=== PATIENT | male | born 1985 | race Caucasian/White ===

== ENCOUNTER 2020-07-17 13:14 | Emergency (ER) | payer MEDICAID, SELFPAY ==
--- NOTE | 2020-07-17 | XR_ITS ---
EXAMINATION: XR SHOULDER, RIGHT CLINICAL INFORMATION: Pain status-post fall. COMPARISON: None TECHNIQUE: AP external rotation and scapular Y views of the right shoulder are submitted. FINDINGS: There is a comminuted, displaced fracture of the mid third of the right clavicle. There is 3.5 cm of overriding of fracture fragments. The distal fracture fragment shows greater than one shaft width of caudal displacement. The right glenohumeral joint is intact. The acromioclavicular and coracoclavicular intervals are normal. No soft tissue gas or foreign body is seen. There is no right pneumothorax. IMPRESSION: Findings are consistent with a comminuted, displaced mid third right clavicular fracture.
--- NOTE | 2020-07-17 | CT_ITS ---
EXAMINATION: CT HEAD WITHOUT CONTRAST CLINICAL INFORMATION: Fall with loss of consciousness. COMPARISON: CT head noncontrast 07/11/2020, 02/20/2018 TECHNIQUE: Contiguous axial imaging was performed from the skull base to vertex without intravenous administration of contrast. Additional 2-D coronal and sagittal reformatted images are generated on the CT workstation and uploaded to PACS. DOSE LOWERING TECHNIQUES: This CT examination was performed using dose optimization techniques as appropriate, variously including the following: *Automated exposure control *Adjustment of mA and/or kV according to patient size (this includes techniques or standardized protocols for targeted exams where dose is matched to indication/reason for exam; i.e. extremities or head) *Use of iterative reconstruction technique DLP: 703 mGy-cm FINDINGS: There is no intracranial hemorrhage, hematoma, or extra-axial fluid collection. The ventricles are normal in size. There is no hydrocephalus, edema, or mass effect. There is encephalomalacia and gliosis inferior right frontal lobe similar to prior study. There is no edema or mass effect. The remainder of the thomson-white matter differentiation appears symmetric. There is no midline shift. There is no visible acute territorial infarct or mass lesion. The calvarium appears intact. There is no pneumocephalus or orbital emphysema. The visualized sinuses and middle ears and mastoid air cells show no significant mucosal thickening. There are no air-fluid levels. IMPRESSION: No acute intracranial abnormality.
--- NOTE | 2020-07-17 | CT_ITS ---
EXAMINATION: CT CERVICAL SPINE WITHOUT CONTRAST CLINICAL INFORMATION: Fall with loss of consciousness COMPARISON: CT cervical spine noncontrast 02/20/2018 TECHNIQUE: Multidetector volumetric CT imaging of the cervical spine is performed without contrast in the axial plane. Additional 2D reformatted coronal and sagittal images are generated on the CT workstation and uploaded to PACS. DOSE LOWERING TECHNIQUES: This CT examination was performed using dose optimization techniques as appropriate, variously including the following: *Automated exposure control *Adjustment of mA and/or kV according to patient size (this includes techniques or standardized protocols for targeted exams where dose is matched to indication/reason for exam; i.e. extremities or head) *Use of iterative reconstruction technique DLP: 410 mGy-cm FINDINGS: There is no vertebral compression fracture, fracture line, spondylolisthesis, or prevertebral soft tissue swelling. The craniocervical junction appears normal. The odontoid appears intact. There is normal cervical lordosis. There are no significant degenerative changes. There is no apical pneumothorax. IMPRESSION: No acute bony abnormality or prevertebral soft tissue swelling.
--- NOTE | 2020-07-17 | XR_ITS ---
EXAMINATION: XR CLAVICLE, RIGHT CLINICAL INFORMATION: Pain. COMPARISON: None TECHNIQUE: Single view of the right clavicle. FINDINGS: There is a comminuted, displaced fracture of the mid third of the right clavicle. The distal fracture fragment shows 1.0 cm of caudal displacement, and there is 3.5 cm of overriding of fracture fragments. The acromioclavicular and coracoclavicular intervals are normal. The soft tissue planes are unremarkable. No right pneumothorax is seen. IMPRESSION: A comminuted, displaced fracture is seen of the mid third of the right clavicle.
--- NOTE | 2020-07-17 | XR_ITS ---
EXAMINATION: XR RIBS, BILATERAL WITH PA CHEST CLINICAL INFORMATION: Pain status-post fall. COMPARISON: Radiographs of the left ribs dated 11/22/2015; right clavicular and shoulder radiographs dated 07/17/2020; prior chest radiograph as remote as 07/06/2016.. TECHNIQUE: 2 views of the left ribs were obtained, together with 2 PA views of the chest. FINDINGS: Lungs are clear. No consolidation, pneumothorax, or pleural effusion. The cardiomediastinal silhouette and pulmonary vasculature are normal. There is a healed fracture of the anterior left 10th rib, seen on prior chest radiographs as remote as 07/06/2016. There is an adjacent healed or healing fracture of the distal left 9th rib, with mild displacement and adjacent periosteal thickening. There is no dislocation. A mid third right clavicular fracture is redemonstrated. IMPRESSION: 1. There is a chronic, healed fracture of the left 10th rib. There is an adjacent, healed or healing fracture of the distal left ninth rib. Please correlate clinically. No pleural effusion or pneumothorax is seen. 2. No definite acute fracture is seen. 3. A mid third right clavicular fracture is redemonstrated.
[2020-07-17 15:00] VITALS: BP 129/77; PULSE 99; RESP 20; TEMP 37.1; O2SAT 98; BMI 24.3
--- NOTE | 2020-07-17 15:09 | ED.FALL ---
HPI - Fall General Chief Complaint: Fall <AMADA Coats Last Filed: 07/17/20 17:43> Stated Complaint: LEG, NECK PAIN - FELL DOWN FLIGHT OF STAIRS <AMADA Coats Last Filed: 07/17/20 17:43> Time Seen by Provider: 07/17/20 14:49 <AMADA Coats Last Filed: 07/17/20 17:43> Source: patient <AMADA Coats Last Filed: 07/17/20 17:43> Mode of arrival: ambulatory <AMADA Coats Last Filed: 07/17/20 17:43> Limitations: no limitations <AMADA Coats Last Filed: 07/17/20 17:43> History of Present Illness HPI Narrative: 35 y/o male presenting with right sided shoulder and chest pain s/p fall yesterday. He states he was intoxicated and fell down a set of stairs, unknown how many. He thinks he lost consciousness but he was so intoxicated that he doesn't remember much about the current events. <AMADA Coats Last Filed: 07/17/20 17:43> Related Data Home Medications: Previous Rx's Medication Instructions Recorded ibuprofen 600 mg PO Q6H PRN #30 tab NS 07/17/20 <AMADA Coats Last Filed: 07/17/20 17:43> Allergies/Adverse Reactions: Allergies Allergy/AdvReac Type Severity Reaction Status Date / Time shellfish derived Allergy Unknown HIVES Verified 07/17/20 17:39 [SHELLFISH DERIVED] SEAFOOD Allergy Unknown UNKNOWN Uncoded 07/02/20 15:29 <AMADA Coats Last Filed: 07/17/20 17:43> Review of Systems Constitutional: Constitutional: Reports body ache(s), Denies chills, Denies fever(s), Denies headache(s) and Denies weakness <AMADA Coats Last Filed: 07/17/20 17:43> Eyes: Eyes: Reports no additional eye complaints <AMADA Coats Last Filed: 07/17/20 17:43> ENT: Reports system reviewed and no additional complaints, except as documented, Denies vertigo, Denies dizziness, Denies headache(s), Denies lip swelling, Denies epistaxis and Denies disequilibrium <AMADA Coats Last Filed: 07/17/20 17:43> Cardiovascular: Cardiovascular: Denies chest pain, Denies chest pain with activity, Denies rapid heart rate, Denies pedal edema, Reports claudication, Reports Loss of Consciousness and Denies dyspnea <AMADA Coats Last Filed: 07/17/20 17:43> Respiratory: Respiratory: Denies chest congestion, Denies hemoptysis, Denies dyspnea and Denies wheezing <AMADA Coats Last Filed: 07/17/20 17:43> Gastrointestinal: Gastrointestinal: Reports no additional gastrointestinal complaints <AMADA Coats Last Filed: 07/17/20 17:43> Genitourinary: Genitourinary: Denies hematuria and Denies dysuria <AMADA Coats Last Filed: 07/17/20 17:43> Musculoskeletal: Musculoskeletal: Reports myalgias, Reports deformity (right shoulder) and Denies tingling <AMADA Coats Last Filed: 07/17/20 17:43> Neurologic: Denies vertigo, Denies dizziness, Denies headache(s), Denies focal weakness, Reports memory loss, Denies convulsions, Denies seizure-like activity, Denies Sensory deficit (Neuro), Denies tingling, Denies paresthesias, Denies disequilibrium and Denies weakness <AMADA Coats Last Filed: 07/17/20 17:43> Psychiatric: Psychiatric: Reports memory loss <AMADA Coats Last Filed: 07/17/20 17:43> Endocrine: Endocrine: Reports no additional endocrine complaints <AMADA Coats Last Filed: 07/17/20 17:43> Hematologic/Lymphatic: Hematologic/Lymphatic: Reports easy bruising <AMADA Coats Last Filed: 07/17/20 17:43> Allergic/Immunologic: Allergic/Immunologic: Denies lip swelling and Denies wheezing <AMADA Coats Last Filed: 07/17/20 17:43> PMFSH Past Medical History Medical History: Medical History (Updated 10/03/20 @ 00:01 by Emile Osborne) Seizure <AMADA Coats - Last Filed: 07/17/20 17:43> Social History Social History: Social History Alcohol intake: current Alcohol intake frequency: 3 or more drinks per day Smoking Status: Never smoker Use of substances other than those prescribed or required for medical reasons: Yes Substance Use Type: Crack/Cocaine Last Used Substance: Unknown Advance Directives: No Advance Directives Information Provided: No <AMADA Coats Last Filed: 07/17/20 17:43> Physical Exam Vital Signs and I&O and Narrative: Vital Signs and I&O: Vital Signs Temp 98.8 F 07/17/20 15:00 Pulse 79 07/17/20 15:58 Resp 16 07/17/20 15:58 BP 115/74 07/17/20 15:58 Pulse Ox 99 07/17/20 15:58 Intake & Output 07/17/20 07/17/20 07/18/20 06:59 18:59 06:59 Weight 72.575 kg Body Mass Index 24.3 <AMADA Coats - Last Filed: 07/17/20 17:43> Vital Signs and I&O: Vital Signs Temp 98.8 F 07/17/20 15:00 Pulse 79 07/17/20 15:58 Resp 16 07/17/20 15:58 BP 115/74 07/17/20 15:58 Pulse Ox 99 07/17/20 15:58 Intake & Output 07/17/20 07/17/20 07/18/20 06:59 18:59 06:59 Weight 72.575 kg Body Mass Index 24.3 <Kamron Rodríguez DO - Last Filed: 07/18/20 01:58> Const: General: cooperative, healthy appearing, comfortable and no acute distress <AMADA Coats Last Filed: 07/17/20 17:43> Orientation/consciousness: patient oriented x3 <AMADA Coats Last Filed: 07/17/20 17:43> HENMT: Head: Yes normal to inspection <AMADA Coats Last Filed: 07/17/20 17:43> Ears: hearing grossly normal bilaterally <AMADA Coats Last Filed: 07/17/20 17:43> General nose exam: Normal external nose present <AMADA Coats - Last Filed: 07/17/20 17:43> Face and sinus: Yes normal facial exam <AMADA Coats Last Filed: 07/17/20 17:43> Mouth: Normal oral and palatal mucosa present <AMADA Coats - Last Filed: 07/17/20 17:43> Teeth and gingiva: dentition normal <AMADA Coats - Last Filed: 07/17/20 17:43> Throat: Yes posterior oropharynx normal <AMADA Coats - Last Filed: 07/17/20 17:43> Eyes: General: appearance normal, both eyes and all related structures <AMADA Coats Last Filed: 07/17/20 17:43> Neck: Neck: Yes full ROM and Yes trachea midline <AMADA Coats Last Filed: 07/17/20 17:43> Chest: Chest palpation & inspection: abnormal inspection of the chest swelling (anterior superior portion); no erythema and no crepitus <AMADA Coats Last Filed: 07/17/20 17:43> Resp: Effort & Inspection: normal respiratory effort <AMADA Coats Last Filed: 07/17/20 17:43> Auscultation: clear to auscultation bilaterally <AMADA Coats Last Filed: 07/17/20 17:43> Cardio: Rate: regular rate <AMADA Coats Last Filed: 07/17/20 17:43> Rhythm: regular rhythm <AMADA Coats Last Filed: 07/17/20 17:43> Heart sounds: S1 normal heart sound present and S2 normal heart sound present <AMADA Coats Last Filed: 07/17/20 17:43> GI: Inspection: Yes normal to inspection <AMADA Coats Last Filed: 07/17/20 17:43> Palpation (GI): Soft to palpation and nontender <AMADA Coats Last Filed: 07/17/20 17:43> Percussion: Yes normal to percussion <AMADA Coats - Last Filed: 07/17/20 17:43> : General: Yes no CVA tenderness <AMADA Coats - Last Filed: 07/17/20 17:43> Back/Spine/Pelvis: Back: no CVA tenderness <AMADA Coats - Last Filed: 07/17/20 17:43> Cervical Spine: cervical ROM normal, No Cervical spine tenderness and No step off deformity <AMADA Coats - Last Filed: 07/17/20 17:43> Thoracic/Lumbar Spine: thoracic and lumbar spine normal to inspection and thoraco-lumbar ROM normal <AMADA Coats - Last Filed: 07/17/20 17:43> Pelvis: no pain with anterior-posterior compression <AMADA Coats - Last Filed: 07/17/20 17:43> Skin: Trauma: abrasion (to right knee and anterior gordon ) <AMADA Coats - Last Filed: 07/17/20 17:43> Neuro: General: patient oriented x3 and gait normal <AMADA Coats - Last Filed: 07/17/20 17:43> Cranial nerves: Yes CN's II-XII intact bilaterally <AMADA Coats - Last Filed: 07/17/20 17:43> Sensory Exam: No Sensory deficit (Neuro) <AMADA Coats - Last Filed: 07/17/20 17:43> Psych: Appearance: grossly normal <AMADA Coats - Last Filed: 07/17/20 17:43> Mental Status: mental status grossly normal <AMADA Coats - Last Filed: 07/17/20 17:43> Speech and movement: Normal speech and movement present <AMADA Coats Last Filed: 07/17/20 17:43> Course Course Hospital Course: exam consistent with right clavicular fracture, possible rub fracture however less likely. ecchymosis on LUE noted - will check CPK to r/o rhabdo given his downtime was unknown. no clinical evidence of compartment syndrome. XR and CT scan head/neck ordered <AMADA Coats - Last Filed: 07/17/20 17:43> Reevaluation(s) Reevaluation #1: XR shows clavilcular fracture. will place in sling for comfort. awaiting read of CT head/neck <AMADA Coats - Last Filed: 07/17/20 17:43> Reevaluation #2: CT head/cervical spine showed no acute abnormalities. mild rhabdo without CONI. results d/w patient - placed in sling. stable for d/c and plan to f/u with ortho <AMADA Coats - Last Filed: 07/17/20 17:43> MDM - Fall Differential Diagnosis Differential diagnosis: Likely dislocation, fracture and concussion with loss of consciousness <AMADA Coats Last Filed: 07/17/20 17:43> Lab Data Result diagrams: : 07/17/20 16:05 07/17/20 16:05 <AMADA Coats - Last Filed: 07/17/20 17:43> Labs: Lab Results 07/17/20 07/17/20 07/17/20 Range/Units 16:05 16:05 16:05 WBC 6.2 (4.8-10.8) X10*3/uL RBC 3.61 L (4.60-5.80) X10*6/uL Hgb 12.7 L (14.0-18.0) g/dl Hct 38.0 L (42-52) % MCV 105.3 H (80-98) fL MCH 35.2 H (27.0-33.0) pg MCHC 33.4 (31.0-36.0) g/dl RDW 13.8 (11.0-16.0) % Plt Count 210 (160-400) X10*3/uL MPV 9.0 L (9.4-12.4) fL Immature Gran % (Auto) 0.3 (0.0-0.4) % Neut % (Auto) 56.3 (45-73) % Lymph % (Auto) 23.9 (20-40) % [place] % (Auto) 16.9 H (2-11) % Eos % (Auto) 1.8 (0-4) % Baso % (Auto) 0.8 (0-2) % Neut # (Auto) 3.5 (2.0-8.3) X10*3/uL Lymph # (Auto) 1.5 (1.2-4.9) X10*3/uL [place] # (Auto) 1.1 (0.1-1.2) X10*3/uL Eos # (Auto) 0.1 (0.0-0.4) X10*3/uL Baso # (Auto) 0.1 (0.0-0.2) X10*3/uL Abs Immat Gran (auto) 0.02 (0.00-0.03) X10*3/uL Absolute Nucleated RBC 0.000 (0.0-0.012) X10*3/uL Nucleated RBC % (auto) 0.0 (0.0-0.2) /100WBC Sodium 143 (135-145) mmol/L Potassium 3.7 (3.3-5.1) mmol/l Chloride 103 (96-108) mmol/L Carbon Dioxide 29 (22-29) mmol/L Anion Gap 15 (12-20) BUN 5 L (9-16) mg/dL Creatinine 0.75 (0.5-1.4) mg/dL Estim Creat Clear Calc 133.0 Estimated GFR > 60 Random Glucose 87 (60-115) mg/dL Calcium 9.0 (8.4-10.2) mg/dL Total Creatine Kinase 1236 H (38-174) U/L Ethyl Alcohol 168 mg/dL <AMADA Coats - Last Filed: 07/17/20 17:43> Lab Results 07/17/20 07/17/20 07/17/20 Range/Units 16:05 16:05 16:05 WBC 6.2 (4.8-10.8) X10*3/uL RBC 3.61 L (4.60-5.80) X10*6/uL Hgb 12.7 L (14.0-18.0) g/dl Hct 38.0 L (42-52) % MCV 105.3 H (80-98) fL MCH 35.2 H (27.0-33.0) pg MCHC 33.4 (31.0-36.0) g/dl RDW 13.8 (11.0-16.0) % Plt Count 210 (160-400) X10*3/uL MPV 9.0 L (9.4-12.4) fL Immature Gran % (Auto) 0.3 (0.0-0.4) % Neut % (Auto) 56.3 (45-73) % Lymph % (Auto) 23.9 (20-40) % [place] % (Auto) 16.9 H (2-11) % Eos % (Auto) 1.8 (0-4) % Baso % (Auto) 0.8 (0-2) % Neut # (Auto) 3.5 (2.0-8.3) X10*3/uL Lymph # (Auto) 1.5 (1.2-4.9) X10*3/uL [place] # (Auto) 1.1 (0.1-1.2) X10*3/uL Eos # (Auto) 0.1 (0.0-0.4) X10*3/uL Baso # (Auto) 0.1 (0.0-0.2) X10*3/uL Abs Immat Gran (auto) 0.02 (0.00-0.03) X10*3/uL Absolute Nucleated RBC 0.000 (0.0-0.012) X10*3/uL Nucleated RBC % (auto) 0.0 (0.0-0.2) /100WBC Sodium 143 (135-145) mmol/L Potassium 3.7 (3.3-5.1) mmol/l Chloride 103 (96-108) mmol/L Carbon Dioxide 29 (22-29) mmol/L Anion Gap 15 (12-20) BUN 5 L (9-16) mg/dL Creatinine 0.75 (0.5-1.4) mg/dL Estim Creat Clear Calc 133.0 Estimated GFR > 60 Random Glucose 87 (60-115) mg/dL Calcium 9.0 (8.4-10.2) mg/dL Total Creatine Kinase 1236 H (38-174) U/L Ethyl Alcohol 168 mg/dL <Kamron Rodríguez DO - Last Filed: 07/18/20 01:58> Critical Care Time Critical Care Time Critical Care Time: No <AMADA Coats - Last Filed: 07/17/20 17:43> Discharge Plan Discharge Clinical Impression: Broken clavicle, Rhabdomyolysis, Alcohol abuse <AMADA Coats - Last Filed: 07/17/20 17:43> Patient Disposition: Home, Self-Care <AMADA Coats - Last Filed: 07/17/20 17:43> Instructions: Clavicle Fracture (ED), Rhabdomyolysis (ED), Abuse of Alcohol (ED) <AMADA Coats - Last Filed: 07/17/20 17:43> Additional Instructions: Wear a sling to to your right arm and limit due of that arm so that your collar bone can heal. Use ice for 20 minutes at a time several times per day to help with pain and swelling. Follow up [facility] and your Primary Care doctor. Stay hydrated. <AMADA Coats - Last Filed: 07/17/20 17:43> Prescriptions: New ibuprofen 600 mg tablet 600 mg PO Q6H PRN (Reason: pain) Qty: 30 RF: 0 <AMADA Coats - Last Filed: 07/17/20 17:43> Referrals: Mary Cortez MD [Physician] - 2 days <AMADA Coats - Last Filed: 07/17/20 17:43> Interventions: ED Discharge Assessment Last Done: 07/17/20 18:05 <AMADA Coats - Last Filed: 07/17/20 17:43> Discharge Date/Time: 07/17/20 18:12 <AMADA Coats - Last Filed: 07/17/20 17:43>
[2020-07-17] MEDS: Acetaminophen 325 MG TABLET 650 MG PO (15:49)
[2020-07-17 15:58] VITALS: BP 115/74; PULSE 79; RESP 16; O2SAT 99
[2020-07-17 16:13] LABS: MANUAL DIFF FLAG NO
[2020-07-17 16:15] LABS: Basophils Absolute Auto 0.1 X10*3/uL (0.0-0.2); Basophils Percent Auto 0.8 % (0-2); Eosinophils Absolute Auto 0.1 X10*3/uL (0.0-0.4); Eosinophils Percent Auto 1.8 % (0-4); Hemoglobin 12.7 g/dl (14.0-18.0); Imm Gran Abs Auto 0.02 X10*3/uL (0.00-0.03); Imm Gran Pct Auto 0.3 % (0.0-0.4); Lymphocytes Absolute Auto 1.5 X10*3/uL (1.2-4.9); Lymphocytes Percent Auto 23.9 % (20-40); Mean Corpuscular HGB Conc 33.4 g/dl (31.0-36.0); Mean Corpuscular Hemoglobin 35.2 pg (27.0-33.0); Mean Corpuscular Volume 105.3 fL (80-98); Monocytes Absolute Auto 1.1 X10*3/uL (0.1-1.2); Monocytes Percent Auto 16.9 % (2-11); Neutrophils Absolute Auto 3.5 X10*3/uL (2.0-8.3); Neutrophils Percent Auto 56.3 % (45-73); Platelet Count 210 X10*3/uL (160-400); Red Blood Count 3.61 X10*6/uL (4.60-5.80); Red Cell Distribution Width 13.8 % (11.0-16.0); White Blood Count 6.2 X10*3/uL (4.8-10.8)
[2020-07-17 16:51] LABS: Ethanol 168 mg/dL
[2020-07-17 16:53] LABS: Anion Gap 15 (12-20); Blood Urea Nitrogen 5 mg/dL (9-16); Carbon Dioxide 29 mmol/L (22-29); Chloride 103 mmol/L (96-108); Estimated Glomerular Filt Rate > 60; Glucose Random 87 mg/dL (60-115); Potassium 3.7 mmol/l (3.3-5.1); Sodium 143 mmol/L (135-145)
== END 2020-07-17 18:12 | disposition home or self-care (01) ==
PROVIDERS: Physician Assistant; Emergency Provider Emergency Medicine
DX: F10.10 Alcohol abuse, uncomplicated (principal); Y90.6 Blood alcohol level of 120-199 mg/100 ml; S42.031A Displaced fracture of lateral end of right clavicle, initial encounter for closed fracture; T79.6XXA Traumatic ischemia of muscle, initial encounter; W10.8XXA Fall (on) (from) other stairs and steps, initial encounter; F14.90 Cocaine use, unspecified, uncomplicated; Y93.9 Activity, unspecified; Y92.9 Unspecified place or not applicable; Y99.9 Unspecified external cause status
CPT/HCPCS: 36415; 70450; 71110; 72125; 73000; 73030; 80048; 80320; 82550; 85025; 99284

== ENCOUNTER 2020-07-18 20:44 | Emergency (ER) | payer MEDICAID, SELFPAY ==
[2020-07-18 20:52] VITALS: BP 125/84; PULSE 84; RESP 16; TEMP 36.5; BMI 22.9
--- NOTE | 2020-07-18 21:06 | ED_ITS ---
HPI - Alcohol General Chief Complaint: ETOH/Substance Use Stated Complaint: etoh Time Seen by Provider: 07/18/20 21:06 Source: patient, EMS and RN notes reviewed Mode of arrival: EMS History of Present Illness HPI narrative: This is a 35-year-old male with significant past medical history of alcohol intoxication and dependence who is brought in via EMS for same. He states he drink to, 25 oz, beers earlier today and denies wanting any detox. In addition, he is reporting 5 to 6/10 pain secondary to prior injuries that were previously evaluated. Otherwise, he denies fevers, chills, shortness of breath, chest pain / palpitations,nausea, vomiting, abdominal pain, or diarrhea. Patient denies any new trauma Chronic alcohol use: Yes Previous visits for alcohol intoxication: Yes Recent trauma: Yes Related Data Previous Rx's Medication Instructions Recorded ibuprofen 600 mg PO Q6H PRN #30 tab NS 07/17/20 Allergies Allergy/AdvReac Type Severity Reaction Status Date / Time shellfish derived Allergy Unknown HIVES Verified 07/17/20 17:39 [SHELLFISH DERIVED] SEAFOOD Allergy Unknown UNKNOWN Uncoded 07/02/20 15:29 Review of Systems Review of Systems: Pertinent positives and negatives as stated in HPI and 10 point review of systems is otherwise negative. [facility] Past Medical History Medical History Asthma Seizure Social History Social History Alcohol intake: current Alcohol intake frequency: 3 or more drinks per day Alcohol type: beer and hard liquor Smoking Status: Current every day smoker Use of substances other than those prescribed or required for medical reasons: Yes Substance Use Type: Crack/Cocaine Substance Use Frequency: Chronic Longstanding Last Used Substance: Hours (ago) Advance Directives: No Advance Directives Information Provided: No Physical Exam Vital Signs and I&O and Narrative: Vital Signs and I&O: Vital Signs Temp 97.8 F 07/18/20 22:28 Pulse 85 07/19/20 02:00 Resp 16 07/19/20 02:00 BP 106/61 07/19/20 02:00 Pulse Ox 97 07/19/20 02:00 Intake & Output 07/18/20 07/18/20 07/19/20 06:59 18:59 06:59 Weight 72.575 kg Body Mass Index 22.9 VITAL SIGNS: Reviewed. GENERAL: Well developed, well nourished, in no acute distress , intoxicated, smells of alcohol. HEAD: Normocephalic/atraumatic, EYES: PERRLA, EOMI intact without pain, no nystagmus/pallor/icterus noted EARS: Ext canals without abnormality, TMs non-bulging and non-erythematous NOSE: Nares patent bilateral OROPHARYNX: no oral lesions noted, posterior pharynx clear and non-erythematous without noted tonsillar enlargement/erythema/exudates NECK: Supple, no adenopathy LUNGS: Normal breath sounds. No adventitious sounds or accessory muscle use. SpO2<> CARDIOVASCULAR: Regular rate and rhythm without noted murmurs, no JVD or lower extremity edema. ABDOMEN: Soft, non-tender, non-distended with bowel sounds. No rigidity. No guarding. No palpable masses or hernias noted MUSCULOSKELETAL: there is tenderness and ecchymosis to the right clavicle with known fracture as well as extensive ecchymosis of the left upper extremity with maintenance of neurovascular distal to the area of ecchymosis, otherwise there are no acute findings on gross inspection. EXTREMITIES: No cyanosis, clubbing or edema. SKIN: Inspection of the skin reveals no rashes, ulcerations, jaundice, pallor, or petechiae. NEUROLOGIC: Alert and oriented x 4. Strength and sensation to light touch were grossly intact Course Course Hospital Course: This is a 35-year-old male that while he is intoxicated there are no acute findings that would preclude him from being discharged as long as he has a safe drive and place to go. As per the patient this would be provided by his . 0500: on re-evaluation patient is clinically sober for discharge with a steady gait, alert and oriented x4. MDM - Alcohol MDM Narrative Medical decision making narrative: This is a 35-year-old male with history and clinical presentation consistent with alcohol dependence and intoxication, not suicidal, and is declining detox at this time. Lab Data Labs: Lab Results 07/18/20 Range/Units 23:31 Ethyl Alcohol 286 mg/dL Discharge Plan Discharge Clinical Impression: Alcoholic intoxication Qualifiers: Complication of substance-induced condition: uncomplicated Qualified Code(s): F10.920 - Alcohol use, unspecified with intoxication, uncomplicated Patient Disposition: Home, Self-Care Instructions: Alcohol Intoxication (ED) Additional Instructions: The patient and/or family acknowledge understanding of results (as applicable), diagnosis, treatment plan, need for follow up, and symptoms that should prompt a return to the emergency room. Prescriptions: No Action ibuprofen 600 mg tablet 600 mg PO Q6H PRN (Reason: pain) Qty: 30 RF: 0 Referrals: Kelly Fajardo [Emergency Nurse] - 2 days ( alcohol dependence)
--- NOTE | 2020-07-18 21:29 | PC.NURSE ---
PT UPRIGHT IN BED, OFFERS NO ACUTE COMPLAINTS. THIS RN SPOKE W/ PT'S SPS WHO WAS ADVISED OF PLAN OF CARE, PER DR GHOTRA PT OK FOR D/C W/ SOBER RIDE HOME, OTHERWISE PT MUST SOBER UP IN ED.
[2020-07-18 22:28] VITALS: BP 114/68; PULSE 85; RESP 18; TEMP 36.6; O2SAT 98
--- NOTE | 2020-07-18 22:37 | PC.NURSE ---
PT L SIDE LYING IN BED SLEEPING, RR EVEN UNLABORED, SKIN WPD, NAD. PT AWOKEN BY TECH FOR VITALS, PT REQUESTING FOOD, PROVIDED SANDWICH, PT BACK TO SLEEP.
--- NOTE | 2020-07-18 23:08 | PC.NURSE ---
Report received. Patient sleeping in bed. Arousable.
[2020-07-18 23:59] LABS: Ethanol 286 mg/dL
[2020-07-19] VITALS: BP 113/62; PULSE 82; RESP 14; O2SAT 93
--- NOTE | 2020-07-19 01:55 | PC.NURSE ---
Report received. Sleeping. Arousable.
[2020-07-19 02:00] VITALS: BP 106/61; PULSE 85; RESP 16; O2SAT 97
--- NOTE | 2020-07-19 03:44 | PC.NURSE ---
pt sleeping rr even and reg no s/s of distress. report received from Kelly hastings
--- NOTE | 2020-07-19 04:25 | PC.NURSE ---
pt is awake alert talking in full sentences asking beverages and given. skin warm and dry. no tremors felt or visable.
[2020-07-19 04:37] VITALS: BP 120/76; PULSE 74; RESP 16; O2SAT 99
--- NOTE | 2020-07-19 05:00 | PC.NURSE ---
pt ambulated in hallway with steady gait. pt has lucy po fluids and snacks with no n/v/d. pt skin in pink warm and dry. pt is aox3 with no s/s of distress noted.
== END 2020-07-19 05:13 | disposition home or self-care (01) ==
PROVIDERS: Emergency Provider Student in an Organized Health Care Education/Training Program
DX: F10.220 Alcohol dependence with intoxication, uncomplicated (principal); Y90.8 Blood alcohol level of 240 mg/100 ml or more; F17.200 Nicotine dependence, unspecified, uncomplicated
CPT/HCPCS: 36415; 80320; 99284

== ENCOUNTER → 2020-12-10 13:27 | Outpatient (BNVA) | payer MEDICAID, SELFPAY | PROVIDERS: PCP Internal Medicine; Visit Provider Internal Medicine | DX: I45.5 Other specified heart block (principal); R55 Syncope and collapse; G47.10 Hypersomnia, unspecified; G47.30 Sleep apnea, unspecified; R56.9 Unspecified convulsions | CPT/HCPCS: 93005; 99212 ==

== ENCOUNTER 2020-12-21 15:45 | Emergency (ER) | payer MEDICAID, SELFPAY ==
--- NOTE | ~2020-12-21 | XR_ITS ---
EXAMINATION: XR CHEST CLINICAL INFORMATION: Chest pain COMPARISON: Chest x-ray 05/12/2020 TECHNIQUE: 2 views of the chest were obtained. FINDINGS: Cardiac monitoring device over the left anterior chest. No significant abnormality is noted involving the heart, lungs, mediastinum, bony thorax or soft tissues. XR/XR chest 2V IMPRESSION: Unremarkable examination.
--- NOTE | ~2020-12-21 | CT_ITS ---
EXAMINATION: CT HEAD WITHOUT CONTRAST CT CERVICAL SPINE WITHOUT CONTRAST CLINICAL INFORMATION: Fall. Pain. COMPARISON: CT head and CT cervical spine 07/17/2020 TECHNIQUE: Imaging was performed from the skull base to vertex without intravenous administration of contrast. In addition, helical noncontrast CT imaging was acquired through the cervical spine and source images were reviewed along with axial reconstructions and sagittal and coronal MPRs. [This CT examination was performed using dose optimization techniques as appropriate, variously including the following: *Automated exposure control *Adjustment of mA and/or kV according to patient size (this includes techniques or standardized protocols for targeted exams where dose is matched to indication/reason for exam; i.e. extremities or head) *Use of iterative reconstruction technique] DLP: 1118 mGy-cm FINDINGS: HEAD: There is no evidence of acute intracranial hemorrhage or acute territorial infarction. 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 No abnormal mass-effect or midline shift is seen. Sena to white matter differentiation is well preserved. No extra-axial fluid collections are identified. There is atrophy with prominence of the ventricles and the sulci and hypodensity of the periventricular white matter due to chronic small vessel ischemic disease. There are vascular calcifications of the internal carotid arteries bilaterally. There is no osseous abnormality. The mastoid air cells and visualized portions of the paranasal sinuses are well-aerated. CERVICAL SPINE: There is no evidence of acute cervical spine fracture. Vertebral bodies remain normal in height. Cervical vertebrae have normal alignment. Cervical disc heights are normal. The facet joints are normal. No pre- or paravertebral soft tissue abnormality is identified. Limited assessment of the lung apices is unremarkable. There is multilevel fracture of the right clavicle CT/CT head/brain wo con IMPRESSION: 1. No acute intracranial pathology. 2. No CT evidence of acute cervical spine fracture or traumatic subluxation
--- NOTE | ~2020-12-21 | CT_ITS ---
EXAMINATION: CT HEAD WITHOUT CONTRAST CLINICAL INFORMATION: Trauma to the head COMPARISON: CT head 07/11/2020 TECHNIQUE: Contiguous axial imaging was performed from the skull base to vertex without intravenous administration of contrast. Coronal and sagittal reformatted images are performed at the CT scanner. [This CT examination was performed using dose optimization techniques as appropriate, variously including the following: *Automated exposure control *Adjustment of mA and/or kV according to patient size (this includes techniques or standardized protocols for targeted exams where dose is matched to indication/reason for exam; i.e. extremities or head) *Use of iterative reconstruction technique] DLP: 703 mGy-cm. FINDINGS: There is no evidence of acute intracranial hemorrhage or acute territorial infarction. 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 No abnormal mass-effect or midline shift is seen. Sena to white matter differentiation is well preserved. No extra-axial fluid collections are identified. There is atrophy with prominence of the ventricles and the sulci and hypodensity of the periventricular white matter due to chronic small vessel ischemic disease. There are vascular calcifications of the internal carotid arteries bilaterally. There is no osseous abnormality. The mastoid air cells and visualized portions of the paranasal sinuses are well-aerated. CT/CT head/brain wo con IMPRESSION: No acute intracranial pathology.
--- NOTE | ~2020-12-21 | CT_ITS ---
EXAMINATION: CT CERVICAL SPINE WITHOUT CONTRAST CLINICAL INFORMATION: Fall, hit head COMPARISON: None TECHNIQUE: Helical imaging of the cervical spine was performed in the axial plane. Reformatted sagittal and coronal images were obtained. This CT examination was performed using dose optimization techniques as appropriate, variously including the following: *Automated exposure control *Adjustment of mA and/or kV according to patient size (this includes techniques or standardized protocols for targeted exams where dose is matched to indication/reason for exam; i.e. extremities or head) *Use of iterative reconstruction technique DLP: 1118 mGy-cm (in total with CT of the head) FINDINGS: There is mild straightening of the normal lordosis of the cervical spine. Vertebral body heights and intervertebral disc spaces are maintained. The posterior elements are intact. The left lateral mass of C1 is slightly anterior to the left lateral mass of C2 and the right lateral mass of C1 is slightly posterior in relation to the lateral mass of C2, likely due to the patient's head slightly rotated towards the right. The paravertebral soft tissues are normal. There is minimal pleural parenchymal scarring in the lung apices Spinal levels: C2-C3: Normal. C3-C4: Normal. C4-C5: Normal. C5-C6: Normal. C6-C7: Normal. C7-T1: Normal. CT/CT cervical spine wo con IMPRESSION: No acute bony abnormality of the cervical spine.
[2020-12-21 16:11] VITALS: BP 141/107; BP 180/110; PULSE 94; RESP 18; TEMP 36.6; O2SAT 98; BMI 25.1
--- NOTE | 2020-12-21 17:41 | ECG_ITS ---
Test Reason : SYNCOPE Blood Pressure : / mmHG Vent. Rate : 82 BPM Atrial Rate : 110 BPM P-R Int : 162 ms QRS Dur : 084 ms QT Int : 362 ms P-R-T Axes : 65 045 056 degrees QTc Int : 422 ms Normal sinus rhythm Normal ECG When compared with ECG of 21-DEC-2020 18:06, Premature ventricular complexes are no longer Present Referred By: Claudia Moon Electronically Signed By: Alistair MARIN
[2020-12-21] MEDS: Acetaminophen 325 MG TABLET 650 MG PO (17:58)
--- NOTE | 2020-12-21 18:08 | ED_ITS ---
HPI - General Adult General Chief complaint: General Medical Stated complaint: CP,ETOH INTOXICATION Time Seen by Provider: 12/21/20 17:22 Source: EMS Mode of arrival: EMS Limitations: no limitations History of Present Illness HPI narrative: 35-year-old male with a past medical history of seizure disorder, syncope, substance abuse, sinus pauses with ILR placed, RAND here s/p reported seizure. Patient has been a has history of seizures and this occurs when he decrease his alcohol intake. He tells me today he started to have an aura and the next thing he knew he woke up on the ground. He was incontinent. He tells me his brother told him he had a seizure. His brother is not here and unable to reach at this time. Right now he is complaining of a headache, nausea, generalized weakness. He is not currently taking any antiepileptics and does not see a neurologist. He has decreased his alcohol intake over the last week but is unable to quantify how much alcohol he drinks. He was also complaining of some chest discomfort to nursing but is denying this to me. No neck pain, back pain, chest pain, abdominal pain, vomiting, diarrhea. Related Data Home Medications Medication Instructions Recorded Confirmed No Known Home Meds 12/10/20 12/10/20 Allergies Allergy/AdvReac Type Severity Reaction Status Date / Time shellfish derived Allergy Unknown HIVES Verified 12/21/20 16:07 [SHELLFISH DERIVED] SEAFOOD Allergy Unknown UNKNOWN Uncoded 07/02/20 15:29 Review of Systems Review of Systems: Yes all other systems are reviewed and are negative Constitutional: Constitutional: Reports no additional constitutional complai nts, Denies body ache(s), Denies chills, Denies fever(s), Reports headache(s) and Reports weakness Eyes: Eyes: Reports no additional eye complaints and Denies change in vision ENT: Reports system reviewed and no additional complaints, except as documented, Denies dizziness, Reports headache(s), Denies nasal congestion, Denies nasal discharge and Denies neck pain Cardiovascular: Cardiovascular: Reports no additional cardiovascular complaints, Denies chest pain, Denies leg edema and Denies dyspnea Respiratory: Respiratory: Reports no additional respiratory complaints, Denies cough and Denies dyspnea Gastrointestinal: Gastrointestinal: Reports no additional gastrointestinal complaints, Denies abdominal pain, Denies diarrhea, Reports nausea and Denies vomiting Genitourinary: Genitourinary: Denies urinary incontinence Musculoskeletal: Musculoskeletal: Reports no additional musculoskeletal c omplaints, Denies back pain, Denies arthralgias, Denies joint swelling, Denies neck pain, Denies numbness and Denies tingling Integumentary/Breasts: Skin/Breast: Reports system reviewed and no additional complaints, except as docu and Denies rash Neurologic: Reports system reviewed and no additional complaints, except as documented, Denies Abnormal speech present, Denies dizziness, Reports headache(s), Denies numbness, Denies tingling and Reports weakness PMFSH Past Medical History Attestation statement: The following information was validated with the patient. Source: old records reviewed and nursing notes reviewed Medical History Asthma Seizure Syncope Surgical History History of mandibular surgery Family History Family History Maternal Grandfather Heart disease Mother Diabetes HTN (hypertension) Father Diabetes Social History Social History Alcohol intake: current Alcohol intake frequency: 3 or more drinks per day Alcohol type: hard liquor Smoking Status: Never smoker Cigarettes Per Day: 2 Years Smoked: 10 Use of substances other than those prescribed or required for medical reasons: No Substance Use Type: Crack/Cocaine Advance Directives: No Advance Directives Information Provided: No Physical Exam Vital Signs: Vital Signs: Last Vital Signs Temp 98.4 F 12/22/20 00:00 Pulse 78 12/22/20 00:00 Resp 18 12/22/20 00:00 BP 101/66 12/22/20 00:00 Pulse Ox 96 12/22/20 00:00 Body Mass Index 25.1 Const: General: cooperative, healthy appearing, comfortable and no acute distress Orientation/consciousness: patient oriented x3 Limitations: no limitations HENMT: Head: Yes normal to inspection Ears: hearing grossly normal bilaterally General nose exam: Normal external nose present Face and sinus: Yes normal facial exam Mouth: Normal oral and palatal mucosa present Throat: Yes posterior oropharynx normal Eyes: General: appearance normal, both eyes and all related structures Pupils: Equal, round and reactive pupils present Neck: Other: No midline tenderness, step-offs or deformities. Full range of motion. Neck: Yes normal visual inspection Chest: Chest palpation & inspection: normal inspection of the chest Resp: Effort & Inspection: normal respiratory effort Auscultation: clear to auscultation bilaterally Cardio: Rate: regular rate Rhythm: regular rhythm Peripheral pulses: Peripheral pulses 2+ throughout GI: Inspection: Yes normal to inspection Palpation (GI): Soft to palpation and nontender Auscultation: normal bowel sounds Back/Spine/Pelvis: Thoracic/Lumbar Spine: thoracic and lumbar spine normal to inspection Skin: General skin exam: no rashes or lesions noted Neuro: General: patient oriented x3, no focal motor deficits, normal sensation to monofilament and Unable to assess gait Cranial nerves: Yes CN's II-XII intact bilaterally, Yes Equal, round and reactive pupils present, Yes Bilaterally intact EOM present, Yes Nystagmus not present and Yes Normal facial strength present Cognition (Neuro): normal cognition Speech: No Abnormal speech present Gait exam (Neuro): Unable to assess gait Motor exam (neuro): 5/5 motor strength present throughout Sensory Exam: Normal double simultaneous stimulation for sensation Extrem: General: Yes normal to inspection Course Course Course Narrative: 35 year old male here status post witnessed seizure by family per patient although family unavailable to comment or be reached. Patient tells me that he has seizures when he decrease his alcohol intake and he has been decreasing his alcohol intake over the last week. On arrival mild tremor, mild hypertension. Alert oriented with neuro is intact. Is complaining of a headache, generalized weakness, nausea. Will need imaging head and neck, chest x-ray, EKG, labs, drug screen. 2100-Less likely seizure with normal lactic acid, only mildly elevated cpk. Mildly elevated lfts which is likely secondary to alcohol use and appear only mildly increased from baseline. Alcohol 404 so also less likely alcohol withdrawal seizure. Imaging unremarkable. Will plan for observation with sober re-eval. Placed in physician observation until sober re-eval. 0200-Sign out to night team pending sober re-eval. Medical Decision Making Medical Records Medical records reviewed: Yes I reviewed the patient's medical records. Lab Data Lab results reviewed: Yes I reviewed the patient's lab results. Result diagrams: 12/21/20 17:57 12/21/20 17:57 Labs: Lab Results 12/21/20 12/21/20 12/21/20 Range/Units 17:57 17:57 17:57 WBC 4.4 L (4.8-10.8) X10*3/uL RBC 4.38 L D (4.60-5.80) X10*6/uL Hgb 15.6 D (14.0-18.0) g/dl Hct 45.6 (42-52) % MCV 104.1 H (80-98) fL MCH 35.6 H (27.0-33.0) pg MCHC 34.2 (31.0-36.0) g/dl RDW 12.9 (11.0-16.0) % Plt Count 183 (160-400) X10*3/uL MPV 10.0 (9.4-12.4) fL Immature Gran % (Auto) 0.9 H (0.0-0.4) % Neut % (Auto) 38.8 L (45-73) % Lymph % (Auto) 49.8 H (20-40) % Gillespie % (Auto) 8.4 (2-11) % Eos % (Auto) 0.7 (0-4) % Baso % (Auto) 1.4 (0-2) % Lymph # (Auto) 2.2 (1.2-4.9) X10*3/uL Gillespie # (Auto) 0.4 (0.1-1.2) X10*3/uL Eos # (Auto) 0.0 (0.0-0.4) X10*3/uL Baso # (Auto) 0.1 (0.0-0.2) X10*3/uL Abs Immat Gran (auto) 0.04 H (0.00-0.03) X10*3/uL Absolute Neuts (auto) 1.7 L (2.0-8.3) X10*3/uL Absolute Nucleated RBC 0.000 (0.0-0.012) X10*3/uL Nucleated RBC % (auto) 0.0 (0.0-0.2) /100WBC PT (10.8-13.0) SEC INR (0.9-1.1) Sodium 147 H (135-145) mmol/L Potassium 4.0 (3.3-5.1) mmol/L Chloride 107 (96-108) mmol/L Carbon Dioxide 29 (22-29) mmol/L Anion Gap 15 (12-20) BUN 11 D (9-16) mg/dL Creatinine 0.81 (0.5-1.4) mg/dL Estim Creat Clear Calc 127.2 Estimated GFR > 60 Random Glucose 125 H D (60-115) mg/dL Lactic Acid (0.5-2.0) mmol/L Calcium 8.2 L D (8.4-10.2) mg/dL Magnesium 2.3 (1.6-2.6) mg/dL Total Bilirubin 0.5 (0.0-1.0) mg/dL Direct Bilirubin 0.3 (0.0-0.5) mg/dL AST 95 H (5-37) U/L ALT 84 H (0-40) U/L Alkaline Phosphatase 108 (39-117) U/L Total Creatine Kinase (38-174) U/L Troponin I High Sens 3.6 (<3.5-35.0) ng/L Total Protein 8.5 H (6.5-8.0) g/dL Albumin 4.3 (3.5-5.0) g/dL Urine Opiates Screen (Not Detect) Ur Barbiturates Screen (Not Detect) Ur Phencyclidine Scrn (Not Detect) Ur Amphetamines Screen (Not Detect) U Benzodiazepines Scrn (Not Detect) Urine Cocaine Screen (Not Detect) U Marijuana (THC) Screen (Not Detect) Ethyl Alcohol mg/dL COVID-19 (DARRYL) (Negative) COVID-19 Clin Com 12/21/20 12/21/20 12/21/20 Range/Units 17:57 17:57 17:57 WBC (4.8-10.8) X10*3/uL RBC (4.60-5.80) X10*6/uL Hgb (14.0-18.0) g/dl Hct (42-52) % MCV (80-98) fL MCH (27.0-33.0) pg MCHC (31.0-36.0) g/dl RDW (11.0-16.0) % Plt Count (160-400) X10*3/uL MPV (9.4-12.4) fL Immature Gran % (Auto) (0.0-0.4) % Neut % (Auto) (45-73) % Lymph % (Auto) (20-40) % Gillespie % (Auto) (2-11) % Eos % (Auto) (0-4) % Baso % (Auto) (0-2) % Lymph # (Auto) (1.2-4.9) X10*3/uL Gillespie # (Auto) (0.1-1.2) X10*3/uL Eos # (Auto) (0.0-0.4) X10*3/uL Baso # (Auto) (0.0-0.2) X10*3/uL Abs Immat Gran (auto) (0.00-0.03) X10*3/uL Absolute Neuts (auto) (2.0-8.3) X10*3/uL Absolute Nucleated RBC (0.0-0.012) X10*3/uL Nucleated RBC % (auto) (0.0-0.2) /100WBC PT 13.7 H (10.8-13.0) SEC INR 1.2 H (0.9-1.1) Sodium (135-145) mmol/L Potassium (3.3-5.1) mmol/L Chloride (96-108) mmol/L Carbon Dioxide (22-29) mmol/L Anion Gap (12-20) BUN (9-16) mg/dL Creatinine (0.5-1.4) mg/dL Estim Creat Clear Calc Estimated GFR Random Glucose (60-115) mg/dL Lactic Acid 1.8 (0.5-2.0) mmol/L Calcium (8.4-10.2) mg/dL Magnesium (1.6-2.6) mg/dL Total Bilirubin (0.0-1.0) mg/dL Direct Bilirubin (0.0-0.5) mg/dL AST (5-37) U/L ALT (0-40) U/L Alkaline Phosphatase (39-117) U/L Total Creatine Kinase (38-174) U/L Troponin I High Sens (<3.5-35.0) ng/L Total Protein (6.5-8.0) g/dL Albumin (3.5-5.0) g/dL Urine Opiates Screen (Not Detect) Ur Barbiturates Screen (Not Detect) Ur Phencyclidine Scrn (Not Detect) Ur Amphetamines Screen (Not Detect) U Benzodiazepines Scrn (Not Detect) Urine Cocaine Screen (Not Detect) U Marijuana (THC) Screen (Not Detect) Ethyl Alcohol mg/dL COVID-19 (DARRYL) Negative (Negative) COVID-19 Clin Com See Note 12/21/20 12/21/20 12/21/20 Range/Units 17:57 17:57 17:57 WBC (4.8-10.8) X10*3/uL RBC (4.60-5.80) X10*6/uL Hgb (14.0-18.0) g/dl Hct (42-52) % MCV (80-98) fL MCH (27.0-33.0) pg MCHC (31.0-36.0) g/dl RDW (11.0-16.0) % Plt Count (160-400) X10*3/uL MPV (9.4-12.4) fL Immature Gran % (Auto) (0.0-0.4) % Neut % (Auto) (45-73) % Lymph % (Auto) (20-40) % Gillespie % (Auto) (2-11) % Eos % (Auto) (0-4) % Baso % (Auto) (0-2) % Lymph # (Auto) (1.2-4.9) X10*3/uL Gillespie # (Auto) (0.1-1.2) X10*3/uL Eos # (Auto) (0.0-0.4) X10*3/uL Baso # (Auto) (0.0-0.2) X10*3/uL Abs Immat Gran (auto) (0.00-0.03) X10*3/uL Absolute Neuts (auto) (2.0-8.3) X10*3/uL Absolute Nucleated RBC (0.0-0.012) X10*3/uL Nucleated RBC % (auto) (0.0-0.2) /100WBC PT (10.8-13.0) SEC INR (0.9-1.1) Sodium (135-145) mmol/L Potassium (3.3-5.1) mmol/L Chloride (96-108) mmol/L Carbon Dioxide (22-29) mmol/L Anion Gap (12-20) BUN (9-16) mg/dL Creatinine (0.5-1.4) mg/dL Estim Creat Clear Calc Estimated GFR Random Glucose (60-115) mg/dL Lactic Acid (0.5-2.0) mmol/L Calcium (8.4-10.2) mg/dL Magnesium (1.6-2.6) mg/dL Total Bilirubin (0.0-1.0) mg/dL Direct Bilirubin (0.0-0.5) mg/dL AST (5-37) U/L ALT (0-40) U/L Alkaline Phosphatase (39-117) U/L Total Creatine Kinase 254 H D (38-174) U/L Troponin I High Sens (<3.5-35.0) ng/L Total Protein (6.5-8.0) g/dL Albumin (3.5-5.0) g/dL Urine Opiates Screen Not Detected (Not Detect) Ur Barbiturates Screen Not Detected (Not Detect) Ur Phencyclidine Scrn Not Detected (Not Detect) Ur Amphetamines Screen Not Detected (Not Detect) U Benzodiazepines Scrn Not Detected (Not Detect) Urine Cocaine Screen Not Detected (Not Detect) U Marijuana (THC) Screen Not Detected (Not Detect) Ethyl Alcohol 407 H* mg/dL COVID-19 (DARRYL) (Negative) COVID-19 Clin Com Imaging Data Chest x-ray: Attestation: I personally reviewed and interpreted this imaging study as follows: Radiologist's impression: [address] [id number] ReportSigned Patient: Duarte Bailon DMR#: [id number]: 1985Acct:[id number]/Sex: 35 / MADM Date: 12/21/20Loc: [address]: Ordering Physician: SERAFIN CHANG NP Date of Service: 12/21/20 Procedure(s): XR chest 2V Accession Number(s): [id number] cc: BERNARDO,SERAFIN HOST/HOSTESS HEAD~ EXAMINATION: XR CHEST CLINICAL INFORMATION: Chest pain COMPARISON: Chest x-ray 05/12/2020 TECHNIQUE: 2 views of the chest were obtained. FINDINGS: Cardiac monitoring device over the left anterior chest. No significant abnormality is noted involving the heart, lungs, mediastinum, bony thorax or soft tissues. XR/XR chest 2V IMPRESSION: Unremarkable examination. ct head/neck: Attestation: I personally reviewed and interpreted this imaging study as follows: Radiologist's impression: 1. No acute intracranial pathology. 2. No CT evidence of acute cervical spine fracture or traumatic subluxation ECG Data Attestation: I personally reviewed and interpreted this ECG as follows: Interpretation: NSR with rate 82, normal pr, normal qrs, normal qtc Discharge Plan Discharge Clinical Impression: Alcohol intoxication Qualifiers: Complication of substance-induced condition: with unspecified complication Qualified Code(s): F10.929 - Alcohol use, unspecified with intoxication, unspecified Patient Disposition: Home, Self-Care Instructions: Abuse of Alcohol (ED) Additional Instructions: You were offered detox but you declined this. Do not try to detox at home. Prescriptions: No Action No Known Home Meds RF: 0 Referrals: [facility] [Primary Care Provider] - 2 days
[2020-12-21 18:09] LABS: MANUAL DIFF FLAG NO
[2020-12-21 18:11] LABS: Basophils Absolute Auto 0.1 X10*3/uL (0.0-0.2); Basophils Percent Auto 1.4 % (0-2); Eosinophils Percent Auto 0.7 % (0-4); Hematocrit 45.6 % (42-52); Hemoglobin 15.6 g/dl (14.0-18.0); Imm Gran Abs Auto 0.04 X10*3/uL (0.00-0.03); Imm Gran Pct Auto 0.9 % (0.0-0.4); Lymphocytes Absolute Auto 2.2 X10*3/uL (1.2-4.9); Lymphocytes Percent Auto 49.8 % (20-40); Mean Corpuscular HGB Conc 34.2 g/dl (31.0-36.0); Mean Corpuscular Hemoglobin 35.6 pg (27.0-33.0); Mean Corpuscular Volume 104.1 fL (80-98); Monocytes Absolute Auto 0.4 X10*3/uL (0.1-1.2); Monocytes Percent Auto 8.4 % (2-11); Neutrophils Absolute Auto 1.7 X10*3/uL (2.0-8.3); Neutrophils Percent Auto 38.8 % (45-73); Platelet Count 183 X10*3/uL (160-400); Red Blood Count 4.38 X10*6/uL (4.60-5.80); Red Cell Distribution Width 12.9 % (11.0-16.0); White Blood Count 4.4 X10*3/uL (4.8-10.8)
[2020-12-21 18:18] LABS: INTERNATIONAL NORM RATIO 1.2 (0.9-1.1); Prothrombin Time 13.7 SEC (10.8-13.0)
[2020-12-21 18:28] LABS: COVID-19 Test Negative (Negative); IDNOW Serial# 9DD0AD1C
[2020-12-21 18:31] LABS: Lactic Acid 1.8 mmol/L (0.5-2.0)
[2020-12-21 18:35] LABS: Ethanol 407 mg/dL
[2020-12-21 18:36] LABS: Alanine Aminotransferase 84 U/L (0-40); Albumin Level 4.3 g/dL (3.5-5.0); Alkaline Phosphatase 108 U/L (39-117); Anion Gap 15 (12-20); Aspartate Amino Transferase 95 U/L (5-37); Bilirubin Direct 0.3 mg/dL (0.0-0.5); Bilirubin Total 0.5 mg/dL (0.0-1.0); Blood Urea Nitrogen 11 mg/dL (9-16); Calcium 8.2 mg/dL (8.4-10.2); Carbon Dioxide 29 mmol/L (22-29); Chloride 107 mmol/L (96-108); Creatinine Clr Calc Pharmacy 127.2; Estimated Glomerular Filt Rate > 60; Glucose Random 125 mg/dL (60-115); Magnesium 2.3 mg/dL (1.6-2.6); Sodium 147 mmol/L (135-145); Total Protein 8.5 g/dL (6.5-8.0)
[2020-12-21 18:37] LABS: Amphetamine Screen Urine Not Detected (Not Detect); Barbiturates, Urine Not Detected (Not Detect); Benzodiazepines Screen Urine Not Detected (Not Detect); Cannabinoid Screen Urine Not Detected (Not Detect); Cocaine Screen Urine Not Detected (Not Detect); Opiate Screen Urine Not Detected (Not Detect); Phencyclidine Screen Urine Not Detected (Not Detect)
[2020-12-21 18:40] LABS: Troponin-I High Sensitivity 3.6 ng/L (<3.5-35.0)
[2020-12-21 18:43] VITALS: BP 133/88; PULSE 89; RESP 17; O2SAT 97
--- NOTE | 2020-12-21 19:15 | PC.NURSE ---
Patient currently does not want tylenol
[2020-12-22] VITALS: BP 101/66; PULSE 78; RESP 18; TEMP 36.9; O2SAT 96
[2020-12-22 03:55] VITALS: RESP 16
--- NOTE | 2020-12-22 05:01 | PC.NURSE ---
PT SLEEPING. TO GO HOME IN AM.
[2020-12-22 06:00] VITALS: BP 105/72; PULSE 70; RESP 16; TEMP 36.4; O2SAT 99
== END 2020-12-22 06:15 | disposition home or self-care (01) ==
PROVIDERS: Nurse Practitioner Family; Emergency Provider Internal Medicine
DX: F10.120 Alcohol abuse with intoxication, uncomplicated (principal); Y90.8 Blood alcohol level of 240 mg/100 ml or more; Z20.822 Contact with and (suspected) exposure to COVID-19; F17.210 Nicotine dependence, cigarettes, uncomplicated; F19.10 Other psychoactive substance abuse, uncomplicated
CPT/HCPCS: 36415; 70450; 71046; 72125; 80048; 80076; 80307; 80320; 82550; 83605; 83735; 84484; 85025; 85610; 87635; 93005; 99284

== ENCOUNTER 2020-12-22 13:51 | Emergency (ER) | payer MEDICAID, SELFPAY ==
[2020-12-22 14:07] VITALS: BP 138/92; BP 157/98; PULSE 110; PULSE 97; RESP 18; TEMP 36.6; O2SAT 96; O2SAT 98; BMI 25.0
--- NOTE | 2020-12-22 14:57 | ED.ALCOHOL ---
HPI - Alcohol General Chief Complaint: ETOH/Substance Use Stated Complaint: UNRESPONSIVE Time Seen by Provider: 12/22/20 14:57 Source: EMS Mode of arrival: EMS Limitations: no limitations History of Present Illness HPI narrative: 35-year-old male with history of alcohol abuse presenting via EMS with alcohol intoxication admits to drinking alcohol today. He was here last evening discharged early this morning for alcohol intoxication and there was a question of a seizure though probability was last had a workup that was negative. He re-presented is as friend called for EMS as he was sleeping outside their house. Patient wearing clean clothes, well-kempt otherwise. Strongly order EtOH. No evidence of trauma or injury. Denies any medical problems at this time. MD complaint: alcohol intoxication Last drink: Hours (ago) Chronic alcohol use: Yes Previous visits for alcohol intoxication: Yes Recent trauma: No Associated symptoms: denies other symptoms Treatments prior to arrival: none Related Data Home Medications Medication Instructions Recorded Confirmed No Known Home Meds 12/10/20 12/10/20 Allergies Allergy/AdvReac Type Severity Reaction Status Date / Time shellfish derived Allergy Unknown HIVES Verified 12/21/20 16:07 [SHELLFISH DERIVED] SEAFOOD Allergy Unknown UNKNOWN Uncoded 07/02/20 15:29 Review of Systems Review of Systems: Otherwise 12 point review of system is negative he answers no to everything. Yes all other systems are reviewed and are negative [facility] Past Medical History Medical History (Updated 12/22/20 @ 15:03 by Fransico Palma NP) Alcohol intoxication Asthma Seizure Syncope Surgical History History of mandibular surgery Family History Family History Maternal Grandfather Heart disease Mother Diabetes HTN (hypertension) Father Diabetes Social History Social History Alcohol intake: current Alcohol intake frequency: 3 or more drinks per day Alcohol type: hard liquor Smoking Status: Never smoker Cigarettes Per Day: 2 Years Smoked: 10 Substance Use Type: Crack/Cocaine Advance Directives: No Advance Directives Information Provided: No Physical Exam Vital Signs: Vital Signs: Last Vital Signs Temp 98 F 12/22/20 14:07 Pulse 97 12/22/20 14:07 Resp 18 12/22/20 14:07 BP 157/98 H 12/22/20 14:07 Pulse Ox 98 12/22/20 14:07 Body Mass Index 25.0 Reviewed Const: Other: Odor of EtOH General: intoxicated appearing; No acute distress Nutritional Appearance: average body habitus Orientation/consciousness: patient oriented x3 HENMT: Head: Yes normal to inspection Ears: hearing grossly normal bilaterally Eyes: General: appearance normal, both eyes and all related structures Visual Palomo: normal visual palomo by confrontation Neck: Neck: Yes normal visual inspection, No positive Brudzinski's sign, No positive Kernig's sign and No tender Thyroid: Thyroid normal Chest: Chest palpation & inspection: normal inspection of the chest Resp: Effort & Inspection: normal respiratory effort Auscultation: clear to auscultation bilaterally Cardio: Jugular venous distension: no JVD Rhythm: regular rhythm Heart sounds: S1 normal heart sound present and S2 normal heart sound present GI: Inspection: Yes normal to inspection Palpation (GI): Soft to palpation Percussion: Yes normal to percussion Auscultation: normal bowel sounds : General: Yes no CVA tenderness Back/Spine/Pelvis: Back: no CVA tenderness Skin: General skin exam: no rashes or lesions noted Neuro: General: patient oriented x3 Extrem: General: Yes normal to inspection Course Course Course Narrative: Offers no medical complaints upon arrival upset that he was transferred here would like to go home. No indication for any further medical workup at this time. Patient did ambulate with steady gait however I did request that he have somebody come pick him up and he states he will call his . Reevaluation(s) Reevaluation #1: His is unaware however he does not want to wait he is ambulatory with steady straight gait clinically sober. Denies any SI or HI. Refused to speak to anyone reg detox or services. Discharge Plan Discharge Clinical Impression: Alcoholic intoxication Patient Disposition: Home, Self-Care Instructions: Abuse of Alcohol (ED) Additional Instructions: Please stop drinking alcohol as this can cause serious harm to health and even Please go directly to detox Please return if any concerns or worsening symptoms I would also like for you to follow-up with her primary care doctor in the next 1 day Call berlin Nichols if he decided he wanted go to detox taking help you with this Thank you Prescriptions: No Action No Known Home Meds RF: 0 Referrals: [facility] [Primary Care Provider] - 1 day
--- NOTE | 2020-12-22 15:34 | PC.NURSE ---
provider at bedside, pt attempting to walk out, provider states pt is able to leave if he wants, did not wait for his d/c paperwork. pt ambulating with steady gait
== END 2020-12-22 15:36 | disposition home or self-care (01) ==
PROVIDERS: Emergency Provider Emergency Medicine Emergency Medical Services
DX: F10.120 Alcohol abuse with intoxication, uncomplicated (principal); Y90.9 Presence of alcohol in blood, level not specified
CPT/HCPCS: 99283

== ENCOUNTER 2020-12-28 18:13 | Emergency (ER) | payer MEDICAID, SELFPAY | END 2020-12-28 18:31 | disposition left against medical advice (07) | LOC: HO.ED 18:31 | PROVIDERS: Emergency Provider Emergency Medicine | DX: F10.920 Alcohol use, unspecified with intoxication, uncomplicated (principal) ==

== ENCOUNTER 2021-01-01 17:42 | Emergency (ER) | payer MEDICAID, SELFPAY ==
[2021-01-01 18:14] VITALS: BP 136/79; PULSE 102; RESP 16; TEMP 37.5; O2SAT 95; BMI 25.1
== END 2021-01-01 19:11 | disposition left against medical advice (07) ==
PROVIDERS: Emergency Provider Emergency Medicine
DX: R56.9 Unspecified convulsions (principal); R51.9 Headache, unspecified
CPT/HCPCS: 99281; 99282

== ENCOUNTER 2021-01-09 14:11 | Emergency (ER) | payer MEDICAID, SELFPAY ==
[2021-01-09 14:17] VITALS: BP 150/90; BP 150/95; PULSE 100; RESP 17; TEMP 36.6; O2SAT 99; BMI 25.0
--- NOTE | 2021-01-09 14:37 | PC.NURSE ---
FERNANDO WILL NOT BE PICKING PT UP.
[2021-01-09] MEDS: LORazepam 2 MG/ML VIAL IM (15:35)
--- NOTE | 2021-01-09 15:36 | PC.NURSE ---
sitter at bedside, pt agitated, restless.
--- NOTE | 2021-01-09 16:15 | ED_ITS ---
HPI - Alcohol General Chief Complaint: ETOH/Substance Use Stated Complaint: ETOH INTOXICATION Time Seen by Provider: 01/09/21 14:16 Source: patient and EMS Mode of arrival: EMS Limitations: other (Patient is so intoxicated unable to give history) History of Present Illness HPI narrative: 35-year-old male with a past medical history of seizure disorder, syncope, substance abuse, sinus pause with ILR place, RAND presenting to the ED via EMS for EtOH intoxication. Patient unable to give history although denies any recent trauma or any symptoms at this time. Requesting to go home to call his girlfriend Natasha to pick him up. Patient denies any SI/HI/auditory or visual hallucinations or thoughts of self injury. Reports he is not interested in detox. MD complaint: alcohol intoxication and alcohol dependence Chronic alcohol use: Yes Previous visits for alcohol intoxication: Yes Recent trauma: No Associated symptoms: denies other symptoms Treatments prior to arrival: none Related Data Home Medications Medication Instructions Recorded Confirmed No Known Home Meds 12/10/20 12/10/20 Allergies Allergy/AdvReac Type Severity Reaction Status Date / Time shellfish derived Allergy Unknown HIVES Verified 12/21/20 16:07 [SHELLFISH DERIVED] SEAFOOD Allergy Unknown UNKNOWN Uncoded 07/02/20 15:29 Review of Systems Review of Systems: Constitutional : No Fever, No Chills ENT/Mouth : No Ear Pain, No Nasal Congestion, No sore throat Eyes: No Eye Pain, No Swelling, No Redness Cardiovascular : No Chest Pain, No SOB Respiratory : No Cough, No Sputum, No Dyspnea Gastrointestinal : No ingestions, No Nausea, No Vomiting, No Diarrhea, No Hematochezia, No Melena Genitourinary : No Dysuria, No Urinary Frequency, No Hematuria Musculoskeletal : No Myalgias Skin : No Skin Lesions, No rash Neuro : No Weakness, No Numbness, No Paresthesias, No Dizziness, No Headache Psych : No Anxiety, No Depression, No SI/HI, No AVH, No thoughts of self injury Heme/Lymph: No Lymphadenopathy Endocrine : No Polyuria, No Polydipsia Yes all other systems are reviewed and are negative [facility] Past Medical History Attestation statement: The following information was validated with the patient. Medical History Alcohol intoxication Asthma Seizure Syncope Surgical History History of mandibular surgery Family History Family History Maternal Grandfather Heart disease Mother Diabetes HTN (hypertension) Father Diabetes Social History Social History Alcohol intake: current Alcohol intake frequency: 3 or more drinks per day Alcohol type: hard liquor Smoking Status: Never smoker Cigarettes Per Day: 2 Years Smoked: 10 Substance Use Type: Crack/Cocaine Advance Directives: No Advance Directives Information Provided: No Physical Exam Vital Signs: Vital Signs: Last Vital Signs Temp 98 F 01/09/21 14:17 Pulse 100 01/09/21 14:17 Resp 17 01/09/21 14:17 BP 150/90 H 01/09/21 14:17 Pulse Ox 99 01/09/21 14:17 Body Mass Index 25.0 vital signs have been reviewed as normal and appeared to be correct. Blood pressure hypertensive at 150/90. Heart rate normal. Respiration rate normal. Temperature normal. Oxygen saturation normal. Appearance: Alert. Oriented and intoxicated with EtOH on odor of breath. No acute distress. Head: Normal external exam. Normocephalic. Atraumatic. No Mcdaniels signs noted. No raccoon eyes noted Eyes: PERRLA. EOMI. Conjunctiva and sclera normal. Eyelids normal. ENT: EAC normal. TM's Normal. Pharynx normal. Uvula midline. Moist mucous membranes. No trismus noted. No drooling noted. No muffled voice noted. Neck: Normal inspection. Neck supple. FROM. No adenopathy. Thyroid Normal. No meningeal signs. No neck mass noted. CVS: Normal heart rate and rhythm. Heart sound normal. No murmurs noted. Pulses normal throughout. Respiratory: No respiratory distress. Painless inspiration. Breath sounds normal. No wheezes/rales/rhonchi noted. Chest nontender. No accessory muscle usage noted or decreased air movement noted. Abdomen: Soft and nontender. Bowel sounds normal in all 4 quadrants. No distention noted. No organomegaly noted. No visible injury noted. Back: No CVA tenderness. Full range of motion noted. Skin: Skin warm and dry. Normal skin color. Normal skin turgor. No rashes/lesions/lacerations noted. Extremities: No lower extremity edema. Extremities exhibit normal range of motion. Extremities nontender. Neuro: Oriented X 3. No motor deficit. No sensory deficit. Reflexes normal. Psych: Appearance disheveled, mental status normal, speech slurred, movement is normal. patient very anxious and intoxicated. Is cooperative. Does not have good thought process/thought content/insight or judgment. Course Course Course Narrative: 14:45pm - 35-year-old male with a past medical history of seizure disorder, syncope, substance abuse, sinus pause with ILR place, RAND presenting to the ED via EMS for EtOH intoxication. Patient unable to give history although denies any recent trauma or any symptoms at this time. Denies any SI/HI/auditory visual hallucinations thoughts of self-injury. Not interested in detox. - on exam patient is alert and anxious very intoxicated with EtOH on odor of breath. Otherwise not in any acute distress. Denies any complaints at this time. No focal neuro deficits are noted. No signs of trauma. Patient has a normal steady gait. Lungs CTA. CV RRR. Abdomen is soft and nontender. - patient is refusing labs at this time and his girlfriend Natasha we called her and she reports she is not coming to pick him up therefore we will medicate him with 2 mg of IM Ativan then re-evaluate. MDM - Alcohol Medical Records Attestation: I reviewed the patient's medical records. Discharge Plan Discharge Clinical Impression: Alcoholic intoxication Instructions: Abuse of Alcohol (ED), Alcohol Intoxication (ED), Alcohol Dependence (ED) Prescriptions: No Action No Known Home Meds RF: 0 Referrals: [facility] [Primary Care Provider] - 2 days Print Language: Bermudian
[2021-01-09 18:29] VITALS: BP 100/67; PULSE 76; RESP 14; TEMP 36.6; O2SAT 97
--- NOTE | 2021-01-09 19:18 | PC.NURSE ---
Patient got out of bed, approached this RN at the nurse's station, asking for a phone to call his . Pt re-directed back to bed, phone given. Sitter to be put in place due to flight risk. grading clerk (Memo Spann) aware.
[2021-01-09 19:24] VITALS: BP 115/74; PULSE 74; RESP 16; TEMP 36.6; O2SAT 100
== END 2021-01-09 20:47 | disposition home or self-care (01) ==
PROVIDERS: Emergency Provider Emergency Medicine
DX: F10.229 Alcohol dependence with intoxication, unspecified (principal); F14.90 Cocaine use, unspecified, uncomplicated; G47.33 Obstructive sleep apnea (adult) (pediatric); Y90.9 Presence of alcohol in blood, level not specified
CPT/HCPCS: 96372; 99284; J2060

== ENCOUNTER 2021-01-18 14:31 | Emergency (ER) | payer MEDICAID, SELFPAY ==
--- NOTE | 2021-01-18 14:48 | ED_ITS ---
HPI - Alcohol General Chief Complaint: ETOH/Substance Use <Fransico Palma NP - Last Filed: 01/18/21 14:57> Stated Complaint: ETTOH INTOXICATION <Fransico Palma NP - Last Filed: 01/18/21 14:57> Time Seen by Provider: 01/18/21 14:39 <Fransico Palma NP - Last Filed: 01/18/21 14:57> Source: EMS <Fransico Palma NP - Last Filed: 01/18/21 14:57> Mode of arrival: EMS <Fransico Palma NP - Last Filed: 01/18/21 14:57> Limitations: no limitations <Fransico Palma NP - Last Filed: 01/18/21 14:57> History of Present Illness HPI narrative: Flush found sleeping outside a liquor store. His history of alcohol abuse multiple visits for alcohol intoxication. No recent fall or injury. Is upset that he was brought here as he reports it was nice out and he drank liquor store and was sleeping on the grass next to her. Bystander called for him. He upon arrival offers no medical complaints. <Fransico Palma NP - Last Filed: 01/18/21 14:57> MD complaint: alcohol intoxication <Fransico Palma NP - Last Filed: 01/18/21 14:57> Last drink: Hours (ago) <Fransico Palma NP - Last Filed: 01/18/21 14:57> Chronic alcohol use: Yes <Fransico Palma NP - Last Filed: 01/18/21 14:57> Previous visits for alcohol intoxication: Yes <Fransico Palma NP - Last Filed: 01/18/21 14:57> Recent trauma: No <Fransico Palma NP - Last Filed: 01/18/21 14:57> Associated symptoms: denies other symptoms <Fransico Palma NP - Last Filed: 01/18/21 14:57> Treatments prior to arrival: none <Fransico Palma NP - Last Filed: 01/18/21 14:57> Related Data Home Medications: Home Medications Medication Instructions Recorded Confirmed No Known Home Meds 12/10/20 12/10/20 <Fransico Palma NP - Last Filed: 01/18/21 14:57> Allergies/Adverse Reactions: Allergies Allergy/AdvReac Type Severity Reaction Status Date / Time shellfish derived Allergy Unknown HIVES Verified 12/21/20 16:07 [SHELLFISH DERIVED] SEAFOOD Allergy Unknown UNKNOWN Uncoded 07/02/20 15:29 <Fransico Palma NP - Last Filed: 01/18/21 14:57> Review of Systems Review of Systems: Constitutional: No Weight loss, No Fever, No Chills, No Night Sweats, No Fatigue, No Malaise ENT/Mouth: No Hearing loss, No Ear Pain, No Nasal Congestion, No Sinus Pain, No Hoarseness, No sore throat, No Rhinorrhea, No Swallowing Difficulty Eyes: No Eye Pain, No Swelling, No Redness, No Foreign Body, No Discharge, No Vision Changes Cardiovascular: No Chest Pain, No SOB, No Dyspnea on Exertion, No Orthopnea, No Edema, No Palpitations Respiratory: No Cough, No Sputum, No Wheezing, No Smoke Exposure, No Dyspnea Gastrointestinal: No Nausea, No Vomiting, No Diarrhea, No Constipation, No abdominal Pain, No Hematochezia, No Melena Genitourinary: no irregular bleeding, No Dysuria, No Urinary Frequency, No Hematuria, No Urinary Incontinence, No Urgency, No Flank Pain, No Urinary Flow Changes, No Hesitancy Musculoskeletal: No joint pain, No Myalgias, No Joint Swelling Skin: No Skin Lesions, No rash Neuro: No Weakness, No Numbness, No Paresthesias, No Loss of Consciousness, No Dizziness, No Headache Psych: No Anxiety/Panic, No Depression, No SI/HI/AH/VH, No Social Issues Heme/Lymph: No Bruising, No Bleeding,No Lymphadenopathy Endocrine: No Polyuria, No Polydipsia, No Temperature Intolerance <Fransico Palma NP - Last Filed: 01/18/21 14:57> Yes all other systems are reviewed and are negative <Fransico Palma NP - Last Filed: 01/18/21 14:57> COUNT INCLUDES THE [facility] Past Medical History Medical History: Medical History Alcohol intoxication Asthma Seizure Syncope <Fransico Palma NP - Last Filed: 01/18/21 14:57> Surgical History: Surgical History History of mandibular surgery <Fransico Palma NP - Last Filed: 01/18/21 14:57> Family History Family History: Family History Maternal Grandfather Heart disease Mother Diabetes HTN (hypertension) Father Diabetes <Fransico Palma NP - Last Filed: 01/18/21 14:57> Social History Social History: Social History Alcohol intake: current Alcohol intake frequency: 3 or more drinks per day Alcohol type: hard liquor Smoking Status: Heavy tobacco smoker Cigarettes Per Day: 2 Years Smoked: 10 Use of substances other than those prescribed or required for medical reasons: Yes Substance Use Type: Unknown Advance Directives: No Advance Directives Information Provided: Yes <Fransico Palma NP - Last Filed: 01/18/21 14:57> Physical Exam Vital Signs: Vital Signs: Last Vital Signs Temp 98 F 01/18/21 14:56 Pulse 120 H 01/18/21 14:56 Resp 01/18/21 14:56 BP 143/99 H 01/18/21 14:56 Pulse Ox 98 01/18/21 14:56 Body Mass Index 23.5 Reviewed <Fransico Palma NP - Last Filed: 01/18/21 14:57> Vital Signs: Last Vital Signs Temp 98 F 01/18/21 14:56 Pulse 120 H 01/18/21 14:56 Resp 01/18/21 14:56 BP 143/99 H 01/18/21 14:56 Pulse Ox 98 01/18/21 14:56 Body Mass Index 23.5 <Abrahan Shelton MD - Last Filed: 02/02/21 07:35> Const: General: cooperative and healthy appearing; No acute distress or intoxicated appearing <Fransico Palma NP - Last Filed: 01/18/21 14:57> Nutritional Appearance: average body habitus <Fransico Palma NP - Last Filed: 01/18/21 14:57> Orientation/consciousness: patient oriented x3 <Fransico Palma NP - Last Filed: 01/18/21 14:57> HENMT: Head: Yes normal to inspection <Fransico Palma NP - Last Filed: 01/18/21 14:57> Ears: hearing grossly normal bilaterally <[facility] - Last Filed: 01/18/21 14:57> Eyes: General: appearance normal, both eyes and all related structures <[facility] Last Filed: 01/18/21 14:57> Visual Palomo: normal visual palomo by confrontation <[facility] Last Filed: 01/18/21 14:57> Neck: Neck: Yes normal visual inspection, No positive Brudzinski's sign, No positive Kernig's sign and No tender <[facility] - Last Filed: 01/18/21 14:57> Thyroid: Thyroid normal <[facility]ma - Last Filed: 01/18/21 14:57> Chest: Chest palpation & inspection: normal inspection of the chest <[facility] Last Filed: 01/18/21 14:57> Resp: Effort & Inspection: normal respiratory effort <[facility] Last Filed: 01/18/21 14:57> Auscultation: clear to auscultation bilaterally <[facility] Last Filed: 01/18/21 14:57> Cardio: Jugular venous distension: no JVD <[facility] Last Filed: 01/18/21 14:57> Rhythm: regular rhythm <[facility] Last Filed: 01/18/21 14:57> Heart sounds: S1 normal heart sound present and S2 normal heart sound present <[facility] - Last Filed: 01/18/21 14:57> GI: Inspection: Yes normal to inspection <[facility] - Last Filed: 01/18/21 14:57> Palpation (GI): Soft to palpation <[facility], - Last Filed: 01/18/21 14:57> Percussion: Yes normal to percussion <[facility] - Last Filed: 01/18/21 14:57> Auscultation: normal bowel sounds <[facility] - Last Filed: 01/18/21 14:57> : General: Yes no CVA tenderness <Fransicoemilie Palma NP - Last Filed: 01/18/21 14:57> Back/Spine/Pelvis: Back: no CVA tenderness <Fransico Palma NP - Last Filed: 01/18/21 14:57> Skin: General skin exam: no rashes or lesions noted <Fransico Palma NP - Last Filed: 01/18/21 14:57> Neuro: General: patient oriented x3 <Fransico Palma NP - Last Filed: 01/18/21 14:57> Extrem: General: Yes normal to inspection <Fransico Palma NP - Last Filed: 01/18/21 14:57> Course Course Course Narrative: Admits to alcohol use on a regular basis. Admits to drinking today prior to coming here. Upon arrival walking with steady gait doing pushups. Clinicall y sober. Had me call his girlfriend Natasha to get more I would she does not want to do this and does not want be associated with him. He has his own place he stays at. He wants to be discharged. He denies any medical complaints no SI or HI. Patient at this time clinically sober will be discharge he declined on detox services/speaking with substance abuse counselor here whom I told him are readily available to help him. <Fransico Palma NP - Last Filed: 01/18/21 14:57> I have reviewed the chart <Abrahan Shelton MD - Last Filed: 02/02/21 07:35> Discharge Plan Discharge Clinical Impression: Alcohol intoxication <Fransico Palma NP - Last Filed: 01/18/21 14:57> Patient Disposition: Home, Self-Care <Fransico Palma NP - Last Filed: 01/18/21 14:57> Additional Instructions: Patient eloped prior to getting discharge <Fransico Palma NP - Last Filed: 01/18/21 14:57> Prescriptions: No Action No Known Home Meds RF: 0 <Fransico Palma NP - Last Filed: 01/18/21 14:57> Referrals: Physician,Unknown [Primary Care Provider] - 1 day <Fransico Palma NP - Last Filed: 01/18/21 14:57> Interventions: ED Discharge Assessment Last Done: 01/18/21 15:00 <Fransico Palma NP - Last Filed: 01/18/21 14:57> Discharge Date/Time: 01/18/21 15:01 <Fransico Palma NP - Last Filed: 01/18/21 14:57>
[2021-01-18 14:56] VITALS: BP 143/100; BP 143/99; PULSE 116; PULSE 120; RESP 20; TEMP 36.6; O2SAT 95; O2SAT 98; BMI 23.5
== END 2021-01-18 15:01 | disposition home or self-care (01) ==
PROVIDERS: Emergency Provider Emergency Medicine
DX: F10.120 Alcohol abuse with intoxication, uncomplicated (principal); Y90.9 Presence of alcohol in blood, level not specified; F17.210 Nicotine dependence, cigarettes, uncomplicated
CPT/HCPCS: 99283

== ENCOUNTER 2021-01-18 17:12 | Emergency (ER) | payer MEDICAID, SELFPAY ==
--- NOTE | ~2021-01-18 | CT_ITS ---
EXAM: Noncontrast CT scan of the head and cervical spine. INDICATION: Fall. EtOH COMPARISON: CT head/cervical spine 12/21/2020 TECHNIQUE: Axial slices were obtained from skull base to vertex and displayed. This was followed by helical, multislice, multidetector axial images from the occiput to the upper thorax. Coronal and sagittal reformats of the cervical spine in addition to coronal reformats of the head were obtained at the technologist workstation. Today's examination is limited secondary to motion artifact. DLP: 1243 mGy-cm FINDINGS: HEAD: There is no evidence of acute intracranial hemorrhage or territorial infarction. No abnormal mass effect or midline shift is appreciated. Sena-white differentiation is well preserved. No extra-axial fluid collections. The ventricular system and cortical sulci are normal in size for age. 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 The osseous structures and soft tissues are normal. The visualized paranasal sinuses and mastoid air cells are well aerated. SPINE: Normal alignment. Vertebral body heights and disc spaces are well-maintained. No prevertebral soft tissue swelling. No appreciable degenerative changes. Visualized lung apices are well aerated. Visualized portion of the superior mediastinum are unremarkable. Small suspected sebaceous cyst of the left posterior neck, stable. CT/CT cervical spine wo con IMPRESSION: 1. No acute intracranial pathology. 2. No fractures or dislocations of the cervical spine. This CT examination was performed using dose optimization techniques as appropriate, variously including the following: *Automated exposure control *Adjustment of mA and/or kV according to patient size (this includes techniques or standardized protocols for targeted exams where dose is matched to indication/reason for exam; i.e. extremities or head) *Use of iterative reconstruction technique
[2021-01-18 17:33] VITALS: PULSE 102; RESP 16; BMI 23.5
--- NOTE | 2021-01-18 18:23 | PC.NURSE ---
pt refused inticial vs. i just want to sleep. Leave me alone .
[2021-01-18 20:00] VITALS: BP 125/70; PULSE 85; RESP 16; TEMP 36.4; O2SAT 96
--- NOTE | 2021-01-18 20:26 | ED_ITS ---
HPI - Alcohol General Chief Complaint: ETOH/Substance Use Stated Complaint: etoh Time Seen by Provider: 01/18/21 17:39 Source: EMS Mode of arrival: EMS Limitations: no limitations History of Present Illness HPI narrative: Patient history of alcohol abuse was seen here earlier in the day picked up after sleeping outside a liquor store he was observed here and discharged he subsequently went back to same liquor store and was found intoxicated and sleeping outside the same liquor store in the same area. This time there was a question whether he fell or not. Patient upon arrival has atraumatic exam appears to be heavily intoxicated with odor of ETOH. Speech slightly slurred, strong odor of EtOH. MD complaint: alcohol intoxication Last drink: Hours (ago) Chronic alcohol use: Yes Previous visits for alcohol intoxication: Yes Recent trauma: Yes (Possibly fall) Associated symptoms: denies other symptoms Treatments prior to arrival: none Related Data Home Medications Medication Instructions Recorded Confirmed No Known Home Meds 12/10/20 12/10/20 Allergies Allergy/AdvReac Type Severity Reaction Status Date / Time shellfish derived Allergy Unknown HIVES Verified 12/21/20 16:07 [SHELLFISH DERIVED] SEAFOOD Allergy Unknown UNKNOWN Uncoded 07/02/20 15:29 Review of Systems Review of Systems: Yes Unobtainable due to mental condition (Intoxication) [facility] Past Medical History Source: unable to obtain Medical History Alcohol intoxication Asthma Seizure Syncope Surgical History History of mandibular surgery Family History Family History Maternal Grandfather Heart disease Mother Diabetes HTN (hypertension) Father Diabetes Social History Social History Alcohol intake: current Alcohol intake frequency: 3 or more drinks per day Alcohol type: hard liquor Smoking Status: Heavy tobacco smoker Cigarettes Per Day: 2 Years Smoked: 10 Use of substances other than those prescribed or required for medical reasons: Yes Substance Use Type: Unknown Advance Directives: No Advance Directives Information Provided: Yes Physical Exam Vital Signs: Vital Signs: Last Vital Signs Temp 97.6 F 01/18/21 20:00 Pulse 85 01/18/21 20:00 Resp 16 01/18/21 20:00 BP 125/70 01/18/21 20:00 Pulse Ox 96 01/18/21 20:00 Body Mass Index 23.5 Reviewed Const: Other: Strong odor of EtOH General: cooperative; No acute distress or intoxicated appearing Nutritional Appearance: average body habitus Orientation/consciousness: patient oriented x3 HENMT: Head: Yes normal to inspection Ears: hearing grossly normal bilaterally Eyes: General: appearance normal, both eyes and all related structures Visual Palomo: normal visual palomo by confrontation Neck: Neck: Yes normal visual inspection, No positive Brudzinski's sign, No positive Kernig's sign and No tender Thyroid: Thyroid normal Chest: Chest palpation & inspection: normal inspection of the chest Resp: Effort & Inspection: normal respiratory effort Auscultation: clear to auscultation bilaterally Cardio: Jugular venous distension: no JVD Rhythm: regular rhythm Heart sounds: S1 normal heart sound present and S2 normal heart sound present GI: Inspection: Yes normal to inspection Palpation (GI): Soft to palpation Percussion: Yes normal to percussion Auscultation: normal bowel sounds : General: Yes no CVA tenderness Back/Spine/Pelvis: Back: no CVA tenderness Skin: General skin exam: no rashes or lesions noted Neuro: General: patient oriented x3 Extrem: General: Yes normal to inspection Psych: Appearance: disheveled Course Reevaluation(s) Reevaluation #1: Clinically intoxicated admits to alcohol use, multiple similar presentations there is a question whether he fell and hit his head but exam is atraumatic does have some grass clippings and he is here. Will get head and neck CT offers no other complaints. Will observe and offered detox. Reevaluation #2: 2109 Imaging negative. Patient has been resting comfortably without complaints. VSS, NAD, PWD. No signs or symptoms of withdrawal. Did get a briefly to eat and went back to sleep. Patient at this time requires more time for sobriety sign out to night team. At this time placed on physician observation for monitoring. MDM - Alcohol Medical Records Attestation: I reviewed the patient's medical records. Lab Data Attestation: I reviewed the patient's lab results. Imaging Data Head/cervical CT: Radiologist's impression: Duarte Bailon 35 M [address], [place] [address]KX Scan ReportSigned Patient: Duarte Bailon DMR#: [id number]: 1985Acct:[id number]/Sex: 35 / MADM Date: 01/18/21Loc: EDAttending Dr: Ordering Physician: Fransico Palma NP Date of Service: 01/18/21 Procedure(s): CT cervical spine wo con Accession Number(s): [id number] cc: Fransico Palma [employer]~ EXAM: Noncontrast CT scan of the head and cervical spine. INDICATION: Fall. EtOH COMPARISON: CT head/cervical spine 12/21/2020 TECHNIQUE: Axial slices were obtained from skull base to vertex and displayed. This was followed by helical, multislice, multidetector axial images from the occiput to the upper thorax. Coronal and sagittal reformats of the cervical spine in addition to coronal reformats of the head were obtained at the technologist workstation. Today's examination is limited secondary to motion artifact. DLP: 1243 mGy-cm FINDINGS: HEAD: There is no evidence of acute intracranial hemorrhage or territorial infarction. No abnormal mass effect or midline shift is appreciated. Sena-white differentiation is well preserved. No extra-axial fluid collections. The ventricular system and cortical sulci are normal in size for age. 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 The osseous structures and soft tissues are normal. The visualized paranasal sinuses and mastoid air cells are well aerated. SPINE: Normal alignment. Vertebral body heights and disc spaces are well-maintained. No prevertebral soft tissue swelling. No appreciable degenerative changes. Visualized lung apices are well aerated. Visualized portion of the superior mediastinum are unremarkable. Small suspected sebaceous cyst of the left posterior neck, stable. CT/CT cervical spine wo con IMPRESSION: 1. No acute intracranial pathology. 2. No fractures or dislocations of the cervical spine. This CT examination was performed using dose optimization techniques as appropriate, variously including the following: *Automated exposure control *Adjustment of mA and/or kV according to patient size (this includes techniques or standardized protocols for targeted exams where dose is matched to indication/reason for exam; i.e. extremities or head) *Use of iterative reconstruction technique Dictated By:JAYLEN COLINDRES MDSigned By:<Electronically signed by JAYLEN COLINDRES MD in OV>01/18/21 1849 DD/ 1739TD/TT: Social Media Director: PD Discharge Plan Discharge Clinical Impression: Alcohol intoxication Patient Disposition: Home, Self-Care Instructions: Abuse of Alcohol (ED), Alcohol Intoxication (ED) Additional Instructions: Please stop drinking alcohol Please go directly to detox Drink alcohol on a regular basis can result in serious harm to health including but not limited to Follow up with primary care Follow up with her for follow-up Return if any concerns worsening symptoms Thank you Prescriptions: No Action No Known Home Meds RF: 0 Referrals: Physician,Unknown [Primary Care Provider] - 2 days
--- NOTE | 2021-01-18 21:12 | MHC.RECOVSUP ---
Recovery support o Current location: [address] Identified substance use concern: ETOH/Substance Use <del>-</del> <del>Overdose</del> <del>-</del> <del>Withdrawal</del> <del>-</del> <del>Seeking</del> <del>ATS</del> <del>(detox)</del> <del>-</del> <del>Support</del> ? Intervention: <del>o</del> <del>ATS</del> <del>bed</del> <del>search</del> <del>started/completed/in</del> <del>process</del> <del>o</del> <del>MAT</del> <del>started</del> <del>or</del> <del>to</del> <del>be</del> <del>started</del> <del>o</del> <del>Community</del> <del>resources</del> <del>provided</del> <del>o</del> <del>Harm</del> <del>reduction</del> <del>discussion</del> ? Plan: <del>o</del> <del>Referral</del> <del>to</del> <del>[facility]</del> <del>o</del> <del>Bed</del> <del>search</del> <del>in</del> <del>progress</del> <del>to</del> <del>o</del> <del>Follow</del> <del>up</del> <del>tomorrow</del> <del>o</del> <del>Patient</del> <del>awaiting</del> <del>crisis</del> <del>evaluation</del> <del>o</del> <del>Patient</del> <del>to</del> <del>follow</del> <del>up</del> <del>with</del> <del>[facility]</del> <del>after</del> <del>discharge</del> ? Additional information: I made several attempts to speak with pt but all attempts were met with I want to sleep. I was not able to gather any information.
[2021-01-19 02:00] VITALS: RESP 16
== END 2021-01-19 03:10 | disposition home or self-care (01) ==
PROVIDERS: Emergency Provider Internal Medicine
DX: F10.120 Alcohol abuse with intoxication, uncomplicated (principal); Y90.9 Presence of alcohol in blood, level not specified; F17.210 Nicotine dependence, cigarettes, uncomplicated
CPT/HCPCS: 70450; 72125; 99285

== ENCOUNTER 2021-03-02 07:35 | Outpatient (REF) | payer MEDICAID, SELFPAY | END 2021-03-02 07:36 | disposition home or self-care (01) | LOC: HO.LAB 07:35 | PROVIDERS: Visit Provider Internal Medicine | DX: Z20.822 Contact with and (suspected) exposure to COVID-19 (principal) | CPT/HCPCS: C9803; U0003; U0005 ==

== ENCOUNTER 2021-05-21 17:00 | Emergency (ER) | payer MEDICAID, SELFPAY ==
--- NOTE | ~2021-05-21 | CT_ITS ---
EXAMINATION: CT HEAD W/O IV CONTRAST CT CERVICAL SPINE W/O IV CONTRAST CLINICAL INFORMATION: Fall COMPARISON: 01/18/2021 TECHNIQUE: Head - Contiguous axial imaging of the head was performed from the skull base to the vertex without the administration of intravenous contrast, and axial images are reconstructed at 2 mm and 5 mm slice thickness. Cervical spine - A volumetric, helical CT acquisition of the cervical spine was obtained without contrast; in addition to the standard set of axial images, multiplanar reformatted images were provided in the coronal and sagittal imaging planes. This CT examination was performed using dose optimization techniques as appropriate, variously including the following: *Automated exposure control *Adjustment of mA and/or kV according to patient size (this includes techniques or standardized protocols for targeted exams where dose is matched to indication/reason for exam; i.e. extremities or head) *Use of iterative reconstruction technique DLP: 1116 mGy-cm (total) FINDINGS: HEAD: No intracranial hemorrhage, acute major vascular territory infarction, focal mass effect or midline shift. There is an area of chronic encephalomalacia of the right frontal lobe. Otherwise, the thomson to white matter differentiation is preserved. Chronic, mild volume loss of brain parenchyma with commensurate prominence of the ventricles and sulci. No hydrocephalus. The calvarium is intact and the visualized paranasal sinuses, mastoid air cells and middle ear cavities are clear. The temporomandibular joints are unremarkable. The visualized orbits and globes are intact. CERVICAL SPINE: The cervical spine has normal curvature. No acute abnormalities. The craniocervical junction is normal. The occipital condyles, dens and atlantodental articulation are intact. The vertebral body heights and alignment are maintained. No fractures in the anterior or posterior elements. No prevertebral soft tissue swelling. The disc spaces are preserved. The facet joints and uncovertebral joints are unremarkable. No evidence of stenosis of the central spinal canal or neural foramina. No spinal hematoma in the visualized neck. Stable 0.9 x 1.3 cm structure in subcutaneous tissues of the left neck is consistent with epidermal inclusion cyst. 0.6 cm hypodense nodule (possible colloid cyst, of the inferior left thyroid lobe is unchanged. No evidence of a clinically significant nodule. No thyroid imaging follow-up is recommended. The visualized upper lobes are unremarkable. CT/CT cervical spine wo con IMPRESSION: * No hemorrhage or other acute intracranial pathology compared to 01/18/2021. * There is a focus of chronic encephalomalacia in the right frontal lobe. * No fracture or malalignment in the cervical spine.
--- NOTE | 2021-05-21 17:19 | ECG_ITS ---
Test Reason : ETOH Blood Pressure : / mmHG Vent. Rate : 078 BPM Atrial Rate : 078 BPM P-R Int : 172 ms QRS Dur : 086 ms QT Int : 370 ms P-R-T Axes : 026 038 051 degrees QTc Int : 421 ms Normal sinus rhythm ST elevation, consider early repolarization Borderline ECG When compared with ECG of 21-DEC-2020 19:28, No significant change was found Referred By: Kayleigh Partida Electronically Signed By:Alistair Arcos
[2021-05-21 17:20] VITALS: BP 126/84; PULSE 84; RESP 20; TEMP 36.8; O2SAT 96; BMI 25.8
--- NOTE | 2021-05-21 17:20 | ED_ITS ---
HPI - Fall General Chief Complaint: ETOH/Substance Use Stated Complaint: ? HEAD INJURY, ETOH Time Seen by Provider: 05/21/21 17:19 Source: patient and EMS Mode of arrival: EMS Limitations: other (ETOH abuse) History of Present Illness HPI Narrative: found down on sidewalk after drinking ETOH - initially refused transport but agreed to get checked out, states he drank today complaint: fall Onset (ago): minute(s) Fall from: standing Fall witnessed: no Place fall occurred: street Loss of consciousness: unsure Prolonged down time: no Symptoms prior to fall: none Context: alcohol use Associated symptoms (after fall): denies Related Data Home Medications Medication Instructions Recorded Confirmed No Known Home Meds 12/10/20 12/10/20 Allergies Allergy/AdvReac Type Severity Reaction Status Date / Time shellfish derived Allergy Unknown HIVES Verified 12/21/20 16:07 [SHELLFISH DERIVED] SEAFOOD Allergy Unknown UNKNOWN Uncoded 07/02/20 15:29 Review of Systems Review of Systems: ROS unable to be obtained due to ETOH and unsure of events PMFSH Past Medical History Medical History Alcohol intoxication Asthma Seizure Syncope Surgical History History of mandibular surgery Family History Family History Maternal Grandfather Heart disease Mother Diabetes HTN (hypertension) Father Diabetes Social History Social History Alcohol intake: current Alcohol intake frequency: 3 or more drinks per day Alcohol type: hard liquor Cigarettes Per Day: 2 Years Smoked: 10 Substance Use Type: Unknown Advance Directives: No Advance Directives Information Provided: No Physical Exam 2 Vital Signs: Vital Signs: Last Vital Signs Temp 98.2 F 05/21/21 17:20 Pulse 93 05/21/21 19:40 Resp 18 05/21/21 19:40 BP 137/100 H 05/21/21 19:40 Pulse Ox 98 05/21/21 19:40 Body Mass Index 25.8 Appearance: Alert. Oriented X2. No acute distress. Eyes: Pupils equal, round and reactive to light. ENT: Pharynx normal. Grass in hair Neck: Normal inspection. Neck supple. CVS: Normal heart rate and rhythm. Pulses normal. Respiratory: No respiratory distress. Breath sounds normal. Abdomen: Soft and nontender. Skin: Skin warm and dry. Normal skin color. Normal skin turgor. Extremities: No lower extremity edema. No calf ttp R gordon anterior superficial abrasion Neuro: Oriented X 2. No motor deficit. No sensory deficit. Course Course Course Narrative: negative trauma images, VS stable GCS 15 stable for DC, steady gait MDM - Fall MDM Narrative Medical decision making narrative: 35 yo male with hx of ETOH abuse, seizure disorder, asymptomatic sinus pauses with loop recorder comes in after drinking today initially refused transport now agrees to CT head/cspine and EKG he is adamant he does not want care, attempting to persuade him to stay, no obvious trauma other than abrasion to R gordon ECG Data Attestation: I personally reviewed and interpreted this ECG as follows: ECG interpretation date: 05/21/21 ECG interpretation time: 17:40 Interpretation: Rate: 78 Rhythm: NSR [place]: left Normal P waves. Normal EMILIA. Normal QRS complex. ST T wave : early repolarization diffusely qTC: normal prior studies: no acute ischemia The study has been interpreted contemporaneously by me. . Discharge Plan Discharge Clinical Impression: Alcoholic intoxication Patient Disposition: Home, Self-Care Instructions: Alcohol Intoxication (ED) Additional Instructions: return to ED for any worsening symptoms or concerns Prescriptions: No Action No Known Home Meds RF: 0 Interventions: ED Discharge Assessment Last Done: 05/21/21 19:47 Discharge Date/Time: 05/21/21 19:48
--- NOTE | 2021-05-21 19:36 | PC.NURSE ---
client refusing to wake up, clients spouse who is primary emergency contact refused to pick client up and did not offer any other phone numbers.
--- NOTE | 2021-05-21 19:38 | PC.NURSE ---
client shin x 3 walking with steaqdy gait requesting to go home. vitals wnl.
[2021-05-21 19:40] VITALS: BP 137/100; PULSE 93; RESP 18; O2SAT 98
== END 2021-05-21 19:48 | disposition home or self-care (01) ==
PROVIDERS: Emergency Provider Emergency Medicine; PCP Internal Medicine
DX: F10.10 Alcohol abuse, uncomplicated (principal); Y90.9 Presence of alcohol in blood, level not specified; Z91.81 History of falling
CPT/HCPCS: 70450; 72125; 93005; 99284

== ENCOUNTER 2021-05-22 18:47 | Emergency (ER) | payer MEDICAID, SELFPAY ==
[2021-05-22 19:10] VITALS: BP 123/74; PULSE 114; PULSE 89; RESP 16; TEMP 37; O2SAT 93; O2SAT 98; BMI 25.8
--- NOTE | 2021-05-22 19:22 | ED_ITS ---
HPI - Alcohol General Chief Complaint: ETOH/Substance Use Stated Complaint: etoh Time Seen by Provider: 05/22/21 19:17 Source: patient Mode of arrival: EMS Limitations: no limitations History of Present Illness HPI narrative: Patient came in intoxicated without any significant complaints slipping on arrival refused to answer most questions complaint: alcohol intoxication Related Data Home Medications Medication Instructions Recorded Confirmed No Known Home Meds 12/10/20 12/10/20 Allergies Allergy/AdvReac Type Severity Reaction Status Date / Time shellfish derived Allergy Unknown HIVES Verified 12/21/20 16:07 [SHELLFISH DERIVED] SEAFOOD Allergy Unknown UNKNOWN Uncoded 07/02/20 15:29 Review of Systems Review of Systems: Yes Unobtainable due to mental status (Intoxicated) [facility] Past Medical History Medical History Alcohol intoxication Asthma Seizure Syncope Surgical History History of mandibular surgery Family History Family History Maternal Grandfather Heart disease Mother Diabetes HTN (hypertension) Father Diabetes Social History Social History Alcohol intake: current Alcohol intake frequency: 3 or more drinks per day Alcohol type: beer, wine and hard liquor Patient Tobacco Use Status: Never used Tobacco Cigarettes Per Day: 2 Years Smoked: 10 Use of substances other than those prescribed or required for medical reasons: Unknown Substance Use Type: Unknown Advance Directives: No Advance Directives Information Provided: No Physical Exam Vital Signs: Vital Signs: Last Vital Signs Temp 98.6 F 05/22/21 19:10 Pulse 89 05/22/21 19:10 Resp 16 05/22/21 19:10 BP 123/74 05/22/21 19:10 Pulse Ox 93 05/22/21 19:10 Body Mass Index 25.8 Const: General: comfortable, no acute distress and intoxicated appearing HENMT: Head: Yes normocephalic and Yes atraumatic Ears: hearing grossly normal bilaterally Mouth: Normal oral and palatal mucosa present Eyes: General: appearance normal, both eyes and all related structures Neck: Neck: Yes normal visual inspection and Yes full ROM Chest: Chest palpation & inspection: normal inspection of the chest and normal palpation of entire chest wall Resp: Effort & Inspection: normal respiratory effort Auscultation: clear to auscultation bilaterally Cardio: Palpation: normal PMI Rate: regular rate Rhythm: regular rhythm Heart sounds: S1 normal heart sound present and S2 normal heart sound present Peripheral pulses: Peripheral pulses 2+ throughout GI: Inspection: Yes normal to inspection Palpation (GI): Soft to palpation Auscultation: normal bowel sounds Back/Spine/Pelvis: Cervical Spine: cervical ROM normal Thoracic/Lumbar Spine: No thoracic spinal tenderness and No lumbar spinal tenderness Skin: General skin exam: no rashes or lesions noted Neuro: Other: Intoxicated General: no focal motor deficits MDM - Alcohol MDM Narrative Medical decision making narrative: Patient came intoxicated, got up and start walking in the ER and eloped while walking he was in steady gait Differential Diagnosis Differential diagnosis: Likely alcohol dependence Discharge Plan Discharge Clinical Impression: Alcoholic intoxication Qualifiers: Complication of substance-induced condition: uncomplicated Qualified Code(s): F10.920 - Alcohol use, unspecified with intoxication, uncomplicated Patient Disposition: Elopement Prescriptions: No Action No Known Home Meds RF: 0 Discharge Date/Time: 05/22/21 21:53
--- NOTE | 2021-05-22 21:36 | PC.NURSE ---
PATIENT SEEN AMBULATING STEADILY, NO DISTRESS, WALKING PAST STAFF, STATING HE IS GOING HOME. FAMILY HAS BEEN CONTACTED FOR A RIDE HOME. PATIENT SAID THEY WILL GO AND WAIT FOR THEM OUTSIDE. MD IS AWARE PATIENT ELOPED FROM DEPARTMENT.
== END 2021-05-22 21:53 | disposition left against medical advice (07) ==
LOC: HO.ED 19:23
PROVIDERS: Emergency Provider Internal Medicine
DX: F10.920 Alcohol use, unspecified with intoxication, uncomplicated (principal); Y90.9 Presence of alcohol in blood, level not specified
CPT/HCPCS: 99283; 99284

== ENCOUNTER 2021-06-28 21:15 | Emergency (ER) | payer MEDICAID, SELFPAY ==
[2021-06-28 21:22] VITALS: BP 151/101; PULSE 94; RESP 16; TEMP 37.3; O2SAT 97; BMI 25.1
--- NOTE | 2021-06-28 21:24 | ED.ALCOHOL ---
HPI - Alcohol General Chief Complaint: Psychiatric Symptoms Stated Complaint: crisis etoh Time Seen by Provider: 06/28/21 21:24 Source: patient Mode of arrival: EMS History of Present Illness HPI narrative: this is 36 yo pt presented to the Ed via ambulance c/o Depression/SI. complaint: alcohol intoxication Last drink: Days (ago) Chronic alcohol use: Yes Associated symptoms: denies other symptoms Related Data Home Medications Medication Instructions Recorded Confirmed No Known Home Meds 12/10/20 12/10/20 Allergies Allergy/AdvReac Type Severity Reaction Status Date / Time shellfish derived Allergy Unknown HIVES Verified 12/21/20 16:07 [SHELLFISH DERIVED] SEAFOOD Allergy Unknown UNKNOWN Uncoded 07/02/20 15:29 Review of Systems Review of Systems: Yes all other systems are reviewed and are negative Constitutional: Constitutional: Reports no additional constitutional complaints ENT: Reports system reviewed and no additional complaints, except as documented Respiratory: Respiratory: Reports no additional respiratory complaints and Reports no additional respiratory complaints Gastrointestinal: Gastrointestinal: Reports no additional gastrointestinal complaints Neurologic: Reports system reviewed and no additional complaints, except as documented [facility] Past Medical History Medical History Alcohol intoxication Asthma Seizure Syncope Surgical History History of mandibular surgery Family History Family History Maternal Grandfather Heart disease Mother Diabetes HTN (hypertension) Father Diabetes Social History Social History Alcohol intake: current Alcohol intake frequency: 3 or more drinks per day Alcohol type: beer, wine and hard liquor Patient Tobacco Use Status: Never used Tobacco Cigarettes Per Day: 2 Years Smoked: 10 Substance Use Type: Unknown Advance Directives: No Advance Directives Information Provided: Yes Physical Exam Vital Signs: Vital Signs: Last Vital Signs Temp 99.2 F 06/28/21 21: Pulse 94 06/28/21 21:22 Resp 16 06/28/21 21:22 BP 151/101 H 06/28/21 21:22 Pulse Ox 97 06/28/21 21:22 Body Mass Index 25.1 Const: General: cooperative Orientation/consciousness: oriented to person, oriented to place, oriented to time and patient oriented x3 HENMT: Head: Yes normal to inspection Face and sinus: Yes normal facial exam Mouth: Normal oral and palatal mucosa present Throat: Yes posterior oropharynx normal Neck: Neck: Yes normal visual inspection and Yes full ROM Thyroid: Thyroid normal Chest: Chest palpation & inspection: normal inspection of the chest Resp: Effort & Inspection: normal respiratory effort and able to speak in complete sentences Auscultation: clear to auscultation bilaterally Cardio: Jugular venous distension: no JVD Rate: regular rate Rhythm: regular rhythm GI: Inspection: Yes normal to inspection Percussion: Yes normal to percussion Auscultation: normal bowel sounds Neuro: General: oriented to person, oriented to place, oriented to time and patient oriented x3 Cognition (Neuro): normal cognition MDM - Alcohol MDM Narrative Medical decision making narrative: Alcohol level noted,anticipate observation and reevaluation when clinically sober,he can not be evaluated by crisis at this time because intoxicated. 'Pt will be signed off to Dr Elliott Lab Data Result diagrams: 06/28/21 22:08 06/28/21 22:08 Labs: Lab Results 06/28/21 06/28/21 06/28/21 Range/Units 21:50 21:50 22:08 WBC (4.8-10.8) X10*3/uL RBC (4.60-5.80) X10*6/uL Hgb (14.0-18.0) g/dl Hct (42-52) % MCV (80-98) fL MCH (27.0-33.0) pg MCHC (31.0-36.0) g/dl RDW (11.0-16.0) % Plt Count (160-400) X10*3/uL MPV (9.4-12.4) fL Immature Gran % (Auto) (0.0-0.4) % Neut % (Auto) (45-73) % Lymph % (Auto) (20-40) % [place] % (Auto) (2-11) % Eos % (Auto) (0-4) % Baso % (Auto) (0-2) % Lymph # (Auto) (1.2-4.9) X10*3/uL [place] # (Auto) (0.1-1.2) X10*3/uL Eos # (Auto) (0.0-0.4) X10*3/uL Baso # (Auto) (0.0-0.2) X10*3/uL Abs Immat Gran (auto) (0.00-0.03) X10*3/uL Absolute Neuts (auto) (2.0-8.3) X10*3/uL Absolute Nucleated RBC (0.0-0.012) X10*3/uL Nucleated RBC % (auto) (0.0-0.2) /100WBC Smear Tech's Comments Sodium (135-145) mmol/L Potassium (3.3-5.1) mmol/L Chloride (96-108) mmol/L Carbon Dioxide (22-29) mmol/L Anion Gap (12-20) BUN (9-16) mg/dL Creatinine (0.5-1.4) mg/dL Estim Creat Clear Calc Estimated GFR Random Glucose (60-115) mg/dL Calcium (8.4-10.2) mg/dL Urine Opiates Screen Not Detected (Not Detect) Urine Fentanyl Screen Not Detected (Not Detect) Ur Barbiturates Screen Not Detected (Not Detect) Ur Phencyclidine Scrn Not Detected (Not Detect) Ur Amphetamines Screen Not Detected (Not Detect) U Benzodiazepines Scrn Not Detected (Not Detect) Urine Cocaine Screen Not Detected (Not Detect) U Marijuana (THC) Screen Not Detected (Not Detect) Ethyl Alcohol 435 H* mg/dL COVID-19 (DARRYL) Negative (Negative) COVID-19 Clin Com See Note 06/28/21 06/28/21 Range/Units 22:08 22:08 WBC 2.7 L (4.8-10.8) X10*3/uL RBC 3.63 L (4.60-5.80) X10*6/uL Hgb 13.2 L (14.0-18.0) g/dl Hct 38.2 L (42-52) % MCV 105.2 H (80-98) fL MCH 36.4 H (27.0-33.0) pg MCHC 34.6 (31.0-36.0) g/dl RDW 12.3 (11.0-16.0) % Plt Count 92 L D (160-400) X10*3/uL MPV 10.2 (9.4-12.4) fL Immature Gran % (Auto) 0.0 (0.0-0.4) % Neut % (Auto) 39.3 L (45-73) % Lymph % (Auto) 36.8 (20-40) % [place] % (Auto) 21.3 H (2-11) % Eos % (Auto) 1.1 (0-4) % Baso % (Auto) 1.5 (0-2) % Lymph # (Auto) 1.0 L (1.2-4.9) X10*3/uL [place] # (Auto) 0.6 (0.1-1.2) X10*3/uL Eos # (Auto) 0.0 (0.0-0.4) X10*3/uL Baso # (Auto) 0.0 (0.0-0.2) X10*3/uL Abs Immat Gran (auto) 0.00 (0.00-0.03) X10*3/uL Absolute Neuts (auto) 1.1 L (2.0-8.3) X10*3/uL Absolute Nucleated RBC 0.000 (0.0-0.012) X10*3/uL Nucleated RBC % (auto) 0.0 (0.0-0.2) /100WBC Smear Tech's Comments VERIFIED Sodium 144 (135-145) mmol/L Potassium 3.6 (3.3-5.1) mmol/L Chloride 105 (96-108) mmol/L Carbon Dioxide 29 (22-29) mmol/L Anion Gap 14 (12-20) BUN 3 L D (9-16) mg/dL Creatinine 0.72 (0.5-1.4) mg/dL Estim Creat Clear Calc 141.8 Estimated GFR > 60 Random Glucose 93 (60-115) mg/dL Calcium 9.1 D (8.4-10.2) mg/dL Urine Opiates Screen (Not Detect) Urine Fentanyl Screen (Not Detect) Ur Barbiturates Screen (Not Detect) Ur Phencyclidine Scrn (Not Detect) Ur Amphetamines Screen (Not Detect) U Benzodiazepines Scrn (Not Detect) Urine Cocaine Screen (Not Detect) U Marijuana (THC) Screen (Not Detect) Ethyl Alcohol mg/dL COVID-19 (DARRYL) (Negative) COVID-19 Clin Com Discharge Plan Discharge Clinical Impression: Depression, Alcohol abuse Prescriptions: No Action No Known Home Meds RF: 0
[2021-06-28 22:14] LABS: Amphetamine Screen Urine Not Detected (Not Detect); Barbiturates, Urine Not Detected (Not Detect); Benzodiazepines Screen Urine Not Detected (Not Detect); Cannabinoid Screen Urine Not Detected (Not Detect); Cocaine Screen Urine Not Detected (Not Detect); Fentanyl, urine Not Detected (Not Detect); Opiate Screen Urine Not Detected (Not Detect); Phencyclidine Screen Urine Not Detected (Not Detect)
[2021-06-28 22:16] LABS: MANUAL DIFF FLAG SCAN; Mean Corpuscular HGB Conc 34.6 g/dl (31.0-36.0); Mean Corpuscular Hemoglobin 36.4 pg (27.0-33.0); Mean Platelet Volume 10.2 fL (9.4-12.4); PLT CLUMP 1; SCAN SMEAR FLAG 1
[2021-06-28 22:18] LABS: Basophils Percent Auto 1.5 % (0-2); Eosinophils Percent Auto 1.1 % (0-4); Hematocrit 38.2 % (42-52); Hemoglobin 13.2 g/dl (14.0-18.0); Lymphocytes Percent Auto 36.8 % (20-40); Mean Corpuscular Volume 105.2 fL (80-98); Monocytes Absolute Auto 0.6 X10*3/uL (0.1-1.2); Monocytes Percent Auto 21.3 % (2-11); Neutrophils Absolute Auto 1.1 X10*3/uL (2.0-8.3); Neutrophils Percent Auto 39.3 % (45-73); Platelet Count 92 X10*3/uL (160-400); Red Blood Count 3.63 X10*6/uL (4.60-5.80); Red Cell Distribution Width 12.3 % (11.0-16.0); White Blood Count 2.7 X10*3/uL (4.8-10.8)
[2021-06-28 22:23] LABS: IDNOW Serial# 9DD0AD1C
[2021-06-28 22:24] LABS: COVID-19 Test Negative (Negative)
[2021-06-28 22:30] LABS: Ethanol 435 mg/dL
[2021-06-28 22:32] LABS: Anion Gap 14 (12-20); Blood Urea Nitrogen 3 mg/dL (9-16); Calcium 9.1 mg/dL (8.4-10.2); Carbon Dioxide 29 mmol/L (22-29); Chloride 105 mmol/L (96-108); Creatinine Clr Calc Pharmacy 141.8; Estimated Glomerular Filt Rate > 60; Glucose Random 93 mg/dL (60-115); Potassium 3.6 mmol/L (3.3-5.1); Sodium 144 mmol/L (135-145)
[2021-06-28 22:56] LABS: SLIDE REVIEW VERIFIED
--- NOTE | 2021-06-29 06:11 | PC.NURSE ---
Patient slept through the night, no distress observed/reported, asymptomatic of ETOH withdrawal, patient's disposition will be decided when patient becomes sober, behavior appropriate, will continue to monitor.
--- NOTE | 2021-06-29 07:05 | PC.NURSE ---
Pt ambulated with steady gait to the bathroom. Report from Taz JETER, plan for eval once patient is sober to determine whether he needs crisis eval or not.
[2021-06-29 09:11] VITALS: BP 100/62; PULSE 75; RESP 16; TEMP 36.6; O2SAT 95
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
--- NOTE | 2021-06-29 11:25 | MHC.RECOVSUP ---
? Reason for consult:Continuity of care o Current location:[facility] o Identified substance use concern:ETOH - Withdrawal - Seeking ATS (detox) - Support ? Intervention: o Community resources provided o Harm reduction discussion ? Plan: o Referral to CCC o Patient to follow up with [facility] after discharge ? Additional information: pT. CLEARED by N and refuses to go to detox. Suggested the CCC and MAT, he was very receptive to that. Spoke with him regarding harm reduction and left him with community resources.
== END 2021-06-29 11:47 | disposition home or self-care (01) ==
PROVIDERS: Emergency Provider Emergency Medicine
DX: F33.1 Major depressive disorder, recurrent, moderate (principal); F10.10 Alcohol abuse, uncomplicated; R45.851 Suicidal ideations; Y90.8 Blood alcohol level of 240 mg/100 ml or more; F17.210 Nicotine dependence, cigarettes, uncomplicated; Z71.6 Tobacco abuse counseling; Z79.899 Other long term (current) drug therapy
CPT/HCPCS: 36415; 80048; 80307; 82077; 85025; 87635; 99284

== ENCOUNTER 2022-06-18 04:22 | Emergency (ER) | payer MEDICAID, SELFPAY ==
[2022-06-18 04:26] VITALS: BP 140/92; PULSE 113; O2SAT 93
[2022-06-18 04:37] VITALS: BP 120/81; PULSE 78; RESP 16; TEMP 36.8; O2SAT 96; BMI 29.5
[2022-06-18 04:45] VITALS: BP 120/81; PULSE 71; RESP 16; TEMP 36.8; O2SAT 96
--- NOTE | 2022-06-18 05:02 | PC.NURSE ---
This RN placed IV access in pt. because pt. reports daily ETOH use and a hx. of ETOH withdrawal seizures.
--- NOTE | 2022-06-18 05:12 | PC.NURSE ---
Seizure pads in place
--- NOTE | 2022-06-18 06:45 | ED.ALCOHOL ---
HPI - Alcohol General Chief Complaint: ETOH/Substance Use Stated Complaint: Multiple Complaints Time Seen by Provider: 06/18/22 06:45 Source: patient Mode of arrival: EMS Limitations: no limitations History of Present Illness HPI narrative: 37 yo male with hx of seizures and substance abuse admits to using ETOH and cocaine for the last 24 hours. He denies SI to me and states at 7am when I interviewed him that he doesn't want detox he just needed a place to crash. complaint: alcohol intoxication Last drink: Just prior to admission Chronic alcohol use: Yes Previous visits for alcohol intoxication: Yes Recent trauma: No Associated symptoms: denies other symptoms Treatments prior to arrival: none Related Data Home Medications Medication Instructions Recorded Confirmed No Known Home Meds 12/10/20 12/10/20 Allergies Allergy/AdvReac Type Severity Reaction Status Date / Time shellfish derived Allergy Unknown HIVES Verified 12/21/20 16:07 [SHELLFISH DERIVED] SEAFOOD Allergy Unknown UNKNOWN Uncoded 07/02/20 15:29 Review of Systems Review of Systems: Constitutional : No Fever, No Chills ENT/Mouth : No Ear Pain, No Nasal Congestion, No sore throat Eyes: No Eye Pain, No Swelling, No Redness Cardiovascular : No Chest Pain, No SOB Respiratory : No Cough, No Sputum, No Dyspnea Gastrointestinal : No Nausea, No Vomiting, No Diarrhea, No Hematochezia, No Melena Genitourinary : No Dysuria, No Urinary Frequency, No Hematuria Musculoskeletal : No Myalgias Skin : No Skin Lesions, No rash Neuro : No Weakness, No Numbness, No Paresthesias, No Dizziness, No Headache Psych : no Anxiety,no Depression, no SI/HI All other systems reviewed and are negative [facility] Past Medical History Medical History Alcohol intoxication Asthma Seizure Syncope Surgical History History of mandibular surgery Family History Family History Maternal Grandfather Heart disease Mother Diabetes HTN (hypertension) Father Diabetes Social History Social History Alcohol intake: current Alcohol intake frequency: 3 or more drinks per day Alcohol type: beer, wine and hard liquor Patient Tobacco Use Status: Current someday Tobacco user Cigarettes Per Day: 2 Years Smoked: 10 Smoked in Last 30 Days: Yes Use of substances other than those prescribed or required for medical reasons: Yes Substance Use Type: Crack/Cocaine Substance Use Frequency: Daily Advance Directives: No Physical Exam ED Vital Signs: Vital Signs - 24 hr 06/18/22 04:37 06/18/22 04:45 Temperature 98.2 F 98.2 F Pulse Rate 78 71 Respiratory Rate 16 16 Blood Pressure 120/81 120/81 Pulse Oximetry 96 96 Oxygen Delivery Method Room Air Room Air BMI result Body Mass Index 29.5 Appearance: Alert. Oriented X3. No acute distress. Eyes: Pupils equal, round and reactive to light. ENT: Pharynx normal. Atraumatic Neck: Normal inspection. Neck supple. CVS: Normal heart rate and rhythm. Pulses normal. Respiratory: No respiratory distress. Breath sounds normal. Abdomen: Soft and non-tender. Skin: Skin warm and dry. Normal skin color. Normal skin turgor. Extremities: No lower extremity edema. No calf ttp Neuro: Oriented X 3. No motor deficit. No sensory deficit. MDM - Alcohol MDM Narrative Medical decision making narrative: 37 yo male with hx of seizures and substance abuse here sleeping after drinking and cocaine. He is calm and appropriate this AM. He denies SI. He does not want detox. He can eat and go home. He states he plans to call [facility] on his own. Discharge Plan Discharge Clinical Impression: Active substance abuse Patient Disposition: Home, Self-Care Instructions: Polysubstance Abuse (ED) Additional Instructions: return to ED for any worsening symptoms or concerns please consider detox Prescriptions: No Action No Known Home Meds
== END 2022-06-18 08:34 | disposition home or self-care (01) ==
PROVIDERS: Emergency Provider Emergency Medicine
DX: F19.10 Other psychoactive substance abuse, uncomplicated (principal); F17.210 Nicotine dependence, cigarettes, uncomplicated
CPT/HCPCS: 99282; 99283; 99285

== ENCOUNTER 2022-07-20 14:08 | Emergency (ER) | payer MEDICAID, SELFPAY ==
--- NOTE | ~2022-07-20 | CT_ITS ---
EXAMINATION: CT HEAD WITHOUT CONTRAST CLINICAL INFORMATION: Fall with headache COMPARISON: Head CT 05/21/2021 TECHNIQUE: Imaging was performed from the skull base to vertex without intravenous administration of contrast. This CT examination was performed using dose optimization techniques as appropriate, variously including the following: *Automated exposure control *Adjustment of mA and/or kV according to patient size (this includes techniques or standardized protocols for targeted exams where dose is matched to indication/reason for exam; i.e. extremities or head) *Use of iterative reconstruction technique Total exam dose length product: 851 mGy-cm FINDINGS: No intra or extra-axial fluid collection, hemorrhage, or mass. No ventriculomegaly. No midline shift or herniation. Basal cisterns are patent. Sena-white matter differentiation is maintained. Small area of encephalomalacia in the anterolateral right frontal lobe with surrounding gliosis, unchanged. No significant volume loss. There is no abnormal attenuation within the brain parenchyma. Some motion artifact through the top of the calvarium. No evidence of calvarial fracture. The mastoid air cells and visualized portions of the paranasal sinuses are well aerated. CT/CT head/brain wo IV con IMPRESSION: 1. No intracranial hemorrhage, calvarial fracture, or other acute intracranial abnormality. 2. Unchanged encephalomalacia in the anterolateral right frontal lobe.
--- NOTE | 2022-07-20 14:16 | ED.OVERDOSE ---
HPI - Overdose General Chief Complaint: Overdose Stated Complaint: OD,8 MG NARCAN GIVEN Time Seen by Provider: 07/20/22 14:09 Source: patient Mode of arrival: EMS Limitations: no limitations History of Present Illness HPI Narrative: patient with accidental heroin overdose, 8mg given by first responders, no bagging done. patient denies SI, does not want detox or SUDE evaluation, agrees to take home narcan complaint: accidental overdose Onset (ago): minute(s) (just prior to arrival ) Context: Accidental Overdose: wanted to get high Treatments Prior to Arrival: narcan (8mg) Related Data Home Medications Medication Instructions Recorded Confirmed No Known Home Meds 12/10/20 12/10/20 Allergies Allergy/AdvReac Type Severity Reaction Status Date / Time shellfish derived Allergy Unknown HIVES Verified 12/21/20 16:07 [SHELLFISH DERIVED] SEAFOOD Allergy Unknown UNKNOWN Uncoded 07/02/20 15:29 Review of Systems Review of Systems: Constitutional : No Fever, No Chills ENT/Mouth : No Ear Pain, No Nasal Congestion, No sore throat Eyes: No Eye Pain, No Swelling, No Redness Cardiovascular : No Chest Pain, No SOB Respiratory : No Cough, No Sputum, No Dyspnea Gastrointestinal : No Nausea, No Vomiting, No Diarrhea, No Hematochezia, No Melena Genitourinary : No Dysuria, No Urinary Frequency, No Hematuria Musculoskeletal : No Myalgias Skin : No Skin Lesions, No rash Neuro : No Weakness, No Numbness, No Paresthesias, No Dizziness, No Headache Psych : no Anxiety, no Depression, no SI/HI All other systems reviewed and are negative [facility] Past Medical History Attestation statement: The following information was validated with the patient. Medical History Alcohol intoxication Asthma Seizure Syncope Surgical History History of mandibular surgery Family History Family History Maternal Grandfather Heart disease Mother Diabetes HTN (hypertension) Father Diabetes Social History Social History Alcohol intake: current Alcohol intake frequency: 3 or more drinks per day Alcohol type: beer, wine and hard liquor Patient Tobacco Use Status: Current someday Tobacco user Cigarettes Per Day: 2 Years Smoked: 10 Substance Use Type: Crack/Cocaine Advance Directives: No Advance Directives Information Provided: No Physical Exam Vital Signs: Vital Signs: Last Vital Signs Temp 99.5 F 07/20/22 15:33 Pulse 69 07/20/22 15:33 Resp 18 07/20/22 15:33 BP 161/95 H 07/20/22 15:33 Pulse Ox 96 07/20/22 15:33 O2 Del Method 07/20/22 15:33 BMI result Body Mass Index 23.6 Appearance: Alert. Oriented X3. No acute distress. Eyes: Pupils equal, round and reactive to light. ENT: Pharynx normal. R eyebrow old scar noted, slight swelling Neck: Normal inspection. Neck supple. CVS: Normal heart rate and rhythm. Pulses normal. Respiratory: No respiratory distress. Breath sounds normal. Abdomen: Soft and nontender. Skin: Skin warm and dry. Normal skin color. Normal skin turgor. Extremities: No lower extremity edema. L hand small abrasions on dorsum full ROM Neuro: Oriented X 3. No motor deficit. No sensory deficit. Course Course Course Narrative: signed out to Dr. Bates pending observation and CT head read GCS 15 MDM - Overdose MDM Narrative Medical decision making narrative: 37 yo male with hx of substance abuse and seizures comes in after being found down has slight abrasion to R eyebrow and L hand - full ROM of L hand - is refusing SUDE and detox does not want MAT therapy. Will obtain CT head given swelling on R eyebrow and observe. Home narcan ordered Lab Data Labs: Lab Results 07/20/22 07/20/22 Range/Units 14:44 14:59 POC Glucose 124 H 126 H (60-115) mg/dL Discharge Plan Discharge Clinical Impression: Drug overdose, Abrasion Patient Disposition: Still a Patient Prescriptions: No Action No Known Home Meds
[2022-07-20 14:29] VITALS: BP 121/81; BP 148/80; PULSE 110; PULSE 118; RESP 16; TEMP 36.7; O2SAT 94; O2SAT 95; BMI 23.6
--- NOTE | 2022-07-20 14:41 | PC.NURSE ---
ambulatory to and from bathroom w steady gait. asking for food and drinking, tolerating po without issue
[2022-07-20 14:48] LABS: Glucose, Whole Blood 124 mg/dL (60-115)
--- NOTE | 2022-07-20 15:00 | MHC.RECOVRN ---
T/W met w/ pt, pt alert, sitting in bed. Pt reports had a bad day, was drinking ETOH and fell. T/W asked if used other substances, pt states no. Pt not interested at this time in engaging.
[2022-07-20 15:02] LABS: Glucose, Whole Blood 126 mg/dL (60-115)
[2022-07-20 15:33] VITALS: BP 161/95; PULSE 69; RESP 18; TEMP 37.5; O2SAT 96
--- NOTE | 2022-07-20 15:48 | PC.NURSE ---
VOMITED ON FLOOR, GIVEN EMESIS BAG. PT TOLD TO GO TO BATHROOM AND CLEAN FACE WHILE THIS RN CLEANS AROUND BED AND LINENS. PT AMBULATING TO BATHROOM W STEADY GAIT, THANKFUL FOR CLEAN LINENS. CALM AND COOPERATIVE.
--- NOTE | 2022-07-20 16:35 | MHC.RECOVSUP ---
? Reason for consult Recovery Support o Current location: ED06 o Identified substance use concern: Alcohol - Support ? Intervention: o ATS bed search started/completed/in process o Community resources provided o Harm reduction discussion ? Plan: o Patient awaiting crisis evaluation o Patient to follow up with [facility] after discharge ? Additional information: Met with patient we spoke recovery and Harm reduction.. Recovery info was given to patient to follow up on.. 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
[2022-07-20 16:57] LABS: Glucose, Whole Blood 141 mg/dL (60-115)
--- NOTE | 2022-07-20 19:11 | PC.NURSE ---
Pt aox3. Request gingerale, provided. Reports back pain 07/25.
[2022-07-20 22:00] VITALS: BP 137/71; PULSE 76; RESP 18; TEMP 36.4; O2SAT 96
[2022-07-20 23:53] VITALS: BP 139/78; PULSE 95; RESP 18; TEMP 36.7; O2SAT 99
--- NOTE | 2022-07-21 01:18 | PC.NURSE ---
Pt sleeping at thsi time. Equal chest rises bilaterally. No apparent distress noted. Will continue to monitor.
--- NOTE | 2022-07-21 02:29 | PC.NURSE ---
Pt sleeping at this time. Breaths are even and unlabored with equal chest rises. No apparent distress noted. Will continue to monitor.
--- NOTE | 2022-07-21 02:58 | PC.NURSE ---
Pt aox3. Breaths are even and unlabored. Skin is warm pink and dry. No apparent distress noted. Pt denies SI/HI. Pt denies SA and declines detox referral. Discharge instruction provided to pt. Pt verbalized understanding.
== END 2022-07-21 02:59 | disposition home or self-care (01) ==
PROVIDERS: Emergency Provider Emergency Medicine
DX: T40.1X1A Poisoning by heroin, accidental (unintentional), initial encounter (principal); F14.10 Cocaine abuse, uncomplicated; R51.9 Headache, unspecified; Y92.9 Unspecified place or not applicable; F17.210 Nicotine dependence, cigarettes, uncomplicated; Z79.899 Other long term (current) drug therapy; Z71.51 Drug abuse counseling and surveillance of drug abuser; Z71.6 Tobacco abuse counseling
CPT/HCPCS: 70450; 82947; 99284

== ENCOUNTER 2022-08-04 15:05 | Emergency (ER) | payer MEDICAID, SELFPAY ==
--- NOTE | ~2022-08-04 | CT_ITS ---
EXAMINATION: NONCONTRAST HEAD CT NONCONTRAST CERVICAL SPINE CT INDICATION INFORMATION: Fall, hit head COMPARISON: Head CT 07/20/2022, CT cervical spine 05/21/2021 TECHNIQUE: Separate noncontrast CT examinations of the head and cervical spine were performed. Coronal and sagittal images were created for each examination at the technologist workstation. This CT examination was performed using dose optimization techniques as appropriate, variously including the following: *Automated exposure control *Adjustment of mA and/or kV according to patient size (this includes techniques or standardized protocols for targeted exams where dose is matched to indication/reason for exam; i.e. extremities or head) *Use of iterative reconstruction technique DLP: 1220 mGy-cm FINDINGS: HEAD: No intra or extra-axial fluid collection, hemorrhage, or mass. No ventriculomegaly. No midline shift or herniation. Basal cisterns are patent. Sena-white matter differentiation is maintained. Unchanged small area of encephalomalacia and gliosis in the anterior lateral right frontal lobe. Proportional prominence of the ventricles and sulcal spaces is consistent with mild volume loss. There is no other abnormal attenuation within the brain parenchyma. No calvarial fracture. Mild soft tissue swelling of the right orbit.. The mastoid air cells and visualized portions of the paranasal sinuses are well aerated. CERVICAL SPINE: Alignment: Normal. No subluxation. Vertebra: No acute fracture. No prevertebral soft tissue swelling. Degenerative disc disease: Minimal endplate proliferative change posteriorly at C5-C6. Intervertebral disc space heights are maintained. Other findings: No cervical lymphadenopathy. Visualized major salivary glands and thyroid gland are unremarkable. Visualized lung apices are clear. CT/CT cervical spine wo IV con IMPRESSION: 1. No intracranial hemorrhage or calvarial fracture. 2. Unchanged small area of encephalomalacia and gliosis in the anterior lateral right frontal lobe. 3. No cervical spine fracture or subluxation.
[2022-08-04 15:29] VITALS: BP 167/72; PULSE 120; O2SAT 98
[2022-08-04 15:31] VITALS: BMI 26.6
--- NOTE | 2022-08-04 15:54 | ED_ITS ---
HPI - Overdose General Chief Complaint: Overdose Stated Complaint: OD,FALL FROM STANDING W/HEAD LAC,NARCAN W/GOOD RES Time Seen by Provider: 08/04/22 15:36 Source: patient and EMS Mode of arrival: EMS History of Present Illness HPI Narrative: 37-year-old male with past medical history ETOH abuse, asthma, seizures, syncope, substance abuse, presenting to the ED via EMS for right forehead laceration s/p overdose and fall from standing with + head strike. Patient given Narcan by EMS with good result. 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 Patient does not remember incident. Patient has no complaints at present, reports I feel fine, agitated and would like to be discharged. Denies SI. Tetanus UTD complaint: accidental overdose Onset (ago): minute(s) Related Data Home Medications Medication Instructions Recorded Confirmed No Known Home Meds 12/10/20 12/10/20 Allergies Allergy/AdvReac Type Severity Reaction Status Date / Time shellfish derived Allergy Unknown HIVES Verified 12/21/20 16:07 [SHELLFISH DERIVED] SEAFOOD Allergy Unknown UNKNOWN Uncoded 07/02/20 15:29 Review of Systems Review of Systems: Constitutional: No Fever, No Chills, No Fatigue, No Malaise ENT/Mouth: No Ear Pain, No Nasal Congestion, No sore throat, No Rhinorrhea, No Swallowing Difficulty Eyes: No Eye Pain, No Swelling, No Redness, No Vision Changes Cardiovascular: No Chest Pain, No SOB Respiratory: No Cough, No Sputum, No Dyspnea Gastrointestinal: No Nausea, No Vomiting, No Diarrhea, No Constipation, No Abdominal pain Genitourinary: No Dysuria, No Urinary Frequency, No Hematuria, No Urinary Incont inence/retention Musculoskeletal: No joint pain, No Myalgias, No Joint Swelling Skin: + Skin Lesions, No rash Neuro: No Weakness, + Loss of Consciousness, No Dizziness, + Head strike Psych: No Anxiety/Panic, No Depression, No SI/HI/AH/VH, No Social Issues Yes all other systems are reviewed and are negative Constitutional: Constitutional: Reports as per HPI [facility] Past Medical History Attestation statement: The following information was validated with the patient. Medical History Alcohol intoxication Asthma Seizure Syncope Surgical History History of mandibular surgery Family History Family History Maternal Grandfather Heart disease Mother Diabetes HTN (hypertension) Father Diabetes Social History Social History Alcohol intake: current Alcohol intake frequency: a few times a week Alcohol type: beer, wine and hard liquor Patient Tobacco Use Status: Current someday Tobacco user Cigarettes Per Day: 2 Years Smoked: 10 Substance Use Type: Crack/Cocaine Advance Directives: No Advance Directives Information Provided: No Physical Exam Vital Signs: Vital Signs: BMI result Body Mass Index 26.6 Const: Other: + EtOH odor on breath General: healthy appearing, no acute distress, alert and awake Orientation/consciousness: patient oriented x3 Limitations: no limitations HEENT: Other: +2cm linear laceration to R forehead Head: Yes normal to inspection and Yes atraumatic Ears: hearing grossly normal bilaterally General nose exam: Normal external nose present Face and sinus: Yes normal facial exam Eyes: General: appearance normal, both eyes and all related structures Pupils: Equal, round and reactive pupils present EOM: EOMs intact bilaterally Neck: Other: C-collar in place Neck: Yes normal visual inspection and Yes no meningeal signs Resp: Effort & Inspection: normal respiratory effort and no respiratory distress Auscultation: clear to auscultation bilaterally Cardio: Rate: regular rate Heart sounds: S1 normal heart sound present and S2 normal heart sound present GI: Inspection: Yes normal to inspection Palpation (GI): Soft to palpation, nontender, no guarding and not rigid : General: Yes no CVA tenderness Back/Spine/Pelvis: Other: No midline thoracic/lumbar spinous tenderness/step-off or deformity Back: no CVA tenderness Skin: Rashes: no rashes Wounds: no wounds Neuro: General: patient oriented x3, gait normal, tone normal, moves all extremities, no meningeal signs, no focal motor deficits and CN's II-XI intact bilaterally Cranial nerves: Yes Equal, round and reactive pupils present Gait exam (Neuro): Normal gait present Extrem: General: Yes normal to inspection Course Course Course Narrative: -[id number]--patient obtained his CTs, now no longer found in the emergency department, suspect he eloped. was clinically sober A&Ox3 steady on his feet 1735--CT head/brain wo IV con/CT cervical spine wo IV con IMPRESSION: 1.? No intracranial hemorrhage or calvarial fracture. 2.? Unchanged small area of encephalomalacia and gliosis in the anterior lateral right frontal lobe. 3.? No cervical spine fracture or subluxation. MDM - Overdose MDM Narrative Medical decision making narrative: 37-year-old male with past medical history ETOH abuse, asthma, seizures, syncope, substance abuse, presenting to the ED via EMS for right forehead laceration s/p overdose and fall from standing with + head strike. On exam C- collar in place, no midline spinous tenderness, no focal deficits, ambulating with steady gait, EtOH odor on breath. 2 cm laceration noted to right forehead, patient refusing sutures, will Dermabond. Reports tetanus is up to date. Concern for ICH vs fractures vs accidental overdose. Plan: Will repair wound, head/C-spine CT, observe Differential Diagnosis Differential diagnosis: Likely drug overdose Medical Records Attestation: I reviewed the patient's medical records. Lab Data Attestation: I reviewed the patient's lab results. Discharge Plan Discharge Clinical Impression: Drug overdose, Laceration Patient Disposition: Elopement Prescriptions: No Action No Known Home Meds
== END 2022-08-04 18:24 | disposition left against medical advice (07) ==
PROVIDERS: Emergency Provider Emergency Medicine
DX: S01.81XA Laceration without foreign body of other part of head, initial encounter (principal); T40.5X1A Poisoning by cocaine, accidental (unintentional), initial encounter; R51.9 Headache, unspecified; M54.2 Cervicalgia; W01.0XXA Fall on same level from slipping, tripping and stumbling without subsequent striking against object, initial encounter; Y93.9 Activity, unspecified; Y92.9 Unspecified place or not applicable; Y99.9 Unspecified external cause status; F17.210 Nicotine dependence, cigarettes, uncomplicated; Z71.6 Tobacco abuse counseling; Z79.899 Other long term (current) drug therapy
CPT/HCPCS: 12011; 70450; 72125; 99282; 99284

== ENCOUNTER 2022-11-28 20:25 | Emergency (ER) | payer MEDICAID, SELFPAY ==
--- NOTE | ~2022-11-28 | CT_ITS ---
EXAMINATION: NONCONTRAST HEAD CT NONCONTRAST CERVICAL SPINE CT INDICATION INFORMATION: Altered mental status. Fall. COMPARISON: 08/04/2022 TECHNIQUE: Separate noncontrast CT examinations of the head and cervical spine were performed. Coronal and sagittal images were created for each examination at the technologist workstation. This CT examination was performed using dose optimization techniques as appropriate, variously including the following: *Automated exposure control *Adjustment of mA and/or kV according to patient size (this includes techniques or standardized protocols for targeted exams where dose is matched to indication/reason for exam; i.e. extremities or head) *Use of iterative reconstruction technique DLP: 2186 mGy-cm FINDINGS: Head: There is no evidence of acute intracranial hemorrhage or territorial infarction. No abnormal mass effect or midline shift is seen. Chronic right frontal encephalomalacia. Sena to white matter differentiation is otherwise well preserved. No extra-axial fluid collections are identified. No hydrocephalus. No significant volume loss. No acute osseous or soft tissue abnormality. The mastoid air cells and visualized portions of the paranasal sinuses are well aerated. Cervical spine: There is anatomic alignment of the vertebral bodies and posterior elements. The atlantoaxial and atlantooccipital articulations are intact. Vertebral body heights and intervertebral disc spaces are maintained. No evidence of acute fracture. No prevertebral soft tissue swelling. Visualized portions of the lung apices are unremarkable. The thyroid gland is unremarkable. CT/CT head/brain wo IV con IMPRESSION: 1. No acute intracranial finding. Chronic right frontal encephalomalacia. 2. No acute fracture or malalignment of the cervical spine.
--- NOTE | ~2022-11-28 | CT_ITS ---
EXAMINATION: NONCONTRAST HEAD CT NONCONTRAST CERVICAL SPINE CT INDICATION INFORMATION: Altered mental status. Fall. COMPARISON: 08/04/2022 TECHNIQUE: Separate noncontrast CT examinations of the head and cervical spine were performed. Coronal and sagittal images were created for each examination at the technologist workstation. This CT examination was performed using dose optimization techniques as appropriate, variously including the following: *Automated exposure control *Adjustment of mA and/or kV according to patient size (this includes techniques or standardized protocols for targeted exams where dose is matched to indication/reason for exam; i.e. extremities or head) *Use of iterative reconstruction technique DLP: 2186 mGy-cm FINDINGS: Head: There is no evidence of acute intracranial hemorrhage or territorial infarction. No abnormal mass effect or midline shift is seen. Chronic right frontal encephalomalacia. Sena to white matter differentiation is otherwise well preserved. No extra-axial fluid collections are identified. No hydrocephalus. No significant volume loss. No acute osseous or soft tissue abnormality. The mastoid air cells and visualized portions of the paranasal sinuses are well aerated. Cervical spine: There is anatomic alignment of the vertebral bodies and posterior elements. The atlantoaxial and atlantooccipital articulations are intact. Vertebral body heights and intervertebral disc spaces are maintained. No evidence of acute fracture. No prevertebral soft tissue swelling. Visualized portions of the lung apices are unremarkable. The thyroid gland is unremarkable. CT/CT cervical spine wo IV con IMPRESSION: 1. No acute intracranial finding. Chronic right frontal encephalomalacia. 2. No acute fracture or malalignment of the cervical spine.
--- NOTE | ~2022-11-28 | XR_ITS ---
EXAMINATION: XR CHEST CLINICAL INFORMATION: Fall onto chest COMPARISON: 12/21/20 TECHNIQUE: Frontal view of the chest was obtained. FINDINGS: Cardiac Loop recorder. The lungs are well expanded. There is no focal consolidation, edema, or effusion. No pneumothorax. The cardiomediastinal silhouette is within normal limits. No acute osseous abnormality. XR/XR chest 1V IMPRESSION: Clear lungs. No displaced fractures are seen.
--- NOTE | 2022-11-28 20:32 | ECG_ITS ---
Test Reason : ETOH Blood Pressure : / mmHG Vent. Rate : 093 BPM Atrial Rate : 093 BPM P-R Int : 174 ms QRS Dur : 088 ms QT Int : 376 ms P-R-T Axes : 041 024 033 degrees QTc Int : 467 ms Normal sinus rhythm Normal ECG When compared with ECG of 21-MAY-2021 17:36, No significant change was found Referred By: Maite Collier Electronically Signed By:Alistair Arcos
[2022-11-28 20:35] VITALS: BP 123/87; BP 133/89; PULSE 102; PULSE 103; RESP 20; TEMP 36.1; O2SAT 97; BMI 23.5
--- NOTE | 2022-11-28 20:51 | PC.NURSE ---
Pt noted to have multiple wounds on his abdomen that are leaking puss. Pt states he doesn't know how it happened. PA aware.
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
[2022-11-28 21:23] LABS: MANUAL DIFF FLAG NO
[2022-11-28 21:26] LABS: Basophils Percent Auto 0.5 % (0-2); Eosinophils Absolute Auto 0.2 X10*3/uL (0.0-0.4); Eosinophils Percent Auto 2.6 % (0-4); Hemoglobin 12.5 g/dl (14.0-18.0); Imm Gran Abs Auto 0.02 X10*3/uL (0.00-0.03); Imm Gran Pct Auto 0.3 % (0.0-0.4); Lymphocytes Absolute Auto 3.3 X10*3/uL (1.2-4.9); Lymphocytes Percent Auto 55.7 % (20-40); Mean Corpuscular HGB Conc 32.9 g/dl (31.0-36.0); Mean Corpuscular Hemoglobin 31.7 pg (27.0-33.0); Mean Corpuscular Volume 96.4 fL (80.0-98.0); Monocytes Absolute Auto 0.6 X10*3/uL (0.1-1.2); Monocytes Percent Auto 10.2 % (2-11); Neutrophils Absolute Auto 1.8 x10*3/uL (2.0-8.3); Neutrophils Percent Auto 30.7 % (45-73); Platelet Count 354 X10*3/uL (160-400); Red Blood Count 3.94 X10*6/uL (4.60-5.80); Red Cell Distribution Width 12.9 % (11.0-16.0); White Blood Count 5.9 X10*3/uL (4.8-10.8)
[2022-11-28 21:43] LABS: Acetaminophen LAB < 17 mcg/mL (<30); Alanine Aminotransferase 22 U/L (0-40); Albumin Level 3.6 g/dL (3.5-5.0); Alkaline Phosphatase 101 U/L (39-117); Anion Gap 16 (12-20); Aspartate Amino Transferase 42 U/L (5-37); Bilirubin Total 0.3 mg/dL (0.0-1.0); Blood Urea Nitrogen 3 mg/dL (9-16); Calcium 8.9 mg/dL (8.4-10.2); Carbon Dioxide 26 mmol/L (22-29); Chloride 109 mmol/L (96-108); Creatinine Clr Calc Pharmacy 121.2; Estimated Glomerular Filt Rate > 60; Ethanol 442 mg/dL; Glucose Random 103 mg/dL (60-115); Potassium 3.5 mmol/L (3.3-5.1); Salicylate < 5.0 mg/dL (15-30); Sodium 147 mmol/L (135-145); Total Protein 8.8 g/dL (6.5-8.0)
[2022-11-28 21:57] LABS: COVID-19 Test Negative (Negative); IDNOW Serial# 6674DD1D
[2022-11-29] MEDS: Doxycycline Monohydrate 100 MG CAPSULE PO (00:55)
[2022-11-29] MEDS: cephALEXin 500 MG CAPSULE PO (00:55)
[2022-11-29 06:00] VITALS: BP 96/59; PULSE 75; RESP 14; TEMP 36.6; O2SAT 96
--- NOTE | 2022-11-29 07:27 | PC.NURSE ---
pt ready for discharge at time of shift report. He is awake and alert and tolerating po intake without s/sxs of withdrawal. 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
== END 2022-11-29 07:29 | disposition home or self-care (01) ==
PROVIDERS: Physician Assistant; Emergency Provider Internal Medicine
DX: F10.220 Alcohol dependence with intoxication, uncomplicated (principal); Y90.8 Blood alcohol level of 240 mg/100 ml or more; Z20.822 Contact with and (suspected) exposure to COVID-19; W26.9XXD Contact with unspecified sharp object(s), subsequent encounter; T81.33XD Disruption of traumatic injury wound repair, subsequent encounter; Y82.8 Other medical devices associated with adverse incidents
CPT/HCPCS: 70450; 71045; 72125; 80053; 80143; 80179; 82077; 83735; 85025; 87635; 93005; 99284

== ENCOUNTER 2023-02-09 21:53 | Emergency (ER) | payer MEDICAID, SELFPAY ==
[2023-02-09 21:57] VITALS: BP 160/88; PULSE 98; O2SAT 95
[2023-02-09 22:01] VITALS: BP 140/85; PULSE 90; RESP 17; TEMP 36.6; O2SAT 95; BMI 24.5
--- NOTE | 2023-02-09 22:45 | PC.NURSE ---
Pt. uncooperative and not participating in RN's assessment questions at this time.
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
[2023-02-09 23:56] LABS: MANUAL DIFF FLAG NO
[2023-02-09 23:58] LABS: Eosinophils Absolute Auto 0.1 X10*3/uL (0.0-0.4); Eosinophils Percent Auto 1.8 % (0-4); Hematocrit 34.8 % (42.0-52.0); Hemoglobin 11.5 g/dl (14.0-18.0); Imm Gran Abs Auto 0.01 X10*3/uL (0.00-0.03); Imm Gran Pct Auto 0.3 % (0.0-0.4); Lymphocytes Absolute Auto 1.5 X10*3/uL (1.2-4.9); Lymphocytes Percent Auto 37.5 % (20-40); Mean Corpuscular Hemoglobin 31.2 pg (27.0-33.0); Mean Corpuscular Volume 94.3 fL (80.0-98.0); Mean Platelet Volume 9.4 fL (9.4-12.4); Monocytes Absolute Auto 0.4 X10*3/uL (0.1-1.2); Neutrophils Percent Auto 49.4 % (45-73); Platelet Count 142 X10*3/uL (160-400); Red Blood Count 3.69 X10*6/uL (4.60-5.80); Red Cell Distribution Width 15.4 % (11.0-16.0)
[2023-02-10 00:14] LABS: Ethanol 469 mg/dL
[2023-02-10 00:16] LABS: Anion Gap 17 (12-20); Blood Urea Nitrogen 5 mg/dL (9-16); Calcium 8.2 mg/dL (8.4-10.2); Carbon Dioxide 29 mmol/L (22-29); Chloride 104 mmol/L (96-108); Creatinine Clr Calc Pharmacy 148.2; Estimated Glomerular Filt Rate > 60; Glucose Random 119 mg/dL (60-115); Potassium 3.3 mmol/L (3.3-5.1); Sodium 147 mmol/L (135-145)
[2023-02-10 00:37] VITALS: BP 131/73; PULSE 77; RESP 16; TEMP 36.6; O2SAT 96
[2023-02-10] MEDS: Sulfamethox/Trimeth 800/160 TABLET 1 TAB PO (00:48)
[2023-02-10 03:36] VITALS: BP 119/79; PULSE 73; RESP 16; TEMP 36.4; O2SAT 96
[2023-02-10 05:54] VITALS: BP 123/77; PULSE 69; RESP 17; TEMP 36.2; O2SAT 96
[2023-02-10 08:38] VITALS: BP 134/79; PULSE 105; RESP 20; O2SAT 98
== END 2023-02-10 08:42 | disposition still patient (30) ==
PROVIDERS: Emergency Provider Emergency Medicine
DX: F10.120 Alcohol abuse with intoxication, uncomplicated (principal); Y90.8 Blood alcohol level of 240 mg/100 ml or more; L03.311 Cellulitis of abdominal wall
CPT/HCPCS: 36415; 80048; 82077; 85025; 99283; 99285

== ENCOUNTER 2023-02-18 10:03 | Inpatient (IN) | payer MEDICAID, SELFPAY ==
--- NOTE | 2023-02-18 | ECG_ITS ---
Test Reason : SEIZURE Blood Pressure : / mmHG Vent. Rate : 070 BPM Atrial Rate : 070 BPM P-R Int : 182 ms QRS Dur : 084 ms QT Int : 440 ms P-R-T Axes : -02 046 033 degrees QTc Int : 475 ms Normal sinus rhythm Normal ECG When compared with ECG of 28-NOV-2022 20:49, No significant change was found Referred By: Shira Grace Electronically Signed By:TIFFANY FELIZ MD
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
[2023-02-18 10:09] VITALS: BP 138/80; BP 155/56; PULSE 66; PULSE 83; RESP 18; TEMP 37.2; O2SAT 93; O2SAT 95; BMI 24.4
--- NOTE | 2023-02-18 10:16 | ED.GENADULT ---
HPI - General Adult General Chief complaint: Seizure Stated complaint: ETOH/POSS HEROIN USE Time Seen by Provider: 02/18/23 10:04 Source: patient and EMS Mode of arrival: EMS History of Present Illness HPI narrative: This is a 37 years old male with history of alcohol abuse and substance abuse multiple emergency room visit will brought in by ambulance because because of question of seizure. Bystander called 911 at the EMS arrival was no postictal he was awake and alert with no complain no sign of seizure witnessed by the senior recruiter. Onset (ago): hour(s) (1) Radiation: non-radiation Severity: mild Related Data Previous Rx's Medication Instructions Recorded cephalexin 500 mg tablet 500 mg PO Q6H 10 days #40 tabs 11/29/22 doxycycline hyclate 100 mg capsule 100 mg PO BID 10 days #20 caps 11/29/22 sulfamethoxazole 800 1 tab PO BID #13 tabs 02/10/23 mg-trimethoprim 160 mg tablet (Bactrim DS) Allergies Allergy/AdvReac Type Severity Reaction Status Date / Time shellfish derived Allergy Unknown HIVES Verified 12/21/20 16:07 [SHELLFISH DERIVED] SEAFOOD Allergy Unknown UNKNOWN Uncoded 07/02/20 15:29 Review of Systems Eyes: Eyes: Reports no additional eye complaints Cardiovascular: Cardiovascular: Reports no additional cardiovascular complaints Respiratory: Respiratory: Denies chest congestion and Denies cough Gastrointestinal: Gastrointestinal: Denies abdominal pain PMFSH Past Medical History Medical History Alcohol intoxication Asthma Seizure Syncope Surgical History History of mandibular surgery Family History Family History Maternal Grandfather Heart disease Mother Diabetes HTN (hypertension) Father Diabetes Social History Social History Alcohol intake: current Alcohol intake frequency: 3 or more drinks per day Alcohol type: beer and hard liquor Patient Tobacco Use Status: Current someday Tobacco user Cigarettes Per Day: 2 Years Smoked: 10 Substance Use Type: Crack/Cocaine, Former Substance User, Heroin and IV Drugs Physical Exam ED Vital Signs: Vital Signs - 24 hr 02/18/23 10:09 02/18/23 11:03 02/18/23 12:28 Temperature 98.9 F 98.3 F Pulse Rate 83 111 H 65 Respiratory Rate 18 20 12 Blood Pressure 138/80 149/92 H 151/87 H Pulse Oximetry 95 97 96 Oxygen Delivery Method Room Air Room Air Room Air BMI result Body Mass Index 24.4 Const General: cooperative, comfortable, no acute distress, well developed, alert, awake and Physically active Nutritional Appearance: well nourished Orientation/consciousness: patient oriented x3 HENNC Head: Yes normal to inspection and Yes normocephalic Face and sinus: Yes normal facial exam Mouth: Normal oral and palatal mucosa present Throat: Yes posterior oropharynx normal Neck Neck: Yes normal visual inspection, Yes full ROM and Yes no lymphadenopathy Chest Chest palpation & inspection: normal inspection of the chest Resp Effort & Inspection: normal respiratory effort Cardio Jugular venous distension: no JVD Rate: regular rate Rhythm: regular rhythm GI Inspection: Yes normal to inspection Palpation (GI): Soft to palpation, not firm, nontender and no guarding General: Yes no CVA tenderness Back/Spine/Pelvis Back: no CVA tenderness Skin General skin exam: no rashes or lesions noted Neuro General: patient oriented x3 Course Reevaluation(s) Reevaluation #1: doing better d/w Hospitalist service will admit Time: 14:32 Medications Administered Discontinued Medications Generic Name Dose Route Start Last Admin Trade Name Freq PRN Reason Stop Dose Admin Sodium Chloride 1,000 mls @ 999 mls/hr 02/18/23 10:15 02/18/23 12:36 Ns IVCONT 02/18/23 11:15 Infused .Q1H1M ERIS Infusion Sodium Chloride 1,000 mls @ 999 mls/hr 02/18/23 11:15 02/18/23 12:36 Ns IVCONT 02/18/23 12:15 Infused .Q1H1M ERIS Infusion Sodium Chloride 1,000 mls @ 999 mls/hr 02/18/23 11:30 02/18/23 12:36 Ns IVCONT 02/18/23 12:30 999 mls/hr .Q1H1M ERIS Administration Magnesium Sulfate 2 gm in 50 mls @ 25 mls/hr 02/18/23 11:20 02/18/23 12:37 Magnesium Sulfate/H2o IV 02/18/23 13:19 Infused ONCE ONE Infusion Lorazepam 1 mg 02/18/23 11:21 02/18/23 11:30 Lorazepam 2 Mg/Ml Vial IVPUSH 02/18/23 11:22 1 mg ONCE ONE Administration Ondansetron HCl 4 mg 02/18/23 11:25 02/18/23 11:30 Ondansetron Hcl 4 Mg/2 Ml Vial IVPUSH 02/18/23 11:26 4 mg ONCE ONE Administration Medical Decision Making Medical Decision Making [facility] Narrative: Patient presented with a possible alcohol withdrawal seizure he was tremulous in the emergency department we gave her some IV Ativan, he a low magnesium wich we replaced also elevated CPK he is receiving IV fluids Differential Diagnosis Differential Diagnoses: The differential diagnosis associated with the presentation includes Alcohol withdrawal/subdural hematoma/epidural [place] Admission/Observation Consideration of admission/observation: Escalation of care including admission/observation considered Consult Healthcare Provider Management of the patient was discussed with: Hospitalist Lab Data [facility] Lab Attestation statement: I reviewed the patient's lab results. Hypo magnesemia/elevated CPK 02/18/23 10:35 02/18/23 10:35 Labs: Lab Results 02/18/23 02/18/23 02/18/23 Range/Units 10:35 10:35 11:10 WBC 3.9 L (4.8-10.8) X10*3/uL RBC 3.59 L (4.60-5.80) X10*6/uL Hgb 11.6 L (14.0-18.0) g/dl Hct 34.2 L (42.0-52.0) % MCV 95.3 (80.0-98.0) fL MCH 32.3 (27.0-33.0) pg MCHC 33.9 (31.0-36.0) g/dl RDW 15.6 (11.0-16.0) % Plt Count 63 L D (160-400) X10*3/uL MPV Not Reportable Immature Gran % (Auto) 1.3 H (0.0-0.4) % Neut % (Auto) 74.3 H (45-73) % Lymph % (Auto) 11.8 L (20-40) % [place] % (Auto) 12.3 H (2-11) % Eos % (Auto) 0.0 (0-4) % Baso % (Auto) 0.3 (0-2) % Lymph # (Auto) 0.5 L (1.2-4.9) X10*3/uL [place] # (Auto) 0.5 (0.1-1.2) X10*3/uL Eos # (Auto) 0.0 (0.0-0.4) X10*3/uL Baso # (Auto) 0.0 (0.0-0.2) X10*3/uL Abs Immat Gran (auto) 0.05 H (0.00-0.03) X10*3/uL Absolute Neuts (auto) 2.9 (2.0-8.3) x10*3/uL Absolute Nucleated RBC 0.040 H (0.0-0.012) X10*3/uL Nucleated RBC % (auto) 1.0 H (0.0-0.2) /100WBC Smear Tech's Comments VERIFIED Sodium 133 L (135-145) mmol/L Potassium 3.3 (3.3-5.1) mmol/L Chloride 93 L (96-108) mmol/L Carbon Dioxide 23 (22-29) mmol/L Anion Gap 20 (12-20) BUN 8 L (9-16) mg/dL Creatinine 0.69 (0.5-1.4) mg/dL Estim Creat Clear Calc 146.5 Estimated GFR > 60 Random Glucose 122 H (60-115) mg/dL Calcium 8.9 D (8.4-10.2) mg/dL Magnesium 1.5 L (1.6-2.6) mg/dL Total Bilirubin 1.6 H (0.0-1.0) mg/dL AST 102 H (5-37) U/L ALT 45 H (0-40) U/L Alkaline Phosphatase 88 (39-117) U/L Total Creatine Kinase 1277 H (38-174) U/L Total Protein 8.3 H (6.5-8.0) g/dL Albumin 3.9 (3.5-5.0) g/dL Urine Opiates Screen Not Detected (Not Detect) Urine Fentanyl Screen Not Detected (Not Detect) Ur Barbiturates Screen Not Detected (Not Detect) Ur Phencyclidine Scrn Not Detected (Not Detect) Ur Amphetamines Screen Not Detected (Not Detect) U Benzodiazepines Scrn Not Detected (Not Detect) Urine Cocaine Screen Not Detected (Not Detect) U Marijuana (THC) Screen Not Detected (Not Detect) Ethyl Alcohol < 10 mg/dL External Record Review External record reviewed: Inpatient record Discharge Plan Discharge Clinical Impression: Alcohol withdrawal seizure, Hypomagnesemia, Rhabdomyolysis Patient Disposition: Admitted As Inpatient
[2023-02-18] MEDS: 0.9 % Sodium Chloride 1,000 ML 999 ML IVCONT ×3 (10:36→12:36)
[2023-02-18 10:43] LABS: Basophils Percent Auto 0.3 % (0-2); Hematocrit 34.2 % (42.0-52.0); Hemoglobin 11.6 g/dl (14.0-18.0); Imm Gran Abs Auto 0.05 X10*3/uL (0.00-0.03); Imm Gran Pct Auto 1.3 % (0.0-0.4); Lymphocytes Absolute Auto 0.5 X10*3/uL (1.2-4.9); Lymphocytes Percent Auto 11.8 % (20-40); MANUAL DIFF FLAG SCAN; Mean Corpuscular HGB Conc 33.9 g/dl (31.0-36.0); Mean Corpuscular Hemoglobin 32.3 pg (27.0-33.0); Mean Corpuscular Volume 95.3 fL (80.0-98.0); Monocytes Absolute Auto 0.5 X10*3/uL (0.1-1.2); Monocytes Percent Auto 12.3 % (2-11); Neutrophils Absolute Auto 2.9 x10*3/uL (2.0-8.3); Neutrophils Percent Auto 74.3 % (45-73); PLT CLUMP 1; Red Blood Count 3.59 X10*6/uL (4.60-5.80); Red Cell Distribution Width 15.6 % (11.0-16.0); SCAN SMEAR FLAG 1
[2023-02-18 11:00] LABS: Anion Gap 20 (12-20)
[2023-02-18 11:03] VITALS: BP 149/92; PULSE 111; RESP 20; O2SAT 97
[2023-02-18 11:05] LABS: White Blood Count 3.9 X10*3/uL (4.8-10.8)
[2023-02-18 11:06] LABS: Platelet Count 63 X10*3/uL (160-400)
[2023-02-18 11:07] LABS: SLIDE REVIEW VERIFIED
[2023-02-18 11:08] LABS: Alanine Aminotransferase 45 U/L (0-40); Albumin Level 3.9 g/dL (3.5-5.0); Alkaline Phosphatase 88 U/L (39-117); Aspartate Amino Transferase 102 U/L (5-37); Bilirubin Total 1.6 mg/dL (0.0-1.0); Blood Urea Nitrogen 8 mg/dL (9-16); Calcium 8.9 mg/dL (8.4-10.2); Carbon Dioxide 23 mmol/L (22-29); Chloride 93 mmol/L (96-108); Creatinine Clr Calc Pharmacy 146.5; Estimated Glomerular Filt Rate > 60; Ethanol < 10 mg/dL; Glucose Random 122 mg/dL (60-115); Magnesium 1.5 mg/dL (1.6-2.6); Potassium 3.3 mmol/L (3.3-5.1); Sodium 133 mmol/L (135-145); Total Protein 8.3 g/dL (6.5-8.0)
[2023-02-18 11:22] LABS: Troponin-I High Sensitivity 14.2 ng/L (<3.5-35.0)
[2023-02-18] MEDS: LORazepam 2 MG/ML VIAL 1 MG IVPUSH (11:30)
[2023-02-18] MEDS: ondansetron HCL 4 MG/2 ML VIAL IVPUSH (11:30)
[2023-02-18] MEDS: Magnesium Sulfate/H2O 2 GM/50 ML PIGGYBACK IV (11:30)
[2023-02-18 12:22] LABS: Amphetamine Screen Urine Not Detected (Not Detect); Barbiturates, Urine Not Detected (Not Detect); Benzodiazepines Screen Urine Not Detected (Not Detect); Cannabinoid Screen Urine Not Detected (Not Detect); Cocaine Screen Urine Not Detected (Not Detect); Fentanyl, urine Not Detected (Not Detect); Opiate Screen Urine Not Detected (Not Detect); Phencyclidine Screen Urine Not Detected (Not Detect)
[2023-02-18 12:28] VITALS: BP 151/87; PULSE 65; RESP 12; TEMP 36.8; O2SAT 96
--- NOTE | 2023-02-18 12:43 | PC.NURSE ---
alert and oriented x 3, states feeling better. VSS
--- NOTE | 2023-02-18 14:26 | P.HPHOSP_ITS ---
History of Present Illness Date of Service: 02/18/23 Attending physician on admission: Jamison Ramos Chief Complaint: seizure This is a 37-year-old male with history of alcohol abuse who was brought to the emergency department after concern over the seizure. He was brought in by ambulance after a bystander called 911. There was no witnessed seizure activity by paramedics or in the ED. the patient states that he was vomiting overnight but does not remember anything after waking up this morning. He reports drinking 4 -20 oz beers and multiple nips daily with his last drink estimated to be last night around 7 pm. He has a history of alcohol withdrawal seizures. He denies use of any other drugs. He denies any chest pain, shortness of breath, fever, abdominal pain. In the emergency department CPK was 1277, LFTs mildly elevated. Tox screen negative, alcohol level <10. He received a dose of IV lorazepam as well as IV fluid. The emergency department requested admission for presumed alcohol withdrawal seizure. Review of Systems Review of Systems: Yes all other systems are reviewed and are negative Constitutional: Constitutional: Denies chills and Denies fever(s) ENT: Denies dizziness Cardiovascular: Cardiovascular: Denies chest pain, Denies palpitations and Denies dyspnea Respiratory: Respiratory: Denies cough and Denies dyspnea Gastrointestinal: Gastrointestinal: Denies abdominal pain and Denies diarrhea Neurologic: Denies dizziness Endocrine: Endocrine: Denies palpitations [facility] Medical History Alcohol intoxication Asthma Seizure Syncope Family History Maternal Grandfather Heart disease Mother Diabetes HTN (hypertension) Father Diabetes Surgical History History of mandibular surgery Social History (Updated 02/18/23 @ 14:33 by AMADA Little) Alcohol intake: current Alcohol intake frequency: 3 or more drinks per day Alcohol type: beer and hard liquor Patient Tobacco Use Status: Current someday Tobacco user Cigarettes Per Day: 2 Years Smoked: 10 Smoked in Last 30 Days: No Use of substances other than those prescribed or required for medical reasons: No Substance Use Type: Crack/Cocaine, Former Substance User, Heroin and IV Drugs Substance Use Frequency: Daily Last Used Substance: Just Prior to Admission Any prior treatment program specific to substance use: No Advance Directives: No Advance Directives Information Provided: No Meds Allergies Allergy/AdvReac Type Severity Reaction Status Date / Time shellfish derived Allergy Unknown HIVES Verified 12/21/20 16:07 [SHELLFISH DERIVED] SEAFOOD Allergy Unknown UNKNOWN Uncoded 07/02/20 15:29 Active Medications: Current Medications Acetaminophen (Acetaminophen 325 Mg Tablet) 650 mg PO Q6H PRN PRN Reason: Pain, Mild (Pain Scale 1-3) Docusate Sodium (Docusate Sodium 100 Mg Capsule) 100 mg PO DAILY PRN PRN Reason: Constipation Folic Acid (Folic Acid 1 Mg Tablet) 1 mg PO DAILY ERIS Ondansetron HCl (Ondansetron Hcl 4 Mg/2 Ml Vial) 4 mg IVPUSH Q8H PRN PRN Reason: Nausea and Vomiting Pharmacy Consult (Consult Rx Etoh Phenob Im/Po) 1 each MISCELLANE ONCE PRN; Protocol PRN Reason: Consult order Pharmacy Consult (Consult Rx Perform Med Rec) 1 each MISCELLANE ONCE PRN PRN Reason: Consult order Phenobarbital (Phenobarbital 15 Mg Tablet) 45 mg PO BID [facility] Stop: 02/20/23 21:01 Phenobarbital (Phenobarbital 30 Mg Tablet) 30 mg PO BID [facility] Stop: 02/22/23 21:01 Phenobarbital (Phenobarbital 15 Mg Tablet) 15 mg PO DAILY [facility] Stop: 02/24/23 09:01 Phenobarbital Sodium (Phenobarbital Sodium 130 Mg/Ml Vial Im Q3hx2) 213 mg IM Q3H [facility] Stop: 02/18/23 20:01 Sodium Chloride (0.9 % Sodium Chloride Flush 3 Ml Syringe) 3 ml IVFLUSH QSHIFT [facility] Thiamine HCl (Thiamine Hcl 100 Mg Tablet) 100 mg PO DAILY [facility] Physical Exam Vital Signs and Narrative: Vital Signs: Last Vital Signs Temp 98.3 F 02/18/23 12:28 Pulse 65 02/18/23 12:28 Resp 12 02/18/23 12:28 BP 151/87 H 02/18/23 12:28 Pulse Ox 96 02/18/23 12:28 O2 Del Method Room Air 02/18/23 12:28 BMI result Body Mass Index 24.4 Const: General: no acute distress, alert, awake and poor hygiene Nutritional Appearance: average body habitus Orientation/consciousness: patient oriented x3 Resp: Effort & Inspection: normal respiratory effort, able to speak in complete sentences, no respiratory distress and no use of accessory muscles Cardio: Rate: regular rate Heart sounds: S1 normal heart sound present and S2 normal heart sound present GI: Other: midline abdominal scar Inspection: No distended Palpation (GI): Soft to palpation and nontender Neuro: General: patient oriented x3 and CN's II-XI intact bilaterally Extrem: General: Yes no pedal edema Results Labs 02/18/23 10:35 02/18/23 10:35 Labs: Laboratory Results - last 24 hr 02/18/23 02/18/23 02/18/23 10:35 10:35 11:10 MCV 95.3 MCH 32.3 MCHC 33.9 RDW 15.6 Plt Count 63 L D MPV Not Reportable Immature Gran % (Auto) 1.3 H Neut % (Auto) 74.3 H Lymph % (Auto) 11.8 L [place] % (Auto) 12.3 H Eos % (Auto) 0.0 Baso % (Auto) 0.3 Lymph # (Auto) 0.5 L [place] # (Auto) 0.5 Eos # (Auto) 0.0 Baso # (Auto) 0.0 Abs Immat Gran (auto) 0.05 H Absolute Neuts (auto) 2.9 Absolute Nucleated RBC 0.040 H Nucleated RBC % (auto) 1.0 H Smear Tech's Comments VERIFIED Anion Gap 20 Estim Creat Clear Calc 146.5 Estimated GFR > 60 Random Glucose 122 H Calcium 8.9 D Magnesium 1.5 L Total Bilirubin 1.6 H AST 102 H ALT 45 H Alkaline Phosphatase 88 Total Creatine Kinase 1277 H Troponin I High Sens Total Protein 8.3 H Albumin 3.9 Urine Opiates Screen Not Detected Urine Fentanyl Screen Not Detected Ur Barbiturates Screen Not Detected Ur Phencyclidine Scrn Not Detected Ur Amphetamines Screen Not Detected U Benzodiazepines Scrn Not Detected Urine Cocaine Screen Not Detected U Marijuana (THC) Screen Not Detected Ethyl Alcohol < 10 02/18/23 Unknown MCV MCH MCHC RDW Plt Count MPV Immature Gran % (Auto) Neut % (Auto) Lymph % (Auto) [place] % (Auto) Eos % (Auto) Baso % (Auto) Lymph # (Auto) [place] # (Auto) Eos # (Auto) Baso # (Auto) Abs Immat Gran (auto) Absolute Neuts (auto) Absolute Nucleated RBC Nucleated RBC % (auto) Smear Tech's Comments Anion Gap Estim Creat Clear Calc Estimated GFR Random Glucose Calcium Magnesium Total Bilirubin AST ALT Alkaline Phosphatase Total Creatine Kinase Troponin I High Sens 14.2 Total Protein Albumin Urine Opiates Screen Urine Fentanyl Screen Ur Barbiturates Screen Ur Phencyclidine Scrn Ur Amphetamines Screen U Benzodiazepines Scrn Urine Cocaine Screen U Marijuana (THC) Screen Ethyl Alcohol Imaging Radiologist's Impressions: Impressions Cervical Spine CT 02/18/23 11:34 IMPRESSION: No acute intracranial process seen. Right frontal lobe encephalomalacia unchanged to previous study 11/28/2022. There is no acute fracture, dislocation or subluxation of cervical spine. Head CT 02/18/23 11:34 IMPRESSION: No acute intracranial process seen. Right frontal lobe encephalomalacia unchanged to previous study 11/28/2022. There is no acute fracture, dislocation or subluxation of cervical spine. Assessment and Plan (1) Alcohol withdrawal seizure: Status: Acute (2) Hypomagnesemia: Status: Acute (3) Rhabdomyolysis: Status: Acute Plan This is a 37-year-old homeless male with history of alcohol dependence implantable loop recorder for history of syncope who was brought to the emergency department after a bystander called 911 due to possible seizure. Alcohol use disorder with probable alcohol withdrawal seizure Phenobarbital protocol Thiamine, folate supplementation Care team evaluation seizure precautions Rhabdomyolysis, mild CPK 1277 r/t seizure continue IVF trend CPK Hypomagnesemia Secondary to alcohol use Tele monitoring Replace and follow Elevated LFTs No abdominal pain, likely secondary to alcohol use Trend LFTs Thrombocytopenia acute on chronic r/t etoh use probable underlying liver dz follow CBC no evidence of bleeding chronic normocytic anemia H/H stable above transfusion threshold dvt ppx - mechanical devices code status - full code attending - dr. ramos Given alcohol withdrawal patient will likely require 2 midnight stay in the [facility] for phenobarbital, close monitoring and management of electrolytes Time Spent With Patient Time: Total time managing care of this patient today ____ minutes. Quality Stroke Does the patient have a stroke diagnosis?: No VTE Prior VTE?: No VTE Risk Level:: Medical - moderate - high VTE Device Contraindication: N/A - Device Ordered VTE Drug Contraindication: Treatment Not Indicated
[2023-02-18] MEDS: PHENobarbitaL sodium 130 MG/ML IM ONCE 284 MG IM (14:52)
[2023-02-18] MEDS: Folic Acid 1 MG TABLET PO (14:52)
[2023-02-18] MEDS: Thiamine HCL 100 MG TABLET PO (14:52)
[2023-02-18 15:19] VITALS: BP 121/80; PULSE 73; RESP 13; TEMP 37.3; O2SAT 98
--- NOTE | 2023-02-18 15:21 | PHA.MEDREC ---
Pharmacy Consult ? Medication Reconciliation Pharmacy has completed the medication reconciliation.
--- NOTE | 2023-02-18 15:35 | MHC.RECOVRN ---
This conventional underwriter went to meet with patient after receiving consult via the care team for AUD. Patient resting comfortably, not able to rouse. T/W will f/u with patient at a later time.
[2023-02-18] MEDS: Lactated Ringers 1,000 ML 125 ML IVCONT (16:03)
[2023-02-18] MEDS: PHENobarbitaL sodium 130 MG/ML VIAL IM Q3Hx2 213 MG IM ×2 (17:24→21:10)
[2023-02-18 21:08] VITALS: BP 144/86; PULSE 69; RESP 20; TEMP 37.4; O2SAT 98
[2023-02-18 23:43] VITALS: BP 135/79; PULSE 67; RESP 18; TEMP 37.9; O2SAT 98
[2023-02-19] MEDS: ondansetron HCL 4 MG/2 ML VIAL IVPUSH (00:29)
[2023-02-19] MEDS: 0.9 % Sodium Chloride Flush 3 ML SYRINGE IVFLUSH ×3 (00:30→13:40)
[2023-02-19 03:06] VITALS: BP 127/76; PULSE 67; RESP 16; TEMP 37.2; O2SAT 98
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
[2023-02-19 07:05] LABS: Alanine Aminotransferase 40 U/L (0-40); Albumin Level 3.3 g/dL (3.5-5.0); Alkaline Phosphatase 65 U/L (39-117); Anion Gap 13 (12-20); Aspartate Amino Transferase 112 U/L (5-37); Bilirubin Direct 0.5 mg/dL (0.0-0.5); Bilirubin Total 1.6 mg/dL (0.0-1.0); Blood Urea Nitrogen 6 mg/dL (9-16); Calcium 8.4 mg/dL (8.4-10.2); Carbon Dioxide 26 mmol/L (22-29); Chloride 95 mmol/L (96-108); Creatinine Clr Calc Pharmacy 163.1; Estimated Glomerular Filt Rate > 60; Glucose Random 84 mg/dL (60-115); Potassium 2.7 mmol/L (3.3-5.1); Sodium 131 mmol/L (135-145)
[2023-02-19 07:39] VITALS: BP 149/82; PULSE 53; RESP 20; TEMP 37.3; O2SAT 97
[2023-02-19] MEDS: Lactated Ringers 1,000 ML 150 ML IVCONT ×3 (08:01→20:40)
[2023-02-19 08:03] LABS: Magnesium 1.7 mg/dL (1.6-2.6)
[2023-02-19] MEDS: Potassium Chloride/H20 10 MEQ/100 ML PIGGYBACK 100 MEQ IV ×4 (08:04→11:18)
[2023-02-19] MEDS: Potassium Chloride Packet 20 MEQ PACKET PO (08:09)
[2023-02-19] MEDS: Thiamine HCL 100 MG TABLET PO (08:09)
[2023-02-19] MEDS: Folic Acid 1 MG TABLET PO (08:09)
[2023-02-19] MEDS: PHENobarbitaL 15 MG TABLET 45 MG PO ×2 (08:09→20:40)
--- NOTE | 2023-02-19 10:38 | HO.PM.IMPN ---
Subjective Subjective Date of Service: 02/19/23 Interval History: seen and examined this morning follow up for alcohol withdrawal seizure no overnight events feeling well, a little anxious. no abdominal pain or vomiting Review of Systems Review of Systems: Yes all other systems are reviewed and are negative Constitutional Constitutional: Denies chills and Denies fever(s) Cardiovascular Cardiovascular: Denies chest pain, Denies palpitations and Denies dyspnea Respiratory Respiratory: Denies cough and Denies dyspnea Gastrointestinal Gastrointestinal: Denies abdominal pain, Denies nausea and Denies vomiting Endocrine Endocrine: Denies palpitations Physical Exam Vital Signs: Vital Signs: Last Vital Signs Temp 99.2 F 02/19/23 07:39 Pulse 53 02/19/23 07:39 Resp 20 02/19/23 07:39 BP 149/82 H 02/19/23 07:39 Pulse Ox 97 02/19/23 07:39 O2 Del Method Room Air 02/19/23 07:39 BMI result Body Mass Index 24.4 Const: General: no acute distress, alert, awake and poor hygiene Nutritional Appearance: average body habitus Orientation/consciousness: patient oriented x3 Resp: Effort & Inspection: normal respiratory effort, able to speak in complete sentences, no respiratory distress and no use of accessory muscles Cardio: Rate: regular rate Heart sounds: S1 normal heart sound present and S2 normal heart sound present GI: Other: midline abdominal scar Inspection: No distended Palpation (GI): Soft to palpation and nontender Neuro: General: patient oriented x3 and CN's II-XI intact bilaterally Extrem: General: Yes no pedal edema Objective Data Active Medications Acetaminophen (Acetaminophen 325 Mg Tablet) 650 mg PO Q6H PRN PRN Reason: Pain, Mild (Pain Scale 1-3) Docusate Sodium (Docusate Sodium 100 Mg Capsule) 100 mg PO DAILY PRN PRN Reason: Constipation Folic Acid (Folic Acid 1 Mg Tablet) 1 mg PO DAILY [facility] Last Admin: 02/19/23 08:09 Dose: 1 mg Documented By: JESSICA Lactated Ringer's (Lr) 1,000 mls @ 150 mls/hr IVCONT .Q6H40M [facility] Last Admin: 02/19/23 08:01 Dose: 150 mls/hr Documented By: JESSICA Potassium Chloride (Potassium Chloride/H20) 10 meq in 100 mls @ 100 mls/hr IV Q1H [facility] Stop: 02/19/23 11:59 Last Admin: 02/19/23 10:20 Dose: 100 mls/hr Documented By: JESSICA Ondansetron HCl (Ondansetron Hcl 4 Mg/2 Ml Vial) 4 mg IVPUSH Q8H PRN PRN Reason: Nausea and Vomiting Last Admin: 02/19/23 00:29 Dose: 4 mg Documented By: TRENA Pharmacy Consult (Consult Rx Etoh Phenob Im/Po) 1 each MISCELLANE ONCE PRN; Protocol PRN Reason: Consult order Pharmacy Consult (Consult Rx Perform Med Rec) 1 each MISCELLANE ONCE PRN PRN Reason: Consult order Phenobarbital (Phenobarbital 15 Mg Tablet) 45 mg PO BID [facility] Stop: 02/20/23 21:01 Last Admin: 02/19/23 08:09 Dose: 45 mg Documented By: JESSICA Phenobarbital (Phenobarbital 30 Mg Tablet) 30 mg PO BID [facility] Stop: 02/22/23 21:01 Phenobarbital (Phenobarbital 15 Mg Tablet) 15 mg PO DAILY [facility] Stop: 02/24/23 09:01 Sodium Chloride (0.9 % Sodium Chloride Flush 3 Ml Syringe) 3 ml IVFLUSH QSHIFT [facility] Last Admin: 02/19/23 08:08 Dose: 3 ml Documented By: JESSICA Thiamine HCl (Thiamine Hcl 100 Mg Tablet) 100 mg PO DAILY [facility] Last Admin: 02/19/23 08:09 Dose: 100 mg Documented By: JESSICA Labs 02/18/23 10:35 02/19/23 05:58 Labs: Laboratory Results - last 24 hr 02/18/23 02/18/23 02/18/23 10:35 10:35 11:10 MCV 95.3 MCH 32.3 MCHC 33.9 RDW 15.6 Plt Count 63 L D MPV Not Reportable Immature Gran % (Auto) 1.3 H Neut % (Auto) 74.3 H Lymph % (Auto) 11.8 L [place] % (Auto) 12.3 H Eos % (Auto) 0.0 Baso % (Auto) 0.3 Lymph # (Auto) 0.5 L [place] # (Auto) 0.5 Eos # (Auto) 0.0 Baso # (Auto) 0.0 Abs Immat Gran (auto) 0.05 H Absolute Neuts (auto) 2.9 Absolute Nucleated RBC 0.040 H Nucleated RBC % (auto) 1.0 H Smear Tech's Comments VERIFIED Anion Gap 20 Estim Creat Clear Calc 146.5 Estimated GFR > 60 Random Glucose 122 H Calcium 8.9 D Magnesium 1.5 L Total Bilirubin 1.6 H Direct Bilirubin AST 102 H ALT 45 H Alkaline Phosphatase 88 Total Creatine Kinase 1277 H Troponin I High Sens Total Protein 8.3 H Albumin 3.9 Urine Opiates Screen Not Detected Urine Fentanyl Screen Not Detected Ur Barbiturates Screen Not Detected Ur Phencyclidine Scrn Not Detected Ur Amphetamines Screen Not Detected U Benzodiazepines Scrn Not Detected Urine Cocaine Screen Not Detected U Marijuana (THC) Screen Not Detected Ethyl Alcohol < 10 02/18/23 02/19/23 Unknown 05:58 MCV MCH MCHC RDW Plt Count MPV Immature Gran % (Auto) Neut % (Auto) Lymph % (Auto) [place] % (Auto) Eos % (Auto) Baso % (Auto) Lymph # (Auto) [place] # (Auto) Eos # (Auto) Baso # (Auto) Abs Immat Gran (auto) Absolute Neuts (auto) Absolute Nucleated RBC Nucleated RBC % (auto) Smear Tech's Comments Anion Gap 13 Estim Creat Clear Calc 163.1 Estimated GFR > 60 Random Glucose 84 Calcium 8.4 Magnesium 1.7 Total Bilirubin 1.6 H Direct Bilirubin 0.5 AST 112 H ALT 40 Alkaline Phosphatase 65 Total Creatine Kinase 1994 H Troponin I High Sens 14.2 Total Protein 7.0 Albumin 3.3 L Urine Opiates Screen Urine Fentanyl Screen Ur Barbiturates Screen Ur Phencyclidine Scrn Ur Amphetamines Screen U Benzodiazepines Scrn Urine Cocaine Screen U Marijuana (THC) Screen Ethyl Alcohol Assessment and Plan (1) Alcohol withdrawal seizure: Status: Acute (2) Hypomagnesemia: Status: Acute (3) Rhabdomyolysis: Status: Acute Plan This is a 37-year-old homeless male with history of alcohol dependence implantable loop recorder for history of syncope who was brought to the emergency department after a bystander called 911 due to possible seizure. Alcohol use disorder with probable alcohol withdrawal seizure Continue phenobarbital protocol Continue thiamine, folate supplementation Care team evaluation pending seizure precautions follow CIWA Rhabdomyolysis, mild CPK 1277 up slightly to 1993 renal function stable r/t seizure continue IVF trend CPK Hypomagnesemia Secondary to alcohol use Tele monitoring Replace and follow Hypokalemia replace and follow Elevated LFTs No abdominal pain, likely secondary to alcohol use/rhabdo trending down Thrombocytopenia acute on chronic r/t etoh use probable underlying liver dz follow CBC no evidence of bleeding chronic normocytic anemia H/H stable above transfusion threshold dvt ppx - mechanical devices code status - full code attending - dr. Forrest Requires ongoing inpatient hospitalization for phenobarbital, rhabdo, close monitoring and management of electrolytes Time Spent With Patient Time: Total time managing care of this patient today ____ minutes. Quality Stroke Does the patient have a stroke diagnosis?: No VTE Prior VTE?: No VTE Risk Level:: Medical - moderate - high VTE Device Contraindication: N/A - Device Ordered VTE Drug Contraindication: Treatment Not Indicated
[2023-02-19] MEDS: Magnesium Sulfate/H2O 2 GM/50 ML PIGGYBACK IV (11:18)
[2023-02-19 11:29] VITALS: BP 150/87; PULSE 62; RESP 20; TEMP 36.7; O2SAT 98
--- NOTE | 2023-02-19 12:29 | MHC.RECOVRN ---
This medical technical writer met w/ patient. Patient was awake, alert, sitting up in bed, watching television. Patient reports drinking for many years daily at least 6, 24 oz beers and 6-7 nips . Patient reports in the past has completed various levels of treatment including ATS, CSS, TSS level of care. [facility] went onto sober living at [facility]; patient reports was drinking at [facility] level of care. Patient states in the past received TRINI INJ for ETOH use, patient states was not effective. During PETTY hx, patient confused about time frame and current year. Patient reports sweats and when trying to fall asleep seeing and feeling things that aren't there-feels like hospital bed is vertical and up against the wall . Patient denies head ache, agitation, anxiety, auditory hallucinations, N/V. This medical technical writer and patient discussed recovery supports, patient reports has recovery supports. Patient inquired about at d/c levels of care available for ETOH use, reviewed CSS level of care. Patient agreeable to review recovery resources, patient reminded if interested in CSS level of care to let the Addiction/Recovery team know. Patient verbalized understanding.
[2023-02-19] MEDS: hydrOXYzine HCL 25 MG TABLET PO ×2 (13:18→20:46)
--- NOTE | 2023-02-19 15:33 | MHC.CM.PN ---
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 PT DENIES USE OF DME AND REPORTS HE USES A [facility] CLINIC ON [address] WHICH IS CLEAN [place], CM WILL GIVE INFO TO RN IF NOT ORDERED YET. PT'S UTOX ON ADMIT NEGATIVE FOR ALL SUBSTANCES, NOT TESTED FOR SUBOX[facility]. RECOVERY NURSE HAS MET W/PT AND IS AVAILABLE IF HE WOULD LIKE CCS PROGRAM. PT AWARE HE CAN REQUEST TO SPEAK W/CM IF HE WOULD LIKE ASSISTANCE W/USP PLACEMENT AND MAY NEED BUS PASS/SHUTTLE/LYFT FOR TRANSPORT.
[2023-02-19 15:36] VITALS: BP 112/72; PULSE 78; RESP 18; TEMP 37.1; O2SAT 98
--- NOTE | 2023-02-19 17:10 | HE.PHANOTE ---
Followed up with [facility] pharmacy on suboxone 8/2 mg, [facility] states that prescriber wrote for 1 film daily even though rx in question was for 28 films/14 days supply, entered in as 1 film daily on pt's med rec
[2023-02-19] MEDS: Buprenorphine/Naloxone 8/2 mg FILM 1 FILM SUBLINGUAL (17:40)
[2023-02-19 20:00] VITALS: BP 154/84; PULSE 78; RESP 20; TEMP 36.9; O2SAT 96
[2023-02-19] MEDS: PHENobarbitaL sodium 130 MG/ML VIAL IM (23:14)
[2023-02-19 23:52] VITALS: BP 166/94; PULSE 70; RESP 20; TEMP 37.1; O2SAT 96
[2023-02-20] VITALS (7 sets, daily range): BP systolic 134–178; BP diastolic 86–112; PULSE 65–134; RESP 18–20; TEMP 36.5–37.5; O2SAT 94–100
[2023-02-20] MEDS: Lactated Ringers 1,000 ML 150 ML IVCONT (03:37)
[2023-02-20 07:44] LABS: Anion Gap 10 (12-20); Blood Urea Nitrogen 6 mg/dL (9-16); Calcium 8.4 mg/dL (8.4-10.2); Carbon Dioxide 26 mmol/L (22-29); Chloride 101 mmol/L (96-108); Creatinine Clr Calc Pharmacy 163.1; Estimated Glomerular Filt Rate > 60; Glucose Random 84 mg/dL (60-115); Magnesium 1.5 mg/dL (1.6-2.6); Potassium 3.4 mmol/L (3.3-5.1); Sodium 134 mmol/L (135-145)
[2023-02-20] MEDS: PHENobarbitaL 15 MG TABLET 45 MG PO ×2 (09:28→20:22)
[2023-02-20] MEDS: Buprenorphine/Naloxone 8/2 mg FILM 1 FILM SUBLINGUAL (09:29)
[2023-02-20] MEDS: Folic Acid 1 MG TABLET PO (09:29)
[2023-02-20] MEDS: Thiamine HCL 100 MG TABLET PO (09:29)
[2023-02-20] MEDS: Magnesium Sulfate/H2O 2 GM/50 ML PIGGYBACK IV (09:32)
[2023-02-20] MEDS: 0.9 % Sodium Chloride Flush 3 ML SYRINGE IVFLUSH ×2 (09:35→20:21)
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
[2023-02-20] MEDS: Haloperidol Lactate 5 MG/ML VIAL 2 MG IM (10:31)
[2023-02-20] MEDS: Haloperidol Lactate 5 MG/ML VIAL 2.5 MG IM (11:05)
--- NOTE | 2023-02-20 12:15 | PC.NURSE ---
pt was going through alcohol withdraw. On assessment, he is very impulsive, agitated and restless. HR 130-150 sinus tach, DIP LUBE OPERATOR notified. Continue to monitor.
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
[2023-02-20] MEDS: Lactated Ringers 1,000 ML 200 ML IVCONT (13:40)
--- NOTE | 2023-02-20 14:09 | MHC.CM.PN ---
EMR REVIEWED AND PER MD ROUNDS, PT NOT MEDICALLY CLEARED FOR DC (CIWA 14, AGITATION, RESTLESS REQUIRING A 1:1 SITTER) CM WILL CONTINUE TO FOLLOW FOR DC NEEDS.
[2023-02-20] MEDS: Acetaminophen 325 MG TABLET 650 MG PO (20:21)
[2023-02-20] MEDS: hydrOXYzine HCL 25 MG TABLET PO (20:22)
[2023-02-21] VITALS (7 sets, daily range): BP systolic 126–152; BP diastolic 72–97; PULSE 84–104; RESP 18–20; TEMP 36.5–37.1; O2SAT 87–97
--- NOTE | 2023-02-21 | ECG_ITS ---
Test Reason : baseline Blood Pressure : / mmHG Vent. Rate : 083 BPM Atrial Rate : 083 BPM P-R Int : 158 ms QRS Dur : 080 ms QT Int : 364 ms P-R-T Axes : 009 017 029 degrees QTc Int : 427 ms Normal sinus rhythm Normal ECG When compared with ECG of 18-FEB-2023 14:45, No significant change was found Referred By: Preeti Acevedo Electronically Signed By:ANU ROLBES
[2023-02-21] MEDS: Acetaminophen 325 MG TABLET 650 MG PO ×2 (03:07→20:05)
[2023-02-21 04:18] LABS: Anion Gap 12 (12-20); Blood Urea Nitrogen 6 mg/dL (9-16); Calcium 9.3 mg/dL (8.4-10.2); Carbon Dioxide 31 mmol/L (22-29); Chloride 98 mmol/L (96-108); Creatinine Clr Calc Pharmacy 142.4; Estimated Glomerular Filt Rate > 60; Glucose Random 106 mg/dL (60-115); Potassium 3.9 mmol/L (3.3-5.1); Sodium 137 mmol/L (135-145)
[2023-02-21] MEDS: Folic Acid 1 MG TABLET PO (07:59)
[2023-02-21] MEDS: Buprenorphine/Naloxone 8/2 mg FILM 1 FILM SUBLINGUAL (07:59)
[2023-02-21] MEDS: 0.9 % Sodium Chloride Flush 3 ML SYRINGE IVFLUSH ×2 (07:59→12:46)
[2023-02-21] MEDS: Thiamine HCL 100 MG TABLET PO (07:59)
[2023-02-21] MEDS: PHENobarbitaL 30 MG TABLET PO ×2 (07:59→20:06)
[2023-02-21 11:23] LABS: Magnesium 1.5 mg/dL (1.6-2.6)
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
--- NOTE | 2023-02-21 12:36 | MHC.CM.PN ---
EMR REVIEWED, PER OSPITALIST PT REMAINS IMPULSIVE W/SOME DELERIUM, TOTAL CK INCREASING AND MAGNEWSIUM LOW, PT WILL RECEIVE COURSE OF IV MAGNESIUM AND CONT IV FLUIDS, CM WILL CONT TO FOLLOW D/C NEEDS.
[2023-02-21] MEDS: Thiamine HCL 500 MG in 0.9 % Sodium Chloride 100 ML 210 MG IV ×2 (12:46→20:44)
[2023-02-21] MEDS: Magnesium Sulfate/H2O 2 GM/50 ML PIGGYBACK IV (16:22)
[2023-02-21 16:48] LABS: VBG Base Excess 9.3 mmol/L; VBG HCO3 34 mmol/L (22-26); VBG pCO2 49 mmHg; VBG pH 7.45 (7.32-7.43); VBG pO2 47 mmHg
[2023-02-21 16:50] LABS: Venous Blood Gas Refer to POC result
[2023-02-21 17:04] LABS: Alanine Aminotransferase 114 U/L (0-40); Albumin Level 3.9 g/dL (3.5-5.0); Alkaline Phosphatase 82 U/L (39-117); Aspartate Amino Transferase 299 U/L (5-37); Bilirubin Direct 0.3 mg/dL (0.0-0.5); Bilirubin Total 0.7 mg/dL (0.0-1.0); Phosphorus 4.9 mg/dL (2.7-4.5); Total Protein 7.9 g/dL (6.5-8.0)
[2023-02-21 17:16] LABS: Troponin-I High Sensitivity < 2.7 ng/L (<3.5-35.0)
[2023-02-21] MEDS: Magnesium Oxide 400 MG TABLET PO (17:33)
[2023-02-21] MEDS: 0.9 % Sodium Chloride 1,000 ML 200 ML IVCONT (18:10)
[2023-02-21] MEDS: hydrOXYzine HCL 25 MG TABLET PO (20:05)
[2023-02-22] VITALS (7 sets, daily range): BP systolic 100–149; BP diastolic 64–98; PULSE 70–105; RESP 18–20; TEMP 36.2–37.6; O2SAT 95–99
[2023-02-22] MEDS: Thiamine HCL 500 MG in 0.9 % Sodium Chloride 100 ML 210 MG IV ×3 (04:48→19:54)
[2023-02-22] MEDS: 0.9 % Sodium Chloride Flush 3 ML SYRINGE IVFLUSH ×3 (04:48→19:48)
[2023-02-22 07:01] LABS: MANUAL DIFF FLAG NO
[2023-02-22 07:09] LABS: Basophils Percent Auto 0.7 % (0-2); Eosinophils Absolute Auto 0.1 X10*3/uL (0.0-0.4); Hematocrit 33.3 % (42.0-52.0); Hemoglobin 11.1 g/dl (14.0-18.0); Imm Gran Abs Auto 0.01 X10*3/uL (0.00-0.03); Imm Gran Pct Auto 0.2 % (0.0-0.4); Lymphocytes Absolute Auto 1.3 X10*3/uL (1.2-4.9); Lymphocytes Percent Auto 31.3 % (20-40); Mean Corpuscular HGB Conc 33.3 g/dl (31.0-36.0); Mean Corpuscular Hemoglobin 32.4 pg (27.0-33.0); Mean Corpuscular Volume 97.1 fL (80.0-98.0); Mean Platelet Volume 10.5 fL (9.4-12.4); Monocytes Absolute Auto 0.7 X10*3/uL (0.1-1.2); Monocytes Percent Auto 17.1 % (2-11); Neutrophils Percent Auto 47.7 % (45-73); Platelet Count 159 X10*3/uL (160-400); Red Blood Count 3.43 X10*6/uL (4.60-5.80); White Blood Count 4.3 X10*3/uL (4.8-10.8)
[2023-02-22 07:35] LABS: Anion Gap 12 (12-20); Blood Urea Nitrogen 6 mg/dL (9-16); Calcium 8.9 mg/dL (8.4-10.2); Carbon Dioxide 31 mmol/L (22-29); Chloride 99 mmol/L (96-108); Estimated Glomerular Filt Rate > 60; Glucose Random 98 mg/dL (60-115); Potassium 3.8 mmol/L (3.3-5.1); Sodium 138 mmol/L (135-145)
[2023-02-22] MEDS: Thiamine HCL 100 MG TABLET PO (08:25)
[2023-02-22] MEDS: Enoxaparin Sodium 40 MG/0.4 ML SYRINGE SUBCUT (08:25)
[2023-02-22] MEDS: Folic Acid 1 MG TABLET PO (08:25)
[2023-02-22] MEDS: Magnesium Oxide 400 MG TABLET PO ×2 (08:25→17:30)
[2023-02-22] MEDS: PHENobarbitaL 30 MG TABLET PO (08:25)
[2023-02-22] MEDS: Buprenorphine/Naloxone 8/2 mg FILM 1 FILM SUBLINGUAL (08:35)
[2023-02-22] MEDS: 0.9 % Sodium Chloride 1,000 ML 125 ML IVCONT ×2 (08:37→17:27)
[2023-02-22 09:27] LABS: Magnesium 1.7 mg/dL (1.6-2.6)
[2023-02-22] MEDS: PHENobarbitaL sodium 130 MG/ML VIAL IM (10:48)
--- NOTE | 2023-02-22 11:29 | HO.PM.IMPN ---
Subjective Subjective Date of Service: 02/22/23 Interval History: tremulous, anxious knows he is hallucinating Review of Systems Review of Systems: Yes all other systems are reviewed and are negative Physical Exam Vital Signs: Vital Signs: Last Vital Signs Temp 98.7 F 02/22/23 07:51 Pulse 97 02/22/23 07:51 Resp 20 02/22/23 07:51 BP 142/95 H 02/22/23 07:51 Pulse Ox 97 02/22/23 07:51 O2 Del Method Room Air 02/22/23 07:51 BMI result Body Mass Index 24.4 Gen: anxious, diaphoretic, tremulous HEENT: sclera anicteric, moist mucus membranes Neck: supple Lungs: clear to auscultation bilaterally Heart: tachycardic, no murmurs Abd: soft, non-tender, non-distended Ext: no edema Skin: warm/well-perfused, moist Neuro: alert and oriented x3, no focal findings Psych: anxious Objective Data Active Medications Acetaminophen (Acetaminophen 325 Mg Tablet) 650 mg PO Q6H PRN PRN Reason: Pain, Mild (Pain Scale 1-3) Last Admin: 02/21/23 20:05 Dose: 650 mg Documented By: RAYO Buprenorphine/Naloxone (Buprenorphine/Naloxone 8/2 Mg Film) 1 film SUBLINGUAL DAILY [facility] Last Admin: 02/22/23 08:35 Dose: 1 film Documented By: TRACI Docusate Sodium (Docusate Sodium 100 Mg Capsule) 100 mg PO DAILY PRN PRN Reason: Constipation Enoxaparin Sodium (Enoxaparin Sodium 40 Mg/0.4 Ml Syringe) 40 mg SUBCUT Q24H [facility] Last Admin: 02/22/23 08:25 Dose: 40 mg Documented By: TRACI Folic Acid (Folic Acid 1 Mg Tablet) 1 mg PO DAILY [facility] Last Admin: 02/22/23 08:25 Dose: 1 mg Documented By: TRACI Haloperidol Lactate (Haloperidol Lactate 5 Mg/Ml Vial) 5 mg IM ONCE PRN PRN Reason: agitation Hydroxyzine HCl (Hydroxyzine Hcl 25 Mg Tablet) 25 mg PO Q8H PRN PRN Reason: Anxiety Last Admin: 02/21/23 20:05 Dose: 25 mg Documented By: RAYO Thiamine HCl 500 mg/ Sodium (Chloride) 105 mls @ 210 mls/hr IV Q8H [facility] Stop: 02/23/23 04:14 Last Infusion: 02/22/23 05:31 Dose: 0 mls/hr Documented By: RAYO Sodium Chloride (Ns) 1,000 mls @ 125 mls/hr IVCONT .Q8H [facility] Last Admin: 02/22/23 08:37 Dose: 125 mls/hr Documented By: TRACI Magnesium Oxide (Magnesium Oxide 400 Mg Tablet) 400 mg PO BIDPC [facility] Last Admin: 02/22/23 08:25 Dose: 400 mg Documented By: TRACI Ondansetron HCl (Ondansetron Hcl 4 Mg/2 Ml Vial) 4 mg IVPUSH Q8H PRN PRN Reason: Nausea and Vomiting Last Admin: 02/19/23 00:29 Dose: 4 mg Documented By: TRENA Pharmacy Consult (Consult Rx Etoh Phenob Im/Po) 1 each MISCELLANE ONCE PRN; Protocol PRN Reason: Consult order Pharmacy Consult (Consult Rx Perform Med Rec) 1 each MISCELLANE ONCE PRN PRN Reason: Consult order Phenobarbital (Phenobarbital 30 Mg Tablet) 30 mg PO BID [facility] Stop: 02/22/23 21:01 Last Admin: 02/22/23 08:25 Dose: 30 mg Documented By: TRACI Phenobarbital (Phenobarbital 15 Mg Tablet) 15 mg PO DAILY [facility] Stop: 02/24/23 09:01 Sodium Chloride (0.9 % Sodium Chloride Flush 3 Ml Syringe) 3 ml IVFLUSH QSHIFT [facility] Last Admin: 02/22/23 08:25 Dose: 3 ml Documented By: TRACI Thiamine HCl (Thiamine Hcl 100 Mg Tablet) 100 mg PO DAILY [facility] Last Admin: 02/22/23 08:25 Dose: 100 mg Documented By: TRACI Labs 02/22/23 06:30 02/22/23 06:30 Labs: Laboratory Results - last 24 hr 02/21/23 02/21/23 02/21/23 03:42 16:38 16:38 MCV MCH MCHC RDW Plt Count MPV Immature Gran % (Auto) Neut % (Auto) Lymph % (Auto) [place] % (Auto) Eos % (Auto) Baso % (Auto) Lymph # (Auto) [place] # (Auto) Eos # (Auto) Baso # (Auto) Abs Immat Gran (auto) Absolute Neuts (auto) Absolute Nucleated RBC Nucleated RBC % (auto) PT 12.0 INR 1.0 VBG pH VBG pCO2 VBG pO2 VBG HCO3 VBG O2 Saturation VBG Base Excess Anion Gap Estim Creat Clear Calc Estimated GFR Random Glucose Calcium Phosphorus 4.9 H Magnesium Total Bilirubin 0.7 Direct Bilirubin 0.3 AST 299 H ALT 114 H Alkaline Phosphatase 82 Total Creatine Kinase 71803 H 20475 H Troponin I High Sens Total Protein 7.9 Albumin 3.9 02/21/23 02/21/23 02/22/23 16:38 16:41 06:30 MCV 97.1 MCH 32.4 MCHC 33.3 RDW 16.0 Plt Count 159 L D MPV 10.5 Immature Gran % (Auto) 0.2 Neut % (Auto) 47.7 Lymph % (Auto) 31.3 [place] % (Auto) 17.1 H Eos % (Auto) 3.0 Baso % (Auto) 0.7 Lymph # (Auto) 1.3 [place] # (Auto) 0.7 Eos # (Auto) 0.1 Baso # (Auto) 0.0 Abs Immat Gran (auto) 0.01 Absolute Neuts (auto) 2.0 Absolute Nucleated RBC 0.000 Nucleated RBC % (auto) 0.0 PT INR VBG pH 7.45 H VBG pCO2 49 VBG pO2 47 VBG HCO3 34 H VBG O2 Saturation 74.0 VBG Base Excess 9.3 Anion Gap Estim Creat Clear Calc Estimated GFR Random Glucose Calcium Phosphorus Magnesium Total Bilirubin Direct Bilirubin AST ALT Alkaline Phosphatase Total Creatine Kinase Troponin I High Sens < 2.7 D Total Protein Albumin 02/22/23 02/22/23 06:30 06:30 MCV MCH MCHC RDW Plt Count MPV Immature Gran % (Auto) Neut % (Auto) Lymph % (Auto) [place] % (Auto) Eos % (Auto) Baso % (Auto) Lymph # (Auto) [place] # (Auto) Eos # (Auto) Baso # (Auto) Abs Immat Gran (auto) Absolute Neuts (auto) Absolute Nucleated RBC Nucleated RBC % (auto) PT INR VBG pH VBG pCO2 VBG pO2 VBG HCO3 VBG O2 Saturation VBG Base Excess Anion Gap 12 Estim Creat Clear Calc 158.0 Estimated GFR > 60 Random Glucose 98 Calcium 8.9 Phosphorus Magnesium 1.7 Total Bilirubin Direct Bilirubin AST ALT Alkaline Phosphatase Total Creatine Kinase 44037 H Troponin I High Sens Total Protein Albumin Assessment and Plan (1) Alcohol withdrawal seizure: Status: Acute (2) Hypomagnesemia: Status: Acute (3) Rhabdomyolysis: Status: Acute Plan d#5 37yo homeless M with AUD, ILR for hx syncope, brought in to ED after bystander called 911 for possible sz # rhabdomyolysis - suspected seizure-related - continue IV normal saline forced diuresis, continue to monitor CPK which is coming down slowly - Nephrology consult pending # EtOH withdrawal seizure with breakthrough withdrawal delirium - phenobarbital taper with extra IM dose today - seizure precautions - thiamine IV + PO # fall - jumped OOB 02/20/23 per camera monitor, landed on knees, no visible injury or pain; has sitter # hypoMg # hypoK - repleted, on maintenance MgO # transaminasemia - likely due to EtOH+ rhabdo; monitor LFTs; screen for HBV/HCV # thrombocytopenia - likely due to myelosuppressive effects of EtOH, resolving # normocytic anemia - likely due to EtOH, H+H stable chronic issues # OUD: Suboxone # VTE ppx: LMWH # dispo: TBD In my clinical judgment, the patient requires continued inpatient hospitalization for the following reasons: EtOH withdrawal delirium Time Spent With Patient Time: Total time managing care of this patient today __45__ minutes. Quality Stroke Does the patient have a stroke diagnosis?: No VTE Prior VTE?: No VTE Risk Level:: Medical - moderate - high VTE Device Contraindication: N/A - Device Ordered VTE Drug Contraindication: Treatment Not Indicated
[2023-02-22] MEDS: Haloperidol Lactate 5 MG/ML VIAL IM (12:16)
--- NOTE | 2023-02-22 19:24 | ECG_ITS ---
Test Reason : Shukri Pause Blood Pressure : / mmHG Vent. Rate : 078 BPM Atrial Rate : 078 BPM P-R Int : 168 ms QRS Dur : 086 ms QT Int : 384 ms P-R-T Axes : 016 023 034 degrees QTc Int : 437 ms Normal sinus rhythm with sinus arrhythmia Normal ECG When compared with ECG of 21-FEB-2023 16:13, No significant change was found Referred By: Isabela Liu Electronically Signed By:ANU ROBLES
--- NOTE | 2023-02-22 20:41 | PC.NURSE ---
191 pt has an episode of 3.79 pause , avril to 40s. 12 leads EKG done. notified. BP is 117/68 at that time. Pt denies any chest pain.
[2023-02-23 03:33] VITALS: BP 127/78; PULSE 71; RESP 20; TEMP 37.6; O2SAT 94
[2023-02-23] MEDS: Thiamine HCL 500 MG in 0.9 % Sodium Chloride 100 ML 210 MG IV (04:45)
[2023-02-23 07:42] LABS: Alanine Aminotransferase 79 U/L (0-40); Albumin Level 3.2 g/dL (3.5-5.0); Alkaline Phosphatase 54 U/L (39-117); Anion Gap 12 (12-20); Aspartate Amino Transferase 158 U/L (5-37); Blood Urea Nitrogen 7 mg/dL (9-16); Calcium 8.4 mg/dL (8.4-10.2); Carbon Dioxide 24 mmol/L (22-29); Chloride 106 mmol/L (96-108); Creatinine Clr Calc Pharmacy 174.3; Estimated Glomerular Filt Rate > 60; Glucose Random 78 mg/dL (60-115); Magnesium 1.7 mg/dL (1.6-2.6); Potassium 3.6 mmol/L (3.3-5.1); Sodium 138 mmol/L (135-145); Total Protein 6.3 g/dL (6.5-8.0)
[2023-02-23 07:52] LABS: HBc Num1 0.12 S/CO (0.00-0.79); HBsAGNum1 0.24 S/CO (0.00-0.99); Hepatitis B Core Antibody Nonreactive (Nonreactive); Hepatitis B Surface Antigen Negative (Negative); ~HepC Num1 0.14 S/CO (0.00-0.79); ~Hepatitis B Surface Antibody REACTIVE (Nonreactive); ~Hepatitis C Antibody Nonreactive (Nonreactive)
[2023-02-23 08:00] VITALS: BP 128/75; PULSE 72; RESP 20; TEMP 36.9; O2SAT 93
[2023-02-23] MEDS: Buprenorphine/Naloxone 8/2 mg FILM 1 FILM SUBLINGUAL (09:06)
[2023-02-23] MEDS: PHENobarbitaL 15 MG TABLET PO (09:07)
[2023-02-23] MEDS: Magnesium Oxide 400 MG TABLET PO ×2 (09:07→17:07)
[2023-02-23] MEDS: Thiamine HCL 100 MG TABLET PO (09:07)
[2023-02-23] MEDS: Enoxaparin Sodium 40 MG/0.4 ML SYRINGE SUBCUT (09:07)
[2023-02-23] MEDS: 0.9 % Sodium Chloride 1,000 ML 125 ML IVCONT ×3 (09:08→23:54)
[2023-02-23] MEDS: Folic Acid 1 MG TABLET PO (09:16)
--- NOTE | 2023-02-23 09:36 | P.CONCA_ITS ---
History of Present Illness History of Present Illness Date of Service: 02/23/23 Chief complaint: seizure Narrative: This is a cardiology consultation regarding pauses. Patient is known to us. He does have a history of pauses in the past. In the past, he has been admitted for syncope but he also has a history of alcohol abuse. Hence there was concern as to the syncope being from pauses versus alcohol. For this reason, implantable loop recorder has been placed in the past. However, he has not followed up actively as he does not come for appointments. Also he is homeless and hence the loop recorder is not followed remotely either. In fact may not even sure if the battery is still present as it has been a few years. Based on that interrogation from a couple years ago, he did have pauses and that was up to about 7 seconds or so per last note. Patient states that he is homeless. He continues to drink excessively on regular basis. He states he also uses all the drugs including heroin and cocaine others. He states he still passed out but generally in that happens in the context of alcohol and drugs. When specifically asking about passing out when he is not abusing alcohol, he states no. No other cardiac symptoms at this time. Current admissions because of seizure. He also had some mild rhabdomyolysis. Thought to be alcohol withdrawal seizures. Multiple other abnormalities as documented include hypo magnesemia, elevated LFTs, thrombocytopenia, all possibly from alcohol excess. Review of Systems Review of Systems: Yes all other systems are reviewed and are negative Constitutional: Constitutional: Reports as per HPI and Reports no additional constitutional complaints Eyes: Eyes: Reports as per HPI and Denies no additional eye complaints ENT: Denies system reviewed and no additional complaints, except as documented and Reports as per HPI Cardiovascular: Cardiovascular: Reports as per HPI, Reports no additional cardiovascular complaints, Denies acrocyanosis, Denies cool extremities, Denies chest pain, Denies leg edema, Denies lightheadedness, Denies palpitations and Denies dyspnea Respiratory: Respiratory: Reports as per HPI, Denies no additional respiratory complaints and Denies dyspnea Gastrointestinal: Gastrointestinal: Reports as per HPI and Denies no addition al gastrointestinal complaints Genitourinary: Genitourinary: Reports no additional male genitourinary complaints and Reports as per HPI Musculoskeletal: Musculoskeletal: Reports no additional musculoskeletal complaints and Reports as per HPI Integumentary/Breasts: Skin/Breast: Reports system reviewed and no additional complaints, except as docu Neurologic: Reports system reviewed and no additional complaints, except as documented and Reports as per HPI Psychiatric: Psychiatric: Reports no additional psychiatric complaints and Reports as per HPI Endocrine: Endocrine: Reports no additional endocrine complaints, Reports as per HPI and Denies palpitations Hematologic/Lymphatic: Hematologic/Lymphatic: Reports no additional hematologic/lymphatic complaints and Reports as per HPI Allergic/Immunologic: Allergic/Immunologic: Reports no additional allergic/immunologic complaints and Reports as per HPI PMFSH Past Medical History Medical History Alcohol intoxication Asthma Seizure Syncope Family History Family History Maternal Grandfather Heart disease Mother Diabetes HTN (hypertension) Father Diabetes Surgical History Surgical History History of mandibular surgery Social History Social History (Updated 02/18/23 @ 14:33 by AMADA Little) Household Members: None Housing: Homeless Alcohol intake: current Alcohol intake frequency: 3 or more drinks per day Alcohol type: beer and hard liquor Patient Tobacco Use Status: Former Tobacco user Cigarettes Per Day: 2 Years Smoked: 10 e-Cigarette/Vaping Use: Former Use Substance Use Type: Crack/Cocaine service: No Current occupational status: unemployed Meds Allergies Allergy/AdvReac Type Severity Reaction Status Date / Time shellfish derived Allergy Unknown HIVES Verified 02/18/23 16:56 [SHELLFISH DERIVED] SEAFOOD Allergy Unknown UNKNOWN Uncoded 02/18/23 16:56 Active Medications: Current Medications Acetaminophen (Acetaminophen 325 Mg Tablet) 650 mg PO Q6H PRN PRN Reason: Pain, Mild (Pain Scale 1-3) Last Admin: 02/21/23 20:05 Dose: 650 mg Buprenorphine/Naloxone (Buprenorphine/Naloxone 8/2 Mg Film) 1 film SUBLINGUAL DAILY [facility] Last Admin: 02/23/23 09:06 Dose: 1 film Docusate Sodium (Docusate Sodium 100 Mg Capsule) 100 mg PO DAILY PRN PRN Reason: Constipation Enoxaparin Sodium (Enoxaparin Sodium 40 Mg/0.4 Ml Syringe) 40 mg SUBCUT Q24H [facility] Last Admin: 02/23/23 09:07 Dose: 40 mg Folic Acid (Folic Acid 1 Mg Tablet) 1 mg PO DAILY [facility] Last Admin: 02/23/23 09:16 Dose: 1 mg Haloperidol Lactate (Haloperidol Lactate 5 Mg/Ml Vial) 5 mg IM ONCE PRN PRN Reason: agitation Last Admin: 02/22/23 12:16 Dose: 5 mg Hydroxyzine HCl (Hydroxyzine Hcl 25 Mg Tablet) 25 mg PO Q8H PRN PRN Reason: Anxiety Last Admin: 02/21/23 20:05 Dose: 25 mg Sodium Chloride (Ns) 1,000 mls @ 125 mls/hr IVCONT .Q8H [facility] Last Admin: 02/23/23 09:08 Dose: 125 mls/hr Magnesium Oxide (Magnesium Oxide 400 Mg Tablet) 400 mg PO BIDPC [facility] Last Admin: 02/23/23 09:07 Dose: 400 mg Ondansetron HCl (Ondansetron Hcl 4 Mg/2 Ml Vial) 4 mg IVPUSH Q8H PRN PRN Reason: Nausea and Vomiting Last Admin: 02/19/23 00:29 Dose: 4 mg Pharmacy Consult (Consult Rx Etoh Phenob Im/Po) 1 each MISCELLANE ONCE PRN; Protocol PRN Reason: Consult order Pharmacy Consult (Consult Rx Perform Med Rec) 1 each MISCELLANE ONCE PRN PRN Reason: Consult order Phenobarbital (Phenobarbital 15 Mg Tablet) 15 mg PO DAILY [facility] Stop: 02/24/23 09:01 Last Admin: 02/23/23 09:07 Dose: 15 mg Sodium Chloride (0.9 % Sodium Chloride Flush 3 Ml Syringe) 3 ml IVFLUSH QSHIFT [facility] Last Admin: 02/23/23 09:07 Dose: Not Given Thiamine HCl (Thiamine Hcl 100 Mg Tablet) 100 mg PO DAILY [facility] Last Admin: 02/23/23 09:07 Dose: 100 mg Home Medications Medication Instructions Recorded Confirmed Last Taken Type buprenorphine 8 mg-naloxone 2 mg 1 film sublingual DAILY 02/19/23 02/19/23 Unknown History sublingual film (Suboxone) Physical Exam Vital Signs: Vital Signs: Last Vital Signs Temp 98.4 F 02/23/23 08:00 Pulse 72 02/23/23 08:00 Resp 20 02/23/23 08:00 BP 128/75 02/23/23 08:00 Pulse Ox 93 02/23/23 08:00 O2 Del Method Room Air 05/11/23 08:00 BMI result Body Mass Index 24.4 Const: General: comfortable and no acute distress Orientat ion/consciousness: patient oriented x3 HEENT: Other: Unremarkable Head: Yes normal to inspection Neck: Neck: Yes normal visual inspection Chest: Chest palpation & inspection: normal inspection of the chest Resp: Auscultation: clear to auscultation bilaterally Cardio: Palpation: normal PMI Heart sounds: S1 normal heart sound present, S2 normal heart sound present, no gallops, no murmurs and no rubs GI: Palpation (GI): Soft to palpation Back/Spine/Pelvis: Other: unremarkable Skin: General skin exam: no rashes or lesions noted Neuro: General: patient oriented x3 Extrem: General: Yes normal to inspection Psych: Mental Status: mental status grossly normal Objective Labs and Meds 02/22/23 06:30 02/23/23 06:41 Lab results: Laboratory Results - last 24 hr 02/22/23 02/23/23 06:30 06:41 Sodium 138 Potassium 3.6 Chloride 106 Carbon Dioxide 24 Anion Gap 12 BUN 7 L Creatinine 0.58 Estim Creat Clear Calc 174.3 Estimated GFR > 60 Random Glucose 78 Calcium 8.4 Magnesium 1.7 Total Bilirubin 1.0 AST 158 H ALT 79 H Alkaline Phosphatase 54 Total Creatine Kinase 92751 H 4641 H Total Protein 6.3 L Albumin 3.2 L ECG Interpretation: In the EKG, underlying rhythm is sinus 78/Min; no significant ST-T changes and otherwise unremarkable. Normal [place] and corrected QT. Assessment and Plan (1) Sinus pause: Status: Acute (2) Seizure: Status: Acute (3) Syncope: Qualifiers: Syncope type: unspecified Qualified Code(s): R55 - Syncope and collapse Status: Acute (4) Rhabdomyolysis: Status: Acute Plan Baseline EKG does not show any conduction system disease. Upon review of telemetry, mostly sinus rhythm at rates well within the normal range. There is 1 instance of a pause of up to 3.8 seconds in the evening. Nonconducted P wave suggestive of transient heart block. Not clear what he was doing at that time. Overall, he does have evidence of pauses/heart block type findings on monitoring and this has been chronic going now for many years. However, these are probably not causing any active symptoms. As patient states that he generally passes out when he gets drunk and that actually be the main reason for these episodes. Any case, due to continued alcohol as well as drug use, homelessness and inability to clearly correlate pauses with syncope, do not recommend a permanent pacemaker at this time. In fact, he will be at high risk for getting the pacemaker infected. Will try to see if we can check the implantable loop recorder while he is here. However, not sure of the battery still valid as it has been few years. In a prior echocardiogram, cardiac function was normal. Discussed with AMADA Galdamez Time Spent With Patient Time: Total time managing care of this patient today 75 minutes. This includes time spent in review of chart, laboratory data, imaging studies, review of telemetry, counseling patient, discussion with hospitalist, RN, documentation, coordination of care. Procedures Date of Service Date of Service: 02/23/23
[2023-02-23 11:22] VITALS: BP 124/59; PULSE 72; RESP 20; TEMP 36.8; O2SAT 92
[2023-02-23 15:26] VITALS: BP 128/72; PULSE 84; RESP 18; TEMP 36.9; O2SAT 98
--- NOTE | 2023-02-23 15:35 | P.PNIM_ITS ---
Subjective Subjective Date of Service: 02/23/23 Interval History: seen and examined this morning follow up for rhabdo, etoh withdrawal denies hallucinations today, feeling better had 3+ second pause on monitor overnight Review of Systems Review of Systems: Yes all other systems are reviewed and are negative Constitutional Constitutional: Denies chills and Denies fever(s) ENT Ears, Nose, Mouth, and Throat: Denies dizziness Cardiovascular Cardiovascular: Denies chest pain, Denies palpitations and Denies dyspnea Respiratory Respiratory: Denies cough and Denies dyspnea Neurologic Neurologic: Denies dizziness Endocrine Endocrine: Denies palpitations Physical Exam Vital Signs: Vital Signs: Last Vital Signs Temp 98.5 F 02/23/23 15:26 Pulse 84 02/23/23 15:26 Resp 18 02/23/23 15:26 BP 128/72 02/23/23 15:26 Pulse Ox 98 02/23/23 15:26 O2 Del Method Room Air 02/23/23 15:26 BMI result Body Mass Index 24.4 Const: General: cooperative, comfortable, alert and awake Nutritional Appearance: average body habitus Orientation/consciousness: patient oriented x3 Resp: Effort & Inspection: normal respiratory effort, able to speak in complete sentences, no respiratory distress and no use of accessory muscles Cardio: Rate: regular rate Heart sounds: S1 normal heart sound present and S2 normal heart sound present GI: Other: midline abdominal scar with few scabs Inspection: No distended Palpation (GI): Soft to palpation and nontender Neuro: General: patient oriented x3 and CN's II-XI intact bilaterally Extrem: General: Yes no pedal edema Objective Data Active Medications Acetaminophen (Acetaminophen 325 Mg Tablet) 650 mg PO Q6H PRN PRN Reason: Pain, Mild (Pain Scale 1-3) Last Admin: 02/21/23 20:05 Dose: 650 mg Documented By: RAYO Buprenorphine/Naloxone (Buprenorphine/Naloxone 8/2 Mg Film) 1 film SUBLINGUAL DAILY [facility] Last Admin: 02/23/23 09:06 Dose: 1 film Documented By: TRACI Docusate Sodium (Docusate Sodium 100 Mg Capsule) 100 mg PO DAILY PRN PRN Reason: Constipation Enoxaparin Sodium (Enoxaparin Sodium 40 Mg/0.4 Ml Syringe) 40 mg SUBCUT Q24H [facility] Last Admin: 02/23/23 09:07 Dose: 40 mg Documented By: TRACI Folic Acid (Folic Acid 1 Mg Tablet) 1 mg PO DAILY [facility] Last Admin: 02/23/23 09:16 Dose: 1 mg Documented By: TRACI Haloperidol Lactate (Haloperidol Lactate 5 Mg/Ml Vial) 5 mg IM ONCE PRN PRN Reason: agitation Last Admin: 02/22/23 12:16 Dose: 5 mg Documented By: TRACI Hydroxyzine HCl (Hydroxyzine Hcl 25 Mg Tablet) 25 mg PO Q8H PRN PRN Reason: Anxiety Last Admin: 02/21/23 20:05 Dose: 25 mg Documented By: RAYO Sodium Chloride (Ns) 1,000 mls @ 125 mls/hr IVCONT .Q8H [facility] Last Admin: 02/23/23 09:08 Dose: 125 mls/hr Documented By: TRACI Magnesium Oxide (Magnesium Oxide 400 Mg Tablet) 400 mg PO BIDPC [facility] Last Admin: 02/23/23 09:07 Dose: 400 mg Documented By: TRACI Ondansetron HCl (Ondansetron Hcl 4 Mg/2 Ml Vial) 4 mg IVPUSH Q8H PRN PRN Reason: Nausea and Vomiting Last Admin: 02/19/23 00:29 Dose: 4 mg Documented By: TRENA Pharmacy Consult (Consult Rx Etoh Phenob Im/Po) 1 each MISCELLANE ONCE PRN; Protocol PRN Reason: Consult order Pharmacy Consult (Consult Rx Perform Med Rec) 1 each MISCELLANE ONCE PRN PRN Reason: Consult order Phenobarbital (Phenobarbital 15 Mg Tablet) 15 mg PO DAILY [facility] Stop: 02/24/23 09:01 Last Admin: 02/23/23 09:07 Dose: 15 mg Documented By: TRACI Sodium Chloride (0.9 % Sodium Chloride Flush 3 Ml Syringe) 3 ml IVFLUSH QSHIFT [facility] Last Admin: 02/23/23 09:07 Dose: Not Given Documented By: TRACI Non-Admin Reason: IV Running Thiamine HCl (Thiamine Hcl 100 Mg Tablet) 100 mg PO DAILY [facility] Last Admin: 02/23/23 09:07 Dose: 100 mg Documented By: TRACI Labs 02/22/23 06:30 02/23/23 06:41 Labs: Laboratory Results - last 24 hr 02/23/23 06:41 Anion Gap 12 Estim Creat Clear Calc 174.3 Estimated GFR > 60 Random Glucose 78 Calcium 8.4 Magnesium 1.7 Total Bilirubin 1.0 AST 158 H ALT 79 H Alkaline Phosphatase 54 Total Creatine Kinase 4641 H Total Protein 6.3 L Albumin 3.2 L Assessment and Plan (1) Alcohol withdrawal seizure: Status: Acute (2) Rhabdomyolysis: Status: Acute Plan 37yo homeless M with AUD, ILR for hx syncope, brought in to ED after bystander called 911 for possible sz #sinus pause had 3.7 second pause overnight has history of sinus pauses and syncope - has ILR but has missed follow up appointments with cardiology seenby cardiology - due to continued alcohol as well as drug use, homelessness and inability to clearly correlate pauses with syncope, do not recommend a permanent pacemaker at this time.? In fact, he will be at high risk for getting the pacemaker infected # rhabdomyolysis - suspected seizure-related - continue IV normal saline, continue to monitor CPK which is coming down slowly - Nephrology consult pending # EtOH withdrawal seizure with breakthrough withdrawal delirium - phenobarbital taper with extra IM dose 02/22 - seizure precautions - thiamine PO, s/p IV thiamine # fall - jumped OOB 02/20/23 per camera monitor, landed on knees, no visible injury or pain; has sitter -PT eval pending # hypoMg # hypoK - repleted, on maintenance MgO # transaminasemia - likely due to EtOH+ rhabdo; monitor LFTs; screen for HBV/HCV # thrombocytopenia - likely due to myelosuppressive effects of EtOH, resolving # normocytic anemia - likely due to EtOH, H+H stable chronic issues # OUD: Suboxone # VTE ppx: LMWH # dispo: TBD attending - dr. riddle In my clinical judgment, the patient requires continued inpatient hospitalization for the following reasons: EtOH withdrawal delirium Time Spent With Patient Time: Total time managing care of this patient today ____ minutes. Quality Stroke Does the patient have a stroke diagnosis?: No VTE Prior VTE?: No VTE Risk Level:: Medical - moderate - high VTE Device Contraindication: N/A - Device Ordered VTE Drug Contraindication: Treatment Not Indicated
[2023-02-23] MEDS: Acetaminophen 325 MG TABLET 650 MG PO (19:28)
[2023-02-23] MEDS: hydrOXYzine HCL 25 MG TABLET PO (19:28)
[2023-02-23 19:46] VITALS: BP 133/82; PULSE 72; RESP 18; TEMP 37; O2SAT 96
[2023-02-23 23:24] VITALS: BP 112/72; PULSE 65; RESP 20; TEMP 36.9; O2SAT 95
[2023-02-23] MEDS: 0.9 % Sodium Chloride Flush 3 ML SYRINGE IVFLUSH (23:55)
[2023-02-24 07:23] VITALS: BP 133/85; PULSE 66; RESP 20; TEMP 36.8; O2SAT 96
[2023-02-24] MEDS: Folic Acid 1 MG TABLET PO (08:34)
[2023-02-24] MEDS: Buprenorphine/Naloxone 8/2 mg FILM 1 FILM SUBLINGUAL (08:34)
[2023-02-24] MEDS: Enoxaparin Sodium 40 MG/0.4 ML SYRINGE SUBCUT (08:34)
[2023-02-24] MEDS: PHENobarbitaL 15 MG TABLET PO (08:35)
[2023-02-24] MEDS: Thiamine HCL 100 MG TABLET PO (08:35)
[2023-02-24] MEDS: Magnesium Oxide 400 MG TABLET PO (08:35)
[2023-02-24 09:26] LABS: HBS Num1 52.13 mIU/mL (0-7.99)
--- NOTE | 2023-02-24 11:01 | P.PNCA_ITS ---
Subjective Subjective Date of Service: 02/24/23 Interval history: Overall, patient states he is doing good. Today he is actually ambulating in floor and there is no issue. No further pauses on telemetry. Review of Systems Review of Systems Yes all other systems are reviewed and are negative Constitutional: Reports as per HPI and Reports no additional constitutional complaints Eyes: Reports as per HPI and Denies no additional eye complaints Denies system reviewed and no additional complaints, except as documented and Reports as per HPI Cardiovascular: Reports as per HPI, Reports no additional cardiovascular complaints, Denies acrocyanosis, Denies cool extremities, Denies chest pain, Denies leg edema, Denies lightheadedness, Denies palpitations and Denies dyspnea Respiratory: Reports as per HPI, Denies no additional respiratory complaints and Denies dyspnea Gastrointestinal: Reports as per HPI and Denies no additional gastrointestinal complaints Genitourinary: Reports no additional male genitourinary complaints and Reports as per HPI Musculoskeletal: Reports no additional musculoskeletal complaints and Reports as per HPI Skin/Breast: Reports system reviewed and no additional complaints, except as docu Reports system reviewed and no additional complaints, except as documented and Reports as per HPI Psychiatric: Reports no additional psychiatric complaints and Reports as per HPI Endocrine: Reports no additional endocrine complaints, Reports as per HPI and Denies palpitations Hematologic/Lymphatic: Reports no additional hematologic/lymphatic complaints and Reports as per HPI Allergic/Immunologic: Reports no additional allergic/immunologic complaints and Reports as per HPI Physical Exam Vital Signs: Last Vital Signs Temp 98.3 F 02/24/23 07:23 Pulse 66 02/24/23 07:23 Resp 20 02/24/23 07:23 BP 133/85 02/24/23 07:23 Pulse Ox 96 02/24/23 07:23 O2 Del Method Room Air 02/24/23 07:23 BMI result Body Mass Index 24.4 Const General: comfortable and no acute distress Orientation/consciousness: patient oriented x3 HEENT Other: Unremarkable Head: Yes normal to inspection Neck Neck: Yes normal visual inspection Chest Chest palpation & inspection: normal inspection of the chest Resp Auscultation: clear to auscultation bilaterally Cardio Palpation: normal PMI Heart sounds: S1 normal heart sound present, S2 normal heart sound present, no gallops, no murmurs and no rubs GI Palpation (GI): Soft to palpation Back/Spine/Pelvis Other: unremarkable Skin General skin exam: no rashes or lesions noted Neuro General: patient oriented x3 Extrem General: Yes normal to inspection Psych Mental Status: mental status grossly normal Objective Labs and Meds 02/22/23 06:30 02/23/23 06:41 Lab results: Laboratory Results - last 24 hr 02/23/23 02/24/23 06:41 06:38 Total Creatine Kinase 2285 H Hep Bs Antigen Negative Hep Bs Antibody REACTIVE Hep B Core Total Ab Nonreactive Hepatitis C Ab (EIA) Nonreactive Progress Note: A&P Assessment and plan (1) Sinus pause: Status: Acute (2) Seizure: Status: Acute (3) Syncope: Status: Acute (4) Rhabdomyolysis: Status: Acute Plan On review of telemetry, no further pauses. His INR was also interrogated. That does show occasional pauses. Longest duration is about 6 seconds. Other shorter pauses between 3 and 4 seconds. She does have few seconds of bradycardia at different times. Again discussed with him in great detail about syncopal episodes. It seems that the primarily coincide with times when he is drunk. He cannot definitively s charles that he has actually passed out when abstaining from alcohol. Considering homelessness, alcohol addiction, do not favor permanent pacemaker as utility will be low and there is a high risk of infection based on his social situation. With regard to the existing implantable loop recorder, we will try to arrange removal as an outpatient. However, patient does not have functioning phone line and not clear how to coordinate. Will discuss with office staff. Discussed with Shira Grace. Time Spent With Patient Time: Total time managing care of this patient today 50 minutes. This includes time spent in review of chart, laboratory data, imaging studies, review of telemetry, counseling patient, discussion with hospitalist, RN, documentation, coordination of care. Progress Note: Quality Stroke Does the patient have a stroke diagnosis?: No Procedures Date of Service Date of Service: 02/24/23
--- NOTE | 2023-02-24 11:23 | MHC.RECOVSUP ---
Met with pt in 478 to review recovery supports and CSS. Pt informs he would like CSS but is worried about self harm if he is alone. Nurse informed.
[2023-02-24 11:42] VITALS: BP 131/92; PULSE 70; RESP 20; TEMP 36.8; O2SAT 95
[2023-02-24] MEDS: hydrOXYzine HCL 25 MG TABLET PO (11:49)
--- NOTE | 2023-02-24 12:55 | MHC.CM.PN ---
PER HOSPITALIST PT TO BE MEDICALLY CLEARED FOR D/C, RECOVERY TEAM MET W/PT WHO REPORTED HE WAS INTERESTED IN CSS HOWEVER WORRIED ABOUT SELF HARM IF ALONE, ANTIC PT WILL NEED CARE TEAM TO CLEAR PT.
--- NOTE | 2023-02-24 13:36 | P.PNIM_ITS ---
Subjective Subjective Date of Service: 02/24/23 Interval History: seen and examined this morning follow up for etoh withdrawal feeling well this morning, no further hallucinations concerned about leaving the hospital due to risk of using drugs/drinking alcohol again Review of Systems Review of Systems: Yes all other systems are reviewed and are negative Constitutional Constitutional: Denies chills and Denies fever(s) ENT Ears, Nose, Mouth, and Throat: Denies dizziness Cardiovascular Cardiovascular: Denies chest pain, Denies palpitations and Denies dyspnea Respiratory Respiratory: Denies cough and Denies dyspnea Gastrointestinal Gastrointestinal: Denies abdominal pain, Denies diarrhea, Denies nausea and Denies vomiting Neurologic Neurologic: Denies dizziness Endocrine Endocrine: Denies palpitations Physical Exam Vital Signs: Vital Signs: Last Vital Signs Temp 98.2 F 02/24/23 11:42 Pulse 70 02/24/23 11:42 Resp 20 02/24/23 11:42 BP 131/92 H 02/24/23 11:42 Pulse Ox 95 02/24/23 11:42 O2 Del Method Room Air 02/24/23 11:42 BMI result Body Mass Index 24.4 Const: General: cooperative, comfortable, no acute distress, alert, awake and poor hygiene Nutritional Appearance: average body habitus Or ientation/consciousness: patient oriented x3 Resp: Effort & Inspection: normal respiratory effort, able to speak in complete sentences, no respiratory distress and no use of accessory muscles Cardio: Rate: regular rate Heart sounds: S1 normal heart sound present and S2 normal heart sound present GI: Other: midline abdominal scar with few scabs Inspection: No distended Palpation (GI): Soft to palpation and nontender Neuro: General: patient oriented x3 and CN's II-XI intact bilaterally Extrem: General: Yes no pedal edema Objective Data Active Medications Acetaminophen (Acetaminophen 325 Mg Tablet) 650 mg PO Q6H PRN PRN Reason: Pain, Mild (Pain Scale 1-3) Last Admin: 02/23/23 19:28 Dose: 650 mg Documented By: RAYO Buprenorphine/Naloxone (Buprenorphine/Naloxone 8/2 Mg Film) 1 film SUBLINGUAL DAILY ERIS Last Admin: 02/24/23 08:34 Dose: 1 film Documented By: TRACI Docusate Sodium (Docusate Sodium 100 Mg Capsule) 100 mg PO DAILY PRN PRN Reason: Constipation Enoxaparin Sodium (Enoxaparin Sodium 40 Mg/0.4 Ml Syringe) 40 mg SUBCUT Q24H [facility] Last Admin: 02/24/23 08:34 Dose: 40 mg Documented By: TRACI Folic Acid (Folic Acid 1 Mg Tablet) 1 mg PO DAILY [facility] Last Admin: 02/24/23 08:34 Dose: 1 mg Documented By: TRACI Haloperidol Lactate (Haloperidol Lactate 5 Mg/Ml Vial) 5 mg IM ONCE PRN PRN Reason: agitation Last Admin: 02/22/23 12:16 Dose: 5 mg Documented By: TRACI Hydroxyzine HCl (Hydroxyzine Hcl 25 Mg Tablet) 25 mg PO Q8H PRN PRN Reason: Anxiety Last Admin: 02/24/23 11:49 Dose: 25 mg Documented By: SHIRLEY Magnesium Oxide (Magnesium Oxide 400 Mg Tablet) 400 mg PO BIDPC [facility] Last Admin: 02/24/23 08:35 Dose: 400 mg Documented By: TRACI Ondansetron HCl (Ondansetron Hcl 4 Mg/2 Ml Vial) 4 mg IVPUSH Q8H PRN PRN Reason: Nausea and Vomiting Last Admin: 02/19/23 00:29 Dose: 4 mg Documented By: TRENA Pharmacy Consult (Consult Rx Etoh Phenob Im/Po) 1 each MISCELLANE ONCE PRN; Protocol PRN Reason: Consult order Pharmacy Consult (Consult Rx Perform Med Rec) 1 each MISCELLANE ONCE PRN PRN Reason: Consult order Sodium Chloride (0.9 % Sodium Chloride Flush 3 Ml Syringe) 3 ml IVFLUSH QSHIFT [facility] Last Admin: 02/24/23 08:45 Dose: Not Given Documented By: TRACI Non-Admin Reason: IV Running Thiamine HCl (Thiamine Hcl 100 Mg Tablet) 100 mg PO DAILY [facility] Last Admin: 02/24/23 08:35 Dose: 100 mg Documented By: TRACI Labs 02/22/23 06:30 02/23/23 06:41 Labs: Laboratory Results - last 24 hr 02/23/23 02/24/23 06:41 06:38 Total Creatine Kinase 2285 H Hep Bs Antigen Negative Hep Bs Antibody REACTIVE Hep B Core Total Ab Nonreactive Hepatitis C Ab (EIA) Nonreactive Assessment and Plan (1) Alcohol withdrawal seizure: Status: Acute (2) Rhabdomyolysis: Status: Acute Plan 37yo homeless M with AUD, ILR for hx syncope, brought in to ED after bystander called 911 for possible sz #sinus pause had 3.7 second pause overnight has history of sinus pauses and syncope - has ILR but has missed follow up appointments with cardiology seen by cardiology - due to continued alcohol as well as drug use, homelessness and inability to clearly correlate pauses with syncope, do not recommend a permanent pacemaker at this time given outpatient follow up appointment with cardiology to remove ILR # rhabdomyolysis - suspected seizure-related. improved with IVF # EtOH withdrawal seizure with breakthrough withdrawal delirium improving, no further hallucinations - phenobarbital taper with extra IM dose 02/22 - seizure precautions - thiamine PO, s/p IV thiamine seen by recovery team - documented pt concern for self harm when alone - care team consult pending # fall - jumped OOB 02/20/23 per camera monitor, landed on knees, no visible injury or pain; has sitter ambulating without difficultly # hypoMg # hypoK - repleted, on maintenance MgO # transaminasemia - likely due to EtOH+ rhabdo; monitor LFTs; screen for HBV/HCV negative # thrombocytopenia - likely due to myelosuppressive effects of EtOH # normocytic anemia - likely due to EtOH, H+H stable chronic issues # OUD: Suboxone # VTE ppx: LMWH # dispo: TBD attending - dr. riddle In my clinical judgment, the patient requires continued inpatient hospitalization for the following reasons: care team evaluation Time Spent With Patient Time: Total time managing care of this patient today ____ minutes. Quality Stroke Does the patient have a stroke diagnosis?: No VTE Prior VTE?: No VTE Risk Level:: Medical - moderate - high VTE Device Contraindication: N/A - Device Ordered VTE Drug Contraindication: Treatment Not Indicated
--- NOTE | 2023-02-24 14:25 | MHC.RECOVSUP ---
Clarified with pt he did not intend to harm himself, his concerns were about falling down or having an accident. Pt provided list of [facility] facilities that referrals were sent to for him to follow up from the community.
--- NOTE | 2023-02-24 15:17 | MHC.CM.PN ---
Pt medically cleared for d/c, pt cont's to decline skilled nursing placement and Lyft transport, pt given bus passes.
--- NOTE | 2023-02-24 15:26 | P.DS_ITS ---
DS: Providers Provider Date of Service: 02/24/23 Date of admission: 02/18/23 14:20 Date of discharge: 02/24/23 Primary care physician: Inge Longo MD Consults: 02/18/23 14:36 Consult to Care Team Routine Comment: Reason for consultation: alcohol use disorder 02/20/23 10:08 Consult for Sitter Routine Reason for consultation: impulsive Has provider been notified: No 02/21/23 15:58 Consult to Nephrology Routine Consulting Provider: Bill Villanueva Reason for consultation: CPK trending up Has provider been notified: No 02/23/23 08:01 Consult to Cardiology Routine Consulting Provider: [facility] Cardiovascular Services Reason for consultation: intermittent bradycardia, 3 sec pause Has provider been notified: No 02/24/23 07:57 Addiction Medicine Routine Consulting Provider: Addiction Covering Reason for consultation: polysubstance abuse Has provider been notified: No Attending physician on discharge: Montez Yanes Discharging clinician: Shira Grace DS: Diagnosis Discharge Diagnosis (1) Alcohol withdrawal seizure: Status: Acute (2) Rhabdomyolysis: Status: Acute DS: Summary Hospital Course Hospital Course: From H&P on day of admission This is a 37-year-old male with history of alcohol abuse who was brought to the emergency department after concern over the seizure.? He was brought in by ambulance after a bystander called 911.? There was no witnessed seizure activity by paramedics or in the ED. the patient states that he was vomiting overnight but does not remember anything after waking up this morning.? He reports drinking 4 -20 oz beers and multiple nips daily with his last drink estimated to be last night around 7 pm.? He has a history of alcohol withdrawal seizures.? He denies use of any other drugs.? He denies any chest pain, shortness of breath, fever, abdominal pain.? In the emergency department CPK was 1277, LFTs mildly elevated.? Tox screen negative, alcohol level <10. He received a dose of IV lorazepam as well as IV fluid.? The emergency department requested admission for presumed alcohol withdrawal seizure. sinus pause. had 3.7 second pause at night. has history of sinus pauses and syncope several years ago for which ILR was placed but has missed follow up appointments with cardiology. seen by cardiology - due to continued alcohol as well as drug use, homelessness and inability to clearly correlate pauses with syncope, do not recommend a permanent pacemaker at this time given outpatient follow up appointment with cardiology to remove ILR rhabdomyolysis suspected seizure-related. improved with IVF EtOH withdrawal seizure with breakthrough withdrawal delirium Treated with phenobarbital protocol. no further hallucinations. continue thiamine and folic acid supplementation. seen by recovery team and given resources for sobriety. patient will call [facility] for rehab bed and follow up. recovery team initially documented pt had concern for self harm but that was clarified - patient concerned about having hallucinations again. He was reassured that the hallucinations were related to alcohol withdrawal and should not recur if he does not return to drinking. He denies any suicidal, homicidal ideation and he denies any concern over self-harm. hypoMg/hypoK. repleted transaminasemia likely due to EtOH+ rhabdo; monitor LFTs; screen for HBV/HCV negative. recommend outpatient follow up LFTs thrombocytopenia likely due to myelosuppressive effects of EtOH. recommend outpatient follow up with pcp Time Spent with Patient Time attestation: Total time managing care of this patient today ____ minutes. Discharge coordination time: Greater than 30 minutes Quality: Safe Use of Opioids Does Pt have an Active Cancer Diagnosis on the Problem List?: No Quality: Stroke Does the patient have a stroke diagnosis?: No Physical Exam Vital Signs: Vital Signs: Last Vital Signs Temp 98.2 F 02/24/23 11:42 Pulse 70 02/24/23 11:42 Resp 20 02/24/23 11:42 BP 131/92 H 02/24/23 11:42 Pulse Ox 95 02/24/23 11:42 O2 Del Method Room Air 02/24/23 11:42 BMI result Body Mass Index 24.4 Const: General: cooperative, comfortable, no acute distress, alert and awake Nutritional Appearance: average body habitus Orientation/consciousness: patient oriented x3 Resp: Effort & Inspection: normal respiratory effort, able to speak in complete sentences, no respiratory distress and no use of accessory muscles Cardio: Rate: regular rate Heart sounds: S1 normal heart sound present and S2 normal heart sound present GI: Other: midline abdominal scar with few scabs Inspection: No distended Palpation (GI): Soft to palpation and nontender Neuro: General: patient oriented x3 and CN's II-XI intact bilaterally Extrem: General: Yes no pedal edema DS: Data Data Completed and Pending Labs on day of discharge: Laboratory Results - last 24 hr 02/23/23 02/24/23 06:41 06:38 Total Creatine Kinase 2285 H Hep Bs Antigen Negative Hep Bs Antibody REACTIVE Hep B Core Total Ab Nonreactive Hepatitis C Ab (EIA) Nonreactive Discharge Plan Discharge Anticipated Discharge Date/Time: 02/24/23 15:26 Patient Disposition: Home, Self-Care Discharge Diagnosis: alcohol withdrawal with seizure sinus pause Referrals: Inge Longo MD [Primary Care Provider] - 1 Week Jose Luis Richmond MD [Physician] - 1 Week Discharge Medications: New magnesium oxide 400 mg (241.3 mg magnesium) Tablet 400 mg PO BIDPC 30 Days Qty: 60 0RF folic acid 1 mg Tablet 1 mg PO DAILY 30 Days Qty: 30 0RF thiamine mononitrate (vit B1) 100 mg Tablet 100 mg PO DAILY 30 Days Qty: 30 0RF Continued buprenorphine-naloxone [Suboxone] 8-2 mg film 1 film sublingual DAILY Discharge Orders: Discharge Order (Routine); Ordered 02/24/23 Ordered By: Shira Grace Activity on Discharge: As tolerated Stand Alone Forms: Patient Portal Discharge page Care Plan Goals: stay sober from alcohol and drugs Health Concerns: alcohol withdrawal sinus pause substance abuse Plan of Treatment: recommend to avoid the use of drugs and alcohol take all medications as prescribed Follow-up with cardiology as scheduled on March 06 at 4pm resources given for [facility] facilities that referrals were sent to recommend call to schedule follow up with PCP Assessment: see discharge summary
[2023-02-24 15:50] VITALS: BP 141/83; PULSE 98; RESP 18; TEMP 37.1; O2SAT 99
== END 2023-02-24 16:44 | disposition home or self-care (01) | DRG 351 ==
LOC: HO.ED 14:06 → HO.EDOVER 14:30 → HO.IMC 20:15
PROVIDERS: Family Medicine; Nurse Practitioner Acute Care; Admitting Provider Physician Assistant Medical; Emergency Provider Emergency Medicine; PCP Internal Medicine; Visit Provider Physician Assistant Medical
DX: M62.82 Rhabdomyolysis (principal); F10.131 Alcohol abuse with withdrawal delirium; I49.5 Sick sinus syndrome; F11.20 Opioid dependence, uncomplicated; K70.9 Alcoholic liver disease, unspecified; D53.9 Nutritional anemia, unspecified; R56.9 Unspecified convulsions; E83.42 Hypomagnesemia; E87.6 Hypokalemia; D69.59 Other secondary thrombocytopenia; Z59.02 Unsheltered homelessness; Z87.891 Personal history of nicotine dependence; Z79.899 Other long term (current) drug therapy
CPT/HCPCS: 36415; 70450; 72125; 80048; 80053; 80076; 80307; 82550; 82803; 83735; 84100; 84484; 85025; 85610; 86704; 86706; 86803; 87340; 93005; 99285; J1650; J2060; J2405; J2560; J3411; J3475

== ENCOUNTER 2023-04-07 00:26 | Emergency (ER) | payer MEDICAID, SELFPAY ==
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
[2023-04-07 00:47] VITALS: BP 117/77; PULSE 77; RESP 16; TEMP 36.7; O2SAT 98; BMI 22.1
[2023-04-07 01:17] LABS: Hematocrit 34.6 % (42.0-52.0); Hemoglobin 11.6 g/dl (14.0-18.0); Mean Corpuscular HGB Conc 33.5 g/dl (31.0-36.0); Mean Corpuscular Hemoglobin 32.8 pg (27.0-33.0); Mean Corpuscular Volume 97.7 fL (80.0-98.0); Mean Platelet Volume 10.5 fL (9.4-12.4); Platelet Count 127 X10*3/uL (160-400); Red Blood Count 3.54 X10*6/uL (4.60-5.80); Red Cell Distribution Width 15.2 % (11.0-16.0)
[2023-04-07 01:18] LABS: White Blood Count 2.5 X10*3/uL (4.8-10.8)
[2023-04-07] MEDS: Morphine Sulfate 4 MG/ML CARTRIDGE IVPUSH (02:02)
[2023-04-07] MEDS: 0.9 % Sodium Chloride 1,000 ML 999 ML IV (02:03)
[2023-04-07 02:20] LABS: Alanine Aminotransferase 31 U/L (0-40); Albumin Level 4.1 g/dL (3.5-5.0); Alkaline Phosphatase 90 U/L (39-117); Anion Gap 16 (12-20); Aspartate Amino Transferase 83 U/L (5-37); Bilirubin Total 0.6 mg/dL (0.0-1.0); Blood Urea Nitrogen 3 mg/dL (9-16); Calcium 8.4 mg/dL (8.4-10.2); Carbon Dioxide 27 mmol/L (22-29); Chloride 105 mmol/L (96-108); Creatinine Clr Calc Pharmacy 147.4; Estimated Glomerular Filt Rate > 60; Glucose Random 97 mg/dL (60-115); Lipase 60 U/L (8-78); Sodium 145 mmol/L (135-145); Total Protein 8.5 g/dL (6.5-8.0)
[2023-04-07] MEDS: iohexoL 350 MG/ML 100 ML INFUS..BTL 85 ML IV (02:37)
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
[2023-04-07 03:46] VITALS: BP 124/88; PULSE 79; RESP 14; O2SAT 100
[2023-04-07] MEDS: Lidocaine HCl Viscous 2 % 15 ML SOLUTION 10 ML PO (04:16)
[2023-04-07] MEDS: PHENobarb/Hyoscy/Atropine/Scop 10 ML ELIXIR PO (04:17)
[2023-04-07] MEDS: Magnesium Hydrox/Alum Hydrox 30 ML ORAL.SUSP PO (04:17)
== END 2023-04-07 04:31 | disposition home or self-care (01) ==
PROVIDERS: Emergency Provider Emergency Medicine Emergency Medical Services; PCP Internal Medicine
DX: K29.20 Alcoholic gastritis without bleeding (principal); D61.818 Other pancytopenia; R10.12 Left upper quadrant pain; F11.10 Opioid abuse, uncomplicated; Z59.00 Homelessness unspecified; Z79.899 Other long term (current) drug therapy; Z87.891 Personal history of nicotine dependence
CPT/HCPCS: 36415; 74177; 80053; 83690; 85027; 96361; 96374; 99284; 99285; J2270; Q9967

== ENCOUNTER 2023-05-25 19:14 | Emergency (ER) | payer MEDICAID, SELFPAY ==
[2023-05-25 20:55] VITALS: BP 133/87; PULSE 94; RESP 18; TEMP 36.7; O2SAT 95; BMI 22.6
[2023-05-25 22:01] LABS: Basophils Percent Auto 1.2 % (0-2); Hematocrit 34.4 % (42.0-52.0); Hemoglobin 11.7 g/dl (14.0-18.0); PLT CLUMP 1; SCAN SMEAR FLAG 1
[2023-05-25 22:03] LABS: Eosinophils Absolute Auto 0.1 X10*3/uL (0.0-0.4); Imm Gran Abs Auto 0.01 X10*3/uL (0.00-0.03); Imm Gran Pct Auto 0.4 % (0.0-0.4); Lymphocytes Absolute Auto 1.5 X10*3/uL (1.2-4.9); Lymphocytes Percent Auto 58.4 % (20-40); MANUAL DIFF FLAG SCAN; Mean Corpuscular Hemoglobin 33.1 pg (27.0-33.0); Mean Corpuscular Volume 97.2 fL (80.0-98.0); Mean Platelet Volume 10.4 fL (9.4-12.4); Monocytes Absolute Auto 0.3 X10*3/uL (0.1-1.2); Monocytes Percent Auto 12.8 % (2-11); Neutrophils Absolute Auto 0.6 x10*3/uL (2.0-8.3); Neutrophils Percent Auto 25.2 % (45-73); Red Blood Count 3.54 X10*6/uL (4.60-5.80); Red Cell Distribution Width 14.3 % (11.0-16.0)
[2023-05-25 22:04] LABS: Platelet Count 98 X10*3/uL (160-400); White Blood Count 2.5 X10*3/uL (4.8-10.8)
[2023-05-25 22:18] LABS: Alanine Aminotransferase 50 U/L (0-40); Albumin Level 3.9 g/dL (3.5-5.0); Alkaline Phosphatase 98 U/L (39-117); Anion Gap 14 (12-20); Aspartate Amino Transferase 136 U/L (5-37); Bilirubin Direct 0.2 mg/dL (0.0-0.5); Bilirubin Total 0.4 mg/dL (0.0-1.0); Blood Urea Nitrogen 5 mg/dL (9-16); Calcium 8.8 mg/dL (8.4-10.2); Carbon Dioxide 28 mmol/L (22-29); Chloride 105 mmol/L (96-108); Creatinine Clr Calc Pharmacy 134.1; Estimated Glomerular Filt Rate > 60; Glucose Random 94 mg/dL (60-115); Potassium 3.4 mmol/L (3.3-5.1); Sodium 144 mmol/L (135-145); Total Protein 8.6 g/dL (6.5-8.0)
[2023-05-25 22:19] LABS: SLIDE REVIEW VERIFIED
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
== END 2023-05-25 23:14 | disposition home or self-care (01) ==
PROVIDERS: Emergency Provider Emergency Medicine Emergency Medical Services
DX: K43.9 Ventral hernia without obstruction or gangrene (principal); Z79.899 Other long term (current) drug therapy; Z87.891 Personal history of nicotine dependence
CPT/HCPCS: 36415; 80053; 82248; 85025; 99282; 99283

== ENCOUNTER 2023-07-08 08:45 | Inpatient (IN) | payer MEDICAID, SELFPAY ==
[2023-07-08] VITALS (10 sets, daily range): BP systolic 127–149; BP diastolic 68–89; PULSE 68–104; RESP 13–20; TEMP 37–37.7; O2SAT 93–100; BMI 25.1
--- NOTE | ~2023-07-08 | XR_ITS ---
EXAMINATION: XR CHEST CLINICAL INFORMATION: Seizure COMPARISON: Prior chest x-ray November 2022 TECHNIQUE: Frontal view of the chest was obtained. FINDINGS: No significant abnormality is noted involving the heart, lungs, mediastinum, bony thorax or soft tissues. Cardiac device projecting over the left chest. Old healed right clavicular fracture. XR/XR chest 1V IMPRESSION: No radiographic evidence of acute cardiopulmonary disease.
--- NOTE | ~2023-07-08 | CT_ITS ---
CT head/brain wo IV con CLINICAL INFORMATION: Reason for Exam Seizure, rule out skull fracture, bleed, mass effe COMPARISON: Prior CT 02/18/2023 TECHNIQUE: Department standard protocol. This CT examination was performed using dose optimization techniques as appropriate, variously including the following: *Automated exposure control *Adjustment of mA and/or kV according to patient size (this includes techniques or standardized protocols for targeted exams where dose is matched to indication/reason for exam; i.e. extremities or head) *Use of iterative reconstruction technique DLP: 723 mGy-cm FINDINGS: CEREBRAL HEMISPHERES: There is an area of encephalomalacia in the right frontoparietal region might be a sequela of an old brain injury unchanged. BRAIN PARENCHYMA: Normal thomson-white matter differentiation. SUBDURAL SPACE: No bleed. BASAL GANGLIA AND PINEAL GLAND: Unremarkable VENTRICLES: Symmetric and normal in size. CEREBELLUM AND BRAINSTEM: No space-occupying mass, hemorrhage or acute infarct. CEREBELLOPONTINE ANGLES: No lesion found. ORBITS: No intraorbital mass. VESSELS: Unremarkable SKULL BASE: Unremarkable INCLUDED SINUSES AT SKULL BASE: Mucosal thickening and paranasal sinuses. Mastoid air cells are clear. SKULL AND SKIN: No fracture or bone lesion found. CT/CT head/brain wo IV con IMPRESSION: * No CT evidence of intracranial space-occupying mass, bleed or infarct. * There is an area of encephalomalacia in the right frontoparietal region might be a sequela of an old brain injury unchanged. * Mucosal thickening of paranasal sinuses.
[2023-07-08] MEDS: LORazepam 2 MG/ML VIAL IVPUSH (09:00)
[2023-07-08] MEDS: 0.9 % Sodium Chloride 1,000 ML 999 ML IV ×2 (09:15→11:12)
[2023-07-08 09:23] LABS: MANUAL DIFF FLAG NO
[2023-07-08 09:27] LABS: Basophils Percent Auto 0.6 % (0-2); Eosinophils Absolute Auto 0.1 X10*3/uL (0.0-0.4); Eosinophils Percent Auto 0.9 % (0-4); Hematocrit 34.2 % (42.0-52.0); Hemoglobin 11.1 g/dl (14.0-18.0); Imm Gran Abs Auto 0.08 X10*3/uL (0.00-0.03); Imm Gran Pct Auto 1.3 % (0.0-0.4); Mean Corpuscular HGB Conc 32.5 g/dl (31.0-36.0); Mean Corpuscular Hemoglobin 33.2 pg (27.0-33.0); Mean Corpuscular Volume 102.4 fL (80.0-98.0); Mean Platelet Volume 10.1 fL (9.4-12.4); Monocytes Absolute Auto 0.9 X10*3/uL (0.1-1.2); Monocytes Percent Auto 14.7 % (2-11); Neutrophils Absolute Auto 4.3 x10*3/uL (2.0-8.3); Neutrophils Percent Auto 67.5 % (45-73); Red Blood Count 3.34 X10*6/uL (4.60-5.80); Red Cell Distribution Width 15.3 % (11.0-16.0); White Blood Count 6.3 X10*3/uL (4.8-10.8)
[2023-07-08 09:37] LABS: Ethanol 76 mg/dL; Platelet Count 81 X10*3/uL (160-400)
[2023-07-08 09:38] LABS: Prothrombin Time 12.4 SEC (11.1-13.3)
[2023-07-08 09:41] LABS: Partial Thromboplastin Time 28.4 SEC (26.0-36.4)
--- NOTE | 2023-07-08 09:41 | MHC.EDTECH ---
Patient's clothes are in the washer 0930am. SG
[2023-07-08 09:42] LABS: COVID-19 Test Negative (Negative); IDNOW Serial# 08D9AD1C
[2023-07-08 09:47] LABS: Alanine Aminotransferase 66 U/L (0-40); Albumin Level 3.7 g/dL (3.5-5.0); Alkaline Phosphatase 111 U/L (39-117); Anion Gap 29 (12-20); Aspartate Amino Transferase 135 U/L (5-37); Bilirubin Total 0.5 mg/dL (0.0-1.0); Blood Urea Nitrogen 6 mg/dL (9-16); Calcium 8.2 mg/dL (8.4-10.2); Carbon Dioxide 14 mmol/L (22-29); Chloride 101 mmol/L (96-108); Creatinine Clr Calc Pharmacy 133.5; Estimated Glomerular Filt Rate > 60; Glucose Random 128 mg/dL (60-115); Lipase 134 U/L (8-78); Potassium 3.2 mmol/L (3.3-5.1); Sodium 141 mmol/L (135-145); Total Protein 8.2 g/dL (6.5-8.0)
--- NOTE | 2023-07-08 10:48 | ED_ITS ---
HPI - Seizure General Chief Complaint: Seizure Stated Complaint: SZ Time Seen by Provider: 07/08/23 08:55 Source: patient Mode of arrival: EMS Limitations: no limitations History of Present Illness HPI Narrative: 38-year-old male with history of alcohol withdrawal, alcohol withdrawal seizures, sleep apnea, cocaine use disorder who presents emergency department for evaluation of a seizure. The patient states that he had 1 seizure that was unwitnessed and apparently had a seizure that was witnessed by his brother who called an ambulance. When the patient got here to the emergency department he was tremulous, he was awake and able to talk with any had a tonic clonic seizure which lasted approximately 1 minute with a postictal period of 20 minutes. Patient states that he drinks 6 is tall beers per day and at least 6 nips of vodka per day. His last drink was last night. The patient states that he is homeless and is living in a homeless camp with his brother. He denied fever, chills, chest pain, shortness of breath, nausea, vomiting. Patient states that he did use intranasal cocaine yesterday. Seizure History: Yes Related Data Home Medications Medication Instructions Recorded Confirmed No Known Home Meds 07/08/23 07/08/23 Allergies Allergy/AdvReac Type Severity Reaction Status Date / Time shellfish derived Allergy Unknown HIVES Verified 07/08/23 08:58 [SHELLFISH DERIVED] SEAFOOD Allergy Unknown UNKNOWN Uncoded 07/08/23 08:58 Review of Systems 2 Review of Systems: Yes all other systems are reviewed and are negative [facility] Past Medical History [facility] Narrative: Past medical history: Reviewed below. Patient states he also has a pacemaker that was placed at [facility]. Social history: Patient is homeless and is living in a homeless camp. He denies tobacco use but states he has a former smoker. He drinks 6 a tall beers per day and 6-8 nips of vodka per day. He does use intranasal cocaine and last use intranasal cocaine yesterday. Medical History Alcohol intoxication Syncope Asthma Surgical History History of mandibular surgery Family History Family History Maternal Grandfather Heart disease Mother Diabetes HTN (hypertension) Father Diabetes Social History Social History Household Members: None Housing: Homeless Alcohol intake: current Alcohol intake frequency: a few times a week Alcohol type: beer and wine Patient Tobacco Use Status: Former Tobacco user Cigarettes Per Day: 2 Years Smoked: 10 Smoked in Last 30 Days: No e-Cigarette/Vaping Use: Former Use Substance Use Type: Crack/Cocaine Advance Directives: No service: No Current occupational status: unemployed Physical Exam 2 Vital Signs: Vital Signs: Last Vital Signs Temp 99.3 F 07/08/23 10:57 Pulse 83 07/08/23 13:58 Resp 16 07/08/23 13:58 BP 127/82 07/08/23 13:58 Pulse Ox 100 07/08/23 13:58 O2 Del Method Room Air 07/08/23 13:58 BMI result Body Mass Index 25.1 Vital signs were normal. Exam: General: Patient is awake, alert, he is tremulous, answers all questions appropriately Head: Normocephalic, atraumatic EENT: PERRL, Lids normal, sclera normal, conjunctiva normal, nose normal , ears normal, throat without erythema or exudates Neck: Supple, no adenopathy, trachea midline and nontender Lung: breath sounds symmetric, no wheezing, rales or rhonchi Chest: symmetric movement, nontender Heart: regular rate and rhythm, normal S1, S2 no murmurs or rubs Abdomen: soft, non-tender, nondistended, normal bowel sounds Back: no vertebral tenderness, no CVAT Extremities: no deformities, moves all extremities symmetrically Skin: Patient has a chronic appearing skin rash to his pretibial areas on both shins which has and psoriasis like appearance Neuro: Awake, alert, oriented, normal speech, cranial nerves intact, moves all extremities symmetrically, patient has diffuse symmetric tremors Psych: Pleasant, cooperative Medications Administered Generic Name Dose Route Start Last Admin Trade Name Freq PRN Reason Stop Dose Admin Phenobarbital Sodium 318 mg 07/08/23 14:30 07/08/23 14:18 Phenobarbital Sodium 130 Mg/Ml Vial Im Q3hx2 IM 07/08/23 17:31 318 mg Q3H ERIS Administration Protocol Discontinued Medications Generic Name Dose Route Start Last Admin Trade Name Freq PRN Reason Stop Dose Admin Folic Acid 1 mg 07/08/23 11:02 07/08/23 11:21 Folic Acid 1 Mg Tablet PO 07/08/23 11:03 1 mg ONCE ONE Administration Sodium Chloride 1,000 mls @ 999 mls/hr 07/08/23 08:55 07/08/23 11:12 Ns IV 07/08/23 09:55 Infused .Q1H1M STA Infusion Sodium Chloride 1,000 mls @ 999 mls/hr 07/08/23 10:49 07/08/23 12:24 Ns IV 07/08/23 11:49 Infused .Q1H1M STA Infusion Lorazepam 2 mg 07/08/23 08:55 07/08/23 09:00 Lorazepam 2 Mg/Ml Vial IVPUSH 07/08/23 08:56 2 mg ONCE ONE Administration Phenobarbital Sodium 424 mg 07/08/23 11:30 07/08/23 11:38 Phenobarbital Sodium 130 Mg/Ml Im Once IM 07/08/23 11:31 424 mg ONCE ONE Administration Protocol Potassium Chloride 40 meq 07/08/23 11:03 07/08/23 11:21 Potassium Chloride Packet 20 Meq Packet PO 07/08/23 11:04 40 meq ONCE ONE Administration Thiamine HCl 100 mg 07/08/23 11:02 07/08/23 11:21 Thiamine Hcl 100 Mg Tablet PO 07/08/23 11:03 100 mg ONCE ONE Administration Medical Decision Making Medical Decision Making MDM Narrative: 38-year-old male with history of alcohol withdrawal seizures, alcohol use disorder, cocaine use disorder, loop recorder who presents emergency department after having 2 seizures and then a witnessed seizure here in the emergency department. Patient does have a history of alcohol withdrawal seizures. He states he did drink alcohol yesterday but he cannot remember when he stop drinking, he also used intranasal cocaine yesterday. After the patient's postictal. He does appear to be tremulous and does appear to be withdrawing from alcohol. Following evaluation was ordered: CBC, CMP, PT/INR, PTT, lipase, head CK, urine drug screen, ethanol level, chest x-ray one view, CT scan of the brain. Patient did receive Ativan 2 mg IV during his seizure in the emergency department. Patient was also ordered to get normal saline IV x2 L 1536: Patient is tremulous and does appear to be withdrawing from alcohol. Given the fact that is had 3 seizures and drinks a significant amount of alcohol, I ordered the phenobarbital IM protocol, patient's CIWA scale will be monitored as well. Patient does have an elevated CK, this could be related to his cocaine use in secondary to his seizure-he was ordered to get 2 L of normal saline IV. Patient has a macrocytic anemia and changes in his LFTs consistent with his alcohol use disorder-he was ordered to get thigh min and folate orally. CT scan of the head and chest x-ray were unremarkable. I will discuss admission with the covering hospitalist. Differential Diagnosis Differential Diagnoses: The differential diagnosis associated with the presentation includes Differential diagnosis includes but is not limited to seizure disorder, alcohol withdrawal seizure, closed head injury, intracranial bleed, electrolyte abnormalities, anemia, rhabdomyolysis, dehydration Admission/Observation Consideration of admission/observation: Escalation of care including admission/observation considered Consult Healthcare Provider Management of the patient was discussed with: Hospitalist Lab Data MDM Lab Attestation statement: I reviewed the patient's lab results. My interpretation patient's laboratory evaluation is as follows: Microcytic anemia with an H&H of 11 and 34 MCV of 102-this is most likely secondary to his alcohol use disorder. Patient's potassium is low 3.2. Bicarb is low at 14 with an elevated anion gap of 29-this is most likely secondary to lactic acidosis from his seizure. AST and ALT are elevated 135 and 66 secondary to alcohol use disorder. Lipase elevated 134. COVID-19 negative. 07/08/23 09:16 07/08/23 09:16 Labs: Lab Results 07/08/23 07/08/23 Range/Units 09:16 12:25 WBC 6.3 (4.8-10.8) X10*3/uL RBC 3.34 L (4.60-5.80) X10*6/uL Hgb 11.1 L (14.0-18.0) g/dl Hct 34.2 L (42.0-52.0) % MCV 102.4 H (80.0-98.0) fL MCH 33.2 H (27.0-33.0) pg MCHC 32.5 (31.0-36.0) g/dl RDW 15.3 (11.0-16.0) % Plt Count 81 L (160-400) X10*3/uL MPV 10.1 (9.4-12.4) fL Immature Gran % (Auto) 1.3 H (0.0-0.4) % Neut % (Auto) 67.5 (45-73) % Lymph % (Auto) 15.0 L (20-40) % [place] % (Auto) 14.7 H (2-11) % Eos % (Auto) 0.9 (0-4) % Baso % (Auto) 0.6 (0-2) % Lymph # (Auto) 1.0 L (1.2-4.9) X10*3/uL [place] # (Auto) 0.9 (0.1-1.2) X10*3/uL Eos # (Auto) 0.1 (0.0-0.4) X10*3/uL Baso # (Auto) 0.0 (0.0-0.2) X10*3/uL Abs Immat Gran (auto) 0.08 H (0.00-0.03) X10*3/uL Absolute Neuts (auto) 4.3 (2.0-8.3) x10*3/uL Absolute Nucleated RBC 0.000 (0.0-0.012) X10*3/uL Nucleated RBC % (auto) 0.0 (0.0-0.2) /100WBC PT 12.4 (11.1-13.3) SEC INR 1.0 (0.9-1.1) APTT 28.4 (26.0-36.4) SEC Sodium 141 (135-145) mmol/L Potassium 3.2 L (3.3-5.1) mmol/L Chloride 101 (96-108) mmol/L Carbon Dioxide 14 L (22-29) mmol/L Anion Gap 29 H (12-20) BUN 6 L (9-16) mg/dL Creatinine 0.75 (0.5-1.4) mg/dL Estim Creat Clear Calc 133.5 Estimated GFR > 60 Random Glucose 128 H (60-115) mg/dL Calcium 8.2 L D (8.4-10.2) mg/dL Total Bilirubin 0.5 (0.0-1.0) mg/dL AST 135 H (5-37) U/L ALT 66 H (0-40) U/L Alkaline Phosphatase 111 (39-117) U/L Total Creatine Kinase 1436 H (38-174) U/L Total Protein 8.2 H (6.5-8.0) g/dL Albumin 3.7 (3.5-5.0) g/dL Lipase 134 H (8-78) U/L Urine Opiates Screen Not Detected (Not Detect) Urine Fentanyl Screen Not Detected (Not Detect) Ur Barbiturates Screen Not Detected (Not Detect) Ur Phencyclidine Scrn Not Detected (Not Detect) Ur Amphetamines Screen Not Detected (Not Detect) U Benzodiazepines Scrn Not Detected (Not Detect) Urine Cocaine Screen POSITIVE H (Not Detect) U Marijuana (THC) Screen Not Detected (Not Detect) Ethyl Alcohol 76 mg/dL COVID-19 (DARRYL) Negative (Negative) COVID-19 Clin Com See Note Independent Interpretation I performed an independent interpretation of an: Plain X-Ray Interpretation: CT head/brain wo IV con IMPRESSION: * No CT evidence of intracranial space-occupying mass, bleed or infarct. * There is an area of encephalomalacia in the right frontoparietal region might be a sequela of an old brain injury unchanged. * Mucosal thickening of paranasal sinuses. Dictated By: Henrietta Gray MD XR chest 1V IMPRESSION: No radiographic evidence of acute cardiopulmonary disease. Dictated By: Henrietta Gray MD Radiology Impression Discussion of test interpretation with radiology: I have reviewed the radiologist's reading. Independent Historian Clinical information obtained from an independent historian. History obtained from or confirmed by: EMS Chronic Conditions Patient?s care impacted by: Other (Alcohol use disorder, cocaine use disorder,) Social Determinants Patient?s care significantly limited by Social Determinants of Health including: Inadequate housing Critical Care Time Critical Care Time Critical Care Time: Yes Total Critical Care Time: 45 Attestation: Critical Care: The patient was critically ill with a high probability of imminent or life threatening deterioration. I spent greater than 30 minutes of discontinuous time evaluating the patient,delivering critical care at the bedside, discussing and evaluating pertinent data with consultants. Critical care time does not include time spent performing separately billable procedures or teaching. Total time spent performing critical care was 45 minutes. Discharge Plan Discharge Clinical Impression: Cocaine use Alcohol withdrawal seizure Qualifiers: Complication of substance-induced condition: uncomplicated Qualified Code(s): F 10.930 - Alcohol use, unspecified with withdrawal, uncomplicated Rhabdomyolysis Qualifiers: Rhabdomyolysis type: non-traumatic Qualified Code(s): M62.82 - Rhabdomyolysis Alcohol withdrawal Qualifiers: Complication of substance-induced condition: with unspecified complication Q ualified Code(s): F10.939 - Alcohol use, unspecified with withdrawal, unspecified Patient Disposition: Admitted As Inpatient
[2023-07-08] MEDS: Potassium Chloride Packet 20 MEQ PACKET 40 MEQ PO (11:21)
[2023-07-08] MEDS: Thiamine HCL 100 MG TABLET PO (11:21)
[2023-07-08] MEDS: Folic Acid 1 MG TABLET PO (11:21)
[2023-07-08] MEDS: PHENobarbitaL sodium 130 MG/ML IM ONCE 424 MG IM (11:38)
--- NOTE | 2023-07-08 12:09 | PC.NURSE ---
pt alert, oriented to place and situation, uncertain of date. seizure precautions in place, no seizure activity noted. fluids infusing per mar, phenobarb IM protocol started. plan of care ongoing
[2023-07-08 12:46] LABS: Amphetamine Screen Urine Not Detected (Not Detect); Barbiturates, Urine Not Detected (Not Detect); Benzodiazepines Screen Urine Not Detected (Not Detect); Cannabinoid Screen Urine Not Detected (Not Detect); Cocaine Screen Urine POSITIVE (Not Detect); Fentanyl, urine Not Detected (Not Detect); Opiate Screen Urine Not Detected (Not Detect); Phencyclidine Screen Urine Not Detected (Not Detect)
--- NOTE | 2023-07-08 12:58 | PHA.MEDREC ---
Pharmacy Consult ? Medication Reconciliation Pharmacy has completed the medication reconciliation. Patient remembers taking vitamins (multivitamin and thiamine), however patient states they haven't taken any medication is ~8 months. No known home meds at this time.
[2023-07-08] MEDS: PHENobarbitaL sodium 130 MG/ML VIAL IM Q3Hx2 318 MG IM ×2 (14:18→17:18)
--- NOTE | 2023-07-08 16:40 | PC.NURSE ---
VSS, pt has been resting throughout afternoon. awaiting admit orders and last dose of IM phenobarb.
--- NOTE | 2023-07-08 16:44 | P.HPHOSP_ITS ---
History of Present Illness Date of Service: 07/08/23 Attending physician on admission: Jamison Ramos Chief Complaint: seizure this is a 30-year-old male with history of alcohol dependence, history of alcohol withdrawal and alcohol withdrawal seizures who was brought to the emergency department for evaluation of a seizure. He reportedly had an unwitnessed seizure followed by a seizure that was witnessed by his brother who called the ambulance. After arrival to the emergency department he had a witnessed tonic-clonic seizure lasting approximately 1 minute with associated postictal period. He received a dose of IV Ativan and was then started on phenobarbital protocol. He received IV fluid as well as potassium supplementation for potassium level of 3.2. CPK was 1436, LFTs somewhat elevated. he had brain CT with IV contrast which showed no evidence of intracranial space-occupying lesion, bleed or infarct, there was area of encephalomalacia in the right frontoparietal region which could be sequela of old brain injury which is unchanged. patient was awake, alert and has no specific complaints. He reports drinking 6 large beers daily as well as Smirnoff vodka. Review of Systems 2 Review of Systems: Yes all other systems are reviewed and are negative Constitutional: Constitutional: Denies chills and Denies fever(s) Cardiovascular: Cardiovascular: Denies chest pain and Denies palpitations Respiratory: Respiratory: Denies cough Gastrointestinal: Gastrointestinal: Denies abdominal pain Endocrine: Endocrine: Denies palpitations [facility] Medical History Alcohol intoxication Syncope Asthma Family History Maternal Grandfather Heart disease Mother Diabetes HTN (hypertension) Father Diabetes Surgical History History of mandibular surgery Social History Household Members: None Housing: Homeless Alcohol intake: current Alcohol intake frequency: a few times a week Alcohol type: beer and wine Patient Tobacco Use Status: Former Tobacco user Cigarettes Per Day: 2 Years Smoked: 10 Smoked in Last 30 Days: No e-Cigarette/Vaping Use: Former Use Substance Use Type: Crack/Cocaine Advance Directives: No service: No Current occupational status: unemployed Meds Allergies Allergy/AdvReac Type Severity Reaction Status Date / Time shellfish derived Allergy Unknown HIVES Verified 07/08/23 08:58 [SHELLFISH DERIVED] SEAFOOD Allergy Unknown UNKNOWN Uncoded 07/08/23 08:58 Active Medications: Current Medications Pharmacy Consult (Consult Rx Etoh Phenob Im/Po) 1 each MISCELLANE ONCE PRN; Protocol PRN Reason: Consult order Phenobarbital (Phenobarbital 15 Mg Tablet) 45 mg PO BID ERIS; Protocol Stop: 07/10/23 21:01 Phenobarbital (Phenobarbital 15 Mg Tablet) 15 mg PO BID ERIS; Protocol Stop: 07/12/23 21:01 Phenobarbital (Phenobarbital 15 Mg Tablet) 15 mg PO DAILY ERIS; Protocol Stop: 07/14/23 09:01 Phenobarbital Sodium (Phenobarbital Sodium 130 Mg/Ml Vial Im Q3hx2) 318 mg IM Q3H ERIS; Protocol Stop: 07/08/23 17:31 Last Admin: 07/08/23 14:18 Dose: 318 mg Home Medications Medication Instructions Recorded Confirmed Last Taken Type No Known Home Meds 07/08/23 07/08/23 Unknown History Physical Exam 2 Vital Signs and Narrative: Vital Signs: Last Vital Signs Temp 99.9 F 07/08/23 16:40 Pulse 76 07/08/23 16:40 Resp 16 07/08/23 16:40 BP 134/85 07/08/23 16:40 Pulse Ox 97 07/08/23 16:40 O2 Del Method Room Air 07/08/23 16:40 BMI result Body Mass Index 25.1 Const: General: cooperative, comfortable, alert and awake Nutritional Appearance: average body habitus Orientation/consciousness: patient oriented x3 Resp: Effort & Inspection: normal respiratory effort, able to speak in complete sentences, no respiratory distress and no use of accessory muscles Cardio: Rate: regular rate GI: Inspection: No distended Palpation (GI): Soft to palpation and nontender Skin: Other: psoriasis anterior shins bilaterally Neuro: General: patient oriented x3, moves all extremities and CN's II-XI intact bilaterally Results Labs 07/08/23 09:16 07/08/23 09:16 Labs: Laboratory Results - last 24 hr 07/08/23 07/08/23 09:16 12:25 MCV 102.4 H MCH 33.2 H MCHC 32.5 RDW 15.3 Plt Count 81 L MPV 10.1 Immature Gran % (Auto) 1.3 H Neut % (Auto) 67.5 Lymph % (Auto) 15.0 L [place] % (Auto) 14.7 H Eos % (Auto) 0.9 Baso % (Auto) 0.6 Lymph # (Auto) 1.0 L [place] # (Auto) 0.9 Eos # (Auto) 0.1 Baso # (Auto) 0.0 Abs Immat Gran (auto) 0.08 H Absolute Neuts (auto) 4.3 Absolute Nucleated RBC 0.000 Nucleated RBC % (auto) 0.0 PT 12.4 INR 1.0 APTT 28.4 Anion Gap 29 H Estim Creat Clear Calc 133.5 Estimated GFR > 60 Random Glucose 128 H Calcium 8.2 L D Total Bilirubin 0.5 AST 135 H ALT 66 H Alkaline Phosphatase 111 Total Creatine Kinase 1436 H Total Protein 8.2 H Albumin 3.7 Lipase 134 H Urine Opiates Screen Not Detected Urine Fentanyl Screen Not Detected Ur Barbiturates Screen Not Detected Ur Phencyclidine Scrn Not Detected Ur Amphetamines Screen Not Detected U Benzodiazepines Scrn Not Detected Urine Cocaine Screen POSITIVE H U Marijuana (THC) Screen Not Detected Ethyl Alcohol 76 COVID-19 (DARRYL) Negative COVID-19 Clin Com See Note Imaging Radiologist's Impressions: Impressions Chest X-Ray 07/08/23 09:40 IMPRESSION: No radiographic evidence of acute cardiopulmonary disease. Head CT 07/08/23 09:55 IMPRESSION: * No CT evidence of intracranial space-occupying mass, bleed or infarct. * There is an area of encephalomalacia in the right frontoparietal region might be a sequela of an old brain injury unchanged. * Mucosal thickening of paranasal sinuses. Assessment and Plan (1) Cocaine use: Status: Acute (2) Alcohol withdrawal seizure: Qualifiers: Complication of substance-induced condition: uncomplicated Qualified Code(s): F10.930 - Alcohol use, unspecified with withdrawal, uncomplicated; R56.9 - Unspecified convulsions Status: Acute (3) Rhabdomyolysis: Qualifiers: Rhabdomyolysis type: non-traumatic Qualified Code(s): M62.82 - Rhabdomyolysis Status: Acute Plan This is a 37-year-old homeless male with history of alcohol dependence implantable loop recorder for history of syncope who was brought to the emergency department after his brother witnessed him having a seizure, followed by another seizure in the ED and was subsequently started on phenobarbitol and the decision was made to admit him to the hospital. Alcohol dependence with alcohol withdrawal seizure Phenobarbital protocol Thiamine, folate supplementation addiction medicine evaluation pending seizure precautions follow CIWA check magnesium Rhabdomyolysis, mild CPK 1436 r/t seizure continue IVF trend CPK Elevated LFTs No abdominal pain, likely secondary to alcohol use Trend LFTs hypokalemia mild k3.2 replaced in ED follow BMP AG metabolic acidosis likey r/t seizure will repeat BMP Thrombocytopenia chronic r/t etoh use probable underlying liver dz follow CBC no evidence of bleeding chronic normocytic anemia H/H at baseline above transfusion threshold dvt ppx - mechanical devices code status - full code attending - dr. ramos Given alcohol withdrawal patient will likely require 2 midnight stay in the hospital for phenobarbital, close monitoring and management of electrolytes Time Spent With Patient Time: Total time managing care of this patient today ____ minutes. Quality Stroke Does the patient have a stroke diagnosis?: No VTE Prior VTE?: No VTE Risk Level:: Medical - moderate - high VTE Device Contraindication: N/A - Device Ordered VTE Drug Contraindication: N/A - Med Ordered
[2023-07-08] MEDS: Enoxaparin Sodium 40 MG/0.4 ML SYRINGE SUBCUT (17:19)
[2023-07-08] MEDS: Lactated Ringers 1,000 ML 125 ML IVCONT (17:29)
[2023-07-08 18:02] LABS: Anion Gap 15 (12-20); Blood Urea Nitrogen 4 mg/dL (9-16); Calcium 7.9 mg/dL (8.4-10.2); Carbon Dioxide 23 mmol/L (22-29); Chloride 99 mmol/L (96-108); Creatinine Clr Calc Pharmacy 158.9; Estimated Glomerular Filt Rate > 60; Glucose Random 101 mg/dL (60-115); Magnesium 1.3 mg/dL (1.6-2.6); Potassium 3.3 mmol/L (3.3-5.1); Sodium 134 mmol/L (135-145)
--- NOTE | 2023-07-08 18:09 | PC.NURSE ---
pt belongings were found wet in laundry in pod. they will be washed, dried and sent upstairs when dry.
[2023-07-08] MEDS: Acetaminophen 325 MG TABLET 650 MG PO (18:48)
[2023-07-08] MEDS: Magnesium Sulfate/H2O 2 GM/50 ML PIGGYBACK IV (18:48)
[2023-07-09] MEDS: Lactated Ringers 1,000 ML 125 ML IVCONT ×2 (02:02→09:58)
[2023-07-09 04:00] VITALS: BP 141/67; PULSE 73; RESP 20; TEMP 37.2; O2SAT 98
[2023-07-09 07:54] VITALS: BP 135/91; PULSE 65; RESP 20; TEMP 37.3; O2SAT 98
[2023-07-09 08:17] LABS: Mean Corpuscular Volume 98.5 fL (80.0-98.0); PLT CLUMP 1
[2023-07-09 08:18] LABS: Hemoglobin 11.1 g/dl (14.0-18.0); Mean Corpuscular HGB Conc 33.6 g/dl (31.0-36.0); Mean Corpuscular Hemoglobin 33.1 pg (27.0-33.0); Mean Platelet Volume 11.5 fL (9.4-12.4); Red Blood Count 3.35 X10*6/uL (4.60-5.80); Red Cell Distribution Width 14.9 % (11.0-16.0)
[2023-07-09 08:26] LABS: Platelet Count 87 X10*3/uL (160-400); White Blood Count 4.2 X10*3/uL (4.8-10.8)
[2023-07-09] MEDS: 0.9 % Sodium Chloride Flush 3 ML SYRINGE IVFLUSH (08:33)
[2023-07-09] MEDS: Thiamine HCL 100 MG TABLET PO (08:33)
[2023-07-09] MEDS: Folic Acid 1 MG TABLET PO (08:33)
[2023-07-09] MEDS: PHENobarbitaL 15 MG TABLET 45 MG PO ×2 (08:33→19:57)
[2023-07-09] MEDS: Acetaminophen 325 MG TABLET 650 MG PO ×2 (08:33→15:26)
[2023-07-09 08:46] LABS: Alanine Aminotransferase 58 U/L (0-40); Albumin Level 3.4 g/dL (3.5-5.0); Alkaline Phosphatase 91 U/L (39-117); Anion Gap 13 (12-20); Aspartate Amino Transferase 142 U/L (5-37); Bilirubin Direct 0.4 mg/dL (0.0-0.5); Bilirubin Total 0.9 mg/dL (0.0-1.0); Blood Urea Nitrogen 3 mg/dL (9-16); Calcium 8.7 mg/dL (8.4-10.2); Carbon Dioxide 25 mmol/L (22-29); Chloride 99 mmol/L (96-108); Creatinine Clr Calc Pharmacy 161.5; Estimated Glomerular Filt Rate > 60; Glucose Random 73 mg/dL (60-115); Potassium 2.8 mmol/L (3.3-5.1); Sodium 134 mmol/L (135-145); Total Protein 7.7 g/dL (6.5-8.0)
[2023-07-09 12:00] VITALS: BP 134/98; PULSE 88; RESP 20; TEMP 37.2; O2SAT 98
--- NOTE | 2023-07-09 13:47 | P.PNIM_ITS ---
Subjective Subjective Date of Service: 07/09/23 Interval History: seen and examined this morning follow up for alcohol withdrawal seizure no overnight events having some generalized muscle pain, no other complaints at this time Review of Systems Review of Systems: Yes all other systems are reviewed and are negative Constitutional Constitutional: Denies chills and Denies fever(s) Cardiovascular Cardiovascular: Denies chest pain, Denies palpitations and Denies dyspnea Respiratory Respiratory: Denies cough and Denies dyspnea Gastrointestinal Gastrointestinal: Denies abdominal pain Endocrine Endocrine: Denies palpitations Physical Exam 2 Vital Signs: Vital Signs: Last Vital Signs Temp 98.9 F 07/09/23 12:00 Pulse 88 07/09/23 12:00 Resp 20 07/09/23 12:00 BP 134/98 H 07/09/23 12:00 Pulse Ox 98 07/09/23 12:00 O2 Del Method Room Air 07/09/23 12:00 BMI result Body Mass Index 25.1 Const: General: cooperative, comfortable, alert and awake Nutritional Appearance: average body habitus Orientation/consciousness: patient oriented x3 Resp: Effort & Inspection: normal respiratory effort, able to speak in complete sentences, no respiratory distress and no use of accessory muscles Cardio: Rate: regular rate GI: Inspection: No distended Palpation (GI): Soft to palpation and nontender Skin: Other: psoriasis anterior shins bilaterally Neuro: General: patient oriented x3, moves all extremities and CN's II-XI intact bilaterally Objective Data Active Medications Acetaminophen (Acetaminophen 325 Mg Tablet) 650 mg PO Q6H PRN PRN Reason: Pain, Mild (Pain Scale 1-3) Last Admin: 07/09/23 08:33 Dose: 650 mg Documented By: JING Docusate Sodium (Docusate Sodium 100 Mg Capsule) 100 mg PO DAILY PRN PRN Reason: Constipation Enoxaparin Sodium (Enoxaparin Sodium 40 Mg/0.4 Ml Syringe) 40 mg SUBCUT Q24H [facility] Last Admin: 07/08/23 17:19 Dose: 40 mg Documented By: ISSAC Folic Acid (Folic Acid 1 Mg Tablet) 1 mg PO DAILY [facility] Last Admin: 07/09/23 08:33 Dose: 1 mg Documented By: JING Lactated Ringer's (Lr) 1,000 mls @ 150 mls/hr IVCONT .Q6H40M [facility] Last Admin: 07/09/23 09:58 Dose: 125 mls/hr Documented By: JING Potassium Chloride (Potassium Chloride/H20) 10 meq in 100 mls @ 100 mls/hr IV Q1H [facility] Stop: 07/09/23 15:44 Pharmacy Consult (Consult Rx Etoh Phenob Im/Po) 1 each MISCELLANE ONCE PRN; Protocol PRN Reason: Consult order Phenobarbital (Phenobarbital 15 Mg Tablet) 45 mg PO BID [facility]; Protocol Stop: 07/10/23 21:01 Last Admin: 07/09/23 08:33 Dose: 45 mg Documented By: JING Phenobarbital (Phenobarbital 15 Mg Tablet) 15 mg PO BID [facility]; Protocol Stop: 07/12/23 21:01 Phenobarbital (Phenobarbital 15 Mg Tablet) 15 mg PO DAILY [facility]; Protocol Stop: 07/14/23 09:01 Sodium Chloride (0.9 % Sodium Chloride Flush 3 Ml Syringe) 3 ml IVFLUSH QSHIFT [facility] Last Admin: 07/09/23 08:33 Dose: 3 ml Documented By: JING Thiamine HCl (Thiamine Hcl 100 Mg Tablet) 100 mg PO DAILY [facility] Last Admin: 07/09/23 08:33 Dose: 100 mg Documented By: JING Labs 07/09/23 06:29 07/09/23 06:29 Labs: Laboratory Results - last 24 hr 07/08/23 07/09/23 17:33 06:29 MCV 98.5 H MCH 33.1 H MCHC 33.6 RDW 14.9 Plt Count 87 L MPV 11.5 Absolute Nucleated RBC 0.000 Nucleated RBC % (auto) 0.0 Hold Purple Top SEE NOTE Anion Gap 15 13 Estim Creat Clear Calc 158.9 161.5 Estimated GFR > 60 > 60 Random Glucose 101 73 Calcium 7.9 L 8.7 D Magnesium 1.3 L* Total Bilirubin 0.9 Direct Bilirubin 0.4 AST 142 H ALT 58 H Alkaline Phosphatase 91 Total Creatine Kinase 2284 H Total Protein 7.7 Albumin 3.4 L Assessment and Plan (1) Alcohol withdrawal: Status: Acute (2) Rhabdomyolysis: Status: Acute (3) Alcohol withdrawal seizure: Status: Acute (4) Hypomagnesemia: Status: Acute Plan This is a 37-year-old homeless male with history of alcohol dependence implantable loop recorder for history of syncope who was brought to the emergency department after his brother witnessed him having a seizure, followed by another seizure in the ED and was subsequently started on phenobarbitol and the decision was made to admit him to the hospital. Alcohol dependence with alcohol withdrawal seizures Continue phenobarbital protocol Thiamine, folate supplementation addiction medicine evaluation pending seizure precautions follow CIWA - scoring 2 hypomagnesemia/hypokalemia replace and follow levels Rhabdomyolysis, mild CPK 1436 on arrival, trending up to 2284 r/t seizure continue IVF trend CPK renal function stable Elevated LFTs No abdominal pain, likely secondary to alcohol use LFTs stable AG metabolic acidosis likey r/t seizure resolved Thrombocytopenia chronic r/t etoh use probable underlying liver dz follow CBC no evidence of bleeding chronic normocytic anemia H/H at baseline above transfusion threshold dvt ppx - mechanical devices code status - full code attending - dr. cooley Requires ongoing inpatient stay for management of alcohol withdrawal requiring phenobarbital, close monitoring and management of electrolytes Time Spent With Patient Time: Total time managing care of this patient today ____ minutes. Quality Stroke Does the patient have a stroke diagnosis?: No VTE Prior VTE?: No VTE Risk Level:: Medical - moderate - high VTE Device Contraindication: N/A - Device Ordered VTE Drug Contraindication: N/A - Med Ordered
[2023-07-09 14:03] LABS: Magnesium 1.7 mg/dL (1.6-2.6)
--- NOTE | 2023-07-09 14:08 | MHC.CM.PN ---
Addendum entered by Vianca Portillo RN 07/09/23 14:09: PT DECLINES INTERVENTION FROM RECOVERY TEAM, REPORTS HE USED TO BE ON SUBOXONE AND IT MADE HIM SICK, PT DENIES INTEREST IN METHADONE Original Note: EMR REVIEWED, PT ADMITTED W/SEIZURE, CM MET W/PT WHO REPORTS HE HAS [place]EN LIVING [place] HOWEVER WILL STAY W/HIS FATHER IN [facility] ON D/C, PLEASE WILL NEED BUS PASSES/LYFT FOR TRANSPORT. PT STILL DOES NOT HAVE A PCP, PT INSTRUCTED TO SELF PRESENT AT [facility]/ PROVIDED W/PAMPHLET OF [facility] PROVIDERS HOWEVER PT NOT LIKELY TO FOLLOW THROUGH AND MAY WANT [facility] IF HE IS GOING TO [facility]. PT EDUCATED ON AND DECLINES TO COMPLETE A HCP.
[2023-07-09] MEDS: Potassium Chloride Packet 20 MEQ PACKET 40 MEQ PO (14:17)
[2023-07-09] MEDS: Potassium Chloride/H20 10 MEQ/100 ML PIGGYBACK 100 MEQ IV ×2 (14:17→15:27)
--- NOTE | 2023-07-09 14:23 | MHC.CM.PN ---
PT BELONGINGS BEING REWASHED IN PURPLE POD/ED, PER STAFF WILL BE BROUGHT UP ONCE COMPLETED.
[2023-07-09 15:29] VITALS: BP 129/92; PULSE 79; RESP 20; TEMP 37.2; O2SAT 98
[2023-07-09] MEDS: Lactated Ringers 1,000 ML 150 ML IVCONT ×2 (17:24→23:58)
[2023-07-09] MEDS: Enoxaparin Sodium 40 MG/0.4 ML SYRINGE SUBCUT (17:59)
[2023-07-09 19:01] VITALS: BP 132/85; PULSE 82; RESP 20; TEMP 37.2; O2SAT 98
[2023-07-10] VITALS: BP 148/96; PULSE 66; RESP 16; TEMP 37.1; O2SAT 99
[2023-07-10 03:50] VITALS: BP 133/87; PULSE 60; RESP 18; TEMP 37.1; O2SAT 96
[2023-07-10] MEDS: Lactated Ringers 1,000 ML 150 ML IVCONT ×2 (06:33→14:49)
[2023-07-10 07:37] VITALS: BP 155/98; PULSE 61; RESP 15; TEMP 36.9; O2SAT 97
[2023-07-10 07:41] LABS: Anion Gap 17 (12-20); Blood Urea Nitrogen 4 mg/dL (9-16); Carbon Dioxide 23 mmol/L (22-29); Chloride 101 mmol/L (96-108); Creatinine Clr Calc Pharmacy 172.6; Estimated Glomerular Filt Rate > 60; Glucose Random 79 mg/dL (60-115); Magnesium 1.5 mg/dL (1.6-2.6); Potassium 3.5 mmol/L (3.3-5.1); Sodium 137 mmol/L (135-145)
[2023-07-10] MEDS: PHENobarbitaL 15 MG TABLET 45 MG PO ×2 (08:49→21:39)
[2023-07-10] MEDS: Folic Acid 1 MG TABLET PO (08:49)
[2023-07-10] MEDS: Thiamine HCL 100 MG TABLET PO (08:49)
[2023-07-10] MEDS: 0.9 % Sodium Chloride Flush 3 ML SYRINGE IVFLUSH (08:55)
[2023-07-10] MEDS: Magnesium Sulfate/H2O 2 GM/50 ML PIGGYBACK IV (09:00)
[2023-07-10 11:13] VITALS: BP 120/76; PULSE 83; RESP 15; TEMP 37.1; O2SAT 97
--- NOTE | 2023-07-10 11:25 | MHC.CM.PN ---
PER MD ROUNDS, PT MAY BE READY TO DC TOMORROW DCP: TO FATHERS HOME VIA [place] VS BUS PASS
--- NOTE | 2023-07-10 11:56 | HO.PM.IMPN ---
Subjective Subjective Date of Service: 07/10/23 Interval History: seen and examined this morning follow up for alcohol withdrawal seizure no overnight events having some generalized muscle pain, no other complaints at this time Review of Systems Review of Systems: Yes all other systems are reviewed and are negative Constitutional Constitutional: Denies chills and Denies fever(s) Cardiovascular Cardiovascular: Denies chest pain, Denies palpitations and Denies dyspnea Respiratory Respiratory: Denies cough and Denies dyspnea Gastrointestinal Gastrointestinal: Denies abdominal pain Endocrine Endocrine: Denies palpitations Physical Exam Vital Signs: Vital Signs: Last Vital Signs Temp 98.8 F 07/10/23 11:13 Pulse 83 07/10/23 11:13 Resp 15 07/10/23 11:13 BP 120/76 07/10/23 11:13 Pulse Ox 97 07/10/23 11:13 O2 Del Method Room Air 07/10/23 11:13 BMI result Body Mass Index 25.1 Appearing in no acute distress lung sounds are clear to auscultation heart regular rate rhythm, clear S1, S2 positive bowel sounds, abdomen is soft, nontender neuro patient is alert x3, no focal deficits Objective Data Active Medications Acetaminophen (Acetaminophen 325 Mg Tablet) 650 mg PO Q6H PRN PRN Reason: Pain, Mild (Pain Scale 1-3) Last Admin: 07/09/23 15:26 Dose: 650 mg Documented By: JING Docusate Sodium (Docusate Sodium 100 Mg Capsule) 100 mg PO DAILY PRN PRN Reason: Constipation Enoxaparin Sodium (Enoxaparin Sodium 40 Mg/0.4 Ml Syringe) 40 mg SUBCUT Q24H [facility] Last Admin: 07/09/23 17:59 Dose: 40 mg Documented By: JING Folic Acid (Folic Acid 1 Mg Tablet) 1 mg PO DAILY [facility] Last Admin: 07/10/23 08:49 Dose: 1 mg Documented By: NEAL Lactated Ringer's (Lr) 1,000 mls @ 150 mls/hr IVCONT .Q6H40M [facility] Last Infusion: 07/10/23 11:05 Dose: 150 mls/hr Documented By: NEAL Pharmacy Consult (Consult Rx Etoh Phenob Im/Po) 1 each MISCELLANE ONCE PRN; Protocol PRN Reason: Consult order Phenobarbital (Phenobarbital 15 Mg Tablet) 45 mg PO BID [facility]; Protocol Stop: 07/10/23 21:01 Last Admin: 07/10/23 08:49 Dose: 45 mg Documented By: NEAL Phenobarbital (Phenobarbital 15 Mg Tablet) 15 mg PO BID [facility]; Protocol Stop: 07/12/23 21:01 Phenobarbital (Phenobarbital 15 Mg Tablet) 15 mg PO DAILY [facility]; Protocol Stop: 07/14/23 09:01 Sodium Chloride (0.9 % Sodium Chloride Flush 3 Ml Syringe) 3 ml IVFLUSH QSHIFT [facility] Last Admin: 07/10/23 08:55 Dose: 3 ml Documented By: NEAL Thiamine HCl (Thiamine Hcl 100 Mg Tablet) 100 mg PO DAILY [facility] Last Admin: 07/10/23 08:49 Dose: 100 mg Documented By: NEAL Labs 07/09/23 06:29 07/10/23 06:36 Labs: Laboratory Results - last 24 hr 07/09/23 07/10/23 06:29 06:36 Anion Gap 17 Estim Creat Clear Calc 172.6 Estimated GFR > 60 Random Glucose 79 Calcium 9.0 Magnesium 1.7 1.5 L Total Creatine Kinase 2131 H Assessment and Plan (1) Alcohol withdrawal: Status: Acute (2) Rhabdomyolysis: Status: Acute (3) Alcohol withdrawal seizure: Status: Acute (4) Hypomagnesemia: Status: Acute Plan This is a 37-year-old homeless male with history of alcohol dependence implantable loop recorder for history of syncope who was brought to the emergency department after his brother witnessed him having a seizure, followed by another seizure in the ED and was subsequently started on phenobarbitol and the decision was made to admit him to the hospital. Alcohol dependence with alcohol withdrawal seizures Continue phenobarbital protocol Thiamine, folate supplementation addiction medicine evaluation pending seizure precautions follow CIWA hypomagnesemia/hypokalemia replace and follow levels Rhabdomyolysis, mild cpk 2131 r/t seizure continue IVF trend CPK renal function stable Elevated LFTs No abdominal pain, likely secondary to alcohol use LFTs stable AG metabolic acidosis likey r/t seizure resolved Thrombocytopenia chronic r/t etoh use probable underlying liver dz follow CBC no evidence of bleeding chronic normocytic anemia H/H at baseline above transfusion threshold dvt ppx - mechanical devices code status - full code attending - dr. Yanes Requires ongoing inpatient stay for management of alcohol withdrawal requiring phenobarbital, close monitoring and management of electrolytes Time Spent With Patient Time: Total time managing care of this patient today ____ minutes. Quality Stroke Does the patient have a stroke diagnosis?: No VTE Prior VTE?: No VTE Risk Level:: Medical - moderate - high VTE Device Contraindication: N/A - Device Ordered VTE Drug Contraindication: N/A - Med Ordered
--- NOTE | 2023-07-10 14:30 | P.CDIM_ITS ---
PROVIDER RESPONSE TEXT: To clarify, the appropriate diagnosis supported by the clinical indicators: Acute metabolic acidosis QUERY TEXT: PHYSICIAN'S DOCUMENTATION REQUEST Date of Query: 07/10/2023 12:57 PM EDT Patient Name: Duarte Bailon Admit Date: 07/08/2023 Dear Preeti Acevedo, A review of the medical record indicates additional documentation may be needed. Please review below and update the documentation accordingly. Clinical Indicators: PN: AG metabolic acidosis likely r/t seizure resolved Based on the above, could you clarify the appropriate diagnosis, if significant, that supports the ab ove abnormalities and additional evaluation, monitoring, and/or treatment rendered: Acute metabolic acidosis Metabolic acidosis Other please specify Other (explain)Clinically unable to determine (explain)Thank you, Liset Davis, CCS, CDIS Use of terms such as suspected, likely, concern for, or probable (associated with a specific diagnosi s that is being evaluated, monitored, or treated as if it exists) are acceptable and can be coded in the inpatient se tting, when documented at the time of discharge. Please use your independent medical judgment in providing your response. THIS QUERY IS PART OF THE PERMANENT MEDICAL RECORD
[2023-07-10 15:54] VITALS: BP 134/97; PULSE 77; RESP 20; TEMP 37.2; O2SAT 98
[2023-07-10] MEDS: Enoxaparin Sodium 40 MG/0.4 ML SYRINGE SUBCUT (17:09)
[2023-07-10 19:46] VITALS: BP 125/81; PULSE 82; RESP 20; TEMP 37.2; O2SAT 97
[2023-07-10] MEDS: Acetaminophen 325 MG TABLET 650 MG PO (21:49)
[2023-07-11] VITALS (7 sets, daily range): BP systolic 113–151; BP diastolic 82–97; PULSE 55–86; RESP 14–20; TEMP 36.4–37.8; O2SAT 95–99
--- NOTE | 2023-07-11 06:06 | ECG_ITS ---
Test Reason : CP Blood Pressure : / mmHG Vent. Rate : 057 BPM Atrial Rate : 057 BPM P-R Int : 186 ms QRS Dur : 084 ms QT Int : 440 ms P-R-T Axes : 046 054 049 degrees QTc Int : 428 ms Sinus bradycardia with marked sinus arrhythmia Early repolarization Otherwise normal ECG When compared with ECG of 22-FEB-2023 18:50, Heart rate has decreased Referred By: Preeti Acevedo Electronically Signed By:BOB GOETZ
[2023-07-11 07:38] LABS: Anion Gap 16 (12-20); Blood Urea Nitrogen 7 mg/dL (9-16); Calcium 9.2 mg/dL (8.4-10.2); Carbon Dioxide 25 mmol/L (22-29); Chloride 100 mmol/L (96-108); Creatinine Clr Calc Pharmacy 151.7; Estimated Glomerular Filt Rate > 60; Glucose Random 86 mg/dL (60-115); Magnesium 1.8 mg/dL (1.6-2.6); Potassium 3.6 mmol/L (3.3-5.1); Sodium 137 mmol/L (135-145)
--- NOTE | 2023-07-11 08:00 | PC.NURSE ---
RN notified by the monitoring tech that patient was having pauses. the longest of them being 4 seconds. checked on the patient who was asymptomatic with a BP of 128/86. pt was alert and oriented and had no complaints. the MD was notified and ordered an EKG, which was completed and pacer pads were applied per MD request. patient is resting comfortably in bed at this time.
--- NOTE | 2023-07-11 08:44 | MHC.CM.PN ---
EMR REVIEWED, CASE DISCUSSED W/HOSPITALIST, PT BRADYCARDIC OVER NIGHT AND HAS PACEMEAKER, NO D/C PLANNED FOR TODAY, CM WILL CONT TO FOLLOW D/C NEEDS. PLAN TO [facility]ERS HOME [facility] VIA BUS PASS/[facility]
[2023-07-11] MEDS: Thiamine HCL 100 MG TABLET PO (09:12)
[2023-07-11] MEDS: Folic Acid 1 MG TABLET PO (09:12)
[2023-07-11] MEDS: Acetaminophen 325 MG TABLET 650 MG PO ×2 (09:12→17:08)
[2023-07-11] MEDS: PHENobarbitaL 15 MG TABLET PO ×2 (09:12→20:41)
[2023-07-11] MEDS: 0.9 % Sodium Chloride Flush 3 ML SYRINGE IVFLUSH ×3 (09:13→20:43)
--- NOTE | 2023-07-11 12:08 | P.PNIM_ITS ---
Subjective Subjective Date of Service: 07/11/23 Interval History: seen and examined this morning follow up for alcohol withdrawal seizure having episodes of bradycardia Review of Systems Review of Systems: Yes all other systems are reviewed and are negative Constitutional Constitutional: Denies chills and Denies fever(s) Cardiovascular Cardiovascular: Denies chest pain, Denies palpitations and Denies dyspnea Respiratory Respiratory: Denies cough and Denies dyspnea Gastrointestinal Gastrointestinal: Denies abdominal pain Endocrine Endocrine: Denies palpitations Physical Exam 2 Vital Signs: Vital Signs: Last Vital Signs Temp 97.6 F 07/11/23 10:57 Pulse 67 07/11/23 10:57 Resp 20 07/11/23 10:57 BP 133/84 07/11/23 10:57 Pulse Ox 98 07/11/23 10:57 O2 Del Method Room Air 07/11/23 10:57 BMI result Body Mass Index 25.1 Appearing in no acute distress lung sounds are clear to auscultation heart regular rate rhythm, clear S1, S2 positive bowel sounds, abdomen is soft, nontender neuro patient is alert x3, no focal deficits Objective Data Active Medications Acetaminophen (Acetaminophen 325 Mg Tablet) 650 mg PO Q6H PRN PRN Reason: Pain, Mild (Pain Scale 1-3) Last Admin: 07/11/23 09:12 Dose: 650 mg Documented By: NEAL Docusate Sodium (Docusate Sodium 100 Mg Capsule) 100 mg PO DAILY PRN PRN Reason: Constipation Enoxaparin Sodium (Enoxaparin Sodium 40 Mg/0.4 Ml Syringe) 40 mg SUBCUT Q24H [facility] Last Admin: 07/10/23 17:09 Dose: 40 mg Documented By: NEAL Folic Acid (Folic Acid 1 Mg Tablet) 1 mg PO DAILY [facility] Last Admin: 07/11/23 09:12 Dose: 1 mg Documented By: NEAL Pharmacy Consult (Consult Rx Etoh Phenob Im/Po) 1 each MISCELLANE ONCE PRN; Protocol PRN Reason: Consult order Phenobarbital (Phenobarbital 15 Mg Tablet) 15 mg PO BID [facility]; Protocol Stop: 07/12/23 21:01 Last Admin: 07/11/23 09:12 Dose: 15 mg Documented By: NEAL Phenobarbital (Phenobarbital 15 Mg Tablet) 15 mg PO DAILY [facility]; Protocol Stop: 07/14/23 09:01 Sodium Chloride (0.9 % Sodium Chloride Flush 3 Ml Syringe) 3 ml IVFLUSH QSHIFT [facility] Last Admin: 07/11/23 09:13 Dose: 3 ml Documented By: NEAL Thiamine HCl (Thiamine Hcl 100 Mg Tablet) 100 mg PO DAILY [facility] Last Admin: 07/11/23 09:12 Dose: 100 mg Documented By: NEAL Labs 07/09/23 06:29 07/11/23 06:28 Labs: Laboratory Results - last 24 hr 07/11/23 06:28 Anion Gap 16 Estim Creat Clear Calc 151.7 Estimated GFR > 60 Random Glucose 86 Calcium 9.2 Magnesium 1.8 Assessment and Plan (1) Alcohol withdrawal: Status: Acute (2) Rhabdomyolysis: Status: Acute (3) Alcohol withdrawal seizure: Status: Acute (4) Hypomagnesemia: Status: Acute Plan This is a 37-year-old homeless male with history of alcohol dependence implantable loop recorder for history of syncope who was brought to the emergency department after his brother witnessed him having a seizure, followed by another seizure in the ED and was subsequently started on phenobarbitol and the decision was made to admit him to the hospital. Bradycardia with sinus pauses continue to monitor on telemetry cardiology consultation pending Alcohol dependence with alcohol withdrawal seizures Continue phenobarbital protocol Thiamine, folate supplementation seizure precautions follow CIWA hypomagnesemia/hypokalemia replace and follow levels Rhabdomyolysis, mild trending down r/t seizure continue IVF trend CPK renal function stable Elevated LFTs No abdominal pain, likely secondary to alcohol use LFTs stable AG metabolic acidosis likey r/t seizure resolved Thrombocytopenia chronic r/t etoh use probable underlying liver dz follow CBC no evidence of bleeding chronic normocytic anemia H/H at baseline above transfusion threshold dvt ppx - mechanical devices code status - full code attending - dr. Yanes Requires ongoing inpatient stay for management of alcohol withdrawal requiring phenobarbital, close monitoring and management of electrolytes Time Spent With Patient Time: Total time managing care of this patient today ____ minutes. Quality Stroke Does the patient have a stroke diagnosis?: No VTE Prior VTE?: No VTE Risk Level:: Medical - moderate - high VTE Device Contraindication: N/A - Device Ordered VTE Drug Contraindication: N/A - Med Ordered
[2023-07-11] MEDS: Enoxaparin Sodium 40 MG/0.4 ML SYRINGE SUBCUT (17:04)
[2023-07-12] VITALS (8 sets, daily range): BP systolic 116–132; BP diastolic 65–91; PULSE 73–89; RESP 14–20; TEMP 36.6–37.4; O2SAT 97–98
--- NOTE | 2023-07-12 04:23 | PC.NURSE ---
PATIENT SLEEPING WELL, CARDIAC MONITORING IN USE AND NOTED HEART RATE LOWERS DOWN TO MID 30 S AND 40 S AT TIMES BUT THEN RETURNS TO 5O- MID 60 RANGE QUICKLY. PT EASILY AWAKENED AND DENIES ALL PAIN. MED-TELE CHARGE NURSE IS AWARE OF CARDIAC RHYTHM AND SHE IS MONITORING PATTERN AND ALSO WENT TO PATIENTS ROOM TO EVAL HIM TOO. SHRINKING MACHINE OPERATOR IS WATCHING RHYTHM FOR THIS [employer] EMPLOYEE. WILL CONTINUE TO WATCH PATIENT CLOSELY.
--- NOTE | 2023-07-12 05:26 | PM.EVENT ---
Event Note Date of Service: 07/12/23 Event Note: pt had a pause of 6 s. on tewle. pacer pads applied. asymptomatic Time Spent With Patient Time: Total time managing care of this patient today ____ minutes.
--- NOTE | 2023-07-12 05:44 | PC.NURSE ---
PATIENT CONTINUES TO REST WELL WITH NO COMPLAINTS, HOWEVER, AT APPROX., 0516, ALERTED BY CHARGE NURSE THAT AN ALMOST 6 SECOND PAUSE HAPPENED. CHARGE NURSE INFORMED THIS LOG OPERATIONS COORDINATOR TO ALERT MD, A NOTE AND PHOTO OF EVENT STRIP SENT TO HOSPITALIST ON DUTY. ACKNOWLEDGED NOTE AND STATED TO MAKE SURE PACER PADS WERE IN PLACE ON PATIENT PREVIOUS. PADS NOTED ON PATIENT AND MD WROTE AN EVENT NOTE. VITALS 98--18-130/80-97% ROOM AIR. WILL CONTINUE TO MONITOR CLOSELY.
[2023-07-12] MEDS: PHENobarbitaL 15 MG TABLET PO ×2 (08:08→20:02)
[2023-07-12] MEDS: Thiamine HCL 100 MG TABLET PO (08:08)
[2023-07-12] MEDS: 0.9 % Sodium Chloride Flush 3 ML SYRINGE IVFLUSH ×2 (08:08→17:24)
[2023-07-12] MEDS: Folic Acid 1 MG TABLET PO (08:09)
[2023-07-12 09:15] LABS: Hematocrit 35.9 % (42.0-52.0); Hemoglobin 12.1 g/dl (14.0-18.0); Mean Corpuscular HGB Conc 33.7 g/dl (31.0-36.0); Mean Corpuscular Hemoglobin 33.5 pg (27.0-33.0); Mean Corpuscular Volume 99.4 fL (80.0-98.0); Platelet Count 183 X10*3/uL (160-400); Red Blood Count 3.61 X10*6/uL (4.60-5.80); Red Cell Distribution Width 14.9 % (11.0-16.0); White Blood Count 6.2 X10*3/uL (4.8-10.8)
[2023-07-12 09:38] LABS: Alanine Aminotransferase 113 U/L (0-40); Albumin Level 3.6 g/dL (3.5-5.0); Alkaline Phosphatase 102 U/L (39-117); Anion Gap 11 (12-20); Aspartate Amino Transferase 210 U/L (5-37); Bilirubin Direct 0.2 mg/dL (0.0-0.5); Bilirubin Total 0.5 mg/dL (0.0-1.0); Blood Urea Nitrogen 9 mg/dL (9-16); Calcium 9.4 mg/dL (8.4-10.2); Carbon Dioxide 25 mmol/L (22-29); Chloride 102 mmol/L (96-108); Creatinine Clr Calc Pharmacy 149.4; Estimated Glomerular Filt Rate > 60; Glucose Random 128 mg/dL (60-115); Magnesium 1.9 mg/dL (1.6-2.6); Potassium 3.7 mmol/L (3.3-5.1); Sodium 134 mmol/L (135-145); Total Protein 8.2 g/dL (6.5-8.0)
--- NOTE | 2023-07-12 10:18 | HO.PM.IMPN ---
Subjective Subjective Date of Service: 07/12/23 Interval History: was asleep during sinus pause of 5.6s this AM multiple other shorter pauses no lightheadedness still very shaky Review of Systems Review of Systems: Yes all other systems are reviewed and are negative Physical Exam Vital Signs: Vital Signs: Last Vital Signs Temp 98.3 F 07/12/23 07:10 Pulse 73 07/12/23 07:10 Resp 20 07/12/23 07:10 BP 127/90 H 07/12/23 07:10 Pulse Ox 98 07/12/23 07:10 O2 Del Method Room Air 07/12/23 07:10 BMI result Body Mass Index 25.1 Gen: tremulous HEENT: sclera anicteric, moist mucus membranes Neck: supple Lungs: clear to auscultation bilaterally Heart: regular rate and rhythm, no murmurs Abd: soft, non-tender, non-distended Ext: no edema Skin: warm/well-perfused Neuro: alert and oriented x3, no focal findings Psych: anxious Objective Data Active Medications Acetaminophen (Acetaminophen 325 Mg Tablet) 650 mg PO Q6H PRN PRN Reason: Pain, Mild (Pain Scale 1-3) Last Admin: 07/11/23 17:08 Dose: 650 mg Documented By: NEAL Docusate Sodium (Docusate Sodium 100 Mg Capsule) 100 mg PO DAILY PRN PRN Reason: Constipation Enoxaparin Sodium (Enoxaparin Sodium 40 Mg/0.4 Ml Syringe) 40 mg SUBCUT Q24H [facility] Last Admin: 07/11/23 17:04 Dose: 40 mg Documented By: NEAL Folic Acid (Folic Acid 1 Mg Tablet) 1 mg PO DAILY [facility] Last Admin: 07/12/23 08:09 Dose: 1 mg Documented By: NEAL Pharmacy Consult (Consult Rx Etoh Phenob Im/Po) 1 each MISCELLANE ONCE PRN; Protocol PRN Reason: Consult order Phenobarbital (Phenobarbital 15 Mg Tablet) 15 mg PO BID [facility]; Protocol Stop: 07/12/23 21:01 Last Admin: 07/12/23 08:08 Dose: 15 mg Documented By: NEAL Phenobarbital (Phenobarbital 15 Mg Tablet) 15 mg PO DAILY [facility]; Protocol Stop: 07/14/23 09:01 Sodium Chloride (0.9 % Sodium Chloride Flush 3 Ml Syringe) 3 ml IVFLUSH QSHIFT [facility] Last Admin: 07/12/23 08:08 Dose: 3 ml Documented By: NEAL Thiamine HCl (Thiamine Hcl 100 Mg Tablet) 100 mg PO DAILY [facility] Last Admin: 07/12/23 08:08 Dose: 100 mg Documented By: NEAL Labs 07/12/23 09:08 07/12/23 09:08 Labs: Laboratory Results - last 24 hr 07/12/23 09:08 MCV 99.4 H MCH 33.5 H MCHC 33.7 RDW 14.9 Plt Count 183 D MPV 10.0 Absolute Nucleated RBC 0.000 Nucleated RBC % (auto) 0.0 Anion Gap 11 L Estim Creat Clear Calc 149.4 Estimated GFR > 60 Random Glucose 128 H Calcium 9.4 Magnesium 1.9 Total Bilirubin 0.5 Direct Bilirubin 0.2 AST 210 H ALT 113 H Alkaline Phosphatase 102 Total Creatine Kinase 3503 H Total Protein 8.2 H Albumin 3.6 Assessment and Plan (1) Alcohol withdrawal: Status: Acute (2) Rhabdomyolysis: Status: Acute (3) Alcohol withdrawal seizure: Status: Acute (4) Hypomagnesemia: Status: Acute Plan d5 37yo M with AUD, ILR for hx syncope presented after witnessed generalized seizure, had another seizure in ED admitted for EtOH withdrawal bradycardia with sinus pauses - Cardiology consulted: no pauses on ILR when he had symptoms on Monday; discussed with EPS who also agree with no pacemaker. Plan to remove ILR. EtOH withdrawal with seizure - phenobarbital taper, give 1 extra dose now - seizure precautions AUD - thiamine, folate - Addiction Medicine consultation rhabdomyolysis - suspected due to sz, resume IV fluids, recheck CPK in AM transaminasemia - due to mild EtOH hepatitis and also cross-reactivity with skeletal muscle hypoK - repleted anion gap metabolic acidosis - resolved, likely due to seizure + EtOH thrombocytopenia - resolved, was due to EtOH chronic normocytic anemia - stable, likely due to EtOH VTE ppx - LMWH dispo - homeless, plans to live with brother In my clinical judgment, the patient requires continued inpatient hospitalization for the following reasons: EtOH withdrawal, rhabdomyolysis, telemetry Time Spent With Patient Time: Total time managing care of this patient today ___35_ minutes. Quality Stroke Does the patient have a stroke diagnosis?: No VTE Prior VTE?: No VTE Risk Level:: Medical - moderate - high VTE Device Contraindication: N/A - Device Ordered VTE Drug Contraindication: N/A - Med Ordered
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
[2023-07-12] MEDS: PHENobarbitaL sodium 130 MG/ML VIAL IM Q3Hx2 318 MG IM (11:39)
[2023-07-12] MEDS: 0.9 % Sodium Chloride 1,000 ML 125 ML IVCONT ×2 (11:42→21:11)
--- NOTE | 2023-07-12 13:58 | PM.OP ---
Brief Operative Note Date of Service: 07/12/23 Pre-op diagnosis: Implantable loop recorder in place Post-op diagnosis: same Procedure: Removal of implantable loop recorder Implants: After obtaining consent patient was brought to the minor surgery suite. Patient was laid in supine position on the operating table. The precordial area was then prepped and draped in a sterile fashion. The implantable loop recorder was then identified. 2% lidocaine with epinephrine was then injected intradermally and subcutaneously around the device. A small incision was then made at the head of the device. The device was then removed with help of a Zahra forceps. The wound was then closed with Steri-Strips and pressure dressing applied. Patient tolerated procedure well Surgeon: See Aguirre MD Anesthesia: local Was an Security Architect used for this Procedure?: No Security Architect: Semaj Magaña Estimated blood loss (mL): 1 Pathology: none sent Condition: stable Disposition: floor
[2023-07-12] MEDS: Acetaminophen 325 MG TABLET 650 MG PO (14:23)
[2023-07-12] MEDS: Enoxaparin Sodium 40 MG/0.4 ML SYRINGE SUBCUT (17:24)
[2023-07-13] VITALS (7 sets, daily range): BP systolic 114–144; BP diastolic 64–88; PULSE 65–89; RESP 15–20; TEMP 36.7–37.1; O2SAT 97–100
[2023-07-13] MEDS: 0.9 % Sodium Chloride 1,000 ML 125 ML IVCONT ×3 (04:51→22:04)
[2023-07-13] MEDS: PHENobarbitaL 15 MG TABLET PO (08:51)
[2023-07-13] MEDS: Folic Acid 1 MG TABLET PO (08:51)
[2023-07-13] MEDS: Thiamine HCL 100 MG TABLET PO (08:51)
[2023-07-13] MEDS: 0.9 % Sodium Chloride Flush 3 ML SYRINGE IVFLUSH (08:52)
[2023-07-13] MEDS: Acetaminophen 325 MG TABLET 650 MG PO ×2 (08:54→15:59)
--- NOTE | 2023-07-13 10:19 | MHC.CM.PN ---
PT is recommending STR and CM will continue to follow.
--- NOTE | 2023-07-13 10:28 | P.PNIM_ITS ---
Subjective Subjective Date of Service: 07/13/23 Interval History: bradycardic while sleeping less shaky very weak, poor balance Review of Systems Review of Systems: Yes all other systems are reviewed and are negative Physical Exam 2 Vital Signs: Vital Signs: Last Vital Signs Temp 98.8 F 07/13/23 07:17 Pulse 65 07/13/23 10:05 Resp 20 07/13/23 07:17 BP 125/82 07/13/23 10:05 Pulse Ox 97 07/13/23 10:05 O2 Del Method Room Air 07/13/23 07:17 BMI result Body Mass Index 25.1 Gen: in no acute distress HEENT: sclera anicteric, moist mucus membranes Neck: supple Lungs: clear to auscultation bilaterally Heart: regular rate and rhythm, no murmurs Abd: soft, non-tender, non-distended Ext: no edema Skin: warm/well-perfused Neuro: alert and oriented x3, no focal findings Psych: appropriate affect Objective Data Active Medications Acetaminophen (Acetaminophen 325 Mg Tablet) 650 mg PO Q6H PRN PRN Reason: Pain, Mild (Pain Scale 1-3) Last Admin: 07/13/23 08:54 Dose: 650 mg Documented By: LASHON Docusate Sodium (Docusate Sodium 100 Mg Capsule) 100 mg PO DAILY PRN PRN Reason: Constipation Enoxaparin Sodium (Enoxaparin Sodium 40 Mg/0.4 Ml Syringe) 40 mg SUBCUT Q24H [facility] Last Admin: 07/12/23 17:24 Dose: 40 mg Documented By: HESHAM Folic Acid (Folic Acid 1 Mg Tablet) 1 mg PO DAILY [facility] Last Admin: 07/13/23 08:51 Dose: 1 mg Documented By: LASHON Sodium Chloride (Ns) 1,000 mls @ 125 mls/hr IVCONT .Q8H [facility] Last Admin: 07/13/23 04:51 Dose: 125 mls/hr Documented By: ARTIE Pharmacy Consult (Consult Rx Etoh Phenob Im/Po) 1 each MISCELLANE ONCE PRN; Protocol PRN Reason: Consult order Phenobarbital (Phenobarbital 15 Mg Tablet) 15 mg PO DAILY [facility]; Protocol Stop: 07/14/23 09:01 Last Admin: 07/13/23 08:51 Dose: 15 mg Documented By: LASHON Sodium Chloride (0.9 % Sodium Chloride Flush 3 Ml Syringe) 3 ml IVFLUSH QSHIFT [facility] Last Admin: 07/13/23 08:52 Dose: 3 ml Documented By: LASHON Thiamine HCl (Thiamine Hcl 100 Mg Tablet) 100 mg PO DAILY [facility] Last Admin: 07/13/23 08:51 Dose: 100 mg Documented By: LASHON Labs 07/12/23 09:08 07/12/23 09:08 Labs: Laboratory Results - last 24 hr 07/13/23 07:04 Total Creatine Kinase 2779 H Assessment and Plan (1) Alcohol withdrawal: Status: Acute (2) Rhabdomyolysis: Status: Acute (3) Alcohol withdrawal seizure: Status: Acute (4) Hypomagnesemia: Status: Acute Plan d6 37yo M with AUD, ILR for hx syncope presented after witnessed generalized seizure, had another seizure in ED admitted for EtOH withdrawal bradycardia with sinus pauses - Cardiology consulted: no pauses on ILR when he had symptoms on Monday; no correlation between syncopal episodes and pauses; discussed with EPS who also agree with no pacemaker. ILR removed yesterday - should have outpt PSG EtOH withdrawal with seizure - continue phenobarbital taper - seizure precautions AUD - thiamine, folate - Addiction Medicine consultation pending rhabdomyolysis - suspected due to sz or cocaine, resumed IV fluids, recheck CPK in AM transaminasemia - due to mild EtOH hepatitis and also cross-reactivity with skeletal muscle hypoK - repleted anion gap metabolic acidosis - resolved, likely due to seizure + EtOH thrombocytopenia - resolved, was due to EtOH chronic normocytic anemia - stable, likely due to EtOH VTE ppx - LMWH dispo - homeless, STR recommended due to balance/strength deficits In my clinical judgment, the patient requires continued inpatient hospitalization for the following reasons: EtOH withdrawal, rhabdomyolysis Time Spent With Patient Time: Total time managing care of this patient today ___35_ minutes. Quality Stroke Does the patient have a stroke diagnosis?: No VTE Prior VTE?: No VTE Risk Level:: Medical - moderate - high VTE Device Contraindication: N/A - Device Ordered VTE Drug Contraindication: N/A - Med Ordered
[2023-07-13] MEDS: Enoxaparin Sodium 40 MG/0.4 ML SYRINGE SUBCUT (18:04)
[2023-07-14] MEDS: Acetaminophen 325 MG TABLET 650 MG PO ×2 (00:10→12:58)
[2023-07-14] MEDS: 0.9 % Sodium Chloride Flush 3 ML SYRINGE IVFLUSH ×2 (00:11→09:01)
[2023-07-14 03:50] VITALS: BP 147/73; PULSE 72; RESP 18; TEMP 37; O2SAT 98
[2023-07-14] MEDS: 0.9 % Sodium Chloride 1,000 ML 125 ML IVCONT ×3 (06:31→21:54)
[2023-07-14 07:39] VITALS: BP 142/89; PULSE 61; RESP 15; TEMP 37.2; O2SAT 100
[2023-07-14 08:11] LABS: Anion Gap 14 (12-20); Blood Urea Nitrogen 7 mg/dL (9-16); Calcium 8.8 mg/dL (8.4-10.2); Carbon Dioxide 25 mmol/L (22-29); Chloride 104 mmol/L (96-108); Creatinine Clr Calc Pharmacy 164.1; Estimated Glomerular Filt Rate > 60; Glucose Random 86 mg/dL (60-115); Potassium 3.8 mmol/L (3.3-5.1); Sodium 139 mmol/L (135-145)
[2023-07-14] MEDS: Thiamine HCL 100 MG TABLET PO (09:01)
[2023-07-14] MEDS: Folic Acid 1 MG TABLET PO (09:01)
[2023-07-14] MEDS: PHENobarbitaL 15 MG TABLET PO (09:02)
--- NOTE | 2023-07-14 10:32 | P.PNIM_ITS ---
Subjective Subjective Date of Service: 07/14/23 Interval History: weak, unbalanced Review of Systems Review of Systems: Yes all other systems are reviewed and are negative Physical Exam 2 Vital Signs: Vital Signs: Last Vital Signs Temp 98.9 F 07/14/23 07:39 Pulse 61 07/14/23 07:39 Resp 15 07/14/23 07:39 BP 142/89 H 07/14/23 07:39 Pulse Ox 100 07/14/23 07:39 O2 Del Method Nasal Cannula 07/14/23 07:39 O2 Flow Rate 2 07/14/23 07:39 BMI result Body Mass Index 25.1 Gen: weak, disheveled HEENT: sclera anicteric, moist mucus membranes Neck: supple Lungs: clear to auscultation bilaterally Heart: regular rate and rhythm, no murmurs Abd: soft, non-tender, non-distended Ext: no edema Skin: warm/well-perfused Neuro: alert and oriented x3, no focal findings Psych: appropriate affect Objective Data Active Medications Acetaminophen (Acetaminophen 325 Mg Tablet) 650 mg PO Q6H PRN PRN Reason: Pain, Mild (Pain Scale 1-3) Last Admin: 07/14/23 00:10 Dose: 650 mg Documented By: JOSE Docusate Sodium (Docusate Sodium 100 Mg Capsule) 100 mg PO DAILY PRN PRN Reason: Constipation Enoxaparin Sodium (Enoxaparin Sodium 40 Mg/0.4 Ml Syringe) 40 mg SUBCUT Q24H [facility] Last Admin: 07/13/23 18:04 Dose: 40 mg Documented By: ARTEMIO Folic Acid (Folic Acid 1 Mg Tablet) 1 mg PO DAILY [facility] Last Admin: 07/14/23 09:01 Dose: 1 mg Documented By: LASHON Sodium Chloride (Ns) 1,000 mls @ 125 mls/hr IVCONT .Q8H [facility] Last Admin: 07/14/23 06:31 Dose: 125 mls/hr Documented By: VERONICA Pharmacy Consult (Consult Rx Etoh Phenob Im/Po) 1 each MISCELLANE ONCE PRN; Protocol PRN Reason: Consult order Sodium Chloride (0.9 % Sodium Chloride Flush 3 Ml Syringe) 3 ml IVFLUSH QSHIFT [facility] Last Admin: 07/14/23 09:01 Dose: 3 ml Documented By: LASHON Thiamine HCl (Thiamine Hcl 100 Mg Tablet) 100 mg PO DAILY [facility] Last Admin: 07/14/23 09:01 Dose: 100 mg Documented By: LASHON Labs 07/12/23 09:08 07/14/23 07:06 Labs: Laboratory Results - last 24 hr 07/14/23 07:06 Anion Gap 14 Estim Creat Clear Calc 164.1 Estimated GFR > 60 Random Glucose 86 Calcium 8.8 D Magnesium 2.0 Total Creatine Kinase 1754 H Assessment and Plan (1) Alcohol withdrawal: Status: Acute (2) Rhabdomyolysis: Status: Acute (3) Alcohol withdrawal seizure: Status: Acute (4) Hypomagnesemia: Status: Acute Plan d7 37yo M with AUD, ILR for hx syncope presented after witnessed generalized seizure, had another seizure in ED admitted for EtOH withdrawal bradycardia with sinus pauses - Cardiology consulted: no pauses on ILR when he had symptoms on Monday; no correlation between syncopal episodes and pauses; discussed with EPS who also agree with no pacemaker. ILR removed yesterday - should have outpt PSG EtOH withdrawal with seizure - continue phenobarbital taper - seizure precautions AUD - thiamine, folate - Addiction Medicine consultation pending rhabdomyolysis - suspected due to sz or cocaine, continue saline diuresis, recheck CPK in AM transaminasemia - due to mild EtOH hepatitis and also cross-reactivity with skeletal muscle hypoK - repleted anion gap metabolic acidosis - resolved, likely due to seizure + EtOH thrombocytopenia - resolved, was due to EtOH chronic normocytic anemia - stable, likely due to EtOH VTE ppx - LMWH dispo - homeless, STR recommended due to balance/strength deficits In my clinical judgment, the patient requires continued inpatient hospitalization for the following reasons: IV fluids for rhabdomyolysis Time Spent With Patient Time: Total time managing care of this patient today __35__ minutes. Quality Stroke Does the patient have a stroke diagnosis?: No VTE Prior VTE?: No VTE Risk Level:: Medical - moderate - high VTE Device Contraindication: N/A - Device Ordered VTE Drug Contraindication: N/A - Med Ordered
--- NOTE | 2023-07-14 10:50 | MHC.CM.PN ---
EMR reviewed and per MD round,s pt is not medically cleared for D/C and will need 1 more day of IV fluids for rhabdomyolysis. Anticipating pt will likely discharge tomorrow. CM will continue to follow.
[2023-07-14 11:13] VITALS: BP 136/88; PULSE 69; RESP 14; TEMP 36.4; O2SAT 97
--- NOTE | 2023-07-14 12:12 | MHC.RECOVRN ---
Met with pt in 469 after consult placed to Addiction Medicine for alcohol use. Pt had presented to ED after seizure and subsequently admitted for management of alcohol withdrawal as well as rhabdomyolysis. Pt sitting in bed, awake, alert, easily engages in conversation. Pt reports drinking 6 25 oz beers daily as well as 8 nips Smirnoff x 1 year. Pt reports longest period in recovery was 7 months while at [facility]. Pt does not find AA helpful. Pt reports hx naltrexone and Vivitrol, did not find it helpful, states I still drank and the shot hurt. Discussed other recovery supports, pt interested in acamprosate. Discussed with provider, plan to initiate during admission. Pt provided with list of area providers to f/u with after STR as well as [facility] information. Pt provided with other recovery resources as well as t/w contact information. Denies questions or concerns at this time.
[2023-07-14 14:36] VITALS: BP 136/88; PULSE 69; O2SAT 97
[2023-07-14 14:57] VITALS: BP 138/86; PULSE 76; RESP 20; TEMP 37.1; O2SAT 98
[2023-07-14] MEDS: Acamprosate Calcium 333 MG TABLET.DR 666 MG PO ×2 (17:12→21:54)
[2023-07-14] MEDS: Enoxaparin Sodium 40 MG/0.4 ML SYRINGE SUBCUT (17:13)
[2023-07-14 19:01] VITALS: BP 128/80; PULSE 86; RESP 20; TEMP 36.7; O2SAT 97
[2023-07-15] VITALS (7 sets, daily range): BP systolic 119–146; BP diastolic 78–93; PULSE 58–78; RESP 14–22; TEMP 36.2–37.1; O2SAT 97–98
[2023-07-15] MEDS: 0.9 % Sodium Chloride 1,000 ML 125 ML IVCONT ×3 (06:03→21:47)
[2023-07-15 06:40] LABS: Alanine Aminotransferase 88 U/L (0-40); Albumin Level 3.5 g/dL (3.5-5.0); Alkaline Phosphatase 98 U/L (39-117); Aspartate Amino Transferase 102 U/L (5-37); Bilirubin Direct < 0.2 mg/dL (0.0-0.5); Bilirubin Total 0.2 mg/dL (0.0-1.0); Total Protein 7.5 g/dL (6.5-8.0)
--- NOTE | 2023-07-15 09:17 | HO.PM.IMPN ---
Subjective Subjective Date of Service: 07/15/23 Interval History: still weak, unbalanced started on acamprosate, committed to sobriety Review of Systems Review of Systems: Yes all other systems are reviewed and are negative Physical Exam Vital Signs: Vital Signs: Last Vital Signs Temp 98.5 F 07/15/23 07:54 Pulse 58 07/15/23 07:54 Resp 18 07/15/23 07:54 BP 128/78 07/15/23 07:54 Pulse Ox 98 07/15/23 07:54 O2 Del Method Room Air 07/15/23 07:54 O2 Flow Rate 2 07/14/23 07:39 BMI result Body Mass Index 25.1 Gen: weak, disheveled HEENT: sclera anicteric, moist mucus membranes Neck: supple Lungs: clear to auscultation bilaterally Heart: regular rate and rhythm, no murmurs Abd: soft, non-tender, non-distended Ext: no edema Skin: warm/well-perfused Neuro: alert and oriented x3, no focal findings Psych: appropriate affect Objective Data Active Medications Acamprosate (Acamprosate Calcium 333 Mg Tablet.) 666 mg PO TID [facility] Last Admin: 07/14/23 21:54 Dose: 666 mg Documented By: MATT Acetaminophen (Acetaminophen 325 Mg Tablet) 650 mg PO Q6H PRN PRN Reason: Pain, Mild (Pain Scale 1-3) Last Admin: 07/14/23 12:58 Dose: 650 mg Documented By: LASHON Docusate Sodium (Docusate Sodium 100 Mg Capsule) 100 mg PO DAILY PRN PRN Reason: Constipation Enoxaparin Sodium (Enoxaparin Sodium 40 Mg/0.4 Ml Syringe) 40 mg SUBCUT Q24H [facility] Last Admin: 07/14/23 17:13 Dose: 40 mg Documented By: MATT Folic Acid (Folic Acid 1 Mg Tablet) 1 mg PO DAILY [facility] Last Admin: 07/14/23 09:01 Dose: 1 mg Documented By: LASHON Sodium Chloride (Ns) 1,000 mls @ 125 mls/hr IVCONT .Q8H [facility] Last Admin: 07/15/23 06:03 Dose: 125 mls/hr Documented By: ZELALEM Pharmacy Consult (Consult Rx Etoh Phenob Im/Po) 1 each MISCELLANE ONCE PRN; Protocol PRN Reason: Consult order Sodium Chloride (0.9 % Sodium Chloride Flush 3 Ml Syringe) 3 ml IVFLUSH QSHIFT [facility] Last Admin: 07/15/23 00:11 Dose: Not Given Documented By: ZELALEM Non-Admin Reason: IV Running Thiamine HCl (Thiamine Hcl 100 Mg Tablet) 100 mg PO DAILY [facility] Last Admin: 07/14/23 09:01 Dose: 100 mg Documented By: LASHON Labs 07/12/23 09:08 07/14/23 07:06 Labs: Laboratory Results - last 24 hr 07/15/23 05:53 Hold Purple Top SEE NOTE Total Bilirubin 0.2 Direct Bilirubin < 0.2 AST 102 H ALT 88 H Alkaline Phosphatase 98 Total Creatine Kinase 1010 H Total Protein 7.5 Albumin 3.5 Assessment and Plan (1) Alcohol withdrawal: Status: Acute (2) Rhabdomyolysis: Status: Acute (3) Alcohol withdrawal seizure: Status: Acute (4) Hypomagnesemia: Status: Acute Plan d8 37yo M with AUD, ILR for hx syncope presented after witnessed generalized seizure, had another seizure in ED admitted for EtOH withdrawal found to have sinus pauses + rhabdomyolysis bradycardia with sinus pauses - Cardiology consulted: no pauses on ILR when he had symptoms on Monday; no correlation between syncopal episodes and pauses; discussed with EPS who also agree with no pacemaker. 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 Quality Stroke Does the patient have a stroke diagnosis?: No VTE Prior VTE?: No VTE Risk Level:: Medical - moderate - high VTE Device Contraindication: N/A - Device Ordered VTE Drug Contraindication: N/A - Med Ordered
[2023-07-15] MEDS: Acetaminophen 325 MG TABLET 650 MG PO ×2 (09:19→21:43)
[2023-07-15] MEDS: 0.9 % Sodium Chloride Flush 3 ML SYRINGE IVFLUSH ×2 (09:20→16:02)
[2023-07-15] MEDS: Folic Acid 1 MG TABLET PO (09:20)
[2023-07-15] MEDS: Acamprosate Calcium 333 MG TABLET.DR 666 MG PO ×3 (09:20→21:39)
[2023-07-15] MEDS: Thiamine HCL 100 MG TABLET PO (09:20)
[2023-07-15] MEDS: Enoxaparin Sodium 40 MG/0.4 ML SYRINGE SUBCUT (17:45)
[2023-07-16 03:03] VITALS: BP 110/72; PULSE 57; RESP 20; TEMP 36.4; O2SAT 96
--- NOTE | 2023-07-16 04:03 | PC.NURSE ---
Acquired care at 1915. Pt was up in a recliner. Awake and watching tv. CIWA of 1. C/o mild headache. Given tylenol. NSR on monitor. Pt had intermittent pauses when he was asleep. Needed to be waken up so HR will normalized. Hospitalist notified and aware. Pt is asymptomatic. Lowest HR is on the 30's.
[2023-07-16] MEDS: 0.9 % Sodium Chloride 1,000 ML 125 ML IVCONT (05:10)
[2023-07-16 07:49] VITALS: BP 133/83; PULSE 57; RESP 18; TEMP 36.3; O2SAT 98
[2023-07-16] MEDS: Thiamine HCL 100 MG TABLET PO (09:07)
[2023-07-16] MEDS: Acamprosate Calcium 333 MG TABLET.DR 666 MG PO ×3 (09:07→19:54)
[2023-07-16] MEDS: 0.9 % Sodium Chloride Flush 3 ML SYRINGE IVFLUSH ×3 (09:07→19:54)
[2023-07-16] MEDS: Folic Acid 1 MG TABLET PO (09:07)
[2023-07-16] MEDS: Acetaminophen 325 MG TABLET 650 MG PO ×2 (09:08→15:32)
--- NOTE | 2023-07-16 11:07 | HO.PM.IMPN ---
Subjective Subjective Date of Service: 07/16/23 Interval History: no pain feels weak not tremulous Review of Systems Review of Systems: Yes all other systems are reviewed and are negative Physical Exam Vital Signs: Vital Signs: Last Vital Signs Temp 97.3 F 07/16/23 07:49 Pulse 57 07/16/23 07:49 Resp 18 07/16/23 07:49 BP 133/83 07/16/23 07:49 Pulse Ox 98 07/16/23 07:49 O2 Del Method Room Air 07/16/23 07:49 O2 Flow Rate 2 07/14/23 07:39 BMI result Body Mass Index 25.1 Gen: weak, disheveled, NAD HEENT: sclera anicteric, moist mucus membranes Neck: supple Lungs: clear to auscultation bilaterally Heart: regular rate and rhythm, no murmurs Abd: soft, non-tender, non-distended Ext: no edema Skin: warm/well-perfused Neuro: alert and oriented x3, no focal findings Psych: appropriate affect Objective Data Active Medications Acamprosate (Acamprosate Calcium 333 Mg Tablet.) 666 mg PO TID COUNT INCLUDES THE [facility] Last Admin: 07/16/23 09:07 Dose: 666 mg Documented By: LASHON Acetaminophen (Acetaminophen 325 Mg Tablet) 650 mg PO Q6H PRN PRN Reason: Pain, Mild (Pain Scale 1-3) Last Admin: 07/16/23 09:08 Dose: 650 mg Documented By: LASHON Docusate Sodium (Docusate Sodium 100 Mg Capsule) 100 mg PO DAILY PRN PRN Reason: Constipation Enoxaparin Sodium (Enoxaparin Sodium 40 Mg/0.4 Ml Syringe) 40 mg SUBCUT Q24H COUNT INCLUDES THE [facility] Last Admin: 07/15/23 17:45 Dose: 40 mg Documented By: RAJEEV Folic Acid (Folic Acid 1 Mg Tablet) 1 mg PO DAILY COUNT INCLUDES THE [facility] Last Admin: 07/16/23 09:07 Dose: 1 mg Documented By: LASHON Pharmacy Consult (Consult Rx Etoh Phenob Im/Po) 1 each MISCELLANE ONCE PRN; Protocol PRN Reason: Consult order Sodium Chloride (0.9 % Sodium Chloride Flush 3 Ml Syringe) 3 ml IVFLUSH QSHIFT COUNT INCLUDES THE [facility] Last Admin: 07/16/23 09:07 Dose: 3 ml Documented By: LASHON Thiamine HCl (Thiamine Hcl 100 Mg Tablet) 100 mg PO DAILY ERIS Last Admin: 07/16/23 09:07 Dose: 100 mg Documented By: LASHON Labs 07/12/23 09:08 07/14/23 07:06 Labs: Laboratory Results - last 24 hr 07/16/23 05:50 Hold Purple Top SEE NOTE Total Creatine Kinase 617 H Assessment and Plan (1) Alcohol withdrawal: Status: Acute (2) Rhabdomyolysis: Status: Acute (3) Alcohol withdrawal seizure: Status: Acute (4) Hypomagnesemia: Status: Acute Plan d9 37yo M with AUD, ILR for hx syncope presented after witnessed generalized seizure, had another seizure in ED admitted for EtOH withdrawal found to have sinus pauses + rhabdomyolysis bradycardia with sinus pauses - Cardiology consulted: no pauses on ILR when he had symptoms on Monday; no correlation between syncopal episodes and pauses; discussed with EPS who also agree with no pacemaker. ILR removed yesterday - needs outpt PSG EtOH withdrawal with seizure - completed phenobarbital taper - seizure precautions AUD - thiamine, folate - Addiction Medicine consulted; started acamprosate rhabdomyolysis - suspected due to sz or cocaine, resolved with saline diuresis transaminasemia - due to mild EtOH hepatitis and also cross-reactivity with skeletal muscle; improved cocaine abuse - screen HCV + HIV [he is HBV-immune] hypoK - repleted anion gap metabolic acidosis - resolved, likely due to seizure + EtOH thrombocytopenia - resolved, was due to EtOH chronic normocytic anemia - stable, likely due to EtOH VTE ppx - LMWH dispo - homeless, STR recommended due to balance/strength deficits, [facility] following, ready for d/c In my clinical judgment, the patient requires continued inpatient hospitalization for the following reasons: placement Time Spent With Patient Time: Total time managing care of this patient today ___35_ minutes. Quality Stroke Does the patient have a stroke diagnosis?: No VTE Prior VTE?: No VTE Risk Level:: Medical - moderate - high VTE Device Contraindication: N/A - Device Ordered VTE Drug Contraindication: N/A - Med Ordered
--- NOTE | 2023-07-16 11:09 | PM.DS ---
DS: Providers Provider Date of Service: 07/16/23 Date of admission: 07/08/23 16:40 Date of discharge: 07/16/23 Primary care physician: None Physician Consults: 07/08/23 16:40 Addiction Medicine Routine Consulting Provider: Addiction Covering Reason for consultation: EtOh W/D, cocaine Has provider been notified: No 07/11/23 12:07 Consult to Cardiology Routine Consulting Provider: [facility] Reason for consultation: bradycardia, sinus pause 07/14/23 09:28 Addiction Medicine Routine Consulting Provider: Addiction Covering Reason for consultation: AUD DS: Diagnosis Discharge Diagnosis (1) Alcohol withdrawal: Status: Inactive (2) Rhabdomyolysis: Status: Inactive (3) Alcohol withdrawal seizure: Status: Inactive (4) Hypomagnesemia: Status: Inactive (5) Cocaine use: Status: Inactive (6) Hypokalemia: Status: Resolved DS: Summary Hospital Course Hospital Course: HPI from H+P, 07/08/23, by hospitalist AMADA Grace: this is a 30-year-old male with history of alcohol dependence, history of alcohol withdrawal and alcohol withdrawal seizures who was brought to the emergency department for evaluation of a seizure. He reportedly had an unwitnessed seizure followed by a seizure that was witnessed by his brother who called the ambulance. After arrival to the emergency department he had a witnessed tonic-clonic seizure lasting approximately 1 minute with associated postictal period. He received a dose of IV Ativan and was then started on phenobarbital protocol. He received IV fluid as well as potassium supplementation for potassium level of 3.2. CPK was 1436, LFTs somewhat elevated. he had brain CT with IV contrast which showed no evidence of intracranial space-occupying lesion, bleed or infarct, there was area of encephalomalacia in the right frontoparietal region which could be sequela of old brain injury which is unchanged. patient was awake, alert and has no specific complaints. He reports drinking 6 large beers daily as well as Smirnoff vodka. 37yo homeless M with AUD with an ILR in place for years for hx syncope who presented after a witnessed generalized seizure and had another seizure in ED. He was admitted to the [facility] for EtOH withdrawal seizures and was found to have sinus pauses + rhabdomyolysis. Hospital course by problem: bradycardia with sinus pauses - Cardiology consulted: no pauses on ILR when he had symptoms and no correlation between syncopal episodes and pauses, so no PPM recommended; they discussed with EPS who also agree with no pacemaker. the ILR was removed this admission. he, however, should have an outpt polysomnography to rule out RAND EtOH withdrawal with seizure - completed phenobarbital taper AUD - to continue thiamine, folate; Addiction Medicine consulted; started acamprosate; needs follow-up at [facility] rhabdomyolysis without renal injury - suspected due to seizure or cocaine; resolved with saline diuresis transaminasemia - due to mild EtOH hepatitis and also cross-reactivity with skeletal muscle; improved cocaine abuse - screen HCV + HIV nonreactive [he is HBV-immune] hypoK - repleted hypomagnesemia - repleted anion gap metabolic acidosis - resolved, likely due to seizure + EtOH thrombocytopenia - resolved, was due to EtOH Due to weakness and imbalance, he was discharged to [facility] for short-term rehabilitation for less than 30 days. Time Spent with Patient Time attestation: Total time managing care of this patient today _40___ minutes. Discharge coordination time: Greater than 30 minutes Quality: Safe Use of Opioids Does Pt have an Active Cancer Diagnosis on the Problem List?: No Quality: Stroke Does the patient have a stroke diagnosis?: No Physical Exam Vital Signs: Vital Signs: Last Vital Signs Temp 97.3 F 07/16/23 07:49 Pulse 57 07/16/23 07:49 Resp 18 07/16/23 07:49 BP 133/83 07/16/23 07:49 Pulse Ox 98 07/16/23 07:49 O2 Del Method Room Air 07/16/23 07:49 O2 Flow Rate 2 07/14/23 07:39 BMI result Body Mass Index 25.1 Gen: weak, disheveled, NAD HEENT: sclera anicteric, moist mucus membranes Neck: supple Lungs: clear to auscultation bilaterally Heart: regular rate and rhythm, no murmurs Abd: soft, non-tender, non-distended Ext: no edema Skin: warm/well-perfused Neuro: alert and oriented x3, no focal findings Psych: appropriate affect DS: Data Data Completed and Pending Completed studies during hospitalization [Text1]: Laboratory Results WBC 6.2 X10*3/uL (4.8-10.8) 07/12/23 09:08 RBC 3.61 X10*6/uL (4.60-5.80) L 07/12/23 09:08 Hgb 12.1 g/dl (14.0-18.0) L 07/12/23 09:08 Hct 35.9 % (42.0-52.0) L 07/12/23 09:08 MCV 99.4 fL (80.0-98.0) H 07/12/23 09:08 MCH 33.5 pg (27.0-33.0) H 07/12/23 09:08 MCHC 33.7 g/dl (31.0-36.0) 07/12/23 09:08 RDW 14.9 % (11.0-16.0) 07/12/23 09:08 Plt Count 183 X10*3/uL (160-400) D 07/12/23 09:08 MPV 10.0 fL (9.4-12.4) 07/12/23 09:08 Immature Gran % (Auto) 1.3 % (0.0-0.4) H 07/08/23 09:16 Neut % (Auto) 67.5 % (45-73) 07/08/23 09:16 Lymph % (Auto) 15.0 % (20-40) L 07/08/23 09:16 [place] % (Auto) 14.7 % (2-11) H 07/08/23 09:16 Eos % (Auto) 0.9 % (0-4) 07/08/23 09:16 Baso % (Auto) 0.6 % (0-2) 07/08/23 09:16 Lymph # (Auto) 1.0 X10*3/uL (1.2-4.9) L 07/08/23 09:16 [place] # (Auto) 0.9 X10*3/uL (0.1-1.2) 07/08/23 09:16 Eos # (Auto) 0.1 X10*3/uL (0.0-0.4) 07/08/23 09:16 Baso # (Auto) 0.0 X10*3/uL (0.0-0.2) 07/08/23 09:16 Abs Immat Gran (auto) 0.08 X10*3/uL (0.00-0.03) H 07/08/23 09:16 Absolute Neuts (auto) 4.3 x10*3/uL (2.0-8.3) 07/08/23 09:16 Absolute Nucleated RBC 0.000 X10*3/uL (0.0-0.012) 07/12/23 09:08 Nucleated RBC % (auto) 0.0 /100WBC (0.0-0.2) 07/12/23 09:08 Hold Purple Top SEE NOTE 07/16/23 05:50 PT 12.4 SEC (11.1-13.3) 07/08/23 09:16 INR 1.0 (0.9-1.1) 07/08/23 09:16 APTT 28.4 SEC (26.0-36.4) 07/08/23 09:16 Sodium 139 mmol/L (135-145) 07/14/23 07:06 Potassium 3.8 mmol/L (3.3-5.1) 07/14/23 07:06 Chloride 104 mmol/L (96-108) 07/14/23 07:06 Carbon Dioxide 25 mmol/L (22-29) 07/14/23 07:06 Anion Gap 14 (12-20) 07/14/23 07:06 BUN 7 mg/dL (9-16) L 07/14/23 07:06 Creatinine 0.61 mg/dL (0.5-1.4) 07/14/23 07:06 Estim Creat Clear Calc 164.1 07/14/23 07:06 Estimated GFR > 60 07/14/23 07:06 Random Glucose 86 mg/dL (60-115) 07/14/23 07:06 Calcium 8.8 mg/dL (8.4-10.2) D 07/14/23 07:06 Magnesium 2.0 mg/dL (1.6-2.6) 07/14/23 07:06 Total Bilirubin 0.2 mg/dL (0.0-1.0) 07/15/23 05:53 Direct Bilirubin < 0.2 mg/dL (0.0-0.5) 07/15/23 05:53 AST 102 U/L (5-37) H 07/15/23 05:53 ALT 88 U/L (0-40) H 07/15/23 05:53 Alkaline Phosphatase 98 U/L (39-117) 07/15/23 05:53 Total Creatine Kinase 617 U/L (38-174) H 07/16/23 05:50 Total Protein 7.5 g/dL (6.5-8.0) 07/15/23 05:53 Albumin 3.5 g/dL (3.5-5.0) 07/15/23 05:53 Lipase 134 U/L (8-78) H 07/08/23 09:16 Urine Opiates Screen Not Detected (Not Detect) 07/08/23 12:25 Urine Fentanyl Screen Not Detected (Not Detect) 07/08/23 12:25 Ur Barbiturates Screen Not Detected (Not Detect) 07/08/23 12:25 Ur Phencyclidine Scrn Not Detected (Not Detect) 07/08/23 12:25 Ur Amphetamines Screen Not Detected (Not Detect) 07/08/23 12:25 U Benzodiazepines Scrn Not Detected (Not Detect) 07/08/23 12:25 Urine Cocaine Screen POSITIVE (Not Detect) H 07/08/23 12:25 U Marijuana (THC) Screen Not Detected (Not Detect) 07/08/23 12:25 Ethyl Alcohol 76 mg/dL 07/08/23 09:16 COVID-19 (DARRYL) Negative (Negative) 07/08/23 09:16 COVID-19 Clin Com See Note 07/08/23 09:16 Impressions Chest X-Ray 07/08/23 09:40 IMPRESSION: No radiographic evidence of acute cardiopulmonary disease. Head CT 07/08/23 09:55 IMPRESSION: * No CT evidence of intracranial space-occupying mass, bleed or infarct. * There is an area of encephalomalacia in the right frontoparietal region might be a sequela of an old brain injury unchanged. * Mucosal thickening of paranasal sinuses. Discharge Plan Discharge Anticipated Discharge Date/Time: 07/16/23 11:02 Patient Disposition: Xfer SNF Discharge Diagnosis: alcohol withdrawal seizure alcohol use disorder cocaine abuse rhabdomyolysis Referrals: ANU Primary Simone Nelson [Provider Group] - 1 Week [facility] [Outside] - 1 Day (short term rehab) Physician,Rafi [Primary Care Provider] - 1 Week Nan Meehan CNP [Nurse Practitioner] - 1 Week Discharge Medications: New folic acid 1 mg Tablet 1 mg PO DAILY Qty: 30 0RF acamprosate 333 mg Tablet,Delayed Release (Dr/Ec) 666 mg PO TID Qty: 180 0RF thiamine mononitrate (vit B1) 100 mg Tablet 100 mg PO DAILY Qty: 30 0RF ibuprofen 400 mg Tablet 400 mg PO Q6H PRN (Reason: Pain, Moderate(Pain Scale 4-6)) Qty: 30 0RF Discharge Orders: Discharge Order (Routine); Ordered 07/19/23 Ordered By: Betty Hooper Diet: Advance to usual diet Activity on Discharge: As tolerated Stand Alone Forms: Patient Portal Discharge page Care Plan Goals: sobriety Health Concerns: alcohol withdrawal seizure alcohol use disorder cocaine abuse rhabdomyolysis Plan of Treatment: STR for less than 30 days maintain sobriety take acamprosate 666 mg 3x a day and follow up with [facility] establish primary care JUAQUIN Assessment: See Discharge Summary. Discharge Date/Time: 07/19/23 13:00
[2023-07-16 11:18] VITALS: BP 125/82; PULSE 73; RESP 18; TEMP 36.8; O2SAT 97
--- NOTE | 2023-07-16 11:27 | MHC.CM.PN ---
MD inquire RE if [facility] is offering a bed for Pt.; this RNCM reached out via [email or web address] requesting final determination. Pending response. CM to follow.
[2023-07-16 15:27] VITALS: BP 117/72; PULSE 85; RESP 22; TEMP 37; O2SAT 98
--- NOTE | 2023-07-16 15:54 | MHC.CM.PN ---
Still no response from Center; second reach out attempt made and unanswered. Reported to MD. CANO to follow.
[2023-07-16] MEDS: Enoxaparin Sodium 40 MG/0.4 ML SYRINGE SUBCUT (18:37)
[2023-07-16 18:45] VITALS: BP 116/76; PULSE 73; RESP 22; TEMP 37; O2SAT 100
[2023-07-16 23:22] VITALS: BP 123/78; PULSE 75; RESP 18; TEMP 36.9; O2SAT 97
[2023-07-17 03:10] VITALS: BP 106/62; PULSE 58; RESP 18; TEMP 36.8; O2SAT 96
[2023-07-17 07:05] VITALS: BP 109/69; PULSE 55; RESP 20; TEMP 36.6; O2SAT 96
[2023-07-17 08:23] LABS: HIV AB/AG Nonreactive (Nonreactive); HIV Num 1 0.06 S/CO (0.00-0.99); ~HepC Num1 0.15 S/CO (0.00-0.79); ~Hepatitis C Antibody Nonreactive (Nonreactive)
[2023-07-17] MEDS: 0.9 % Sodium Chloride Flush 3 ML SYRINGE IVFLUSH ×2 (08:50→17:30)
[2023-07-17] MEDS: Folic Acid 1 MG TABLET PO (08:50)
[2023-07-17] MEDS: Acamprosate Calcium 333 MG TABLET.DR 666 MG PO ×3 (08:50→20:28)
[2023-07-17] MEDS: Thiamine HCL 100 MG TABLET PO (08:50)
--- NOTE | 2023-07-17 10:49 | MHC.CM.PN ---
EMR reviewed and per MD rounds, pt is medically cleared for D/C to STR pending bed offer. This CM contacted [facility], and is awaiting bed offer. Per [facility], CIWA scale will need to be 0 for him to be accepted there. CM will continue to follow for D/C.
[2023-07-17 11:01] VITALS: BP 104/66; PULSE 76; RESP 20; TEMP 36.4; O2SAT 96
--- NOTE | 2023-07-17 14:13 | MHC.CM.PN ---
MD has been made aware that PT is now recommending home vs STR. Patient is homeless; CM awaits response from MD.
[2023-07-17 14:57] VITALS: BP 120/73; PULSE 70; RESP 20; TEMP 36.4; O2SAT 99
--- NOTE | 2023-07-17 15:52 | HO.PM.IMPN ---
Subjective Subjective Date of Service: 07/17/23 Interval History: Complaining of bilateral lower extremity pain, due to fall, feels weak, denies headache, no lightheadedness, tolerating diet no nausea, no vomiting, no abdominal pain, no diarrhea, no recurrent seizures. Review of Systems all other system reviewed and negative Physical Exam Vital Signs: Vital Signs: Last Vital Signs Temp 97.6 F 07/17/23 14:57 Pulse 70 07/17/23 14:57 Resp 20 07/17/23 14:57 BP 120/73 07/17/23 14:57 Pulse Ox 99 07/17/23 14:57 O2 Del Method Room Air 07/17/23 14:57 O2 Flow Rate 2 07/14/23 07:39 BMI result Body Mass Index 25.1 Const: Other: Gen: Awake alert in no acute distress. We no HEENT: sclera anicteric, moist mucus membranes Neck: supple Lungs: clear to auscultation bilaterally Heart: regular rate and rhythm, no murmurs Abd: soft, non-tender, non-distended Ext: Multiple ecchymosis, no edema Skin: warm/well-perfused Neuro: alert and oriented x3, no focal findings Psych: appropriate affect Objective Data Active Medications Acamprosate (Acamprosate Calcium 333 Mg Tablet.) 666 mg PO TID [facility] Last Admin: 07/17/23 08:50 Dose: 666 mg Documented By: LANCE Acetaminophen (Acetaminophen 325 Mg Tablet) 650 mg PO Q6H PRN PRN Reason: Pain, Mild (Pain Scale 1-3) Last Admin: 07/16/23 15:32 Dose: 650 mg Documented By: LASHON Docusate Sodium (Docusate Sodium 100 Mg Capsule) 100 mg PO DAILY PRN PRN Reason: Constipation Enoxaparin Sodium (Enoxaparin Sodium 40 Mg/0.4 Ml Syringe) 40 mg SUBCUT Q24H [facility] Last Admin: 07/16/23 18:37 Dose: 40 mg Documented By: RAJEEV Folic Acid (Folic Acid 1 Mg Tablet) 1 mg PO DAILY [facility] Last Admin: 07/17/23 08:50 Dose: 1 mg Documented By: LANCE Pharmacy Consult (Consult Rx Etoh Phenob Im/Po) 1 each MISCELLANE ONCE PRN; Protocol PRN Reason: Consult order Sodium Chloride (0.9 % Sodium Chloride Flush 3 Ml Syringe) 3 ml IVFLUSH QSHIFT [facility] Last Admin: 07/17/23 08:50 Dose: 3 ml Documented By: LANCE Thiamine HCl (Thiamine Hcl 100 Mg Tablet) 100 mg PO DAILY [facility] Last Admin: 07/17/23 08:50 Dose: 100 mg Documented By: LANCE Labs 07/12/23 09:08 07/14/23 07:06 Labs: Laboratory Results - last 24 hr 07/16/23 05:50 Hepatitis C Ab (EIA) Nonreactive HIV 1&2 Ab/P24 Ag 4thGn Nonreactive Assessment and Plan (1) Alcohol withdrawal: Status: Acute (2) Rhabdomyolysis: Status: Acute (3) Alcohol withdrawal seizure: Status: Acute (4) Hypomagnesemia: Status: Acute Plan 37yo M with AUD, ILR for hx syncope,presented after witnessed generalized seizure, had another seizure in ED,admitted for EtOH withdrawal, found to have sinus pauses + rhabdomyolysis. bradycardia with sinus pauses - no pauses on ILR when he had symptoms on Monday; no correlation between syncopal episodes and pauses; cardiology discussed with EPS who also agree with no pacemaker. ILR removed - needs outpt PSG EtOH withdrawal with seizure - completed phenobarbital taper, continue seizure precautions AUD - thiamine, folate - Addiction Medicine consulted; started acamprosate rhabdomyolysis - suspected due to sz or cocaine, resolved with IV fluid transaminasemia - due to mild EtOH hepatitis and also cross-reactivity with skeletal muscle; improved cocaine abuse - hepatitis C and HIV nonreactive ,[ HBV-immune] hypoK - repleted anion gap metabolic acidosis- resolved, likely due to seizure + EtOH thrombocytopenia - resolved, was due to EtOH. chronic normocytic anemia - stable, likely due to EtOH VTE ppx - LMWH dispo homeless, STR recommended due to balance/strength deficits, [facility] following In my clinical judgment, the patient requires continued inpatient hospitalization for the following reasons: Follow-up on seizure and placement. Time Spent With Patient Time: Total time managing care of this patient today ____ minutes. Quality Stroke Does the patient have a stroke diagnosis?: No VTE Prior VTE?: No VTE Risk Level:: Medical - moderate - high VTE Device Contraindication: N/A - Device Ordered VTE Drug Contraindication: N/A - Med Ordered
[2023-07-17] MEDS: Acetaminophen 325 MG TABLET 650 MG PO (17:30)
[2023-07-17] MEDS: Enoxaparin Sodium 40 MG/0.4 ML SYRINGE SUBCUT (17:30)
[2023-07-17 19:24] VITALS: BP 115/70; PULSE 75; RESP 18; TEMP 36.6; O2SAT 98
[2023-07-18] VITALS (7 sets, daily range): BP systolic 108–128; BP diastolic 65–85; PULSE 68–96; RESP 16–20; TEMP 37–37.9; O2SAT 96–98
[2023-07-18] MEDS: Thiamine HCL 100 MG TABLET PO (09:55)
[2023-07-18] MEDS: Folic Acid 1 MG TABLET PO (09:55)
[2023-07-18] MEDS: Acamprosate Calcium 333 MG TABLET.DR 666 MG PO ×3 (09:55→21:31)
[2023-07-18] MEDS: 0.9 % Sodium Chloride Flush 3 ML SYRINGE IVFLUSH ×3 (09:56→21:32)
[2023-07-18] MEDS: Acetaminophen 325 MG TABLET 650 MG PO ×3 (09:58→21:31)
--- NOTE | 2023-07-18 15:18 | MHC.CM.PN ---
AWAITING APPROVAL FROM [facility] TO ADMIT VIA TO [facility]. AWARE.
--- NOTE | 2023-07-18 15:43 | P.DS_ITS ---
DS: Providers Provider Date of Service: 07/18/23 Date of admission: 07/08/23 16:40 Primary care physician: None Physician Consults: 07/08/23 16:40 Addiction Medicine Routine Consulting Provider: Addiction Covering Reason for consultation: EtOh W/D, cocaine Has provider been notified: No 07/11/23 12:07 Consult to Cardiology Routine Consulting Provider: [facility] Cardiovascular Services Reason for consultation: bradycardia, sinus pause 07/14/23 09:28 Addiction Medicine Routine Consulting Provider: Addiction Covering Reason for consultation: AUD DS: Diagnosis Discharge Diagnosis (1) Alcohol withdrawal: Status: Acute (2) Rhabdomyolysis: Status: Acute (3) Alcohol withdrawal seizure: Status: Acute (4) Hypomagnesemia: Status: Acute DS: Summary Hospital Course Hospital Course: HPI from +P, 07/08/23, by hospitalist AMADA Grace: this is a 30-year-old male with history of alcohol dependence, history of alcohol withdrawal and alcohol withdrawal seizures who was brought to the emergency department for evaluation of a seizure. He reportedly had an unwit nessed seizure followed by a seizure that was witnessed by his brother who called the ambulance. After arrival to the emergency department he had a witnessed tonic-clonic seizure lasting approximately 1 minute with associated postictal period. He received a dose of IV Ativan and was then started on phenobarbital protocol. He received IV fluid as well as potassium supplementation for potassium level of 3.2. CPK was 1436, LFTs somewhat elevated. he had brain CT with IV contrast which showed no evidence of intracranial space-occupying lesion, bleed or infarct, there was area of encephalomalacia in the right frontoparietal region which could be sequela of old brain injury which is unchanged. patient was awake, alert and has no specific complaints. He reports drinking 6 large beers daily as well as Smirnoff vodka. 37yo homeless M with AUD with an ILR in place for years for hx syncope who presented after a witnessed generalized seizure and had another seizure in ED. He was admitted to the [facility] for EtOH withdrawal seizures and was found to have sinus pauses + rhabdomyolysis. Hospital course by problem: bradycardia with sinus pauses - Cardiology consulted: no pauses on ILR when he had symptoms and no correlation between syncopal episodes and pauses, so no PPM recommended; they discussed with EPS who also agree with no pacemaker. the ILR was removed this admission. he, however, should have an outpt polysomnography to rule out RAND EtOH withdrawal with seizure - completed phenobarbital taper AUD - to continue thiamine, folate; Addiction Medicine consulted; started paula mprosate; needs follow-up at [facility] rhabdomyolysis without renal injury - suspected due to seizure or cocaine; resolved with saline diuresis transaminasemia - due to mild EtOH hepatitis and also cross-reactivity with skeletal muscle; improved cocaine abuse - screen HCV + HIV nonreactive [he is HBV-immune] hypoK - repleted hypomagnesemia - repleted anion gap metabolic acidosis - resolved, likely due to seizure + EtOH thrombocytopenia - resolved, was due to EtOH Due to weakness and imbalance, he was discharged to [facility] for short-term rehabilitation for less than 30 days. Time Spent with Patient Time attestation: Total time managing care of this patient today ____ minutes. Discharge coordination time: Greater than 30 minutes Quality: Safe Use of Opioids Does Pt have an Active Cancer Diagnosis on the Problem List?: No Quality: Stroke Does the patient have a stroke diagnosis?: No Physical Exam Vital Signs: Vital Signs: Last Vital Signs Temp 99.3 F 07/18/23 15:20 Pulse 81 07/18/23 15:20 Resp 16 07/18/23 15:20 BP 122/76 07/18/23 15:20 Pulse Ox 98 07/18/23 15:20 O2 Del Method Room Air 07/18/23 15:20 O2 Flow Rate 2 07/14/23 07:39 BMI result Body Mass Index 25.1 Const: Other: Gen: Awake alert in no acute distress. HEENT: sclera anicteric, moist mucus membranes Neck: supple Lungs: clear to auscultation bilaterally Heart: regular rate and rhythm, no murmurs Abd: soft, non-tender, non-distended Ext: Lower extremity ecchymosis, no edema Skin: warm/well-perfused Neuro: alert and oriented x3, no focal findings. Psych: appropriate affect DS: Data Data Completed and Pending Completed studies during hospitalization [Text1]: Procedures Detoxification Services for Substance Abuse Treatment (02/18/23) Discharge Plan Discharge Anticipated Discharge Date/Time: 07/16/23 11:02 Patient Disposition: [facility] SNF Discharge Diagnosis: alcohol withdrawal seizure alcohol use disorder cocaine abuse rhabdomyolysis [facility] [facility] [Provider Group] - 1 Week Physician,Rafi [Primary Care Provider] - 1 Week Nan Meehan CNP [Nurse Practitioner] - 1 Week Discharge Medications: New folic acid 1 mg Tablet 1 mg PO DAILY Qty: 30 0RF acamprosate 333 mg Tablet,Delayed Release (Dr/Ec) 666 mg PO TID Qty: 180 0RF thiamine mononitrate (vit B1) 100 mg Tablet 100 mg PO DAILY Qty: 30 0RF Discharge Orders: Discharge Order (Routine); Ordered 07/18/23 Ordered By: Betty Hooper Diet: Advance to usual diet Activity on Discharge: As tolerated Stand Alone Forms: Patient Portal Discharge page Care Plan Goals: sobriety Health Concerns: alcohol withdrawal seizure alcohol use disorder cocaine abuse rhabdomyolysis Plan of Treatment: STR for less than 30 days maintain sobriety take acamprosate 666 mg 3x a day and follow up with [facility] establish primary care JUAQUIN Assessment: See Discharge Summary.
--- NOTE | 2023-07-18 15:45 | HO.PM.IMPN ---
Subjective Subjective Date of Service: 07/19/23 Interval History: Complaining of leg pain, back pain requesting for pain medication also complaining of mild tremors, denies headache tolerating diet, no nausea, no vomiting, no recurrent seizure-like activity noted. Review of Systems All other system reviewed and negative Physical Exam Vital Signs: Vital Signs: Last Vital Signs Temp 99.3 F 07/18/23 15:20 Pulse 81 07/18/23 15:20 Resp 16 07/18/23 15:20 BP 122/76 07/18/23 15:20 Pulse Ox 98 07/18/23 15:20 O2 Del Method Room Air 07/18/23 15:20 O2 Flow Rate 2 07/14/23 07:39 BMI result Body Mass Index 25.1 Const: Other: Gen: Awake alert in no acute distress. HEENT: sclera anicteric, moist mucus membranes Neck: supple Lungs: clear to auscultation bilaterally Heart: regular rate and rhythm, no murmurs Abd: soft, non-tender, non-distended Ext: Multiple ecchymosis, no edema Skin: warm/well-perfused Neuro: alert and oriented x3, no focal findings Psych: appropriate affect Objective Data Active Medications Acamprosate (Acamprosate Calcium 333 Mg Tablet.) 666 mg PO TID [facility] Last Admin: 07/18/23 15:29 Dose: 666 mg Documented By: LANCE Acetaminophen (Acetaminophen 325 Mg Tablet) 650 mg PO Q6H PRN PRN Reason: Pain, Mild (Pain Scale 1-3) Last Admin: 07/18/23 15:29 Dose: 650 mg Documented By: LANCE Docusate Sodium (Docusate Sodium 100 Mg Capsule) 100 mg PO DAILY PRN PRN Reason: Constipation Enoxaparin Sodium (Enoxaparin Sodium 40 Mg/0.4 Ml Syringe) 40 mg SUBCUT Q24H [facility] Last Admin: 07/17/23 17:30 Dose: 40 mg Documented By: LANCE Folic Acid (Folic Acid 1 Mg Tablet) 1 mg PO DAILY [facility] Last Admin: 07/18/23 09:55 Dose: 1 mg Documented By: LANCE Pharmacy Consult (Consult Rx Etoh Phenob Im/Po) 1 each MISCELLANE ONCE PRN; Protocol PRN Reason: Consult order Sodium Chloride (0.9 % Sodium Chloride Flush 3 Ml Syringe) 3 ml IVFLUSH QSHIFT [facility] Last Admin: 07/18/23 15:30 Dose: 3 ml Documented By: LANCE Thiamine HCl (Thiamine Hcl 100 Mg Tablet) 100 mg PO DAILY [facility] Last Admin: 07/18/23 09:55 Dose: 100 mg Documented By: LANCE Labs 07/12/23 09:08 07/14/23 07:06 Assessment and Plan (1) Hypokalemia: Status: Acute (2) Cocaine use: Status: Acute (3) Alcohol withdrawal: Status: Acute Plan 37yo M with AUD, ILR for hx syncope,presented after witnessed generalized seizure, had another seizure in ED,admitted for EtOH withdrawal, found to have sinus pauses + rhabdomyolysis. bradycardia with sinus pauses - no pauses on ILR when he had symptoms on Monday; no correlation between syncopal episodes and pauses; cardiology discussed with EPS who also agree with no pacemaker. ILR removed - needs outpt PSG EtOH withdrawal with seizure - completed phenobarbital taper, continue seizure precautions, mild tremors AUD - thiamine, folate - Addiction Medicine consulted; started on acamprosate rhabdomyolysis - suspected due to sz or cocaine, resolved with IV fluid MSK pain will add analgesics transaminasemia - due to mild EtOH hepatitis and also cross-reactivity with skeletal muscle; improved cocaine abuse - hepatitis C and HIV nonreactive ,[ HBV-immune] hypoK - repleted anion gap metabolic acidosis- resolved, likely due to seizure + EtOH thrombocytopenia - resolved, was due to EtOH. chronic normocytic anemia - stable, likely due to EtOH VTE ppx - LMWH dispo homeless, STR recommended due to balance/strength deficits, [facility] following In my clinical judgment, the patient requires continued inpatient hospitalization for the following reasons: Follow-up on seizure and placement. Time Spent With Patient Time: Total time managing care of this patient today ____ minutes. Quality Stroke Does the patient have a stroke diagnosis?: No VTE Prior VTE?: No VTE Risk Level:: Medical - moderate - high VTE Device Contraindication: N/A - Device Ordered VTE Drug Contraindication: N/A - Med Ordered
[2023-07-18] MEDS: Enoxaparin Sodium 40 MG/0.4 ML SYRINGE SUBCUT (18:39)
[2023-07-19 04:00] VITALS: BP 118/68; PULSE 77; RESP 16; TEMP 36.6; O2SAT 96
[2023-07-19 07:19] VITALS: BP 125/80; PULSE 82; RESP 18; TEMP 37.8; O2SAT 95
[2023-07-19] MEDS: Folic Acid 1 MG TABLET PO (09:33)
[2023-07-19] MEDS: Thiamine HCL 100 MG TABLET PO (09:33)
[2023-07-19] MEDS: Acamprosate Calcium 333 MG TABLET.DR 666 MG PO (09:33)
[2023-07-19] MEDS: 0.9 % Sodium Chloride Flush 3 ML SYRINGE IVFLUSH (09:35)
--- NOTE | 2023-07-19 09:47 | MHC.CM.PN ---
DP: PT TO DC TODAY TO [facility]. BLS BOOKED FOR 12:30 PM. FACILITY, RN AND PATIENT AWARE.
--- NOTE | 2023-07-19 10:45 | P.DS_ITS ---
DS: Providers Provider Date of Service: 07/19/23 Date of admission: 07/08/23 16:40 Primary care physician: None Physician Consults: 07/08/23 16:40 Addiction Medicine Routine Consulting Provider: Addiction Covering Reason for consultation: EtOh W/D, cocaine Has provider been notified: No 07/11/23 12:07 Consult to Cardiology Routine Consulting Provider: [facility] [place] Cardiovascular Services Reason for consultation: bradycardia, sinus pause 07/14/23 09:28 Addiction Medicine Routine Consulting Provider: Addiction Covering Reason for consultation: AUD DS: Diagnosis Discharge Diagnosis (1) Hypokalemia: Status: Acute (2) Cocaine use: Status: Acute (3) Alcohol withdrawal: Status: Acute DS: Summary Hospital Course Hospital Course: HPI from H+P, 07/08/23, by hospitalist AMADA Grace: this is a 30-year-old male with history of alcohol dependence, history of alcohol withdrawal and alcohol withdrawal seizures who was brought to the emergency department for evaluation of a seizure. He reportedly had an unwitnessed seizure followed by a seizure that was witnessed by his brother who called the ambulance. After arrival to the emergency department he had a witnessed tonic-clonic seizure lasting approximately 1 minute with associated postictal period. He received a dose of IV Ativan and was then started on phenobarbital protocol. He received IV fluid as well as potassium supplementation for potassium level of 3.2. CPK was 1436, LFTs somewhat elevated. he had brain CT with IV contrast which showed no evidence of intracranial space-occupying lesion, bleed or infarct, there was area of encephalomalacia in the right frontoparietal region which could be sequela of old brain injury which is unchanged. patient was awake, alert and has no specific complaints. He reports drinking 6 large beers daily as well as Smirnoff vodka. 37yo homeless M with AUD with an ILR in place for years for hx syncope who presented after a witnessed generalized seizure and had another seizure in ED. He was admitted to the [facility] for EtOH withdrawal seizures and was found to have sinus pauses + rhabdomyolysis. Hospital course by problem: bradycardia with sinus pauses - Cardiology consulted: no pauses on ILR when he had symptoms and no correlation between syncopal episodes and pauses, so no PPM recommended; they discussed with EPS who also agree with no pacemaker. the ILR was removed this admission. he, however, should have an outpt polysomnography to rule out RAND EtOH withdrawal with seizure - completed phenobarbital taper AUD - to continue thiamine, folate; Addiction Medicine consulted; started acamprosate; needs follow-up at [facility] rhabdomyolysis without renal injury - suspected due to seizure or cocaine; resolved with saline diuresis transaminasemia - due to mild EtOH hepatitis and also cross-reactivity with skeletal muscle; improved cocaine abuse - screen HCV + HIV nonreactive [he is HBV-immune] hypoK - repleted hypomagnesemia - repleted anion gap metabolic acidosis - resolved, likely due to seizure + EtOH thrombocytopenia - resolved, was due to EtOH Due to weakness and imbalance, he was discharged to [facility] for short-term rehabilitation for less than 30 days. Time Spent with Patient Time attestation: Total time managing care of this patient today ____ minutes. Discharge coordination time: Greater than 30 minutes Quality: Safe Use of Opioids Does Pt have an Active Cancer Diagnosis on the Problem List?: No Quality: Stroke Does the patient have a stroke diagnosis?: No Physical Exam Vital Signs: Vital Signs: Last Vital Signs Temp 100.0 F 07/19/23 07:19 Pulse 82 07/19/23 07:19 Resp 18 07/19/23 07:19 BP 125/80 07/19/23 07:19 Pulse Ox 95 07/19/23 07:19 O2 Del Method Room Air 07/19/23 07:19 O2 Flow Rate 2 07/14/23 07:39 BMI result Body Mass Index 25.1 Const: Other: Gen: Awake alert in no acute distress. HEENT: sclera anicteric, moist mucus membranes Neck: supple Lungs: clear to auscultation bilaterally Heart: regular rate and rhythm, no murmurs Abd: soft, non-tender, non-distended Ext: Lower extremity ecchymosis, no edema Skin: warm/well-perfused Neuro: alert and oriented x3, no focal findings. Psych: appropriate affect DS: Data Data Completed and Pending Completed studies during hospitalization [Text1]: Procedures Detoxification Services for Substance Abuse Treatment (02/18/23) Discharge Plan Discharge Anticipated Discharge Date/Time: 07/16/23 11:02 Patient Disposition: [facility] SNF Discharge Diagnosis: alcohol withdrawal seizure alcohol use disorder cocaine abuse rhabdomyolysis Referrals: [facility] [Provider Group] - 1 Week [facility] [Outside] - 1 Day (short term rehab) PhysicianRafi [Primary Care Provider] - 1 Week Nan Meehan CNP [Nurse Practitioner] - 1 Week Discharge Medications: New folic acid 1 mg Tablet 1 mg PO DAILY Qty: 30 0RF acamprosate 333 mg Tablet,Delayed Release (Dr/Ec) 666 mg PO TID Qty: 180 0RF thiamine mononitrate (vit B1) 100 mg Tablet 100 mg PO DAILY Qty: 30 0RF ibuprofen 400 mg Tablet 400 mg PO Q6H PRN (Reason: Pain, Moderate(Pain Scale 4-6)) Qty: 30 0RF Discharge Orders: Discharge Order (Routine); Ordered 07/19/23 Ordered By: Betty Hooper Diet: Advance to usual diet Activity on Discharge: As tolerated Stand Alone Forms: Patient Portal Discharge page Care Plan Goals: sobriety Health Concerns: alcohol withdrawal seizure alcohol use disorder cocaine abuse rhabdomyolysis Plan of Treatment: STR for less than 30 days maintain sobriety take acamprosate 666 mg 3x a day and follow up with [facility] establish primary care JUAQUIN Assessment: See Discharge Summary.
[2023-07-19 11:16] VITALS: BP 114/77; PULSE 88; RESP 20; TEMP 37.8; O2SAT 97
== END 2023-07-19 13:00 | disposition skilled nursing facility (03) | DRG 774 ==
LOC: HO.ED 11:27 → HO.EDOVER 17:04 → HO.IMC 17:06
PROVIDERS: Family Medicine; Internal Medicine Cardiovascular Disease; Nurse Practitioner Acute Care; Admitting Provider Physician Assistant Medical; Emergency Provider Emergency Medicine Emergency Medical Services; Visit Provider Hospitalist
PROC: 0JPT02Z Removal of Monitoring Device from Trunk Subcutaneous Tissue and Fascia, Open Approach (ICD-10-PCS; CPT 33285; principal; 2023-07-12 13:00)
DX: F10.239 Alcohol dependence with withdrawal, unspecified (principal); F14.10 Cocaine abuse, uncomplicated; E87.21 Acute metabolic acidosis; I49.5 Sick sinus syndrome; M62.82 Rhabdomyolysis; D69.59 Other secondary thrombocytopenia; R56.9 Unspecified convulsions; E83.42 Hypomagnesemia; K70.10 Alcoholic hepatitis without ascites; E87.6 Hypokalemia; Z59.02 Unsheltered homelessness; D64.9 Anemia, unspecified; L40.9 Psoriasis, unspecified; Z20.822 Contact with and (suspected) exposure to COVID-19; Z87.891 Personal history of nicotine dependence; Y90.3 Blood alcohol level of 60-79 mg/100 ml; Z79.899 Other long term (current) drug therapy
CPT/HCPCS: 36415; 70450; 71045; 80048; 80053; 80076; 80307; 82550; 83690; 83735; 85025; 85027; 85610; 85730; 86803; 87389; 87635; 93005; 97110; 97116; 97162; 99285; J1650; J2060; J2560; J3475

== ENCOUNTER → 2023-07-08 16:40 | Outpatient (BNV) | payer MEDICAID, SELFPAY | PROVIDERS: Admitting Provider Physician Assistant Medical; Emergency Provider Emergency Medicine Emergency Medical Services; Visit Provider Internal Medicine Cardiovascular Disease | DX: I45.5 Other specified heart block (principal) | CPT/HCPCS: 33286; 99222 ==

== ENCOUNTER → 2023-07-08 16:40 | Outpatient (BNV) | payer MEDICAID, SELFPAY | PROVIDERS: Admitting Provider Physician Assistant Medical; Emergency Provider Emergency Medicine Emergency Medical Services; Visit Provider Physician Assistant Medical | DX: E87.6 Hypokalemia (principal); F14.90 Cocaine use, unspecified, uncomplicated; F10.939 Alcohol use, unspecified with withdrawal, unspecified | CPT/HCPCS: 99223; 99232; 99239; 99499 ==

== ENCOUNTER 2023-08-30 10:37 | Outpatient (REF) | payer MEDICAID, SELFPAY ==
[2023-08-30 12:20] LABS: Anion Gap 10 (12-20); Blood Urea Nitrogen 13 mg/dL (9-16); Calcium 9.5 mg/dL (8.4-10.2); Carbon Dioxide 28 mmol/L (22-29); Chloride 106 mmol/L (96-108); Estimated Glomerular Filt Rate > 60; Glucose Random 88 mg/dL (60-115); Sodium 140 mmol/L (135-145)
[2023-08-30 12:36] LABS: TSH reflex Free T4 0.89 uIU/mL (0.32-4.0)
[2023-09-02 00:54] LABS: TS Negative Control Passed; TS Panel A 0; TS Panel B 0; TS Positive Control Passed; TSpotTB Negative (Negative)
== END 2023-08-30 10:38 | disposition home or self-care (01) ==
LOC: HO.HHCL 10:37
PROVIDERS: Visit Provider Internal Medicine
DX: Z11.1 Encounter for screening for respiratory tuberculosis (principal); R56.9 Unspecified convulsions; R22.1 Localized swelling, mass and lump, neck
CPT/HCPCS: 36415; 80048; 82550; 84443; 86481; 86735; 86762; 86765

== ENCOUNTER 2023-10-04 12:37 | Outpatient (REF) | payer MEDICAID, SELFPAY ==
--- NOTE | 2023-10-04 12:47 | EEG_ITS ---
This is a 16 channel EEG with an EKG lead. The patient is reported awake during the tracing. Background EEG rhythm is 8 to 10 hertz 5 to 20 microvolt posteriorly and lower amplitude fast anteriorly. Photic stimulation does not produce any significant driving. Hyperventilation is unremarkable. No sharp wave spikes or paroxysmal tendency noted. IMPRESSION: Unremarkable EEG. MD PATRICIO Iglesias/DANUTA / [id number]
== END 2023-10-04 12:38 | disposition home or self-care (01) ==
LOC: HO.NEURO 12:37
PROVIDERS: PCP Internal Medicine; Visit Provider Internal Medicine
DX: R56.9 Unspecified convulsions (principal); F10.10 Alcohol abuse, uncomplicated
CPT/HCPCS: 95816

== ENCOUNTER 2023-12-25 08:09 | Outpatient (AMB) | payer MEDICAID, SELFPAY ==
[2023-12-25 08:24] VITALS: BP 114/82; PULSE 63; BMI 29.0
--- NOTE | 2023-12-25 08:24 | MHC.OFFVIS ---
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 Allergies shellfish derived [SHELLFISH DERIVED] Allergy (Unknown, Verified 12/25/23 08:26) HIVES SEAFOOD Allergy (Unknown, Uncoded 12/25/23 08:26) UNKNOWN Medication List - Last Reconciled 12/25/23 by Bertha Ayers NP-C acamprosate 666 mg (2 x 333 mg) PO TID clonidine HCl 0.1 mg PO Q6-8H PRN folic acid 1 mg PO DAILY hydroxyzine HCl 50 mg PO BID ibuprofen 400 mg PO Q6H PRN sertraline 100 mg PO DAILY thiamine mononitrate (vit B1) 100 mg PO DAILY HPI follow up HPI Details Duarte is a 38-year-old male with past medical history of substance abuse, alcohol use, syncopal type event, seizure who had I ILR in place with finding of sinus pauses during sleep. He was last seen in our office 12/10/2020. He was seen at [facility] during his admission for seizure-like activity 06/2023. He was noted to have pauses during sleep. Dr. Aguirre discussed case with EP and pacemaker not indicated. At that time his ILR was removed. Since then he has undergone a sleep study and 48 hour Holter monitor as ordered by his PCP. Today he reports that he has been doing better overall. He is currently residing in a half-way house. He is no longer using illicit substances. He continues to drink alcohol socially. He is hoping to get his health in order so he can get a job. He denies any recent syncope, presyncope, falls. No recent seizure-like activity. No chest discomfort at rest or with activity. No shortness of breath, palpitations, lightheadedness, PND, orthopnea or edema. [facility] Medical History Cocaine use Alcohol withdrawal Rhabdomyolysis Hypomagnesemia Alcohol withdrawal seizure Sinus pause Alcohol intoxication Syncope Asthma Surgical History History of mandibular surgery Family History Maternal Grandfather Heart disease Mother Diabetes HTN (hypertension) Father Diabetes Social History Household Members: None Housing: Homeless Do you presently have visiting nurse or other home services: No Alcohol intake: current Alcohol intake frequency: a few times a week Alcohol type: beer and wine Comment: 1 to 1 sitter Patient Tobacco Use Status: Former Tobacco user Tobacco use type: Cigarette Cigarettes Per Day: 2 Years Smoked: 10 e-Cigarette/Vaping Use: Former Use Second Hand Smoke Exposure: No Substance Use Type: Crack/Cocaine service: No Current occupational status: unemployed Review of Systems Const All systems reviewed & are unremarkable except as noted in HPI and below ENT Denies dizziness Card Denies chest pain, Denies chest pain at rest, Denies chest pain with activity, Denies rapid heart rate, Denies pedal edema, Denies edema, Denies leg edema, Denies lightheadedness, Denies palpitations, Denies dyspnea, Denies dyspnea on exertion and Denies orthopnea Resp Denies cough, Denies dyspnea and Denies dyspnea on exertion GI Denies hematochezia and Denies change in stool character Musc Denies abnormal gait, Denies limited range of motion, Denies muscle cramps, Denies muscle weakness, Denies numbness, Denies radiating pain into limb, Denies stiffness and Denies tingling Neuro Denies abnormal gait, Denies dizziness, Denies numbness and Denies tingling Endo Denies palpitations Physical Exam Vital Signs: Last Vital Signs Pulse 63 12/25/23 08:24 BP 114/82 12/25/23 08:24 BMI result Body Mass Index 29.0 Const General: cooperative, healthy appearing, comfortable and no acute distress Orientation/consciousness: patient oriented x3 Neck Neck: Yes normal visual inspection Resp Effort & Inspection: normal respiratory effort Auscultation: clear to auscultation bilaterally, no crackles, no rales, no rhonchi and no wheezes Cardio Jugular venous distension: no JVD Rate: regular rate Rhythm: regular rhythm Heart sounds: S1 normal heart sound present, S2 normal heart sound present, no murmurs and no rubs Neuro General: patient oriented x3 Extrem General: Yes normal to inspection and No no pedal edema Psych Appearance: grossly normal Mental Status: mental status grossly normal Speech and movement: Normal speech and movement present Assessment & Plan Assessment & Plan (1) Sinus pause: Code(s): I45.5 - Other specified heart block Plan: Patient had implanted loop recorder placed in 2019 for evaluation of possible seizure event. His loop monitor showed frequent sinus pauses during sleep hours. He had no daytime pauses recorded. He was lost to follow-up due to social issues, homelessness, substance abuse. He was seen during hospital admission 02/2023 and again 06/2023. He had episodes of possible syncope and seizure-like activity. Loop recorder was still showing pauses during nighttime hours only. His eye ILR was removed on 07/12/2023. Last Echocardiogram done 05/12/2020 was normal. Last Exercise stress test done 05/15/2020 shows good exercise tolerance, heart rate 91% MPHR, no EKG changes of ischemia, no arrhythmia or pauses. - he did have a 48 hour Holter monitor done on on 12/15/2023 as ordered by his PCP. It shows sinus rhythm with average heart rate 63, heart rate range 26 to 128, rare PACs and PVCs , 200 pauses, longest 7.38 seconds at 03:33, some pauses occurring during daytime hours. He did undergo a sleep study on 12/02/2023 showing mild obstructive sleep apnea with recommendation for CPAP. He has not received a mask as of yet. Will refer to pulmonology for establishment of CPAP and sleep apnea treatment. Case reviewed with Dr. Aguirre as he saw patient last and he recommends referral to EP, Dr. Luther to evaluate for possible pacemaker placement. It is unknown whether his syncope and seizure-like activity is related to cardiac pauses or substance use, withdrawal. Avoid all rate slowing agents. Cardiology follow-up 3 months, sooner if needed (2) Sleep apnea: Code(s): G47.30 - Sleep apnea, unspecified Plan: Mild obstructive sleep apnea as above. Sleep study recommends patient being started on CPAP. Reviewed with patient and he states understanding (3) Active substance abuse: Code(s): F19.10 - Other psychoactive substance abuse, uncomplicated Plan: He says he is no longer using illicit substances. (4) Alcohol abuse: Code(s): F10.10 - Alcohol abuse, uncomplicated Plan: He tells me he drinks socially. Plan Time spent on chart review, documentation, interview and assessment Orders: Referrals Cardiac Electrophysiology Referral I45.5 - Other specified heart block, R55 - Syncope and collapse Pulmonology Referral G47.30 - Sleep apnea, unspecified Coding Level of Care Code Est Pt Level 4 (50926) Diagnoses Sinus pause I45.5 Sleep apnea G47.30 Active substance abuse F19.10 Alcohol abuse F10.10 Time Spent (min) 28
== END 2023-12-25 09:02 | disposition home or self-care (01) ==
PROVIDERS: PCP Internal Medicine; Visit Provider Nurse Practitioner Family
DX: I45.5 Other specified heart block (principal); G47.30 Sleep apnea, unspecified; F19.10 Other psychoactive substance abuse, uncomplicated; F10.10 Alcohol abuse, uncomplicated
CPT/HCPCS: 99214

== ENCOUNTER → 2023-12-25 08:09 | Outpatient (BNVA) | payer MEDICAID, SELFPAY | PROVIDERS: PCP Internal Medicine; Visit Provider Nurse Practitioner Family | DX: I45.5 Other specified heart block (principal); G47.30 Sleep apnea, unspecified; F19.10 Other psychoactive substance abuse, uncomplicated; F10.10 Alcohol abuse, uncomplicated | CPT/HCPCS: 99212 ==

== ENCOUNTER 2024-02-06 10:15 | Outpatient (REF) | payer MEDICAID, SELFPAY | END 2024-02-06 10:16 | disposition home or self-care (01) | LOC: HO.LNP 10:15 | PROVIDERS: PCP Internal Medicine; Referring Provider Internal Medicine; Visit Provider Surgery | DX: L72.3 Sebaceous cyst (principal); K43.2 Incisional hernia without obstruction or gangrene | CPT/HCPCS: 11423; 88304; 99202 ==

== ENCOUNTER 2024-02-06 10:15 | Outpatient (AMB) | payer MEDICAID, SELFPAY ==
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
[2024-02-06 10:25] VITALS: BP 138/102; PULSE 76; BMI 29.2
== END 2024-02-06 10:46 | disposition home or self-care (01) ==
PROVIDERS: PCP Internal Medicine; Referring Provider Internal Medicine; Visit Provider Surgery
DX: K43.2 Incisional hernia without obstruction or gangrene (principal); L72.0 Epidermal cyst
CPT/HCPCS: 11423; 99204

== ENCOUNTER 2024-02-13 09:09 | Outpatient (AMB) | payer MEDICAID, SELFPAY ==
--- NOTE | 2024-02-13 09:13 | MHC.OFFVIS ---
Intake Visit Reasons: s/p cyst excision Intake Note: Patient here s/p cyst exc on Lt post neck. Reports incision healing well. 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 He has no wound issues or complaints although he did have reaction to the Steri-Strips with some skin irritation. Pathology is benign. Patient also has multiple ventral hernia that will require abdominal component separation surgery. [facility] Medical History Cocaine use Alcohol withdrawal Rhabdomyolysis Hypomagnesemia Alcohol withdrawal seizure Sinus pause Alcohol intoxication Syncope Asthma Surgical History Sebaceous cyst History of mandibular surgery Family History Maternal Grandfather Heart disease Mother Diabetes HTN (hypertension) Father Diabetes Social History Household Members: None Housing: Homeless Do you presently have visiting nurse or other home services: No Alcohol intake: current Alcohol intake frequency: a few times a week Alcohol type: beer and wine Comment: 1 to 1 sitter Patient Tobacco Use Status: Former Tobacco user Tobacco use type: Cigarette Cigarettes Per Day: 2 Years Smoked: 10 e-Cigarette/Vaping Use: Former Use Second Hand Smoke Exposure: No Substance Use Type: Crack/Cocaine service: No Current occupational status: unemployed Physical Exam Neck Other: Wound clean dry and intact with some superficial dermatitis most likely related to the Steri-Strips. GI Other: Abdomen unchanged, soft, benign. Midline incision with multiple ventral hernia and fascial defects Assessment & Plan Assessment & Plan (1) Incisional hernia: Code(s): K43.2 - Incisional hernia without obstruction or gangrene Category: Surgical (2) Postop check: Code(s): Z09 - Encounter for follow-up examination after completed treatment for conditions other than malignant neoplasm Category: Surgical Plan 1. Patient has been given local instructions regarding posterior neck cyst. All questions answered. He will follow-up p.r.n. regarding this. 2. Arrangements were made for patient to see Dr. Meraz, [facility] [place] for component separation surgery. Arrangements made for this. Coding Level of Care Code Est Pt Level 4 (56997) Global (34085) Diagnoses Incisional hernia K43.2 Postop check Z09
== END 2024-02-13 09:45 | disposition home or self-care (01) ==
PROVIDERS: PCP Internal Medicine; Visit Provider Surgery
DX: K43.2 Incisional hernia without obstruction or gangrene (principal); Z09 Encounter for follow-up examination after completed treatment for conditions other than malignant neoplasm
CPT/HCPCS: 99024

== ENCOUNTER → 2024-02-13 09:09 | Outpatient (BNVA) | payer MEDICAID, SELFPAY | PROVIDERS: PCP Internal Medicine; Visit Provider Surgery | DX: Z09 Encounter for follow-up examination after completed treatment for conditions other than malignant neoplasm (principal); K43.2 Incisional hernia without obstruction or gangrene | CPT/HCPCS: 99212 ==

== ENCOUNTER 2024-10-18 09:19 | Outpatient (REF) | payer SELFPAY ==
[2024-10-18 11:09] LABS: MANUAL DIFF FLAG NO
[2024-10-18 11:15] LABS: Basophils Percent Auto 0.8 % (0-2); Eosinophils Absolute Auto 0.1 X10*3/uL (0.0-0.4); Eosinophils Percent Auto 2.1 % (0-4); Hematocrit 38.9 % (42.0-52.0); Hemoglobin 12.5 g/dl (14.0-18.0); Imm Gran Abs Auto 0.02 X10*3/uL (0.00-0.03); Imm Gran Pct Auto 0.4 % (0.0-0.4); Lymphocytes Absolute Auto 2.3 X10*3/uL (1.2-4.9); Lymphocytes Percent Auto 49.3 % (20-40); Mean Corpuscular HGB Conc 32.1 g/dl (31.0-36.0); Mean Corpuscular Hemoglobin 29.6 pg (27.0-33.0); Mean Platelet Volume 10.2 fL (9.4-12.4); Monocytes Absolute Auto 0.6 X10*3/uL (0.1-1.2); Monocytes Percent Auto 13.3 % (2-11); Neutrophils Absolute Auto 1.6 x10*3/uL (2.0-8.3); Neutrophils Percent Auto 34.1 % (45-73); Platelet Count 299 X10*3/uL (160-400); Red Blood Count 4.23 X10*6/uL (4.60-5.80); Red Cell Distribution Width 15.8 % (11.0-16.0); White Blood Count 4.7 X10*3/uL (4.8-10.8)
[2024-10-18 11:17] LABS: Prothrombin Time 11.2 SEC (10.9-12.4)
[2024-10-18 11:19] LABS: Partial Thromboplastin Time 28.7 SEC (26.0-36.8)
[2024-10-18 12:14] LABS: Alanine Aminotransferase 16 U/L (0-40); Albumin Level 3.9 g/dL (3.5-5.0); Alkaline Phosphatase 94 U/L (39-117); Aspartate Amino Transferase 26 U/L (5-37); Bilirubin Direct 0.1 mg/dL (0.0-0.5); Bilirubin Total 0.3 mg/dL (0.0-1.0); Total Protein 7.8 g/dL (6.5-8.0); Vitamin D 25-OH Total 10.7 ng/mL (>30)
[2024-10-18 12:31] LABS: Folate 7.1 ng/mL (> or = 4.0); Vitamin B12 294 pg/mL (200-900)
[2024-10-19 04:31] LABS: HBS Num1 104.89 mIU/mL (0-7.99); HBc Num1 0.12 S/CO (0.00-0.79); HBsAGNum1 0.31 S/CO (0.00-0.99); Hepatitis A Antibody IgM 0.23 Index (0-0.79); Hepatitis B Core Antibody Nonreactive (Nonreactive); Hepatitis B Surface Antigen Negative (Negative); ~HepC Num1 0.15 S/CO (0.00-0.79); ~Hepatitis A Antibody IgM Nonreactive (Nonreactive); ~Hepatitis B Surface Antibody REACTIVE (Nonreactive); ~Hepatitis C Antibody Nonreactive (Nonreactive)
[2024-10-21 18:47] LABS: TS Negative Control Passed; TS Panel A 0; TS Panel B 0; TS Positive Control Passed; TSpotTB Negative (Negative)
== END 2024-10-18 09:20 | disposition home or self-care (01) ==
LOC: HO.HHCL 09:19
PROVIDERS: Visit Provider Internal Medicine
DX: F10.20 Alcohol dependence, uncomplicated (principal); F32.3 Major depressive disorder, single episode, severe with psychotic features; D69.6 Thrombocytopenia, unspecified
CPT/HCPCS: 36415; 80076; 82306; 82607; 82746; 85025; 85610; 85730; 86481; 86704; 86706; 86709; 86803; 87340

== ENCOUNTER 2025-04-10 06:46 | Emergency (ER) | payer MEDICAID, SELFPAY ==
[2025-04-10 07:08] VITALS: BP 115/76; PULSE 77; RESP 16; TEMP 36.8; O2SAT 96; BMI 25.8
--- NOTE | 2025-04-10 07:37 | ED.GENADULT ---
HPI - General Adult General Chief complaint: Skin/Abscess/Foreign Body Stated complaint: Allergic Reaction to shell fish Time Seen by Provider: 04/10/25 07:28 Source: patient Mode of arrival: ambulatory Limitations: no limitations History of Present Illness ED Provider: DR. Henderson HPI narrative: 39-year-old male who is homeless live in the streets [facility] came in for evaluation of itchy painful bumps on his face x1 week. Patient declined new medication or change in his lifestyle, patient is unable to take a shower for over week because his social situation. No shortness of breath, no change in voice, able to swallow his own saliva. Related Data Home Medications ?Medication ?Instructions ?Recorded ?Confirmed clonidine HCl 0.1 mg tablet 0.1 mg PO Q6-8H PRN 12/25/23 12/25/23 hydroxyzine HCl 50 mg tablet 50 mg PO BID 12/25/23 12/25/23 sertraline 100 mg tablet 100 mg PO DAILY 12/25/23 12/25/23 Previous Rx's ?Medication ?Instructions ?Recorded acamprosate 333 mg tablet,delayed 666 mg (2 x 333 mg) PO TID #180 07/16/23 release tabs folic acid 1 mg tablet 1 mg PO DAILY #30 tabs 07/16/23 thiamine mononitrate (vit B1) 100 100 mg PO DAILY #30 tabs 07/16/23 mg tablet ibuprofen 400 mg tablet 400 mg PO Q6H PRN Pain, 07/19/23 Moderate(Pain Scale 4-6) #30 tabs doxycycline hyclate 100 mg tablet 100 mg PO BID #14 tabs 04/10/25 mupirocin 2 % topical ointment 1 appl topical BID #22 grams 04/10/25 (Centany) prednisone 20 mg tablet 20 mg PO BID #10 tabs 04/10/25 Allergies Allergy/AdvReac Type Severity Reaction Status Date / Time shellfish derived (SHELLFISH Allergy Unknown HIVES Verified 04/10/25 07:10 DERIVED) SEAFOOD Allergy Unknown UNKNOWN Uncoded 04/10/25 07:10 Review of Systems Review of Systems: All other systems are reviewed and are negative Constitutional: Reports as per HPI and Reports no additional constitutional complaints Eyes: Reports as per HPI and Reports no additional eye complaints Reports system reviewed and no additional complaints, except as documented Cardiovascular: Reports as per HPI and Reports no additional cardiovascular complaints Respiratory: Reports as per HPI and Reports no additional respiratory complaints Gastrointestinal: Reports as per HPI and Reports no additional gastrointestinal complaints Genitourinary: Reports no additional female genitourinary complaints Musculoskeletal: Reports no additional musculoskeletal complaints Skin/Breast: Reports system reviewed and no additional complaints, except as docu Psychiatric: Reports no additional psychiatric complaints Endocrine: Reports no additional endocrine complaints Hematologic/Lymphatic: Reports no additional hematologic/lymphatic complaints Allergic/Immunologic: Reports no additional allergic/immunologic complaints Reports system reviewed and no additional complaints, except as documented and Reports Abnormal speech present [facility] Past Medical History Medical History Cocaine use Alcohol withdrawal Rhabdomyolysis Hypomagnesemia Alcohol withdrawal seizure Sinus pause Alcohol intoxication Syncope Asthma Surgical History Sebaceous cyst History of mandibular surgery Family History Family History Maternal Grandfather Heart disease Mother Diabetes HTN (hypertension) Father Diabetes Social History Social History Household Members: None Housing: Homeless Do you presently have visiting nurse or other home services: No Alcohol intake: current Alcohol intake frequency: 3 or more drinks per day Alcohol type: beer and hard liquor Comment: 1 to 1 sitter Patient Tobacco Use Status: Former Tobacco user Tobacco use type: Cigarette Cigarettes Per Day: 2 Years Smoked: 10 Smoked in Last 30 Days: Yes e-Cigarette/Vaping Use: Former Use Second Hand Smoke Exposure: No Use of substances other than those prescribed or required for medical reasons: No Substance Use Type: Crack/Cocaine Advance Directives: No Advance Directives Information Provided: No service: No Current occupational status: unemployed Physical Exam ED Vital Signs: Vital Signs - 24 hr 04/10/25 07:08 Temperature 98.2 F Pulse Rate 77 Respiratory Rate 16 Blood Pressure 115/76 Pulse Oximetry 96 Oxygen Delivery Method Room Air BMI result Body Mass Index 25.8 Vital signs have been reviewed and appear to be correct. Blood pressure elevated. Heart rate normal. Respiratory rate normal. Temperature normal. Oxygen saturation normal. Appearance: Disheveled with poor hygiene, Alert. Oriented X3. No acute distress. Head: Normal external exam. Normocephalic. Atraumatic. No Mcdaniels signs noted. No raccoon eyes noted Eyes: PERRLA. EOMI. Conjunctiva and sclera normal. Eyelids normal. ENT: TM's Normal. Pharynx normal. Uvula midline. Moist mucous membranes. No trismus noted. No drooling noted. No muffled voice noted. Neck: Normal inspection. Neck supple. FROM. No adenopathy. Thyroid Normal. No meningeal signs. No neck mass noted. CVS: Normal heart rate and rhythm. Heart sound normal. No murmurs noted. Pulses normal throughout. Respiratory: No respiratory distress. Painless inspiration. Breath sounds normal. No wheezes/rales/rhonchi noted. Chest nontender. No accessory muscle usage noted or decreased air movement noted. Abdomen: Soft and nontender. Bowel sounds normal in all 4 quadrants. No distention noted. No organomegaly noted. No visible injury noted. Back: No CVA tenderness. Full range of motion noted. Skin: Diffuse infected acne on the forehead and cheeks. Extremities: No lower extremity edema. Extremities exhibit normal range of motion. Extremities nontender. Neuro: Oriented X 3. Cranial nerve exam: II-XII are grossly intact No motor deficit. No sensory deficit. Reflexes normal. Course Reevaluation(s) Reevaluation #1: infected acne to the face secondary to poor hygiene patient is homeless has no access to showers. likely infected scratches on the face from untrimmed nails. Patient was offered shower in the emergency department. Start the patient on doxycycline. Start the patient on prednisone. Time: 07:42 Medical Decision Making Differential Diagnosis Differential Diagnoses: The differential diagnosis associated with the presentation includes ( Contact dermatitis, infected acne vulgaris, cellulitis, allergic reaction, airway compromise.) Admission/Observation Consideration of admission/observation: Escalation of care including admission/observation considered Discharge Plan Discharge Clinical Impression: Infected abrasion of face Patient Disposition: Home, Self-Care Instructions: Abrasion (ED) Prescriptions: New doxycycline hyclate 100 mg tablet 100 mg PO BID Qty: 14 0RF prednisone 20 mg tablet 20 mg PO BID Qty: 10 0RF mupirocin [Centany] 2 % ointment 1 appl topical BID Qty: 22 0RF Rx Instructions: apply to the affected area No Action folic acid 1 mg Tablet 1 mg PO DAILY Qty: 30 0RF acamprosate 333 mg Tablet,Delayed Release (Dr/Ec) 666 mg PO TID Qty: 180 0RF thiamine mononitrate (vit B1) 100 mg Tablet 100 mg PO DAILY Qty: 30 0RF ibuprofen 400 mg Tablet 400 mg PO Q6H PRN (Reason: Pain, Moderate(Pain Scale 4-6)) Qty: 30 0RF sertraline 100 mg tablet 100 mg PO DAILY hydroxyzine HCl 50 mg tablet 50 mg PO BID clonidine HCl 0.1 mg tablet 0.1 mg PO Q6-8H PRN Referrals: Inge Longo MD [Primary Care Provider, Internal Medicine] Print Language: Slovak
--- NOTE | 2025-04-10 07:51 | PC.NURSE ---
Pt given items and opportunity to shower
[2025-04-10] MEDS: predniSONE 20 MG TABLET 40 MG PO (08:12)
[2025-04-10] MEDS: Doxycycline Monohydrate 100 MG CAPSULE PO (08:12)
[2025-04-10 08:27] VITALS: BP 118/65; PULSE 79; RESP 16; TEMP 36.7; O2SAT 100
== END 2025-04-10 08:27 | disposition home or self-care (01) ==
PROVIDERS: Emergency Provider Emergency Medicine; PCP Internal Medicine
DX: S00.81XA Abrasion of other part of head, initial encounter (principal); L50.0 Allergic urticaria; X58.XXXA Exposure to other specified factors, initial encounter; Y93.9 Activity, unspecified; Y92.9 Unspecified place or not applicable; Y99.8 Other external cause status; Z79.899 Other long term (current) drug therapy; Z87.891 Personal history of nicotine dependence; Z59.00 Homelessness unspecified
CPT/HCPCS: 99283; 99284

== ENCOUNTER 2025-04-11 17:34 | Inpatient (IN) | payer MEDICAID, SELFPAY ==
--- NOTE | ~2025-04-11 | CT_ITS ---
CLINICAL HISTORY: Elevated Lipase Liver enzymes, Pancytopenia CT abdomen and pelvis with contrast Comparison: US - US ABDOMEN LIMITED - 04/12/25 07:[address] - CT ABDOMEN PELVIS W IV CON - 04/07/23 02:25 EDT Findings: Mild atelectasis at the lung bases. Trace bilateral pleural effusions. Marked fatty infiltration of the liver. Liver is enlarged. Calcified stones are present in the gallbladder. Pancreas, adrenal glands and right kidney are unremarkable. No hydronephrosis. There is a 1 cm cyst in the right kidney. No stranding around the pancreas. The left kidney is slightly asymmetrically enlarged in comparison to the right, similar to prior. There is asymmetric mild perinephric stranding of the left kidney. No striated nephrogram or hydronephrosis. 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 No ureteral stones of either collecting system. No bowel obstruction, pneumoperitoneum, or pneumatosis. In comparison to prior study from 04/07/2023 there is thickening of the anterior upper abdominal wall musculature in a focal bandlike configuration, series 6, image 62, which appears to be a chronic finding. There appear to be evidence of previous ventral incision. Normal appendix. Prostate gland is normal. There is a rim calcified cyst in the left seminal vesicle, unchanged from prior. No acute fracture. IMPRESSION: 1. Slightly asymmetric mild perinephric stranding of the left kidney of unknown clinical significance. This finding can be seen with upper tract infections, however no other CT findings to suggest upper tract infection are seen. 2. Diffuse fatty infiltration of the liver. Cholelithiasis. Normal appearance of the bile ducts in the pancreas. 3. Bandlike thickening of the upper abdominal wall musculature, which may be postoperative in nature. This document has been electronically signed by: Rubio Jensen MD on 04/13/2025 12:43:32
--- NOTE | ~2025-04-11 | US_ITS ---
EXAMINATION: US ABDOMEN LIMITED HISTORY: transaminitis, elevated LIPASE TECHNIQUE: Real-time grayscale ultrasound imaging of the liver, gallbladder, and pancreas was performed and images were reviewed. COMPARISON: Comparison is made with the prior examination dated 09/03/2012. FINDINGS: Liver: The right lobe of the liver measures 18.6 cm in size. The left lobe of the liver measures 9.7 cm in size. The liver demonstrates increased echotexture, consistent with steatosis. No focal mass or intrahepatic biliary ductal dilatation is identified. There is normal hepatopedal flow in the portal vein. Gallbladder and biliary tree: There is a calculus in the gallbladder neck. There is no wall thickening or pericholecystic fluid. There is no sonographic Aguilar sign. The common bile duct is normal in caliber measuring 4 mm. Pancreas: The pancreas is obscured by bowel gas. There is no free fluid in the right upper quadrant. US/US abdomen limited IMPRESSION: 1. Hepatomegaly and hepatic steatosis. 2. The pancreas is obscured by bowel gas. 3. Cholelithiasis without evidence of acute cholecystitis. Electronically signed by: Howard Morales MD 04/14/2025 07:02 AM EDT
[2025-04-11 17:43] VITALS: BP 117/80; PULSE 120; RESP 16; TEMP 36.4; O2SAT 95; BMI 26.0
--- NOTE | 2025-04-11 17:45 | ED.GENADULT ---
HPI - General Adult General Chief complaint: Skin/Abscess/Foreign Body Stated complaint: allergies Time Seen by Provider: 04/11/25 19:30 History of Present Illness HPI narrative: Patient is a 39-year-old male admits to drinking alcohol and smoking some crack. Then complaining of some rash to the face. Patient was seen yesterday with. Was started on doxycycline. Been out in the sun all day. Patient is homeless. Complained of basis gotten more red. Patient came to the ED stating the rash has gotten worse. There is a burning sensation. There is no fever no chills. There is no systemic complaints. No coughing or congestion. No diaphoresis. Patient was seen yesterday diagnosed with abrasion to the face and was started on clindamycin steroid and antibiotic ointment. Related Data Home Medications ?Medication ?Instructions ?Recorded ?Confirmed clonidine HCl 0.1 mg tablet 0.1 mg PO Q6-8H PRN 12/25/23 12/25/23 hydroxyzine HCl 50 mg tablet 50 mg PO BID 12/25/23 12/25/23 sertraline 100 mg tablet 100 mg PO DAILY 12/25/23 12/25/23 Previous Rx's ?Medication ?Instructions ?Recorded acamprosate 333 mg tablet,delayed 666 mg (2 x 333 mg) PO TID #180 07/16/23 release tabs folic acid 1 mg tablet 1 mg PO DAILY #30 tabs 07/16/23 thiamine mononitrate (vit B1) 100 100 mg PO DAILY #30 tabs 07/16/23 mg tablet ibuprofen 400 mg tablet 400 mg PO Q6H PRN Pain, 07/19/23 Moderate(Pain Scale 4-6) #30 tabs doxycycline hyclate 100 mg tablet 100 mg PO BID #14 tabs 04/10/25 mupirocin 2 % topical ointment 1 appl topical BID #22 grams 04/10/25 (Centany) prednisone 20 mg tablet 20 mg PO BID #10 tabs 04/10/25 Allergies Allergy/AdvReac Type Severity Reaction Status Date / Time shellfish derived (SHELLFISH Allergy Unknown HIVES Verified 04/11/25 17:47 DERIVED) SEAFOOD Allergy Unknown UNKNOWN Uncoded 04/10/25 07:10 Review of Systems Review of Systems: Positive swelling to the face Positive redness to the face PMFSH Past Medical History Attestation statement: The following information was validated with the patient. Medical History Cocaine use Alcohol withdrawal Rhabdomyolysis Hypomagnesemia Alcohol withdrawal seizure Sinus pause Alcohol intoxication Syncope Asthma Surgical History Sebaceous cyst History of mandibular surgery Family History Family History Maternal Grandfather Heart disease Mother Diabetes HTN (hypertension) Father Diabetes Social History Social History Household Members: None Housing: Homeless Do you presently have visiting nurse or other home services: No Alcohol intake: current Alcohol intake frequency: 3 or more drinks per day Alcohol type: beer and hard liquor Comment: 1 to 1 sitter Patient Tobacco Use Status: Former Tobacco user Tobacco use type: Cigarette Cigarettes Per Day: 2 Years Smoked: 10 Smoked in Last 30 Days: Yes e-Cigarette/Vaping Use: Former Use Second Hand Smoke Exposure: No Use of substances other than those prescribed or required for medical reasons: Yes Substance Use Type: Crack/Cocaine Substance Use Frequency: Daily Last Used Substance: Just Prior to Admission Any prior treatment program specific to substance use: No Advance Directives: No Advance Directives Information Provided: Yes Do you have a plan to hurt others: No Plan service: No Current occupational status: unemployed Physical Exam ED Vital Signs: Vital Signs - 24 hr 04/11/25 17:43 04/11/25 21:17 Temperature 97.6 F 98.4 F Pulse Rate 120 H 82 Respiratory Rate 16 16 Blood Pressure 117/80 130/72 Pulse Oximetry 95 94 Oxygen Delivery Method Room Air Room Air BMI result Body Mass Index 26.0 Appearance: Alert. Oriented X3. No acute distress. Eyes: Pupils equal, round and reactive to light. ENT: Pharynx normal. Neck: Normal inspection. Neck supple. No lymph nodes noted. No crepitus CVS: Normal heart rate and rhythm. Pulses normal. Normal S1 and S2 Respiratory: No respiratory distress. Breath sounds normal. No Wheezing. No rales Abdomen: Soft and nontender. No rigidity. No distention. good BS x4 Skin: Positive redness to the sun-exposed area of the face. There is a fine abrasion noted over the cheeks. Not warm to touch. Blanches. Extremities: No lower extremity edema. Neurovascular intact to all extremities. No Lacerations. No Rash Neuro: Oriented X 3. No motor deficit. No sensory deficit. Moving all extermities. No slurred speech Course Course Course Narrative: 04/11/25 1746 AMADA Lopez This is a Rapid Medical Examination (RME) performed by Zahira Montalvo PA-C in triage. Full HPI, ROS, assessment and treatment plan per primary provider in the Main ED. Hx: 39 yo M currently experiencing homelessness here for worsening facial rash x24 hours. seen last night, diagnosed with infected acne to face. Prescribed doxycycline, prednisone and mupirocin. States he has been taking all of these as prescribed without improvement. Rash seems to be getting worse., now affecting eyes. he cannot elaborate. states i don't know what's going on . Plan: further eval in back ? Tetracaine/fluorescein, [facility] Medications Administered Discontinued Medications Generic Name Dose Route Start Last Admin Trade Name Freq PRN Reason Stop Dose Admin Clindamycin HCl 300 mg 04/11/25 19:47 04/11/25 22:24 Clindamycin Hcl 300 Mg Capsule PO 04/11/25 19:48 300 mg ONCE ONE Administration Sodium Chloride 1,000 mls @ 999 mls/hr 04/11/25 20:00 04/11/25 21:55 Ns IV 04/11/25 21:00 Infused .Q1H1M ERIS Infusion Medical Decision Making Medical Decision Making [facility] Narrative: Question sunburn on top of a abrasion. Patient was started on doxycycline yesterday. Been out in the sun all day. He is homeless. Question making no rash worse. Will change patient's antibiotics to clindamycin. Clindamycin was picked for Gram-positive coverage and possible community acquired MRSA coverage. Have patient follow-up on an outpatient basis. Heart rate was 120 question secondary to dehydration IV fluid was ordered. Labs ordered. CPK ordered to rule out the possibility of rhabdo. Alcohol ordered patient claims he last drink was this morning. In stable condition. Patient's blood work came back with having a low hemoglobin of 7.8. I did a rectal exam is grossly was heme negative. Patient's MCV is also low. Question iron deficiency anemia. Patient's white count is 1.5. Platelet is in the 70s range. Question etiology. Having pancytopenia question secondary to alcohol abuse. The finding was discussed with Dr. Carlin from hematology oncology. Would prefer for patient to be admitted and observed overnight. Currently in stable condition hospitalist team was consulted. Patient was placed on phenobarb protocol for alcohol withdrawal his alcohol right now is 800 CIWA score is a 4. Right now not in acute withdrawal. Differential Diagnosis Differential Diagnoses: The differential diagnosis associated with the presentation includes Alcohol intoxication, cellulitis, sunburn secondary to doxycycline, electrolyte disturbance, rhabdo Admission/Observation Consideration of admission/observation: Escalation of care including admission/observation considered Consult Healthcare Provider Management of the patient was discussed with: Hospitalist and Enamel Dipper (Oncology) Lab Data MDM Lab Attestation statement: I reviewed the patient's lab results. 04/11/25 20:02 04/11/25 20:02 Labs: Lab Results 04/11/25 04/11/25 04/11/25 Range/Units 20:02 20:17 20:36 WBC 1.5 L (4.8-10.8) X10*3/uL RBC 3.31 L D (4.60-5.80) X10*6/uL Hgb 7.8 L D (14.0-18.0) g/dl Hct 25.1 L D (42.0-52.0) % MCV 75.8 L (80.0-98.0) fL MCH 23.6 L (27.0-33.0) pg MCHC 31.1 (31.0-36.0) g/dl RDW 26.1 H (11.0-16.0) % Plt Count 73 L D (160-400) X10*3/uL MPV 9.1 L (9.4-12.4) fL Immature Gran % (Auto) Cancelled Neut % (Auto) Cancelled Lymph % (Auto) Cancelled Parke % (Auto) Cancelled Eos % (Auto) Cancelled Baso % (Auto) Cancelled Lymph # (Auto) Cancelled Parke # (Auto) Cancelled Eos # (Auto) Cancelled Baso # (Auto) Cancelled Abs Immat Gran (auto) Cancelled Absolute Neuts (auto) Cancelled Absolute Nucleated RBC 0.090 H (0.0-0.012) X10*3/uL Nucleated RBC % (auto) 5.9 H (0.0-0.2) /100WBC Neutrophils % (Manual) 76 H (45-73) % Band Neutrophils % 0 L (3-5) % Lymphocytes % (Manual) 16 L (20-40) % Monocytes % (Manual) 8 (2-11) % Abs Neuts (Manual) 1.1 L (2.0-8.3) X10*3/uL Lymphocytes # (Manual) 0.2 L (1.2-4.9) X10*3/uL Monocytes # (Manual) 0.1 (0.1-1.2) X10*3/uL Nucleated RBCs 5 H (0-0) /100WBC Platelet Estimate DECREASED (NORMAL) Plt Morphology Comment NORMAL RBC Morphology NOTED Hypochromasia 1+ (5-14) /OIF Smear Tech's Comments MANUAL DIFF Sodium 143 (135-145) mmol/L Potassium 3.9 (3.3-5.1) mmol/L Chloride 108 (96-108) mmol/L Carbon Dioxide 22 (22-29) mmol/L Anion Gap 17 (12-20) BUN 11 (9-16) mg/dL Creatinine 0.95 (0.5-1.4) mg/dL Estim Creat Clear Calc 104.3 Estimated GFR > 60 Random Glucose 185 H (60-115) mg/dL Calcium 8.6 D (8.4-10.2) mg/dL Total Bilirubin 0.5 (0.0-1.0) mg/dL AST 170 H (5-37) U/L ALT 72 H (0-40) U/L Alkaline Phosphatase 86 (39-117) U/L Total Creatine Kinase 1005 H (38-174) U/L Total Protein 9.1 H (6.5-8.0) g/dL Albumin 4.1 (3.5-5.0) g/dL Stool Occult Blood NEGATIVE (NEGATIVE) Urine Opiates Screen Not Detected (Not Detect) Ur Buprenorphine Scrn Not Detected (Not Detect) ng/mL Ur Oxycodone Screen Not Detected (Not Detect) ng/mL Urine Methadone Screen Not Detected (Not Detect) ng/mL Urine Fentanyl Screen Not Detected (Not Detect) Ur Barbiturates Screen Not Detected (Not Detect) Ur Phencyclidine Scrn Not Detected (Not Detect) Ur Amphetamines Screen Not Detected (Not Detect) U Benzodiazepines Scrn Not Detected (Not Detect) Urine Cocaine Screen POSITIVE H (Not Detect) U Marijuana (THC) Screen Not Detected (Not Detect) Ethyl Alcohol 426 H* mg/dL Chronic Conditions Homeless history of ETOH Social Determinants Patient?s care significantly limited by Social Determinants of Health including: Inadequate housing, Low income, Alcoholism and drug addiction in family, Problems related to primary support group and Unemployment Discharge Plan Discharge Clinical Impression: Alcohol abuse, Pancytopenia Prescriptions: No Action folic acid 1 mg Tablet 1 mg PO DAILY Qty: 30 0RF acamprosate 333 mg Tablet,Delayed Release (Dr/Ec) 666 mg PO TID Qty: 180 0RF thiamine mononitrate (vit B1) 100 mg Tablet 100 mg PO DAILY Qty: 30 0RF ibuprofen 400 mg Tablet 400 mg PO Q6H PRN (Reason: Pain, Moderate(Pain Scale 4-6)) Qty: 30 0RF doxycycline hyclate 100 mg tablet 100 mg PO BID Qty: 14 0RF prednisone 20 mg tablet 20 mg PO BID Qty: 10 0RF mupirocin [Centany] 2 % ointment 1 appl topical BID Qty: 22 0RF Rx Instructions: apply to the affected area sertraline 100 mg tablet 100 mg PO DAILY hydroxyzine HCl 50 mg tablet 50 mg PO BID clonidine HCl 0.1 mg tablet 0.1 mg PO Q6-8H PRN Print Language: Gabonese
--- NOTE | 2025-04-11 19:47 | ECG_ITS ---
Test Reason : PALPITATIONS Blood Pressure : */* mmHG Vent. Rate : 92 BPM Atrial Rate : 92 BPM P-R Int : 178 ms QRS Dur : 82 ms QT Int : 360 ms P-R-T Axes : 35 30 38 degrees QTcB Int : 445 ms Normal sinus rhythm Normal ECG When compared with ECG of 11-Jul-2023 06:06, Vent. rate has increased by 35 bpm Referred By: Laurel Uriarte Electronically Signed By: ANU ROBLES
[2025-04-11 20:12] LABS: Hematocrit 25.1 % (42.0-52.0); Hemoglobin 7.8 g/dl (14.0-18.0); Mean Corpuscular HGB Conc 31.1 g/dl (31.0-36.0); Mean Corpuscular Hemoglobin 23.6 pg (27.0-33.0); Mean Corpuscular Volume 75.8 fL (80.0-98.0); NRBC Abs Auto 0.090 X10*3/uL (0.0-0.012); PLT CLUMP 1; Red Blood Count 3.31 X10*6/uL (4.60-5.80)
[2025-04-11 20:13] LABS: NRBC Pct Auto 5.9 /100WBC (0.0-0.2)
[2025-04-11 20:40] LABS: Lymphocytes Percent Manual 16 % (20-40); Monocytes Percent Manual 8 % (2-11); Neutrophils Percent Manual 76 % (45-73)
[2025-04-11 20:41] LABS: Band Neutrophils Percent 0 % (3-5)
[2025-04-11 20:42] LABS: Cannabinoid Screen Urine Not Detected (Not Detect)
[2025-04-11 20:43] LABS: OBS Int Ctl Valid YES; OBS1 NEGATIVE (NEGATIVE)
[2025-04-11 20:44] LABS: Hypochromasia 1+ (5-14) /OIF; RBC Morphology NOTED
[2025-04-11 20:45] LABS: Lymphocytes Absolute Manual 0.2 X10*3/uL (1.2-4.9); Monocytes Absolute Manual 0.1 X10*3/uL (0.1-1.2); Neutrophils Absolute Manual 1.1 X10*3/uL (2.0-8.3); Platelet Count 73 X10*3/uL (160-400); White Blood Count 1.5 X10*3/uL (4.8-10.8)
[2025-04-11 21:04] LABS: Alanine Aminotransferase 72 U/L (0-40); Albumin Level 4.1 g/dL (3.5-5.0); Alkaline Phosphatase 86 U/L (39-117); Anion Gap 17 (12-20); Aspartate Amino Transferase 170 U/L (5-37); Blood Urea Nitrogen 11 mg/dL (9-16); Calcium 8.6 mg/dL (8.4-10.2); Carbon Dioxide 22 mmol/L (22-29); Chloride 108 mmol/L (96-108); Creatinine Clr Calc Pharmacy 104.3; Estimated Glomerular Filt Rate > 60; Potassium 3.9 mmol/L (3.3-5.1); Sodium 143 mmol/L (135-145); Total Protein 9.1 g/dL (6.5-8.0)
[2025-04-11 21:17] VITALS: BP 130/72; PULSE 82; RESP 16; TEMP 36.9; O2SAT 94
[2025-04-11 23:51] VITALS: BP 106/75; PULSE 84; RESP 14; TEMP 36.4; O2SAT 95
[2025-04-12] VITALS (12 sets, daily range): BP systolic 102–136; BP diastolic 69–87; PULSE 69–93; RESP 12–18; TEMP 36.2–37.4; O2SAT 92–96; BMI 24.7
[2025-04-12] MEDS: PHENobarbitaL 200 MG PO ONCE 400 MG PO (00:25)
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
[2025-04-12 01:02] LABS: Iron 28 mcg/dL (45-160); Magnesium 1.8 mg/dL (1.6-2.6); Percent Iron Saturation 8 % (15-50); Total Iron Binding Capacity 364 mcg/dL (228-428); Unsaturated Iron Binding 336 ug/dL
[2025-04-12 01:14] LABS: Lipase 744 U/L (8-78)
[2025-04-12] MEDS: Lactated Ringers 1,000 ML 125 ML IVCONT ×4 (02:06→23:31)
[2025-04-12] MEDS: Lactated Ringers 1,000 ML 999 ML IV (02:07)
--- NOTE | 2025-04-12 03:13 | PC.NURSE ---
Patient is alert, oriented to self and place, was unable to state the current date. Patient medicated per DEC. Patient requested tuna sandwich with patrizia cesar. Patient reminded that of his NPO status at this time. Patient verbalized understanding and provided with ice chips. VSS, HR 66 NSR on school lunch monitor. CIWA score 4, no s/s of ETOH withdrawal noted, seizure precautions in place. LR infusing at 125 mL/hr via 20 G IV line in R hand without issues. Patient is able to make his needs known, Call braun within patient's reach.
[2025-04-12] MEDS: PHENobarbitaL 200 MG PO ONCE 300 MG PO ×2 (03:48→06:31)
[2025-04-12 05:43] LABS: Imm Gran Abs Auto 0.01 X10*3/uL (0.00-0.03); Imm Gran Pct Auto 0.5 % (0.0-0.4); Lymphocytes Absolute Auto 0.7 X10*3/uL (1.2-4.9); MANUAL DIFF FLAG SCAN; PLT CLUMP 1; SCAN SMEAR FLAG 1
[2025-04-12 05:45] LABS: Hematocrit 22.0 % (42.0-52.0); Mean Corpuscular HGB Conc 31.4 g/dl (31.0-36.0); Mean Corpuscular Hemoglobin 23.8 pg (27.0-33.0); Mean Corpuscular Volume 75.9 fL (80.0-98.0); NRBC Abs Auto 0.060 X10*3/uL (0.0-0.012); NRBC Pct Auto 3.0 /100WBC (0.0-0.2); Red Blood Count 2.90 X10*6/uL (4.60-5.80)
[2025-04-12 05:46] LABS: White Blood Count 2.0 X10*3/uL (4.8-10.8)
[2025-04-12 05:48] LABS: Hemoglobin 6.9 g/dl (14.0-18.0)
[2025-04-12 06:00] LABS: Alanine Aminotransferase 58 U/L (0-40); Albumin Level 3.4 g/dL (3.5-5.0); Alkaline Phosphatase 73 U/L (39-117); Anion Gap 14 (12-20); Aspartate Amino Transferase 139 U/L (5-37); Blood Urea Nitrogen 11 mg/dL (9-16); Calcium 8.0 mg/dL (8.4-10.2); Carbon Dioxide 24 mmol/L (22-29); Chloride 105 mmol/L (96-108); Creatinine Clr Calc Pharmacy 154.9; Estimated Glomerular Filt Rate > 60; Iron 33 mcg/dL (45-160); Lipase 147 U/L (8-78); Percent Iron Saturation 11 % (15-50); Potassium 3.4 mmol/L (3.3-5.1); Sodium 140 mmol/L (135-145); Total Iron Binding Capacity 301 mcg/dL (228-428); Total Protein 7.5 g/dL (6.5-8.0); Unsaturated Iron Binding 268 ug/dL
[2025-04-12 06:03] LABS: Platelet Count 59 X10*3/uL (160-400)
--- NOTE | 2025-04-12 06:05 | P.EN_ITS ---
Event Note Date of Service: 04/12/25 Event Note: Patient's a.m. labs have returned and H&H is below 7 and 21, 6.9 and 22. Platelets are also low at 59,000 nine thousand with no spontaneous bleeding. Patient remains NPO. 1 unit of PRBCs has been ordered in the type and screen had already been drawn. This sql report writer completed blood consent with patient prior to leaving today. Iron levels are low. Heme consultation and GI consultation are ordered. Patient is on a PPI, we will hold off on starting octreotide. Time Spent With Patient Time: Total time managing care of this patient today ____ minutes.
[2025-04-12 06:19] LABS: Appearance Urine Clear; Glucose Urine UA 500 mg/dL (Negative); PH 6.0 (5.0-9.0); Specific Gravity - Urine 1.020 (1.005-1.025); UMIC TRIGGER UA YES
[2025-04-12 06:34] LABS: Folate 4.8 ng/mL (> or = 4.0); Vitamin B12 597 pg/mL (200-900)
--- NOTE | 2025-04-12 08:00 | PC.NURSE ---
Ultra sound at bedside.
--- NOTE | 2025-04-12 08:01 | PC.NURSE ---
Assumed care of pt at 0700. Pt resting in bed quietly, a/ox3- responds to verbal stimuli, respirations even and unlabored, no increased wob/sob noted, O2 sat >92% on RA, nsr on threat monitoring analyst, HR- 70s, pt denies cp/sob. Addition IV placed Left AC 18g- patent, blood return. IV Fluids infusing per MAR in 20g IV R hand. Vitals updated in worklist. Per pt- hx of ETOH withdrawal seizures, seizure precautions in place. CIWA 2- d/t headache and confusion of date. Call braun within reach, all needs met at this time.
[2025-04-12] MEDS: Thiamine HCL 100 MG in 0.9 % Sodium Chloride 100 ML 202 MG IV (08:21)
--- NOTE | 2025-04-12 08:23 | PHA.MEDREC ---
Addendum entered by Whitney Jones RPh 04/12/25 08:37: Reviewed by [facility] Original Note: Pharmacy Consult ? Medication Reconciliation Pharmacy has completed the medication reconciliation. Spoke with patient to confirm. Patient reports he took his meds before coming into the hospital
[2025-04-12] MEDS: Hydrocortisone 1 % Cream 28.35 GM TUBE 1 APPL TOPICAL (08:35)
--- NOTE | 2025-04-12 09:34 | PC.NURSE ---
Pt TAR not allowing this RN to verify/begin transfusion. 0820- Pre verification vitals done @0820 and documented in TAR/worklist. Vitals as follows- T 97.7, P 93, RR 18, BP 112/79, O2 93% on RA 0825- Blood verified with Kelly RN, verification completed and Co-signed by Kelly RN. Per TAR- blood transfusion unable to begin d/t pre-transfusion vital signs have not been recorded yet. Pre verification vitals re-entered into TAR and timed to when completed. TAR repeated with same Pre-Transfusion vitals have not been recorded yet. Additional RNs at bedside for help- Karen RN and concrete mixer operator helper Echo. Transfusion started @0825, infusing @160mls/hr- unable to verify/begin in TAR. 0830- This RN called blood bank for assistance on verifying TAR and beginning transfusion. Blood bank stated to this RN this is an IT issue. Call made to IT, awaiting cushion spring assembler back at this time. Per TAR- still unable to verify/begin transfusion. This RN at bedside with pt throughout infusion- tolerating well, no s/s of transfusion reaction, remains on registered nurse cardiac telemetry/BP and O2 probe. 0840- 15 minute repeat vitals done by this RN. Vitals as follows- T 98.3, P 86, R 18, BP 121/79, O2 96% on RA. Pt tolerating infusion well @ 160mls/hr- no s/s of transfusion reaction. Per TAR- this RN still unable to verify/begin blood transfusion. Awaiting call back from IT on issue. 914- This RN spoke with Jaun from IT on phone. Per Juan- unsure of verification issue in TAR. This RN undid vitals documented and re documented with times started- still unable to begin/verify transfusion. This RN retried inputting vitals/re-verifying transfusion with Kelly RN at bedside, unable to start transfusion per TAR d/t pre-transfusion vitals have not been recorded yet. Juan from IT looking into issue/reaching out to other IT specialists for assistance- IT will follow up with this RN to assist in issue. 929- Call back from Juan from IT. Unsure the cause of issue/how to fix. IT looking into issue to fix and will follow up with this RN. Pt to be transported to - Room 358, RN Jazmín. This RN gave a verbal report to Jazmín RN over the phone on current transfusion situation. Jazmín aware of situation/transfusion verified and infusing with no issues. Awaiting transport upstairs/return call from case manager specialist at this time.
[2025-04-12 09:54] LABS: HBS Num1 131.68 mIU/mL (0-7.99); HBc Num1 0.11 S/CO (0.00-0.79); HBsAGNum1 0.46 S/CO (0.00-0.99); HIV Num 1 0.10 S/CO (0.00-0.99); Hepatitis A Antibody IgM 0.27 Index (0-0.79); Hepatitis B Surface Antigen Negative (Negative); ~HepC Num1 0.23 S/CO (0.00-0.79); ~Hepatitis A Antibody IgM Nonreactive (Nonreactive); ~Hepatitis B Surface Antibody REACTIVE (Nonreactive); ~Hepatitis C Antibody Nonreactive (Nonreactive)
--- NOTE | 2025-04-12 10:16 | PC.NURSE ---
Pt. arrived on the floor at 1015, alert and oriented, PRBC running at 160ml/hr. BP 131/82, HR 72, T 98.2 orally, RR 16, 94%RA. Patient is resting comfortably.
--- NOTE | 2025-04-12 10:38 | PC.NURSE ---
Addendum entered by Jazmín Moreno RN 04/13/25 07:14: T 98.0, BP 132/87, HR 71, RR 16 Original Note: End vitals for blood transfusion.
--- NOTE | 2025-04-12 10:39 | PC.NURSE ---
Blood transfusion ended at 1038.
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
--- NOTE | 2025-04-12 14:54 | MHC.CM.PN ---
Patient reports he is unhoused, mostly staying in a tent in the [facility] [place]. Independent w/ care. Denies use of DME or services. Admits to PETTY (crack cocaine) & AUD, but states he does not want to talk to anyone about this, and is not looking for help. PCP Inge Longo MD @ [facility] No HCP. CM provided education and offered assistance. Patient declined. +THRIVE - resource guide, group home list, and additional [facility] program information provided. DP: Goal is return to tent. Declines group home placement. Would like to [place] [facility] [place] to [facility] on [address] on discharge. CM will continue to follow.
[2025-04-12] MEDS: 0.9 % Sodium Chloride Flush 3 ML SYRINGE IVFLUSH ×2 (15:29→19:55)
[2025-04-12 18:33] LABS: OBS Int Ctl Valid YES
[2025-04-12 18:37] LABS: OBS1 NEGATIVE (NEGATIVE)
[2025-04-12] MEDS: metroNIDAZOLE 0.75 % Gel 45 GM TUBE 1 APPL TOPICAL (21:49)
--- NOTE | 2025-04-13 02:24 | PC.NURSE ---
per cmt pt having 4 second and [address] leyva notified and pictures sent. pt to be transferred [facility]
[2025-04-13 02:51] LABS: Hematocrit 26.2 % (42.0-52.0); Hemoglobin 8.7 g/dl (14.0-18.0); Imm Gran Abs Auto 0.02 X10*3/uL (0.00-0.03); Imm Gran Pct Auto 0.7 % (0.0-0.4); Lymphocytes Absolute Auto 0.8 X10*3/uL (1.2-4.9); MANUAL DIFF FLAG SCAN; Mean Corpuscular HGB Conc 33.2 g/dl (31.0-36.0); Mean Corpuscular Hemoglobin 25.0 pg (27.0-33.0); Mean Corpuscular Volume 75.3 fL (80.0-98.0); NRBC Abs Auto 0.050 X10*3/uL (0.0-0.012); PLT CLUMP 1; Red Blood Count 3.48 X10*6/uL (4.60-5.80); SCAN SMEAR FLAG 1
[2025-04-13 02:52] LABS: NRBC Pct Auto 1.7 /100WBC (0.0-0.2)
[2025-04-13 03:07] LABS: Platelet Count 59 X10*3/uL (160-400); White Blood Count 3.0 X10*3/uL (4.8-10.8)
[2025-04-13] MEDS: Magnesium Sulfate/H2O 2 GM/50 ML PIGGYBACK IV ×2 (03:39→03:48)
[2025-04-13 03:54] LABS: Alanine Aminotransferase 51 U/L (0-40); Albumin Level 3.2 g/dL (3.5-5.0); Alkaline Phosphatase 66 U/L (39-117); Anion Gap 13 (12-20); Aspartate Amino Transferase 114 U/L (5-37); Blood Urea Nitrogen 9 mg/dL (9-16); Calcium 8.2 mg/dL (8.4-10.2); Carbon Dioxide 26 mmol/L (22-29); Chloride 99 mmol/L (96-108); Creatinine Clr Calc Pharmacy 170.9; Estimated Glomerular Filt Rate > 60; Magnesium 1.0 mg/dL (1.6-2.6); Potassium 3.3 mmol/L (3.3-5.1); Sodium 135 mmol/L (135-145); Total Protein 7.3 g/dL (6.5-8.0)
[2025-04-13 04:00] VITALS: BP 142/79; PULSE 70; RESP 18; TEMP 36.1; O2SAT 95
[2025-04-13 04:31] LABS: PLT ABN DIST 1; Reticulocytes Absolute 0.074 X10*6/uL (0.026-0.095)
[2025-04-13 05:01] LABS: Ferritin 168 ng/mL (20-250)
[2025-04-13 06:42] LABS: MANUAL DIFF FLAG NO
[2025-04-13 07:07] LABS: Lymphocytes Absolute Auto 0.6 X10*3/uL (1.2-4.9); Mean Corpuscular HGB Conc 32.1 g/dl (31.0-36.0); SCAN SMEAR FLAG 1
[2025-04-13 07:09] LABS: Alanine Aminotransferase 51 U/L (0-40); Albumin Level 3.2 g/dL (3.5-5.0); Alkaline Phosphatase 63 U/L (39-117); Aspartate Amino Transferase 113 U/L (5-37); Hematocrit 27.1 % (42.0-52.0); Hemoglobin 8.7 g/dl (14.0-18.0); Imm Gran Abs Auto 0.01 X10*3/uL (0.00-0.03); Imm Gran Pct Auto 0.3 % (0.0-0.4); Magnesium 1.8 mg/dL (1.6-2.6); Mean Corpuscular Hemoglobin 25.0 pg (27.0-33.0); Mean Corpuscular Volume 77.9 fL (80.0-98.0); NRBC Abs Auto 0.060 X10*3/uL (0.0-0.012); Red Blood Count 3.48 X10*6/uL (4.60-5.80); Total Protein 7.2 g/dL (6.5-8.0); White Blood Count 3.0 X10*3/uL (4.8-10.8)
[2025-04-13 07:12] LABS: Platelet Count 64 X10*3/uL (160-400)
[2025-04-13 07:13] LABS: NRBC Pct Auto 2.0 /100WBC (0.0-0.2); PLT ABN DIST 1
[2025-04-13 07:27] VITALS: BP 124/74; PULSE 56; RESP 18; TEMP 36.3; O2SAT 94
[2025-04-13] MEDS: metroNIDAZOLE 0.75 % Gel 45 GM TUBE 1 APPL TOPICAL ×2 (08:40→20:01)
[2025-04-13] MEDS: 0.9 % Sodium Chloride Flush 3 ML SYRINGE IVFLUSH ×2 (08:42→16:46)
[2025-04-13] MEDS: Lactated Ringers 1,000 ML 125 ML IVCONT ×2 (08:42→17:47)
[2025-04-13] MEDS: Hydrocortisone 1 % Cream 28.35 GM TUBE 1 APPL TOPICAL (08:43)
[2025-04-13 08:45] LABS: Anion Gap 13 (12-20); Blood Urea Nitrogen 8 mg/dL (9-16); Calcium 8.3 mg/dL (8.4-10.2); Carbon Dioxide 26 mmol/L (22-29); Chloride 99 mmol/L (96-108); Creatinine Clr Calc Pharmacy 173.9; Estimated Glomerular Filt Rate > 60; Potassium 2.8 mmol/L (3.3-5.1); Sodium 135 mmol/L (135-145)
[2025-04-13] MEDS: Potassium Chloride Packet 20 MEQ PACKET 40 MEQ PO ×2 (09:03→11:31)
[2025-04-13] MEDS: iohexoL 350 MG/ML 100 ML INFUS..BTL IV (11:12)
[2025-04-13 11:24] VITALS: BP 130/82; PULSE 57; RESP 18; TEMP 36.7; O2SAT 97
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
[2025-04-13 15:19] VITALS: BP 129/85; PULSE 60; RESP 16; TEMP 36.8; O2SAT 97
[2025-04-13] MEDS: PEG 3350/Na Sulf,Bicarb,Cl/KCL 4,000 ML SOLN.RECON 4000 ML PO (17:24)
--- NOTE | 2025-04-13 19:13 | PM.EVENT ---
Event Note Date of Service: 04/13/25 Event Note: 2:22 AM - Multiple pauses noted: 4.0 sec, 2.3 sec. Patient was transferred to [facility]. Labs remarkable for hypomagnesemia 1.0 - MgSO4 4 mg IV total given. Will continue to monitor. Time Spent With Patient Time: Total time managing care of this patient today ____ minutes.
[2025-04-13 19:38] VITALS: BP 153/94; PULSE 63; RESP 16; TEMP 36.2; O2SAT 99
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
[2025-04-13 21:14] LABS: Anion Gap 12 (12-20); Blood Urea Nitrogen 5 mg/dL (9-16); Calcium 8.3 mg/dL (8.4-10.2); Carbon Dioxide 25 mmol/L (22-29); Chloride 100 mmol/L (96-108); Creatinine Clr Calc Pharmacy 170.9; Estimated Glomerular Filt Rate > 60; Magnesium 1.8 mg/dL (1.6-2.6); Potassium 3.4 mmol/L (3.3-5.1); Sodium 134 mmol/L (135-145)
[2025-04-13 23:36] VITALS: BP 144/89; PULSE 59; RESP 16; TEMP 36.1; O2SAT 96
--- NOTE | 2025-04-14 | ECG_ITS ---
Test Reason : avril Blood Pressure : */* mmHG Vent. Rate : 58 BPM Atrial Rate : 58 BPM P-R Int : 190 ms QRS Dur : 86 ms QT Int : 424 ms P-R-T Axes : 39 26 20 degrees QTcB Int : 416 ms Sinus bradycardia Early repolarization Otherwise normal ECG When compared with ECG of 11-Apr-2025 19:48, Vent. rate has decreased by 34 bpm Referred By: Preeti Acevedo Electronically Signed By: TIFFANY FELIZ MD
[2025-04-14] MEDS: Lactated Ringers 1,000 ML 125 ML IVCONT (00:39)
[2025-04-14 03:51] VITALS: BP 137/89; PULSE 54; RESP 16; TEMP 36.2; O2SAT 100
[2025-04-14] MEDS: Magnesium Sulfate/H2O 2 GM/50 ML PIGGYBACK IV (04:07)
[2025-04-14] MEDS: Potassium Chloride Packet 20 MEQ PACKET 40 MEQ PO (04:11)
--- NOTE | 2025-04-14 04:44 | PC.NURSE ---
delayed entry: At approx 0400, patient noted to have 4 second pause. and bradycardia 40-50's. Patient asymptomatic upon assessment. Provider notified. Magnesium 2g and Klor-con packet 40meq adminsitered.
[2025-04-14 07:07] LABS: Hematocrit 28.4 % (42.0-52.0); Hemoglobin 9.0 g/dl (14.0-18.0); Imm Gran Abs Auto 0.01 X10*3/uL (0.00-0.03); Imm Gran Pct Auto 0.3 % (0.0-0.4); Lymphocytes Absolute Auto 0.7 X10*3/uL (1.2-4.9); MANUAL DIFF FLAG SCAN; Mean Corpuscular HGB Conc 31.7 g/dl (31.0-36.0); Mean Corpuscular Hemoglobin 25.4 pg (27.0-33.0); Mean Corpuscular Volume 80.0 fL (80.0-98.0); NRBC Abs Auto 0.040 X10*3/uL (0.0-0.012); PLT CLUMP 1; Red Blood Count 3.55 X10*6/uL (4.60-5.80); SCAN SMEAR FLAG 1
[2025-04-14 07:18] VITALS: BP 134/90; PULSE 50; RESP 16; TEMP 36.6; O2SAT 97
[2025-04-14 07:37] LABS: NRBC Pct Auto 1.2 /100WBC (0.0-0.2)
[2025-04-14 07:40] LABS: White Blood Count 3.3 X10*3/uL (4.8-10.8)
[2025-04-14 07:41] LABS: Platelet Count 70 X10*3/uL (160-400)
[2025-04-14] MEDS: 0.9 % Sodium Chloride Flush 3 ML SYRINGE IVFLUSH ×3 (08:14→16:39)
[2025-04-14] MEDS: metroNIDAZOLE 0.75 % Gel 45 GM TUBE 1 APPL TOPICAL ×2 (08:15→20:06)
[2025-04-14] MEDS: Hydrocortisone 1 % Cream 28.35 GM TUBE 1 APPL TOPICAL (08:15)
[2025-04-14 09:12] LABS: Anion Gap 11 (12-20); Blood Urea Nitrogen 5 mg/dL (9-16); Calcium 8.3 mg/dL (8.4-10.2); Carbon Dioxide 25 mmol/L (22-29); Chloride 102 mmol/L (96-108); Creatinine Clr Calc Pharmacy 180.3; Estimated Glomerular Filt Rate > 60; Magnesium 2.1 mg/dL (1.6-2.6); Potassium 3.8 mmol/L (3.3-5.1); Sodium 134 mmol/L (135-145)
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
[2025-04-14 11:30] VITALS: BP 144/88; PULSE 50; RESP 18; TEMP 36.9; O2SAT 98
--- NOTE | 2025-04-14 12:24 | MHC.CM.PN ---
Per ROUNDS discussion, Patient is not yet medically cleared for dc (still weak/withdrawing); returning to the community is his goal and CM will continue to follow.
[2025-04-14 15:27] VITALS: BP 152/91; PULSE 50; RESP 16; TEMP 37.2; O2SAT 99
[2025-04-14 19:49] VITALS: BP 128/80; PULSE 81; RESP 16; TEMP 36.7; O2SAT 98
--- NOTE | 2025-04-14 22:48 | PC.RT ---
pt placed on overnight oximetry. starting Sat 97% on room air. HR 82
[2025-04-14 23:28] VITALS: BP 120/79; PULSE 68; RESP 16; TEMP 36.4; O2SAT 98
[2025-04-15 03:23] LABS: Anion Gap 13 (12-20); Blood Urea Nitrogen 13 mg/dL (9-16); Calcium 8.6 mg/dL (8.4-10.2); Carbon Dioxide 23 mmol/L (22-29); Chloride 101 mmol/L (96-108); Creatinine Clr Calc Pharmacy 152.5; Estimated Glomerular Filt Rate > 60; Magnesium 1.8 mg/dL (1.6-2.6); Potassium 3.5 mmol/L (3.3-5.1); Sodium 133 mmol/L (135-145)
[2025-04-15 03:53] VITALS: BP 116/76; PULSE 56; RESP 16; TEMP 36.7; O2SAT 96
--- NOTE | 2025-04-15 03:59 | PC.NURSE ---
Patient noted to have multiple pauses between 0342 and 0400, longest pause being 4.5 seconds. Patient is sleeping and asymptomatic. Provider notified, labs checked, pacer pads on patient. bed alarm on and call braun in place
--- NOTE | 2025-04-15 05:20 | ECG_ITS ---
Test Reason : CP Blood Pressure : */* mmHG Vent. Rate : 54 BPM Atrial Rate : 54 BPM P-R Int : 192 ms QRS Dur : 82 ms QT Int : 438 ms P-R-T Axes : 46 46 38 degrees QTcB Int : 415 ms Sinus bradycardia Early repolarization Abnormal ECG When compared with ECG of 14-Apr-2025 08:14, No significant change was found Referred By: Preeti Acevedo Electronically Signed By: TIFFANY FELIZ MD
[2025-04-15 07:33] VITALS: BP 125/84; PULSE 55; RESP 16; TEMP 36.1; O2SAT 98
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
[2025-04-15] MEDS: 0.9 % Sodium Chloride Flush 3 ML SYRINGE IVFLUSH ×3 (08:27→21:23)
[2025-04-15] MEDS: Hydrocortisone 1 % Cream 28.35 GM TUBE 1 APPL TOPICAL (08:30)
[2025-04-15] MEDS: metroNIDAZOLE 0.75 % Gel 45 GM TUBE 1 APPL TOPICAL ×2 (08:30→21:18)
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
[2025-04-15 11:22] VITALS: BP 111/74; PULSE 65; RESP 16; TEMP 36.1; O2SAT 97
[2025-04-15 15:54] VITALS: BP 120/74; PULSE 62; RESP 18; TEMP 36.7; O2SAT 98
[2025-04-15 19:42] VITALS: BP 138/83; PULSE 62; RESP 16; TEMP 36.8; O2SAT 98
[2025-04-15 23:33] VITALS: BP 133/77; PULSE 65; RESP 16; TEMP 36.4; O2SAT 98
[2025-04-16 03:45] VITALS: BP 118/69; PULSE 59; RESP 16; TEMP 36.3; O2SAT 98
[2025-04-16 07:03] VITALS: BP 121/81; PULSE 62; RESP 17; TEMP 36.7; O2SAT 98
[2025-04-16] MEDS: 0.9 % Sodium Chloride Flush 3 ML SYRINGE IVFLUSH (07:47)
[2025-04-16] MEDS: Hydrocortisone 1 % Cream 28.35 GM TUBE 1 APPL TOPICAL (07:49)
[2025-04-16] MEDS: metroNIDAZOLE 0.75 % Gel 45 GM TUBE 1 APPL TOPICAL (07:49)
--- NOTE | 2025-04-16 10:47 | MHC.CM.PN ---
Per HOSIERY LOOPER in [place], Patient will be medically cleared for dc today, to return to the community, self care. CM [place] [facility] [place] requested destination/[address] [place] [address], in [place]. HOSIERY LOOPER is aware.
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
--- NOTE | 2025-04-16 12:25 | PC.NURSE ---
Rachele Blanton (IT) and I went through the verification process on the unit of blood ([id number]) that the RN had an issue with last 04/12/25. Emulated ED RN to start the blood transfusion in the TAR and then emulated the MT RN to end the blood in the TAR. Had to override all the scan checklist as no longer had the blood product. Checked off all the required Verify Checklist. I co-signed the blood. Tried to have the RN or ED Educator assist but unavailable. Saw a pop up about pre VS but was able to get by this pop up by clicking no to not take the pre VS. Then we could start/end the blood with no issues. Notifed BB this was unit was electronically completed.
== END 2025-04-16 13:40 | disposition home or self-care (01) | DRG 351 ==
LOC: HO.ED 19:48 → HO.EDOVER 23:07 → HO.S3 04-12 08:33 → HO.IMC 04-13 02:35
PROVIDERS: Hospitalist; Internal Medicine; Nurse Practitioner Family; Student in an Organized Health Care Education/Training Program; Admitting Provider Student in an Organized Health Care Education/Training Program; Emergency Provider Emergency Medicine Emergency Medical Services; PCP Internal Medicine; Visit Provider Nurse Practitioner Acute Care
DX: M62.82 Rhabdomyolysis (principal); D61.818 Other pancytopenia; I49.5 Sick sinus syndrome; Y90.8 Blood alcohol level of 240 mg/100 ml or more; L71.9 Rosacea, unspecified; E87.6 Hypokalemia; L40.9 Psoriasis, unspecified; J44.9 Chronic obstructive pulmonary disease, unspecified; F14.10 Cocaine abuse, uncomplicated; L55.9 Sunburn, unspecified; Z59.02 Unsheltered homelessness; Z87.891 Personal history of nicotine dependence
CPT/HCPCS: 36415; 74177; 76705; 80048; 80053; 80076; 80307; 81001; 82105; 82272; 82306; 82550; 82607; 82728; 82746; 83010; 83540; 83605; 83615; 83690; 83735; 85007; 85025; 85027; 85045; 86704; 86706; 86709; 86803; 86850; 86900; 86901; 86923; 87340; 87389; 93005; 99285; J1756; J1808; J2470; J3411; J3475; J7120; P9016; Q9967; S9485

== ENCOUNTER → 2025-04-11 19:47 | Outpatient (BNV) | payer MEDICAID, SELFPAY | PROVIDERS: Admitting Provider Student in an Organized Health Care Education/Training Program; Emergency Provider Emergency Medicine Emergency Medical Services; Visit Provider Internal Medicine | DX: R00.2 Palpitations (principal) | CPT/HCPCS: 93010 ==

== ENCOUNTER 2025-04-11 22:49 | Outpatient (BNV) | payer MEDICAID, SELFPAY | END 2025-04-15 05:20 | PROVIDERS: Admitting Provider Student in an Organized Health Care Education/Training Program; Emergency Provider Emergency Medicine Emergency Medical Services; PCP Internal Medicine; Visit Provider Internal Medicine Cardiovascular Disease | DX: R00.1 Bradycardia, unspecified (principal) | CPT/HCPCS: 93010 ==

== ENCOUNTER 2025-04-11 22:49 | Outpatient (BNV) | payer MEDICAID, SELFPAY | END 2025-04-13 10:39 | PROVIDERS: Admitting Provider Student in an Organized Health Care Education/Training Program; Emergency Provider Emergency Medicine Emergency Medical Services; Visit Provider Radiology Diagnostic Radiology | DX: R16.0 Hepatomegaly, not elsewhere classified (principal) | CPT/HCPCS: 74177 ==

== ENCOUNTER 2025-04-11 22:49 | Outpatient (BNV) | payer MEDICAID, SELFPAY | END 2025-04-12 07:57 | PROVIDERS: Admitting Provider Student in an Organized Health Care Education/Training Program; Emergency Provider Emergency Medicine Emergency Medical Services; Visit Provider Radiology Diagnostic Radiology | DX: R16.2 Hepatomegaly with splenomegaly, not elsewhere classified (principal); K76.0 Fatty (change of) liver, not elsewhere classified; K80.20 Calculus of gallbladder without cholecystitis without obstruction | CPT/HCPCS: 76705 ==

== ENCOUNTER 2025-04-11 22:49 | Outpatient (BNV) | payer MEDICAID, SELFPAY | END 2025-04-14 08:14 | PROVIDERS: Admitting Provider Student in an Organized Health Care Education/Training Program; Emergency Provider Emergency Medicine Emergency Medical Services; PCP Internal Medicine; Visit Provider Internal Medicine Cardiovascular Disease | DX: R00.1 Bradycardia, unspecified (principal) | CPT/HCPCS: 93010 ==

== ENCOUNTER → 2025-04-11 22:49 | Outpatient (BNV) | payer OTHER, SELFPAY | PROVIDERS: Admitting Provider Student in an Organized Health Care Education/Training Program; Emergency Provider Emergency Medicine Emergency Medical Services; Visit Provider Nurse Practitioner Psychiatric/Mental Health | DX: F10.90 Alcohol use, unspecified, uncomplicated (principal) | CPT/HCPCS: 99222 ==

== ENCOUNTER → 2025-04-11 22:49 | Outpatient (BNV) | payer MEDICAID, SELFPAY | PROVIDERS: Admitting Provider Student in an Organized Health Care Education/Training Program; Emergency Provider Emergency Medicine Emergency Medical Services; Visit Provider Internal Medicine | DX: D61.818 Other pancytopenia (principal); F10.90 Alcohol use, unspecified, uncomplicated; E61.1 Iron deficiency; R79.89 Other specified abnormal findings of blood chemistry; R74.8 Abnormal levels of other serum enzymes | CPT/HCPCS: 99223 ==

== ENCOUNTER → 2025-04-11 22:49 | Outpatient (BNV) | payer MEDICAID, SELFPAY | PROVIDERS: Admitting Provider Student in an Organized Health Care Education/Training Program; Emergency Provider Emergency Medicine Emergency Medical Services; Visit Provider Nurse Practitioner Family | DX: R74.8 Abnormal levels of other serum enzymes (principal); R79.89 Other specified abnormal findings of blood chemistry; E61.1 Iron deficiency; F10.90 Alcohol use, unspecified, uncomplicated; D61.818 Other pancytopenia; E87.6 Hypokalemia; E83.42 Hypomagnesemia | CPT/HCPCS: 99233; 99499 ==

== ENCOUNTER → 2025-04-11 22:49 | Outpatient (BNV) | payer MEDICAID, SELFPAY | PROVIDERS: Admitting Provider Student in an Organized Health Care Education/Training Program; Emergency Provider Emergency Medicine Emergency Medical Services; PCP Internal Medicine; Visit Provider Internal Medicine Cardiovascular Disease | DX: I45.5 Other specified heart block (principal) | CPT/HCPCS: 99222 ==

== ENCOUNTER 2025-04-30 19:13 | Emergency (ER) | payer MEDICAID, SELFPAY ==
[2025-04-30 19:20] VITALS: BP 164/90; PULSE 86; O2SAT 96
--- NOTE | 2025-04-30 19:20 | PC.NURSE ---
assumed care of pt at this time, pt A+OX3, pt changed over into hospital gown and plants, placed on cradiac monitor, IV line placed and blood work sent to the lab
[2025-04-30 19:28] VITALS: BP 127/59; PULSE 95; RESP 16; TEMP 36.8; O2SAT 99; BMI 21.5
[2025-04-30 19:55] LABS: MANUAL DIFF FLAG NO
[2025-04-30 20:10] LABS: Alanine Aminotransferase 56 U/L (0-40); Albumin Level 4.6 g/dL (3.5-5.0); Alkaline Phosphatase 72 U/L (39-117); Anion Gap 16 (12-20); Aspartate Amino Transferase 98 U/L (5-37); Blood Urea Nitrogen 6 mg/dL (9-16); Calcium 8.8 mg/dL (8.4-10.2); Carbon Dioxide 25 mmol/L (22-29); Chloride 107 mmol/L (96-108); Creatinine Clr Calc Pharmacy 123.2; Estimated Glomerular Filt Rate > 60; Magnesium 1.9 mg/dL (1.6-2.6); Potassium 3.5 mmol/L (3.3-5.1); Sodium 144 mmol/L (135-145); Total Protein 8.7 g/dL (6.5-8.0)
[2025-04-30 21:12] LABS: Hematocrit 31.3 % (42.0-52.0); Hemoglobin 10.4 g/dl (14.0-18.0); Imm Gran Abs Auto 0.01 X10*3/uL (0.00-0.03); Imm Gran Pct Auto 0.3 % (0.0-0.4); Lymphocytes Absolute Auto 2.0 X10*3/uL (1.2-4.9); Mean Corpuscular HGB Conc 33.2 g/dl (31.0-36.0); Mean Corpuscular Hemoglobin 28.0 pg (27.0-33.0); Mean Corpuscular Volume 84.1 fL (80.0-98.0); NRBC Abs Auto 0.000 X10*3/uL (0.0-0.012); NRBC Pct Auto 0.0 /100WBC (0.0-0.2); Platelet Count 144 X10*3/uL (160-400); Red Blood Count 3.72 X10*6/uL (4.60-5.80); White Blood Count 4.0 X10*3/uL (4.8-10.8)
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
[2025-04-30 21:51] VITALS: BP 96/51; PULSE 66; RESP 18; O2SAT 95
[2025-04-30 22:55] VITALS: BP 96/58; PULSE 66; RESP 14; O2SAT 92
[2025-04-30 23:11] VITALS: BP 99/65; PULSE 55; RESP 13; O2SAT 95
--- NOTE | 2025-04-30 23:58 | ECG_ITS ---
Test Reason : HYPOTENSION Blood Pressure : */* mmHG Vent. Rate : 53 BPM Atrial Rate : 53 BPM P-R Int : 192 ms QRS Dur : 96 ms QT Int : 452 ms P-R-T Axes : 53 53 56 degrees QTcB Int : 424 ms Sinus bradycardia Otherwise normal ECG When compared with ECG of 15-Apr-2025 05:20, No significant change was found Referred By: Eric Price Electronically Signed By: ANU ROBLES
[2025-05-01 00:39] VITALS: BP 113/78; PULSE 57; RESP 12; TEMP 36.4; O2SAT 93
[2025-05-01 00:48] LABS: Glucose, Whole Blood 109 mg/dL (60-115)
[2025-05-01 02:42] VITALS: BP 94/57; PULSE 81; RESP 16
[2025-05-01 04:00] VITALS: BP 102/69; PULSE 74; RESP 15; O2SAT 94
[2025-05-01 06:21] VITALS: BP 96/65; PULSE 57; RESP 16; O2SAT 95
[2025-05-01 07:48] VITALS: BP 109/74; PULSE 76; RESP 12; O2SAT 95
--- NOTE | 2025-05-01 10:27 | MHC.CARE ---
There are no available male detox beds in the [facility] that accept Pt's insurance. Pt will be sent to [facility] in a [facility].
[2025-05-01 10:34] VITALS: BP 109/74; PULSE 76; RESP 12; TEMP 36.7; O2SAT 95
== END 2025-05-01 10:36 | disposition home or self-care (01) ==
PROVIDERS: Emergency Provider Internal Medicine
DX: F10.129 Alcohol abuse with intoxication, unspecified (principal); F14.90 Cocaine use, unspecified, uncomplicated; Y90.8 Blood alcohol level of 240 mg/100 ml or more; R11.0 Nausea; I95.9 Hypotension, unspecified; R00.1 Bradycardia, unspecified; Z79.899 Other long term (current) drug therapy; Z51.81 Encounter for therapeutic drug level monitoring
CPT/HCPCS: 36415; 80053; 80307; 82947; 83735; 85025; 93005; 96360; 96361; 99285; S9485

== ENCOUNTER → 2025-04-30 23:58 | Outpatient (BNV) | payer MEDICAID, SELFPAY | PROVIDERS: Emergency Provider Internal Medicine; Visit Provider Internal Medicine | DX: R00.1 Bradycardia, unspecified (principal) | CPT/HCPCS: 93010 ==

== ENCOUNTER 2025-05-10 22:23 | Emergency (ER) | payer MEDICAID, SELFPAY ==
--- NOTE | 2025-05-10 | ECG_ITS ---
Test Reason : FALL Blood Pressure : */* mmHG Vent. Rate : 66 BPM Atrial Rate : 66 BPM P-R Int : 188 ms QRS Dur : 90 ms QT Int : 400 ms P-R-T Axes : 29 26 45 degrees QTcB Int : 419 ms Normal sinus rhythm Normal ECG When compared with ECG of 01-May-2025 00:02, No significant change was found Referred By: Generic ED Physician Electronically Signed By: Alistair Arcos
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
[2025-05-10 22:33] VITALS: BP 127/90; BP 128/88; PULSE 82; PULSE 99; RESP 16; TEMP 36.7; O2SAT 100; O2SAT 96; BMI 23.0
--- NOTE | 2025-05-10 22:47 | MHC.EDTECH ---
bel[facility] [employer] [facility] shelf 4 4 bags total
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
[2025-05-10 23:56] LABS: Hematocrit 32.9 % (42.0-52.0); Hemoglobin 11.2 g/dl (14.0-18.0); Imm Gran Abs Auto 0.00 X10*3/uL (0.00-0.03); Imm Gran Pct Auto 0.0 % (0.0-0.4); Lymphocytes Absolute Auto 1.2 X10*3/uL (1.2-4.9); MANUAL DIFF FLAG SCAN; Mean Corpuscular HGB Conc 34.0 g/dl (31.0-36.0); Mean Corpuscular Hemoglobin 29.4 pg (27.0-33.0); Mean Corpuscular Volume 86.4 fL (80.0-98.0); NRBC Abs Auto 0.000 X10*3/uL (0.0-0.012); NRBC Pct Auto 0.0 /100WBC (0.0-0.2); Red Blood Count 3.81 X10*6/uL (4.60-5.80); SCAN SMEAR FLAG 1
[2025-05-11 00:07] LABS: Alanine Aminotransferase 88 U/L (0-40); Albumin Level 4.3 g/dL (3.5-5.0); Alkaline Phosphatase 72 U/L (39-117); Anion Gap 14 (12-20); Aspartate Amino Transferase 202 U/L (5-37); Blood Urea Nitrogen 7 mg/dL (9-16); Calcium 8.3 mg/dL (8.4-10.2); Carbon Dioxide 25 mmol/L (22-29); Chloride 110 mmol/L (96-108); Creatinine Clr Calc Pharmacy 159.7; Estimated Glomerular Filt Rate > 60; Potassium 3.3 mmol/L (3.3-5.1); Sodium 146 mmol/L (135-145); Total Protein 8.3 g/dL (6.5-8.0)
[2025-05-11 00:32] LABS: Platelet Count 60 X10*3/uL (160-400); White Blood Count 2.0 X10*3/uL (4.8-10.8)
[2025-05-11 04:27] VITALS: BP 106/71; PULSE 71; RESP 16; TEMP 36.6; O2SAT 100
[2025-05-11 06:13] VITALS: BP 106/72; PULSE 69; RESP 18; O2SAT 100
[2025-05-11 08:00] VITALS: BP 99/67; PULSE 71; RESP 12; TEMP 36.7; O2SAT 95
--- NOTE | 2025-05-11 09:12 | PC.NURSE ---
Pt awoke and asking for cup of water, pt tolerated well. VSS. Alert, calm and cooperative.
[2025-05-11 09:36] VITALS: BP 99/67; PULSE 71; RESP 12; TEMP 36.7; O2SAT 95
== END 2025-05-11 10:07 | disposition home or self-care (01) ==
PROVIDERS: Physician Assistant; Emergency Provider Emergency Medicine; PCP Internal Medicine
DX: S09.90XA Unspecified injury of head, initial encounter (principal); F10.920 Alcohol use, unspecified with intoxication, uncomplicated; R51.9 Headache, unspecified; F14.90 Cocaine use, unspecified, uncomplicated; Y90.9 Presence of alcohol in blood, level not specified; X58.XXXA Exposure to other specified factors, initial encounter; Y93.9 Activity, unspecified; Y92.9 Unspecified place or not applicable; Y99.8 Other external cause status; Z79.899 Other long term (current) drug therapy; Z87.891 Personal history of nicotine dependence
CPT/HCPCS: 36415; 70450; 80053; 84146; 85025; 93005; 99284

== ENCOUNTER → 2025-05-10 22:54 | Outpatient (BNV) | payer MEDICAID, SELFPAY | PROVIDERS: Emergency Provider Emergency Medicine; PCP Internal Medicine; Visit Provider Internal Medicine Cardiovascular Disease | DX: Z13.6 Encounter for screening for cardiovascular disorders (principal); W19.XXXA Unspecified fall, initial encounter | CPT/HCPCS: 93010 ==

== ENCOUNTER → 2025-05-10 23:14 | Outpatient (BNV) | payer MEDICAID, SELFPAY | PROVIDERS: Emergency Provider Emergency Medicine; Visit Provider Radiology Diagnostic Radiology | DX: R55 Syncope and collapse (principal) | CPT/HCPCS: 70450 ==

== ENCOUNTER 2025-05-12 21:09 | Emergency (ER) | payer MEDICAID, SELFPAY ==
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
[2025-05-12 21:34] VITALS: BP 105/74; BP 142/76; PULSE 108; PULSE 85; RESP 13; TEMP 36.9; O2SAT 98; BMI 24.6
[2025-05-12] MEDS: diazePAM 10 MG/2 ML CARTRIDGE 5 MG IVPUSH (21:52)
[2025-05-12 21:56] LABS: Hematocrit 31.9 % (42.0-52.0); Hemoglobin 10.5 g/dl (14.0-18.0); Imm Gran Abs Auto 0.00 X10*3/uL (0.00-0.03); Imm Gran Pct Auto 0.0 % (0.0-0.4); Lymphocytes Absolute Auto 1.3 X10*3/uL (1.2-4.9); MANUAL DIFF FLAG SCAN; Mean Corpuscular HGB Conc 32.9 g/dl (31.0-36.0); Mean Corpuscular Hemoglobin 28.7 pg (27.0-33.0); Mean Corpuscular Volume 87.2 fL (80.0-98.0); NRBC Abs Auto 0.000 X10*3/uL (0.0-0.012); NRBC Pct Auto 0.0 /100WBC (0.0-0.2); Red Blood Count 3.66 X10*6/uL (4.60-5.80); SCAN SMEAR FLAG 1
--- NOTE | 2025-05-12 22:04 | PC.NURSE ---
EDINSON with complaints of HS after fall from suspected seziure. PT is a daily drinker and reports not drinking enough today and believes he had a seizure. PT a/o x3, neuros intact. 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 daily IVDU, IV line placed in Left ac, labs drawn and sent to labs. Pt placed on hall monitor, seizure precautions in place. PT o2 dropping to 88% intermittently- placed on 2L NS. Awaiting Imaging
[2025-05-12 22:15] LABS: Acetaminophen LAB < 3 mcg/mL (<30); Alanine Aminotransferase 105 U/L (0-40); Albumin Level 4.2 g/dL (3.5-5.0); Alkaline Phosphatase 103 U/L (39-117); Anion Gap 14 (12-20); Aspartate Amino Transferase 242 U/L (5-37); Blood Urea Nitrogen 6 mg/dL (9-16); Calcium 8.3 mg/dL (8.4-10.2); Carbon Dioxide 27 mmol/L (22-29); Chloride 108 mmol/L (96-108); Creatinine Clr Calc Pharmacy 143.7; Estimated Glomerular Filt Rate > 60; Magnesium 1.8 mg/dL (1.6-2.6); Potassium 3.4 mmol/L (3.3-5.1); Salicylate < 5.0 mg/dL (15-30); Sodium 146 mmol/L (135-145); Total Protein 8.3 g/dL (6.5-8.0)
[2025-05-12 22:26] LABS: Platelet Count 56 X10*3/uL (160-400); White Blood Count 2.3 X10*3/uL (4.8-10.8)
--- NOTE | 2025-05-12 23:14 | PC.NURSE ---
Notified AMADA jimenes, of PTs CIWA score
--- NOTE | 2025-05-13 02:13 | PC.NURSE ---
APRIL 2. Pt requested and provided food and po fluids. call braun within reach, seizure precuations remain. plan of care ongoing
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
[2025-05-13 04:48] VITALS: BP 104/70; PULSE 77; RESP 14; O2SAT 94
[2025-05-13 08:20] VITALS: BP 98/60; PULSE 95; RESP 16; O2SAT 96
[2025-05-13 10:54] VITALS: BP 94/59; PULSE 84; RESP 12; O2SAT 96
[2025-05-13 11:27] VITALS: BP 115/82; PULSE 84; RESP 13; TEMP -17.7; TEMP 0; O2SAT 96
== END 2025-05-13 11:30 | disposition home or self-care (01) ==
PROVIDERS: Physician Assistant Medical; Emergency Provider Emergency Medicine
DX: F10.120 Alcohol abuse with intoxication, uncomplicated (principal); Y90.8 Blood alcohol level of 240 mg/100 ml or more; F19.10 Other psychoactive substance abuse, uncomplicated; Z87.891 Personal history of nicotine dependence; Z91.81 History of falling
CPT/HCPCS: 36415; 70450; 72125; 80053; 80143; 80179; 80307; 83735; 85025; 96374; 99284; J3360; S9485

== ENCOUNTER → 2025-05-12 21:41 | Outpatient (BNV) | payer MEDICAID, SELFPAY | PROVIDERS: Visit Provider Radiology Diagnostic Radiology | DX: M85.88 Other specified disorders of bone density and structure, other site (principal); S09.90XA Unspecified injury of head, initial encounter | CPT/HCPCS: 70450; 72125 ==

== ENCOUNTER 2025-05-15 19:58 | Emergency (ER) | payer MEDICAID, SELFPAY ==
[2025-05-15 20:05] VITALS: BP 122/73; BP 146/84; PULSE 72; PULSE 86; RESP 16; TEMP 36.6; O2SAT 97; O2SAT 98; BMI 25.8
--- NOTE | 2025-05-15 21:23 | ECG_ITS ---
Test Reason : etoh Blood Pressure : */* mmHG Vent. Rate : 50 BPM Atrial Rate : 50 BPM P-R Int : 186 ms QRS Dur : 94 ms QT Int : 462 ms P-R-T Axes : 47 56 51 degrees QTcB Int : 421 ms Sinus bradycardia Otherwise normal ECG When compared with ECG of 10-May-2025 22:54, No significant change was found Referred By: Nina Bates Electronically Signed By: TIFFANY FELIZ MD
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
[2025-05-15 21:57] LABS: Hemoglobin 11.0 g/dl (14.0-18.0); Mean Corpuscular Volume 87.4 fL (80.0-98.0); NRBC Abs Auto 0.000 X10*3/uL (0.0-0.012); NRBC Pct Auto 0.0 /100WBC (0.0-0.2); PLT CLUMP 1; SCAN SMEAR FLAG 1
[2025-05-15 21:59] LABS: Hematocrit 32.6 % (42.0-52.0); Imm Gran Abs Auto 0.01 X10*3/uL (0.00-0.03); Imm Gran Pct Auto 0.5 % (0.0-0.4); Lymphocytes Absolute Auto 1.0 X10*3/uL (1.2-4.9); MANUAL DIFF FLAG SCAN; Mean Corpuscular HGB Conc 33.7 g/dl (31.0-36.0); Mean Corpuscular Hemoglobin 29.5 pg (27.0-33.0); Red Blood Count 3.73 X10*6/uL (4.60-5.80)
[2025-05-15 22:14] LABS: Platelet Count 60 X10*3/uL (160-400); White Blood Count 2.2 X10*3/uL (4.8-10.8)
[2025-05-15 22:15] LABS: Alanine Aminotransferase 96 U/L (0-40); Albumin Level 4.1 g/dL (3.5-5.0); Alkaline Phosphatase 94 U/L (39-117); Anion Gap 16 (12-20); Aspartate Amino Transferase 186 U/L (5-37); Blood Urea Nitrogen 6 mg/dL (9-16); Calcium 8.3 mg/dL (8.4-10.2); Carbon Dioxide 29 mmol/L (22-29); Chloride 105 mmol/L (96-108); Creatinine Clr Calc Pharmacy 139.8; Estimated Glomerular Filt Rate > 60; Magnesium 1.9 mg/dL (1.6-2.6); Potassium 3.6 mmol/L (3.3-5.1); Sodium 146 mmol/L (135-145); Total Protein 8.0 g/dL (6.5-8.0)
[2025-05-15 22:20] LABS: Troponin-I High Sensitivity 14.2 ng/L (<3.5-35.0)
[2025-05-15 22:55] VITALS: BP 107/63; PULSE 72; RESP 18; O2SAT 95
[2025-05-16 06:00] VITALS: BP 108/58; PULSE 68; RESP 16; TEMP 36.1; O2SAT 96
[2025-05-16 11:15] VITALS: BP 132/81; PULSE 89; RESP 17; TEMP 37.3; O2SAT 96
--- NOTE | 2025-05-16 11:16 | PC.NURSE ---
Patient is awake asking for fluids and asking to leave.
[2025-05-16 11:32] VITALS: BP 132/81; PULSE 89; RESP 17; TEMP 37.3; O2SAT 96
== END 2025-05-16 11:33 | disposition home or self-care (01) ==
PROVIDERS: Emergency Provider Emergency Medicine; PCP Internal Medicine
DX: F10.129 Alcohol abuse with intoxication, unspecified (principal); Y90.8 Blood alcohol level of 240 mg/100 ml or more; R55 Syncope and collapse; R00.1 Bradycardia, unspecified; Z51.81 Encounter for therapeutic drug level monitoring; Z79.899 Other long term (current) drug therapy
CPT/HCPCS: 36415; 80048; 80076; 80307; 83735; 84484; 85025; 93005; 99283; 99284

== ENCOUNTER → 2025-05-15 21:23 | Outpatient (BNV) | payer MEDICAID, SELFPAY | PROVIDERS: Emergency Provider Emergency Medicine; PCP Internal Medicine; Visit Provider Internal Medicine Cardiovascular Disease | DX: R00.1 Bradycardia, unspecified (principal) | CPT/HCPCS: 93010 ==

== ENCOUNTER 2025-05-25 19:27 | Emergency (ER) | payer MEDICAID, SELFPAY ==
--- NOTE | ~2025-05-25 | CT_ITS ---
CLINICAL HISTORY: fall, etoh CT cervical spine without contrast Comparison: 05/12/2025 Findings: Vertebral alignment is within normal limits. There is degenerative disc change at C5-C6. No acute fractures or dislocations. Visualized intracranial contents are unremarkable. Soft tissues of the neck are normal. Lung apices are clear. IMPRESSION: No acute findings. This document has been electronically signed by: Talon Anaya MD on 05/25/2025 21:51:02
--- NOTE | ~2025-05-25 | CT_ITS ---
CLINICAL HISTORY: fall, etoh CT head without contrast Comparison: CT/SR - CT HEAD/BRAIN WO IV CON - 05/12/25 22:09 EDT Findings: No intra-axial mass, midline shift, hydrocephalus, or acute hemorrhage. Stable right inferior frontal lobe area of encephalomalacia and diffuse mild cerebral atrophy, unchanged in the interval. The visualized paranasal sinuses and mastoid air cells are normal. The orbits are within normal limits. No skull fracture. IMPRESSION: 1. No acute intracranial findings specifically, no acute intracranial hemorrhage. 2. Diffuse generalized cerebral volume loss as well as right inferior frontal lobe area of encephalomalacia, unchanged in the interval. This document has been electronically signed by: Marquis Hernandez MD on 05/25/2025 22:14:07
[2025-05-25 20:14] VITALS: BP 118/84; PULSE 91; O2SAT 96
[2025-05-25 20:17] VITALS: BP 121/80; PULSE 71; RESP 16; TEMP 36.7; O2SAT 92; BMI 22.1
--- NOTE | 2025-05-25 21:09 | PC.NURSE ---
safety check done by security, nothing found. pt calm and cooperative
[2025-05-25 21:30] LABS: Hematocrit 34.6 % (42.0-52.0); Hemoglobin 11.6 g/dl (14.0-18.0); Imm Gran Abs Auto 0.00 X10*3/uL (0.00-0.03); Imm Gran Pct Auto 0.0 % (0.0-0.4); Lymphocytes Absolute Auto 1.3 X10*3/uL (1.2-4.9); MANUAL DIFF FLAG SCAN; Mean Corpuscular HGB Conc 33.5 g/dl (31.0-36.0); Mean Corpuscular Hemoglobin 30.0 pg (27.0-33.0); Mean Corpuscular Volume 89.4 fL (80.0-98.0); NRBC Abs Auto 0.000 X10*3/uL (0.0-0.012); NRBC Pct Auto 0.0 /100WBC (0.0-0.2); Platelet Count 77 X10*3/uL (160-400); Red Blood Count 3.87 X10*6/uL (4.60-5.80); SCAN SMEAR FLAG 1; White Blood Count 2.1 X10*3/uL (4.8-10.8)
[2025-05-25 21:40] LABS: Cannabinoid Screen Urine Not Detected (Not Detect)
[2025-05-25 21:48] LABS: Anion Gap 20 (12-20); Blood Urea Nitrogen 6 mg/dL (9-16); Calcium 8.9 mg/dL (8.4-10.2); Carbon Dioxide 26 mmol/L (22-29); Chloride 106 mmol/L (96-108); Creatinine Clr Calc Pharmacy 128.9; Estimated Glomerular Filt Rate > 60; Magnesium 1.8 mg/dL (1.6-2.6); Potassium 3.9 mmol/L (3.3-5.1); Sodium 148 mmol/L (135-145)
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
[2025-05-26 01:38] VITALS: BP 97/56; PULSE 78; RESP 16; TEMP 36.6; O2SAT 93
--- NOTE | 2025-05-26 01:42 | PC.NURSE ---
pt resting comfortably w/eyes closed in hallway recliner. had a sandwich and few cups of water per request
[2025-05-26 06:29] VITALS: BP 120/77; PULSE 74; RESP 14; TEMP 36.9; O2SAT 95
--- NOTE | 2025-05-26 06:32 | PC.NURSE ---
pt ambulated to the bathroom with steady gait, requesting medication for headache and nausea. MD hernandez
--- NOTE | 2025-05-26 06:38 | PC.NURSE ---
pt requesting detox
--- NOTE | 2025-05-26 07:24 | PC.NURSE ---
Pt is currently resting comfortably in recliner, pt declining wanting any breakfast at this time. Awaiting recovery
[2025-05-26 09:55] VITALS: BP 113/73; PULSE 67; RESP 14; TEMP 37.2; O2SAT 94
--- NOTE | 2025-05-26 10:08 | PC.NURSE ---
Pt is up and walking to bathroom at this time, continuing to decline wanting any food at this time. careteam at bedside to discuss rehab/detox options for patient.
[2025-05-26 12:05] VITALS: BP 124/86; PULSE 81; RESP 18; TEMP 36.7; O2SAT 94
[2025-05-26 14:21] VITALS: BP 131/84; PULSE 61; RESP 18; O2SAT 96
--- NOTE | 2025-05-26 15:22 | PHA.MEDREC ---
Addendum entered by Herlinda Chavez RPh 05/26/25 16:24: REVIEWED BY PHARMACIST Original Note: Pharmacy Consult ? Medication Reconciliation Pharmacy has completed the medication reconciliation. Spoke with pt and he confirmed he is not taking any medications at this time.
--- NOTE | 2025-05-26 18:51 | PC.NURSE ---
pt reporting nausea, headache and tremors. reports hx of withdrawal seizure, medicated with Ativan po
[2025-05-26 22:07] VITALS: BP 130/83; PULSE 61; RESP 14; TEMP 37.2; O2SAT 95
[2025-05-27 05:48] VITALS: BP 146/90; PULSE 70; RESP 16; TEMP 36.1; O2SAT 96
--- NOTE | 2025-05-27 06:10 | PC.NURSE ---
pt tremulous and nauseous. made aware and ordered zofran and ativan. Medication administered per DEC. Pt request asaf pants. given to pt and he went to the bathroom to change.
[2025-05-27 08:01] VITALS: BP 146/90; PULSE 70; RESP 16; TEMP 36.1; O2SAT 96
== END 2025-05-27 08:06 | disposition home or self-care (01) ==
PROVIDERS: Emergency Medicine; Physician Assistant; Emergency Provider Emergency Medicine
DX: F10.129 Alcohol abuse with intoxication, unspecified (principal); F14.10 Cocaine abuse, uncomplicated; Y90.8 Blood alcohol level of 240 mg/100 ml or more; R41.82 Altered mental status, unspecified; M54.2 Cervicalgia; R51.9 Headache, unspecified; Z87.891 Personal history of nicotine dependence; Z79.899 Other long term (current) drug therapy; Z51.81 Encounter for therapeutic drug level monitoring
CPT/HCPCS: 36415; 70450; 72125; 80048; 80307; 83735; 85025; 99285; S9485

== ENCOUNTER → 2025-05-25 19:59 | Outpatient (BNV) | payer MEDICAID, SELFPAY | PROVIDERS: Visit Provider Specialist | DX: M50.322 Other cervical disc degeneration at C5-C6 level (principal); R90.89 Other abnormal findings on diagnostic imaging of central nervous system | CPT/HCPCS: 70450; 72125 ==

== ENCOUNTER 2025-07-11 00:06 | Emergency (ER) | payer MEDICAID, SELFPAY ==
[2025-07-11 00:17] VITALS: BP 121/83; PULSE 59; PULSE 69; RESP 16; TEMP 36.4; O2SAT 95; O2SAT 96; BMI 25.2
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
[2025-07-11 00:47] LABS: MANUAL DIFF FLAG NO
[2025-07-11 00:50] LABS: Hematocrit 35.2 % (42.0-52.0); Hemoglobin 12.0 g/dl (14.0-18.0); Imm Gran Abs Auto 0.00 X10*3/uL (0.00-0.03); Imm Gran Pct Auto 0.0 % (0.0-0.4); Lymphocytes Absolute Auto 2.0 X10*3/uL (1.2-4.9); Mean Corpuscular HGB Conc 34.1 g/dl (31.0-36.0); Mean Corpuscular Hemoglobin 29.9 pg (27.0-33.0); Mean Corpuscular Volume 87.6 fL (80.0-98.0); NRBC Abs Auto 0.000 X10*3/uL (0.0-0.012); NRBC Pct Auto 0.0 /100WBC (0.0-0.2); Platelet Count 161 X10*3/uL (160-400); Red Blood Count 4.02 X10*6/uL (4.60-5.80); White Blood Count 3.9 X10*3/uL (4.8-10.8)
--- NOTE | 2025-07-11 01:00 | PC.NURSE ---
TW attempted to obtain CIWA score. PT refusing to answer questions saying why are you asking me this, do you know what withdrawals are tw explained the need for assessment. PT endorsing N/V. Known hx of withdrawal seziure. Seziure precautions in place. Provider at bedside. New orders placed.
[2025-07-11 01:04] LABS: Appearance Urine Clear; Glucose Urine UA Negative (Negative); PH 6.0 (5.0-9.0); Specific Gravity - Urine 1.010 (1.005-1.025)
[2025-07-11 01:06] LABS: Alanine Aminotransferase 58 U/L (0-40); Albumin Level 4.5 g/dL (3.5-5.0); Alkaline Phosphatase 78 U/L (39-117); Anion Gap 14 (12-20); Aspartate Amino Transferase 108 U/L (5-37); Blood Urea Nitrogen 5 mg/dL (9-16); Calcium 8.7 mg/dL (8.4-10.2); Carbon Dioxide 32 mmol/L (22-29); Chloride 108 mmol/L (96-108); Creatinine Clr Calc Pharmacy 138.3; Estimated Glomerular Filt Rate > 60; Lipase 55 U/L (8-78); Magnesium 2.0 mg/dL (1.6-2.6); Potassium 3.8 mmol/L (3.3-5.1); Sodium 150 mmol/L (135-145); Total Protein 8.4 g/dL (6.5-8.0)
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
[2025-07-11 01:15] LABS: Cannabinoid Screen Urine Not Detected (Not Detect)
[2025-07-11 01:25] LABS: Acetaminophen LAB < 3 mcg/mL (<30); Salicylate < 5.0 mg/dL (15-30)
--- NOTE | 2025-07-11 01:29 | PC.NURSE ---
pt medicated as per MAR
[2025-07-11 01:47] VITALS: BP 109/75; PULSE 57; RESP 13; TEMP 36.3; O2SAT 96
[2025-07-11 04:00] VITALS: BP 94/65; PULSE 70; RESP 13; TEMP 36.8; O2SAT 99
--- NOTE | 2025-07-11 05:39 | PC.NURSE ---
IV line placed in LAC. Awaiting provider orders
[2025-07-11 06:00] VITALS: BP 103/74; PULSE 77; RESP 14; TEMP 36.8; O2SAT 99
[2025-07-11 07:32] LABS: Anion Gap 14 (12-20); Blood Urea Nitrogen 6 mg/dL (9-16); Calcium 8.3 mg/dL (8.4-10.2); Carbon Dioxide 30 mmol/L (22-29); Chloride 109 mmol/L (96-108); Creatinine Clr Calc Pharmacy 153.4; Estimated Glomerular Filt Rate > 60; Potassium 3.5 mmol/L (3.3-5.1); Sodium 149 mmol/L (135-145)
--- NOTE | 2025-07-11 07:49 | PC.NURSE ---
Spoke to patient states he would like to go to detox. Dr. Arechiga notified.
[2025-07-11 08:00] VITALS: BP 106/70; PULSE 82; RESP 13; TEMP 36.9; O2SAT 99
--- NOTE | 2025-07-11 08:38 | PC.NURSE ---
Addendum entered by Prerna Marinelli RN 07/11/25 08:44: Encourage patient to drink fluids. Original Note: Spoke to Dr. Arechiga regarding NA-148 states just give D5/NS as a bolus and his NA should be better. IV bolus given, prn angio removed. Patient states he would like to go to detox. Will give report to Lulú in pod will take over patient care.
--- NOTE | 2025-07-11 12:37 | MHC.CARE ---
Pt does not meet the criteria for a higher level of care and declined substance use services. Pt will discharge. ED provider in agreement.
[2025-07-11 13:05] VITALS: BP 106/70; PULSE 82; RESP 13; TEMP 36.9; O2SAT 99
== END 2025-07-11 13:07 | disposition home or self-care (01) ==
PROVIDERS: Emergency Medicine; Emergency Provider Emergency Medicine Emergency Medical Services
DX: F10.229 Alcohol dependence with intoxication, unspecified (principal); E87.0 Hyperosmolality and hypernatremia; R45.851 Suicidal ideations; Z79.899 Other long term (current) drug therapy
CPT/HCPCS: 36415; 80048; 80053; 80143; 80179; 80307; 81003; 83690; 83735; 85025; 96360; 96361; 99283; 99285; S9485

== ENCOUNTER 2025-07-11 21:20 | Emergency (ER) | payer MEDICAID, SELFPAY ==
[2025-07-11 21:27] VITALS: BP 135/85; PULSE 86; O2SAT 98
[2025-07-11 21:42] VITALS: BP 125/96; PULSE 83; RESP 18; TEMP 36.8; O2SAT 98; BMI 25.2
--- OUTSIDE RECORDS SUMMARY | 2025-07-11 21:56 | XMS_ITS | Data Portability ---
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 Not available 08/04/2023 12:56:57 Plan of Treatment Reminders Order Date Submit Date Provider Last Modified By Organization Details Last Modified Time Details Appointments None record ed. Lab None record ed. Referral None record ed. Procedures None record ed. Surgeries None record ed. Imaging None record ed. Medication Orders None record ed. Patient TargetsNo targets recorded. Patient InstructionsNo instructions recorded. Reason for Referral None Reported. 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, [address], [place], [address], [facility] [employer] 3 18:07:02 Asthenia 40204141 Active 2022 JESSICADOROTA HALEY, [facility] [address] [facility], [address], [place], [address], [facility] [employer] 3 18:07:05 Bradycardia 72677297 Active 2022 JESSICA HALEY, [facility] [address] [facility], [address], [place], [address], [facility] [employer] 3 18:07:11 Laboratory test result abnormal 443445178 Active 2022 JESSICADOROTA HALEY, [facility] [address] [facility], [address], [place], [address], [facility] [employer] 3 18:07:15 Problem Notes None recorded. Medical Equipment None Reported. Allergies Allergen ID Allergen Name Allergen Category Reaction Reaction Severity Criticality Documentation Date Start Date Code Code System Note Provider Name and Address Organization Details Recorded Time 44949 shellfish derived food,medi cation Not available Not available Not available 05/19/2020 Riri harman, [facility] [employer] 0 08:43:01 Medications Not known to be on any medication Vitals Date Recorded Heart rate Respiratory rate Body temperature Oxygen saturation Oxygen saturation in Arterial blood by Pulse oximetry Systolic And Diastolic Provider Name and Address Organization Details Last Updated DateTime 3 78 /min 18 /min 97.4 [degF] 99 % 99 % 115/67 mm[Hg] Dayana Sarmiento -Kierkla [address], [address], [place], [address], [facility] [employer] 3 10:21:31 Social History Question Answer Notes LastModified by Organizat ion Details LastModified Time Tobacco Smoking Status Current Every Day Smoker 2 a day MIKE REYNOLDS [address] [facility], [address], [place], [address], [facility] 07/19/2023 17:16:49 Do You Have An Advance Directive? Yes Information not available 07/19/2023 What Is Your Code Status? Full Code Information not available 07/19/2023 Which Illicit Or Recreational Drugs Have You Used? Crack Cocaine Information not available 07/19/2023 Where Do You Live? Other Homeless Information not available 07/19/2023 Legal Guardian? No Informati on not available 07/19/2023 Do You Have A Medical Power Of Accounts Receivable Clerk? No Information not available 07/19/2023 What Was The Date Of Your Most Recent Tobacco Screening? 07/19/2023 Information not available 07/19/2023 Do You Have An Out Of Hospital DNR? No Information not available 07/19/2023 What Is Your Relationship Status? Single Information not available 07/19/2023 How Much Tobacco Do You Smoke? 1 PPW Information not available 07/19/2023 Has Tobacco Cessation Counseling Been Provided? Yes Information not available 07/19/2023 On What Date Was Tobacco Cessation Counseling Provided? 07/19/2023 Information not available 07/19/2023 How Many Years Have You Smoked Tobacco? 10 Information not available 07/19/2023 Have You Used IV Drugs? No Information not available 07/19/2023 Sex: Unknown Functional Status Question Answer Note LastModified by Organizat ion Details LastModified Time How many times per week do you consume alcohol? 5-7 times per week Information not available 07/19/2023 Do you use any illicit or recreational drugs? Yes Information not available 07/19/2023 Do you or have you ever used any other forms of tobacco or nicotine? Yes vaping Information not available 07/19/2023 What is your level of alcohol consumption? Heavy 6 large beers and vodka daily Information not available 07/19/2023 Do you or have you ever used e-cigarettes or vape? Former user of electronic cigarettes Information not available 07/19/2023 Mental Status Question Answer Note LastModified by Organization D etails LastModified Time Do you feel stressed (tense, restless, nervous, or anxious, or unable to sleep at night)? [id number] Information not available 07/19/2023 Family History Relationship Description Onset Age of this Age Resolved Age Notes LastModified by Organization Details LastModified Time Father Diabetes mellitus Not available 2022 17:11:28 Mother Diabetes mellitus Not available 2022 17:11:46 Mother Essential hypertension Not available 01/2023 17:12:05 Maternal Grandfather Heart disease Not available 2022 17:12:26 Medical History No medical history recorded. Immunizations Vaccine Type Date Status Note Provider Nam e and Address Organization Details Recorded Time COVID-19, mRNA, LNP-S, bivalent, PF, 50 mcg/0.5 mL or 25mcg/0.25 mL dose 2 completed Nicole harman [facility] 10/17/2023 11:43:55 Tdap 2 completed Nicole harman [facility] 01/22/2024 14:21:00 Td (adult), 5 Lf tetanus toxoid, preservative free, adsorbed 7 completed Nicole harman [facility] 01/22/2024 14:21:20 Td (adult), 5 Lf tetanus toxoid, preservative free, adsorbed 8 completed Nicole harman [facility] 01/22/2024 14:21:35 pneumococcal polysaccharide PPV23 8 completed Nicole harman [facility] 01/22/2024 14:21:54 pneumococcal polysaccharide PPV23 6 completed Nicole harman [facility] 01/22/2024 14:22:04 Influenza, adjuvanted, quadrivalent, PF 3 completed Nicole harman [facility] 01/22/2024 14:23:02 Past Encounters Encounter ID Performer Location Encounter Start Date Encounter Closed Date Diagnosis/Indication Diagnosis SNOMED-CT Code Diagnosis ICD10 Code Diagnosis IMO Codes Diagnosis Note [id number] MIKE Chen [facility] on [address] [place] [address] 05/19/2020 08:42:26 05/29/2020 13:18:57 Alcohol dependence 62524987 F10.288 Hx of withdrawal seizuresFo lic acid 1 mg dailyThiam ine 100 mg dailyPT OT eval and treat Sinus bradycardia 774022 05 R00.1 Implanted youth nutritional monitor in placeF/u with cardiology Monitor HR Asthma 063545306 J45.99 8 Monitor respirator y status Liver enzy mes level above reference range 058970636 R74.8 Secondary to heavy ETOH useRepeat and monitor [id number] Lois Multani MD [facility] on [address] [place] [id number] 05/20/2020 07:06:00 05/29/2020 14:50:19 Alcohol dependence 77170248 F10.20 thiamine 100 mg dailyfolic acid 1 mg dailysocia l work fu to encourage ongoing support and treatment Asthenia 35888930 R53.1 PT/OTwill monitor Liver enzy mes level above reference range 096135815 R74.8 will monitor Sinus bradycardia 567491 05 R00.1 resolvedwi ll monitor [id number] MIKE Chen [facility] on [address] [place] [address] 05/26/2020 09:30:59 05/29/2020 13:59:21 Alcohol dependence 01906685 F10.288 Hx of withdrawal seizuresFo lic acid 1 mg dailyThiam ine 100 mg dailyNo sxs of withdrawal noted Sinus bradycardia 857712 05 R00.1 Implanted youth nutritional monitor in placeF/u with cardiology Monitor HR-ranges 58-88 Asthma 728795758 J45.99 8 Monitor respirator y statusOn no medication s [id number] MIKE Chen [facility] on [address] [place] [id number] 06/12/2020 08:31:05 06/16/2020 10:01:54 Alcohol dependence 42957618 F10.288 Hx of withdrawal seizuresFo lic acid 1 mg dailyThiam ine 100 mg dailyNo signs of withdrawal currently Sinus bradycardia 315744 05 R00.1 Implanted youth nutritional monitor in placeF/u with cardiology Monitor HR Asthma 730714706 J45.99 8 Monitor respirator y status Liver enzy mes level above reference range 013282651 R74.8 Secondary to heavy ETOH useRepeat LFTs 06/15 [id number] Riri Espinal [facility] on [address] [place] [id number] 06/16/2020 11:47:30 06/18/2020 11:34:00 Alcohol dependence 65446740 F10.288 Hx of withdrawal seizuresFo lic acid 1 mg dailyThiam ine 100 mg dailyNo signs of withdrawal Encouraged to remain sober Sinus bradycardia 878580 05 R00.1 Implanted youth nutritional monitor in placeRemai ns asymptomat ic F/u with cardiology Asthma 769677409 J45.99 8 No respirator y issues currentlyF /u with PCP Liver enzy mes level above reference range 490746798 R74.8 Secondary to heavy ETOH useNow resolved [id number] JESSICA HALEY [facility] on [address] [place] [id number] 07/19/2023 15:26:02 07/27/2023 10:51:11 Laboratory test result abnormal 361816006 R89.9 In acute care rhabdo, hypokalemi a, transamini tis, hypomagnes emia , thrombocyt openia, normocytic , metabolic acidosis , normocytic anemia likely related to etoh abuse,,tx with IVF and supplement al replacemen tmonitor labs Alcohol dependence 53721 003 F10.288 hx seizures with withdrawal witnessed clonic tonic seizurestr eated with ativan and phenobarbi talencoura ged abstinence SUDs referralmo nitor for seizure activityco ntinue thiamine 100 mg qdfolate [address] 666 mg tid Bradycardia 33020383 R00 .1 Hx of syncope with implantabl e loop recorderSB in acute care with pausescard iology and EPS consulted- ILR interrogat ed, showed no correlatio n of syncope and pauses, no need for PPM. ILR removed.re commending PSG outpatient to r/o [facility]- referral paced in [facility] Harmful pa ttern of use of cocaine 81096263 F14.10 refer to SUDsencour aged abstinence provide supportive services /refer to [facility] Homeless 35214951 Z59.00 social service director for support and services Asthenia 77386369 R53.1 impaired gait/weakn essPT/OT evalMorse 10 Asthma 490659964 J45.99 8 hxnot currently on medication smonitor for resp/clini aldair changes [id number] Lois Multani MD [facility] on [address] [place] [id number] 07/21/2023 05:52:30 07/27/2023 11:40:25 Asthenia 46771283 R53.1 PT/OTwill monitor Alcohol dependence 29545 003 F10.288 thiamine 100 mg dailyfolic acid 1 mg dailyacamp rosate 666 mg tldsocial work fu to encourage ongoing support and treatment Bradycardia 96601838 R00 .1 not associated with syncopewil l monitor History of seizure due to alcohol withdrawal 0273302128 09460 Z86.69 completed withdrawal protocolwi ll monitor [id number] MIEK REYNOLDS [facility] on [address] [place] [id number] 07/24/2023 09:10:19 07/31/2023 15:03:51 Alcohol dependence 06922861 F10.288 there has been no seizure activity reported. hx seizures with withdrawal witnessed clonic tonic seizurestr eated with ativan and phenobarbi talencoura ged abstinence SUDs referralmo nitor for seizure activityco ntinue thiamine 100 mg qdfolate [address] 666 mg tid Laboratory test result abnormal 369760604 R89.9 In acute care rhabdo, hypokalemi a, transamini tis, hypomagnes emia , thrombocyt openia, normocytic , metabolic acidosis , normocytic anemia likely related to etoh abuse,,tx with IVF and supplement al replacemen tmonitor labs Bradycardia 20196697 R00 .1 denies any cardiac sx today. apical rate 70 Hx of syncope with implantabl e loop recorderSB in acute care with pausescard iology and EPS consulted- ILR interrogat ed, showed no correlatio n of syncope and pauses, no need for PPM. ILR removed.re commending PSG outpatient to r/o RAND- referral paced in [facility] Harmful pa ttern of use of cocaine 90987130 F14.10 refer to SUDsencour aged abstinence provide supportive services /refer to Homeless 27294907 Z59.00 social service director for support and services Asthenia 67171763 R53.1 plan for OTimpaired gait/weakn ess [place] 10 Asthma 862582169 J45.99 8 hxnot currently on medication smonitor for resp/clini aldair changes [id number] MIKE REYNOLDS [facility] on [address] [place] [id number] 07/26/2023 10:31:42 07/31/2023 15:13:33 Alcohol dependence 85509868 F10.288 there has been no seizure activity reported. hx seizures with withdrawal witnessed clonic tonic seizurestr eated with ativan and phenobarbi talencoura ged abstinence SUDs referralmo nitor for seizure activityco ntinue thiamine 100 mg qdfolate [address] 666 mg tid Bradycardia 11909113 R00 .1 HR 69Hx of syncope with implantabl e loop recorderSB in acute care with pausescard iology and EPS consulted- ILR interrogat ed, showed no correlatio n of syncope and pauses, no need for PPM. ILR removed.re commending PSG outpatient to r/o RAND- referral paced in [facility] Harmful pa ttern of use of cocaine 71036797 F14.10 refer to SUDsencour aged abstinence provide supportive services /refer to [facility] 75497591 Z59.00 social service director for support and services Asthenia 29451299 R53.1 plan for OTimpaired gait/weakn ess10/11: he is ambulating with steady gait independen tly. Asthma 410070252 J45.99 8 hxnot currently on medication smonitor for resp/clini aldair changes [id number] MIKE REYNOLDS [facility] on [address] [place] [id number] 08/01/2023 09:31:41 08/08/2023 09:26:07 Alcohol dependence 29529784 F10.288 there has been no seizure activity reported. hx seizures with withdrawal witnessed clonic tonic seizurestr eated with ativan and phenobarbi talencoura ged abstinence SUDs referralmo nitor for seizure activityco ntinue thiamine 100 mg qdfolate [address] 666 mg tid Bradycardia 77679585 R00 .1 HR 69Hx of syncope with implantabl e loop recorderSB in acute care with pausescard iology and EPS consulted- ILR interrogat ed, showed no correlatio n of syncope and pauses, no need for PPM. ILR removed.re commending PSG outpatient to r/o RAND- referral paced in [facility] Harmful pa ttern of use of cocaine 35443892 F14.10 refer to SUDsencour aged abstinence provide supportive services /refer to Homeless 77528806 Z59.00 social service director for support and services Asthenia 06242115 R53.1 plan for OTimpaired gait/weakn ess07/26: he is ambulating with steady gait independen tly. Asthma 416507698 J45.99 8 hxnot currently on medication smonitor for resp/clini aldair changes [id number] MIKE REYNOLDS [facility] on [address] [place] [address] 08/04/2023 08:03:49 08/08/2023 11:32:51 Alcohol dependence 44145469 F10.288 08/04: there has been no seizure activity reported. hx seizures with withdrawal witnessed clonic tonic seizurestr eated with ativan and phenobarbi talencoura ged abstinence SUDs referralmo nitor for seizure activityco ntinue thiamine 100 mg qdfolate [address] 666 mg tid Bradycardia 37895957 R00 .1 HR 69Hx of syncope with implantabl e loop recorderSB in acute care with pausescard iology and EPS consulted- ILR interrogat ed, showed no correlatio n of syncope and pauses, no need for PPM. ILR removed.re commending PSG outpatient to r/o RAND- referral paced in [facility] Harmful pa ttern of use of cocaine 51327385 F14.10 refer to SUDsencour aged abstinence provide supportive services /refer to Homeless 85234005 Z59.00 social service director for support and services Asthenia 55804407 R53.1 plan for OTimpaired gait/weakn ess07/26: he is ambulating with steady gait independen tly.08/04: meeting goals with therapy, independen t with care. Asthma 811425493 J45.99 8 hxnot currently on medication smonitor for resp/clini aldair changes [id number] MIKE REYNOLDS [facility] on [address] [place] [id number] 08/10/2023 08:14:16 08/17/2023 15:56:48 Alcohol dependence 36911278 F10.288 hx seizures with withdrawal witnessed clonic tonic seizurestr eated with ativan and phenobarbi talencoura ged abstinence SUDs referralmo nitor for seizure activityco ntinue thiamine 100 mg qdfolate [address] 666 mg tid Bradycardia 20623347 R00 .1 Hx of syncope with implantabl e loop recorderSB in acute care with pausescard iology and EPS consulted- ILR interrogat ed, showed no correlatio n of syncope and pauses, no need for PPM. ILR removed.re commending PSG outpatient to r/o [facility]- referral paced in [facility] Harmful pa ttern of use of cocaine 12523890 F14.10 refer to SUDsencour aged abstinence provide supportive services /refer to [facility] Homeless 53174185 Z59.00 social service director for support and services Asthenia 67467098 R53.1 08/09/2023 : therapy goals met.He is independen t on on unit. Asthma 995835745 J45.99 8 hxnot currently on medication smonitor for resp/clini aldair changes [id number] MIKE REYNOLDS [facility] on [address] [place] [id number] 08/16/2023 07:01:21 08/18/2023 08:46:19 Alcohol dependence 10939975 F10.288 08/16: There has been no reported seizurehx seizures with withdrawal witnessed clonic tonic seizurestr eated with ativan and phenobarbi talencoura ged abstinence SUDs referralmo nitor for seizure activityco ntinue thiamine 100 mg qdfolate [address] 666 mg tid Asthma 885267702 J45.99 8 08/16: Denies any shortness of breath or resp. issuesnot currently on medication smonitor for resp/clini aldair changes [id number] Dayana Sarmiento Lo [facility] on [address] [place] [address] 08/25/2023 10:10:49 08/28/2023 11:33:00 Alcohol dependence 80176298 F10.288 08/16: There has been no reported seizurehx seizures with withdrawal witnessed clonic tonic seizurestr eated with ativan and phenobarbi talencoura ged abstinence SUDs referralmo nitor for seizure activityco ntinue thiamine 100 mg qdfolate [address] 666 mg tid Asthma 076828393 J45.99 8 08/16: Denies any shortness of breath or resp. issuesnot currently on medication smonitor for resp/clini aldair changes Harmful pa ttern of use of cocaine 29138617 F14.10 follow up with outpatient carehas not used during SNF stay Homeless 53719624 Z59.00 discharge to shelter Sinus bradycardia 526347 05 R00.1 resolved, HR 78 today Laboratory test result abnormal 713713349 R89.9 resolved, follow up with outpt PCP next week Health Concerns Section Related Observation LastModified by Organization Detai ls LastModified Time None Recorded Concern Status LastModified by Organization Details LastModified Time None Recorded Advance Directives Directive Y: Payers Insurance Date Sequence Insurance Name Policy Number Policy Hobbs Covered Member ID Hobbs Member ID Guarantor Name 03/21/2024 1 [place] [facility] [id number] [facility] Notes Date Note Type Note Provider Name and Address Organization Details Recorded Time 08/01/2023 text/html ROS as noted in the HPI Seen today for acute rounding visit. Past medical history remarkable for alcohol abuse dependency with withdrawal seizures, syncope with implantable loop recorder in place. Presented to [facility] on 07/08/23 from outside source with both unwitnessed and witnessed seizure; on arrival to ED he had another witnessed tonic clonic seizure associated with post ictal. He was treated with IV ativan and started on phenobarbital protocol. He was admitted for ETOH withdrawal, Rhabdo and and found to have sinus pauses. Evaluated by therapy for weakness, [facility] and [facility]hab. On exam today he is stable, there is no acute nursing concerns. progressing toward therapy goals. MIKE REYNOLDS [address] [facility], [address], [place], [address], [facility] Level[facility] 08/01/2023 14:12:08 08/04/2023 text/html ROS as noted in the HPI Seen today for acute rounding visit. Past medical history remarkable for alcohol abuse dependency with withdrawal seizures, syncope with implantable loop recorder in place. Presented to [facility] on 07/08/23 from outside source with both unwitnessed and witnessed seizure; on arrival to ED he had another witnessed tonic clonic seizure associated with post ictal. He was treated with IV ativan and started on phenobarbital protocol. He was admitted for ETOH withdrawal, Rhabdo and and found to have sinus pauses. Evaluated by therapy for weakness, [facility] and [facility]hab. He continue to be medically stable, he has been working with therapy, as of note he has progressed to independent for adl no adaptive device required. On exam he noted ambulating on unit with steady gait, he tells me that he is ok, there is no acute nursing concerns. MIKE REYNOLDS [address] [facility], [address], [place], [address], [facility] 08/04/2023 13:02:43 08/10/2023 text/html ROS as noted in the HPI Duarte is seen today for acute rounding visit. Past medical history of ETOH abuse with withdrawal seizures, cocaine abuse, asthma.He has been stable, he offers no complaints. There is no acute nursing concerns. MIKE REYNOLDS [address] [facility], [address], [place], [address], [facility] 08/10/2023 10:56:55 08/16/2023 text/html Duarte is seen today for routine rounding FRONT OFFICE HELP 30 day visit. Past medical history of ETOH abuse with withdrawal seizures, cocaine abuse, asthma. Duarte is alert and verbal in NAD. He has been stable seen his last rounding visit, there is no complaints, there is no acute nursing concerns. MIKE REYNOLDS [address] [facility], [address], [place], [address], [facility] 08/16/2023 11:03:33 08/25/2023 text/html ROS as noted in the HPI Duarte is seen today for discharge. Past medical history of ETOH abuse with withdrawal seizures, cocaine abuse, asthma. Duarte is alert and verbal in NAD. He has been stable seen his last rounding visit, there is no complaints, there is no acute nursing concerns. Dayana valle [address] [facility], [address], [place], [address], [facility] 08/25/2023 10:26:05
--- OUTSIDE RECORDS SUMMARY | 2025-07-11 21:56 | XMS_ITS | Encounter Summary ---
Author Organization [facility] Address [address] [place] [address] Phone Care Team Providers Care Speech Pathologist Assistant Name Role Phone Ramin Arnold MD Primary Care Provider [phone] Encounter Details Date Type Department Care Team (Late st Contact Info) Description 11/16/2024 Procedure Pass [facility] [place] [address], [address], [address] [place] [address] Social History Tobacco Use Types Packs/Day Years Used Date Smoking Tobacco: Never Smokeless Tobacco: Never Alcohol Use Standard Drinks/Week Comments Yes 4 (1 standard drink = 0.6 oz pur e alcohol) Education Answer Date Recorded Are you interested in more education? Not on cindy e 02/10/2023 Are you concerned about learning? Not on file 02/10/2023 No 02/10/2023 No 02/10/2023 Food Answer Date Recorded Within the past 6 months we worried whether our food would run out before we got money to buy more. Unable to assess 025 Within the past 6 months the food we bought just didn't last and we didn't have enough money to get more. Unable to assess 11/16/2024 Residential Stability Answer Date Recor ded What is your housing situation today? Unable to assess 11/16/2024 How many times have you moved in the past 12 mon ths? Unable to assess 11/16/2024 Paying for Meds Answer Date Recorded Do you have trouble paying for medicines? Unable to assess 11/16/2024 Paying Utility Bills Answer Date Record ed Do you have trouble paying y our heating or electricity bill? Unable to assess 11/16/2024 Transportation Answer Date Recorded Has the lack of transportati on kept you from medical appointments or from getting medications? Yes 11/16/2024 Digital Access Answer Date Recorded No 11/16/2024 No 11/16/2024 Do you have reliable internet access at home? Un able to assess 11/16/2024 Do you have a device (e.g., phone, tablet, computer) with a working camera? Unable to assess 11/16/2024 Intimate Partner Violence Answer Date R ecorded Are you denied basic needs s uch as food, clothing, or medical care? No 11/16/2024 In the past 12 months have y ou been in a relationship with a person who hurts, threatens, or tries to control you? No 11/16/2024 Are you denied basic needs s uch as food, clothing, or medical care? No 11/16/2024 In the past 12 months have y ou been in a relationship with a person who hurts, threatens, or tries to control you? No 11/16/2024 Sex and Gender Information Value Date Recorded Sex Assigned at Not on file Legal Sex Male 9:14 PM EDT Gender Identity Not on file Sexual Orientation Not on file documented as of this encounter Functional Status * Calculated C-SSRS Risk Score (Lifetime/Recent) Answer Date of Assessment Author No Risk Indicated 11/16/2024 5:00 PM Ju Hines RN * [place] Suicide Severity Rating Scale (Screener/Recent Self-Report) Question Answer Date of Assessment Author 1. Wish to be (Past 1 Month) No 025 5:00 PM Ju Hines, STEFFANY 2. Non-Specific Active Suici jennifer Thoughts (Past 1 Month) No 11/16/2024 5:00 PM Ju Hines, STEFFANY 6. Suicidal Behavior (Lifetime) No 5 5:00 PM Ju Hines, STEFFANY documented as of this encounter Plan of Treatment Not on file documented as of this encounter Visit Diagnoses Not on filedocumented in this encounter Care Teams Speech Pathologist Assistant Relationship Specialty Start Date End Date Ramin Arnold MD PCP - General Family Medicine 05/19/20 documented as of this encounter Additional Source Comments The information contained in this document represents components of the legal health record. It is not the complete legal health record.[facility]
--- OUTSIDE RECORDS SUMMARY | 2025-07-11 21:56 | XMS_ITS | Encounter Summary ---
Author Organization [facility] Address [address] [place] [address] Phone Care Team Providers Care Sql Engineer Name Role Phone Ramin Arnold MD Primary Care Provider [phone] Encounter Details Date Type Department Care Team (Late st Contact Info) Description 11/17/2024 Procedure Pass [facility] [address] [facility] PERIOP DEPT [address] [place] [address] Social History Tobacco Use Types Packs/Day Years [...] on file documented as of this encounter Plan of Treatment Not on file documented as of this encounter Visit Diagnoses Not on filedocumented in this encounter Care Teams Sql Engineer Relationship Specialty Start Date End Date Ramin Arnold MD [email or web address] PCP - General Family Medicine 05/19/20 documented as of this encounter Additional Source Comments The information contained in this document represents components of the legal health record. It is not the complete legal health record.[facility]
--- OUTSIDE RECORDS SUMMARY | 2025-07-11 21:56 | XMS_ITS | Encounter Summary ---
Author Organization [facility] Address [address] [place] [address] Phone Care Team Providers Care Trustee Of Estate Name Role Phone Ramin Arnold MD Primary Care Provider [phone] Encounter Details Date Type Department Care Team (Late st Contact Info) Description 11/16/2024 Ophth Exam [facility] Oph Trauma Main [facility] [address] [place] [address] Laurence Coelho MD [address] [place] [address] [email or web address] Social History Tobacco Use Types Packs/Day Years Used Date Smoking Tobacco: Never Assessed Education Answer Date Recorded Are you interested [...] 11/16/2024 5:00 PM Ju Hines RN * [place] Suicide Severity Rating Scale (Screener/Recent Self-Report) Question Answer Date of Assessment Author 1. Wish to be (Past 1 Month) No 025 5:00 PM Ju Hines RN 2. Non-Specific Active Suici jennifer Thoughts (Past 1 Month) No 11/16/2024 5:00 PM Ju Hines, STEFFANY 6. Suicidal Behavior (Lifetime) No 5:00 PM Ju Hines, STEFFANY documented as of this encounter Plan of Treatment Not on file documented as of this encounter Visit Diagnoses Not on filedocumented in this encounter Care Teams Trustee Of Estate Relationship Specialty Start Date End Date Ramin Arnold MD [email or web address] PCP - General Family Medicine 05/19/20 documented as of this encounter Additional Source Comments The information contained in this document represents components of the legal health record. It is not the complete legal health record.[facility]
--- OUTSIDE RECORDS SUMMARY | 2025-07-11 21:56 | XMS_ITS | Encounter Summary ---
Author Organization [facility] Address [address] [place] [address] Phone Care Team Providers Care Associate Merchant Name Role Phone Ramin Arnold MD Primary Care Provider [phone] Encounter Details Date Type Department Care Team (Late st Contact Info) Description 11/19/2024 Ophth Exam [facility] Oph Trauma Main [place] [address] [place] [address] Laurence Coelho MD [address] [place] [address] [email or web address] Social History Tobacco Use Types [...] on filedocumented in this encounter Care Teams Associate Merchant Relationship Specialty Start Date End Date Ramin Arnold MD [email or web address] PCP - General Family Medicine 05/19/20 documented as of this encounter Additional Source Comments The information contained in this document represents components of the legal health record. It is not the complete legal health record.[facility]
--- OUTSIDE RECORDS SUMMARY | 2025-07-11 21:56 | XMS_ITS | Encounter Summary ---
Author Organization [facility] Address [address] [place] [address] Phone Care Team Providers Care Photoengraving Retoucher Name Role Phone Ramin Arnold MD Primary Care Provider [phone] Encounter Details Date Type Department Care Team ([facility] st Contact Info) Description 11/16/2024 Ophth Exam [facility]DA Consult from [address] [address] Lit Price MD [address] [place] [address] [email or web address] Social History Tobacco Use Types Packs/Day Years [...] 11/16/2024 5:00 PM Ju Hines RN * [place] Suicide Severity Rating Scale (Screener/Recent Self-Report) Question [...] on filedocumented in this encounter Care Teams Photoengraving Retoucher Relationship Specialty Start Date End Date Ramin Arnold MD [email or web address] PCP - General Family Medicine 05/19/20 documented as of this encounter Additional Source Comments The information contained in this document represents components of the legal health record. It is not the complete legal health record.[facility]
--- OUTSIDE RECORDS SUMMARY | 2025-07-11 21:56 | XMS_ITS | Clinical Summary ---
Author Organization [facility] Address [address] [place] [address] Care Team Providers Care Counter Intelligence Technician Name Role Phone Unavailable Primary Care Provider Unavailabl e Social History Tobacco Use Types Packs/Day Years Used Date Smoking Tobacco: Never Assessed Sex and Gender Information Value Date Recorded Sex Assigned at Not on file Legal Sex Male 4:39 AM EST Gender Identity Not on file Sexual Orientation Not on file Plan of Treatment Health Maintenance Due Date Last Done Comments DTaP,Tdap,and Td Vaccines (1 - Tdap) 2004 Hepatitis B Vaccines (1 of 3 - 19+ 3-dose series) 2004 Depression Screening 10/16/2024 COVID-19 Vaccine (1 - 2023-2 5 season) 2025 Influenza Vaccine (#1) 2025 HIB Vaccines Aged Out No longer eligi ble based on patient's age to complete this topic HPV Vaccines Aged Out No longer eligi ble based on patient's age to complete this topic Hepatitis A Vaccines Aged Out No long er eligible based on patient's age to complete this topic IPV Vaccines Aged Out No longer eligi ble based on patient's age to complete this topic MMR Vaccines Aged Out No longer eligi ble based on patient's age to complete this topic Meningococcal ACWY Vaccine Aged Out N o longer eligible based on patient's age to complete this topic Meningococcal B Vaccine Aged Out No l onger eligible based on patient's age to complete this topic Pneumococcal Vaccine: Pediat rics (0 to 5 Years) and At-Risk Patients (6 to 49 Years) Aged Out No longer eligible b ased on patient's age to complete this topic RSV Immunization Patients Un rigo 20 months Aged Out No longer eligible b ased on patient's age to complete this topic Varicella Vaccines Aged Out No longer eligible based on patient's age to complete this topic
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
--- OUTSIDE RECORDS SUMMARY | 2025-07-11 21:57 | XMS_ITS | Encounter Summary ---
Author Organization [facility] Address [address] [place] [address] Phone Care Team Providers Care Director Corporate Compliance Name Role Phone Ramin Arnold MD Primary Care Provider [phone] Encounter Details Date Type Department Care Team (Late st Contact Info) Description 05/21/2020 Transcribe Orders [facility] Specimen Processing [address] [place], [place] [id number] Ramin Arnold MD [address] [place] [address] [address] [place] [address] [email or web address] COVID-19 ruled out (Primary Dx) Social History Tobacco Use Types Packs/Day Years Used Date Smoking Tobacco: Never Assessed Sex and Gender Information Value Date Recorded Sex Assigned at Not on file Legal Sex Male 9:14 PM EDT Gender Identity Not on file Sexual Orientation Not on file documented as of this encounter Plan of Treatment Not on file documented as of this encounter Results * COVID-19 PCR Order (05/21/2020 5:36 PM EDT) Specimen Source NASOPHARYNGEAL SWAB (SHOE REPAIR COBBLER) [facility] COVID Testing Status Sent to [facility] Other 05/21/2020 5:36 PM EDT 05/21/2020 5:47 PM EDT us Ramin Arnold MD BODY FLUIDS AND STOOLS ORDERABLE S Final Result [facility] [address] [place] [address] documented in this encounter Visit Diagnoses Diagnosis COVID-19 ruled out- Primary documented in this encounter Additional Health Concerns Infection Onset Date Last Indicated Resolved Time CoV-Exposed Comment:Recent close contact 05/21/2020 05/21/2020 06/04/2020 1:23 AM EDT CoV-Exposed Comment:Recent close contact 06/04/2020 06/04/2020 06/18/2020 1:24 AM EDT CoV-Exposed Comment:Recent close contact 08/26/2020 08/26/2020 09/09/2020 1:24 AM EST documented as of this encounter Care Teams Director Corporate Compliance Relationship Specialty Start Date End Date Ramin Arnold MD [email or web address] PCP - General Family Medicine 05/19/20 documented as of this encounter Additional Source Comments The information contained in this document represents components of the legal health record. It is not the complete legal health record.[facility]
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
--- NOTE | 2025-07-12 01:00 | PC.NURSE ---
pt was seen yesterday for same, refused to see detox in AM. pt speaking to other patients near him stating I come here especially on rainy nights to sleep. pt has been axox4 ambulatory with steady gait up and down hallway. belongings returned to patient and patient signed discharge papers. pt verbalizes understanding however states he won't be following up with outpatient detox as he does not want this.
[2025-07-12 01:02] VITALS: BP 114/79; PULSE 96; RESP 18; TEMP 36.8; O2SAT 98
== END 2025-07-12 01:10 | disposition home or self-care (01) ==
PROVIDERS: Emergency Provider Emergency Medicine; PCP Internal Medicine
DX: F10.129 Alcohol abuse with intoxication, unspecified (principal); R45.851 Suicidal ideations; Z59.00 Homelessness unspecified
CPT/HCPCS: 99283

== ENCOUNTER 2025-07-12 21:32 | Emergency (ER) | payer MEDICAID, SELFPAY ==
[2025-07-12 21:38] VITALS: BP 122/76; PULSE 103; RESP 18; O2SAT 94; BMI 23.5
--- NOTE | 2025-07-12 21:56 | PC.NURSE ---
Pt was brought in at approximately 2140 via [facility] after self presenting to the police department reporting suicidal ideations. Pt reports that he has been using alcohol and crack/cocaine daily. Pt has presented to [facility] emergency department two other days this week for similar reported concerns. Pt has a hx of seizures. Pt reports current thoughts of SI, no plan. Labs are drawn. Urine is waiting to be collected. Denies auditory, visual or tactile hallucinations. Pt was cooperative with exchange engineer process. Denies any medical concerns at this time. Pt is currently eating a sandwich, no apparent distress.
[2025-07-12 21:59] LABS: MANUAL DIFF FLAG NO
[2025-07-12 22:00] LABS: Hematocrit 33.5 % (42.0-52.0); Hemoglobin 11.8 g/dl (14.0-18.0); Imm Gran Abs Auto 0.01 X10*3/uL (0.00-0.03); Imm Gran Pct Auto 0.3 % (0.0-0.4); Lymphocytes Absolute Auto 1.5 X10*3/uL (1.2-4.9); Mean Corpuscular HGB Conc 35.2 g/dl (31.0-36.0); Mean Corpuscular Hemoglobin 30.8 pg (27.0-33.0); Mean Corpuscular Volume 87.5 fL (80.0-98.0); NRBC Abs Auto 0.000 X10*3/uL (0.0-0.012); NRBC Pct Auto 0.0 /100WBC (0.0-0.2); Platelet Count 128 X10*3/uL (160-400); Red Blood Count 3.83 X10*6/uL (4.60-5.80); White Blood Count 3.1 X10*3/uL (4.8-10.8)
--- OUTSIDE RECORDS SUMMARY | 2025-07-12 22:04 | XMS_ITS | Clinical Summary ---
Author Organization [facility] Address [address] [place] [address] Phone Care Team Providers Care Rush Seater Name Role Phone Ramin Arnold MD Primary Care Provider [phone] Allergies Active Allergy Reactions Criticality Noted Date [...] Advance Directives For more information, please contact: [phone] (9AM - 5PM [facility], Monday-Monday) * Full Code (Latest Code Status on File) Date Activated Date Inactivated Comments 11/16/2024 5:47 PM Question Answer Comments Code Status Confirmed With: Patient * Full Code Date Activated Date Inactivated Comments 11/16/2024 5:45 PM 11/16/2024 5:47 PM Question Answer Comments Code Status Confirmed With: Other (specify below ) Care Teams Rush Seater Relationship Specialty Start Date End Date Ramin Arnold MD [email or web address] PCP - General Family Medicine 05/19/20 Additional Source Comments The information contained in this document represents components of the legal health record. It is not the complete legal health record.[facility]
--- OUTSIDE RECORDS SUMMARY | 2025-07-12 22:04 | XMS_ITS | Encounter Summary ---
Author Organization [facility] Address [address] [place] [address] Phone Care Team Providers Care Paper Pattern Inspector Name Role Phone Ramin Arnold MD Primary Care Provider [phone] Encounter Details Date Type Department Care Team (Late st Contact Info) Description 05/21/2020 Transcribe Orders [facility] Specimen Processing [address] [place], [place] [id number] Ramin Arnold MD [address] [place] [address] [address] [place] [address] [email or web address] COVID-19 ruled out (Primary Dx) Social History [...] 5:36 PM EDT) Specimen Source NASOPHARYNGEAL SWAB (VOYAGE MANAGEMENT SYSTEM OPERATOR) [facility] COVID Testing Status Sent to [facility] Micro Lab [facility] Other 05/21/2020 5:36 PM EDT 05/21/2020 5:47 PM EDT us Ramin Arnold MD BODY FLUIDS AND STOOLS ORDERABLE S Final Result [facility] [address] [place] [address] documented in this encounter Visit Diagnoses Diagnosis COVID-19 ruled out- Primary documented in this encounter Additional Health Concerns Infection Onset Date Last Indicated Resolved Time CoV-Exposed Comment:Recent close contact 05/21/2020 05/21/2020 06/04/2020 1:23 AM EDT CoV-Exposed Comment:Recent close contact 06/04/2020 06/04/2020 06/18/2020 1:24 AM EDT CoV-Exposed Comment:Recent close contact 08/26/2020 08/26/2020 09/09/2020 1:24 AM EST documented as of this encounter Care Teams Paper Pattern Inspector Relationship Specialty Start Date End Date Ramin Arnold MD [email or web address] PCP - General Family Medicine 05/19/20 documented as of this encounter Additional Source Comments The information contained in this document represents components of the legal health record. It is not the complete legal health record.[facility]
--- OUTSIDE RECORDS SUMMARY | 2025-07-12 22:04 | XMS_ITS | Encounter Summary ---
Author Organization [facility] Address [address] [place] [address] Phone Care Team Providers Care Rivet Maker Name Role Phone Ramin Arnold MD Primary Care Provider [phone] Encounter Details Date Type Department Care Team (Late st Contact Info) Description 11/16/2024 Ophth Exam AMANDA Oph Trauma Main [place] [address] [place] [address] Laurence Coelho MD [address] [place] [phone] [email or web address] Social History Tobacco Use Types Packs/Day Years [...] 11/16/2024 5:00 PM Ju Hines RN * [place] Suicide Severity Rating Scale (Screener/Recent Self-Report) Question [...] on filedocumented in this encounter Care Teams Rivet Maker Relationship Specialty Start Date End Date Ramin Arnold MD [email or web address] PCP - General Family Medicine 05/19/20 documented as of this encounter Additional Source Comments The information contained in this document represents components of the legal health record. It is not the complete legal health record.[facility]
--- OUTSIDE RECORDS SUMMARY | 2025-07-12 22:04 | XMS_ITS | Encounter Summary ---
Author Organization [facility] Address [address] [place] [address] Phone Care Team Providers Care Side Sawyer Name Role Phone Ramin Arnold MD Primary Care Provider [phone] Encounter Details Date Type Department Care Team (Late st Contact Info) Description 11/16/2024 Procedure [place] [facility] [place] [facility], [address] [place] [address] Social History Tobacco Use Types Packs/Day Years [...] 11/16/2024 5:00 PM Ju Hines RN * [place] Suicide Severity Rating Scale (Screener/Recent Self-Report) Question [...] on filedocumented in this encounter Care Teams Side Sawyer Relationship Specialty Start Date End Date Ramin Arnold MD PCP - General Family Medicine 05/19/20 documented as of this encounter Additional Source Comments The information contained in this document represents components of the legal health record. It is not the complete legal health record.[facility]
--- OUTSIDE RECORDS SUMMARY | 2025-07-12 22:04 | XMS_ITS | Encounter Summary ---
Author Organization [facility] Address [address] [place] [address] Phone Care Team Providers Care Mine Foreman Name Role Phone Ramin Arnold MD Primary Care Provider [phone] Encounter Details Date Type Department Care Team ([facility] st Contact Info) Description 11/16/2024 Ophth Exam AMANDA Consult from [address] [address] Lit Price MD [address] [place] [address] [email or web address] Social History Tobacco Use Types Packs/Day Years [...] 11/16/2024 5:00 PM Ju Hines RN * [place] Suicide Severity Rating Scale (Screener/Recent Self-Report) Question [...] on filedocumented in this encounter Care Teams Mine Foreman Relationship Specialty Start Date End Date Ramin Arnold MD [email or web address] PCP - General Family Medicine 05/19/20 documented as of this encounter Additional Source Comments The information contained in this document represents components of the legal health record. It is not the complete legal health record.[facility]
--- OUTSIDE RECORDS SUMMARY | 2025-07-12 22:04 | XMS_ITS | Clinical Summary ---
Author Organization [facility] Address [address] [place] [address] Care Team Providers Care Drapery Hand Name Role Phone Unavailable Primary Care Provider [...]
--- OUTSIDE RECORDS SUMMARY | 2025-07-12 22:04 | XMS_ITS | Encounter Summary ---
Author Organization [facility] Address [address] [place] [address] Phone Care Team Providers Care Instrument Checker Name Role Phone Ramin Arnold MD Primary Care Provider [phone] Encounter Details Date Type Department Care Team (Late st Contact Info) Description 11/19/2024 Ophth Exam AMANDA Oph Trauma Main [place] [address] [place] [address] Laurence Coelho MD [address] [place] [phone] [email or web address] Social History Tobacco Use Types Packs/Day [...] on filedocumented in this encounter Care Teams Instrument Checker Relationship Specialty Start Date End Date Ramin Arnold MD [email or web address] PCP - General Family Medicine 05/19/20 documented as of this encounter Additional Source Comments The information contained in this document represents components of the legal health record. It is not the complete legal health record.[facility]
--- OUTSIDE RECORDS SUMMARY | 2025-07-12 22:04 | XMS_ITS | Encounter Summary ---
Author Organization [facility] Address [address] [place] [address] Phone Care Team Providers Care Basting Cleaner Name Role Phone Ramin Arnold MD Primary Care Provider [phone] Encounter Details Date Type Department Care Team (Late st Contact Info) Description 11/17/2024 Procedure Pass [facility]ANDA [address] PERIOP DEPT [address] [place] [address] Social History Tobacco Use Types Packs/Day Years [...] on filedocumented in this encounter Care Teams Basting Cleaner Relationship Specialty Start Date End Date Ramin Arnold MD [email or web address] PCP - General Family Medicine 05/19/20 documented as of this encounter Additional Source Comments The information contained in this document represents components of the legal health record. It is not the complete legal health record.[facility]
[2025-07-12 22:11] LABS: Anion Gap 15 (12-20); Blood Urea Nitrogen 5 mg/dL (9-16); Calcium 9.0 mg/dL (8.4-10.2); Carbon Dioxide 27 mmol/L (22-29); Chloride 108 mmol/L (96-108); Creatinine Clr Calc Pharmacy 100.8; Estimated Glomerular Filt Rate > 60; Potassium 3.6 mmol/L (3.3-5.1); Sodium 146 mmol/L (135-145)
--- NOTE | 2025-07-12 22:18 | PC.NURSE ---
Pt BAL 412. Pt laying on couch in back area, no apparent distress. pt appears unsteady at times when ambulating. md aware.
[2025-07-12 22:21] LABS: Acetaminophen LAB < 3 mcg/mL (<30); Salicylate < 5.0 mg/dL (15-30)
[2025-07-13 00:07] VITALS: BP 92/62; PULSE 84; RESP 18; TEMP 37.1; O2SAT 98
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
--- NOTE | 2025-07-13 07:24 | PC.NURSE ---
Assumed care, report received. Pt is sleeping, breakfast is brought in.
[2025-07-13 08:14] VITALS: BP 106/71; PULSE 98; RESP 14; TEMP 36.3; O2SAT 94
[2025-07-13 09:20] VITALS: BP 106/71; PULSE 98; RESP 14; TEMP 36.3
== END 2025-07-13 09:53 | disposition home or self-care (01) ==
PROVIDERS: Emergency Provider Emergency Medicine Emergency Medical Services; PCP Internal Medicine
DX: F10.129 Alcohol abuse with intoxication, unspecified (principal)
CPT/HCPCS: 36415; 80048; 80143; 80179; 80307; 85025; 99284; S9485

== ENCOUNTER 2025-07-17 20:08 | Emergency (ER) | payer MEDICAID, SELFPAY ==
[2025-07-17 20:12] VITALS: BP 132/80; BP 132/95; PULSE 103; PULSE 118; RESP 18; TEMP 36.6; O2SAT 100; O2SAT 96; BMI 20.5
--- NOTE | 2025-07-17 20:26 | PC.NURSE ---
Pt brought into Pod, changed over with security present. Pt noted to be holding onto shukla and almost falling over when ambulating out of the bathroom. Pt scored as a high fall risk. station installer and repairer notified of fall risk and patient to be moved to main ED.
--- OUTSIDE RECORDS SUMMARY | 2025-07-17 20:43 | XMS_ITS | Encounter Summary ---
Author Organization [facility] Address [address] [place] [address] Phone Care Team Providers Care Production Support Specialist Name Role Phone Ramin Arnold MD Primary Care Provider [phone] Encounter Details Date Type Department Care Team (Late st Contact Info) Description 05/21/2020 Transcribe Orders [facility] Specimen Processing [address] [place], [place] [id number] Ramin Arnold MD [address] [place] [address] [address] [place] [address] [email or web address] COVID-19 ruled out (Primary Dx) Social History [...] 5:36 PM EDT) Specimen Source NASOPHARYNGEAL SWAB (ASH PIT WORKER) [facility] COVID Testing Status [place] [facility] Micro Lab [facility] Other 05/21/2020 5:36 PM EDT 05/21/2020 5:47 PM EDT us Ramin Arnold MD BODY FLUIDS AND STOOLS ORDERABLE S Final Result [facility] [address] [place] [address] documented in this encounter Visit Diagnoses Diagnosis COVID-19 ruled out- Primary documented in this encounter Additional Health Concerns Infection Onset Date Last Indicated Resolved Time CoV-Exposed Comment:Recent close contact 05/21/2020 05/21/2020 06/04/2020 1:23 AM EDT CoV-Exposed Comment:Recent close contact 06/04/2020 06/04/2020 06/18/2020 1:24 AM EDT CoV-Exposed Comment:Recent close contact 08/26/2020 08/26/2020 09/09/2020 1:24 AM EST documented as of this encounter Care Teams Production Support Specialist Relationship Specialty Start Date End Date Ramin Arnold MD [email or web address] PCP - General Family Medicine 05/19/20 documented as of this encounter Additional Source Comments The information contained in this document represents components of the legal health record. It is not the complete legal health record.[facility]
--- OUTSIDE RECORDS SUMMARY | 2025-07-17 20:43 | XMS_ITS | Data Portability ---
Author Organization [facility], Main Office Address [address], [address] [place] [address] Care Team Providers Care Parking Enforcement Technician Name Role Phone [facility] OTHER Assessment Encounter Date [...] Address Organization Details Recorded Time Alcohol dependence 67921219 Active 2019 Riri harman, [facility] 0 10:55:15 Alcohol dependence 62959611 Active 2019 Riri Espinal null, [facility] 0 10:55:21 Sinus bradycardia 87947268 Active 2019 Riri harman, [facility] 0 10:55:22 Asthma 236835499 Active 2019 Riri harman, [facility] 0 10:55:25 Harmful pattern of use of cocaine 35876761 Active 2022 JESSICADOROTA HALEY, [employer] [address] , [address], [place], [address], [facility] 3 17:51:39 Homeless 36975877 Active 2022 JESSICADOROTA HALEY, [facility] [address] [facility], [address], [place], [address], [facility] [employer] 3 18:07:02 Asthenia 37157057 Active 2022 JESSICADOROTA HALEY, [facility] [address] [facility], [address], [place], [address], [facility] [employer] 3 18:07:05 Bradycardia 36986963 Active 2022 JESSICA HALEY, [facility] [address], [address], [place], [address], [facility] [employer] 3 18:07:11 Laboratory test result abnormal 841306048 Active 2022 JESSICADOROTA HALEY, [facility] [address], [address], [place], [address], [facility] [employer] 3 18:07:15 Problem Notes None recorded. Medical Equipment None Reported. Allergies Allergen ID Allergen Name Allergen Category Reaction Reaction Severity Criticality Documentation Date Start Date Code Code System Note Provider Name and Address Organization Details Recorded Time 74463 shellfish derived food,medi cation Not available Not available Not available 05/19/2020 Riri harman, [facility] [employer] 0 08:43:01 Medications Not known to be on any medication Vitals Date Recorded Heart rate Respiratory rate Body temperature Oxygen saturation Oxygen saturation in Arterial blood by Pulse oximetry Systolic And Diastolic Provider Name and Address Organization Details Last Updated DateTime 3 78 /min 18 /min 97.4 [degF] 99 % 99 % 115/67 mm[Hg] Dayana Sarmiento -Kierkla [address], [address], [place], [address], [facility] [employer] 3 10:21:31 Social History Question Answer Notes LastModified by Organizat ion Details LastModified Time Tobacco Smoking Status Current Every Day Smoker 2 a day MIKE REYNOLDS [address], [address], [place], [address], [facility] 07/19/2023 17:16:49 Do You Have An Advance Directive? Yes Information not available 07/19/2023 What Is Your Code Status? Full Code Information not available 07/19/2023 Which Illicit Or Recreational Drugs Have You Used? Crack Cocaine Information not available 07/19/2023 Where Do You Live? Other Homeless Information not available 07/19/2023 Legal Guardian? No Informati on not available 07/19/2023 Do You Have A Medical Power Of Weights And Measures Sealer? No Information not available 07/19/2023 What Was [...] anxious, or unable to sleep at night)? [id number] Information not available 07/19/2023 Family History Relationship [...] 25mcg/0.25 mL dose 2 completed Nicole harman [facility] 10/17/2023 11:43:55 Tdap 2 completed Nicole harman [facility] 01/22/2024 14:21:00 Td (adult), 5 Lf tetanus toxoid, preservative free, adsorbed 7 completed Nicole harman [facility] 01/22/2024 14:21:20 Td (adult), 5 Lf tetanus toxoid, preservative free, adsorbed 8 completed Nicole harman [facility] 01/22/2024 14:21:35 pneumococcal polysaccharide PPV23 8 completed Nicole harman [facility] 01/22/2024 14:21:54 pneumococcal polysaccharide PPV23 6 completed Nicole harman [facility] 01/22/2024 14:22:04 Influenza, adjuvanted, quadrivalent, PF 3 completed Nicole harman [place] [facility] 01/22/2024 14:23:02 Past Encounters Encounter ID Performer Location Encounter Start Date Encounter Closed Date Diagnosis/Indication Diagnosis SNOMED-CT Code Diagnosis ICD10 Code Diagnosis IMO Codes Diagnosis Note [id number] MIKE Chen [facility] on [address] [place] [address] 05/19/2020 08:42:26 05/29/2020 13:18:57 Alcohol dependence 01412173 F10.288 Hx of withdrawal seizuresFo lic acid 1 mg dailyThiam ine 100 mg dailyPT OT eval and treat Sinus bradycardia 655457 05 R00.1 Implanted pvc monitor in placeF/u with cardiology Monitor HR Asthma 070575549 J45.99 8 Monitor respirator y status Liver enzy mes level above reference range 197277615 R74.8 Secondary to heavy ETOH useRepeat and monitor [id number] Lois Multani MD [facility] on [address] [place] [address] 05/20/2020 07:06:00 05/29/2020 14:50:19 Alcohol dependence 18561325 F10.20 thiamine 100 mg dailyfolic acid 1 mg dailysocia l work fu to encourage ongoing support and treatment Asthenia 80920724 R53.1 PT/OTwill monitor Liver enzy mes level above reference range 361855470 R74.8 will monitor Sinus bradycardia 783795 05 R00.1 resolvedwi ll monitor [id number] MIKE Chen [facility] on [address] [place] [address] 05/26/2020 09:30:59 05/29/2020 13:59:21 Alcohol dependence 72429104 F10.288 Hx of withdrawal seizuresFo lic acid 1 mg dailyThiam ine 100 mg dailyNo sxs of withdrawal noted Sinus bradycardia 892684 05 R00.1 Implanted pvc monitor in placeF/u with cardiology Monitor HR-ranges 58-88 Asthma 889477116 J45.99 8 Monitor respirator y statusOn no medication s [id number] MIKE Chen [facility] on [address] [place] [address] 06/12/2020 08:31:05 06/16/2020 10:01:54 Alcohol dependence 83789403 F10.288 Hx of withdrawal seizuresFo lic acid 1 mg dailyThiam ine 100 mg dailyNo signs of withdrawal currently Sinus bradycardia 575772 05 R00.1 Implanted pvc monitor in placeF/u with cardiology Monitor HR Asthma 807101301 J45.99 8 Monitor respirator y status Liver enzy mes level above reference range 387135911 R74.8 Secondary to heavy ETOH useRepeat LFTs 06/15 [id number] Riri Espinal [facility] on [address] [place] [address] 06/16/2020 11:47:30 06/18/2020 11:34:00 Alcohol dependence 23367318 F10.288 Hx of withdrawal seizuresFo lic acid 1 mg dailyThiam ine 100 mg dailyNo signs of withdrawal Encouraged to remain sober Sinus bradycardia 266417 05 R00.1 Implanted pvc monitor in placeRemai ns asymptomat ic F/u with cardiology Asthma 654394980 J45.99 8 No respirator y issues currentlyF /u with PCP Liver enzy mes level above reference range 580959683 R74.8 Secondary to heavy ETOH useNow resolved [id number] JESSICA HALEY [facility] on [address] [place] [address] 07/19/2023 15:26:02 07/27/2023 10:51:11 Laboratory test result abnormal 805682648 R89.9 In acute care rhabdo, hypokalemi a, transamini tis, hypomagnes emia , thrombocyt openia, normocytic , metabolic acidosis , normocytic anemia likely related to etoh abuse,,tx with IVF and supplement al replacemen tmonitor labs Alcohol dependence 70032 003 F10.288 hx seizures with withdrawal witnessed clonic tonic seizurestr eated with ativan and phenobarbi talencoura ged abstinence SUDs referralmo nitor for seizure activityco ntinue thiamine 100 mg qdfolate [address] 666 mg tid Bradycardia 78713337 R00 .1 Hx of syncope with implantabl e loop recorderSB in acute care with pausescard iology and EPS consulted- ILR interrogat ed, showed no correlatio n of syncope and pauses, no need for PPM. ILR removed.re commending PSG outpatient to r/o R[facility]- referral paced in [facility] Harmful pa ttern of use of cocaine 40872482 F14.10 refer to SUDsencour aged abstinence provide supportive services /refer to [facility]eless 00154687 Z59.00 clinical social worker for support and services Asthenia 15834593 R53.1 impaired gait/weakn essPT/OT evalMorse 10 Asthma 439573889 J45.99 8 hxnot currently on medication smonitor for resp/clini aldair changes [id number] Lois Multani MD [facility] on [address] [place] [address] 07/21/2023 05:52:30 07/27/2023 11:40:25 Asthenia 45069875 R53.1 PT/OTwill monitor Alcohol dependence 87841 003 F10.288 thiamine 100 mg dailyfolic acid 1 mg dailyacamp rosate 666 mg tldsocial work fu to encourage ongoing support and treatment Bradycardia 57453804 R00 .1 not associated with syncopewil l monitor History of seizure due to alcohol withdrawal 7051072918 56634 Z86.69 completed withdrawal protocolwi ll monitor [id number] MIKE REYNOLDS [facility] on [address] [place] [address] 07/24/2023 09:10:19 07/31/2023 15:03:51 Alcohol dependence 90177250 F10.288 there has been no seizure activity reported. hx seizures with withdrawal witnessed clonic tonic seizurestr eated with ativan and phenobarbi talencoura ged abstinence SUDs referralmo nitor for seizure activityco ntinue thiamine 100 mg qdfolate [address] 666 mg tid Laboratory test result abnormal 561328783 R89.9 In acute care rhabdo, hypokalemi a, transamini tis, hypomagnes emia , thrombocyt openia, normocytic , metabolic acidosis , normocytic anemia likely related to etoh abuse,,tx with IVF and supplement al replacemen tmonitor labs Bradycardia 51379628 R00 .1 denies any cardiac sx today. apical rate 70 Hx of syncope with implantabl e loop recorderSB in acute care with pausescard iology and EPS consulted- ILR interrogat ed, showed no correlatio n of syncope and pauses, no need for PPM. ILR removed.re commending PSG outpatient to r/o RAND- referral paced in [facility] Harmful pa ttern of use of cocaine 80450815 F14.10 refer to SUDsencour aged abstinence provide supportive services /refer to Homeless 74058964 Z59.00 clinical social worker for support and services Asthenia 10054251 R53.1 plan for OTimpaired gait/weakn ess Pineda 10 Asthma 874796015 J45.99 8 hxnot currently on medication smonitor for resp/clini aldair changes [id number] MIKE REYNOLDS [facility] on [address] [place] [address] 07/26/2023 10:31:42 07/31/2023 15:13:33 Alcohol dependence 23125656 F10.288 there has been no seizure activity reported. hx seizures with withdrawal witnessed clonic tonic seizurestr eated with ativan and phenobarbi talencoura ged abstinence SUDs referralmo nitor for seizure activityco ntinue thiamine 100 mg qdfolate [address] 666 mg tid Bradycardia 86068478 R00 .1 HR 69Hx of syncope with implantabl e loop recorderSB in acute care with pausescard iology and EPS consulted- ILR interrogat ed, showed no correlatio n of syncope and pauses, no need for PPM. ILR removed.re commending PSG outpatient to r/o R[facility]- referral paced in [facility] Harmful pa ttern of use of cocaine 74984481 F14.10 refer to SUDsencour aged abstinence provide supportive services /refer to [facility] 19962380 Z59.00 clinical social worker for support and services Asthenia 80737684 R53.1 plan for OTimpaired gait/weakn ess10/11: he is ambulating with steady gait independen tly. Asthma 479799707 J45.99 8 hxnot currently on medication smonitor for resp/clini aldair changes [id number] MIKE REYNOLDS [facility] on [address] [place] [address] 08/01/2023 09:31:41 08/08/2023 09:26:07 Alcohol dependence 91067209 F10.288 there has been no seizure activity reported. hx seizures with withdrawal witnessed clonic tonic seizurestr eated with ativan and phenobarbi talencoura ged abstinence SUDs referralmo nitor for seizure activityco ntinue thiamine 100 mg qdfolate [address] 666 mg tid Bradycardia 36572197 R00 .1 HR 69Hx of syncope with implantabl e loop recorderSB in acute care with pausescard iology and EPS consulted- ILR interrogat ed, showed no correlatio n of syncope and pauses, no need for PPM. ILR removed.re commending PSG outpatient to r/o R[facility]- referral paced in [facility] Harmful pa ttern of use of cocaine 37333282 F14.10 refer to SUDsencour aged abstinence provide supportive services /refer to Homeless 97162863 Z59.00 clinical social worker for support and services Asthenia 50177187 R53.1 plan for OTimpaired gait/weakn ess07/26: he is ambulating with steady gait independen tly. Asthma 598049332 J45.99 8 hxnot currently on medication smonitor for resp/clini aldair changes [id number] MIKE REYNOLDS [facility] on [address] [place] [address] 08/04/2023 08:03:49 08/08/2023 11:32:51 Alcohol dependence 90770197 F10.288 08/04: there has been no seizure activity reported. hx seizures with withdrawal witnessed clonic tonic seizurestr eated with ativan and phenobarbi talencoura ged abstinence SUDs referralmo nitor for seizure activityco ntinue thiamine 100 mg qdfolate [address] 666 mg tid Bradycardia 28667871 R00 .1 HR 69Hx of syncope with implantabl e loop recorderSB in acute care with pausescard iology and EPS consulted- ILR interrogat ed, showed no correlatio n of syncope and pauses, no need for PPM. ILR removed.re commending PSG outpatient to r/o RAND- referral paced in [facility] Harmful pa ttern of use of cocaine 37832434 F14.10 refer to SUDsencour aged abstinence provide supportive services /refer to Homeless 31878414 Z59.00 clinical social worker for support and services Asthenia 35804802 R53.1 plan for OTimpaired gait/weakn ess07/26: he is ambulating with steady gait independen tly.08/04: meeting goals with therapy, independen t with care. Asthma 172273078 J45.99 8 hxnot currently on medication smonitor for resp/clini aldair changes [id number] MIKE REYNOLDS [facility] on [address] [place] [address] 08/10/2023 08:14:16 08/17/2023 15:56:48 Alcohol dependence 59940089 F10.288 hx seizures with withdrawal witnessed clonic tonic seizurestr eated with ativan and phenobarbi talencoura ged abstinence SUDs referralmo nitor for seizure activityco ntinue thiamine 100 mg qdfolate [address] 666 mg tid Bradycardia 98072520 R00 .1 Hx of syncope with implantabl e loop recorderSB in acute care with pausescard iology and EPS consulted- ILR interrogat ed, showed no correlatio n of syncope and pauses, no need for PPM. ILR removed.re commending PSG outpatient to r/o RAND- referral paced in [facility] Harmful pa ttern of use of cocaine 01264744 F14.10 refer to SUDsencour aged abstinence provide supportive services /refer to [facility] Homeless 90230459 Z59.00 clinical social worker for support and services Asthenia 40785322 R53.1 08/09/2023 : therapy goals met.He is independen t on on unit. Asthma 826675565 J45.99 8 hxnot currently on medication smonitor for resp/clini aldair changes [id number] MIKE REYNOLDS [facility] on [address] [place] [address] 08/16/2023 07:01:21 08/18/2023 08:46:19 Alcohol dependence 96833270 F10.288 08/16: There has been no reported seizurehx seizures with withdrawal witnessed clonic tonic seizurestr eated with ativan and phenobarbi talencoura ged abstinence SUDs referralmo nitor for seizure activityco ntinue thiamine 100 mg qdfolate [address] 666 mg tid Asthma 237713857 J45.99 8 08/16: Denies any shortness of breath or resp. issuesnot currently on medication smonitor for resp/clini aldair changes [id number] Dayana Sarmiento Lo [facility] on [address] [place] [address] 08/25/2023 10:10:49 08/28/2023 11:33:00 Alcohol dependence 33079649 F10.288 08/16: There has been no reported seizurehx seizures with withdrawal witnessed clonic tonic seizurestr eated with ativan and phenobarbi talencoura ged abstinence SUDs referralmo nitor for seizure activityco ntinue thiamine 100 mg qdfolate [address] 666 mg tid Asthma 242034872 J45.99 8 08/16: Denies any shortness of breath or resp. issuesnot currently on medication smonitor for resp/clini aldair changes Harmful pa ttern of use of cocaine 71288697 F14.10 follow up with outpatient carehas not used during SNF stay Homeless 14328785 Z59.00 discharge to longterm Sinus bradycardia 680731 05 R00.1 resolved, HR 78 today Laboratory test result abnormal 387819507 R89.9 resolved, follow up with outpt PCP next week Health Concerns Section Related Observation LastModified by Organization Detai ls LastModified Time None Recorded Concern Status LastModified by Organization Details LastModified Time None Recorded Advance Directives Directive Y: Payers Insurance Date Sequence Insurance Name Policy Number Policy Hobbs Covered Member ID Hobbs Member ID Guarantor Name 03/21/2024 1 [place] [facility] [id number] [facility] Notes Date Note Type Note Provider Name and Address Organization Details Recorded Time 08/01/2023 text/html ROS as noted in the HPI Seen today for acute rounding visit. Past medical history remarkable for alcohol abuse dependency with withdrawal seizures, syncope with implantable loop recorder in place. Presented to [facility] on 07/08/23 from outside source with both unwitnessed and witnessed seizure; on arrival to ED he had another witnessed tonic clonic seizure associated with post ictal. He was treated with IV ativan and started on phenobarbital protocol. He was admitted for ETOH withdrawal, Rhabdo and and found to have sinus pauses. Evaluated by therapy for weakness, [facility] care and rehab. On exam today he is stable, there is no acute nursing concerns. progressing toward therapy goals. MIKE REYNOLDS [address] [facility], [address], [place], [address], [facility] 08/01/2023 14:12:08 08/04/2023 text/html ROS as noted in the HPI Seen today for acute rounding visit. Past medical history remarkable for alcohol abuse dependency with withdrawal seizures, syncope with implantable loop recorder in place. Presented to [facility] on 07/08/23 from outside source with both unwitnessed and witnessed seizure; on arrival to ED he had another witnessed tonic clonic seizure associated with post ictal. He was treated with IV ativan and started on phenobarbital protocol. He was admitted for ETOH withdrawal, Rhabdo and and found to have sinus pauses. Evaluated by therapy for weakness, admitted [facility] care and rehab. He continue to be medically stable, he has been working with therapy, as of note he has progressed to independent for adl no adaptive device required. On exam he noted ambulating on unit with steady gait, he tells me that he is ok, there is no acute nursing concerns. MIKE REYNOLDS [address] [facility] [address], [address], [place], [address], [facility] 08/04/2023 13:02:43 08/10/2023 text/html ROS as noted in the HPI Duarte is seen today for acute rounding visit. Past medical history of ETOH abuse with withdrawal seizures, cocaine abuse, asthma.He has been stable, he offers no complaints. There is no acute nursing concerns. 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 Past medical history of ETOH abuse with withdrawal seizures, cocaine abuse, asthma. Duarte is alert and verbal in NAD. He has been stable seen his last rounding visit, there is no complaints, there is no acute nursing concerns. MIKE REYNOLDS [address] [facility], [address], [place], [address], [facility] 08/16/2023 11:03:33 08/25/2023 text/html ROS as noted in the HPI Duarte is seen today for discharge. Past medical history of ETOH abuse with withdrawal seizures, cocaine abuse, asthma. Duarte is alert and verbal in NAD. He has been stable seen his last rounding visit, there is no complaints, there is no acute nursing concerns. Dayana valle [address] [facility] [address], [address], [place], [address], [facility] 08/25/2023 10:26:05
--- OUTSIDE RECORDS SUMMARY | 2025-07-17 20:43 | XMS_ITS | Encounter Summary ---
Author Organization [facility] Address [address] [place] [address] Phone Care Team Providers Care Felt Cementer Name Role Phone Ramin Arnold MD Primary Care Provider [phone] Encounter Details Date Type Department Care Team ([facility] st Contact Info) Description 11/16/2024 Ophth Exam AMANDA Consult from [address] [address] Lit Price MD [address] [place] [address] [email or web address] Social History Tobacco Use Types Packs/Day Years [...] 11/16/2024 5:00 PM Ju Hines RN * [place] Suicide Severity Rating Scale (Screener/Recent Self-Report) Question [...] on filedocumented in this encounter Care Teams Felt Cementer Relationship Specialty Start Date End Date Ramin Arnold MD [email or web address] PCP - General Family Medicine 05/19/20 documented as of this encounter Additional Source Comments The information contained in this document represents components of the legal health record. It is not the complete legal health record.[facility]
--- OUTSIDE RECORDS SUMMARY | 2025-07-17 20:43 | XMS_ITS | Encounter Summary ---
Author Organization [facility] Address [address] [place] [address] Phone Care Team Providers Care Credit Officer Name Role Phone Ramin Arnold MD Primary Care Provider [phone] Encounter Details Date Type Department Care Team (Late st Contact Info) Description 11/16/2024 Procedure Pass [facility], [address] [facility], [address], [address] [place] [address] Social History Tobacco Use Types Packs/Day Years [...] 11/16/2024 5:00 PM Ju Hines RN * [place] Suicide Severity Rating Scale (Screener/Recent Self-Report) Question [...] on filedocumented in this encounter Care Teams Credit Officer Relationship Specialty Start Date End Date Ramin Arnold MD PCP - General Family Medicine 05/19/20 documented as of this encounter Additional Source Comments The information contained in this document represents components of the legal health record. It is not the complete legal health record.[facility]
--- OUTSIDE RECORDS SUMMARY | 2025-07-17 20:43 | XMS_ITS | Encounter Summary ---
Author Organization [facility] Address [address] [place] [address] Phone Care Team Providers Care Thermodynamicist Name Role Phone Ramin Arnold MD Primary Care Provider [phone] Encounter Details Date Type Department Care Team (Late st Contact Info) Description 11/19/2024 Ophth Exam AMANDA Oph Trauma Main [place] [address] [place] [address] Laurence Coelho MD [address] [place] [phone] [email or web address] Social History Tobacco Use Types Packs/Day [...] on filedocumented in this encounter Care Teams Thermodynamicist Relationship Specialty Start Date End Date Ramin Arnold MD [email or web address] PCP - General Family Medicine 05/19/20 documented as of this encounter Additional Source Comments The information contained in this document represents components of the legal health record. It is not the complete legal health record.[facility]
--- OUTSIDE RECORDS SUMMARY | 2025-07-17 20:43 | XMS_ITS | Clinical Summary ---
Author Organization [facility] it Address [address] [place] [address] Care Team Providers Care Logistics Assistant Name Role Phone Unavailable Primary Care Provider [...] of 3 - 19+ 3-dose series) 2004 HPV Vaccines (1 - 3-dose SCD M series) 2012 Depression Screening 10/16/2024 COVID-19 Vaccine (1 - 2023-2 5 season) 2025 Influenza Vaccine (#1) 2025 RSV Immunization Adult Patie nts (1 - 1-dose 75+ series) 2060 HIB Vaccines Aged Out No longer eligi [...]
--- OUTSIDE RECORDS SUMMARY | 2025-07-17 20:43 | XMS_ITS | Encounter Summary ---
Author Organization [facility] Address [address] [place] [address] Phone Care Team Providers Care Greenskeeper Head Name Role Phone Ramin Arnold MD Primary Care Provider [phone] Encounter Details Date Type Department Care Team (Late st Contact Info) Description 11/17/2024 Procedure Pass AMANDA 6TH FL PERIOP DEPT [address] [place] [address] Social History Tobacco Use Types Packs/Day Years [...] on filedocumented in this encounter Care Teams Greenskeeper Head Relationship Specialty Start Date End Date Ramin Arnold MD [email or web address] PCP - General Family Medicine 05/19/20 documented as of this encounter Additional Source Comments The information contained in this document represents components of the legal health record. It is not the complete legal health record.[facility]
--- OUTSIDE RECORDS SUMMARY | 2025-07-17 20:43 | XMS_ITS | Encounter Summary ---
Author Organization [facility] Address [address] [place] [phone] Phone Care Team Providers Care Can Dragger Name Role Phone Ramin Arnold MD Primary Care Provider Encounter Details Date Type Department Care Team (Late st Contact Info) Description 11/16/2024 Ophth Exam AMANDA Oph Trauma Main [place] [address] [place] [address] Laurence Coelho MD [address] [place] [phone] [email or web address] Social History Tobacco Use Types Packs/Day [...] 11/16/2024 5:00 PM Ju Hines RN * [place] Suicide Severity Rating Scale (Screener/Recent Self-Report) Question [...] on filedocumented in this encounter Care Teams Can Dragger Relationship Specialty Start Date End Date Ramin Arnold MD [email or web address] PCP - General Family Medicine 05/19/20 documented as of this encounter Additional Source Comments The information contained in this document represents components of the legal health record. It is not the complete legal health record.[facility]
--- OUTSIDE RECORDS SUMMARY | 2025-07-17 20:44 | XMS_ITS | Clinical Summary ---
Author Organization [facility] Address [address] [place] [address] Phone Care Team Providers Care Bridal Stylist Sales Consultant Name Role Phone Ramin Arnold MD Primary Care Provider [phone] Allergies Active Allergy Reactions Criticality Noted Date [...] Advance Directives For more information, please contact: [phone] (9AM - 5PM Sil/[facility], Monday-Monday) * Full Code (Latest Code Status on File) Date Activated Date Inactivated Comments 11/16/2024 5:47 PM Question Answer Comments Code Status Confirmed With: Patient * Full Code Date Activated Date Inactivated Comments 11/16/2024 5:45 PM 11/16/2024 5:47 PM Question Answer Comments Code Status Confirmed With: Other (specify below ) Care Teams Bridal Stylist Sales Consultant Relationship Specialty Start Date End Date Ramin Arnold MD [email or web address] PCP - General Family Medicine 05/19/20 Additional Source Comments The information contained in this document represents components of the legal health record. It is not the complete legal health record.[facility]
[2025-07-17 20:56] LABS: Hematocrit 32.4 % (42.0-52.0); Hemoglobin 11.2 g/dl (14.0-18.0); Imm Gran Abs Auto 0.01 X10*3/uL (0.00-0.03); Imm Gran Pct Auto 0.4 % (0.0-0.4); Lymphocytes Absolute Auto 1.3 X10*3/uL (1.2-4.9); MANUAL DIFF FLAG SCAN; Mean Corpuscular HGB Conc 34.6 g/dl (31.0-36.0); Mean Corpuscular Hemoglobin 30.5 pg (27.0-33.0); Mean Corpuscular Volume 88.3 fL (80.0-98.0); NRBC Abs Auto 0.000 X10*3/uL (0.0-0.012); NRBC Pct Auto 0.0 /100WBC (0.0-0.2); Red Blood Count 3.67 X10*6/uL (4.60-5.80); SCAN SMEAR FLAG 1; White Blood Count 2.7 X10*3/uL (4.8-10.8)
--- NOTE | 2025-07-17 20:56 | PC.NURSE ---
at this time this RN witnessed pt climbing out of hospital stretcher, when asked if pt needed to go to the bathroom or was in need of something he stated I don't want to be here this RN educated the pt that all other rooms are currently in use and he is pending blood work results. Pt continued to walk down the hallway stating he doesn't want to be in that area, he wants to be somewhere quieter, security called for safety, pt redirected back to the hospital stretcher, given warm blanket and pillow for comfort, sandwich and drink provided, sitter at the bedside. Pt was steady on his feet.
[2025-07-17 20:59] LABS: Platelet Count 86 X10*3/uL (160-400)
[2025-07-17 21:04] LABS: Anion Gap 14 (12-20); Blood Urea Nitrogen 7 mg/dL (9-16); Calcium 8.5 mg/dL (8.4-10.2); Carbon Dioxide 27 mmol/L (22-29); Chloride 108 mmol/L (96-108); Creatinine Clr Calc Pharmacy 85.6; Estimated Glomerular Filt Rate > 60; Potassium 3.6 mmol/L (3.3-5.1); Sodium 145 mmol/L (135-145)
[2025-07-17 21:57] VITALS: BP 106/57; PULSE 85; RESP 16; O2SAT 94
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
[2025-07-18] VITALS: BP 99/54; PULSE 64; RESP 18; O2SAT 95
[2025-07-18 04:00] VITALS: BP 102/60; PULSE 90; RESP 15; TEMP 36.8; O2SAT 97
[2025-07-18 06:00] VITALS: BP 100/64; PULSE 95; RESP 15; TEMP 36.8; O2SAT 96
--- NOTE | 2025-07-18 07:19 | MHC.EDTECH ---
Urine cup provided to patient upon his entering the pod. Oriented patient to the pod and the bathrooms and explained that we required a urine sample. Patient stated unable to provde sample at this time. Will attempt again. Rn aware.
--- NOTE | 2025-07-18 07:34 | PC.NURSE ---
Assumed care of patient at 0645, patient appears to be in no apparent distress this am, calm and cooperative, resting in bed, respirations even and unlabored. Continue plan of care for CARE team [place]
[2025-07-18 09:56] LABS: Appearance Urine Clear; Glucose Urine UA Negative (Negative); PH 5.5 (5.0-9.0); Specific Gravity - Urine 1.025 (1.005-1.025)
[2025-07-18 10:05] LABS: Cannabinoid Screen Urine Not Detected (Not Detect)
[2025-07-18 13:38] VITALS: BP 139/92; PULSE 80; RESP 20; TEMP 36.8; O2SAT 95
--- NOTE | 2025-07-18 13:47 | MHC.CARE ---
Called [facility], they advised CARE Team that they will be reviewing pt's referral and will call back.
--- NOTE | 2025-07-18 15:13 | MHC.CARE ---
Pt declined detox placement at [facility], Pt will be discharged and Lyfted to [facility] today for additional support. Pt is cleared by the CARE team and is ready for discharge.
[2025-07-18 15:27] VITALS: BP 139/92; PULSE 80; RESP 20; TEMP 36.8; O2SAT 95
== END 2025-07-18 16:01 | disposition home or self-care (01) ==
PROVIDERS: Physician Assistant; Emergency Provider Emergency Medicine
DX: F10.129 Alcohol abuse with intoxication, unspecified (principal); F14.10 Cocaine abuse, uncomplicated; R45.851 Suicidal ideations
CPT/HCPCS: 36415; 80048; 80307; 81003; 85025; 99285; S9485

== ENCOUNTER 2025-07-18 22:32 | Emergency (ER) | payer MEDICAID, SELFPAY ==
--- NOTE | 2025-07-18 22:42 | ECG_ITS ---
Test Reason : DRUG USE Blood Pressure : */* mmHG Vent. Rate : 97 BPM Atrial Rate : 97 BPM P-R Int : 160 ms QRS Dur : 90 ms QT Int : 338 ms P-R-T Axes : 36 18 26 degrees QTcB Int : 429 ms Normal sinus rhythm Normal ECG When compared with ECG of 15-May-2025 21:31, Vent. rate has increased by 47 bpm Nonspecific T wave abnormality now evident in Inferior leads Referred By: Laurel Uriarte Electronically Signed By: ANU ROBLES
[2025-07-18 23:16] VITALS: BP 132/78; PULSE 97; RESP 16; TEMP 36.8; O2SAT 95; BMI 25.1
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
[2025-07-19] VITALS (7 sets, daily range): BP systolic 101–142; BP diastolic 59–96; PULSE 69–103; RESP 15–18; TEMP 36.5–36.9; O2SAT 94–100
--- NOTE | 2025-07-19 00:32 | PC.NURSE ---
this nurse asked if he is having thoughts of killing himself. patient initially appeared frustrated but behavior calm throughout rest of interaction, wants to know why staff ask him so much. nurse deescalated. patient then asked again with patient replying yes, by overdosing on medication and alcohol. denies HI. Uriarte informed verbally
[2025-07-19 00:44] LABS: Cannabinoid Screen Urine Not Detected (Not Detect)
[2025-07-19 00:48] LABS: Acetaminophen LAB < 3 mcg/mL (<30); Anion Gap 14 (12-20); Blood Urea Nitrogen 5 mg/dL (9-16); Calcium 8.6 mg/dL (8.4-10.2); Carbon Dioxide 23 mmol/L (22-29); Chloride 107 mmol/L (96-108); Creatinine Clr Calc Pharmacy 166.4; Estimated Glomerular Filt Rate > 60; Potassium 2.8 mmol/L (3.3-5.1); Salicylate < 5.0 mg/dL (15-30); Sodium 141 mmol/L (135-145)
--- NOTE | 2025-07-19 00:52 | PC.NURSE ---
no CP/palpitations/SOB/symptoms
[2025-07-19 00:55] LABS: Hematocrit 33.0 % (42.0-52.0); Hemoglobin 11.2 g/dl (14.0-18.0); Imm Gran Abs Auto 0.01 X10*3/uL (0.00-0.03); Imm Gran Pct Auto 0.4 % (0.0-0.4); Lymphocytes Absolute Auto 1.2 X10*3/uL (1.2-4.9); MANUAL DIFF FLAG SCAN; Mean Corpuscular HGB Conc 33.9 g/dl (31.0-36.0); Mean Corpuscular Hemoglobin 30.4 pg (27.0-33.0); Mean Corpuscular Volume 89.7 fL (80.0-98.0); NRBC Abs Auto 0.000 X10*3/uL (0.0-0.012); NRBC Pct Auto 0.0 /100WBC (0.0-0.2); Red Blood Count 3.68 X10*6/uL (4.60-5.80); SCAN SMEAR FLAG 1; White Blood Count 2.6 X10*3/uL (4.8-10.8)
--- NOTE | 2025-07-19 01:03 | PC.NURSE ---
per MD, plan for repeat chemistry after infusions complete
[2025-07-19 01:12] LABS: Magnesium 1.8 mg/dL (1.6-2.6)
[2025-07-19 01:19] LABS: Platelet Count 69 X10*3/uL (160-400)
--- NOTE | 2025-07-19 01:22 | PC.NURSE ---
Addendum entered by Phoenix Silver RN 07/19/25 01:26: verbally reported face to face to Breanna JETER Addendum entered by Phoenix Silver RN 07/19/25 01:22: put on tele, charted vitals, pt endorses occasional flutter feeling in chest but nothing at present. ST low 100s no ectopy. PCT Aicha sitter in place Original Note: willingly, calmly brought to ED6
[2025-07-19] MEDS: Magnesium Sulfate/H2O 2 GM/50 ML PIGGYBACK IV (01:32)
[2025-07-19] MEDS: Potassium Chloride Packet 20 MEQ PACKET 40 MEQ PO (01:32)
[2025-07-19] MEDS: Potassium Chloride/H20 10 MEQ/100 ML PIGGYBACK 100 MEQ IV ×2 (01:32→03:13)
[2025-07-19 05:25] LABS: Anion Gap 14 (12-20); Blood Urea Nitrogen 6 mg/dL (9-16); Calcium 8.4 mg/dL (8.4-10.2); Carbon Dioxide 25 mmol/L (22-29); Chloride 108 mmol/L (96-108); Creatinine Clr Calc Pharmacy 148.7; Estimated Glomerular Filt Rate > 60; Potassium 3.4 mmol/L (3.3-5.1); Sodium 144 mmol/L (135-145)
--- OUTSIDE RECORDS SUMMARY | 2025-07-19 05:53 | XMS_ITS | Encounter Summary ---
Author Organization [facility] Address [address] [place] [address] Phone Care Team Providers Care Podiatry Teacher Name Role Phone Ramin Arnold MD Primary Care Provider Encounter Details Date Type Department Care Team (Late st Contact Info) Description 11/17/2024 Procedure Pass [facility] 6TH FL PERIOP DEPT [address] [place] [address] Social History Tobacco Use Types Packs/Day Years [...] on filedocumented in this encounter Care Teams Podiatry Teacher Relationship Specialty Start Date End Date Ramin Arnold MD [email or web address] PCP - General Family Medicine 05/19/20 documented as of this encounter Additional Source Comments The information contained in this document represents components of the legal health record. It is not the complete legal health record.[facility]
--- OUTSIDE RECORDS SUMMARY | 2025-07-19 05:53 | XMS_ITS | Encounter Summary ---
Author Organization [facility] Address [address] [place] [address] Phone Care Team Providers Care Technical Publications Manager Name Role Phone Ramin Arnold MD Primary Care Provider Encounter Details Date Type Department Care Team (Late st Contact Info) Description 05/21/2020 Transcribe Orders [facility] Specimen Processing [address] [place], [place] [id number] Ramin Arnold MD [address] [place] [address] [address], [address] [place] [address] [email or web address] COVID-19 ruled out (Primary Dx) Social History [...] 5:36 PM EDT) Specimen Source NASOPHARYNGEAL SWAB (MANAGER CCU) [facility] COVID Testing Status Sent to [facility] Micro Lab [facility] Other 05/21/2020 5:36 PM EDT 05/21/2020 5:47 PM EDT us Ramin Arnold MD BODY FLUIDS AND STOOLS ORDERABLE S Final Result [facility] [address] [place] [address] documented in this encounter Visit Diagnoses Diagnosis COVID-19 ruled out- Primary documented in this encounter Additional Health Concerns Infection Onset Date Last Indicated Resolved Time CoV-Exposed Comment:Recent close contact 05/21/2020 05/21/2020 06/04/2020 1:23 AM EDT CoV-Exposed Comment:Recent close contact 06/04/2020 06/04/2020 06/18/2020 1:24 AM EDT CoV-Exposed Comment:Recent close contact 08/26/2020 08/26/2020 09/09/2020 1:24 AM EST documented as of this encounter Care Teams Technical Publications Manager Relationship Specialty Start Date End Date Ramin Arnold MD [email or web address] PCP - General Family Medicine 05/19/20 documented as of this encounter Additional Source Comments The information contained in this document represents components of the legal health record. It is not the complete legal health record.[facility]
--- OUTSIDE RECORDS SUMMARY | 2025-07-19 05:53 | XMS_ITS | Encounter Summary ---
Author Organization [facility] Address [address] [place] [address] Phone Care Team Providers Care Social Contact Worker Name Role Phone Ramin Arnold MD Primary Care Provider [phone] Encounter Details Date Type Department Care Team (Late st Contact Info) Description 11/16/2024 Ophth Exam [facility]ANDA Oph Trauma Main [place] [address] [place] [address] Laurence Coelho MD [address] [place] [address] [email or web address] Social History Tobacco Use Types [...] 11/16/2024 5:00 PM Ju Hines RN * [place] Suicide Severity Rating Scale (Screener/Recent Self-Report) Question [...] on filedocumented in this encounter Care Teams Social Contact Worker Relationship Specialty Start Date End Date Ramin Arnold MD [email or web address] PCP - General Family Medicine 05/19/20 documented as of this encounter Additional Source Comments The information contained in this document represents components of the legal health record. It is not the complete legal health record.[facility]
--- OUTSIDE RECORDS SUMMARY | 2025-07-19 05:53 | XMS_ITS | Encounter Summary ---
Author Organization [facility] Address [address] [place] [address] Phone Care Team Providers Care Joggle Press Operator Name Role Phone Rmain Arnold MD Primary Care Provider [phone] Encounter Details Date Type Department Care Team ([facility] st Contact Info) Description 11/16/2024 Ophth Exam AMANDA Consult from [address] [address] Lit Price MD [address] [place] [address] [email or web address] Social History Tobacco Use Types Packs/Day Years [...] 11/16/2024 5:00 PM Ju Hines RN * [place] Suicide Severity Rating Scale (Screener/Recent Self-Report) Question [...] on filedocumented in this encounter Care Teams Joggle Press Operator Relationship Specialty Start Date End Date Ramin Arnold MD [email or web address] PCP - General Family Medicine 05/19/20 documented as of this encounter Additional Source Comments The information contained in this document represents components of the legal health record. It is not the complete legal health record.[facility]
--- OUTSIDE RECORDS SUMMARY | 2025-07-19 05:53 | XMS_ITS | Clinical Summary ---
Author Organization [facility] Address [address] [place] [address] Phone Care Team Providers Care Software Engineering Manager Name Role Phone Ramin Arnold MD Primary Care Provider [phone] Allergies Active Allergy Reactions Criticality Noted Date [...] Advance Directives For more information, please contact: [phone] (9AM - 5PM Sil/[facility], Monday-Monday) * Full Code (Latest Code Status on File) Date Activated Date Inactivated Comments 11/16/2024 5:47 PM Question Answer Comments Code Status Confirmed With: Patient * Full Code Date Activated Date Inactivated Comments 11/16/2024 5:45 PM 11/16/2024 5:47 PM Question Answer Comments Code Status Confirmed With: Other (specify below ) Care Teams Software Engineering Manager Relationship Specialty Start Date End Date Ramin Arnold MD [email or web address] PCP - General Family Medicine 05/19/20 Additional Source Comments The information contained in this document represents components of the legal health record. It is not the complete legal health record.[facility]
--- OUTSIDE RECORDS SUMMARY | 2025-07-19 05:53 | XMS_ITS | Encounter Summary ---
Author Organization [facility] Address [address] [place] [address] Phone Care Team Providers Care Named Account Executive Name Role Phone Ramin Arnold MD Primary Care Provider Encounter Details Date Type Department Care Team (Late st Contact Info) Description 11/16/2024 Procedure Pass [facility] [facility], [address] [place] [address] Social History Tobacco Use Types Packs/Day Years [...] 11/16/2024 5:00 PM Ju Hines RN * [place] Suicide Severity Rating Scale (Screener/Recent Self-Report) Question [...] on filedocumented in this encounter Care Teams Named Account Executive Relationship Specialty Start Date End Date Ramin Arnold MD PCP - General Family Medicine 05/19/20 documented as of this encounter Additional Source Comments The information contained in this document represents components of the legal health record. It is not the complete legal health record.[facility]
--- OUTSIDE RECORDS SUMMARY | 2025-07-19 05:53 | XMS_ITS | Encounter Summary ---
Author Organization [facility] Address [address] [place] [address] Phone Care Team Providers Care Child Welfare Counselor Name Role Phone Ramin Arnold MD Primary Care Provider [phone] Encounter Details Date Type Department Care Team (Late st Contact Info) Description 11/19/2024 Ophth Exam [facility] Oph Trauma Main [place] [address] [place] [address] Laurence Coelho MD [address] [place] [address] [email or web address] Social History Tobacco Use Types [...] on filedocumented in this encounter Care Teams Child Welfare Counselor Relationship Specialty Start Date End Date Ramin Arnold MD [email or web address] PCP - General Family Medicine 05/19/20 documented as of this encounter Additional Source Comments The information contained in this document represents components of the legal health record. It is not the complete legal health record.[facility]
--- OUTSIDE RECORDS SUMMARY | 2025-07-19 05:53 | XMS_ITS | Clinical Summary ---
Author Organization [facility] it Address [address] [place] [address] Care Team Providers Care Maintenance Specialist Name Role Phone Unavailable Primary Care Provider [...]
--- NOTE | 2025-07-19 07:40 | PC.NURSE ---
Assumed care of patient at 0645, patient appears to be in no apparent distress this am, resting in bed. Continue plan of care for CARE team [place]
[2025-07-19 07:55] LABS: Appearance Urine Clear; Glucose Urine UA Negative (Negative); PH 6.5 (5.0-9.0); Specific Gravity - Urine <= 1.005 (1.005-1.025)
--- NOTE | 2025-07-19 14:28 | PHA.MEDREC ---
Pharmacy Consult ? Medication Reconciliation Pharmacy has completed the medication reconciliation. Reviewed med rec done by nursing. no home meds confirmed with claims, medical record, and pdmp.
--- NOTE | 2025-07-19 15:52 | MHC.CARE ---
patient declined Ty, agreed for referrals to be sent to [facility] for ATS bedsearch.
--- NOTE | 2025-07-19 16:16 | PC.NURSE ---
It reporting feeling increasing alcohol withdrawal symptoms. CIWA of 11. MD contacted, pt medicated per MAR
--- NOTE | 2025-07-19 18:56 | PC.NURSE ---
Assumed care of patient at this time, patient is resting in bed, eyes closed, RR 18, symmetrical chest wall rise and fall noted, no s/s of apparent distress observed.
--- NOTE | 2025-07-19 20:28 | PC.NURSE ---
VICTOR HUGOWA score 8. Dr. Uriarte notified.
--- NOTE | 2025-07-19 22:35 | PC.NURSE ---
CIWA score 9, ED provider Canales notified. Patient medicated with Valium 5 mg PO per DEC.
--- NOTE | 2025-07-20 00:08 | PC.NURSE ---
Patient currently sleeping comfortably in bed, RR 14, symmetrical chest wall rise and fall noted, no s/s of apparent distress note.
[2025-07-20 06:10] VITALS: BP 143/86; PULSE 71; RESP 17; TEMP 36.6; O2SAT 96
--- NOTE | 2025-07-20 07:41 | PC.NURSE ---
Assumed care of patient at 0645, patient appears to be in no apparent distress this am, resting in bed, respirations even and unlabored. Continue plan of care for detox bedsearch
--- NOTE | 2025-07-20 10:53 | MHC.CARE ---
Addendum entered by Riri Hung MA 07/20/25 11:45: Please disregard previous note as it was written in error. Patient is able to get treatment at [facility]. Original Note: [facility] called back and reports patient is on their do not readmit ever lists .
[2025-07-20 11:27] VITALS: BP 126/88; PULSE 84; RESP 14; TEMP 37.2; O2SAT 99
--- NOTE | 2025-07-20 11:52 | MHC.CARE ---
[facility] called however, information was given on another patient who was also referred to them and they declined. [facility] reported wrong patient name and patient Duarte Bailon was discharge to [facility]. Clinician attempted to call pt however no phone number is listed. Clinician called [facility] as patient was discharged there and informed them patient was accepted for phone intake and to call [facility] if patient arrives there.
== END 2025-07-20 11:38 | disposition home or self-care (01) ==
PROVIDERS: Emergency Provider Emergency Medicine Emergency Medical Services
DX: F19.20 Other psychoactive substance dependence, uncomplicated (principal); R45.851 Suicidal ideations; F10.20 Alcohol dependence, uncomplicated
CPT/HCPCS: 36415; 80048; 80143; 80179; 80307; 81003; 83735; 85025; 93005; 96365; 99285; J3475; J3480; S9485

== ENCOUNTER → 2025-07-18 22:42 | Outpatient (BNV) | payer MEDICAID, SELFPAY | PROVIDERS: Emergency Provider Emergency Medicine Emergency Medical Services; Visit Provider Internal Medicine | DX: F14.90 Cocaine use, unspecified, uncomplicated (principal) | CPT/HCPCS: 93010 ==

== ENCOUNTER 2025-07-28 18:15 | Emergency (ER) | payer MEDICAID, SELFPAY ==
--- NOTE | ~2025-07-28 | CT_ITS ---
CLINICAL HISTORY: Fell while he was drunk CT cervical spine without contrast Comparison: CT/SR - CT CERVICAL SPINE WO IV CON - 05/25/25 20:59 EDT Findings: Vertebral alignment is within normal limits. No significant degenerative change. No acute fractures or dislocations. Visualized intracranial contents are unremarkable. No cervical fluid collections or masses. Lung apices are clear. IMPRESSION: No acute findings. This document has been electronically signed by: Christopher Bonner MD on 07/28/2025 22:14:32
--- NOTE | ~2025-07-28 | CT_ITS ---
CLINICAL HISTORY: Abdominal pain --- Additional Notes or Special Instructions: LABS PENDING @ 18:52 - JR CT abdomen and pelvis with contrast Comparison: CT/SR - CT ABDOMEN PELVIS W IV CON - 04/13/25 10:39 EDT Findings: The lung bases are clear. Hepatic steatosis. The spleen is homogeneous in attenuation. Cholelithiasis. The left and right kidney are homogeneous in enhancement. Right renal interpolar region cortical low-attenuation lesion, 0.9 cm; renal cysts. The pancreas is homogeneous in attenuation. No bowel obstruction, pneumoperitoneum, or pneumatosis. The appendix is within normal limits. The prostate is within normal limits. No acute fracture. IMPRESSION: 1. Hepatic steatosis. 2. Cholelithiasis. 3. No acute intraabdominal or pelvic findings. This document has been electronically signed by: Christopher Bonner MD on 07/28/2025 22:16:51
--- NOTE | ~2025-07-28 | CT_ITS ---
CLINICAL HISTORY: ETOH intoxication +fall CT head without contrast Comparison: CT/SR - CT HEAD/BRAIN WO IV CON - 05/25/25 20:59 EDT Findings: No intra-axial mass, midline shift, hydrocephalus, or acute hemorrhage. Right frontal lobe geographic area of encephalomalacia. Mild cerebral atrophy. There is no sinus or mastoid fluid. The orbits are within normal limits. No skull fracture. IMPRESSION: 1. 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 2. No acute intracranial findings. This document has been electronically signed by: Christopher Bonner MD on 07/28/2025 22:01:58
[2025-07-28 18:30] VITALS: BP 138/76; BP 147/89; PULSE 74; PULSE 82; RESP 14; TEMP 36.8; O2SAT 96; O2SAT 97; BMI 30.4
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
--- OUTSIDE RECORDS SUMMARY | 2025-07-28 18:50 | XMS_ITS | Encounter Summary ---
Author Organization [facility] Address [address] [place] [address] Phone Care Team Providers Care Traditional Chinese Herbalist Name Role Phone Ramin Arnold MD Primary Care Provider [phone] Encounter Details Date Type Department Care Team (Late st Contact Info) Description 11/16/2024 Procedure Pass [facility] [place] [place], [place] [facility], 2nd Floor, [address] [place] [address] Social History Tobacco Use Types Packs/Day Years [...] 11/16/2024 5:00 PM Ju Hines RN * [place] Suicide Severity Rating Scale (Screener/Recent Self-Report) Question [...] on filedocumented in this encounter Care Teams Traditional Chinese Herbalist Relationship Specialty Start Date End Date Ramin Arnold MD PCP - General Family Medicine 05/19/20 documented as of this encounter Additional Source Comments The information contained in this document represents components of the legal health record. It is not the complete legal health record.[facility]
--- OUTSIDE RECORDS SUMMARY | 2025-07-28 18:50 | XMS_ITS | Clinical Summary ---
Author Organization [facility] it Address [address] [place] [address] Care Team Providers Care Instructor Wastewater Treatment Plant Name Role Phone Unavailable Primary Care Provider [...]
--- OUTSIDE RECORDS SUMMARY | 2025-07-28 18:50 | XMS_ITS | Clinical Summary ---
Author Organization [facility] Address [address] [place] [address] Phone Care Team Providers Care Plant Buyer Name Role Phone Ramin Arnold MD Primary Care Provider [phone] Allergies Active Allergy Reactions Criticality Noted Date [...] Advance Directives For more information, please contact: [phone] (9AM - 5PM [facility], Monday-Monday) * Full Code (Latest Code Status on File) Date Activated Date Inactivated Comments 11/16/2024 5:47 PM Question Answer Comments Code Status Confirmed With: Patient * Full Code Date Activated Date Inactivated Comments 11/16/2024 5:45 PM 11/16/2024 5:47 PM Question Answer Comments Code Status Confirmed With: Other (specify below ) Care Teams Plant Buyer Relationship Specialty Start Date End Date Ramin Arnold MD [email or web address] PCP - General Family Medicine 05/19/20 Additional Source Comments The information contained in this document represents components of the legal health record. It is not the complete legal health record.[facility]
--- OUTSIDE RECORDS SUMMARY | 2025-07-28 18:50 | XMS_ITS | Encounter Summary ---
Author Organization [facility] Address [address] [place] [address] Phone Care Team Providers Care Lab Engineer Name Role Phone Ramin Arnold MD Primary Care Provider Encounter Details Date Type Department Care Team ([facility] st Contact Info) Description 11/16/2024 Ophth Exam [facility]DA Consult from [address] [address] Lit Price MD [address] [place] [id number] [email or web address] Social History Tobacco Use Types Packs/Day Years [...] 11/16/2024 5:00 PM Ju Hines RN * [place] Suicide Severity Rating Scale (Screener/Recent Self-Report) Question Answer Date of Assessment Author 1. Wish to be (Past 1 Month) No 025 5:00 PM Ju Hines RN 2. Non-Specific Active Suici jennifer Thoughts (Past 1 Month) No 11/16/2024 5:00 PM Ju Hines, STEFFANY 6. Suicidal Behavior (Lifetime) No 5:00 PM Ju Hines, STFEFANY documented as of this encounter Plan of Treatment Not on file documented as of this encounter Visit Diagnoses Not on filedocumented in this encounter Care Teams Lab Engineer Relationship Specialty Start Date End Date Ramin Arnold MD [email or web address] PCP - General Family Medicine 05/19/20 documented as of this encounter Additional Source Comments The information contained in this document represents components of the legal health record. It is not the complete legal health record.[facility]
--- OUTSIDE RECORDS SUMMARY | 2025-07-28 18:50 | XMS_ITS | Encounter Summary ---
Author Organization [facility] Address [address] [place] [address] Phone Care Team Providers Care Director Of Casino Name Role Phone Ramin Arnold MD Primary Care Provider [phone] Encounter Details Date Type Department Care Team (Late st Contact Info) Description 05/21/2020 Transcribe Orders [facility] Specimen Processing [address] [place], [place] [id number] Ramin Arnold MD [address] [place] [address] [address] [place] [address] [email or web address] COVID-19 ruled out (Primary Dx) Social History [...] 5:36 PM EDT) Specimen Source NASOPHARYNGEAL SWAB (MICROWAVE ENGINEER) [facility] COVID Testing Status [place] [facility] Other 05/21/2020 5:36 PM EDT 05/21/2020 5:47 PM EDT us Ramin Arnold MD BODY FLUIDS AND STOOLS ORDERABLE S Final Result [facility] [address] [place] [address] documented in this encounter Visit Diagnoses Diagnosis COVID-19 ruled out- Primary documented in this encounter Additional Health Concerns Infection Onset Date Last Indicated Resolved Time CoV-Exposed Comment:Recent close contact 05/21/2020 05/21/2020 06/04/2020 1:23 AM EDT CoV-Exposed Comment:Recent close contact 06/04/2020 06/04/2020 06/18/2020 1:24 AM EDT CoV-Exposed Comment:Recent close contact 08/26/2020 08/26/2020 09/09/2020 1:24 AM EST documented as of this encounter Care Teams Director Of Casino Relationship Specialty Start Date End Date Ramin Arnold MD [email or web address] PCP - General Family Medicine 05/19/20 documented as of this encounter Additional Source Comments The information contained in this document represents components of the legal health record. It is not the complete legal health record.[facility]
--- OUTSIDE RECORDS SUMMARY | 2025-07-28 18:50 | XMS_ITS | Encounter Summary ---
Author Organization [facility] Address [address] [place] [address] Phone Care Team Providers Care Carpenter Helper Maintenance Name Role Phone Ramin Arnold MD Primary Care Provider [phone] Encounter Details Date Type Department Care Team (Late st Contact Info) Description 11/16/2024 Ophth Exam [facility]ANDA Oph Trauma Main [place] [address] [place] [address] Laurence Coelho MD [address] [place] [id number] [email or web address] Social History Tobacco Use Types [...] 11/16/2024 5:00 PM Ju Hines RN * [place] Suicide Severity Rating Scale (Screener/Recent Self-Report) Question [...] on filedocumented in this encounter Care Teams Carpenter Helper Maintenance Relationship Specialty Start Date End Date Ramin Arnold MD [email or web address] PCP - General Family Medicine 05/19/20 documented as of this encounter Additional Source Comments The information contained in this document represents components of the legal health record. It is not the complete legal health record.[facility]
--- OUTSIDE RECORDS SUMMARY | 2025-07-28 18:50 | XMS_ITS | Encounter Summary ---
Author Organization [facility] Address [address] [place] [address] Phone Care Team Providers Care Fisher Pot Name Role Phone Ramin Arnold MD Primary Care Provider [phone] Encounter Details Date Type Department Care Team (Late st Contact Info) Description 11/17/2024 Procedure Pass [facility]DA [address] PERIOP DEPT [address] [place] [address] Social History Tobacco Use Types Packs/Day Years [...] on filedocumented in this encounter Care Teams Fisher Pot Relationship Specialty Start Date End Date Ramin Arnold MD [email or web address] PCP - General Family Medicine 05/19/20 documented as of this encounter Additional Source Comments The information contained in this document represents components of the legal health record. It is not the complete legal health record.[facility]
--- OUTSIDE RECORDS SUMMARY | 2025-07-28 18:50 | XMS_ITS | Encounter Summary ---
Author Organization [facility] Address [address] [place] [address] Phone Care Team Providers Care Internal Medicine Specialist Name Role Phone Ramin Arnold MD Primary Care Provider [phone] Encounter Details Date Type Department Care Team (Late st Contact Info) Description 11/19/2024 Ophth Exam [facility]ANDA Oph Trauma Main [place] [address] [place] [address] Laurence Coelho MD [address] [place] [phone] [email or web address] Social History Tobacco Use Types Packs/Day [...] on filedocumented in this encounter Care Teams Internal Medicine Specialist Relationship Specialty Start Date End Date Ramin Arnold MD [email or web address] PCP - General Family Medicine 05/19/20 documented as of this encounter Additional Source Comments The information contained in this document represents components of the legal health record. It is not the complete legal health record.[facility]
[2025-07-28 19:07] LABS: MANUAL DIFF FLAG NO
[2025-07-28 19:12] VITALS: BP 147/89; PULSE 74; RESP 14; TEMP 36.8; O2SAT 97
[2025-07-28] MEDS: Magnesium Hydrox/Alum Hydrox 30 ML ORAL.SUSP PO (19:19)
[2025-07-28] MEDS: PHENobarbitaL sodium 130 MG/ML IM ONCE 218 MG IM (19:19)
[2025-07-28 19:23] LABS: Alanine Aminotransferase 63 U/L (0-40); Albumin Level 4.5 g/dL (3.5-5.0); Alkaline Phosphatase 88 U/L (39-117); Anion Gap 12 (12-20); Aspartate Amino Transferase 118 U/L (5-37); Blood Urea Nitrogen 5 mg/dL (9-16); Calcium 9.1 mg/dL (8.4-10.2); Carbon Dioxide 31 mmol/L (22-29); Chloride 110 mmol/L (96-108); Creatinine Clr Calc Pharmacy 167.8; Estimated Glomerular Filt Rate > 60; Lipase 65 U/L (8-78); Magnesium 2.0 mg/dL (1.6-2.6); Potassium 3.4 mmol/L (3.3-5.1); Sodium 150 mmol/L (135-145); Total Protein 8.6 g/dL (6.5-8.0)
--- NOTE | 2025-07-28 19:51 | PC.NURSE ---
pt waititng to have CT scans done, medicated per MAR, IV started in R AC, tearful initially, now calm and cooperative. respirations even and unlabored.
[2025-07-28 19:54] LABS: Hematocrit 38.3 % (42.0-52.0); Hemoglobin 12.6 g/dl (14.0-18.0); Imm Gran Abs Auto 0.00 X10*3/uL (0.00-0.03); Imm Gran Pct Auto 0.0 % (0.0-0.4); Lymphocytes Absolute Auto 1.6 X10*3/uL (1.2-4.9); Mean Corpuscular HGB Conc 32.9 g/dl (31.0-36.0); Mean Corpuscular Hemoglobin 31.0 pg (27.0-33.0); Mean Corpuscular Volume 94.1 fL (80.0-98.0); NRBC Abs Auto 0.000 X10*3/uL (0.0-0.012); NRBC Pct Auto 0.0 /100WBC (0.0-0.2); Platelet Count 141 X10*3/uL (160-400); Red Blood Count 4.07 X10*6/uL (4.60-5.80); White Blood Count 3.3 X10*3/uL (4.8-10.8)
[2025-07-28] MEDS: iohexoL 350 MG/ML 100 ML INFUS..BTL 85 ML IV (20:51)
[2025-07-28] MEDS: PHENobarbitaL sodium 130 MG/ML VIAL IM Q3Hx2 164 MG IM (22:23)
[2025-07-29 00:35] LABS: HBS Num1 80.05 mIU/mL (0-7.99); HBc Num1 0.09 S/CO (0.00-0.79); HBsAGNum1 0.34 S/CO (0.00-0.99); HIV Num 1 0.06 S/CO (0.00-0.99); Hepatitis B Surface Antigen Negative (Negative); ~HepC Num1 0.15 S/CO (0.00-0.79); ~Hepatitis B Surface Antibody REACTIVE (Nonreactive)
[2025-07-29 00:40] LABS: Hepatitis C Ab Exposure Source NonReactive (Nonreactive)
[2025-07-29 01:18] VITALS: BP 99/64; PULSE 88; RESP 10; O2SAT 92
--- NOTE | 2025-07-29 01:19 | PC.NURSE ---
ashley rn to bedside to administer 0100 pheno per DEC. Pt's current BP is 99/64, per protocol medication is to be held for a SBP <100. MD Farley made aware and new orders to be obtained. Plan is for patient's 2nd pheno dose to be held until SBP >100.
[2025-07-29] MEDS: Lactated Ringers 1,000 ML 999 ML IV (01:28)
[2025-07-29 02:35] VITALS: BP 95/59; PULSE 67; RESP 10; O2SAT 92
[2025-07-29] MEDS: PHENobarbitaL sodium 130 MG/ML VIAL IM Q3Hx2 164 MG IM (02:37)
[2025-07-29 05:50] VITALS: BP 111/75; PULSE 71; RESP 16; O2SAT 94
[2025-07-29 09:17] VITALS: BP 122/89; PULSE 89; RESP 16; TEMP 36.6; O2SAT 98
== END 2025-07-29 09:29 | disposition home or self-care (01) ==
PROVIDERS: Emergency Medicine; Physician Assistant; Emergency Provider Emergency Medicine
DX: S09.90XA Unspecified injury of head, initial encounter (principal); R51.9 Headache, unspecified; M54.2 Cervicalgia; F10.129 Alcohol abuse with intoxication, unspecified; Y90.8 Blood alcohol level of 240 mg/100 ml or more; R10.9 Unspecified abdominal pain; R11.0 Nausea; W01.10XA Fall on same level from slipping, tripping and stumbling with subsequent striking against unspecified object, initial encounter; Y93.9 Activity, unspecified; Y92.9 Unspecified place or not applicable; Y99.8 Other external cause status; Z51.81 Encounter for therapeutic drug level monitoring; Z87.891 Personal history of nicotine dependence; Z79.899 Other long term (current) drug therapy
CPT/HCPCS: 36415; 70450; 72125; 74177; 80048; 80076; 80307; 83690; 83735; 85025; 86803; 96361; 96372; 96374; 99284; 99285; J1308; J2560; J7120; Q9967

== ENCOUNTER → 2025-07-28 18:41 | Outpatient (BNV) | payer MEDICAID, SELFPAY | PROVIDERS: Emergency Provider Emergency Medicine; Visit Provider Radiology Diagnostic Radiology | DX: K57.90 Diverticulosis of intestine, part unspecified, without perforation or abscess without bleeding (principal); K76.0 Fatty (change of) liver, not elsewhere classified; F10.929 Alcohol use, unspecified with intoxication, unspecified; S09.90XA Unspecified injury of head, initial encounter; R56.9 Unspecified convulsions | CPT/HCPCS: 70450; 72125; 74177 ==

== ENCOUNTER 2025-07-31 19:20 | Emergency (ER) | payer MEDICAID, SELFPAY ==
--- NOTE | 2025-07-31 | ECG_ITS ---
Test Reason : SEIZURE Blood Pressure : */* mmHG Vent. Rate : 64 BPM Atrial Rate : 64 BPM P-R Int : 172 ms QRS Dur : 86 ms QT Int : 396 ms P-R-T Axes : 31 30 40 degrees QTcB Int : 408 ms Normal sinus rhythm Normal ECG When compared with ECG of 18-Jul-2025 22:50, Vent. rate has decreased by 33 bpm Referred By: Generic ED Physician Electronically Signed By: Alistair Arcos
--- NOTE | ~2025-07-31 | CT_ITS ---
CLINICAL HISTORY: fall, etoh CT cervical spine without contrast Comparison: CT/SR - CT CERVICAL SPINE WO IV CON - 07/28/2025 08:40 PM EDT, CT/SR - CT CERVICAL SPINE WO IV CON - 05/25/25 20:59 EDT Findings: Normal vertebral body alignment. No significant degenerative change. No acute fractures or dislocations. No acute findings on limited view of the intracranial contents. No cervical fluid collections or masses. No consolidation or effusion at the lung apices. IMPRESSION: No acute findings. This document has been electronically signed by: Christopher Bonner MD on 07/31/2025 22:41:52
--- NOTE | ~2025-07-31 | CT_ITS ---
CLINICAL HISTORY: seizure, fall, etoh CT head without contrast Comparison: CT/SR - CT HEAD/BRAIN WO IV CON - 07/28/25 20:40 EDT Findings: No intra-axial mass, midline shift, hydrocephalus, or acute hemorrhage. Right frontal geographic areas is encephalomalacia, axial image number 47 of 83 series 3. Mild cerebral atrophy. The visualized paranasal sinuses and mastoid air cells are normal. The orbits are within normal limits. No skull fracture. IMPRESSION: 1. Right frontal lobe area of encephalomalacia, stable. 2. Mild cerebral atrophy. 3. No acute intracranial findings. This document has been electronically signed by: Christopher Bonner MD on 07/31/2025 22:37:47
[2025-07-31 19:25] VITALS: BP 123/89; PULSE 70; O2SAT 98
[2025-07-31 19:28] VITALS: BP 129/89; PULSE 84; RESP 18; TEMP 36.6; O2SAT 95; BMI 25.2
[2025-07-31 19:53] LABS: MANUAL DIFF FLAG NO
[2025-07-31 20:00] VITALS: BP 117/86; PULSE 58; RESP 12; O2SAT 93
[2025-07-31 20:08] LABS: Cannabinoid Screen Urine Not Detected (Not Detect)
[2025-07-31 20:10] LABS: Alanine Aminotransferase 59 U/L (0-40); Albumin Level 4.5 g/dL (3.5-5.0); Alkaline Phosphatase 83 U/L (39-117); Anion Gap 14 (12-20); Aspartate Amino Transferase 120 U/L (5-37); Blood Urea Nitrogen 4 mg/dL (9-16); Calcium 8.8 mg/dL (8.4-10.2); Carbon Dioxide 28 mmol/L (22-29); Chloride 109 mmol/L (96-108); Creatinine Clr Calc Pharmacy 160.9; Estimated Glomerular Filt Rate > 60; Hematocrit 37.7 % (42.0-52.0); Hemoglobin 12.7 g/dl (14.0-18.0); Imm Gran Abs Auto 0.01 X10*3/uL (0.00-0.03); Imm Gran Pct Auto 0.3 % (0.0-0.4); Lymphocytes Absolute Auto 1.4 X10*3/uL (1.2-4.9); Mean Corpuscular HGB Conc 33.7 g/dl (31.0-36.0); Mean Corpuscular Hemoglobin 31.1 pg (27.0-33.0); Mean Corpuscular Volume 92.4 fL (80.0-98.0); NRBC Abs Auto 0.000 X10*3/uL (0.0-0.012); NRBC Pct Auto 0.0 /100WBC (0.0-0.2); Platelet Count 135 X10*3/uL (160-400); Potassium 3.7 mmol/L (3.3-5.1); Red Blood Count 4.08 X10*6/uL (4.60-5.80); Sodium 147 mmol/L (135-145); Total Protein 8.5 g/dL (6.5-8.0); White Blood Count 3.1 X10*3/uL (4.8-10.8)
[2025-07-31 20:17] LABS: Troponin-I High Sensitivity 3.4 ng/L (<3.5-35.0)
--- NOTE | 2025-07-31 20:29 | PC.NURSE ---
seizure pads in place, pt resting comfortably. NSR, VSS
--- OUTSIDE RECORDS SUMMARY | 2025-07-31 20:44 | XMS_ITS | Encounter Summary ---
Author Organization [facility] Address [address] [place] [address] Phone Care Team Providers Care Residential Electrician Name Role Phone Ramin Arnold MD Primary Care Provider [phone] Encounter Details Date Type Department Care Team (Late st Contact Info) Description 11/17/2024 Procedure Pass [facility]DA 6TH FL PERIOP DEPT [address] [place] [address] Social History Tobacco Use Types Packs/Day Years [...] on filedocumented in this encounter Care Teams Residential Electrician Relationship Specialty Start Date End Date Ramin Arnold MD [email or web address] PCP - General Family Medicine 05/19/20 documented as of this encounter Additional Source Comments The information contained in this document represents components of the legal health record. It is not the complete legal health record.[facility]
--- OUTSIDE RECORDS SUMMARY | 2025-07-31 20:44 | XMS_ITS | Clinical Summary ---
Author Organization [facility] Address [address] [place] [address] Phone Care Team Providers Care Social Media Director Name Role Phone Ramin Arnold MD Primary Care Provider [phone] Allergies Active Allergy Reactions Criticality Noted Date [...] Advance Directives For more information, please contact: [phone] (9AM - 5PM Sil/[facility], Monday-Monday) * Full Code (Latest Code Status on File) Date Activated Date Inactivated Comments 11/16/2024 5:47 PM Question Answer Comments Code Status Confirmed With: Patient * Full Code Date Activated Date Inactivated Comments 11/16/2024 5:45 PM 11/16/2024 5:47 PM Question Answer Comments Code Status Confirmed With: Other (specify below ) Care Teams Social Media Director Relationship Specialty Start Date End Date Ramin Arnold MD [email or web address] PCP - General Family Medicine 05/19/20 Additional Source Comments The information contained in this document represents components of the legal health record. It is not the complete legal health record.[facility]
--- OUTSIDE RECORDS SUMMARY | 2025-07-31 20:44 | XMS_ITS | Encounter Summary ---
Author Organization [facility] Address [address] [place] [address] Phone Care Team Providers Care Broke Man Name Role Phone Ramin Arnold MD Primary Care Provider [phone] Encounter Details Date Type Department Care Team ([facility] st Contact Info) Description 11/16/2024 Ophth Exam [facility]DA Consult from [address] [address] Lit Price MD [address] [place] [address] [email or web address] Social History Tobacco Use Types Packs/Day Years [...] 11/16/2024 5:00 PM Ju Hines RN * [place] Suicide Severity Rating Scale (Screener/Recent Self-Report) Question [...] on filedocumented in this encounter Care Teams Broke Man Relationship Specialty Start Date End Date Ramin Arnold MD [email or web address] PCP - General Family Medicine 05/19/20 documented as of this encounter Additional Source Comments The information contained in this document represents components of the legal health record. It is not the complete legal health record.[facility]
--- OUTSIDE RECORDS SUMMARY | 2025-07-31 20:44 | XMS_ITS | Data Portability ---
Author Organization [facility], Main Office Address [address] [place] [address] Care Team Providers Care Put In Beat Adjuster Name Role Phone [facility] OTHER Assessment Encounter Date Assessment [...] Address Organization Details Recorded Time Alcohol dependence 65845854 Active 2019 Riri harman, [facility] 0 10:55:15 Alcohol dependence 03879926 Active 2019 Riri Espinal null, [facility] 0 10:55:21 Sinus bradycardia 89865887 Active 2019 Riri harman, [facility] 0 10:55:22 Asthma 607980649 Active 2019 Riri harman, [facility] 0 10:55:25 Harmful pattern of use of cocaine 65384079 Active 2022 JESSICADOROTA HALEY, [employer] [address], [place], [address], [facility] 3 17:51:39 Homeless 90808062 Active 2022 JESSICADOROTA HALEY, [facility] [address], [address], [place], [address], [facility] 3 18:07:02 Asthenia 57400890 Active 2022 JESSICADOROTA HALEY, [facility] [address], [address], [place], [address], [facility] [employer] 3 18:07:05 Bradycardia 66998760 Active 2022 JESSICA HALEY, [facility] [address], [address], [place], [address], [facility] [employer] 3 18:07:11 Laboratory test result abnormal 317560960 Active 2022 JESSICADOROTA HALEY, [facility] [address], [address], [place], [address], [facility] [employer] 3 18:07:15 Problem Notes None recorded. Medical Equipment None Reported. Allergies Allergen ID Allergen Name Allergen Category Reaction Reaction Severity Criticality Documentation Date Start Date Code Code System Note Provider Name and Address Organization Details Recorded Time 30572 shellfish derived food,medi cation Not available Not available Not available 05/19/2020 Riri harman, [facility] [employer] 0 08:43:01 Medications Not known to be on any medication Vitals Date Recorded Heart rate Respiratory rate Body temperature Oxygen saturation Oxygen saturation in Arterial blood by Pulse oximetry Systolic And Diastolic Provider Name and Address Organization Details Last Updated DateTime 3 78 /min 18 /min 97.4 [degF] 99 % 99 % 115/67 mm[Hg] Dayana Sarmiento -Kierkla [address], [address], [place], [address], [facility] [employer] 3 10:21:31 Social History Question Answer Notes LastModified by Organizat ion Details LastModified Time Tobacco Smoking Status Current Every Day Smoker 2 a day MIKE REYNOLDS [address], [address], [place], [address], [facility] 07/19/2023 17:16:49 Do You [...] Do You Have A Medical Power Of Garage Mechanic? No Information not available 07/19/2023 What Was [...] anxious, or unable to sleep at night)? [id number] Information not available 07/19/2023 Family History Relationship [...] 25mcg/0.25 mL dose 2 completed Nicole harman [facility] 10/17/2023 11:43:55 Tdap 2 completed Nicole harman [facility] 01/22/2024 14:21:00 Td (adult), 5 Lf tetanus toxoid, preservative free, adsorbed 7 completed Nicole harman [facility] 01/22/2024 14:21:20 Td (adult), 5 Lf tetanus toxoid, preservative free, adsorbed 8 completed Nicole harman [facility] 01/22/2024 14:21:35 pneumococcal polysaccharide PPV23 8 completed Nicole harman [facility] 01/22/2024 14:21:54 pneumococcal polysaccharide PPV23 6 completed Nicole harman [facility] 01/22/2024 14:22:04 Influenza, adjuvanted, quadrivalent, PF 3 completed Nicole harman [place] [facility] 01/22/2024 14:23:02 Past Encounters Encounter ID Performer Location Encounter Start Date Encounter Closed Date Diagnosis/Indication Diagnosis SNOMED-CT Code Diagnosis ICD10 Code Diagnosis IMO Codes Diagnosis Note [id number] MIKE Chen [facility] on [address] [place] [address] 05/19/2020 08:42:26 05/29/2020 13:18:57 Alcohol dependence 54516281 F10.288 Hx of withdrawal seizuresFo lic acid 1 mg dailyThiam ine 100 mg dailyPT OT eval and treat Sinus bradycardia 254245 05 R00.1 Implanted nut sorter operator in placeF/u with cardiology Monitor HR Asthma 558284084 J45.99 8 Monitor respirator y status Liver enzy mes level above reference range 886119005 R74.8 Secondary to heavy ETOH useRepeat and monitor [id number] Lois Multani MD [facility] on [address] [place] [address] 05/20/2020 07:06:00 05/29/2020 14:50:19 Alcohol dependence 69631677 F10.20 thiamine 100 mg dailyfolic acid 1 mg dailysocia l work fu to encourage ongoing support and treatment Asthenia 69285032 R53.1 PT/OTwill monitor Liver enzy mes level above reference range 987672029 R74.8 will monitor Sinus bradycardia 807963 05 R00.1 resolvedwi ll monitor [id number] MIKE Chen [facility] on [address] [place] [address] 05/26/2020 09:30:59 05/29/2020 13:59:21 Alcohol dependence 06342414 F10.288 Hx of withdrawal seizuresFo lic acid 1 mg dailyThiam ine 100 mg dailyNo sxs of withdrawal noted Sinus bradycardia 352306 05 R00.1 Implanted nut sorter operator in placeF/u with cardiology Monitor HR-ranges 58-88 Asthma 149628295 J45.99 8 Monitor respirator y statusOn no medication s [id number] MIKE Chen [facility] on [address] [place] [address] 06/12/2020 08:31:05 06/16/2020 10:01:54 Alcohol dependence 60494491 F10.288 Hx of withdrawal seizuresFo lic acid 1 mg dailyThiam ine 100 mg dailyNo signs of withdrawal currently Sinus bradycardia 556676 05 R00.1 Implanted nut sorter operator in placeF/u with cardiology Monitor HR Asthma 666005712 J45.99 8 Monitor respirator y status Liver enzy mes level above reference range 185933568 R74.8 Secondary to heavy ETOH useRepeat LFTs 06/15 [id number] Riri Espinal [facility] on [address] [place] [address] 06/16/2020 11:47:30 06/18/2020 11:34:00 Alcohol dependence 82543441 F10.288 Hx of withdrawal seizuresFo lic acid 1 mg dailyThiam ine 100 mg dailyNo signs of withdrawal Encouraged to remain sober Sinus bradycardia 863666 05 R00.1 Implanted nut sorter operator in placeRemai ns asymptomat ic F/u with cardiology Asthma 324906583 J45.99 8 No respirator y issues currentlyF /u with PCP Liver enzy mes level above reference range 635732248 R74.8 Secondary to heavy ETOH useNow resolved [id number] JESSICA HALEY [facility] on [address] [place] [id number] 07/19/2023 15:26:02 07/27/2023 10:51:11 Laboratory test result abnormal 184202991 R89.9 In acute care rhabdo, hypokalemi a, transamini tis, hypomagnes emia , thrombocyt openia, normocytic , metabolic acidosis , normocytic anemia likely related to etoh abuse,,tx with IVF and supplement al replacemen tmonitor labs Alcohol dependence 87013 003 F10.288 hx seizures with withdrawal witnessed clonic tonic seizurestr eated with ativan and phenobarbi talencoura ged abstinence SUDs referralmo nitor for seizure activityco ntinue thiamine 100 mg qdfolate [address] 666 mg tid Bradycardia 65318602 R00 .1 Hx of syncope with implantabl e loop recorderSB in acute care with pausescard iology and EPS consulted- ILR interrogat ed, showed no correlatio n of syncope and pauses, no need for PPM. ILR removed.re commending PSG outpatient to r/o [facility]- referral paced in [facility] Harmful pa ttern of use of cocaine 39157683 F14.10 refer to SUDsencour aged abstinence provide supportive services /refer to [facility] Homeless 09226326 Z59.00 social media project manager for support and services Asthenia 55562939 R53.1 impaired gait/weakn essPT/OT evalMorse 10 Asthma 471204340 J45.99 8 hxnot currently on medication smonitor for resp/clini aldair changes [id number] Losi Multani MD [facility] on [address] [place] [address] 07/21/2023 05:52:30 07/27/2023 11:40:25 Asthenia 25565175 R53.1 PT/OTwill monitor Alcohol dependence 11993 003 F10.288 thiamine 100 mg dailyfolic acid 1 mg dailyacamp rosate 666 mg tldsocial work fu to encourage ongoing support and treatment Bradycardia 74678293 R00 .1 not associated with syncopewil l monitor History of seizure due to alcohol withdrawal 8145849366 39888 Z86.69 completed withdrawal protocolwi ll monitor [id number] MIKE REYNOLDS [facility] on [address] [place] [address] 07/24/2023 09:10:19 07/31/2023 15:03:51 Alcohol dependence 02442204 F10.288 there has been no seizure activity reported. hx seizures with withdrawal witnessed clonic tonic seizurestr eated with ativan and phenobarbi talencoura ged abstinence SUDs referralmo nitor for seizure activityco ntinue thiamine 100 mg qdfolate [address] 666 mg tid Laboratory test result abnormal 517697341 R89.9 In acute care rhabdo, hypokalemi a, transamini tis, hypomagnes emia , thrombocyt openia, normocytic , metabolic acidosis , normocytic anemia likely related to etoh abuse,,tx with IVF and supplement al replacemen tmonitor labs Bradycardia 39036871 R00 .1 denies any cardiac sx today. apical rate 70 Hx of syncope with implantabl e loop recorderSB in acute care with pausescard iology and EPS consulted- ILR interrogat ed, showed no correlatio n of syncope and pauses, no need for PPM. ILR removed.re commending PSG outpatient to r/o [facility]- referral paced in [facility] Harmful pa ttern of use of cocaine 30143985 F14.10 refer to SUDsencour aged abstinence provide supportive services /refer to Homeless 62516675 Z59.00 social media project manager for support and services Asthenia 19200384 R53.1 plan for OTimpaired gait/weakn ess Pineda 10 Asthma 800686709 J45.99 8 hxnot currently on medication smonitor for resp/clini aldair changes [id number] MIKE REYNOLDS [facility] on [address] [place] [address] 07/26/2023 10:31:42 07/31/2023 15:13:33 Alcohol dependence 56946182 F10.288 there has been no seizure activity reported. hx seizures with withdrawal witnessed clonic tonic seizurestr eated with ativan and phenobarbi talencoura ged abstinence SUDs referralmo nitor for seizure activityco ntinue thiamine 100 mg qdfolate [address] 666 mg tid Bradycardia 22264550 R00 .1 HR 69Hx of syncope with implantabl e loop recorderSB in acute care with pausescard iology and EPS consulted- ILR interrogat ed, showed no correlatio n of syncope and pauses, no need for PPM. ILR removed.re commending PSG outpatient to r/o [facility]- referral paced in [facility] Harmful pa ttern of use of cocaine 05484497 F14.10 refer to SUDsencour aged abstinence provide supportive services /refer to [facility] 05292079 Z59.00 social media project manager for support and services Asthenia 15124158 R53.1 plan for OTimpaired gait/weakn ess10/11: he is ambulating with steady gait independen tly. Asthma 476515427 J45.99 8 hxnot currently on medication smonitor for resp/clini aldair changes [id number] MIKE REYNOLDS [facility] on [address] [place] [address] 08/01/2023 09:31:41 08/08/2023 09:26:07 Alcohol dependence 16014462 F10.288 there has been no seizure activity reported. hx seizures with withdrawal witnessed clonic tonic seizurestr eated with ativan and phenobarbi talencoura ged abstinence SUDs referralmo nitor for seizure activityco ntinue thiamine 100 mg qdfolate [address] 666 mg tid Bradycardia 07049239 R00 .1 HR 69Hx of syncope with implantabl e loop recorderSB in acute care with pausescard iology and EPS consulted- ILR interrogat ed, showed no correlatio n of syncope and pauses, no need for PPM. ILR removed.re commending PSG outpatient to r/o [facility]- referral paced in [facility] Harmful pa ttern of use of cocaine 41884540 F14.10 refer to SUDsencour aged abstinence provide supportive services /refer to Homeless 08728347 Z59.00 social media project manager for support and services Asthenia 43935978 R53.1 plan for OTimpaired gait/weakn ess07/26: he is ambulating with steady gait independen tly. Asthma 475322357 J45.99 8 hxnot currently on medication smonitor for resp/clini aldair changes [id number] MIKE REYNOLDS [facility] on [address] [place] [address] 08/04/2023 08:03:49 08/08/2023 11:32:51 Alcohol dependence 69975832 F10.288 08/04: there has been no seizure activity reported. hx seizures with withdrawal witnessed clonic tonic seizurestr eated with ativan and phenobarbi talencoura ged abstinence SUDs referralmo nitor for seizure activityco ntinue thiamine 100 mg qdfolate [address] 666 mg tid Bradycardia 30842074 R00 .1 HR 69Hx of syncope with implantabl e loop recorderSB in acute care with pausescard iology and EPS consulted- ILR interrogat ed, showed no correlatio n of syncope and pauses, no need for PPM. ILR removed.re commending PSG outpatient to r/o [facility]- referral paced in [facility] Harmful pa ttern of use of cocaine 97192926 F14.10 refer to SUDsencour aged abstinence provide supportive services /refer to Homeless 84817294 Z59.00 social media project manager for support and services Asthenia 31420135 R53.1 plan for OTimpaired gait/weakn ess07/26: he is ambulating with steady gait independen tly.08/04: meeting goals with therapy, independen t with care. Asthma 876924194 J45.99 8 hxnot currently on medication smonitor for resp/clini aldair changes [id number] MIKE REYNOLDS [facility] on [address] [place] [address] 08/10/2023 08:14:16 08/17/2023 15:56:48 Alcohol dependence 17448191 F10.288 hx seizures with withdrawal witnessed clonic tonic seizurestr eated with ativan and phenobarbi talencoura ged abstinence SUDs referralmo nitor for seizure activityco ntinue thiamine 100 mg qdfolate [address] 666 mg tid Bradycardia 89127396 R00 .1 Hx of syncope with implantabl e loop recorderSB in acute care with pausescard iology and EPS consulted- ILR interrogat ed, showed no correlatio n of syncope and pauses, no need for PPM. ILR removed.re commending PSG outpatient to r/o [facility]- referral paced in [facility] Harmful pa ttern of use of cocaine 56177886 F14.10 refer to SUDsencour aged abstinence provide supportive services /refer to [facility] Homeless 27228524 Z59.00 social media project manager for support and services Asthenia 93558805 R53.1 08/09/2023 : therapy goals met.He is independen t on on unit. Asthma 702134385 J45.99 8 hxnot currently on medication smonitor for resp/clini aldair changes [id number] MIKE REYNOLDS [facility] on [address] [place] [address] 08/16/2023 07:01:21 08/18/2023 08:46:19 Alcohol dependence 97979407 F10.288 08/16: There has been no reported seizurehx seizures with withdrawal witnessed clonic tonic seizurestr eated with ativan and phenobarbi talencoura ged abstinence SUDs referralmo nitor for seizure activityco ntinue thiamine 100 mg qdfolate [address] 666 mg tid Asthma 759368170 J45.99 8 08/16: Denies any shortness of breath or resp. issuesnot currently on medication smonitor for resp/clini aldair changes [id number] Dayana Sarmiento Lo [facility] on [address] [place] [address] 08/25/2023 10:10:49 08/28/2023 11:33:00 Alcohol dependence 84073251 F10.288 08/16: There has been no reported seizurehx seizures with withdrawal witnessed clonic tonic seizurestr eated with ativan and phenobarbi talencoura ged abstinence SUDs referralmo nitor for seizure activityco ntinue thiamine 100 mg qdfolate [address] 666 mg tid Asthma 901917212 J45.99 8 08/16: Denies any shortness of breath or resp. issuesnot currently on medication smonitor for resp/clini aldair changes Harmful pa ttern of use of cocaine 08254670 F14.10 follow up with outpatient carehas not used during SNF stay Homeless 31566853 Z59.00 discharge [facility] prison Sinus bradycardia 027485 05 R00.1 resolved, HR 78 today Laboratory test result abnormal 528448251 R89.9 resolved, follow up with outpt PCP next week Health Concerns Section Related Observation LastModified by Organization Detai ls LastModified Time None Recorded Concern Status LastModified by Organization Details LastModified Time None Recorded Advance Directives Directive Y: Payers Insurance Date Sequence Insurance Name Policy Number Policy Hobbs Covered Member ID Hobbs Member ID Guarantor Name 03/21/2024 1 [place] [facility] [id number] [facility] Notes Date Note Type Note Provider Name and Address Organization Details Recorded Time 08/01/2023 text/html ROS as noted in the HPI Seen today for acute rounding visit. Past medical history remarkable for alcohol abuse dependency with withdrawal seizures, syncope with implantable loop recorder in place. Presented to [facility] on 07/08/23 from outside source with both unwitnessed and witnessed seizure; on arrival to ED he had another witnessed tonic clonic seizure associated with post ictal. He was treated with IV ativan and started on phenobarbital protocol. He was admitted for ETOH withdrawal, Rhabdo and and found to have sinus pauses. Evaluated by therapy for weakness, admitted to [facility] for continued care and rehab. On exam today he is stable, there is no acute nursing concerns. progressing toward therapy goals. MIKE REYNOLDS [address], [address], [place], [address], [facility] 08/01/2023 14:12:08 08/04/2023 text/html ROS as noted in the HPI Seen today for acute rounding visit. Past medical history remarkable for alcohol abuse dependency with withdrawal seizures, syncope with implantable loop recorder in place. Presented to [facility] on 07/08/23 from outside source with both unwitnessed and witnessed seizure; on arrival to ED he had another witnessed tonic clonic seizure associated with post ictal. He was treated with IV ativan and started on phenobarbital protocol. He was admitted for ETOH withdrawal, Rhabdo and and found to have sinus pauses. Evaluated by therapy for weakness, admitted to [facility] for continued care and rehab. He continue to be medically stable, he has been working with therapy, as of note he has progressed to independent for adl no adaptive device required. On exam he noted ambulating on unit with steady gait, he tells me that he is ok, there is no acute nursing concerns. MIKE REYNOLDS [address], [address], [place], [address], [facility] 08/04/2023 13:02:43 08/10/2023 text/html ROS as noted in the HPI Duarte is seen today for acute rounding visit. Past medical history of ETOH abuse with withdrawal seizures, cocaine abuse, asthma.He has been stable, he offers no complaints. There is no acute nursing concerns. MIKE REYNOLDS [address], [address], [place], [address], [facility] 08/10/2023 10:56:55 08/16/2023 text/html Duarte is seen today for routine rounding PROGRAM ARRANGER 30 day visit. Past medical history of ETOH abuse with withdrawal seizures, cocaine abuse, asthma. Duarte is alert and verbal in NAD. He has been stable seen his last rounding visit, there is no complaints, there is no acute nursing concerns. MIKE REYNOLDS [address], [address], [place], [address], [facility] 08/16/2023 11:03:33 08/25/2023 text/html ROS as noted in the HPI Duarte is seen today for discharge. Past medical history of ETOH abuse with withdrawal seizures, cocaine abuse, asthma. Duarte is alert and verbal in NAD. He has been stable seen his last rounding visit, there is no complaints, there is no acute nursing concerns. Dayana valle [address], [address], [place], [address], [facility] 08/25/2023 10:26:05
--- OUTSIDE RECORDS SUMMARY | 2025-07-31 20:44 | XMS_ITS | Clinical Summary ---
Author Organization [facility] it Address [address] [place] [address] Care Team Providers Care Blocker Hand Name Role Phone Unavailable Primary Care [...]
--- OUTSIDE RECORDS SUMMARY | 2025-07-31 20:44 | XMS_ITS | Encounter Summary ---
Author Organization [facility] Address [address] [place] [address] Phone Care Team Providers Care Shingle Trimmer Name Role Phone Ramin Arnold MD Primary Care Provider [phone] Encounter Details Date Type Department Care Team (Late st Contact Info) Description 11/19/2024 Ophth Exam AMANDA O[facility] Tra[facility] [place] [address] [place] [address] Laurence Coelho MD [address] [place] [id number] [email or web address] Social History Tobacco Use Types Packs/Day Years [...] on filedocumented in this encounter Care Teams Shingle Trimmer Relationship Specialty Start Date End Date Ramin Arnold MD [email or web address] PCP - General Family Medicine 05/19/20 documented as of this encounter Additional Source Comments The information contained in this document represents components of the legal health record. It is not the complete legal health record.[facility]
--- OUTSIDE RECORDS SUMMARY | 2025-07-31 20:44 | XMS_ITS | Encounter Summary ---
Author Organization [facility] Address [address] [place] [address] Phone Care Team Providers Care Stick Puller Name Role Phone Ramin Arnold MD Primary Care Provider [phone] Encounter Details Date Type Department Care Team (Late st Contact Info) Description 11/16/2024 Procedure Pass [facility], [address] [facility], [address] [place] [address] Social History Tobacco Use Types Packs/Day Years [...] 11/16/2024 5:00 PM Ju Hines RN * [place] Suicide Severity Rating Scale (Screener/Recent Self-Report) Question [...] on filedocumented in this encounter Care Teams Stick Puller Relationship Specialty Start Date End Date Ramin Arnold MD PCP - General Family Medicine 05/19/20 documented as of this encounter Additional Source Comments The information contained in this document represents components of the legal health record. It is not the complete legal health record.[facility]
--- OUTSIDE RECORDS SUMMARY | 2025-07-31 20:44 | XMS_ITS | Encounter Summary ---
Author Organization [facility] Address [address] [place] [address] Phone Care Team Providers Care Promotion Writer Name Role Phone Ramin Arnold MD Primary Care Provider Encounter Details Date Type Department Care Team (Late st Contact Info) Description 11/16/2024 Ophth Exam AMANDA Oph Trauma Main [place] [address] [place] [address] Laurence Coelho MD [address] [place] [phone] [email or web address] Social History Tobacco Use Types Packs/Day Years [...] 11/16/2024 5:00 PM Ju Hines RN * [place] Suicide Severity Rating Scale (Screener/Recent Self-Report) Question [...] on filedocumented in this encounter Care Teams Promotion Writer Relationship Specialty Start Date End Date Ramin Arnold MD [email or web address] PCP - General Family Medicine 05/19/20 documented as of this encounter Additional Source Comments The information contained in this document represents components of the legal health record. It is not the complete legal health record.[facility]
--- OUTSIDE RECORDS SUMMARY | 2025-07-31 20:44 | XMS_ITS | Encounter Summary ---
Author Organization [facility] Address [address] [place] [address] Phone Care Team Providers Care Cordwainer Name Role Phone Ramin Arnold MD Primary Care Provider [phone] Encounter Details Date Type Department Care Team (Late st Contact Info) Description 05/21/2020 Transcribe Orders [facility] Specimen Processing [address] [place], [place] [id number] Ramin Arnold MD [address] [place] [address] [address] [place] [address] [email or web address] COVID-19 ruled out (Primary Dx) Social History [...] 5:36 PM EDT) Specimen Source NASOPHARYNGEAL SWAB (SUPERVISOR CARBON ELECTRODES) [facility] COVID Testing Status Sent [place] [facility] Other 05/21/2020 5:36 PM EDT 05/21/2020 5:47 PM EDT us Ramin Arnold MD BODY FLUIDS AND STOOLS ORDERABLE S Final Result [facility] [address] [place] [address] documented in this encounter Visit Diagnoses Diagnosis COVID-19 ruled out- Primary documented in this encounter Additional Health Concerns Infection Onset Date Last Indicated Resolved Time CoV-Exposed Comment:Recent close contact 05/21/2020 05/21/2020 06/04/2020 1:23 AM EDT CoV-Exposed Comment:Recent close contact 06/04/2020 06/04/2020 06/18/2020 1:24 AM EDT CoV-Exposed Comment:Recent close contact 08/26/2020 08/26/2020 09/09/2020 1:24 AM EST documented as of this encounter Care Teams Cordwainer Relationship Specialty Start Date End Date Ramin Arnold MD [email or web address] PCP - General Family Medicine 05/19/20 documented as of this encounter Additional Source Comments The information contained in this document represents components of the legal health record. It is not the complete legal health record.[facility]
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
[2025-07-31 22:03] VITALS: BP 111/76; PULSE 57; RESP 12; TEMP 36.6; O2SAT 96
[2025-07-31 23:51] VITALS: BP 99/56; PULSE 82; RESP 13; O2SAT 96
[2025-08-01 04:00] VITALS: BP 95/65; PULSE 66; RESP 14; O2SAT 98
--- NOTE | 2025-08-01 05:15 | PC.NURSE ---
pt resting comfortably throughout the night, no seizure like activity. call braun w/in reach, no apparent distress noted at this time
[2025-08-01 05:58] VITALS: BP 95/56; PULSE 61; RESP 22; O2SAT 97
[2025-08-01 08:34] VITALS: BP 105/64; PULSE 90; RESP 16; O2SAT 96
--- NOTE | 2025-08-01 08:38 | PC.NURSE ---
patient is awake, alert and oriented, ate a sandwich and drank juice this morning. patient gait is steady, ambulated to the bathroom to get changed.
== END 2025-08-01 08:42 | disposition home or self-care (01) ==
PROVIDERS: Emergency Medicine; Emergency Provider Emergency Medicine
DX: F10.129 Alcohol abuse with intoxication, unspecified (principal); Z91.81 History of falling
CPT/HCPCS: 36415; 70450; 72125; 80053; 80307; 82550; 83605; 84484; 85025; 93005; 99284

== ENCOUNTER → 2025-07-31 19:33 | Outpatient (BNV) | payer MEDICAID, SELFPAY | PROVIDERS: Emergency Provider Emergency Medicine; Visit Provider Internal Medicine Cardiovascular Disease | DX: R56.9 Unspecified convulsions (principal) | CPT/HCPCS: 93010 ==

== ENCOUNTER → 2025-07-31 21:21 | Outpatient (BNV) | payer MEDICAID, SELFPAY | PROVIDERS: Emergency Provider Emergency Medicine; Visit Provider Radiology Diagnostic Radiology | DX: M50.322 Other cervical disc degeneration at C5-C6 level (principal); G31.89 Other specified degenerative diseases of nervous system; R51.9 Headache, unspecified | CPT/HCPCS: 70450; 72125 ==

== ENCOUNTER 2025-08-02 21:56 | Emergency (ER) | payer MEDICAID, SELFPAY ==
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
--- NOTE | ~2025-08-02 | XR_ITS ---
CLINICAL HISTORY: AMS 1 view chest x-ray Comparison: CR/SR - XR CHEST 2 VIEWS - 07/08/23 09:32 EDT Findings: No consolidation or effusion. Heart size is normal. No acute fracture. IMPRESSION: 1. No acute findings. This document has been electronically signed by: Rubio Jensen MD on 08/03/2025 00:20:31
[2025-08-02 21:59] VITALS: BP 148/90; PULSE 85; O2SAT 98
[2025-08-02 22:42] VITALS: BP 100/64; PULSE 64; RESP 18; O2SAT 94; BMI 25.1
--- NOTE | 2025-08-02 23:08 | ECG_ITS ---
Test Reason : DIZZINESS Blood Pressure : */* mmHG Vent. Rate : 61 BPM Atrial Rate : 61 BPM P-R Int : 186 ms QRS Dur : 90 ms QT Int : 422 ms P-R-T Axes : 34 40 45 degrees QTcB Int : 424 ms Normal sinus rhythm Normal ECG When compared with ECG of 31-Jul-2025 19:33, No significant change was found Referred By: Jenifer Farley Electronically Signed By: Alistair Arcos
[2025-08-02 23:37] LABS: Imm Gran Abs Auto 0.00 X10*3/uL (0.00-0.03); Imm Gran Pct Auto 0.0 % (0.0-0.4); MANUAL DIFF FLAG SCAN; NRBC Abs Auto 0.000 X10*3/uL (0.0-0.012); NRBC Pct Auto 0.0 /100WBC (0.0-0.2); PLT CLUMP 1; SCAN SMEAR FLAG 1
[2025-08-02 23:39] LABS: Hematocrit 34.4 % (42.0-52.0); Hemoglobin 11.4 g/dl (14.0-18.0); Lymphocytes Absolute Auto 1.5 X10*3/uL (1.2-4.9); Mean Corpuscular HGB Conc 33.1 g/dl (31.0-36.0); Mean Corpuscular Hemoglobin 30.5 pg (27.0-33.0); Mean Corpuscular Volume 92.0 fL (80.0-98.0); Red Blood Count 3.74 X10*6/uL (4.60-5.80)
[2025-08-02 23:40] LABS: White Blood Count 3.3 X10*3/uL (4.8-10.8)
[2025-08-02 23:53] LABS: Alanine Aminotransferase 51 U/L (0-40); Albumin Level 4.1 g/dL (3.5-5.0); Alkaline Phosphatase 74 U/L (39-117); Anion Gap 16 (12-20); Aspartate Amino Transferase 108 U/L (5-37); Blood Urea Nitrogen 6 mg/dL (9-16); Calcium 8.3 mg/dL (8.4-10.2); Carbon Dioxide 24 mmol/L (22-29); Chloride 107 mmol/L (96-108); Creatinine Clr Calc Pharmacy 146.5; Estimated Glomerular Filt Rate > 60; Lipase 81 U/L (8-78); Magnesium 1.9 mg/dL (1.6-2.6); Potassium 3.3 mmol/L (3.3-5.1); Sodium 144 mmol/L (135-145); Total Protein 7.8 g/dL (6.5-8.0)
[2025-08-03] VITALS: BP 145/88; PULSE 89; TEMP 35.6
[2025-08-03 00:01] LABS: Troponin-I High Sensitivity 4.3 ng/L (<3.5-35.0)
[2025-08-03 00:51] LABS: Platelet Count 124 X10*3/uL (160-400)
[2025-08-03 00:53] LABS: Cannabinoid Screen Urine Not Detected (Not Detect)
--- OUTSIDE RECORDS SUMMARY | 2025-08-03 01:00 | XMS_ITS | Encounter Summary ---
Author Organization [facility] Address [address] [place] [address] Phone Care Team Providers Care Underpresser Hand Name Role Phone Ramin Arnold MD Primary Care Provider [phone] Encounter Details Date Type Department Care Team ([facility] st Contact Info) Description 11/16/2024 Ophth Exam AMANDA Consult from [address] [address] Lit Price MD [address] [place] [address] [email or web address] Social History Tobacco Use Types Packs/Day Years [...] 11/16/2024 5:00 PM Ju Hines RN * [place] Suicide Severity Rating Scale (Screener/Recent Self-Report) Question [...] on filedocumented in this encounter Care Teams Underpresser Hand Relationship Specialty Start Date End Date Ramin Arnold MD [email or web address] PCP - General Family Medicine 05/19/20 documented as of this encounter Additional Source Comments The information contained in this document represents components of the legal health record. It is not the complete legal health record.[facility]
--- OUTSIDE RECORDS SUMMARY | 2025-08-03 01:00 | XMS_ITS | Encounter Summary ---
Author Organization [facility] Address [address] [place] [address] Phone Care Team Providers Care Medical Reviewer Name Role Phone Ramin Arnold MD Primary Care Provider [phone] Encounter Details Date Type Department Care Team (Late st Contact Info) Description 11/16/2024 Procedure [place] [facility] [address] [facility], [address]nd Floor, [address] [place] [address] Social History Tobacco Use Types Packs/Day Years [...] 11/16/2024 5:00 PM Ju Hines RN * [place] Suicide Severity Rating Scale (Screener/Recent Self-Report) Question [...] on filedocumented in this encounter Care Teams Medical Reviewer Relationship Specialty Start Date End Date Ramin Arnold MD PCP - General Family Medicine 05/19/20 documented as of this encounter Additional Source Comments The information contained in this document represents components of the legal health record. It is not the complete legal health record.[facility]
--- OUTSIDE RECORDS SUMMARY | 2025-08-03 01:00 | XMS_ITS | Encounter Summary ---
Author Organization [facility] Address [address] [place] [address] Phone Care Team Providers Care Incoming Inspector Name Role Phone Ramin Arnold MD Primary Care Provider [phone] Encounter Details Date Type Department Care Team (Late st Contact Info) Description 11/17/2024 Procedure Pass AMANDA [address] [facility] DEPT [address] [place] [address] Social History Tobacco Use Types Packs/Day Years [...] on filedocumented in this encounter Care Teams Incoming Inspector Relationship Specialty Start Date End Date Ramin Arnold MD [email or web address] PCP - General Family Medicine 05/19/20 documented as of this encounter Additional Source Comments The information contained in this document represents components of the legal health record. It is not the complete legal health record.[facility]
--- OUTSIDE RECORDS SUMMARY | 2025-08-03 01:00 | XMS_ITS | Encounter Summary ---
Author Organization [facility] Address [address] [place] [address] Phone Care Team Providers Care Tube Buffer Name Role Phone Ramin Arnold MD Primary Care Provider [phone] Encounter Details Date Type Department Care Team (Late st Contact Info) Description 11/16/2024 Ophth Exam AMANDA Oph Trauma [address] [place] [address] Laurence Coelho MD [address] [place] [id number] [email or web address] Social History Tobacco Use Types Packs/Day [...] 11/16/2024 5:00 PM Ju Hines RN * [place] Suicide Severity Rating Scale (Screener/Recent Self-Report) Question [...] on filedocumented in this encounter Care Teams Tube Buffer Relationship Specialty Start Date End Date Ramin Arnold MD [email or web address] PCP - General Family Medicine 05/19/20 documented as of this encounter Additional Source Comments The information contained in this document represents components of the legal health record. It is not the complete legal health record.[facility]
--- OUTSIDE RECORDS SUMMARY | 2025-08-03 01:01 | XMS_ITS | Encounter Summary ---
Author Organization [facility] Address [address] [place] [address] Phone Care Team Providers Care Stone Layout Marker Name Role Phone Ramin Arnold MD Primary Care Provider [phone] Encounter Details Date Type Department Care Team (Late st Contact Info) Description 05/21/2020 Transcribe Orders [facility] Specimen Processing [address] [place], [place] [id number] Ramin Arnold MD [address] [place] [address] [address], [address] [place] [address] [email or web address] COVID-19 ruled out (Primary Dx) Social History [...] 5:36 PM EDT) Specimen Source NASOPHARYNGEAL SWAB (SITE SUPERINTENDENT) [facility] COVID Testing Status Sent to [facility] Other 05/21/2020 5:36 PM EDT 05/21/2020 5:47 PM EDT us Ramin Arnold MD BODY FLUIDS AND STOOLS ORDERABLE S Final Result [facility] [address] [place] [address] documented in this encounter Visit Diagnoses Diagnosis COVID-19 ruled out- Primary documented in this encounter Additional Health Concerns Infection Onset Date Last Indicated Resolved Time CoV-Exposed Comment:Recent close contact 05/21/2020 05/21/2020 06/04/2020 1:23 AM EDT CoV-Exposed Comment:Recent close contact 06/04/2020 06/04/2020 06/18/2020 1:24 AM EDT CoV-Exposed Comment:Recent close contact 08/26/2020 08/26/2020 09/09/2020 1:24 AM EST documented as of this encounter Care Teams Stone Layout Marker Relationship Specialty Start Date End Date Ramin Arnold MD [email or web address] PCP - General Family Medicine 05/19/20 documented as of this encounter Additional Source Comments The information contained in this document represents components of the legal health record. It is not the complete legal health record.[facility]
--- OUTSIDE RECORDS SUMMARY | 2025-08-03 01:01 | XMS_ITS | Encounter Summary ---
Author Organization [facility] Address [address] [place] [address] Phone Care Team Providers Care Card Maker Name Role Phone Ramin Arnold MD Primary Care Provider [phone] Encounter Details Date Type Department Care Team (Late st Contact Info) Description 11/19/2024 Ophth Exam AMANDA Oph Trauma Main Reading [address] [place] [address] Laurence Coelho MD [address] [place] [address] [email or web address] Social History Tobacco Use Types [...] on filedocumented in this encounter Care Teams Card Maker Relationship Specialty Start Date End Date Ramin Arnold MD [email or web address] PCP - General Family Medicine 05/19/20 documented as of this encounter Additional Source Comments The information contained in this document represents components of the legal health record. It is not the complete legal health record.[facility]
--- OUTSIDE RECORDS SUMMARY | 2025-08-03 01:01 | XMS_ITS | Clinical Summary ---
Author Organization [facility] it Address [address] [place] [address] Care Team Providers Care Batch Operator Name Role Phone Unavailable Primary Care Provider [...]
--- OUTSIDE RECORDS SUMMARY | 2025-08-03 01:01 | XMS_ITS | Data Portability ---
Author Organization [facility], Main Office Address [address] [place] [address] Care Team Providers Care Machine Tracer Name Role Phone [facility] OTHER Assessment Encounter Date [...] Address Organization Details Recorded Time Alcohol dependence 67456452 Active 2019 Riri harman, [facility] 0 10:55:15 Alcohol dependence 06182353 Active 2019 Riri Espinal null, [facility] 0 10:55:21 Sinus bradycardia 73293597 Active 2019 Riri harman, [facility] 0 10:55:22 Asthma 752068711 Active 2019 Riri harman, [facility] [employer] [facility] 0 10:55:25 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, [address], [place], [address], [facility] [employer] 3 18:07:02 Asthenia 14353964 Active 2022 JESSICADOROTA HALEY, [facility] [address], [address], [place], [address], [facility] [employer] 3 18:07:05 Bradycardia 56418316 Active 2022 JESSICA HALEY, [facility] [address], [address], [place], [address], [facility] [employer] 3 18:07:11 Laboratory test result abnormal 286605716 Active 2022 JESSICADOROTA HALEY, [facility] [address], [address], [place], [address], [facility] [employer] 3 18:07:15 Problem Notes None recorded. Medical Equipment None Reported. Allergies Allergen ID Allergen Name Allergen Category Reaction Reaction Severity Criticality Documentation Date Start Date Code Code System Note Provider Name and Address Organization Details Recorded Time 14470 shellfish derived food,medi cation Not available Not available Not available 05/19/2020 Riri harman, [facility] [employer] 0 08:43:01 Medications Not known to be on any medication Vitals Date Recorded Heart rate Respiratory rate Body temperature Oxygen saturation Oxygen saturation in Arterial blood by Pulse oximetry Systolic And Diastolic Provider Name and Address Organization Details Last Updated DateTime 3 78 /min 18 /min 97.4 [degF] 99 % 99 % 115/67 mm[Hg] Dayana Sarmiento -Kierkla [address], [address], [place], [address], [facility] [employer] 3 10:21:31 Social History Question Answer Notes LastModified by Organizat ion Details LastModified Time Tobacco Smoking Status Current Every Day Smoker 2 a day MIKE REYNODLS [address], [address], [place], [address], [facility] 07/19/2023 17:16:49 Do You Have An [...] Do You Have A Medical Power Of Children'S Author? No Information not available 07/19/2023 What Was [...] anxious, or unable to sleep at night)? [id number] Information not available 07/19/2023 Family History Relationship [...] 25mcg/0.25 mL dose 2 completed Nicole harman [facility] 10/17/2023 11:43:55 Tdap 2 completed Nicole harman [facility] 01/22/2024 14:21:00 Td (adult), 5 Lf tetanus toxoid, preservative free, adsorbed 7 completed Nicole harman [facility] 01/22/2024 14:21:20 Td (adult), 5 Lf tetanus toxoid, preservative free, adsorbed 8 completed Nicole harman [facility] 01/22/2024 14:21:35 pneumococcal polysaccharide PPV23 8 completed Nicole harman [facility] 01/22/2024 14:21:54 pneumococcal polysaccharide PPV23 6 completed Nicole harman [facility] 01/22/2024 14:22:04 Influenza, adjuvanted, quadrivalent, PF 3 completed Nicole harman [place] [facility] 01/22/2024 14:23:02 Past Encounters Encounter ID Performer Location Encounter Start Date Encounter Closed Date Diagnosis/Indication Diagnosis SNOMED-CT Code Diagnosis ICD10 Code Diagnosis IMO Codes Diagnosis Note [id number] MIKE Chen [facility] on [address] [place] [address] 05/19/2020 08:42:26 05/29/2020 13:18:57 Alcohol dependence 02454469 F10.288 Hx of withdrawal seizuresFo lic acid 1 mg dailyThiam ine 100 mg dailyPT OT eval and treat Sinus bradycardia 740051 05 R00.1 Implanted rn cardiac cath in placeF/u with cardiology Monitor HR Asthma 418000496 J45.99 8 Monitor respirator y status Liver enzy mes level above reference range 036321794 R74.8 Secondary to heavy ETOH useRepeat and monitor [id number] Lois Multani MD [facility] on [address] [place] [address] 05/20/2020 07:06:00 05/29/2020 14:50:19 Alcohol dependence 86337202 F10.20 thiamine 100 mg dailyfolic acid 1 mg dailysocia l work fu to encourage ongoing support and treatment Asthenia 66976855 R53.1 PT/OTwill monitor Liver enzy mes level above reference range 561690830 R74.8 will monitor Sinus bradycardia 513995 05 R00.1 resolvedwi ll monitor [id number] MIKE Chen [facility] on [address] [place] [address] 05/26/2020 09:30:59 05/29/2020 13:59:21 Alcohol dependence 08490173 F10.288 Hx of withdrawal seizuresFo lic acid 1 mg dailyThiam ine 100 mg dailyNo sxs of withdrawal noted Sinus bradycardia 476220 05 R00.1 Implanted rn cardiac cath in placeF/u with cardiology Monitor HR-ranges 58-88 Asthma 539293458 J45.99 8 Monitor respirator y statusOn no medication s [id number] MIKE Chen [facility] on [address] [place] [address] 06/12/2020 08:31:05 06/16/2020 10:01:54 Alcohol dependence 23509955 F10.288 Hx of withdrawal seizuresFo lic acid 1 mg dailyThiam ine 100 mg dailyNo signs of withdrawal currently Sinus bradycardia 313702 05 R00.1 Implanted rn cardiac cath in placeF/u with cardiology Monitor HR Asthma 433228036 J45.99 8 Monitor respirator y status Liver enzy mes level above reference range 764964090 R74.8 Secondary to heavy ETOH useRepeat LFTs 06/15 [id number] Riri Espinal [facility] on [address] [place] [phone] 06/16/2020 11:47:30 06/18/2020 11:34:00 Alcohol dependence 25138771 F10.288 Hx of withdrawal seizuresFo lic acid 1 mg dailyThiam ine 100 mg dailyNo signs of withdrawal Encouraged to remain sober Sinus bradycardia 293636 05 R00.1 Implanted rn cardiac cath in placeRemai ns asymptomat ic F/u with cardiology Asthma 072552330 J45.99 8 No respirator y issues currentlyF /u with PCP Liver enzy mes level above reference range 214217576 R74.8 Secondary to heavy ETOH useNow resolved [id number] JESSICA HALEY [facility] on [address] [place] [id number] 07/19/2023 15:26:02 07/27/2023 10:51:11 Laboratory test result abnormal 347126278 R89.9 In acute care rhabdo, hypokalemi a, transamini tis, hypomagnes emia , thrombocyt openia, normocytic , metabolic acidosis , normocytic anemia likely related to etoh abuse,,tx with IVF and supplement al replacemen tmonitor labs Alcohol dependence 20793 003 F10.288 hx seizures with withdrawal witnessed clonic tonic seizurestr eated with ativan and phenobarbi talencoura ged abstinence SUDs referralmo nitor for seizure activityco ntinue thiamine 100 mg qdfolate [address] 666 mg tid Bradycardia 11081266 R00 .1 Hx of syncope with implantabl e loop recorderSB in acute care with pausescard iology and EPS consulted- ILR interrogat ed, showed no correlatio n of syncope and pauses, no need for PPM. ILR removed.re commending PSG outpatient to r/o RAND- referral paced in [facility] Harmful pa ttern of use of cocaine 51710855 F14.10 refer to SUDsencour aged abstinence provide supportive services /refer to [facility] 11346380 Z59.00 social studies teacher for support and services Asthenia 50777697 R53.1 impaired gait/weakn essPT/OT evalMorse 10 Asthma 192432371 J45.99 8 hxnot currently on medication smonitor for resp/clini aldair changes [id number] Lois Multani MD [facility] on [address] [place] [phone] 07/21/2023 05:52:30 07/27/2023 11:40:25 Asthenia 06963834 R53.1 PT/OTwill monitor Alcohol dependence 36074 003 F10.288 thiamine 100 mg dailyfolic acid 1 mg dailyacamp rosate 666 mg tldsocial work fu to encourage ongoing support and treatment Bradycardia 34542222 R00 .1 not associated with syncopewil l monitor History of seizure due to alcohol withdrawal 3079026007 33064 Z86.69 completed withdrawal protocolwi ll monitor [id number] MIKE REYNOLDS [facility] on [address] [place] [phone] 07/24/2023 09:10:19 07/31/2023 15:03:51 Alcohol dependence 97695992 F10.288 there has been no seizure activity reported. hx seizures with withdrawal witnessed clonic tonic seizurestr eated with ativan and phenobarbi talencoura ged abstinence SUDs referralmo nitor for seizure activityco ntinue thiamine 100 mg qdfolate [address] 666 mg tid Laboratory test result abnormal 066245847 R89.9 In acute care rhabdo, hypokalemi a, transamini tis, hypomagnes emia , thrombocyt openia, normocytic , metabolic acidosis , normocytic anemia likely related to etoh abuse,,tx with IVF and supplement al replacemen tmonitor labs Bradycardia 60899581 R00 .1 denies any cardiac sx today. apical rate 70 Hx of syncope with implantabl e loop recorderSB in acute care with pausescard iology and EPS consulted- ILR interrogat ed, showed no correlatio n of syncope and pauses, no need for PPM. ILR removed.re commending PSG outpatient to r/o RAND- referral paced in [facility] Harmful pa ttern of use of cocaine 42295315 F14.10 refer to SUDsencour aged abstinence provide supportive services /refer to Homeless 19086013 Z59.00 social studies teacher for support and services Asthenia 25068733 R53.1 plan for OTimpaired gait/weakn ess Pineda 10 Asthma 782688988 J45.99 8 hxnot currently on medication smonitor for resp/clini aldair changes [id number] MIKE REYNOLDS [facility] on [address] [place] [phone] 07/26/2023 10:31:42 07/31/2023 15:13:33 Alcohol dependence 07053091 F10.288 there has been no seizure activity reported. hx seizures with withdrawal witnessed clonic tonic seizurestr eated with ativan and phenobarbi talencoura ged abstinence SUDs referralmo nitor for seizure activityco ntinue thiamine 100 mg qdfolate [address] 666 mg tid Bradycardia 04400383 R00 .1 HR 69Hx of syncope with implantabl e loop recorderSB in acute care with pausescard iology and EPS consulted- ILR interrogat ed, showed no correlatio n of syncope and pauses, no need for PPM. ILR removed.re commending PSG outpatient to r/o RAND- referral paced in [facility] Harmful pa ttern of use of cocaine 88132891 F14.10 refer to SUDsencour aged abstinence provide supportive services /refer to [facility] 91577352 Z59.00 social studies teacher for support and services Asthenia 78566119 R53.1 plan for OTimpaired gait/weakn ess10/11: he is ambulating with steady gait independen tly. Asthma 175173567 J45.99 8 hxnot currently on medication smonitor for resp/clini aldair changes [id number] MIKE REYNOLDS [facility] on [address] [place] [phone] 08/01/2023 09:31:41 08/08/2023 09:26:07 Alcohol dependence 10956986 F10.288 there has been no seizure activity reported. hx seizures with withdrawal witnessed clonic tonic seizurestr eated with ativan and phenobarbi talencoura ged abstinence SUDs referralmo nitor for seizure activityco ntinue thiamine 100 mg qdfolate [address] 666 mg tid Bradycardia 71973896 R00 .1 HR 69Hx of syncope with implantabl e loop recorderSB in acute care with pausescard iology and EPS consulted- ILR interrogat ed, showed no correlatio n of syncope and pauses, no need for PPM. ILR removed.re commending PSG outpatient to r/o RAND- referral paced in [facility] Harmful pa ttern of use of cocaine 91477213 F14.10 refer to SUDsencour aged abstinence provide supportive services /refer to Homeless 00401887 Z59.00 social studies teacher for support and services Asthenia 77655014 R53.1 plan for OTimpaired gait/weakn ess07/26: he is ambulating with steady gait independen tly. Asthma 130484676 J45.99 8 hxnot currently on medication smonitor for resp/clini aldair changes [id number] MIKE REYNOLDS [facility] on [address] [place] [address] 08/04/2023 08:03:49 08/08/2023 11:32:51 Alcohol dependence 79729053 F10.288 08/04: there has been no seizure activity reported. hx seizures with withdrawal witnessed clonic tonic seizurestr eated with ativan and phenobarbi talencoura ged abstinence SUDs referralmo nitor for seizure activityco ntinue thiamine 100 mg qdfolate [address] 666 mg tid Bradycardia 30913370 R00 .1 HR 69Hx of syncope with implantabl e loop recorderSB in acute care with pausescard iology and EPS consulted- ILR interrogat ed, showed no correlatio n of syncope and pauses, no need for PPM. ILR removed.re commending PSG outpatient to r/o RAND- referral paced in [facility] Harmful pa ttern of use of cocaine 92120155 F14.10 refer to SUDsencour aged abstinence provide supportive services /refer to Homeless 30091711 Z59.00 social studies teacher for support and services Asthenia 05371053 R53.1 plan for OTimpaired gait/weakn ess07/26: he is ambulating with steady gait independen tly.08/04: meeting goals with therapy, independen t with care. Asthma 357375682 J45.99 8 hxnot currently on medication smonitor for resp/clini aldair changes [id number] MIKE REYNOLDS [facility] on [address] [place] [address] 08/10/2023 08:14:16 08/17/2023 15:56:48 Alcohol dependence 74540130 F10.288 hx seizures with withdrawal witnessed clonic tonic seizurestr eated with ativan and phenobarbi talencoura ged abstinence SUDs referralmo nitor for seizure activityco ntinue thiamine 100 mg qdfolate [address] 666 mg tid Bradycardia 40819983 R00 .1 Hx of syncope with implantabl e loop recorderSB in acute care with pausescard iology and EPS consulted- ILR interrogat ed, showed no correlatio n of syncope and pauses, no need for PPM. ILR removed.re commending PSG outpatient to r/o RAND- referral paced in [facility] Harmful pa ttern of use of cocaine 35121268 F14.10 refer to SUDsencour aged abstinence provide supportive services /refer to [facility] Homeless 21588672 Z59.00 social studies teacher for support and services Asthenia 45129129 R53.1 08/09/2023 : therapy goals met.He is independen t on on unit. Asthma 971465733 J45.99 8 hxnot currently on medication smonitor for resp/clini aldair changes [id number] MIKE REYNOLDS [facility] on [address] [place] [id number] 08/16/2023 07:01:21 08/18/2023 08:46:19 Alcohol dependence 66407412 F10.288 08/16: There has been no reported seizurehx seizures with withdrawal witnessed clonic tonic seizurestr eated with ativan and phenobarbi talencoura ged abstinence SUDs referralmo nitor for seizure activityco ntinue thiamine 100 mg qdfolate [address] 666 mg tid Asthma 183185328 J45.99 8 08/16: Denies any shortness of breath or resp. issuesnot currently on medication smonitor for resp/clini aldair changes [id number] Dayana Sarmiento Lo [facility] on [address] [place] [address] 08/25/2023 10:10:49 08/28/2023 11:33:00 Alcohol dependence 24074779 F10.288 08/16: There has been no reported seizurehx seizures with withdrawal witnessed clonic tonic seizurestr eated with ativan and phenobarbi talencoura ged abstinence SUDs referralmo nitor for seizure activityco ntinue thiamine 100 mg qdfolate [address] 666 mg tid Asthma 009281418 J45.99 8 08/16: Denies any shortness of breath or resp. issuesnot currently on medication smonitor for resp/clini aldair changes Harmful pa ttern of use of cocaine 98802934 F14.10 follow up with outpatient carehas not used during SNF stay Homeless 68998833 Z59.00 discharge to halfway Sinus bradycardia 249368 05 R00.1 resolved, HR 78 today Laboratory test result abnormal 509092766 R89.9 resolved, follow up with outpt PCP next week Health Concerns Section Related Observation LastModified by Organization Detai ls LastModified Time None Recorded Concern Status LastModified by Organization Details LastModified Time None Recorded Advance Directives Directive Y: Payers Insurance Date Sequence Insurance Name Policy Number Policy Hobbs Covered Member ID Hobbs Member ID Guarantor Name 03/21/2024 1 [place] [facility] [id number] [facility] Notes Date Note Type Note Provider Name and Address Organization Details Recorded Time 08/01/2023 text/html ROS as noted in the HPI Seen today for acute rounding visit. Past medical history remarkable for alcohol abuse dependency with withdrawal seizures, syncope with implantable loop recorder in place. Presented to [facility] on 07/08/23 from outside source with both unwitnessed and witnessed seizure; on arrival to ED he had another witnessed tonic clonic seizure associated with post ictal. He was treated with IV ativan and started on phenobarbital protocol. He was admitted for ETOH withdrawal, Rhabdo and and found to have sinus pauses. Evaluated by therapy for weakness, [facility] care and rehab. On exam today he is stable, there is no acute nursing concerns. progressing toward therapy goals. MIKE REYNOLDS [address], [address], [place], [address], [facility] [employer] [facility] 08/01/2023 14:12:08 08/04/2023 text/html ROS as noted in the HPI Seen today for acute rounding visit. Past medical history remarkable for alcohol abuse dependency with withdrawal seizures, syncope with implantable loop recorder in place. Presented to [facility] on 07/08/23 from outside source with both unwitnessed and witnessed seizure; on arrival to ED he had another witnessed tonic clonic seizure associated with post ictal. He was treated with IV ativan and started on phenobarbital protocol. He was admitted for ETOH withdrawal, Rhabdo and and found to have sinus pauses. Evaluated by therapy for weakness, [facility] care and rehab. He continue to be medically stable, he has been working with therapy, as of note he has progressed to independent for adl no adaptive device required. On exam he noted ambulating on unit with steady gait, he tells me that he is ok, there is no acute nursing concerns. MIKE REYNOLDS [address], [address], [place], [address], [facility] [employer] [facility] 08/04/2023 13:02:43 08/10/2023 text/html ROS as noted in the HPI Duarte is seen today for acute rounding visit. Past medical history of ETOH abuse with withdrawal seizures, cocaine abuse, asthma.He has been stable, he offers no complaints. There is no acute nursing concerns. MIKE REYNOLDS 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 Past medical history of ETOH abuse with withdrawal seizures, cocaine abuse, asthma. Duarte is alert and verbal in NAD. He has been stable seen his last rounding visit, there is no complaints, there is no acute nursing concerns. MIKE REYNOLDS [address], [address], [place], [address], [facility] 08/16/2023 11:03:33 08/25/2023 text/html ROS as noted in the HPI Duarte is seen today for discharge. Past medical history of ETOH abuse with withdrawal seizures, cocaine abuse, asthma. Duarte is alert and verbal in NAD. He has been stable seen his last rounding visit, there is no complaints, there is no acute nursing concerns. Dayana valle [address], [address], [place], [address], [facility] 08/25/2023 10:26:05
[2025-08-03 01:10] LABS: COVID-19 Test Negative (Negative); IDNOW Serial# 152EDE1D; IDNOW Serial# 16C4AD1C; Influenza B2 Negative (Negative)
[2025-08-03 07:34] VITALS: BP 115/74; PULSE 74; RESP 16; TEMP 36.2; O2SAT 95
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
[2025-08-03 08:38] VITALS: BP 115/74; PULSE 74; RESP 16; TEMP 36.2; O2SAT 95
== END 2025-08-03 08:39 | disposition home or self-care (01) ==
PROVIDERS: Emergency Provider Emergency Medicine
DX: R11.0 Nausea (principal); R42 Dizziness and giddiness; F10.129 Alcohol abuse with intoxication, unspecified; Y90.8 Blood alcohol level of 240 mg/100 ml or more; F14.10 Cocaine abuse, uncomplicated; Z91.81 History of falling
CPT/HCPCS: 36415; 70450; 71045; 72125; 80053; 80307; 82550; 83690; 83735; 84484; 85025; 87502; 87635; 93005; 99285

== ENCOUNTER → 2025-08-02 23:08 | Outpatient (BNV) | payer MEDICAID, SELFPAY | PROVIDERS: Emergency Provider Emergency Medicine; Visit Provider Internal Medicine Cardiovascular Disease | DX: R42 Dizziness and giddiness (principal) | CPT/HCPCS: 93010 ==

== ENCOUNTER → 2025-08-02 23:08 | Outpatient (BNV) | payer MEDICAID, SELFPAY | PROVIDERS: Emergency Provider Emergency Medicine; Visit Provider Radiology Diagnostic Radiology | DX: R41.82 Altered mental status, unspecified (principal) | CPT/HCPCS: 71045 ==

== ENCOUNTER → 2025-08-03 00:07 | Outpatient (BNV) | payer MEDICAID, SELFPAY | PROVIDERS: Emergency Provider Emergency Medicine; Visit Provider Radiology Diagnostic Radiology | DX: M50.322 Other cervical disc degeneration at C5-C6 level (principal); R42 Dizziness and giddiness | CPT/HCPCS: 70450; 72125 ==

== ENCOUNTER 2025-08-07 16:56 | Emergency (ER) | payer MEDICAID, SELFPAY ==
--- NOTE | ~2025-08-07 | CT_ITS ---
CLINICAL HISTORY: drunk, fall CT head without contrast Comparison: CT/REG/SR - CT HEAD/BRAIN WO IV CON - 08/03/25 03:27 EDT Findings: No intra-axial mass, midline shift, hydrocephalus, or acute hemorrhage. 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 Mild atrophy like change. Similar to prior. The visualized paranasal sinuses and mastoid air cells are normal. The orbits are unremarkable. No skull fracture. IMPRESSION: 1. No acute intracranial findings. This document has been electronically signed by: Itz Lucas MD on 08/07/2025 20:45:48
--- NOTE | ~2025-08-07 | CT_ITS ---
CLINICAL HISTORY: drunk fall CT cervical spine without contrast Comparison: CT/SR - CT CERVICAL SPINE WO IV CON - 08/03/25 03:27 EDT Findings: Vertebral alignment is within normal limits. Mild C5-C6 disc disease. No significant stenotic disease. No acute fracture or malalignment. No acute findings on limited view of the intracranial contents. Left inferior thyroid nodules up to 1.3 cm. These do not meet criteria for further characterization. Right posterior lower cervical subcutaneous lipoma 2.6 cm, no change, image 196:12. Mild dependent atelectasis in the upper lungs. IMPRESSION: Additional nonacute findings as above. This document has been electronically signed by: Itz Lucas MD on 08/07/2025 20:42:24
[2025-08-07 17:04] VITALS: BP 152/78; PULSE 70; O2SAT 98
[2025-08-07 17:07] VITALS: BP 136/93; PULSE 69; RESP 18; TEMP 36.8; O2SAT 96; BMI 27.0
[2025-08-07 17:12] VITALS: BP 136/93; PULSE 69; RESP 18; TEMP 36.8; O2SAT 96
--- NOTE | 2025-08-07 17:29 | PC.NURSE ---
40 M presents to ED d/t alcohol intoxication, doing all the drugs and having a fall. Pt denies head strike with fall, c/o general body pain. Pt also sts he is suicidal. A+Ox2-3, anxious, cooperative. RR even and unlabored, denies CP or SOB. Pt changed over by security. Pt is blind, has light sensitivity to eyes so was allowed to keep sunglasses.
[2025-08-07 17:48] LABS: Cannabinoid Screen Urine Not Detected (Not Detect)
[2025-08-07 18:12] VITALS: BP 130/74; PULSE 70; RESP 16; TEMP 36.9; O2SAT 96
--- NOTE | 2025-08-07 18:20 | ECG_ITS ---
Test Reason : indigestion Blood Pressure : */* mmHG Vent. Rate : 55 BPM Atrial Rate : 55 BPM P-R Int : 184 ms QRS Dur : 92 ms QT Int : 422 ms P-R-T Axes : 36 47 58 degrees QTcB Int : 403 ms Sinus bradycardia Otherwise normal ECG When compared with ECG of 02-Aug-2025 23:25, No significant change was found Referred By: Louann Montalvo Electronically Signed By: TIFFANY FELIZ MD
[2025-08-07 18:27] LABS: MANUAL DIFF FLAG NO
[2025-08-07 18:34] LABS: Appearance Urine Clear; Glucose Urine UA Negative (Negative); PH 7.0 (5.0-9.0); Specific Gravity - Urine <= 1.005 (1.005-1.025)
--- NOTE | 2025-08-07 18:36 | PC.NURSE ---
Attempted to start IV x 2, unsuccessful.
[2025-08-07 18:45] LABS: Alanine Aminotransferase 64 U/L (0-40); Albumin Level 4.2 g/dL (3.5-5.0); Alkaline Phosphatase 107 U/L (39-117); Anion Gap 16 (12-20); Aspartate Amino Transferase 148 U/L (5-37); Blood Urea Nitrogen 5 mg/dL (9-16); Calcium 8.2 mg/dL (8.4-10.2); Carbon Dioxide 28 mmol/L (22-29); Chloride 109 mmol/L (96-108); Creatinine Clr Calc Pharmacy 160.9; Estimated Glomerular Filt Rate > 60; Magnesium 2.0 mg/dL (1.6-2.6); Potassium 3.6 mmol/L (3.3-5.1); Sodium 149 mmol/L (135-145); Total Protein 8.2 g/dL (6.5-8.0)
[2025-08-07 18:46] LABS: Acetaminophen LAB < 3 mcg/mL (<30); Salicylate < 5.0 mg/dL (15-30)
[2025-08-07 19:02] LABS: Hematocrit 35.3 % (42.0-52.0); Hemoglobin 11.8 g/dl (14.0-18.0); Imm Gran Abs Auto 0.00 X10*3/uL (0.00-0.03); Imm Gran Pct Auto 0.0 % (0.0-0.4); Lymphocytes Absolute Auto 1.2 X10*3/uL (1.2-4.9); Mean Corpuscular HGB Conc 33.4 g/dl (31.0-36.0); Mean Corpuscular Hemoglobin 31.2 pg (27.0-33.0); Mean Corpuscular Volume 93.4 fL (80.0-98.0); NRBC Abs Auto 0.000 X10*3/uL (0.0-0.012); NRBC Pct Auto 0.0 /100WBC (0.0-0.2); Platelet Count 114 X10*3/uL (160-400); Red Blood Count 3.78 X10*6/uL (4.60-5.80); SCAN SMEAR FLAG 1
--- NOTE | 2025-08-07 19:13 | MHC.EDTECH ---
@4623 this tech spoke with the lab CPK will be added to previous CMP that was sent to lab
[2025-08-07 19:24] LABS: White Blood Count 2.3 X10*3/uL (4.8-10.8)
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
--- OUTSIDE RECORDS SUMMARY | 2025-08-07 19:39 | XMS_ITS | Encounter Summary ---
Author Organization [facility] Address [address] [place] [phone] Phone Care Team Providers Care Assembler Bicycle Name Role Phone Ramin Arnold MD Primary Care Provider [phone] Encounter Details Date Type Department Care Team (Late st Contact Info) Description 11/16/2024 Ophth Exam AMANDA [facility] [address] [place] [address] Laurence Coelho MD [address] [place] [id number] [email or web address] Social History Tobacco Use Types Packs/Day [...] 11/16/2024 5:00 PM Ju Hines RN * [place] Suicide Severity Rating Scale (Screener/Recent Self-Report) Question [...] on filedocumented in this encounter Care Teams Assembler Bicycle Relationship Specialty Start Date End Date Ramin Arnold MD [email or web address] PCP - General Family Medicine 05/19/20 documented as of this encounter Additional Source Comments The information contained in this document represents components of the legal health record. It is not the complete legal health record.[facility]
--- OUTSIDE RECORDS SUMMARY | 2025-08-07 19:39 | XMS_ITS | Encounter Summary ---
Author Organization [facility] Address [address] [place] [phone] Phone Care Team Providers Care Global Mobility Specialist Name Role Phone Ramin Arnold MD Primary Care Provider [phone] Encounter Details Date Type Department Care Team ([facility] st Contact Info) Description 11/16/2024 Ophth Exam [facility] Consult from [address] [address] Lit Price MD [address] [place] [id number] [email or web address] Social History Tobacco Use Types Packs/Day Years [...] 11/16/2024 5:00 PM Ju Hines RN * [place] Suicide Severity Rating Scale (Screener/Recent Self-Report) Question [...] on filedocumented in this encounter Care Teams Global Mobility Specialist Relationship Specialty Start Date End Date Ramin Arnold MD [email or web address] PCP - General Family Medicine 05/19/20 documented as of this encounter Additional Source Comments The information contained in this document represents components of the legal health record. It is not the complete legal health record.[facility]
--- OUTSIDE RECORDS SUMMARY | 2025-08-07 19:39 | XMS_ITS | Encounter Summary ---
Author Organization [facility] Address [address] [place] [phone] Phone Care Team Providers Care Small Animal Caretaker Name Role Phone Ramin Arnold MD Primary Care Provider [phone] Encounter Details Date Type Department Care Team (Late st Contact Info) Description 11/17/2024 Procedure Pass [facility] [address] [facility] DEPT [address] [place] [address] Social History Tobacco Use Types Packs/Day Years [...] on filedocumented in this encounter Care Teams Small Animal Caretaker Relationship Specialty Start Date End Date Ramin Arnold MD [email or web address] PCP - General Family Medicine 05/19/20 documented as of this encounter Additional Source Comments The information contained in this document represents components of the legal health record. It is not the complete legal health record.[facility]
--- OUTSIDE RECORDS SUMMARY | 2025-08-07 19:40 | XMS_ITS | Encounter Summary ---
Author Organization [facility] Address [address] [place] [address] Phone Care Team Providers Care City Auditor Name Role Phone Ramin Arnold MD Primary Care Provider Encounter Details Date Type Department Care Team (Late st Contact Info) Description 11/16/2024 Procedure Pass [facility] [place] [address] [facility], [address]nd Floor, [address] [place] [address] Social History Tobacco Use Types Packs/Day Years [...] 11/16/2024 5:00 PM Ju Hines RN * [place] Suicide Severity Rating Scale (Screener/Recent Self-Report) Question [...] on filedocumented in this encounter Care Teams City Auditor Relationship Specialty Start Date End Date Ramin Arnold MD PCP - General Family Medicine 05/19/20 documented as of this encounter Additional Source Comments The information contained in this document represents components of the legal health record. It is not the complete legal health record.[facility]
--- OUTSIDE RECORDS SUMMARY | 2025-08-07 19:40 | XMS_ITS | Data Portability ---
Author Organization [facility], Main Office Address [address] [place] [address] Care Team Providers Care Air Tube Releaser Name Role Phone [facility] OTHER Assessment Encounter Date Assessment [...] Address Organization Details Recorded Time Alcohol dependence 68300655 Active 2019 Riri harman, [facility] 0 10:55:15 Alcohol dependence 51643665 Active 2019 Riri Espinal null, [facility] 0 10:55:21 Sinus bradycardia 83179792 Active 2019 Riri harman, [facility] 0 10:55:22 Asthma 699854035 Active 2019 Riri harman, [facility] [facility] 0 10:55:25 Harmful pattern of use of cocaine 51972409 Active 2022 JESSICADOROTA HALEY, [employer] [address] , [address], [place], [address], [facility] 3 17:51:39 Homeless 11908318 Active 2022 JESSICADOROTA HALEY, [facility] [address], [address], [place], [address], [facility] [employer] 3 18:07:02 Asthenia 14845613 Active 2022 JESSICADOROTA HALEY, [facility] [address], [address], [place], [address], [facility] [employer] 3 18:07:05 Bradycardia 46717204 Active 2022 JESSICA HALEY, [facility] [address], [address], [place], [address], [facility] [employer] 3 18:07:11 Laboratory test result abnormal 029824227 Active 2022 JESSICADOROTA HALEY, [facility] [address], [address], [place], [address], [facility] [employer] 3 18:07:15 Problem Notes None recorded. Medical Equipment None Reported. Allergies Allergen ID Allergen Name Allergen Category Reaction Reaction Severity Criticality Documentation Date Start Date Code Code System Note Provider Name and Address Organization Details Recorded Time 99704 shellfish derived food,medi cation Not available Not available Not available 05/19/2020 Riri harman, [facility] [employer] [facility] 0 08:43:01 Medications Not known to be on any medication Vitals Date Recorded Heart rate Respiratory rate Body temperature Oxygen saturation Oxygen saturation in Arterial blood by Pulse oximetry Systolic And Diastolic Provider Name and Address Organization Details Last Updated DateTime 3 78 /min 18 /min 97.4 [degF] 99 % 99 % 115/67 mm[Hg] Dayana Sarmiento -Kierkla [address], [address], [place], [address], [facility] [employer] [facility] 3 10:21:31 Social History Question Answer Notes LastModified by Organizat ion Details LastModified Time Tobacco Smoking Status Current Every Day Smoker 2 a day MIKE REYNOLDS [address], [address], [place], [address], [facility] 07/19/2023 [...] Do You Have A Medical Power Of Senior Piping Designer? No Information not available 07/19/2023 What Was [...] anxious, or unable to sleep at night)? [id number] Information not available 07/19/2023 Family History Relationship [...] 25mcg/0.25 mL dose 2 completed Nicole harman [facility] 10/17/2023 11:43:55 Tdap 2 completed Nicole harman [facility] 01/22/2024 14:21:00 Td (adult), 5 Lf tetanus toxoid, preservative free, adsorbed 7 completed Nicole harman [facility] 01/22/2024 14:21:20 Td (adult), 5 Lf tetanus toxoid, preservative free, adsorbed 8 completed Nicole harman [facility] 01/22/2024 14:21:35 pneumococcal polysaccharide PPV23 8 completed Nicole harman [facility] 01/22/2024 14:21:54 pneumococcal polysaccharide PPV23 6 completed Nicole harman [facility] 01/22/2024 14:22:04 Influenza, adjuvanted, quadrivalent, PF 3 completed Nicole harman [facility] 01/22/2024 14:23:02 Past Encounters Encounter ID Performer Location Encounter Start Date Encounter Closed Date Diagnosis/Indication Diagnosis SNOMED-CT Code Diagnosis ICD10 Code Diagnosis IMO Codes Diagnosis Note [id number] MIKE Chen [facility] on [address] [place] [address] 05/19/2020 08:42:26 05/29/2020 13:18:57 Alcohol dependence 31753145 F10.288 Hx of withdrawal seizuresFo lic acid 1 mg dailyThiam ine 100 mg dailyPT OT eval and treat Sinus bradycardia 201900 05 R00.1 Implanted quality assurance monitor body in placeF/u with cardiology Monitor HR Asthma 323546322 J45.99 8 Monitor respirator y status Liver enzy mes level above reference range 463023286 R74.8 Secondary to heavy ETOH useRepeat and monitor [id number] Lois Multani MD [facility] on [address] [place] [address] 05/20/2020 07:06:00 05/29/2020 14:50:19 Alcohol dependence 73259256 F10.20 thiamine 100 mg dailyfolic acid 1 mg dailysocia l work fu to encourage ongoing support and treatment Asthenia 10785164 R53.1 PT/OTwill monitor Liver enzy mes level above reference range 989704566 R74.8 will monitor Sinus bradycardia 607491 05 R00.1 resolvedwi ll monitor [id number] MIKE Chen [facility] on [address] [place] [address] 05/26/2020 09:30:59 05/29/2020 13:59:21 Alcohol dependence 15504599 F10.288 Hx of withdrawal seizuresFo lic acid 1 mg dailyThiam ine 100 mg dailyNo sxs of withdrawal noted Sinus bradycardia 446971 05 R00.1 Implanted quality assurance monitor body in placeF/u with cardiology Monitor HR-ranges 58-88 Asthma 096892725 J45.99 8 Monitor respirator y statusOn no medication s [id number] MIKE Chen [facility] on [address] [place] [address] 06/12/2020 08:31:05 06/16/2020 10:01:54 Alcohol dependence 74673719 F10.288 Hx of withdrawal seizuresFo lic acid 1 mg dailyThiam ine 100 mg dailyNo signs of withdrawal currently Sinus bradycardia 776408 05 R00.1 Implanted quality assurance monitor body in placeF/u with cardiology Monitor HR Asthma 374184203 J45.99 8 Monitor respirator y status Liver enzy mes level above reference range 866614768 R74.8 Secondary to heavy ETOH useRepeat LFTs 06/15 [id number] Riri Espinal [facility] on [address] [place] [address] 06/16/2020 11:47:30 06/18/2020 11:34:00 Alcohol dependence 42349501 F10.288 Hx of withdrawal seizuresFo lic acid 1 mg dailyThiam ine 100 mg dailyNo signs of withdrawal Encouraged to remain sober Sinus bradycardia 415116 05 R00.1 Implanted quality assurance monitor body in placeRemai ns asymptomat ic F/u with cardiology Asthma 558165710 J45.99 8 No respirator y issues currentlyF /u with PCP Liver enzy mes level above reference range 942142013 R74.8 Secondary to heavy ETOH useNow resolved [id number] JESSICA HALEY [facility] on [address] [place] [address] 07/19/2023 15:26:02 07/27/2023 10:51:11 Laboratory test result abnormal 055861825 R89.9 In acute care rhabdo, hypokalemi a, transamini tis, hypomagnes emia , thrombocyt openia, normocytic , metabolic acidosis , normocytic anemia likely related to etoh abuse,,tx with IVF and supplement al replacemen tmonitor labs Alcohol dependence 31464 003 F10.288 hx seizures with withdrawal witnessed clonic tonic seizurestr eated with ativan and phenobarbi talencoura ged abstinence SUDs referralmo nitor for seizure activityco ntinue thiamine 100 mg qdfolate [address] 666 mg tid Bradycardia 29867274 R00 .1 Hx of syncope with implantabl e loop recorderSB in acute care with pausescard iology and EPS consulted- ILR interrogat ed, showed no correlatio n of syncope and pauses, no need for PPM. ILR removed.re commending PSG outpatient to r/o [facility]- referral paced in [facility] Harmful pa ttern of use of cocaine 38935389 F14.10 refer to SUDsencour aged abstinence provide supportive services /refer to [facility] Homeless 92716935 Z59.00 environmental services project manager for support and services Asthenia 74208239 R53.1 impaired gait/weakn essPT/OT evalMorse 10 Asthma 656859253 J45.99 8 hxnot currently on medication smonitor for resp/clini aldair changes [id number] Lois Multani MD [facility] on [address] [place] [id number] 07/21/2023 05:52:30 07/27/2023 11:40:25 Asthenia 95875543 R53.1 PT/OTwill monitor Alcohol dependence 02854 003 F10.288 thiamine 100 mg dailyfolic acid 1 mg dailyacamp rosate 666 mg tldsocial work fu to encourage ongoing support and treatment Bradycardia 29340927 R00 .1 not associated with syncopewil l monitor History of seizure due to alcohol withdrawal 3759362617 40034 Z86.69 completed withdrawal protocolwi ll monitor [id number] MIKE REYNOLDS [facility] on [address] [place] [id number] 07/24/2023 09:10:19 07/31/2023 15:03:51 Alcohol dependence 43950494 F10.288 there has been no seizure activity reported. hx seizures with withdrawal witnessed clonic tonic seizurestr eated with ativan and phenobarbi talencoura ged abstinence SUDs referralmo nitor for seizure activityco ntinue thiamine 100 mg qdfolate [address] 666 mg tid Laboratory test result abnormal 808204284 R89.9 In acute care rhabdo, hypokalemi a, transamini tis, hypomagnes emia , thrombocyt openia, normocytic , metabolic acidosis , normocytic anemia likely related to etoh abuse,,tx with IVF and supplement al replacemen tmonitor labs Bradycardia 82293166 R00 .1 denies any cardiac sx today. apical rate 70 Hx of syncope with implantabl e loop recorderSB in acute care with pausescard iology and EPS consulted- ILR interrogat ed, showed no correlatio n of syncope and pauses, no need for PPM. ILR removed.re commending PSG outpatient to r/o [facility]- referral paced in [facility] Harmful pa ttern of use of cocaine 75473547 F14.10 refer to SUDsencour aged abstinence provide supportive services /refer to Homeless 84002156 Z59.00 environmental services project manager for support and services Asthenia 94608540 R53.1 plan for OTimpaired gait/weakn ess Pineda 10 Asthma 859468282 J45.99 8 hxnot currently on medication smonitor for resp/clini aldair changes [id number] MIKE REYNOLDS [facility] on [address] [place] [id number] 07/26/2023 10:31:42 07/31/2023 15:13:33 Alcohol dependence 45799856 F10.288 there has been no seizure activity reported. hx seizures with withdrawal witnessed clonic tonic seizurestr eated with ativan and phenobarbi talencoura ged abstinence SUDs referralmo nitor for seizure activityco ntinue thiamine 100 mg qdfolate [address] 666 mg tid Bradycardia 34818005 R00 .1 HR 69Hx of syncope with implantabl e loop recorderSB in acute care with pausescard iology and EPS consulted- ILR interrogat ed, showed no correlatio n of syncope and pauses, no need for PPM. ILR removed.re commending PSG outpatient to r/o R[facility]- referral paced in [facility] Harmful pa ttern of use of cocaine 51233654 F14.10 refer to SUDsencour aged abstinence provide supportive services /refer to [facility] 79480790 Z59.00 environmental services project manager for support and services Asthenia 15836888 R53.1 plan for OTimpaired gait/weakn ess10/11: he is ambulating with steady gait independen tly. Asthma 668017833 J45.99 8 hxnot currently on medication smonitor for resp/clini aldair changes [id number] MIKE REYNOLDS [facility] on [address] [place] [id number] 08/01/2023 09:31:41 08/08/2023 09:26:07 Alcohol dependence 69468308 F10.288 there has been no seizure activity reported. hx seizures with withdrawal witnessed clonic tonic seizurestr eated with ativan and phenobarbi talencoura ged abstinence SUDs referralmo nitor for seizure activityco ntinue thiamine 100 mg qdfolate [address] 666 mg tid Bradycardia 56817816 R00 .1 HR 69Hx of syncope with implantabl e loop recorderSB in acute care with pausescard iology and EPS consulted- ILR interrogat ed, showed no correlatio n of syncope and pauses, no need for PPM. ILR removed.re commending PSG outpatient to r/o R[facility]- referral paced in [facility] Harmful pa ttern of use of cocaine 50278103 F14.10 refer to SUDsencour aged abstinence provide supportive services /refer to Homeless 70439897 Z59.00 environmental services project manager for support and services Asthenia 61347198 R53.1 plan for OTimpaired gait/weakn ess07/26: he is ambulating with steady gait independen tly. Asthma 393322656 J45.99 8 hxnot currently on medication smonitor for resp/clini aldair changes [id number] MIKE REYNOLDS [facility] on [address] [place] [address] 08/04/2023 08:03:49 08/08/2023 11:32:51 Alcohol dependence 35471510 F10.288 08/04: there has been no seizure activity reported. hx seizures with withdrawal witnessed clonic tonic seizurestr eated with ativan and phenobarbi talencoura ged abstinence SUDs referralmo nitor for seizure activityco ntinue thiamine 100 mg qdfolate [address] 666 mg tid Bradycardia 63234095 R00 .1 HR 69Hx of syncope with implantabl e loop recorderSB in acute care with pausescard iology and EPS consulted- ILR interrogat ed, showed no correlatio n of syncope and pauses, no need for PPM. ILR removed.re commending PSG outpatient to r/o [facility]- referral paced in [facility] Harmful pa ttern of use of cocaine 82473229 F14.10 refer to SUDsencour aged abstinence provide supportive services /refer to Homeless 45127786 Z59.00 environmental services project manager for support and services Asthenia 02370379 R53.1 plan for OTimpaired gait/weakn ess07/26: he is ambulating with steady gait independen tly.08/04: meeting goals with therapy, independen t with care. Asthma 087982402 J45.99 8 hxnot currently on medication smonitor for resp/clini aldair changes [id number] MIKE REYNOLDS [facility] on [address] [place] [address] 08/10/2023 08:14:16 08/17/2023 15:56:48 Alcohol dependence 66814421 F10.288 hx seizures with withdrawal witnessed clonic tonic seizurestr eated with ativan and phenobarbi talencoura ged abstinence SUDs referralmo nitor for seizure activityco ntinue thiamine 100 mg qdfolate [address] 666 mg tid Bradycardia 67657376 R00 .1 Hx of syncope with implantabl e loop recorderSB in acute care with pausescard iology and EPS consulted- ILR interrogat ed, showed no correlatio n of syncope and pauses, no need for PPM. ILR removed.re commending PSG outpatient to r/o [facility]- referral paced in [facility] Harmful pa ttern of use of cocaine 23828141 F14.10 refer to SUDsencour aged abstinence provide supportive services /refer to [facility] Homeless 16663246 Z59.00 environmental services project manager for support and services Asthenia 30587251 R53.1 08/09/2023 : therapy goals met.He is independen t on on unit. Asthma 216356157 J45.99 8 hxnot currently on medication smonitor for resp/clini aldair changes [id number] MIKE REYNOLDS [facility] on [address] [place] [address] 08/16/2023 07:01:21 08/18/2023 08:46:19 Alcohol dependence 56399311 F10.288 08/16: There has been no reported seizurehx seizures with withdrawal witnessed clonic tonic seizurestr eated with ativan and phenobarbi talencoura ged abstinence SUDs referralmo nitor for seizure activityco ntinue thiamine 100 mg qdfolate [address] 666 mg tid Asthma 787381660 J45.99 8 08/16: Denies any shortness of breath or resp. issuesnot currently on medication smonitor for resp/clini aldair changes [id number] Dayana Sarmiento Lo [facility] on [address] [place] [address] 08/25/2023 10:10:49 08/28/2023 11:33:00 Alcohol dependence 39324043 F10.288 08/16: There has been no reported seizurehx seizures with withdrawal witnessed clonic tonic seizurestr eated with ativan and phenobarbi talencoura ged abstinence SUDs referralmo nitor for seizure activityco ntinue thiamine 100 mg qdfolate [address] 666 mg tid Asthma 639170268 J45.99 8 08/16: Denies any shortness of breath or resp. issuesnot currently on medication smonitor for resp/clini aldair changes Harmful pa ttern of use of cocaine 24006295 F14.10 follow up with outpatient carehas not used during SNF stay Homeless 66640086 Z59.00 discharge to nursing home Sinus bradycardia 546166 05 R00.1 resolved, HR 78 today Laboratory test result abnormal 171546149 R89.9 resolved, follow up with outpt PCP next week Health Concerns Section Related Observation LastModified by Organization Detai ls LastModified Time None Recorded Concern Status LastModified by Organization Details LastModified Time None Recorded Advance Directives Directive Y: Payers Insurance Date Sequence Insurance Name Policy Number Policy Hobbs Covered Member ID Hobbs Member ID Guarantor Name 03/21/2024 1 [place] [id number] [facility] Notes Date Note Type Note Provider Name and Address Organization Details Recorded Time 08/01/2023 text/html ROS as noted in the HPI Seen today for acute rounding visit. Past medical history remarkable for alcohol abuse dependency with withdrawal seizures, syncope with implantable loop recorder in place. Presented to [facility] on 07/08/23 from outside source with both unwitnessed and witnessed seizure; on arrival to ED he had another witnessed tonic clonic seizure associated with post ictal. He was treated with IV ativan and started on phenobarbital protocol. He was admitted for ETOH withdrawal, Rhabdo and and found to have sinus pauses. Evaluated by therapy for weakness, admitted to [facility] for continued care and rehab. On exam today he is stable, there is no acute nursing concerns. progressing toward therapy goals. MIKE REYNOLDS [address], [address], [place], [address], [facility] 08/01/2023 14:12:08 08/04/2023 text/html ROS as noted in the HPI Seen today for acute rounding visit. Past medical history remarkable for alcohol abuse dependency with withdrawal seizures, syncope with implantable loop recorder in place. Presented to [facility] on 07/08/23 from outside source with both unwitnessed and witnessed seizure; on arrival to ED he had another witnessed tonic clonic seizure associated with post ictal. He was treated with IV ativan and started on phenobarbital protocol. He was admitted for ETOH withdrawal, Rhabdo and and found to have sinus pauses. Evaluated by therapy for weakness, admitted to [facility] for continued care and rehab. He continue to be medically stable, he has been working with therapy, as of note he has progressed to independent for adl no adaptive device required. On exam he noted ambulating on unit with steady gait, he tells me that he is ok, there is no acute nursing concerns. MIKE REYNOLDS [address], [address], [place], [address], [facility] 08/04/2023 13:02:43 08/10/2023 text/html ROS as noted in the HPI Duarte is seen today for acute rounding visit. Past medical history of ETOH abuse with withdrawal seizures, cocaine abuse, asthma.He has been stable, he offers no complaints. There is no acute nursing concerns. MIKE REYNOLDS [address], [address], [place], [address], [facility] 08/10/2023 10:56:55 08/16/2023 text/html Duarte is seen today for routine rounding EDGE BRUSHER 30 day visit. Past medical history of ETOH abuse with withdrawal seizures, cocaine abuse, asthma. Duarte is alert and verbal in NAD. He has been stable seen his last rounding visit, there is no complaints, there is no acute nursing concerns. MIKE REYNOLDS [address], [address], [place], [address], [facility] 08/16/2023 11:03:33 08/25/2023 text/html ROS as noted in the HPI Duarte is seen today for discharge. Past medical history of ETOH abuse with withdrawal seizures, cocaine abuse, asthma. Duarte is alert and verbal in NAD. He has been stable seen his last rounding visit, there is no complaints, there is no acute nursing concerns. Dayana valle [address], [address], [place], [address], [facility] 08/25/2023 10:26:05
--- OUTSIDE RECORDS SUMMARY | 2025-08-07 19:40 | XMS_ITS | Clinical Summary ---
Author Organization [facility] Address [address] [place] [address] Phone Care Team Providers Care Tax Associate Name Role Phone Ramin Arnold MD Primary Care Provider [phone] Allergies Active Allergy Reactions Criticality Noted Date [...] Advance Directives For more information, please contact: [phone] (9AM - 5PM Sil/[facility], Monday-Monday) * Full Code (Latest Code Status on File) Date Activated Date Inactivated Comments 11/16/2024 5:47 PM Question Answer Comments Code Status Confirmed With: Patient * Full Code Date Activated Date Inactivated Comments 11/16/2024 5:45 PM 11/16/2024 5:47 PM Question Answer Comments Code Status Confirmed With: Other (specify below ) Care Teams Tax Associate Relationship Specialty Start Date End Date Ramin Arnold MD [email or web address] PCP - General Family Medicine 05/19/20 Additional Source Comments The information contained in this document represents components of the legal health record. It is not the complete legal health record.[facility]
--- OUTSIDE RECORDS SUMMARY | 2025-08-07 19:40 | XMS_ITS | Encounter Summary ---
Author Organization [facility] Address [address] [place] [address] Phone Care Team Providers Care Fire Range Technician Name Role Phone Ramin Arnold MD Primary Care Provider [phone] Encounter Details Date Type Department Care Team (Late st Contact Info) Description 05/21/2020 Transcribe Orders [facility] Specimen Processing [address] [place], [place] [id number] Ramin Arnold MD [address] [place] [address] [address], [address] [place] [address] [email or web address] COVID-19 ruled out (Primary Dx) Social History [...] 5:36 PM EDT) Specimen Source NASOPHARYNGEAL SWAB (SHUTTLE INSPECTOR) [facility] COVID Testing Status Sent to [facility] Other 05/21/2020 5:36 PM EDT 05/21/2020 5:47 PM EDT us Ramin Arnold MD BODY FLUIDS AND STOOLS ORDERABLE S Final Result [facility] [address] [place] [address] documented in this encounter Visit Diagnoses Diagnosis COVID-19 ruled out- Primary documented in this encounter Additional Health Concerns Infection Onset Date Last Indicated Resolved Time CoV-Exposed Comment:Recent close contact 05/21/2020 05/21/2020 06/04/2020 1:23 AM EDT CoV-Exposed Comment:Recent close contact 06/04/2020 06/04/2020 06/18/2020 1:24 AM EDT CoV-Exposed Comment:Recent close contact 08/26/2020 08/26/2020 09/09/2020 1:24 AM EST documented as of this encounter Care Teams Fire Range Technician Relationship Specialty Start Date End Date Ramin Arnold MD [email or web address] PCP - General Family Medicine 05/19/20 documented as of this encounter Additional Source Comments The information contained in this document represents components of the legal health record. It is not the complete legal health record.[facility]
--- OUTSIDE RECORDS SUMMARY | 2025-08-07 19:40 | XMS_ITS | Clinical Summary ---
Author Organization [facility] it Address [address] [place] [address] Care Team Providers Care Ent Physician Name Role Phone Unavailable Primary Care Provider [...]
--- OUTSIDE RECORDS SUMMARY | 2025-08-07 19:40 | XMS_ITS | Encounter Summary ---
Author Organization [facility] Address [address] [place] [address] Phone Care Team Providers Care Folder Taper Operator Name Role Phone Ramin Arnold MD Primary Care Provider [phone] Encounter Details Date Type Department Care Team (Late st Contact Info) Description 11/19/2024 Ophth Exam AMANDA Oph Trauma Main [place] [address] [place] [address] Laurence Coelho MD [address] [place] [address] [email or web address] Social History Tobacco Use Types Packs/Day Years [...] on filedocumented in this encounter Care Teams Folder Taper Operator Relationship Specialty Start Date End Date Ramin Arnold MD [email or web address] PCP - General Family Medicine 05/19/20 documented as of this encounter Additional Source Comments The information contained in this document represents components of the legal health record. It is not the complete legal health record.[facility]
--- NOTE | 2025-08-08 02:20 | PC.NURSE ---
Assumed care of pt. PT moved to [facility] from main ED. Report received from Ignacio Goodman RN. PT ambulated to pod with a steady gait. Oriented to unit. Changed into pod appropriate pants. Sunglasses placed into PTs persona belongings, and lights turned off in pts room. PT medically cleared, SI. Plan for care team [place].
--- NOTE | 2025-08-08 05:22 | PC.NURSE ---
CIWA score 7, pt medicated as per DEC. Plan of care ongoing
[2025-08-08 05:29] VITALS: RESP 16
[2025-08-08 06:33] VITALS: RESP 16
--- NOTE | 2025-08-08 06:54 | PC.NURSE ---
assumed care of patient at 0645, patient appears to be in no apparent distress this am, sleeping, respirations even and unlabored. Continue plan of care for CARE team assessment
[2025-08-08 08:50] VITALS: BP 103/70; PULSE 71; RESP 12; TEMP 36.9; O2SAT 96
--- NOTE | 2025-08-08 11:05 | PC.NURSE ---
Resumed care of patient at 1100, he is currently asking previous nurse if he can leave, Meenakshi Cazares at bedside, and discussed with MD about DC. At this time DC in place, pt in agreement, wilner offering ride at this time, in discussion with transport. Pt belongings being located and returned to patient. pt has been seen ambulating with a steady gait around the ED Pod, answering all of staffs questions at this time. Pt getting dressed at this time
[2025-08-08 11:50] VITALS: BP 103/70; PULSE 71; RESP 12; TEMP 36.9; O2SAT 96
== END 2025-08-08 11:51 | disposition home or self-care (01) ==
PROVIDERS: Emergency Medicine; Physician Assistant Medical; Emergency Provider Emergency Medicine Emergency Medical Services
DX: F10.129 Alcohol abuse with intoxication, unspecified (principal); R45.851 Suicidal ideations; R51.9 Headache, unspecified; F14.90 Cocaine use, unspecified, uncomplicated; F15.90 Other stimulant use, unspecified, uncomplicated; E04.1 Nontoxic single thyroid nodule; R00.1 Bradycardia, unspecified; D17.0 Benign lipomatous neoplasm of skin and subcutaneous tissue of head, face and neck; Z87.891 Personal history of nicotine dependence; Z51.81 Encounter for therapeutic drug level monitoring; Z79.899 Other long term (current) drug therapy
CPT/HCPCS: 36415; 70450; 72125; 80053; 80143; 80179; 80307; 81003; 82550; 83735; 85025; 93005; 99285; S9485

== ENCOUNTER → 2025-08-07 18:20 | Outpatient (BNV) | payer MEDICAID, SELFPAY | PROVIDERS: Emergency Provider Emergency Medicine Emergency Medical Services; Visit Provider Internal Medicine Cardiovascular Disease | DX: R00.1 Bradycardia, unspecified (principal) | CPT/HCPCS: 93010 ==

== ENCOUNTER → 2025-08-07 18:23 | Outpatient (BNV) | payer MEDICAID, SELFPAY | PROVIDERS: Emergency Provider Emergency Medicine; Visit Provider Radiology Diagnostic Radiology | DX: Z04.3 Encounter for examination and observation following other accident (principal) | CPT/HCPCS: 70450; 72125 ==

== ENCOUNTER 2025-08-08 23:00 | Emergency (ER) | payer MEDICAID, SELFPAY ==
--- NOTE | ~2025-08-08 | CT_ITS ---
CLINICAL HISTORY: Fall; Head Strike; EtOH CT BRAIN WITHOUT CONTRAST COMPARISON: 08/07/2025. FINDINGS: There is no evidence of an acute infarct or intraparenchymal hemorrhage. 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 Mild parenchymal atrophy is again noted there is no mass effect, midline shift, or extra-axial blood. The ventricles are normal in size without evidence of hydrocephalus. The bone windows are unremarkable. Metallic density is again noted within the soft tissues adjacent to the right aspect of the calvarium on axial image 51 of series 3. Metallic density is also again noted in the soft tissues of the neck on the topogram image. IMPRESSION: 1. No acute disease in the brain. This document has been electronically signed by: Pedro Kauffman M.D. on 08/09/2025 01:44:52
--- NOTE | ~2025-08-08 | CT_ITS ---
CLINICAL HISTORY: Fall, Head Strike; EtOH CT CERVICAL SPINE WITHOUT CONTRAST COMPARISON: 08/07/2025. FINDINGS: CT brain will be reported separately. No evidence of an acute fracture or dislocation within the cervical spine. Endplate degenerative changes are again noted at C5-C6. Previously noted thyroid nodules are not included in the field of view on this exam. IMPRESSION: 1. No evidence of an acute fracture or dislocation. This document has been electronically signed by: Pedro Kauffman M.D. on 08/09/2025 01:34:03
[2025-08-08 23:03] VITALS: BP 138/84; BP 140/92; PULSE 72; PULSE 76; RESP 16; TEMP 36.4; O2SAT 96; BMI 25.8
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
[2025-08-08 23:30] LABS: Hematocrit 33.6 % (42.0-52.0); Hemoglobin 11.1 g/dl (14.0-18.0); Imm Gran Abs Auto 0.00 X10*3/uL (0.00-0.03); Imm Gran Pct Auto 0.0 % (0.0-0.4); Lymphocytes Absolute Auto 1.3 X10*3/uL (1.2-4.9); MANUAL DIFF FLAG SCAN; Mean Corpuscular HGB Conc 33.0 g/dl (31.0-36.0); Mean Corpuscular Hemoglobin 30.6 pg (27.0-33.0); Mean Corpuscular Volume 92.6 fL (80.0-98.0); NRBC Abs Auto 0.000 X10*3/uL (0.0-0.012); NRBC Pct Auto 0.0 /100WBC (0.0-0.2); Platelet Count 110 X10*3/uL (160-400); Red Blood Count 3.63 X10*6/uL (4.60-5.80); SCAN SMEAR FLAG 1; White Blood Count 2.6 X10*3/uL (4.8-10.8)
--- NOTE | 2025-08-08 23:35 | PC.NURSE ---
this RN assumed care of this pt around this time, during triage pt not responiding to questions appropriately, shrugging shoulders, stating he is unsure of vaccination status, etc. Pt stated Who counts? during alcohol assessment questions and I do all the drugs during drugs use assessment, pt seen by provider Zahira Whittaker, pending CT scan, IV line placed and blood work obtained and sent to lab, pt noted to be laying semi zuñiga's in hospital stretcher
--- OUTSIDE RECORDS SUMMARY | 2025-08-08 23:38 | XMS_ITS | Encounter Summary ---
Author Organization [facility] Address [address] [place] [address] Phone Care Team Providers Care Agricultural Equipment Operator Name Role Phone Ramin Arnold MD Primary Care Provider [phone] Encounter Details Date Type Department Care Team (Late st Contact Info) Description 11/17/2024 Procedure Pass [facility]TH [facility] PERIOP DEPT [address] [place] [address] Social History Tobacco Use Types Packs/Day Years [...] on filedocumented in this encounter Care Teams Agricultural Equipment Operator Relationship Specialty Start Date End Date Ramin Arnold MD [email or web address] PCP - General Family Medicine 05/19/20 documented as of this encounter Additional Source Comments The information contained in this document represents components of the legal health record. It is not the complete legal health record.[facility]
--- OUTSIDE RECORDS SUMMARY | 2025-08-08 23:38 | XMS_ITS | Encounter Summary ---
Author Organization [facility] Address [address] [place] [address] Phone Care Team Providers Care Development Writer Name Role Phone Ramin Arnold MD Primary Care Provider [phone] Encounter Details Date Type Department Care Team (Late st Contact Info) Description 11/19/2024 Ophth Exam AMANDA Oph Trauma Main [place] [address] [place] [address] Laurence Coelho MD [address] [place] [phone] [email or web address] Social History Tobacco Use Types Packs/Day [...] on filedocumented in this encounter Care Teams Development Writer Relationship Specialty Start Date End Date Ramin Arnold MD [email or web address] PCP - General Family Medicine 05/19/20 documented as of this encounter Additional Source Comments The information contained in this document represents components of the legal health record. It is not the complete legal health record.[facility]
--- OUTSIDE RECORDS SUMMARY | 2025-08-08 23:38 | XMS_ITS | Encounter Summary ---
Author Organization [facility] Address [address] [place] [address] Phone Care Team Providers Care Hydro Mechanic Name Role Phone Ramin Arnold MD Primary Care Provider [phone] Encounter Details Date Type Department Care Team (Late st Contact Info) Description 05/21/2020 Transcribe Orders [facility] Specimen Processing [address] [place], [place] [id number] Ramin Arnold MD [address] [place] [address] [address] [place] [address] [email or web address] COVID-19 ruled out (Primary Dx) Social History [...] 5:36 PM EDT) Specimen Source NASOPHARYNGEAL SWAB (SPORTS BETTING MANAGER) [facility] COVID Testing Status [place] [facility] Other 05/21/2020 5:36 PM EDT 05/21/2020 5:47 PM EDT us Ramin Arnold MD BODY FLUIDS AND STOOLS ORDERABLE S Final Result [facility] [address] [place] [address] documented in this encounter Visit Diagnoses Diagnosis COVID-19 ruled out- Primary documented in this encounter Additional Health Concerns Infection Onset Date Last Indicated Resolved Time CoV-Exposed Comment:Recent close contact 05/21/2020 05/21/2020 06/04/2020 1:23 AM EDT CoV-Exposed Comment:Recent close contact 06/04/2020 06/04/2020 06/18/2020 1:24 AM EDT CoV-Exposed Comment:Recent close contact 08/26/2020 08/26/2020 09/09/2020 1:24 AM EST documented as of this encounter Care Teams Hydro Mechanic Relationship Specialty Start Date End Date Rmain Arnold MD [email or web address] PCP - General Family Medicine 05/19/20 documented as of this encounter Additional Source Comments The information contained in this document represents components of the legal health record. It is not the complete legal health record.[facility]
--- OUTSIDE RECORDS SUMMARY | 2025-08-08 23:38 | XMS_ITS | Clinical Summary ---
Author Organization [facility] it Address [address] [place] [address] Care Team Providers Care Asphalt Tile Floor Layer Name Role Phone Unavailable Primary Care Provider [...]
--- OUTSIDE RECORDS SUMMARY | 2025-08-08 23:38 | XMS_ITS | Encounter Summary ---
Author Organization [facility] Address [address] [place] [address] Phone Care Team Providers Care Procedure Manager Name Role Phone Ramin Arnold MD Primary Care Provider [phone] Encounter Details Date Type Department Care Team ([facility] st Contact Info) Description 11/16/2024 Ophth Exam AMANDA Consult from [address] [address] Lit Price MD [address] [place] [address] [email or web address] Social History Tobacco Use Types Packs/Day Years [...] 11/16/2024 5:00 PM Ju Hines RN * [place] Suicide Severity Rating Scale (Screener/Recent Self-Report) Question [...] on filedocumented in this encounter Care Teams Procedure Manager Relationship Specialty Start Date End Date Ramin Arnold MD [email or web address] PCP - General Family Medicine 05/19/20 documented as of this encounter Additional Source Comments The information contained in this document represents components of the legal health record. It is not the complete legal health record.[facility]
--- OUTSIDE RECORDS SUMMARY | 2025-08-08 23:38 | XMS_ITS | Encounter Summary ---
Author Organization [facility] Address [address] [place] [address] Phone Care Team Providers Care Building Architect Name Role Phone Ramin Arnold MD Primary Care Provider [phone] Encounter Details Date Type Department Care Team (Late st Contact Info) Description 11/16/2024 Ophth Exam AMANDA Oph Trauma Main [place] [address] [place] [address] Laurence Coelho MD [address] [place] [phone] [email or web address] Social History Tobacco Use Types Packs/Day [...] 11/16/2024 5:00 PM Ju Hines RN * [place] Suicide Severity Rating Scale (Screener/Recent Self-Report) Question Answer Date of Assessment Author 1. Wish to be (Past 1 Month) No 025 5:00 PM uJ Hines RN 2. Non-Specific Active Suici jennifer Thoughts (Past 1 Month) No 11/16/2024 5:00 PM Ju Hines, STEFFANY 6. Suicidal Behavior (Lifetime) No 5:00 PM Ju Hines, STEFFANY documented as of this encounter Plan of Treatment Not on file documented as of this encounter Visit Diagnoses Not on filedocumented in this encounter Care Teams Building Architect Relationship Specialty Start Date End Date Ramin Arnold MD [email or web address] PCP - General Family Medicine 05/19/20 documented as of this encounter Additional Source Comments The information contained in this document represents components of the legal health record. It is not the complete legal health record.[facility]
--- OUTSIDE RECORDS SUMMARY | 2025-08-08 23:38 | XMS_ITS | Clinical Summary ---
Author Organization [facility] Address [address] [place] [address] Phone Care Team Providers Care International Trade Teacher Name Role Phone Ramin Arnold MD Primary Care Provider [phone] Allergies Active Allergy Reactions Criticality Noted Date [...] Advance Directives For more information, please contact: [phone] (9AM - 5PM Sil/[facility], Monday-Monday) * Full Code (Latest Code Status on File) Date Activated Date Inactivated Comments 11/16/2024 5:47 PM Question Answer Comments Code Status Confirmed With: Patient * Full Code Date Activated Date Inactivated Comments 11/16/2024 5:45 PM 11/16/2024 5:47 PM Question Answer Comments Code Status Confirmed With: Other (specify below ) Care Teams International Trade Teacher Relationship Specialty Start Date End Date Ramin Arnold MD [email or web address] PCP - General Family Medicine 05/19/20 Additional Source Comments The information contained in this document represents components of the legal health record. It is not the complete legal health record.[facility]
--- OUTSIDE RECORDS SUMMARY | 2025-08-08 23:38 | XMS_ITS | Encounter Summary ---
Author Organization [facility] Address [address] [place] [address] Phone Care Team Providers Care Wrapper Caser Name Role Phone Ramin Arnold MD Primary Care Provider Encounter Details Date Type Department Care Team (Late st Contact Info) Description 11/16/2024 Procedure Pass [facility], [place] [facility], [address] Floor, [address] [place] [address] Social History Tobacco Use Types Packs/Day Years [...] 11/16/2024 5:00 PM Ju Hines RN * [place] Suicide Severity Rating Scale (Screener/Recent Self-Report) Question [...] on filedocumented in this encounter Care Teams Wrapper Caser Relationship Specialty Start Date End Date Ramin Arnold MD PCP - General Family Medicine 05/19/20 documented as of this encounter Additional Source Comments The information contained in this document represents components of the legal health record. It is not the complete legal health record.[facility]
[2025-08-08 23:43] LABS: Alanine Aminotransferase 57 U/L (0-40); Albumin Level 4.2 g/dL (3.5-5.0); Alkaline Phosphatase 97 U/L (39-117); Anion Gap 15 (12-20); Aspartate Amino Transferase 125 U/L (5-37); Blood Urea Nitrogen 6 mg/dL (9-16); Calcium 8.8 mg/dL (8.4-10.2); Carbon Dioxide 26 mmol/L (22-29); Chloride 105 mmol/L (96-108); Creatinine Clr Calc Pharmacy 151.3; Estimated Glomerular Filt Rate > 60; Potassium 3.2 mmol/L (3.3-5.1); Sodium 143 mmol/L (135-145); Total Protein 8.3 g/dL (6.5-8.0)
--- NOTE | 2025-08-09 02:38 | MHC.EDTECH ---
This hatchery attendant attempted to obtain patient's vitals. Patient aggressively moaned no and refused to let me check. Robin RN and STEFFANY Zapatasupervisor drying Nurse aware.
--- NOTE | 2025-08-09 05:30 | PC.NURSE ---
pt ambulated to the bathroom w/ this RN was on standby to assess pt ambulation, pt had brisk steady gait, given a tuna sandwich and gingerale, pt requesting pain medication, when inquiring pain level pt shrugged his shoulders, this RN inquired again and pt aggressively stated 12!
[2025-08-09 06:10] VITALS: BP 0/0; PULSE 0; RESP 16; TEMP -17.7; TEMP 0
== END 2025-08-09 06:16 | disposition home or self-care (01) ==
PROVIDERS: Emergency Provider Emergency Medicine
DX: F10.129 Alcohol abuse with intoxication, unspecified (principal); R51.9 Headache, unspecified; M54.2 Cervicalgia; Y90.8 Blood alcohol level of 240 mg/100 ml or more; Z51.81 Encounter for therapeutic drug level monitoring; Z79.899 Other long term (current) drug therapy
CPT/HCPCS: 36415; 70450; 72125; 80053; 80307; 85025; 99284

== ENCOUNTER → 2025-08-09 | Outpatient (BNV) | payer MEDICAID, SELFPAY | PROVIDERS: Emergency Provider Emergency Medicine; Visit Provider Radiology Diagnostic Radiology | DX: S09.90XA Unspecified injury of head, initial encounter (principal); F10.20 Alcohol dependence, uncomplicated; W19.XXXA Unspecified fall, initial encounter | CPT/HCPCS: 70450; 72125 ==

== ENCOUNTER 2025-08-12 20:37 | Emergency (ER) | payer MEDICAID, SELFPAY ==
--- OUTSIDE RECORDS SUMMARY | 2025-08-11 07:50 | XMS_ITS | Continuity of Care Document ---
Author Organization [facility] ter Address [address] [place] [address]- Care Team Providers Care Search Engine Marketing Specialist Name Role Phone Not on Staff, PCP Primary Care Physician Unavail able Encounter [facility] [place]): 08/10/25 - 08/11/[address] [address]- Encounter Diagnosis Alcohol intoxication delirium(Final) - 08/11/25 Discharge Disposition: A-D/C Home Attending Physician: Andrea Aparicio MD Admitting Physician: Andrea Aparicio MD Referring Physician: Not on Staff, Referring MD Encounter Type: Disch ES Allergies, Adverse Reactions, Alerts No Known Medication Allergies Substance Criticality Severity Reaction Reaction Severity Status shellfish Swelling and Throat closing Active Immunizations Given and Recorded Vaccine Date Status Refusal Reason [id number] bivalent booster vax 10/07/22 Recorded tetanus/diphtheria/pertussis, acel(Tdap) 01/24/22 Recorded tetanus/diphtheria/pertussis, acel(Tdap) 03/03/16 Given SARS-CoV-2 (COVID-19) mRNA-1273 vaccine 03/18/21 R ecorded SARS-CoV-2 (COVID-19) mRNA-1273 vaccine 02/18/21 R ecorded influenza virus vaccine, inactivated 07/03/18 Benson rded influenza virus vaccine, inactivated 07/25/16 Benson rded influenza virus vaccine, inactivated 08/07/08 Benson rded influenza virus vaccine, inactivated 07/10/07 Benson rded pneumococcal 23-valent vaccine 02/25/18 Given pneumococcal 23-valent vaccine 07/25/16 Recorded pneumococcal 23-valent vaccine 08/07/08 Recorded tetanus-diphtheria toxoids (Td) 02/20/18 Recorded tetanus-diphtheria toxoids (Td) 03/16/07 Recorded Hepatitis A Adult Vaccine 11/27/12 Recorded Measles/Mumps/Rubella Virus Vaccine 04/05/07 Recor ded hepatitis B adult vaccine 01/18/07 Recorded Medications acamprosate 333 mg oral delayed release tablet 2 tablet = 666 mg, By Mouth, 3 times a day, # 180 tablet, 0 Refills, Maintenance, 04/03/24 9:40:00 AM EDT, CR Tablet, Partial fill upon patient request if the prescription is for a schedule II opioid drug. Start Date: 04/03/24 Status: Ordered Medication Dispense Status: Completed Quantity: 180.0 Unit: tablet Total Allowed Fills: 1 Fills Dispensed: 0 folic acid 1 mg oral tablet 1 mg, 1, tablet, By Mouth, Daily, # 30 tablet, Refills 0, Tot. Refills 0, Maintenance, 03/01/18 9:51:17 AM EDT, Print Requisition Start Date: 03/01/18 Stop Date: 03/31/18 Status: Ordered Medication Dispense Status: Completed Quantity: 30.0 Unit: tablet Total Allowed Fills: 1 Fills Dispensed: 0 gabapentin 300 mg oral capsule 300 mg, By Mouth, 3 times a day, # 21 capsule, Refills 0, Tot. Refills 0, Maintenance, 04/15/24 7:45:00 AM EDT, Route to Pharmacy Electronically, [facility], Partial fill upon patient request if the prescription is for a schedule II opioid drug., 175.2, cm, 04/15/24 7:29:00 EDT, Height,88.8, kg, 04/09/24 16:46:00 EDT, Dry Weight Start Date: 04/15/24 Stop Date: 04/22/24 Status: Ordered Medication Dispense Status: Completed Quantity: 21.0 Unit: capsule Total Allowed Fills: 1 Fills Dispensed: 0 HydrOXYzine HCL Tablet = 25 mg, By Mouth, 4 times a day, PRN Anxiety, 0 Refills, Maintenance, 04/03/24 9:42:00 AM EDT, Partial fill upon patient request if the prescription is for a schedule II opioid drug. Start Date: 04/03/24 Status: Ordered Medication Dispense Status: Completed Total Allowed Fills: 1 Fills Dispensed: 0 multivitamin Multiple Vitamins oral tablet 1 tablet, By Mouth, Daily, # 30 tablet, 0 Refills, Maintenance, 03/01/18 9:52:28 AM EDT, Tablet Start Date: 03/01/18 Stop Date: 03/31/18 Status: Ordered Medication Dispense Status: Completed Quantity: 30.0 Unit: tablet Total Allowed Fills: 1 Fills Dispensed: 0 OXcarbazepine 150 mg oral tablet 150 mg, 1, tablet, By Mouth, 2 times a day, # 60 tablet, Refills 0, Maintenance, 04/03/24 9:39:00 AMEDT, Partial fill upon patient request if the prescription is for a schedule II opioid drug. Start Date: 04/03/24 Status: Ordered Medication Dispense Status: Completed Quantity: 60.0 Unit: tablet Total Allowed Fills: 1 Fills Dispensed: 0 sertraline 100 mg oral tablet 1 tablet = 100 mg, By Mouth, Daily in AM, # 30 tablet, 0 Refills, Maintenance, 04/03/24 9:41:00 AM EDT, Tablet, Partial fill upon patient request if the prescription is for a schedule II opioid drug. Start Date: 04/03/24 Status: Ordered Medication Dispense Status: Completed Quantity: 30.0 Unit: tablet Total Allowed Fills: 1 Fills Dispensed: 0 tamsulosin 0.4 mg oral capsule 0.4 mg, By Mouth, Daily, # 30 capsule, Refills 0, Tot. Refills 0, Maintenance, 04/15/24 7:24:00 AM EDT, Route to Pharmacy Electronically, [facility] 3, Partial fill upon patient request if the prescription is for a schedule II opioid drug., 175.2, cm, 04/14/24 23:08:00 EDT, Height, 88.8, kg, 04/09/24 16:46:00 EDT, Dry Weight Start Date: 04/15/24 Stop Date: 05/15/24 Status: Ordered Medication Dispense Status: Completed Quantity: 30.0 Unit: capsule Total Allowed Fills: 1 Fills Dispensed: 0 traZODone 50 mg oral tablet 100 mg, 2, tablet, By Mouth, Daily at bedtime, # 90 tablet, Refills 0, Maintenance, 04/03/24 9:43:00AM EDT, Partial fill upon patient request if the prescription is for a schedule II opioid drug. Start Date: 04/03/24 Status: Ordered Medication Dispense Status: Completed Quantity: 90.0 Unit: tablet Total Allowed Fills: 1 Fills Dispensed: 0 Problem List Condition Confirmation Course Effective Dates Status Health St atus Informant Seizure Confirmed Active Vital Signs Most recent to oldest [Reference Range]: 1 2 3 Oxygen Saturation [94-100 %] 93 % *L* (08/11/25 7:34 AM) 98 % (08/11/25 4:00 AM) 98 % (08/11/25 3:00 AM) Pulse Rate [55-90 bpm] 59 bpm (08/11/25 7:34 AM) 49 bpm *L* (08/11/25 4:00 AM) 53 bpm *L* (08/11/25 3:00 AM) Blood Pressure [90-138/55-84 mm Hg] 106/62mm Hg (08/11/25 7:34 AM) 100/68mm Hg (08/11/25 4:00 AM) 93/56mm Hg (08/11/25 3:00 AM) Respiratory Rate [16-30 br/min] 14 br/min *L* (08/11/25 7:34 AM) 14 br/min *L* (08/11/25 4:00 AM) 15 br/min *L* (08/11/25 3:00 AM) Temperature [96.8-100.4 DegF] 98.2 DegF (08/11/25 7:34 AM) 98.0 DegF (08/11/25 4:00 AM) 97.8 DegF (08/10/25 7:14 PM) Liters per Minute 2 L/min (08/11/25 4:00 AM) 2 L/min (08/11/25 3:00 AM) 2 L/min (08/11/25 2:00 AM) Mode of Delivery (Oxygen) Room air (08/11/25 7:34 AM) Nasal cannula (08/11/25 4:00 AM) Nasal cannula (08/11/25 3:00 AM) Blood pressure sites Arm, right (08/10/25 7:14 PM) Leg, right (08/10/25 6:44 PM) Temperature Route Oral (08/11/25 7:34 AM) Oral (08/11/25 4:00 AM) Oral (08/10/25 7:14 PM) Social History Social History Type Response Tobacco Use: 4 or less cigar ettes(less than 1/4 pack)/day in last 30 days. Interested in cessation: No. No Sex Male Sex Representation Male (finding) Implantable Device List Procedure Provider Procedure Date Device Type Site Repair Hernia Incisional Open Tiny FLORES MD (Surgeon)Agustín 04/09/24 Unknown Abdomen Device Identifier Serial Number Lot or Batch Number Manufacturing Date Expiration Date Distinct Identification Code MRI Safety Implantable Status Assigning Authority Unknown Unknown [id number] Unknown 07/13/28 Unknown Unknown Active Unknown Note * Andrea Aparicio MD: PERFORM Event Display: Patient Education Leaflets Authored Date: [id number] Opioid Prescription Risks and Treatment Resources ?? 223 Prescription Opioid Risks and Treatment Resources You have been prescribed an opioid as part of your pain treatment, which may be used following injury, surgery, or arising from other health conditions. All patients taking opioids are at risk for unintentional overdose, addiction, or . Therefore, you should discuss with your prescriber all treatment options available to you. ?? Common side effects of opioids include: ? Constipation ? Breathing problems ? Low Sex Drive, Energy, and Strength ? Sleepiness/drowsiness ? Confusion ? Nausea ?? Opioids are powerful painkillers, and if misused can have serious side effects including addiction.Your risk increases if: ? You are also taking other drugs like antihistamines, barbiturates, or antidepressant/anxiety medications (e.g., Benzodiazepines) ? You consume alcohol while taking opioids ? You or a family member have a history of substance use disorder or overdose ? You have a mental health condition, such as depression or anxiety ? You have sleep apnea ? You take more than the recommended prescribed amount ?? Know your options ? Read all instructions for your medication, take your medication exactly as prescribed, do not adjust your doses, and keep track of when you take your medication. ? If you have any questions about your medication ask your prescriber or pharmacist, including information about possible side effects as well as options for seeking a partial fill of the prescription. If you decide to partially fill your prescription opioid, you will need to contact your prescriber if additional medication is needed. ? Talk to your prescriber about non-opioid treatment options or if you don???t want luz maria treated with opioids. ? Ask your prescriber about having an antidote (e.g., Naloxone) in case of an accidental overdose. ?? Protecting family, friends, and others Storage: Medications should be kept in a locked cabinet or box when not in use. Medications should be placed in a location hard for children and pets to reach Disposal: For the safety of others and the environment, patients are encouraged to take advantage of drug take-back programs and safe drop sites, which are available on the [place] PrescriptionDropbox Location website.[1] When these programs are not accessible, other secondary methods including flushing the medication down the toilet should be considered Addiction Resources:?? Be aware of the signs of addiction, which include uncontrollable cravings and inability to control opioid use even though it is having negative effects on personal relationships or finances. If you suspect or are concerned about addiction, the following resources may help: ? For Youth, Young Adults (up to age 24), and Women : [place] Central Intake & Care Coordination: or [phone] ? For all [place] residents: Information and Referrals for Substance Abuse Services: TTY: 247.403.9800 or online at www.[email or web address].com ?? Recommendations for Medication Storage Medications can be an important part of any treatment but also come with serious risks.?? Prescription opioids in particular are used to treat moderate or severe pain following injury, surgery, or for other health conditions.?? To avoid accidental or illegal use of prescriptions by others, it is critical that you properly store medication in areas least likely to be found or accessible by children, family members, and guests ?? Commonly Abused Prescription Medications: ? Pain Medications prescribed for people with serious, long-term pain, and sometimes short term pain: Vicodin??, OxyContin??, Percocet??, and codeine ? Stimulants used to treat attention deficit hyperactivity disorder (ADHD), or other disorders: Ritalin??, Concerta??, Adderall??, Dexedrine??, and Meridia? Sedatives, Tranquilizers, and Barbituates prescribed to treat stress, anxiety, panicattack, insomnia and seizures: Valium??, Xanax??, Ativan??, Klonopin??, Ambien??, Lunesta? Keeping others Safe: It is important to store your medication in a place that is not likely to be found by children, family members, and guests. ? Keep your prescriptions in a secure location to make sure kids, family, and guests don???t have access to them, preferably in a locked box which you can purchase at your local pharmacy. ? Know where your prescription medications are at all times. ? Keep prescription medications in the original bottle with the label attached and thechild-resistant cap secured. ? Keep track of how many prescription pain pills are in your bottle so you are immediately aware if any are missing. ?? Additional Best Practices for Proper Storage: ? Don???t leave the cotton plug in a medicine bottle. ? Check the expiration date each time you take a drug. ? Never use a medication that has changed color, texture, or odor, even if it has not . Safely dispose of capsules or tablets that stick together, are harder or softer than normal, or are cracked or chipped. ? Ask your pharmacist about any specific storage instructions for your medications. ?? Why this information is important: According to recent statistics, approximately 71% of obtained prescription drugs are gifted, purchased, or stolen from friends and relatives. In fact, survey results from 6519-0984 suggest that 6.1 million people have used prescription drugs for non-medical purposes in a given month. Proper storageand keeping commonly abused medications out of reach of children, family members, and guests can prevent others from illegally or accidentally taking your medications and prevent harmful risks such as overdose or . ? [1] http://www.[place].gov/eohhs/gov/departments/dph/programs/substance-abuse/preventio n/ghyvrjrwffct-ebosgrt-xmvlaubbv.html ?? * Andrea Aparicio MD: PERFORM Event Display: Patient Education Leaflets Authored Date: [id number] Homelessness Resources ?? 748 Housing and Homelessness Resources ?? Case Management and Housing Stabilization ?? [employer]???[facility] Buck Swamper [address] [place] [address] (Middle Floor) [place] [address] Ph: / Fax: [facility] program provides case management, housing search assistance, and substance use treatment referrals for people experiencing homelessness including those living in area shelters, on the streets, or temporarily staying with friends or relatives. [facility] case management includes assisting people in meeting basic needs, accessing entitlement benefits, recovery coaching services, including substance use disorder groups, connecting with vocational rehabilitation and employment programs, filling out forms, and requesting vital documents including certificates and IDs. Referrals are made so people can obtain fci, permanent housing,as well as primary and behavioral health care. ?? Clinical Support Options - WET MACHINE CUTTER ([facility]riends [facility] the Homeless) An [facility] resource center is open daily at each site where guests can gain information to obtain work,housing, or healthcare - or simply to stay warm or cool. ?? Locations: [facility] [address] [facility] ?? [facility] [address] [facility] or [phone] ?? [facility] [address] [facility] ?? The [facility] Resource Center in [place] provides access to a fully-licensed, on- site health clinic, a resource room with computer availability and training, and case management rn working with clients daily to remove barriers to permanent housing and employment. Our Resource Center is handicap-accessibleand is conveniently located on a PVTA line ([place] [address] bus stop). benefits clerk assigned to fci clients only ?? [facility] ([facility]) Walk-ins and in-person appointments are welcomed. A variety of programs offered: ??? Help for renters -help with overdue rent or utility bills, apply for subsidized housing, concerns for housing discrimination, have a current housing subsidy but want to save for a home purchase or other financial milestone. ??? Foreclosure prevention - if you are behind on your mortgage payments or have utilities in arrears, you may qualify for emergency assistance from the RAFT program. ??? Experiencing homelessness - supports those who are experiencing homelessness with brief counseling, housing search support and assistance with applying for RAFT for move-in costs. [employer] [facility] [facility] does not directly fci homeless individuals but offers fci information. [facility] does manage family shelters but requires a referral from the Executive [employer] of Housing and Livable Communities (EOHLC). Emergency Assistance (EA) [facility]cf - [facility] [address] [facility] Monday through Monday 8AM-5PM If you are a landlord, tenant or homeowner with housing related questions, visit a housing center. Office Hours: Monday through Monday 8:30am - 4:00pm, ph: [phone] or [phone], TDD [phone] ?? [facility] [address] [place] [address] [facility] [address] [facility], [address], [place] [address] [facility] [address] [place] [address] ?? [employer] [facility] [address] [place] [address] Please call to schedule an appointment: [phone] Hours of Operation: Monday-Monday 9AM-4:30PM (summer hours 9AM-2PM) Office of Buck Swamper: Services are offered to individuals and families in need of assistance. Each person is given individual attention at the intake process. Evaluation, assistance, and case management are available in the following services areas: ??? Rental assistance/housing assistance - prevention, diversion, and rapid rehousing ??? Utility assistance/fuel assistance ??? Financial literacy classes ??? Housing counseling ??? Assistance and referrals for: food stamps, [facility], employment resources, food pantries, housing ??? Other seasonal assistance: assistance for families during holiday seasons and back to school ?? [facility] [place] [address] [facility] [phone] The Resource Center is staffed and open Monday through Monday 8:30AM-4:30PM. Clothing donations andother survival gear such as tents, tarps and sleeping bags pending availability. A place to come hang out during the day and meet with staff to help address individual needs. In addition to a safe space to hang out, there are computers available for use. Breakfast is served on Wednesdays. ?? [facility] [place] [facility] & [facility] [address] [place] [address] or [phone] How we help - People can go to the centers during the day to medicinal plant picker a bag lunch or cup of coffee, and to use the computers and phones for their job and housing searches. We offer one-to-one support and guidance to individuals who wish to set and attain a??variety of goals - from securing employment, to achieving sobriety, finding a mental health counselor, signing up for food stamps or social security benefits, or renewing ID???s. We also provide a fixed address which people can use to receivetheir mail. In addition, our comprehensive housing search services address issues which may preventpeople from finding a home. Through our follow up program, we help individuals keep their housing af ter they have moved out of the shelters. ? Medical and Dental ?? [facility] Services for the Homeless [address] [place] [address], [place] [address] , to schedule an appointment at one of seven locations nearest you, Monday through Monday 8:30AM-4:30PM *Providing primary care, dental, mental health & substance abuse services. ?? Health Care for the Homeless - [facility] The [facility] ([facility]) program has been a steadfast advocate for the health and well-being of homeless individuals in [facility] for over four decades. Our program offers a wide range of services including: ??? On-site primary care provided at shelters, soup rafael, job placement sites, and transitionalprograms throughout [facility]. ??? Specialized Services: our team includes nurses, nurse practitioners, a medical receptionist medical assistant, case management rn, administrative staff, physicia ns, psychiatrists and an accounts receivable executive. ??? The Street Outreach team extends our services to the most vulnerable homeless individuals. For more information call [phone] ?? [facility] Access to compassionate, accurate, high-quality healthcare should be available to everyone regardless of income, age, race, gender, sexual orientation or immigration status. Services include harm reduction, sexual and reproductive health, as well as food access and family nutrition. Syringes and sharps disposal available by calling [phone]. Locations throughout [place], [facility], [place], [place], [place], and [place]. or [phone] [email or web address] Schedule online at [email or web address] ?? [facility] Provides comprehensive and high-quality primary care services to people in need, regardless of their ability to pay. At the [facility] you will NOT be turned away even if you don???t have health insurance. Enrollment Navigators available to help you access health insurance. Healthcare services available as well to newly incoming refugees who might not otherwise have access to healthcare. Clinical and virtual services include adult and pediatric medical care, dental and behavioral health services. Call [phone] to schedule an appointment. Locations: ??? [address] [place] [address] ??? [address] [place] [address] ??? [address] [place] [address] ??? [address] [facility] [address] ? Meals ?? [facility] ([facility] Chcf) [address] [place], [place] ??? Breakfast: 8:00-9:00 am??Lunch: 12:00-1:00 pm Dinner: 4:30-5:30 pm ?? [place] [employer] [address] [place] [address] Meals are available to anyone in need - men, women and children. No prerequisites required. ??? Public Breakfast and Lunch Program: Services a well-balanced full meal for up to 100 hungry men, women, and children six days per week. o Breakfast 7AM- 7:30AM o Lunch 12:30PM-1PM ??? Holiday Meals: special holiday meals are available for Daniel Calderón, and Debbie. Call [phone] for holiday mealtimes. ??? Operation [employer]: A mobile feeding ministry that delivers an average of 100 meals each day of operation to the homeless and residents in [facility]???s low-income neighborhoods. ?? [employer] - [facility] Buck Swamper Weekdays and Weekends: [facility] [address] [place] [address] 12PM Lunch/5PM Dinner The Holiday Meals are a traditional holiday meal for anyone in need of a meal or for those who wishto spend [place], [place] and Easter with others. The holiday meals are served at the [employer] [address] [place] [address]. Meals are served at 12PM. Enter through the (west) side door of the school. ? Clothing ?? [place] [facility] [place] [address] [place] [phone] The Give [facility] distributes gently used clothing, shoes, coats, bedding items, towels, small household goods and essential hygiene products to men, women, and children. Bags of non-perishable groceries are also given out when available. The [facility] center operates by appointment. To schedule an appointment, call [phone], ext. [phone]. ?? Dress for Success - [address] [address] Provides women with what they need for an interview - from clothing to confidence - and can return once they find employment for additional apparel and accessories. Call [phone] ? Advocacy and Support Centers ?? [employer] Website: [email or web address] Formerly known as the [facility] Learning Community ([facility]), [employer] supports healing and empowerment for our broader communities and people who have been impacted by psychiatricdiagnosis, trauma, extreme states, homelessness, problems with substances and other life interrupting challenges. We do this through peer to peer support, alternative healing practices, learning opportunities, and advocacy. Peer Support Line [phone], please do not leave a voicemail. Locations: ??? [place] ???[place]?? [place], [address] [place] [address], ph: [phone], Monday through Monday 10AM-1PM o Amenities: computers, printer, and fax, gym equipment, space to connect withothers, chess, art room, kitchenette, clothing pantry, shower (limited lottery based). ??? [facility], [address] [place] [address], ph: [phone], Tuesdays, 1PM- 4PM and [id number] o Amenities: space to hang out and connect with others, projector screen, kitchenette, computers, printer and fax, food and clothing donations. *Not fully ADA compliant*. ??? [facility], [address] [facility], ph: [phone], Mondays, Wednesdays and Fridays 12:30PM-4PM o Amenities: computers, printer and fax, space to hang out, art and music supplies, full kitchen, projector and screen. ??? [facility], [address] [place] [address],[place], ph: [phone] or toll free [phone], Mondays, Tuesdays, Wednesdays and 12PM-4PM o Amenities: Common area to connect with others, large library, art and music supplies, computers, printer and fax, side group room, kitchenette. Light snacks are often available and hot coffeeis always brewing! ??? [facility], [place], ph: [phone] o Quick facts: regular house with 3 private bedrooms that lock from the inside, stays are up to 7 nights, open to those 18+ with an address in [place] or [place], [place], come and go as you please, 08/05 Peer Support available,no curfew, meetings or other restrictions, minimal paperwork, no cost program. ? General Information available by visiting [address] [place] [email or web address]. Find help for: ??? Programs and Services: Food, Housing/Chcf, Mental Health, Substance Use, Legal, Reentry, Digital and Mentoring. ??? Holiday Resources in [place], [place] ??? [employer] ??? Resource Networks ?? Patient Care team information Care Team Personnel Name: Kayla Randall RN Position: [facility] RN Member Role: Primary Care Nurse Name: Ashley Watson RN Position: [facility] RN Member Role: Primary Care Nurse Name: Samantha Balderrama RN Position: [facility] RN Member Role: Primary Care Nurse Name: Guerda Narayanan RN Position: S RN Member Role: Primary Care Nurse Name: Ann-Marie Manzanares RN Position: [facility] OB RN Member Role: Primary Care Nurse Name: Charito Peres RN Position: [facility] SN RN Member Role: Primary Care Nurse Name: Dayana Romo RN Position: S RN Member Role: Primary Care Nurse Name: Conchis Amador RN Position: S RN Member Role: Primary Care Nurse Name: Christa Boss RN Position: S RN Member Role: Primary Care Nurse Name: Kristin Joshua RN Position: S RN Member Role: Primary Care Nurse Name: Evette Nickerson RN Position: [facility] RN Member Role: Primary Care Nurse Name: Leslie López RN Position: [facility] RN Member Role: Primary Care Nurse Name: Kristi Antonio RN Position: [facility] RN Member Role: Primary Care Nurse Name: Edmond Phillips RN Position: [facility] RN Member Role: Primary Care Nurse Name: Fran Bee NP Position: Reference Physician Member Role: Primary Care Nurse Address: [address] [place] [address] Telecom: Name: Not on Staff, PCP Position: [facility] Physician (General Medicine) Member Role: PCP Name: Shira Aguirre RN Position: [facility] RN Member Role: Primary Care Nurse Name: Gilma Clifton RN Position: [facility] RN Member Role: Primary Care Nurse Name: Beverley Dobbins RN Position: [facility] RN Member Role: Primary Care Nurse Name: Leta Sanchez RN Position: [facility] SN RN Member Role: Primary Care Nurse Name: Nina Thakkar RN Position: [facility] AMB Nurse Member Role: Primary Care Nurse Name: Kelly Cota RN Position: [facility] RN Member Role: Primary Care Nurse Name: Maritza Miguel RN Position: [facility] RN Member Role: Primary Care Nurse Name: Melissa Miguel RN Position: [facility] RN Member Role: Primary Care Nurse Name: Sommer Díaz RN Position: [facility] RN Member Role: Primary Care Nurse Care Team Related Persons Name: HEATHER RENO Name: ERIK RENO Name: VENANCIO LINARES Name: STATES, NONE Name: MALCOM NEUMANN Insurance Providers Guarantor name: [place] Health Plan Information #: 1 Payer: [employer] Payer Identifier: Member Number: [id number] Group Number: Subscriber Identifier: [id number] Relationship to Subscriber: self Coverage Type: MEDICAID Coverage Verification Date: [place] Telecom: NA Address:
[2025-08-12 20:42] VITALS: BP 127/87; PULSE 85; O2SAT 98
[2025-08-12 20:48] VITALS: BP 107/64; PULSE 73; RESP 18; TEMP 36.4; O2SAT 95; BMI 32.5
--- OUTSIDE RECORDS SUMMARY | 2025-08-12 21:16 | XMS_ITS | Encounter Summary ---
Author Organization [facility] Address [address] [place] [id number] Phone Care Team Providers Care Psychological Tests Sales Agent Name Role Phone Ramin Arnold MD Primary Care Provider [phone] Encounter Details Date Type Department Care Team (Late st Contact Info) Description 11/19/2024 Ophth Exam AMANDA O[facility] Tra[facility] [place] [address] [place] [address] Laurence Coelho MD [address] [place] [id number] [email or web address] Social History Tobacco Use Types [...] on filedocumented in this encounter Care Teams Psychological Tests Sales Agent Relationship Specialty Start Date End Date Ramin Arnold MD [email or web address] PCP - General Family Medicine 05/19/20 documented as of this encounter Additional Source Comments The information contained in this document represents components of the legal health record. It is not the complete legal health record.[facility]
--- OUTSIDE RECORDS SUMMARY | 2025-08-12 21:16 | XMS_ITS | Encounter Summary ---
Author Organization [facility] Address [address] [place] [address] Phone Care Team Providers Care Museum Informatics Specialist Name Role Phone Ramin Arnold MD Primary Care Provider [phone] Encounter Details Date Type Department Care Team (Late st Contact Info) Description 11/16/2024 Procedure Pass [facility], [address] [facility], [address]nd Floor, [address] [place] [address] Social History Tobacco Use Types Packs/Day Years [...] 11/16/2024 5:00 PM Ju Hines RN * [place] Suicide Severity Rating Scale (Screener/Recent Self-Report) Question [...] on filedocumented in this encounter Care Teams Museum Informatics Specialist Relationship Specialty Start Date End Date Ramin Arnold MD PCP - General Family Medicine 05/19/20 documented as of this encounter Additional Source Comments The information contained in this document represents components of the legal health record. It is not the complete legal health record.[facility]
--- OUTSIDE RECORDS SUMMARY | 2025-08-12 21:16 | XMS_ITS | Data Portability ---
Author Organization [facility], Main Office Address [address] [place] [address] Care Team Providers Care Doweling Machine Operator Name Role Phone [facility] OTHER Assessment Encounter Date [...] Address Organization Details Recorded Time Alcohol dependence 70437500 Active 2019 Riri harman, [facility] 0 10:55:15 Alcohol dependence 58418568 Active 2019 Riri Espinal null, [facility] 0 10:55:21 Sinus bradycardia 02495642 Active 2019 Riri harman, [facility] 0 10:55:22 Asthma 123163357 Active 2019 Riri harman, [facility] [employer] [facility] 0 10:55:25 Harmful pattern of use of cocaine 97928435 Active 2022 JESSICADOROTA HALEY, [employer] [address] , [address], [place], [address], [facility] [employer] [facility] 3 17:51:39 Homeless 29240539 Active 2022 JESSICADOROTA HALEY, [facility] [address], [address], [place], [address], [facility] [employer] 3 18:07:02 Asthenia 56273298 Active 2022 JESSICADOROTA HALEY, [facility] [address], [address], [place], [address], [facility] [employer] 3 18:07:05 Bradycardia 51548017 Active 2022 JESSICA HALEY, [facility] [address], [address], [place], [address], [facility] [employer] 3 18:07:11 Laboratory test result abnormal 831866694 Active 2022 JESSICADOROTA HALEY, [facility] [address], [address], [place], [address], [facility] [employer] 3 18:07:15 Problem Notes None recorded. Medical Equipment None Reported. Allergies Allergen ID Allergen Name Allergen Category Reaction Reaction Severity Criticality Documentation Date Start Date Code Code System Note Provider Name and Address Organization Details Recorded Time 92952 shellfish derived food,medi cation Not available Not available Not available 05/19/2020 Riri harman, [facility] [employer] 0 08:43:01 Medications Not known to be on any medication Vitals Date Recorded Heart rate Respiratory rate Body temperature Oxygen saturation Oxygen saturation in Arterial blood by Pulse oximetry Systolic And Diastolic Provider Name and Address Organization Details Last Updated DateTime 3 78 /min 18 /min 97.4 [degF] 99 % 99 % 115/67 mm[Hg] Dayana Sarmiento -Kierkla [address], [address], [place], [address], [facility] [employer] 3 10:21:31 Social History Question Answer Notes LastModified by Organizat ion Details LastModified Time Tobacco Smoking Status Current Every Day Smoker 2 a day MIKE REYNOLDS [address], [address], [place], [address], [facility] 07/19/2023 17:16:49 Do You Have An [...] Do You Have A Medical Power Of Electrician Station Assistant? No Information not available 07/19/2023 What Was [...] anxious, or unable to sleep at night)? [id number] Information not available 07/19/2023 Family History Relationship [...] 25mcg/0.25 mL dose 2 completed Nicole harman [facility] 10/17/2023 11:43:55 Tdap 2 completed Nicole harman [facility] 01/22/2024 14:21:00 Td (adult), 5 Lf tetanus toxoid, preservative free, adsorbed 7 completed Nicole harman [facility] 01/22/2024 14:21:20 Td (adult), 5 Lf tetanus toxoid, preservative free, adsorbed 8 completed Nicole harman [facility] 01/22/2024 14:21:35 pneumococcal polysaccharide PPV23 8 completed Nicole harman [facility] 01/22/2024 14:21:54 pneumococcal polysaccharide PPV23 6 completed Nicole harman [facility] 01/22/2024 14:22:04 Influenza, adjuvanted, quadrivalent, PF 3 completed Nicole harman [place] - [facility] 01/22/2024 14:23:02 Past Encounters Encounter ID Performer Location Encounter Start Date Encounter Closed Date Diagnosis/Indication Diagnosis SNOMED-CT Code Diagnosis ICD10 Code Diagnosis IMO Codes Diagnosis Note [id number] MIKE Chen [facility] on [address] [place] [address] 05/19/2020 08:42:26 05/29/2020 13:18:57 Alcohol dependence 63873326 F10.288 Hx of withdrawal seizuresFo lic acid 1 mg dailyThiam ine 100 mg dailyPT OT eval and treat Sinus bradycardia 580734 05 R00.1 Implanted cardiac technician in placeF/u with cardiology Monitor HR Asthma 398864883 J45.99 8 Monitor respirator y status Liver enzy mes level above reference range 786263350 R74.8 Secondary to heavy ETOH useRepeat and monitor [id number] Lois Multani MD [facility] on [address] [place] [address] 05/20/2020 07:06:00 05/29/2020 14:50:19 Alcohol dependence 55598861 F10.20 thiamine 100 mg dailyfolic acid 1 mg dailysocia l work fu to encourage ongoing support and treatment Asthenia 69784794 R53.1 PT/OTwill monitor Liver enzy mes level above reference range 222208775 R74.8 will monitor Sinus bradycardia 796631 05 R00.1 resolvedwi ll monitor [id number] MIKE Chen [facility] on [address] [place] [address] 05/26/2020 09:30:59 05/29/2020 13:59:21 Alcohol dependence 63675745 F10.288 Hx of withdrawal seizuresFo lic acid 1 mg dailyThiam ine 100 mg dailyNo sxs of withdrawal noted Sinus bradycardia 996123 05 R00.1 Implanted cardiac technician in placeF/u with cardiology Monitor HR-ranges 58-88 Asthma 264308977 J45.99 8 Monitor respirator y statusOn no medication s [id number] MIKE Chen [facility] on [address] [place] [address] 06/12/2020 08:31:05 06/16/2020 10:01:54 Alcohol dependence 92526275 F10.288 Hx of withdrawal seizuresFo lic acid 1 mg dailyThiam ine 100 mg dailyNo signs of withdrawal currently Sinus bradycardia 985793 05 R00.1 Implanted cardiac technician in placeF/u with cardiology Monitor HR Asthma 178648099 J45.99 8 Monitor respirator y status Liver enzy mes level above reference range 245563133 R74.8 Secondary to heavy ETOH useRepeat LFTs 06/15 [id number] Riri Espinal [facility] on [address] [place] [address] 06/16/2020 11:47:30 06/18/2020 11:34:00 Alcohol dependence 41037938 F10.288 Hx of withdrawal seizuresFo lic acid 1 mg dailyThiam ine 100 mg dailyNo signs of withdrawal Encouraged to remain sober Sinus bradycardia 411634 05 R00.1 Implanted cardiac technician in placeRemai ns asymptomat ic F/u with cardiology Asthma 426402370 J45.99 8 No respirator y issues currentlyF /u with PCP Liver enzy mes level above reference range 601772363 R74.8 Secondary to heavy ETOH useNow resolved [id number] JESSICA HALEY [facility] on [address] [place] [address] 07/19/2023 15:26:02 07/27/2023 10:51:11 Laboratory test result abnormal 160916037 R89.9 In acute care rhabdo, hypokalemi a, transamini tis, hypomagnes emia , thrombocyt openia, normocytic , metabolic acidosis , normocytic anemia likely related to etoh abuse,,tx with IVF and supplement al replacemen tmonitor labs Alcohol dependence 03137 003 F10.288 hx seizures with withdrawal witnessed clonic tonic seizurestr eated with ativan and phenobarbi talencoura ged abstinence SUDs referralmo nitor for seizure activityco ntinue thiamine 100 mg qdfolate [address] 666 mg tid Bradycardia 08693171 R00 .1 Hx of syncope with implantabl e loop recorderSB in acute care with pausescard iology and EPS consulted- ILR interrogat ed, showed no correlatio n of syncope and pauses, no need for PPM. ILR removed.re commending PSG outpatient to r/o [facility]- referral paced in [facility] Harmful pa ttern of use of cocaine 83095433 F14.10 refer to SUDsencour aged abstinence provide supportive services /refer to [facility] Homeless 12603926 Z59.00 social worker masters for support and services Asthenia 99866056 R53.1 impaired gait/weakn essPT/OT evalMorse 10 Asthma 043163512 J45.99 8 hxnot currently on medication smonitor for resp/clini aldair changes [id number] Lois Multani MD [facility] on [address] [place] [id number] 07/21/2023 05:52:30 07/27/2023 11:40:25 Asthenia 62771019 R53.1 PT/OTwill monitor Alcohol dependence 66160 003 F10.288 thiamine 100 mg dailyfolic acid 1 mg dailyacamp rosate 666 mg tldsocial work fu to encourage ongoing support and treatment Bradycardia 19655269 R00 .1 not associated with syncopewil l monitor History of seizure due to alcohol withdrawal 3206332183 98844 Z86.69 completed withdrawal protocolwi ll monitor [id number] MIKE REYNOLDS [facility] on [address] [place] [address] 07/24/2023 09:10:19 07/31/2023 15:03:51 Alcohol dependence 68865792 F10.288 there has been no seizure activity reported. hx seizures with withdrawal witnessed clonic tonic seizurestr eated with ativan and phenobarbi talencoura ged abstinence SUDs referralmo nitor for seizure activityco ntinue thiamine 100 mg qdfolate [address] 666 mg tid Laboratory test result abnormal 208851153 R89.9 In acute care rhabdo, hypokalemi a, transamini tis, hypomagnes emia , thrombocyt openia, normocytic , metabolic acidosis , normocytic anemia likely related to etoh abuse,,tx with IVF and supplement al replacemen tmonitor labs Bradycardia 90813382 R00 .1 denies any cardiac sx today. apical rate 70 Hx of syncope with implantabl e loop recorderSB in acute care with pausescard iology and EPS consulted- ILR interrogat ed, showed no correlatio n of syncope and pauses, no need for PPM. ILR removed.re commending PSG outpatient to r/o [facility]- referral paced in [facility] Harmful pa ttern of use of cocaine 08098131 F14.10 refer to SUDsencour aged abstinence provide supportive services /refer to Homeless 17164951 Z59.00 social worker masters for support and services Asthenia 82563487 R53.1 plan for OTimpaired gait/weakn ess [place] 10 Asthma 450445766 J45.99 8 hxnot currently on medication smonitor for resp/clini aldair changes [id number] MIKE REYNOLDS [facility] on [address] [place] [phone] 07/26/2023 10:31:42 07/31/2023 15:13:33 Alcohol dependence 86668090 F10.288 there has been no seizure activity reported. hx seizures with withdrawal witnessed clonic tonic seizurestr eated with ativan and phenobarbi talencoura ged abstinence SUDs referralmo nitor for seizure activityco ntinue thiamine 100 mg qdfolate [address] 666 mg tid Bradycardia 02144214 R00 .1 HR 69Hx of syncope with implantabl e loop recorderSB in acute care with pausescard iology and EPS consulted- ILR interrogat ed, showed no correlatio n of syncope and pauses, no need for PPM. ILR removed.re commending PSG outpatient to r/o R[facility]- referral paced in [facility] Harmful pa ttern of use of cocaine 69282628 F14.10 refer to SUDsencour aged abstinence provide supportive services /refer to [facility] 39450278 Z59.00 social worker masters for support and services Asthenia 43053041 R53.1 plan for OTimpaired gait/weakn ess10/11: he is ambulating with steady gait independen tly. Asthma 060621629 J45.99 8 hxnot currently on medication smonitor for resp/clini aldair changes [id number] MIKE REYNOLDS [facility] on [address] [place] [id number] 08/01/2023 09:31:41 08/08/2023 09:26:07 Alcohol dependence 24281435 F10.288 there has been no seizure activity reported. hx seizures with withdrawal witnessed clonic tonic seizurestr eated with ativan and phenobarbi talencoura ged abstinence SUDs referralmo nitor for seizure activityco ntinue thiamine 100 mg qdfolate [address] 666 mg tid Bradycardia 42842536 R00 .1 HR 69Hx of syncope with implantabl e loop recorderSB in acute care with pausescard iology and EPS consulted- ILR interrogat ed, showed no correlatio n of syncope and pauses, no need for PPM. ILR removed.re commending PSG outpatient to r/o R[facility]- referral paced in [facility] Harmful pa ttern of use of cocaine 16062121 F14.10 refer to SUDsencour aged abstinence provide supportive services /refer to Homeless 55713322 Z59.00 social worker masters for support and services Asthenia 41156818 R53.1 plan for OTimpaired gait/weakn ess07/26: he is ambulating with steady gait independen tly. Asthma 035759089 J45.99 8 hxnot currently on medication smonitor for resp/clini aldair changes [id number] MIKE REYNOLDS [facility] on [address] [place] [address] 08/04/2023 08:03:49 08/08/2023 11:32:51 Alcohol dependence 96679067 F10.288 08/04: there has been no seizure activity reported. hx seizures with withdrawal witnessed clonic tonic seizurestr eated with ativan and phenobarbi talencoura ged abstinence SUDs referralmo nitor for seizure activityco ntinue thiamine 100 mg qdfolate [address] 666 mg tid Bradycardia 73104225 R00 .1 HR 69Hx of syncope with implantabl e loop recorderSB in acute care with pausescard iology and EPS consulted- ILR interrogat ed, showed no correlatio n of syncope and pauses, no need for PPM. ILR removed.re commending PSG outpatient to r/o R[facility]- referral paced in [facility] Harmful pa ttern of use of cocaine 00897142 F14.10 refer to SUDsencour aged abstinence provide supportive services /refer to Homeless 10415883 Z59.00 social worker masters for support and services Asthenia 39685374 R53.1 plan for OTimpaired gait/weakn ess07/26: he is ambulating with steady gait independen tly.08/04: meeting goals with therapy, independen t with care. Asthma 677155031 J45.99 8 hxnot currently on medication smonitor for resp/clini aldair changes [id number] MIKE REYNOLDS [facility] on [address] [place] [address] 08/10/2023 08:14:16 08/17/2023 15:56:48 Alcohol dependence 82081395 F10.288 hx seizures with withdrawal witnessed clonic tonic seizurestr eated with ativan and phenobarbi talencoura ged abstinence SUDs referralmo nitor for seizure activityco ntinue thiamine 100 mg qdfolate [address] 666 mg tid Bradycardia 35105221 R00 .1 Hx of syncope with implantabl e loop recorderSB in acute care with pausescard iology and EPS consulted- ILR interrogat ed, showed no correlatio n of syncope and pauses, no need for PPM. ILR removed.re commending PSG outpatient to r/o R[facility]- referral paced in [facility] Harmful pa ttern of use of cocaine 59438028 F14.10 refer to SUDsencour aged abstinence provide supportive services /refer to [facility] Homeless 38169417 Z59.00 social worker masters for support and services Asthenia 82009408 R53.1 08/09/2023 : therapy goals met.He is independen t on on unit. Asthma 124032534 J45.99 8 hxnot currently on medication smonitor for resp/clini aldair changes [id number] MIKE REYNOLDS [facility] on [address] [place] [address] 08/16/2023 07:01:21 08/18/2023 08:46:19 Alcohol dependence 79192756 F10.288 08/16: There has been no reported seizurehx seizures with withdrawal witnessed clonic tonic seizurestr eated with ativan and phenobarbi talencoura ged abstinence SUDs referralmo nitor for seizure activityco ntinue thiamine 100 mg qdfolate [address] 666 mg tid Asthma 492893066 J45.99 8 08/16: Denies any shortness of breath or resp. issuesnot currently on medication smonitor for resp/clini aldair changes [id number] aDyana Sarmiento Lo [facility] on [address] [place] [address] 08/25/2023 10:10:49 08/28/2023 11:33:00 Alcohol dependence 21471962 F10.288 08/16: There has been no reported seizurehx seizures with withdrawal witnessed clonic tonic seizurestr eated with ativan and phenobarbi talencoura ged abstinence SUDs referralmo nitor for seizure activityco ntinue thiamine 100 mg qdfolate [address] 666 mg tid Asthma 362864821 J45.99 8 08/16: Denies any shortness of breath or resp. issuesnot currently on medication smonitor for resp/clini aldair changes Harmful pa ttern of use of cocaine 88740367 F14.10 follow up with outpatient carehas not used during SNF stay Homeless 54158308 Z59.00 discharge to skilled nursing Sinus bradycardia 566756 05 R00.1 resolved, HR 78 today Laboratory test result abnormal 246215375 R89.9 resolved, follow up with outpt PCP next week Health Concerns Section Related Observation LastModified by Organization Detai ls LastModified Time None Recorded Concern Status LastModified by Organization Details LastModified Time None Recorded Advance Directives Directive Y: Payers Insurance Date Sequence Insurance Name Policy Number Policy Hobbs Covered Member ID Hobbs Member ID Guarantor Name 03/21/2024 1 MEDICAID-[place]: [facility] [id number] [facility] Notes Date Note Type Note Provider Name and Address Organization Details Recorded Time 08/01/2023 text/html ROS as noted in the HPI Seen today for acute rounding visit. Past medical history remarkable for alcohol abuse dependency with withdrawal seizures, syncope with implantable loop recorder in place. [facility] 07[facility]23 from outside source with both unwitnessed and witnessed seizure; on arrival to ED he had another witnessed tonic clonic seizure associated with post ictal. He was treated with IV ativan and started on phenobarbital protocol. He was admitted for ETOH withdrawal, Rhabdo and and found to have sinus pauses. Evaluated by therapy for weakness, admitted to [facility] for continued care and rehab. On exam today he is stable, there is no acute nursing concerns. progressing toward therapy goals. MIKE REYNOLDS [address], [address], [place], [address], [facility] [employer] [facility] 08/01/2023 14:12:08 08/04/2023 text/html ROS as noted in the HPI Seen today for acute rounding visit. Past medical history remarkable for alcohol abuse dependency with withdrawal seizures, syncope with implantable loop recorder in place. Presented to [facility] on 07/08/23 from outside source with both unwitnessed and witnessed seizure; on arrival to ED he had another witnessed tonic clonic seizure associated with post ictal. He was treated with IV ativan and started on phenobarbital protocol. He was admitted for ETOH withdrawal, Rhabdo and and found to have sinus pauses. Evaluated by therapy for weakness, admitted to [facility] for continued care and rehab. He continue to be medically stable, he has been working with therapy, as of note he has progressed to independent for adl no adaptive device required. On exam he noted ambulating on unit with steady gait, he tells me that he is ok, there is no acute nursing concerns. MIKE REYNOLDS [address], [address], [place], [address], [facility] [employer] [facility] 08/04/2023 13:02:43 08/10/2023 text/html ROS as noted in the HPI Duarte is seen today for acute rounding visit. Past medical history of ETOH abuse with withdrawal seizures, cocaine abuse, asthma.He has been stable, he offers no complaints. There is no acute nursing concerns. 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 Past medical history of ETOH abuse with withdrawal seizures, cocaine abuse, asthma. Duarte is alert and verbal in NAD. He has been stable seen his last rounding visit, there is no complaints, there is no acute nursing concerns. MIKE REYNOLDS [address], [address], [place], [address], [facility] 08/16/2023 11:03:33 08/25/2023 text/html ROS as noted in the HPI Duarte is seen today for discharge. Past medical history of ETOH abuse with withdrawal seizures, cocaine abuse, asthma. Duarte is alert and verbal in NAD. He has been stable seen his last rounding visit, there is no complaints, there is no acute nursing concerns. Dayana valle [address], [address], [place], [address], [facility] 08/25/2023 10:26:05
--- OUTSIDE RECORDS SUMMARY | 2025-08-12 21:16 | XMS_ITS | Clinical Summary ---
Author Organization [facility] it Address [address] [place] [address] Care Team Providers Care Screw Driver Operator Name Role Phone Unavailable Primary Care [...]
--- OUTSIDE RECORDS SUMMARY | 2025-08-12 21:16 | XMS_ITS | Encounter Summary ---
Author Organization [facility] Address [address] [place] [address] Phone Care Team Providers Care Pig Machine Crane Operator Name Role Phone Ramin Arnold MD Primary Care Provider [phone] Encounter Details Date Type Department Care Team (Late st Contact Info) Description 11/17/2024 Procedure Pass [facility]TH [facility] PERIOP DEPT [address] [place] [address] Social History Tobacco Use Types Packs/Day Years [...] on filedocumented in this encounter Care Teams Pig Machine Crane Operator Relationship Specialty Start Date End Date Ramin Arnold MD [email or web address] PCP - General Family Medicine 05/19/20 documented as of this encounter Additional Source Comments The information contained in this document represents components of the legal health record. It is not the complete legal health record.[facility]
--- OUTSIDE RECORDS SUMMARY | 2025-08-12 21:16 | XMS_ITS | Encounter Summary ---
Author Organization [facility] Address [address] [place] [address] Phone Care Team Providers Care Fingernail Technician Name Role Phone Ramin Arnold MD Primary Care Provider Encounter Details Date Type Department Care Team ([facility] st Contact Info) Description 11/16/2024 Ophth Exam AMANDA Consult from [address] [address] Lit Price MD [address] [place] [phone] [email or web address] Social History Tobacco Use Types [...] 11/16/2024 5:00 PM Ju Hines RN * Coy Suicide Severity Rating Scale (Screener/Recent Self-Report) Question [...] on filedocumented in this encounter Care Teams Fingernail Technician Relationship Specialty Start Date End Date Ramin Arnold MD [email or web address] PCP - General Family Medicine 05/19/20 documented as of this encounter Additional Source Comments The information contained in this document represents components of the legal health record. It is not the complete legal health record.[facility]
--- OUTSIDE RECORDS SUMMARY | 2025-08-12 21:16 | XMS_ITS | Encounter Summary ---
Author Organization [facility] Address [address] [place] [address] Phone Care Team Providers Care Manager Animal Name Role Phone Ramin Arnold MD Primary Care Provider [phone] Encounter Details Date Type Department Care Team (Late st Contact Info) Description 11/16/2024 Ophth Exam AMANDA Oph Trauma [address] [place] [address] Laurence Coelho MD [address] [place] [address] [email or web address] Social History Tobacco Use Types [...] 11/16/2024 5:00 PM Ju Hines RN * [place] Suicide Severity Rating Scale (Screener/Recent Self-Report) Question [...] on filedocumented in this encounter Care Teams Manager Animal Relationship Specialty Start Date End Date Ramin Arnold MD [email or web address] PCP - General Family Medicine 05/19/20 documented as of this encounter Additional Source Comments The information contained in this document represents components of the legal health record. It is not the complete legal health record.[facility]
--- OUTSIDE RECORDS SUMMARY | 2025-08-12 21:16 | XMS_ITS | Encounter Summary ---
Author Organization [facility] Address [address] [place] [address] Phone Care Team Providers Care Materials And Corrosion Engineer Name Role Phone Ramin Arnold MD Primary Care Provider [phone] Encounter Details Date Type Department Care Team (Late st Contact Info) Description 05/21/2020 Transcribe Orders [facility] Specimen Processing [address] [place], [place] [id number] Ramin Arnold MD [address] [place] [address] [address] [place] [address] [email or web address] COVID-19 ruled out (Primary Dx) [...] 5:36 PM EDT) Specimen Source NASOPHARYNGEAL SWAB (AUCTION ASSISTANT) [facility] COVID Testing Status Sent to [facility] Other 05/21/2020 5:36 PM EDT 05/21/2020 5:47 PM EDT us Ramin Arnold MD BODY FLUIDS AND STOOLS ORDERABLE S Final Result [facility] [address] [place] [address] documented in this encounter Visit Diagnoses Diagnosis COVID-19 ruled out- Primary documented in this encounter Additional Health Concerns Infection Onset Date Last Indicated Resolved Time CoV-Exposed Comment:Recent close contact 05/21/2020 05/21/2020 06/04/2020 1:23 AM EDT CoV-Exposed Comment:Recent close contact 06/04/2020 06/04/2020 06/18/2020 1:24 AM EDT CoV-Exposed Comment:Recent close contact 08/26/2020 08/26/2020 09/09/2020 1:24 AM EST documented as of this encounter Care Teams Materials And Corrosion Engineer Relationship Specialty Start Date End Date Ramin Arnold MD [email or web address] PCP - General Family Medicine 05/19/20 documented as of this encounter Additional Source Comments The information contained in this document represents components of the legal health record. It is not the complete legal health record.[facility]
--- OUTSIDE RECORDS SUMMARY | 2025-08-12 21:16 | XMS_ITS | Clinical Summary ---
Author Organization [facility] Address [address] [place] [address] Phone Care Team Providers Care Event Specialist Food Demonstrator Name Role Phone Ramin Arnold MD Primary Care Provider [phone] Allergies Active Allergy Reactions Criticality Noted Date [...] Advance Directives For more information, please contact: [phone] (9AM - 5PM Sil/[facility], Monday-Monday) * Full Code (Latest Code Status on File) Date Activated Date Inactivated Comments 11/16/2024 5:47 PM Question Answer Comments Code Status Confirmed With: Patient * Full Code Date Activated Date Inactivated Comments 11/16/2024 5:45 PM 11/16/2024 5:47 PM Question Answer Comments Code Status Confirmed With: Other (specify below ) Care Teams Event Specialist Food Demonstrator Relationship Specialty Start Date End Date Ramin Arnold MD [email or web address] PCP - General Family Medicine 05/19/20 Additional Source Comments The information contained in this document represents components of the legal health record. It is not the complete legal health record.[facility]
--- NOTE | 2025-08-12 21:22 | PC.NURSE ---
Belongings locked and placed in shelf 2. Pt changed over by security and communications technologist.
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
[2025-08-13 04:00] VITALS: RESP 18
[2025-08-13 06:25] VITALS: BP 106/62; PULSE 63; RESP 15; TEMP 37; O2SAT 93
--- NOTE | 2025-08-13 09:05 | PC.NURSE ---
Pt ambulatory with a steady gait around unit with train control technician, pt safe for discharge home.
[2025-08-13 09:18] VITALS: BP 106/62; PULSE 63; RESP 15; TEMP 37; O2SAT 93
== END 2025-08-13 09:41 | disposition home or self-care (01) ==
PROVIDERS: Emergency Provider Emergency Medicine
DX: F10.920 Alcohol use, unspecified with intoxication, uncomplicated (principal); D50.9 Iron deficiency anemia, unspecified; Z91.81 History of falling; Z87.891 Personal history of nicotine dependence
CPT/HCPCS: 99284

== ENCOUNTER 2025-08-17 19:52 | Emergency (ER) | payer MEDICAID, SELFPAY ==
[2025-08-17 20:09] VITALS: BP 119/77; BP 123/93; PULSE 66; PULSE 82; RESP 14; TEMP 36.8; O2SAT 94; O2SAT 96; BMI 22.1
[2025-08-17 20:13] VITALS: PULSE 66
--- OUTSIDE RECORDS SUMMARY | 2025-08-17 20:27 | XMS_ITS | Encounter Summary ---
Author Organization [facility] Address [address] [place] [address] Phone Care Team Providers Care Memory Care Program Resident Name Role Phone Ramin Arnold MD Primary Care Provider Encounter Details Date Type Department Care Team (Late st Contact Info) Description 11/17/2024 Procedure Pass AMANDA [address] PERIOP DEPT [address] [place] [address] Social History Tobacco Use Types Packs/Day Years [...] on filedocumented in this encounter Care Teams Memory Care Program Resident Relationship Specialty Start Date End Date Ramin Arnold MD [email or web address] PCP - General Family Medicine 05/19/20 documented as of this encounter Additional Source Comments The information contained in this document represents components of the legal health record. It is not the complete legal health record.[facility]
--- OUTSIDE RECORDS SUMMARY | 2025-08-17 20:27 | XMS_ITS | Encounter Summary ---
Author Organization [facility] Address [address] [place] [address] Phone Care Team Providers Care Route Rider Supervisor Name Role Phone Ramin Arnold MD Primary Care Provider [phone] Encounter Details Date Type Department Care Team ([facility] st Contact Info) Description 11/16/2024 Ophth Exam AMANDA Consult from [address] [address] Lit Price MD [address] [place] [address] [email or web address] Social History Tobacco Use Types Packs/Day [...] 11/16/2024 5:00 PM Ju Hines RN * [place] Suicide Severity Rating Scale (Screener/Recent Self-Report) Question Answer Date of Assessment Author 1. Wish to be (Past 1 Month) No 025 5:00 PM Ju Hines RN 2. Non-Specific Active Suici jennifer Thoughts (Past 1 Month) No 11/16/2024 5:00 PM uJ Hines, STEFFANY 6. Suicidal Behavior (Lifetime) No 5:00 PM Ju Hines, STEFFANY documented as of this encounter Plan of Treatment Not on file documented as of this encounter Visit Diagnoses Not on filedocumented in this encounter Care Teams Route Rider Supervisor Relationship Specialty Start Date End Date Ramin Arnold MD [email or web address] PCP - General Family Medicine 05/19/20 documented as of this encounter Additional Source Comments The information contained in this document represents components of the legal health record. It is not the complete legal health record.[facility]
--- OUTSIDE RECORDS SUMMARY | 2025-08-17 20:27 | XMS_ITS | Encounter Summary ---
Author Organization [facility] Address [address] [place] [address] Phone Care Team Providers Care Rn Or Lvn Name Role Phone Ramin Arnold MD Primary Care Provider [phone] Encounter Details Date Type Department Care Team (Late st Contact Info) Description 11/16/2024 Ophth Exam AMANDA Oph Trauma [address] [place] [place] [address] Laurence Coelho MD [address] [place] [address] [email or web address] Social History Tobacco Use Types [...] on filedocumented in this encounter Care Teams Rn Or Lvn Relationship Specialty Start Date End Date Ramin Arnold MD [email or web address] PCP - General Family Medicine 05/19/20 documented as of this encounter Additional Source Comments The information contained in this document represents components of the legal health record. It is not the complete legal health record.[facility]
--- OUTSIDE RECORDS SUMMARY | 2025-08-17 20:28 | XMS_ITS | Data Portability ---
Author Organization [facility], Main Office Address [address], [address] [place] [address] Care Team Providers Care Aircraft Skin Burnisher Name Role Phone [facility] OTHER Assessment Encounter Date [...] Address Organization Details Recorded Time Alcohol dependence 10361230 Active 2019 Riri harman, [facility] 0 10:55:15 Alcohol dependence 10203407 Active 2019 Riri Espinal null, [facility] 0 10:55:21 Sinus bradycardia 35121628 Active 2019 Riri harman, [facility] 0 10:55:22 Asthma 592546116 Active 2019 Riri harman, [facility] 0 10:55:25 Harmful pattern of use of cocaine 57599470 Active 2022 JESSICADOROTA HALEY, COLLECTIVE BARGAINING SPECIALIST [address] , [address], [place], [address], [facility] 3 17:51:39 Homeless 76858459 Active 2022 JESSICADOROTA HALEY, [facility] [address], [address], [place], [address], [facility] 3 18:07:02 Asthenia 24261808 Active 2022 JESSICADOROTA HALEY, [facility] [address], [address], [place], [address], [facility] 3 18:07:05 Bradycardia 39841228 Active 2022 JESSICA HALEY, [facility] [address], [address], [place], [address], [facility] 3 18:07:11 Laboratory test result abnormal 326372003 Active 2022 JESSICADOROTA HALEY, [facility] [address], [address], [place], [address], [facility] 3 18:07:15 Problem Notes None recorded. Medical Equipment None Reported. Allergies Allergen ID Allergen Name Allergen Category Reaction Reaction Severity Criticality Documentation Date Start Date Code Code System Note Provider Name and Address Organization Details Recorded Time 93955 shellfish derived food,medi cation Not available Not available Not available 05/19/2020 Riri harman, [facility] 0 08:43:01 Medications Not known to be on any medication Vitals Date Recorded Heart rate Respiratory rate Body temperature Oxygen saturation Oxygen saturation in Arterial blood by Pulse oximetry Systolic And Diastolic Provider Name and Address Organization Details Last Updated DateTime 3 78 /min 18 /min 97.4 [degF] 99 % 99 % 115/67 mm[Hg] Dayana Sarmiento -Kierkla [address], [address], [place], [address], [facility] 3 10:21:31 Social History Question Answer Notes LastModified by Organizat ion Details LastModified Time Tobacco Smoking Status Current Every Day Smoker 2 a day MIKE REYNOLDS [address], [address], [place], [address], [facility] 07/19/2023 17:16:49 Do You Have An Advance Directive? Yes Information not available 07/19/2023 What Is Your Code Status? Full Code Information not available 07/19/2023 Which Illicit Or Recreational Drugs Have You Used? Crack Cocaine Information not available 07/19/2023 Where Do You Live? Other Homeless Information not available 07/19/2023 Legal Guardian? No Informati on not available 07/19/2023 Do You Have A Medical Power Of Rug Underlay Machine Operator? No Information not available 07/19/2023 What Was [...] anxious, or unable to sleep at night)? [id number] Information not available 07/19/2023 Family History Relationship [...] 25mcg/0.25 mL dose 2 completed Nicole harman [facility] 10/17/2023 11:43:55 Tdap 2 completed Nicole harman [facility] 01/22/2024 14:21:00 Td (adult), 5 Lf tetanus toxoid, preservative free, adsorbed 7 completed Nicole harman [facility] 01/22/2024 14:21:20 Td (adult), 5 Lf tetanus toxoid, preservative free, adsorbed 8 completed Nicole harman [facility] 01/22/2024 14:21:35 pneumococcal polysaccharide PPV23 8 completed Nicole harman [facility] 01/22/2024 14:21:54 pneumococcal polysaccharide PPV23 6 completed Nicole harman [facility] 01/22/2024 14:22:04 Influenza, adjuvanted, quadrivalent, PF 3 completed Nicole harman [place] [facility] 01/22/2024 14:23:02 Past Encounters Encounter ID Performer Location Encounter Start Date Encounter Closed Date Diagnosis/Indication Diagnosis SNOMED-CT Code Diagnosis ICD10 Code Diagnosis IMO Codes Diagnosis Note [id number] MIKE Chen [facility] on [address] [place] [id number] 05/19/2020 08:42:26 05/29/2020 13:18:57 Alcohol dependence 83771068 F10.288 Hx of withdrawal seizuresFo lic acid 1 mg dailyThiam ine 100 mg dailyPT OT eval and treat Sinus bradycardia 761680 05 R00.1 Implanted administrative office specialist in placeF/u with cardiology Monitor HR Asthma 419009914 J45.99 8 Monitor respirator y status Liver enzy mes level above reference range 082741402 R74.8 Secondary to heavy ETOH useRepeat and monitor [id number] Lois Multani MD [facility] on [address] [place] [id number] 05/20/2020 07:06:00 05/29/2020 14:50:19 Alcohol dependence 01592443 F10.20 thiamine 100 mg dailyfolic acid 1 mg dailysocia l work fu to encourage ongoing support and treatment Asthenia 10112203 R53.1 PT/OTwill monitor Liver enzy mes level above reference range 808316142 R74.8 will monitor Sinus bradycardia 402601 05 R00.1 resolvedwi ll monitor [id number] MIKE Chen [facility] on [address] [place] [id number] 05/26/2020 09:30:59 05/29/2020 13:59:21 Alcohol dependence 52565488 F10.288 Hx of withdrawal seizuresFo lic acid 1 mg dailyThiam ine 100 mg dailyNo sxs of withdrawal noted Sinus bradycardia 234788 05 R00.1 Implanted administrative office specialist in placeF/u with cardiology Monitor HR-ranges 58-88 Asthma 596337812 J45.99 8 Monitor respirator y statusOn no medication s [id number] MIKE Chen [facility] on [address] [place] [id number] 06/12/2020 08:31:05 06/16/2020 10:01:54 Alcohol dependence 47691153 F10.288 Hx of withdrawal seizuresFo lic acid 1 mg dailyThiam ine 100 mg dailyNo signs of withdrawal currently Sinus bradycardia 718572 05 R00.1 Implanted administrative office specialist in placeF/u with cardiology Monitor HR Asthma 487835399 J45.99 8 Monitor respirator y status Liver enzy mes level above reference range 445956610 R74.8 Secondary to heavy ETOH useRepeat LFTs 06/15 [id number] Riri Espinal [facility] on [address] [place] [id number] 06/16/2020 11:47:30 06/18/2020 11:34:00 Alcohol dependence 47184820 F10.288 Hx of withdrawal seizuresFo lic acid 1 mg dailyThiam ine 100 mg dailyNo signs of withdrawal Encouraged to remain sober Sinus bradycardia 628544 05 R00.1 Implanted administrative office specialist in placeRemai ns asymptomat ic F/u with cardiology Asthma 012296907 J45.99 8 No respirator y issues currentlyF /u with PCP Liver enzy mes level above reference range 962837030 R74.8 Secondary to heavy ETOH useNow resolved [id number] JESSICA HALEY [facility] on [address] [place] [id number] 07/19/2023 15:26:02 07/27/2023 10:51:11 Laboratory test result abnormal 206663699 R89.9 In acute care rhabdo, hypokalemi a, transamini tis, hypomagnes emia , thrombocyt openia, normocytic , metabolic acidosis , normocytic anemia likely related to etoh abuse,,tx with IVF and supplement al replacemen tmonitor labs Alcohol dependence 15076 003 F10.288 hx seizures with withdrawal witnessed clonic tonic seizurestr eated with ativan and phenobarbi talencoura ged abstinence SUDs referralmo nitor for seizure activityco ntinue thiamine 100 mg qdfolate [address] 666 mg tid Bradycardia 39769793 R00 .1 Hx of syncope with implantabl e loop recorderSB in acute care with pausescard iology and EPS consulted- ILR interrogat ed, showed no correlatio n of syncope and pauses, no need for PPM. ILR removed.re commending PSG outpatient to r/o [facility]- referral paced in [facility] Harmful pa ttern of use of cocaine 40067023 F14.10 refer to SUDsencour aged abstinence provide supportive services /refer to [facility] Homeless 15358183 Z59.00 social sciences research scientist for support and services Asthenia 19151266 R53.1 impaired gait/weakn essPT/OT evalMorse 10 Asthma 840901024 J45.99 8 hxnot currently on medication smonitor for resp/clini aldair changes [id number] Lois Multani MD [facility] on [address] [place] [id number] 07/21/2023 05:52:30 07/27/2023 11:40:25 Asthenia 92870842 R53.1 PT/OTwill monitor Alcohol dependence 00911 003 F10.288 thiamine 100 mg dailyfolic acid 1 mg dailyacamp rosate 666 mg tldsocial work fu to encourage ongoing support and treatment Bradycardia 37036193 R00 .1 not associated with syncopewil l monitor History of seizure due to alcohol withdrawal 8392064631 81933 Z86.69 completed withdrawal protocolwi ll monitor [id number] MIKE REYNOLDS [facility] on [address] [place] [id number] 07/24/2023 09:10:19 07/31/2023 15:03:51 Alcohol dependence 58377970 F10.288 there has been no seizure activity reported. hx seizures with withdrawal witnessed clonic tonic seizurestr eated with ativan and phenobarbi talencoura ged abstinence SUDs referralmo nitor for seizure activityco ntinue thiamine 100 mg qdfolate [address] 666 mg tid Laboratory test result abnormal 931057444 R89.9 In acute care rhabdo, hypokalemi a, transamini tis, hypomagnes emia , thrombocyt openia, normocytic , metabolic acidosis , normocytic anemia likely related to etoh abuse,,tx with IVF and supplement al replacemen tmonitor labs Bradycardia 91523873 R00 .1 denies any cardiac sx today. apical rate 70 Hx of syncope with implantabl e loop recorderSB in acute care with pausescard iology and EPS consulted- ILR interrogat ed, showed no correlatio n of syncope and pauses, no need for PPM. ILR removed.re commending PSG outpatient to r/o R[facility]- referral paced in [facility] Harmful pa ttern of use of cocaine 06735345 F14.10 refer to SUDsencour aged abstinence provide supportive services /refer to Homeless 76761946 Z59.00 social sciences research scientist for support and services Asthenia 35900354 R53.1 plan for OTimpaired gait/weakn ess Pineda 10 Asthma 498007535 J45.99 8 hxnot currently on medication smonitor for resp/clini aldair changes [id number] MIKE REYNOLDS [facility] on [address] [place] [id number] 07/26/2023 10:31:42 07/31/2023 15:13:33 Alcohol dependence 81305652 F10.288 there has been no seizure activity reported. hx seizures with withdrawal witnessed clonic tonic seizurestr eated with ativan and phenobarbi talencoura ged abstinence SUDs referralmo nitor for seizure activityco ntinue thiamine 100 mg qdfolate [address] 666 mg tid Bradycardia 53448267 R00 .1 HR 69Hx of syncope with implantabl e loop recorderSB in acute care with pausescard iology and EPS consulted- ILR interrogat ed, showed no correlatio n of syncope and pauses, no need for PPM. ILR removed.re commending PSG outpatient to r/o R[facility]- referral paced in [facility] Harmful pa ttern of use of cocaine 76222142 F14.10 refer to SUDsencour aged abstinence provide supportive services /refer to [facility] 41375414 Z59.00 social sciences research scientist for support and services Asthenia 30024757 R53.1 plan for OTimpaired gait/weakn ess10/11: he is ambulating with steady gait independen tly. Asthma 797398004 J45.99 8 hxnot currently on medication smonitor for resp/clini aldair changes [id number] MIKE REYNOLDS [facility] on [address] [place] [id number] 08/01/2023 09:31:41 08/08/2023 09:26:07 Alcohol dependence 48488290 F10.288 there has been no seizure activity reported. hx seizures with withdrawal witnessed clonic tonic seizurestr eated with ativan and phenobarbi talencoura ged abstinence SUDs referralmo nitor for seizure activityco ntinue thiamine 100 mg qdfolate [address] 666 mg tid Bradycardia 36462596 R00 .1 HR 69Hx of syncope with implantabl e loop recorderSB in acute care with pausescard iology and EPS consulted- ILR interrogat ed, showed no correlatio n of syncope and pauses, no need for PPM. ILR removed.re commending PSG outpatient to r/o [facility]- referral paced in [facility] Harmful pa ttern of use of cocaine 28706572 F14.10 refer to SUDsencour aged abstinence provide supportive services /refer to Homeless 65411009 Z59.00 social sciences research scientist for support and services Asthenia 47718462 R53.1 plan for OTimpaired gait/weakn ess07/26: he is ambulating with steady gait independen tly. Asthma 056427968 J45.99 8 hxnot currently on medication smonitor for resp/clini aldair changes [id number] MIKE REYNOLDS [facility] on [address] [place] [address] 08/04/2023 08:03:49 08/08/2023 11:32:51 Alcohol dependence 67367559 F10.288 08/04: there has been no seizure activity reported. hx seizures with withdrawal witnessed clonic tonic seizurestr eated with ativan and phenobarbi talencoura ged abstinence SUDs referralmo nitor for seizure activityco ntinue thiamine 100 mg qdfolate [address] 666 mg tid Bradycardia 29590401 R00 .1 HR 69Hx of syncope with implantabl e loop recorderSB in acute care with pausescard iology and EPS consulted- ILR interrogat ed, showed no correlatio n of syncope and pauses, no need for PPM. ILR removed.re commending PSG outpatient to r/o R[facility]- referral paced in [facility] Harmful pa ttern of use of cocaine 88856667 F14.10 refer to SUDsencour aged abstinence provide supportive services /refer to Homeless 47892452 Z59.00 social sciences research scientist for support and services Asthenia 39899230 R53.1 plan for OTimpaired gait/weakn ess07/26: he is ambulating with steady gait independen tly.08/04: meeting goals with therapy, independen t with care. Asthma 101101893 J45.99 8 hxnot currently on medication smonitor for resp/clini aldair changes [id number] MIKE REYNOLDS [facility] on [address] [place] [id number] 08/10/2023 08:14:16 08/17/2023 15:56:48 Alcohol dependence 77019358 F10.288 hx seizures with withdrawal witnessed clonic tonic seizurestr eated with ativan and phenobarbi talencoura ged abstinence SUDs referralmo nitor for seizure activityco ntinue thiamine 100 mg qdfolate [address] 666 mg tid Bradycardia 08075043 R00 .1 Hx of syncope with implantabl e loop recorderSB in acute care with pausescard iology and EPS consulted- ILR interrogat ed, showed no correlatio n of syncope and pauses, no need for PPM. ILR removed.re commending PSG outpatient to r/o [facility]- referral paced in [facility] Harmful pa ttern of use of cocaine 26352566 F14.10 refer to SUDsencour aged abstinence provide supportive services /refer to [facility] Homeless 73990414 Z59.00 social sciences research scientist for support and services Asthenia 13269462 R53.1 08/09/2023 : therapy goals met.He is independen t on on unit. Asthma 898230057 J45.99 8 hxnot currently on medication smonitor for resp/clini aldair changes [id number] MIKE REYNOLDS [facility] on [address] [place] [id number] 08/16/2023 07:01:21 08/18/2023 08:46:19 Alcohol dependence 01561856 F10.288 08/16: There has been no reported seizurehx seizures with withdrawal witnessed clonic tonic seizurestr eated with ativan and phenobarbi talencoura ged abstinence SUDs referralmo nitor for seizure activityco ntinue thiamine 100 mg qdfolate [address] 666 mg tid Asthma 556260094 J45.99 8 08/16: Denies any shortness of breath or resp. issuesnot currently on medication smonitor for resp/clini aldair changes [id number] Dayana Sarmiento Lo [facility] on [address] [place] [address] 08/25/2023 10:10:49 08/28/2023 11:33:00 Alcohol dependence 21101627 F10.288 08/16: There has been no reported seizurehx seizures with withdrawal witnessed clonic tonic seizurestr eated with ativan and phenobarbi talencoura ged abstinence SUDs referralmo nitor for seizure activityco ntinue thiamine 100 mg qdfolate [address] 666 mg tid Asthma 529651445 J45.99 8 08/16: Denies any shortness of breath or resp. issuesnot currently on medication smonitor for resp/clini aldair changes Harmful pa ttern of use of cocaine 58076928 F14.10 follow up with outpatient carehas not used during SNF stay Homeless 16880914 Z59.00 discharge to retirement Sinus bradycardia 942447 05 R00.1 resolved, HR 78 today Laboratory test result abnormal 175336023 R89.9 resolved, follow up with outpt PCP next week Health Concerns Section Related Observation LastModified by Organization Detai ls LastModified Time None Recorded Concern Status LastModified by Organization Details LastModified Time None Recorded Advance Directives Directive Y: Payers Insurance Date Sequence Insurance Name Policy Number Policy Hobbs Covered Member ID Hobbs Member ID Guarantor Name 03/21/2024 1 [place] [facility] [id number] [facility] Notes Date Note Type Note Provider Name and Address Organization Details Recorded Time 08/01/2023 text/html ROS as noted in the HPI Seen today for acute rounding visit. Past medical history remarkable for alcohol abuse dependency with withdrawal seizures, syncope with implantable loop recorder in place. Presented to [facility] on 07/08/23 from outside source with both unwitnessed and witnessed seizure; on arrival to ED he had another witnessed tonic clonic seizure associated with post ictal. He was treated with IV ativan and started on phenobarbital protocol. He was admitted for ETOH withdrawal, Rhabdo and and found to have sinus pauses. Evaluated by therapy for weakness, admitted to [facility] for continued care and rehab. On exam today he is stable, there is no acute nursing concerns. progressing toward therapy goals. MIKE REYNOLDS [address], [address], [place], [address], [facility] 08/01/2023 14:12:08 08/04/2023 text/html ROS as noted in the HPI Seen today for acute rounding visit. Past medical history remarkable for alcohol abuse dependency with withdrawal seizures, syncope with implantable loop recorder in place. Presented to [facility] on 07/08/23 from outside source with both unwitnessed and witnessed seizure; on arrival to ED he had another witnessed tonic clonic seizure associated with post ictal. He was treated with IV ativan and started on phenobarbital protocol. He was admitted for ETOH withdrawal, Rhabdo and and found to have sinus pauses. Evaluated by therapy for weakness, admitted [facility] for continued care and rehab. He continue to be medically stable, he has been working with therapy, as of note he has progressed to independent for adl no adaptive device required. On exam he noted ambulating on unit with steady gait, he tells me that he is ok, there is no acute nursing concerns. MIKE REYNOLDS [address], [address], [place], [address], [facility] 08/04/2023 13:02:43 08/10/2023 text/html ROS as noted in the HPI Duarte is seen today for acute rounding visit. Past medical history of ETOH abuse with withdrawal seizures, cocaine abuse, asthma.He has been stable, he offers no complaints. There is no acute nursing concerns. 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 Past medical history of ETOH abuse with withdrawal seizures, cocaine abuse, asthma. Duarte is alert and verbal in NAD. He has been stable seen his last rounding visit, there is no complaints, there is no acute nursing concerns. MIKE REYNOLDS [address], [address], [place], [address], [facility] 08/16/2023 11:03:33 08/25/2023 text/html ROS as noted in the HPI Duarte is seen today for discharge. Past medical history of ETOH abuse with withdrawal seizures, cocaine abuse, asthma. Duarte is alert and verbal in NAD. He has been stable seen his last rounding visit, there is no complaints, there is no acute nursing concerns. Dayana valle [address], [address], [place], [address], [facility] 08/25/2023 10:26:05
--- OUTSIDE RECORDS SUMMARY | 2025-08-17 20:28 | XMS_ITS | Encounter Summary ---
Author Organization [facility] Address [address] [place] [address] Phone Care Team Providers Care Biosecurity Officer Name Role Phone Ramin Arnold MD Primary Care Provider [phone] Encounter Details Date Type Department Care Team (Late st Contact Info) Description 11/19/2024 Ophth Exam AMANDA Oph [facility] [address] [place] [address] Laurence Coelho MD [address] [place] [phone] [email or web address] Social History Tobacco Use Types [...] on filedocumented in this encounter Care Teams Biosecurity Officer Relationship Specialty Start Date End Date Ramin Arnold MD [email or web address] PCP - General Family Medicine 05/19/20 documented as of this encounter Additional Source Comments The information contained in this document represents components of the legal health record. It is not the complete legal health record.[facility]
--- OUTSIDE RECORDS SUMMARY | 2025-08-17 20:28 | XMS_ITS | Clinical Summary ---
Author Organization [facility] it Address [address] [place] [address] Care Team Providers Care Pens And Pencils Dipper Name Role Phone Unavailable Primary Care Provider [...]
--- OUTSIDE RECORDS SUMMARY | 2025-08-17 20:28 | XMS_ITS | Encounter Summary ---
Author Organization [facility] Address [address] [place] [address] Phone Care Team Providers Care Loading Unit Tool Setter Name Role Phone Ramin Arnold MD Primary Care Provider Encounter Details Date Type Department Care Team (Late st Contact Info) Description 11/16/2024 Procedure Pass [facility] [address] [facility], 2nd Floor, [address] [place] [address] Social History Tobacco Use Types Packs/Day Years [...] 11/16/2024 5:00 PM Ju Hines RN * [place] Suicide Severity Rating Scale (Screener/Recent Self-Report) Question [...] on filedocumented in this encounter Care Teams Loading Unit Tool Setter Relationship Specialty Start Date End Date Ramin Arnold MD PCP - General Family Medicine 05/19/20 documented as of this encounter Additional Source Comments The information contained in this document represents components of the legal health record. It is not the complete legal health record.[facility]
--- OUTSIDE RECORDS SUMMARY | 2025-08-17 20:28 | XMS_ITS | Encounter Summary ---
Author Organization [facility] Address [address] [place] [address] Phone Care Team Providers Care Transit Planner Name Role Phone Ramin Arnold MD Primary Care Provider [phone] Encounter Details Date Type Department Care Team (Late st Contact Info) Description 05/21/2020 Transcribe Orders [facility] Specimen Processing [address] [place] [address] Ramin Arnold MD [address] [place] [address] [address], [address] [place] [address] [email or web address] COVID-19 ruled out (Primary Dx) [...] 5:36 PM EDT) Specimen Source NASOPHARYNGEAL SWAB (OBIEE OBIA SOLUTION ARCHITECT) [facility] COVID Testing Status Sent to [facility] Other 05/21/2020 5:36 PM EDT 05/21/2020 5:47 PM EDT us Ramin Arnold MD LAB GENERAL ORDERABLES Final Res ult [facility] [address] [place] [address] documented in this encounter Visit Diagnoses Diagnosis COVID-19 ruled out- Primary documented in this encounter Additional Health Concerns Infection Onset Date Last Indicated Resolved Time CoV-Exposed Comment:Recent close contact 05/21/2020 05/21/2020 06/04/2020 1:23 AM EDT CoV-Exposed Comment:Recent close contact 06/04/2020 06/04/2020 06/18/2020 1:24 AM EDT CoV-Exposed Comment:Recent close contact 08/26/2020 08/26/2020 09/09/2020 1:24 AM EST documented as of this encounter Care Teams Transit Planner Relationship Specialty Start Date End Date Ramin Arnold MD [email or web address] PCP - General Family Medicine 05/19/20 documented as of this encounter Additional Source Comments The information contained in this document represents components of the legal health record. It is not the complete legal health record.[facility]
--- OUTSIDE RECORDS SUMMARY | 2025-08-17 20:28 | XMS_ITS | Clinical Summary ---
Author Organization [facility] Address [address] [place] [address] Phone Care Team Providers Care Lead Software Qa Engineer Name Role Phone Ramin Arnold MD Primary Care Provider [phone] Allergies Active Allergy Reactions Criticality Noted Date [...] Advance Directives For more information, please contact: [phone] (9AM - 5PM Sil/[facility], Monday-Monday) * Full Code (Latest Code Status on File) Date Activated Date Inactivated Comments 11/16/2024 5:47 PM Question Answer Comments Code Status Confirmed With: Patient * Full Code Date Activated Date Inactivated Comments 11/16/2024 5:45 PM 11/16/2024 5:47 PM Question Answer Comments Code Status Confirmed With: Other (specify below ) Care Teams Lead Software Qa Engineer Relationship Specialty Start Date End Date Ramin Arnold MD [email or web address] PCP - General Family Medicine 05/19/20 Additional Source Comments The information contained in this document represents components of the legal health record. It is not the complete legal health record.[facility]
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
[2025-08-18 03:01] VITALS: PULSE 56; RESP 13
--- NOTE | 2025-08-18 03:02 | PC.NURSE ---
Pt is sleeping at the bedside. No apparent distress noted. Breaths are even regular and unlabored with equal chest rises. Sinus avril on monitor with HR 58. Monitoring is ongoing.
[2025-08-18 06:22] VITALS: BP 105/65; PULSE 92; RESP 13; TEMP 36.6; O2SAT 96
[2025-08-18 06:59] VITALS: BP 105/65; PULSE 92; RESP 13; TEMP 36.6; O2SAT 96
== END 2025-08-18 07:26 | disposition home or self-care (01) ==
PROVIDERS: Emergency Provider Emergency Medicine
DX: F10.129 Alcohol abuse with intoxication, unspecified (principal); Y90.9 Presence of alcohol in blood, level not specified
CPT/HCPCS: 99283; 99284

== ENCOUNTER 2025-08-23 18:51 | Emergency (ER) | payer MEDICAID, SELFPAY ==
--- NOTE | ~2025-08-23 | CT_ITS ---
CLINICAL HISTORY: neck pain post fall CT cervical spine without contrast Comparison: CT/SR - CT CERVICAL SPINE WO IV CON - 08/09/25 00:00 EDT Findings: Exaggeration of the cervical lordosis. No significant degenerative change. No acute fractures or dislocations. Visualized intracranial contents are unremarkable. Soft tissues of the neck are normal. Lung apices are clear. IMPRESSION: No acute findings. This document has been electronically signed by: Sai Lange MD on 08/23/2025 22:15:31
--- NOTE | ~2025-08-23 | CT_ITS ---
CLINICAL HISTORY: head injury CT head without contrast Comparison: CT/REG/SR - CT HEAD/BRAIN WO IV CON - 08/09/25 00:00 EDT Findings: Scattered subcortical and periventricular hypoattenuation, likely in keeping with chronic small vessel ischemic disease. Parenchymal volume loss with compensatory prominence of the ventricles and CSF spaces. No acute territorial infarction, intracranial hemorrhage, midline shift or hydrocephalus. Encephalomalacia/gliosis in the right frontal insular region redemonstrated. The visualized paranasal sinuses and mastoid air cells are normal. The orbits are within normal limits. There is no acute fracture. Similar radiopaque foreign body in the right temporal fossa. IMPRESSION: 1. No acute intracranial hemorrhage or territorial infarction. 2. Additional findings as described. This document has been electronically signed by: Sai Lange MD on 08/23/2025 22:16:54
[2025-08-23 18:59] VITALS: PULSE 95; O2SAT 95; BMI 22.9
[2025-08-23 19:06] VITALS: BP 122/80; PULSE 81; RESP 18; TEMP 36.9; O2SAT 95
--- NOTE | 2025-08-23 19:07 | PC.NURSE ---
When this RN was assessing the pt for SI thoughts, pt refused to answer and stated, I don't want to answer that right now. RN repeated the assessment and pt refused again. wildlife control agent aware.
--- NOTE | 2025-08-23 19:23 | MHC.EDTECH ---
Pt belongings are in the tosin port on shelf 3. The pt has 3 bags in total
[2025-08-23 20:13] LABS: Alanine Aminotransferase 73 U/L (0-40); Albumin Level 4.1 g/dL (3.5-5.0); Alkaline Phosphatase 90 U/L (39-117); Anion Gap 14 (12-20); Aspartate Amino Transferase 172 U/L (5-37); Blood Urea Nitrogen 6 mg/dL (9-16); Calcium 8.2 mg/dL (8.4-10.2); Carbon Dioxide 28 mmol/L (22-29); Chloride 108 mmol/L (96-108); Creatinine Clr Calc Pharmacy 139.6; Estimated Glomerular Filt Rate > 60; Magnesium 1.8 mg/dL (1.6-2.6); Potassium 3.4 mmol/L (3.3-5.1); Sodium 147 mmol/L (135-145); Total Protein 7.9 g/dL (6.5-8.0)
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
[2025-08-23 20:21] LABS: Hemoglobin 11.5 g/dl (14.0-18.0); Imm Gran Abs Auto 0.01 X10*3/uL (0.00-0.03); Imm Gran Pct Auto 0.5 % (0.0-0.4); MANUAL DIFF FLAG SCAN; Mean Corpuscular Volume 94.8 fL (80.0-98.0); NRBC Abs Auto 0.020 X10*3/uL (0.0-0.012); PLT CLUMP 1; SCAN SMEAR FLAG 1
[2025-08-23 20:23] LABS: Hematocrit 34.4 % (42.0-52.0); Lymphocytes Absolute Auto 1.1 X10*3/uL (1.2-4.9); Mean Corpuscular HGB Conc 33.4 g/dl (31.0-36.0); Mean Corpuscular Hemoglobin 31.7 pg (27.0-33.0); Red Blood Count 3.63 X10*6/uL (4.60-5.80)
--- OUTSIDE RECORDS SUMMARY | 2025-08-23 20:40 | XMS_ITS | Encounter Summary ---
Author Organization [facility] Address [address] [place] [address] Phone Care Team Providers Care Overlock Operator Name Role Phone Ramin Arnold MD Primary Care Provider [phone] Encounter Details Date Type Department Care Team ([facility] st Contact Info) Description 11/16/2024 Ophth Exam AMANDA Consult from [address] [address] Lit Price MD [address] [place] [id number] [email or web address] Social History Tobacco Use Types Packs/Day Years [...] 11/16/2024 5:00 PM Ju Hines RN * [place] Suicide Severity Rating Scale (Screener/Recent Self-Report) Question Answer Date of Assessment Author 1. Wish to be (Past 1 Month) No 025 5:00 PM Ju Hines RN 2. Non-Specific Active Suici jennifer Thoughts (Past 1 Month) No 11/16/2024 5:00 PM Ju Hines, STEFFANY 6. Suicidal Behavior (Lifetime) No 5:00 PM Ju iHnes, STEFFANY documented as of this encounter Plan of Treatment Not on file documented as of this encounter Visit Diagnoses Not on filedocumented in this encounter Care Teams Overlock Operator Relationship Specialty Start Date End Date Ramin Arnold MD [email or web address] PCP - General Family Medicine 05/19/20 documented as of this encounter Additional Source Comments The information contained in this document represents components of the legal health record. It is not the complete legal health record.[facility]
--- OUTSIDE RECORDS SUMMARY | 2025-08-23 20:40 | XMS_ITS | Encounter Summary ---
Author Organization [facility] Address [address] [place] [phone] Phone Care Team Providers Care Fish House Worker Name Role Phone Ramin Arnold MD Primary Care Provider Encounter Details Date Type Department Care Team (Late st Contact Info) Description 11/17/2024 Procedure Pass AMANDA [address] PERIOP DEPT [address] [place] [address] Social History Tobacco Use Types Packs/Day Years [...] on filedocumented in this encounter Care Teams Fish House Worker Relationship Specialty Start Date End Date Ramin Arnold MD [email or web address] PCP - General Family Medicine 05/19/20 documented as of this encounter Additional Source Comments The information contained in this document represents components of the legal health record. It is not the complete legal health record.[facility]
--- OUTSIDE RECORDS SUMMARY | 2025-08-23 20:40 | XMS_ITS | Encounter Summary ---
Author Organization [facility] Address [address] [place] [address] Phone Care Team Providers Care Associate Professor Of Media Arts Name Role Phone Ramin Arnold MD Primary Care Provider [phone] Encounter Details Date Type Department Care Team (Late st Contact Info) Description 11/16/2024 Procedure Pass [facility], [address], [address] [place] [address] Social History Tobacco Use Types Packs/Day Years [...] 11/16/2024 5:00 PM Ju Hines RN * [place] Suicide Severity Rating Scale (Screener/Recent Self-Report) Question [...] filedocumented in this encounter Care Teams Associate Professor Of Media Arts Relationship Specialty Start Date End Date Ramin Arnold MD PCP - General Family Medicine 05/19/20 documented as of this encounter Additional Source Comments The information contained in this document represents components of the legal health record. It is not the complete legal health record.[facility]
--- OUTSIDE RECORDS SUMMARY | 2025-08-23 20:40 | XMS_ITS | Encounter Summary ---
Author Organization [facility] Address [address] [place] [address] Phone Care Team Providers Care Caul Dresser Name Role Phone Ramin Arnold MD Primary Care Provider [phone] Encounter Details Date Type Department Care Team (Late st Contact Info) Description 11/16/2024 Ophth Exam AMANDA Oph Trauma [address] [place] [address] [place] [address] Laurence Coelho MD [address] [place] [id number] [email or web address] Social History Tobacco Use Types Packs/Day [...] 11/16/2024 5:00 PM Ju Hines RN * [place] Suicide Severity Rating Scale (Screener/Recent Self-Report) Question [...] on filedocumented in this encounter Care Teams Caul Dresser Relationship Specialty Start Date End Date Ramin Arnold MD [email or web address] PCP - General Family Medicine 05/19/20 documented as of this encounter Additional Source Comments The information contained in this document represents components of the legal health record. It is not the complete legal health record.[facility]
--- OUTSIDE RECORDS SUMMARY | 2025-08-23 20:41 | XMS_ITS | Clinical Summary ---
Author Organization [facility] it Address [address] [place] [address] Care Team Providers Care Tubing Assembler Name Role Phone Unavailable Primary Care Provider [...]
--- OUTSIDE RECORDS SUMMARY | 2025-08-23 20:41 | XMS_ITS | Data Portability ---
Author Organization [facility], Main Office Address [address], [address] [place] [address] Care Team Providers Care Vibrator Operator Name Role Phone [facility] OTHER Assessment Encounter Date [...] Address Organization Details Recorded Time Alcohol dependence 23370806 Active 2019 Riri harman, [facility] 0 10:55:15 Alcohol dependence 68192679 Active 2019 Riri Espinal null, [facility] 0 10:55:21 Sinus bradycardia 82792293 Active 2019 Riri harman, [facility] 0 10:55:22 Asthma 964738051 Active 2019 Riri harman, [facility] 0 10:55:25 Harmful pattern of use of cocaine 23979115 Active 2022 JESSICADOROTA HALEY, MONUMENT MASON [address], [place], [address], [facility] 3 17:51:39 Homeless 14154472 Active 2022 JESSICADOROTA HALEY, [facility] [address] [facility] [address], [address], [place], [address], [facility] [employer] 3 18:07:02 Asthenia 85402795 Active 2022 JESSICADOROTA HALEY, [facility] [address] [facility] [address], [address], [place], [address], [facility] [employer] 3 18:07:05 Bradycardia 82104339 Active 2022 JESSICA HALEY, [facility] [address] [facility], [address], [place], [address], [facility] [employer] 3 18:07:11 Laboratory test result abnormal 809418988 Active 2022 JESSICADOROTA HALEY, [facility] [address] [facility], [address], [place], [address], [facility] [employer] 3 18:07:15 Problem Notes None recorded. Medical Equipment None Reported. Allergies Allergen ID Allergen Name Allergen Category Reaction Reaction Severity Criticality Documentation Date Start Date Code Code System Note Provider Name and Address Organization Details Recorded Time 53333 shellfish derived food,medi cation Not available Not available Not available 05/19/2020 Riri harman, [facility] [employer] 0 08:43:01 Medications Not known to be on any medication Vitals Date Recorded Heart rate Respiratory rate Body temperature Oxygen saturation Oxygen saturation in Arterial blood by Pulse oximetry Systolic And Diastolic Provider Name and Address Organization Details Last Updated DateTime 3 78 /min 18 /min 97.4 [degF] 99 % 99 % 115/67 mm[Hg] Dayana Sarmiento -Kierkla [address], [address], [place], [address], [facility] [employer] 3 10:21:31 Social History Question Answer Notes LastModified by Organizat ion Details LastModified Time Tobacco Smoking Status Current Every Day Smoker 2 a day MIKE REYNOLDS [address] [facility] [address], [address], [place], [address], [facility] 07/19/2023 17:16:49 Do You Have An [...] Do You Have A Medical Power Of Bender Machine? No Information not available 07/19/2023 What Was [...] anxious, or unable to sleep at night)? [id number] Information not available 07/19/2023 Family History Relationship [...] 25mcg/0.25 mL dose 2 completed Nicole harman [facility] 10/17/2023 11:43:55 Tdap 2 completed Nicole harman [facility] 01/22/2024 14:21:00 Td (adult), 5 Lf tetanus toxoid, preservative free, adsorbed 7 completed Nicole harman [facility] 01/22/2024 14:21:20 Td (adult), 5 Lf tetanus toxoid, preservative free, adsorbed 8 completed Nicole harman [facility] 01/22/2024 14:21:35 pneumococcal polysaccharide PPV23 8 completed Nicole harman [facility] 01/22/2024 14:21:54 pneumococcal polysaccharide PPV23 6 completed Nicole harman [facility] 01/22/2024 14:22:04 Influenza, adjuvanted, quadrivalent, PF 3 completed Nicole harman [place] [facility] 01/22/2024 14:23:02 Past Encounters Encounter ID Performer Location Encounter Start Date Encounter Closed Date Diagnosis/Indication Diagnosis SNOMED-CT Code Diagnosis ICD10 Code Diagnosis IMO Codes Diagnosis Note [id number] MIKE Chen [facility] on [address] [place] [address] 05/19/2020 08:42:26 05/29/2020 13:18:57 Alcohol dependence 79728388 F10.288 Hx of withdrawal seizuresFo lic acid 1 mg dailyThiam ine 100 mg dailyPT OT eval and treat Sinus bradycardia 737526 05 R00.1 Implanted hospital monitor in placeF/u with cardiology Monitor HR Asthma 044535659 J45.99 8 Monitor respirator y status Liver enzy mes level above reference range 454925267 R74.8 Secondary to heavy ETOH useRepeat and monitor [id number] Lois Multani MD [facility] on [address] [place] [address] 05/20/2020 07:06:00 05/29/2020 14:50:19 Alcohol dependence 71073900 F10.20 thiamine 100 mg dailyfolic acid 1 mg dailysocia l work fu to encourage ongoing support and treatment Asthenia 89298895 R53.1 PT/OTwill monitor Liver enzy mes level above reference range 114425267 R74.8 will monitor Sinus bradycardia 997340 05 R00.1 resolvedwi ll monitor [id number] MIKE Chen [facility] on [address] [place] [address] 05/26/2020 09:30:59 05/29/2020 13:59:21 Alcohol dependence 53232935 F10.288 Hx of withdrawal seizuresFo lic acid 1 mg dailyThiam ine 100 mg dailyNo sxs of withdrawal noted Sinus bradycardia 386530 05 R00.1 Implanted hospital monitor in placeF/u with cardiology Monitor HR-ranges 58-88 Asthma 320377274 J45.99 8 Monitor respirator y statusOn no medication s [id number] MIKE Chen [facility] on [address] [place] [address] 06/12/2020 08:31:05 06/16/2020 10:01:54 Alcohol dependence 79308461 F10.288 Hx of withdrawal seizuresFo lic acid 1 mg dailyThiam ine 100 mg dailyNo signs of withdrawal currently Sinus bradycardia 111969 05 R00.1 Implanted hospital monitor in placeF/u with cardiology Monitor HR Asthma 693006005 J45.99 8 Monitor respirator y status Liver enzy mes level above reference range 282461703 R74.8 Secondary to heavy ETOH useRepeat LFTs 06/15 [id number] Riri Espinal [facility] on [address] [place] [address] 06/16/2020 11:47:30 06/18/2020 11:34:00 Alcohol dependence 78533170 F10.288 Hx of withdrawal seizuresFo lic acid 1 mg dailyThiam ine 100 mg dailyNo signs of withdrawal Encouraged to remain sober Sinus bradycardia 028551 05 R00.1 Implanted hospital monitor in placeRemai ns asymptomat ic F/u with cardiology Asthma 159110688 J45.99 8 No respirator y issues currentlyF /u with PCP Liver enzy mes level above reference range 193579069 R74.8 Secondary to heavy ETOH useNow resolved [id number] JESSICA HALEY [facility] on [address] [place] [address] 07/19/2023 15:26:02 07/27/2023 10:51:11 Laboratory test result abnormal 939699765 R89.9 In acute care rhabdo, hypokalemi a, transamini tis, hypomagnes emia , thrombocyt openia, normocytic , metabolic acidosis , normocytic anemia likely related to etoh abuse,,tx with IVF and supplement al replacemen tmonitor labs Alcohol dependence 92670 003 F10.288 hx seizures with withdrawal witnessed clonic tonic seizurestr eated with ativan and phenobarbi talencoura ged abstinence SUDs referralmo nitor for seizure activityco ntinue thiamine 100 mg qdfolate [address] 666 mg tid Bradycardia 21810577 R00 .1 Hx of syncope with implantabl e loop recorderSB in acute care with pausescard iology and EPS consulted- ILR interrogat ed, showed no correlatio n of syncope and pauses, no need for PPM. ILR removed.re commending PSG outpatient to r/o R[facility]- referral paced in [facility] Harmful pa ttern of use of cocaine 65528399 F14.10 refer to SUDsencour aged abstinence provide supportive services /refer to [facility] Homeless 90952337 Z59.00 social services director for support and services Asthenia 28587571 R53.1 impaired gait/weakn essPT/OT evalMorse 10 Asthma 680509129 J45.99 8 hxnot currently on medication smonitor for resp/clini aldair changes [id number] Lois Multani MD [facility] on [address] [place] [address] 07/21/2023 05:52:30 07/27/2023 11:40:25 Asthenia 70954833 R53.1 PT/OTwill monitor Alcohol dependence 86506 003 F10.288 thiamine 100 mg dailyfolic acid 1 mg dailyacamp rosate 666 mg tldsocial work fu to encourage ongoing support and treatment Bradycardia 53382955 R00 .1 not associated with syncopewil l monitor History of seizure due to alcohol withdrawal 5463269809 01187 Z86.69 completed withdrawal protocolwi ll monitor [id number] MIKE REYNOLDS [facility] on [address] [place] [address] 07/24/2023 09:10:19 07/31/2023 15:03:51 Alcohol dependence 00799701 F10.288 there has been no seizure activity reported. hx seizures with withdrawal witnessed clonic tonic seizurestr eated with ativan and phenobarbi talencoura ged abstinence SUDs referralmo nitor for seizure activityco ntinue thiamine 100 mg qdfolate [address] 666 mg tid Laboratory test result abnormal 952777852 R89.9 In acute care rhabdo, hypokalemi a, transamini tis, hypomagnes emia , thrombocyt openia, normocytic , metabolic acidosis , normocytic anemia likely related to etoh abuse,,tx with IVF and supplement al replacemen tmonitor labs Bradycardia 95563036 R00 .1 denies any cardiac sx today. apical rate 70 Hx of syncope with implantabl e loop recorderSB in acute care with pausescard iology and EPS consulted- ILR interrogat ed, showed no correlatio n of syncope and pauses, no need for PPM. ILR removed.re commending PSG outpatient to r/o R[facility]- referral paced in [facility] Harmful pa ttern of use of cocaine 16602811 F14.10 refer to SUDsencour aged abstinence provide supportive services /refer to Homeless 54994025 Z59.00 social services director for support and services Asthenia 83394658 R53.1 plan for OTimpaired gait/weakn ess Pineda 10 Asthma 281329906 J45.99 8 hxnot currently on medication smonitor for resp/clini aldair changes [id number] MIKE REYNOLDS [facility] [address] [place] [address] 07/26/2023 10:31:42 07/31/2023 15:13:33 Alcohol dependence 07305935 F10.288 there has been no seizure activity reported. hx seizures with withdrawal witnessed clonic tonic seizurestr eated with ativan and phenobarbi talencoura ged abstinence SUDs referralmo nitor for seizure activityco ntinue thiamine 100 mg qdfolate [address] 666 mg tid Bradycardia 21002373 R00 .1 HR 69Hx of syncope with implantabl e loop recorderSB in acute care with pausescard iology and EPS consulted- ILR interrogat ed, showed no correlatio n of syncope and pauses, no need for PPM. ILR removed.re commending PSG outpatient to r/o RAND- referral paced in [facility] Harmful pa ttern of use of cocaine 51628277 F14.10 refer to SUDsencour aged abstinence provide supportive services /refer to [facility] 30230025 Z59.00 social services director for support and services Asthenia 88166021 R53.1 plan for OTimpaired gait/weakn ess10/11: he is ambulating with steady gait independen tly. Asthma 730070976 J45.99 8 hxnot currently on medication smonitor for resp/clini aldair changes [id number] MIKE REYNOLDS [facility] on [address] [place] [address] 08/01/2023 09:31:41 08/08/2023 09:26:07 Alcohol dependence 76838086 F10.288 there has been no seizure activity reported. hx seizures with withdrawal witnessed clonic tonic seizurestr eated with ativan and phenobarbi talencoura ged abstinence SUDs referralmo nitor for seizure activityco ntinue thiamine 100 mg qdfolate [address] 666 mg tid Bradycardia 60016693 R00 .1 HR 69Hx of syncope with implantabl e loop recorderSB in acute care with pausescard iology and EPS consulted- ILR interrogat ed, showed no correlatio n of syncope and pauses, no need for PPM. ILR removed.re commending PSG outpatient to r/o RAND- referral paced in [facility] Harmful pa ttern of use of cocaine 36047320 F14.10 refer to SUDsencour aged abstinence provide supportive services /refer to Homeless 84372282 Z59.00 social services director for support and services Asthenia 71319211 R53.1 plan for OTimpaired gait/weakn ess07/26: he is ambulating with steady gait independen tly. Asthma 768726284 J45.99 8 hxnot currently on medication smonitor for resp/clini aldair changes [id number] MIKE REYNOLDS [facility] on [address] [place] [address] 08/04/2023 08:03:49 08/08/2023 11:32:51 Alcohol dependence 44029233 F10.288 08/04: there has been no seizure activity reported. hx seizures with withdrawal witnessed clonic tonic seizurestr eated with ativan and phenobarbi talencoura ged abstinence SUDs referralmo nitor for seizure activityco ntinue thiamine 100 mg qdfolate [address] 666 mg tid Bradycardia 69676228 R00 .1 HR 69Hx of syncope with implantabl e loop recorderSB in acute care with pausescard iology and EPS consulted- ILR interrogat ed, showed no correlatio n of syncope and pauses, no need for PPM. ILR removed.re commending PSG outpatient to r/o RAND- referral paced in [facility] Harmful pa ttern of use of cocaine 37220943 F14.10 refer to SUDsencour aged abstinence provide supportive services /refer to Homeless 04027118 Z59.00 social services director for support and services Asthenia 61396193 R53.1 plan for OTimpaired gait/weakn ess07/26: he is ambulating with steady gait independen tly.08/04: meeting goals with therapy, independen t with care. Asthma 716556975 J45.99 8 hxnot currently on medication smonitor for resp/clini aldair changes [id number] MIKE REYNOLDS [facility] on [address] [place] [address] 08/10/2023 08:14:16 08/17/2023 15:56:48 Alcohol dependence 74321885 F10.288 hx seizures with withdrawal witnessed clonic tonic seizurestr eated with ativan and phenobarbi talencoura ged abstinence SUDs referralmo nitor for seizure activityco ntinue thiamine 100 mg qdfolate [address] 666 mg tid Bradycardia 33275093 R00 .1 Hx of syncope with implantabl e loop recorderSB in acute care with pausescard iology and EPS consulted- ILR interrogat ed, showed no correlatio n of syncope and pauses, no need for PPM. ILR removed.re commending PSG outpatient to r/o R[facility]- referral paced in [facility] Harmful pa ttern of use of cocaine 17022123 F14.10 refer to SUDsencour aged abstinence provide supportive services /refer to [facility] Homeless 67729881 Z59.00 social services director for support and services Asthenia 64742440 R53.1 08/09/2023 : therapy goals met.He is independen t on on unit. Asthma 564107542 J45.99 8 hxnot currently on medication smonitor for resp/clini aldair changes [id number] MIKE REYNOLDS [facility] on [address] [place] [address] 08/16/2023 07:01:21 08/18/2023 08:46:19 Alcohol dependence 58232981 F10.288 08/16: There has been no reported seizurehx seizures with withdrawal witnessed clonic tonic seizurestr eated with ativan and phenobarbi talencoura ged abstinence SUDs referralmo nitor for seizure activityco ntinue thiamine 100 mg qdfolate [address] 666 mg tid Asthma 021125437 J45.99 8 08/16: Denies any shortness of breath or resp. issuesnot currently on medication smonitor for resp/clini aldair changes [id number] Dayana Sarmiento Lo [facility] on [address] [place] [address] 08/25/2023 10:10:49 08/28/2023 11:33:00 Alcohol dependence 26867371 F10.288 08/16: There has been no reported seizurehx seizures with withdrawal witnessed clonic tonic seizurestr eated with ativan and phenobarbi talencoura ged abstinence SUDs referralmo nitor for seizure activityco ntinue thiamine 100 mg qdfolate [address] 666 mg tid Asthma 322967288 J45.99 8 08/16: Denies any shortness of breath or resp. issuesnot currently on medication smonitor for resp/clini aldair changes Harmful pa ttern of use of cocaine 71143152 F14.10 follow up with outpatient carehas not used during SNF stay Homeless 83111175 Z59.00 [facility] Sinus bradycardia 949108 05 R00.1 resolved, HR 78 today Laboratory test result abnormal 515663471 R89.9 resolved, follow up with outpt PCP next week Health Concerns Section Related Observation LastModified by Organization Detai ls LastModified Time None Recorded Concern Status LastModified by Organization Details LastModified Time None Recorded Advance Directives Directive Y: Payers Insurance Date Sequence Insurance Name Policy Number Policy Hobbs Covered Member ID Hobbs Member ID Guarantor Name 03/21/2024 1 [place] [facility] [id number] [facility] Notes Date Note Type Note Provider Name and Address Organization Details Recorded Time 08/01/2023 text/html ROS as noted in the HPI Seen today for acute rounding visit. Past medical history remarkable for alcohol abuse dependency with withdrawal seizures, syncope with implantable loop recorder in place. Presented to [facility] on 07/08/23 from outside source with both unwitnessed and witnessed seizure; on arrival to ED he had another witnessed tonic clonic seizure associated with post ictal. He was treated with IV ativan and started on phenobarbital protocol. He was admitted for ETOH withdrawal, Rhabdo and and found to have sinus pauses. Evaluated by therapy for weakness, admitted to [facility] for continued care and rehab. On exam today he is stable, there is no acute nursing concerns. progressing toward therapy goals. MIKE REYNOLDS [address] [facility] [address], [address], [place], [address], [facility] 08/01/2023 14:12:08 08/04/2023 text/html ROS as noted in the HPI Seen today for acute rounding visit. Past medical history remarkable for alcohol abuse dependency with withdrawal seizures, syncope with implantable loop recorder in place. Presented to [facility] on 07/08/23 from outside source with both unwitnessed and witnessed seizure; on arrival to ED he had another witnessed tonic clonic seizure associated with post ictal. He was treated with IV ativan and started on phenobarbital protocol. He was admitted for ETOH withdrawal, Rhabdo and and found to have sinus pauses. Evaluated by therapy for weakness, admitted to [facility] for continued care and rehab. He continue to be medically stable, he has been working with therapy, as of note he has progressed to independent for adl no adaptive device required. On exam he noted ambulating on unit with steady gait, he tells me that he is ok, there is no acute nursing concerns. MIKE REYNOLDS [address] [facility], [address], [place], [address], [facility] 08/04/2023 13:02:43 08/10/2023 text/html ROS as noted in the HPI Duarte is seen today for acute rounding visit. Past medical history of ETOH abuse with withdrawal seizures, cocaine abuse, asthma.He has been stable, he offers no complaints. There is no acute nursing concerns. MIKE REYNOLDS [address] [facility] [address], [address], [place], [address], [facility] 08/10/2023 10:56:55 08/16/2023 text/html Duarte is seen today for routine rounding [employer] 30 day visit. Past medical history of ETOH abuse with withdrawal seizures, cocaine abuse, asthma. Duarte is alert and verbal in NAD. He has been stable seen his last rounding visit, there is no complaints, there is no acute nursing concerns. MIKE REYNOLDS [address] [facility] [address], [address], [place], [address], [facility] 08/16/2023 11:03:33 08/25/2023 text/html ROS as noted in the HPI Duarte is seen today for discharge. Past medical history of ETOH abuse with withdrawal seizures, cocaine abuse, asthma. Duarte is alert and verbal in NAD. He has been stable seen his last rounding visit, there is no complaints, there is no acute nursing concerns. Dayana valle [address], [address], [place], [address], [facility] 08/25/2023 10:26:05
--- OUTSIDE RECORDS SUMMARY | 2025-08-23 20:41 | XMS_ITS | Encounter Summary ---
Author Organization [facility] Address [address] [place] [address] Phone Care Team Providers Care Glove Maker Name Role Phone Ramin Arnold MD Primary Care Provider [phone] Encounter Details Date Type Department Care Team (Late st Contact Info) Description 11/19/2024 Ophth Exam AMANDA O[facility] [place] [address] [place] [address] Laurence Coelho MD [address] [place] [address] [email or web address] Social History Tobacco Use Types Packs/Day [...] on filedocumented in this encounter Care Teams Glove Maker Relationship Specialty Start Date End Date Ramin Arnold MD [email or web address] PCP - General Family Medicine 05/19/20 documented as of this encounter Additional Source Comments The information contained in this document represents components of the legal health record. It is not the complete legal health record.[facility]
--- OUTSIDE RECORDS SUMMARY | 2025-08-23 20:41 | XMS_ITS | Clinical Summary ---
Author Organization [facility] Address [address] [place] [address] Phone Care Team Providers Care Winder Fixer Name Role Phone Ramin Arnold MD Primary Care Provider [phone] Allergies Active Allergy Reactions Criticality Noted Date [...] Advance Directives For more information, please contact: [phone] (9AM - 5PM [facility], Monday-Monday) * Full Code (Latest Code Status on File) Date Activated Date Inactivated Comments 11/16/2024 5:47 PM Question Answer Comments Code Status Confirmed With: Patient * Full Code Date Activated Date Inactivated Comments 11/16/2024 5:45 PM 11/16/2024 5:47 PM Question Answer Comments Code Status Confirmed With: Other (specify below ) Care Teams Winder Fixer Relationship Specialty Start Date End Date Ramin Arnold MD [email or web address] PCP - General Family Medicine 05/19/20 Additional Source Comments The information contained in this document represents components of the legal health record. It is not the complete legal health record.[facility]
--- OUTSIDE RECORDS SUMMARY | 2025-08-23 20:41 | XMS_ITS | Encounter Summary ---
Author Organization [facility] Address [address] [place] [address] Phone Care Team Providers Care Windows Phone Developer Name Role Phone Ramin Arnold MD Primary Care Provider [phone] Encounter Details Date Type Department Care Team (Late st Contact Info) Description 05/21/2020 Transcribe Orders [facility] Specimen Processing [address] [place] [address] Ramin Arnold MD [address] [place] [address] [address], [address] [place] [address] [email or web address] COVID-19 ruled out (Primary Dx) Social History [...] 5:36 PM EDT) Specimen Source NASOPHARYNGEAL SWAB (HOT WORT SETTLER) [facility] COVID Testing Status Sent to [facility] Other 05/21/2020 5:36 PM EDT 05/21/2020 5:47 PM EDT us Ramin Arnold MD LAB GENERAL ORDERABLES Final Res ult [facility] [address] [place] [address] documented in this encounter Visit Diagnoses Diagnosis COVID-19 ruled out- Primary documented in this encounter Additional Health Concerns Infection Onset Date Last Indicated Resolved Time CoV-Exposed Comment:Recent close contact 05/21/2020 05/21/2020 06/04/2020 1:23 AM EDT CoV-Exposed Comment:Recent close contact 06/04/2020 06/04/2020 06/18/2020 1:24 AM EDT CoV-Exposed Comment:Recent close contact 08/26/2020 08/26/2020 09/09/2020 1:24 AM EST documented as of this encounter Care Teams Windows Phone Developer Relationship Specialty Start Date End Date Ramin Arnold MD [email or web address] PCP - General Family Medicine 05/19/20 documented as of this encounter Additional Source Comments The information contained in this document represents components of the legal health record. It is not the complete legal health record.[facility]
[2025-08-23 21:19] LABS: NRBC Pct Auto 1.0 /100WBC (0.0-0.2)
[2025-08-23 21:20] LABS: Platelet Count 81 X10*3/uL (160-400); White Blood Count 2.0 X10*3/uL (4.8-10.8)
[2025-08-24 06:06] VITALS: BP 121/69; PULSE 71; RESP 16; O2SAT 97
[2025-08-24 06:16] VITALS: BP 121/69; PULSE 71; RESP 16; TEMP -17.7; TEMP 0; O2SAT 97
== END 2025-08-24 06:17 | disposition home or self-care (01) ==
PROVIDERS: Emergency Medicine Emergency Medical Services; Emergency Provider Emergency Medicine
DX: S09.90XA Unspecified injury of head, initial encounter (principal); F10.129 Alcohol abuse with intoxication, unspecified; Y90.8 Blood alcohol level of 240 mg/100 ml or more; W18.30XA Fall on same level, unspecified, initial encounter; Y93.9 Activity, unspecified; Y92.9 Unspecified place or not applicable; Y99.9 Unspecified external cause status; Z59.02 Unsheltered homelessness
CPT/HCPCS: 36415; 70450; 72125; 80053; 80307; 83735; 85025; 99284

== ENCOUNTER → 2025-08-23 20:14 | Outpatient (BNV) | payer MEDICAID, SELFPAY | PROVIDERS: Emergency Provider Emergency Medicine; Visit Provider Radiology Diagnostic Radiology | DX: M54.2 Cervicalgia (principal); Z04.3 Encounter for examination and observation following other accident; S09.90XA Unspecified injury of head, initial encounter | CPT/HCPCS: 70450; 72125 ==

== ENCOUNTER 2025-08-28 00:32 | Emergency (ER) | payer MEDICAID, SELFPAY ==
[2025-08-28] VITALS (7 sets, daily range): BP systolic 95–148; BP diastolic 63–85; PULSE 72–80; RESP 14–18; TEMP 36.2–36.6; O2SAT 92–99; BMI 25.8
--- NOTE | ~2025-08-28 | CT_ITS ---
CLINICAL HISTORY: trauma, intoxication CT head without contrast Comparison: CT/REG/SR - CT HEAD/BRAIN WO IV CON - 08/23/25 20:42 EST Findings: No intra-axial mass, midline shift, hydrocephalus, or acute hemorrhage. 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 Mild atrophy like change. There is no sinus or mastoid fluid. The orbits are unremarkable. There is no acute fracture. IMPRESSION: 1. No acute intracranial findings. This document has been electronically signed by: Itz Lucas MD on 08/28/2025 04:35:43
--- NOTE | ~2025-08-28 | CT_ITS ---
CLINICAL HISTORY: trauma, intoxication CT lumbar spine without contrast Comparison: None provided Findings: Vertebral alignment is within normal limits. No acute fractures or dislocations. No significant degenerative change. Hypodense liver. Cholelithiasis. Significant urinary bladder distention. IMPRESSION: 1. Unremarkable lumbar spine. No fracture. 2. Hepatic steatosis. 3. Cholelithiasis. 4. Distended urinary bladder. This document has been electronically signed by: Itz Lucas MD on 08/28/2025 04:35:16
--- NOTE | ~2025-08-28 | CT_ITS ---
CLINICAL HISTORY: trauma, intoxication CT cervical spine without contrast Comparison: CT/SR - CT CERVICAL SPINE WO IV CON - 08/23/25 20:42 EST Findings: Normal vertebral body alignment. No significant degenerative change. No acute fractures or dislocations. No acute findings on limited view of the intracranial contents. Soft tissues of the neck are normal. Lung apices are clear. IMPRESSION: No acute findings. This document has been electronically signed by: Itz Lucas MD on 08/28/2025 04:34:30
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
--- NOTE | 2025-08-28 00:50 | PC.NURSE ---
Assumed care of pt, presents to the ED for falls, pt was found outside behind a liquor store on the ground, pt states that he fell and passed out, pt endorses that he drank beer and vodka, also takes heroine, cocaine, and cannabis, currently denying HI/SI, Pt is alert and awake, pt was changed into green gown and belongings placed in the [place]sin [place] closet
--- OUTSIDE RECORDS SUMMARY | 2025-08-28 01:12 | XMS_ITS | Encounter Summary ---
Author Organization [facility] Address [address] [place] [address] Phone Care Team Providers Care Adjunct Communications Faculty Member Name Role Phone Ramin Arnold MD Primary Care Provider [phone] Encounter Details Date Type Department Care Team (Late st Contact Info) Description 11/16/2024 Ophth Exam AMANDA Oph Trauma [facility] [place] [address] [place] [address] Laurence Coelho MD [address] [place] [id number] [email or web address] Social History Tobacco Use Types [...] 11/16/2024 5:00 PM Ju Hines RN * [place] Suicide Severity Rating Scale (Screener/Recent Self-Report) Question [...] on filedocumented in this encounter Care Teams Adjunct Communications Faculty Member Relationship Specialty Start Date End Date Ramin Arnold MD [email or web address] PCP - General Family Medicine 05/19/20 documented as of this encounter Additional Source Comments The information contained in this document represents components of the legal health record. It is not the complete legal health record.[facility]
--- OUTSIDE RECORDS SUMMARY | 2025-08-28 01:12 | XMS_ITS | Encounter Summary ---
Author Organization [facility] Address [address] [place] [address] Phone Care Team Providers Care In Process Inspector Name Role Phone Ramin Arnold MD Primary Care Provider [phone] Encounter Details Date Type Department Care Team ([facility] st Contact Info) Description 11/16/2024 Ophth Exam AMANDA Consult from [address] [address] Lit Price MD [address] [place] [address] [email or web address] Social History Tobacco Use Types Packs/Day [...] 11/16/2024 5:00 PM Ju Hines RN * [place] Suicide Severity Rating Scale (Screener/Recent Self-Report) Question [...] on filedocumented in this encounter Care Teams In Process Inspector Relationship Specialty Start Date End Date Ramin Arnold MD [email or web address] PCP - General Family Medicine 05/19/20 documented as of this encounter Additional Source Comments The information contained in this document represents components of the legal health record. It is not the complete legal health record.[facility]
--- OUTSIDE RECORDS SUMMARY | 2025-08-28 01:13 | XMS_ITS | Data Portability ---
Author Organization [facility], Main Office Address [address] [place] [address] Care Team Providers Care Clutch Assembler Name Role Phone [facility] OTHER Assessment Encounter Date [...] Address Organization Details Recorded Time Alcohol dependence 88674623 Active 2019 Riri harman, [facility] 0 10:55:15 Alcohol dependence 07212458 Active 2019 Riri Espinal null, [facility] 0 10:55:21 Sinus bradycardia 82852404 Active 2019 Riri harman, [facility] 0 10:55:22 Asthma 272114759 Active 2019 Riri harman, [facility] [employer] [facility] 0 10:55:25 Harmful pattern of use of cocaine 29328877 Active 2022 JESSICADOROTA HALEY, [employer] [address], [place], [address], [facility] [employer] [facility] 3 17:51:39 Homeless 06860437 Active 2022 JESSICADOROTA HALEY, [facility] [address], [address], [place], [address], [facility] [employer] 3 18:07:02 Asthenia 54767280 Active 2022 JESSICADOROTA HALEY, [facility] [address], [address], [place], [address], [facility] [employer] 3 18:07:05 Bradycardia 09434105 Active 2022 JESSICA HALEY, [facility] [address], [address], [place], [address], [facility] [employer] 3 18:07:11 Laboratory test result abnormal 616322803 Active 2022 JESSICADOROTA HALEY, [facility] [address], [address], [place], [address], [facility] [employer] 3 18:07:15 Problem Notes None recorded. Medical Equipment None Reported. Allergies Allergen ID Allergen Name Allergen Category Reaction Reaction Severity Criticality Documentation Date Start Date Code Code System Note Provider Name and Address Organization Details Recorded Time 35886 shellfish derived food,medi cation Not available Not available Not available 05/19/2020 Riri harman, [facility] [employer] 0 08:43:01 Medications Not known to be on any medication Vitals Date Recorded Heart rate Respiratory rate Body temperature Oxygen saturation Oxygen saturation in Arterial blood by Pulse oximetry Systolic And Diastolic Provider Name and Address Organization Details Last Updated DateTime 3 78 /min 18 /min 97.4 [degF] 99 % 99 % 115/67 mm[Hg] Dayana Sarmiento -Kierkla [address], [address], [place], [address], [facility] [employer] 3 10:21:31 Social History Question Answer Notes LastModified by Organizat ion Details LastModified Time Tobacco Smoking Status Current Every Day Smoker 2 a day MIKE REYNOLDS [address], [address], [place], [address], [facility] 07/19/2023 17:16:49 Do You Have An [...] Do You Have A Medical Power Of Automotive Machinist? No Information not available 07/19/2023 What Was [...] anxious, or unable to sleep at night)? [id number] Information not available 07/19/2023 Family History Relationship [...] 25mcg/0.25 mL dose 2 completed Nicole harman [facility] 10/17/2023 11:43:55 Tdap 2 completed Nicole harman [facility] 01/22/2024 14:21:00 Td (adult), 5 Lf tetanus toxoid, preservative free, adsorbed 7 completed Nicole harman [facility] 01/22/2024 14:21:20 Td (adult), 5 Lf tetanus toxoid, preservative free, adsorbed 8 completed Nicole harman [facility] 01/22/2024 14:21:35 pneumococcal polysaccharide PPV23 8 completed Nicole harman [facility] 01/22/2024 14:21:54 pneumococcal polysaccharide PPV23 6 completed Nicole harman [facility] 01/22/2024 14:22:04 Influenza, adjuvanted, quadrivalent, PF 3 completed Nicole harman ID - [facility] 01/22/2024 14:23:02 Past Encounters Encounter ID Performer Location Encounter Start Date Encounter Closed Date Diagnosis/Indication Diagnosis SNOMED-CT Code Diagnosis ICD10 Code Diagnosis IMO Codes Diagnosis Note [id number] MIKE Chen [facility] on [address] [place] [address] 05/19/2020 08:42:26 05/29/2020 13:18:57 Alcohol dependence 74612027 F10.288 Hx of withdrawal seizuresFo lic acid 1 mg dailyThiam ine 100 mg dailyPT OT eval and treat Sinus bradycardia 297952 05 R00.1 Implanted secured entrance monitor in placeF/u with cardiology Monitor HR Asthma 179186546 J45.99 8 Monitor respirator y status Liver enzy mes level above reference range 324307216 R74.8 Secondary to heavy ETOH useRepeat and monitor [id number] Lois Multani MD [facility] on [address] [place] [address] 05/20/2020 07:06:00 05/29/2020 14:50:19 Alcohol dependence 11281178 F10.20 thiamine 100 mg dailyfolic acid 1 mg dailysocia l work fu to encourage ongoing support and treatment Asthenia 48698344 R53.1 PT/OTwill monitor Liver enzy mes level above reference range 455591145 R74.8 will monitor Sinus bradycardia 379875 05 R00.1 resolvedwi ll monitor [id number] MIKE Chen [facility] on [address] [place] [address] 05/26/2020 09:30:59 05/29/2020 13:59:21 Alcohol dependence 26843912 F10.288 Hx of withdrawal seizuresFo lic acid 1 mg dailyThiam ine 100 mg dailyNo sxs of withdrawal noted Sinus bradycardia 398717 05 R00.1 Implanted secured entrance monitor in placeF/u with cardiology Monitor HR-ranges 58-88 Asthma 409899336 J45.99 8 Monitor respirator y statusOn no medication s [id number] MIKE Chen [facility] on [address] [place] [address] 06/12/2020 08:31:05 06/16/2020 10:01:54 Alcohol dependence 14891485 F10.288 Hx of withdrawal seizuresFo lic acid 1 mg dailyThiam ine 100 mg dailyNo signs of withdrawal currently Sinus bradycardia 794156 05 R00.1 Implanted secured entrance monitor in placeF/u with cardiology Monitor HR Asthma 832278087 J45.99 8 Monitor respirator y status Liver enzy mes level above reference range 470977300 R74.8 Secondary to heavy ETOH useRepeat LFTs 06/15 [id number] Riri Espinal [facility] on [address] [place] [address] 06/16/2020 11:47:30 06/18/2020 11:34:00 Alcohol dependence 76511777 F10.288 Hx of withdrawal seizuresFo lic acid 1 mg dailyThiam ine 100 mg dailyNo signs of withdrawal Encouraged to remain sober Sinus bradycardia 259532 05 R00.1 Implanted secured entrance monitor in placeRemai ns asymptomat ic F/u with cardiology Asthma 632875449 J45.99 8 No respirator y issues currentlyF /u with PCP Liver enzy mes level above reference range 756122806 R74.8 Secondary to heavy ETOH useNow resolved [id number] JESSICA HALEY [facility] on [address] [place] [address] 07/19/2023 15:26:02 07/27/2023 10:51:11 Laboratory test result abnormal 336074879 R89.9 In acute care rhabdo, hypokalemi a, transamini tis, hypomagnes emia , thrombocyt openia, normocytic , metabolic acidosis , normocytic anemia likely related to etoh abuse,,tx with IVF and supplement al replacemen tmonitor labs Alcohol dependence 60558 003 F10.288 hx seizures with withdrawal witnessed clonic tonic seizurestr eated with ativan and phenobarbi talencoura ged abstinence SUDs referralmo nitor for seizure activityco ntinue thiamine 100 mg qdfolate [address] 666 mg tid Bradycardia 36685282 R00 .1 Hx of syncope with implantabl e loop recorderSB in acute care with pausescard iology and EPS consulted- ILR interrogat ed, showed no correlatio n of syncope and pauses, no need for PPM. ILR removed.re commending PSG outpatient to r/o R[facility]- referral paced in [facility] Harmful pa ttern of use of cocaine 84041838 F14.10 refer to SUDsencour aged abstinence provide supportive services /refer to [facility] 96274620 Z59.00 manager social media for support and services Asthenia 02355620 R53.1 impaired gait/weakn essPT/OT evalMorse 10 Asthma 912845519 J45.99 8 hxnot currently on medication smonitor for resp/clini aldair changes [id number] Lois Multani MD [facility] on [address] [place] [address] 07/21/2023 05:52:30 07/27/2023 11:40:25 Asthenia 16149979 R53.1 PT/OTwill monitor Alcohol dependence 62130 003 F10.288 thiamine 100 mg dailyfolic acid 1 mg dailyacamp rosate 666 mg tldsocial work fu to encourage ongoing support and treatment Bradycardia 31401745 R00 .1 not associated with syncopewil l monitor History of seizure due to alcohol withdrawal 2753571592 02358 Z86.69 completed withdrawal protocolwi ll monitor [id number] MIKE REYNOLDS [facility] on [address] [place] [address] 07/24/2023 09:10:19 07/31/2023 15:03:51 Alcohol dependence 45028922 F10.288 there has been no seizure activity reported. hx seizures with withdrawal witnessed clonic tonic seizurestr eated with ativan and phenobarbi talencoura ged abstinence SUDs referralmo nitor for seizure activityco ntinue thiamine 100 mg qdfolate [address] 666 mg tid Laboratory test result abnormal 721481123 R89.9 In acute care rhabdo, hypokalemi a, transamini tis, hypomagnes emia , thrombocyt openia, normocytic , metabolic acidosis , normocytic anemia likely related to etoh abuse,,tx with IVF and supplement al replacemen tmonitor labs Bradycardia 43974261 R00 .1 denies any cardiac sx today. apical rate 70 Hx of syncope with implantabl e loop recorderSB in acute care with pausescard iology and EPS consulted- ILR interrogat ed, showed no correlatio n of syncope and pauses, no need for PPM. ILR removed.re commending PSG outpatient to r/o RAND- referral paced in [facility] Harmful pa ttern of use of cocaine 63393842 F14.10 refer to SUDsencour aged abstinence provide supportive services /refer to Homeless 62701044 Z59.00 manager social media for support and services Asthenia 28998738 R53.1 plan for OTimpaired gait/weakn ess Pineda 10 Asthma 911424477 J45.99 8 hxnot currently on medication smonitor for resp/clini aldair changes [id number] MIKE REYNOLDS [facility] on [address] [place] [id number] 07/26/2023 10:31:42 07/31/2023 15:13:33 Alcohol dependence 60147944 F10.288 there has been no seizure activity reported. hx seizures with withdrawal witnessed clonic tonic seizurestr eated with ativan and phenobarbi talencoura ged abstinence SUDs referralmo nitor for seizure activityco ntinue thiamine 100 mg qdfolate [address] 666 mg tid Bradycardia 89166370 R00 .1 HR 69Hx of syncope with implantabl e loop recorderSB in acute care with pausescard iology and EPS consulted- ILR interrogat ed, showed no correlatio n of syncope and pauses, no need for PPM. ILR removed.re commending PSG outpatient to r/o RAND- referral paced in [facility] Harmful pa ttern of use of cocaine 66124512 F14.10 refer to SUDsencour aged abstinence provide supportive services /refer to [facility] 17804951 Z59.00 manager social media for support and services Asthenia 71858108 R53.1 plan for OTimpaired gait/weakn ess10/11: he is ambulating with steady gait independen tly. Asthma 608200888 J45.99 8 hxnot currently on medication smonitor for resp/clini aldair changes [id number] MIKE REYNOLDS [facility] on [address] [place] [id number] 08/01/2023 09:31:41 08/08/2023 09:26:07 Alcohol dependence 68615647 F10.288 there has been no seizure activity reported. hx seizures with withdrawal witnessed clonic tonic seizurestr eated with ativan and phenobarbi talencoura ged abstinence SUDs referralmo nitor for seizure activityco ntinue thiamine 100 mg qdfolate [address] 666 mg tid Bradycardia 64863419 R00 .1 HR 69Hx of syncope with implantabl e loop recorderSB in acute care with pausescard iology and EPS consulted- ILR interrogat ed, showed no correlatio n of syncope and pauses, no need for PPM. ILR removed.re commending PSG outpatient to r/o RAND- referral paced in [facility] Harmful pa ttern of use of cocaine 19671128 F14.10 refer to SUDsencour aged abstinence provide supportive services /refer to Homeless 85549622 Z59.00 manager social media for support and services Asthenia 88333891 R53.1 plan for OTimpaired gait/weakn ess07/26: he is ambulating with steady gait independen tly. Asthma 780054920 J45.99 8 hxnot currently on medication smonitor for resp/clini aldair changes [id number] MIKE REYNOLDS [facility] on [address] [place] [address] 08/04/2023 08:03:49 08/08/2023 11:32:51 Alcohol dependence 07091519 F10.288 08/04: there has been no seizure activity reported. hx seizures with withdrawal witnessed clonic tonic seizurestr eated with ativan and phenobarbi talencoura ged abstinence SUDs referralmo nitor for seizure activityco ntinue thiamine 100 mg qdfolate [address] 666 mg tid Bradycardia 59593508 R00 .1 HR 69Hx of syncope with implantabl e loop recorderSB in acute care with pausescard iology and EPS consulted- ILR interrogat ed, showed no correlatio n of syncope and pauses, no need for PPM. ILR removed.re commending PSG outpatient to r/o RAND- referral paced in [facility] Harmful pa ttern of use of cocaine 88589577 F14.10 refer to SUDsencour aged abstinence provide supportive services /refer to Homeless 63661748 Z59.00 manager social media for support and services Asthenia 72073740 R53.1 plan for OTimpaired gait/weakn ess07/26: he is ambulating with steady gait independen tly.08/04: meeting goals with therapy, independen t with care. Asthma 962572937 J45.99 8 hxnot currently on medication smonitor for resp/clini aldair changes [id number] MIKE REYNOLDS [facility] on [address] [place] [id number] 08/10/2023 08:14:16 08/17/2023 15:56:48 Alcohol dependence 77684329 F10.288 hx seizures with withdrawal witnessed clonic tonic seizurestr eated with ativan and phenobarbi talencoura ged abstinence SUDs referralmo nitor for seizure activityco ntinue thiamine 100 mg qdfolate [address] 666 mg tid Bradycardia 04625495 R00 .1 Hx of syncope with implantabl e loop recorderSB in acute care with pausescard iology and EPS consulted- ILR interrogat ed, showed no correlatio n of syncope and pauses, no need for PPM. ILR removed.re commending PSG outpatient to r/o R[facility]- referral paced in [facility] Harmful pa ttern of use of cocaine 56329565 F14.10 refer to SUDsencour aged abstinence provide supportive services /refer to [facility]eless 88838298 Z59.00 manager social media for support and services Asthenia 68452257 R53.1 08/09/2023 : therapy goals met.He is independen t on on unit. Asthma 796213764 J45.99 8 hxnot currently on medication smonitor for resp/clini aldair changes [id number] MIKE REYNOLDS [facility] on [address] [place] [address] 08/16/2023 07:01:21 08/18/2023 08:46:19 Alcohol dependence 95863662 F10.288 08/16: There has been no reported seizurehx seizures with withdrawal witnessed clonic tonic seizurestr eated with ativan and phenobarbi talencoura ged abstinence SUDs referralmo nitor for seizure activityco ntinue thiamine 100 mg qdfolate [address] 666 mg tid Asthma 262314006 J45.99 8 08/16: Denies any shortness of breath or resp. issuesnot currently on medication smonitor for resp/clini aldair changes [id number] Dayana Sarmiento Lo [facility] on [address] [place] [address] 08/25/2023 10:10:49 08/28/2023 11:33:00 Alcohol dependence 59483334 F10.288 08/16: There has been no reported seizurehx seizures with withdrawal witnessed clonic tonic seizurestr eated with ativan and phenobarbi talencoura ged abstinence SUDs referralmo nitor for seizure activityco ntinue thiamine 100 mg qdfolate [address] 666 mg tid Asthma 662696314 J45.99 8 08/16: Denies any shortness of breath or resp. issuesnot currently on medication smonitor for resp/clini aldair changes Harmful pa ttern of use of cocaine 69115926 F14.10 follow up with outpatient carehas not used during SNF stay Homeless 31864655 Z59.00 [facility] Sinus bradycardia 597528 05 R00.1 resolved, HR 78 today Laboratory test result abnormal 789219954 R89.9 resolved, follow up with outpt PCP next week Health Concerns Section Related Observation LastModified by Organization Detai ls LastModified Time None Recorded Concern Status LastModified by Organization Details LastModified Time None Recorded Advance Directives Directive Y: Payers Insurance Date Sequence Insurance Name Policy Number Policy Hobbs Covered Member ID Hobbs Member ID Guarantor Name 03/21/2024 1 MEDICAID-ID: [facility] [id number] [facility] Notes Date Note Type Note Provider Name and Address Organization Details Recorded Time 08/01/2023 text/html ROS as noted in the HPI Seen today for acute rounding visit. Past medical history remarkable for alcohol abuse dependency with withdrawal seizures, syncope with implantable loop recorder in place. Presented to [facility] on 07/08/23 from outside source with both unwitnessed and witnessed seizure; on arrival to ED he had another witnessed tonic clonic seizure associated with post ictal. He was treated with IV ativan and started on phenobarbital protocol. He was admitted for ETOH withdrawal, Rhabdo and and found to have sinus pauses. Evaluated by therapy for weakness, admitted to [facility] for continued care and rehab. On exam today he is stable, there is no acute nursing concerns. progressing toward therapy goals. MIKE REYNOLDS [address], [address], [place], [address], [facility] [employer] [facility] 08/01/2023 14:12:08 08/04/2023 text/html ROS as noted in the HPI Seen today for acute rounding visit. Past medical history remarkable for alcohol abuse dependency with withdrawal seizures, syncope with implantable loop recorder in place. Presented to [facility] on 07/08/23 from outside source with both unwitnessed and witnessed seizure; on arrival to ED he had another witnessed tonic clonic seizure associated with post ictal. He was treated with IV ativan and started on phenobarbital protocol. He was admitted for ETOH withdrawal, Rhabdo and and found to have sinus pauses. Evaluated by therapy for weakness, admitted to [facility] for continued care and rehab. He continue to be medically stable, he has been working with therapy, as of note he has progressed to independent for adl no adaptive device required. On exam he noted ambulating on unit with steady gait, he tells me that he is ok, there is no acute nursing concerns. MIKE REYNOLDS [address], [address], [place], [address], [facility] [employer] [facility] 08/04/2023 13:02:43 08/10/2023 text/html ROS as noted in the HPI Duarte is seen today for acute rounding visit. Past medical history of ETOH abuse with withdrawal seizures, cocaine abuse, asthma.He has been stable, he offers no complaints. There is no acute nursing concerns. MIKE REYNOLDS [address], [address], [place], [address], [facility] [employer] [facility] 08/10/2023 10:56:55 08/16/2023 text/html Duarte is seen today for routine rounding RN SOCIAL SERVICES 30 day visit. Past medical history of ETOH abuse with withdrawal seizures, cocaine abuse, asthma. Duarte is alert and verbal in NAD. He has been stable seen his last rounding visit, there is no complaints, there is no acute nursing concerns. MIKE REYNOLDS [address], [address], [place], [address], [facility] 08/16/2023 11:03:33 08/25/2023 text/html ROS as noted in the HPI Duarte is seen today for discharge. Past medical history of ETOH abuse with withdrawal seizures, cocaine abuse, asthma. Duarte is alert and verbal in NAD. He has been stable seen his last rounding visit, there is no complaints, there is no acute nursing concerns. Dayana valle [address], [address], [place], [address], [facility] 08/25/2023 10:26:05
--- OUTSIDE RECORDS SUMMARY | 2025-08-28 01:13 | XMS_ITS | Clinical Summary ---
Author Organization [facility] Address [address] [place] [address] Phone Care Team Providers Care Technician Assistant Name Role Phone Ramin Arnold MD Primary Care Provider [phone] Allergies Active Allergy Reactions Criticality Noted Date [...] patient's age to complete this topic IPV VACCINES Aged Out No longer eligi ble based on patient's age to complete this topic MENINGOCOCCAL VACCINES (ACWY) Aged Out No longer eligible based on patient's age to complete this topic MENINGOCOCCAL VACCINES (B) Aged Out N o longer eligible based on patient's age to complete this topic Medical Devices Not on file Insurance Advance Directives For more information, please contact: [phone] (9AM - 5PM [place], Monday-Monday) * Full Code (Latest Code Status on File) Date Activated Date Inactivated Comments 11/16/2024 5:47 PM Question Answer Comments Code Status Confirmed With: Patient * Full Code Date Activated Date Inactivated Comments 11/16/2024 5:45 PM 11/16/2024 5:47 PM Question Answer Comments Code Status Confirmed With: Other (specify below ) Care Teams Technician Assistant Relationship Specialty Start Date End Date Ramin Arnold MD [email or web address] PCP - General Family Medicine 05/19/20 Additional Source Comments The information contained in this document represents components of the legal health record. It is not the complete legal health record.[facility]
--- OUTSIDE RECORDS SUMMARY | 2025-08-28 01:13 | XMS_ITS | Encounter Summary ---
Author Organization [facility] Address [address] [place] [address] Phone Care Team Providers Care Control Panel Tester Name Role Phone Ramin Arnold MD Primary Care Provider [phone] Encounter Details Date Type Department Care Team (Late st Contact Info) Description 11/17/2024 Procedure Pass [facility]PT [address] [place] [address] Social History Tobacco Use Types Packs/Day Years [...] on filedocumented in this encounter Care Teams Control Panel Tester Relationship Specialty Start Date End Date Ramin Arnold MD [email or web address] PCP - General Family Medicine 05/19/20 documented as of this encounter Additional Source Comments The information contained in this document represents components of the legal health record. It is not the complete legal health record.[facility]
--- OUTSIDE RECORDS SUMMARY | 2025-08-28 01:13 | XMS_ITS | Encounter Summary ---
Author Organization [facility] Address [address] [place] [address] Phone Care Team Providers Care Textile Machine Mechanic Name Role Phone Ramin Arnold MD Primary Care Provider [phone] Encounter Details Date Type Department Care Team (Late st Contact Info) Description 11/16/2024 Procedure Pass [facility] [address], [address] [place] [address] Social History Tobacco Use Types Packs/Day Years [...] 11/16/2024 5:00 PM Ju Hines RN * Jack Suicide Severity Rating Scale (Screener/Recent Self-Report) Question [...] on filedocumented in this encounter Care Teams Textile Machine Mechanic Relationship Specialty Start Date End Date Ramin Arnold MD PCP - General Family Medicine 05/19/20 documented as of this encounter Additional Source Comments The information contained in this document represents components of the legal health record. It is not the complete legal health record.[facility]
--- OUTSIDE RECORDS SUMMARY | 2025-08-28 01:13 | XMS_ITS | Encounter Summary ---
Author Organization [facility] Address [address] [place] [address] Phone Care Team Providers Care Miller First Name Role Phone Ramin Arnold MD Primary Care Provider [phone] Encounter Details Date Type Department Care Team (Late st Contact Info) Description 05/21/2020 Transcribe Orders [facility] Specimen Processing [address] [place] [address] Ramin Arnold MD [address] [place] [address] [address], [address] [place] [address] [email or web address] COVID-19 ruled out (Primary Dx) Social History [...] 5:36 PM EDT) Specimen Source NASOPHARYNGEAL SWAB (FINE JEWELRY SALES ASSOCIATE) [facility] COVID Testing Status Sent to [facility] Micro Lab [facility] Other 05/21/2020 5:36 PM EDT 05/21/2020 5:47 PM EDT us Ramin Arnold MD LAB GENERAL ORDERABLES Final Res ult [facility] [address] [place] [address] documented in this encounter Visit Diagnoses Diagnosis COVID-19 ruled out- Primary documented in this encounter Additional Health Concerns Infection Onset Date Last Indicated Resolved Time CoV-Exposed Comment:Recent close contact 05/21/2020 05/21/2020 06/04/2020 1:23 AM EDT CoV-Exposed Comment:Recent close contact 06/04/2020 06/04/2020 06/18/2020 1:24 AM EDT CoV-Exposed Comment:Recent close contact 08/26/2020 08/26/2020 09/09/2020 1:24 AM EST documented as of this encounter Care Teams Miller First Relationship Specialty Start Date End Date Ramin Arnold MD [email or web address] PCP - General Family Medicine 05/19/20 documented as of this encounter Additional Source Comments The information contained in this document represents components of the legal health record. It is not the complete legal health record.[facility]
--- OUTSIDE RECORDS SUMMARY | 2025-08-28 01:13 | XMS_ITS | Encounter Summary ---
Author Organization [facility] Address [address] [place] [address] Phone Care Team Providers Care Peanut Shaker Name Role Phone Ramin Arnold MD Primary Care Provider [phone] Encounter Details Date Type Department Care Team (Late st Contact Info) Description 11/19/2024 Ophth Exam [facility]DA Oph Trauma Main [place] [address] [place] [address] Laurence Coelho MD [address] [place] [address] [email or web address] Social History Tobacco Use Types Packs/Day Years [...] on filedocumented in this encounter Care Teams Peanut Shaker Relationship Specialty Start Date End Date Ramin Arnold MD [email or web address] PCP - General Family Medicine 05/19/20 documented as of this encounter Additional Source Comments The information contained in this document represents components of the legal health record. It is not the complete legal health record.[facility]
[2025-08-28 01:30] LABS: Anion Gap 17 (12-20); Blood Urea Nitrogen 9 mg/dL (9-16); Calcium 8.5 mg/dL (8.4-10.2); Cannabinoid Screen Urine Not Detected (Not Detect); Carbon Dioxide 27 mmol/L (22-29); Chloride 105 mmol/L (96-108); Creatinine Clr Calc Pharmacy 134.5; Estimated Glomerular Filt Rate > 60; Magnesium 1.9 mg/dL (1.6-2.6); Potassium 3.2 mmol/L (3.3-5.1); Sodium 146 mmol/L (135-145)
[2025-08-28 01:33] LABS: Hematocrit 33.4 % (42.0-52.0); Hemoglobin 11.4 g/dl (14.0-18.0); Imm Gran Abs Auto 0.03 X10*3/uL (0.00-0.03); Imm Gran Pct Auto 1.3 % (0.0-0.4); Lymphocytes Absolute Auto 1.2 X10*3/uL (1.2-4.9); MANUAL DIFF FLAG SCAN; Mean Corpuscular HGB Conc 34.1 g/dl (31.0-36.0); Mean Corpuscular Hemoglobin 32.1 pg (27.0-33.0); Mean Corpuscular Volume 94.1 fL (80.0-98.0); NRBC Abs Auto 0.000 X10*3/uL (0.0-0.012); NRBC Pct Auto 0.0 /100WBC (0.0-0.2); Red Blood Count 3.55 X10*6/uL (4.60-5.80); SCAN SMEAR FLAG 1
[2025-08-28 01:34] LABS: Platelet Count 72 X10*3/uL (160-400); White Blood Count 2.3 X10*3/uL (4.8-10.8)
[2025-08-28] MEDS: Potassium Chloride ER 20 MEQ TAB.ER.PRT 40 MEQ PO (02:27)
--- NOTE | 2025-08-28 07:40 | PC.NURSE ---
pt is asleep but easily arousable but falls right back to sleep easily, respirations even and unlabored, skin appropriate for ethnicity, pt is reporting headache and back pain
== END 2025-08-28 09:19 | disposition home or self-care (01) ==
PROVIDERS: Physician Assistant Medical; Emergency Provider Emergency Medicine
DX: S39.92XA Unspecified injury of lower back, initial encounter (principal); F10.129 Alcohol abuse with intoxication, unspecified; Y90.8 Blood alcohol level of 240 mg/100 ml or more; E87.6 Hypokalemia; M54.50 Low back pain, unspecified; M54.2 Cervicalgia; R51.9 Headache, unspecified; X58.XXXA Exposure to other specified factors, initial encounter; W19.XXXA Unspecified fall, initial encounter; Y93.L9 Activity, other outdoor activity; Y92.480 Sidewalk as the place of occurrence of the external cause; Y99.8 Other external cause status; Z87.891 Personal history of nicotine dependence; Z51.81 Encounter for therapeutic drug level monitoring; Z79.899 Other long term (current) drug therapy
CPT/HCPCS: 36415; 70450; 72125; 72131; 80048; 80307; 83735; 85025; 99284; 99285

== ENCOUNTER → 2025-08-28 00:39 | Outpatient (BNV) | payer MEDICAID, SELFPAY | PROVIDERS: Emergency Provider Emergency Medicine; Visit Provider Radiology Diagnostic Radiology | DX: F10.929 Alcohol use, unspecified with intoxication, unspecified (principal); Z04.3 Encounter for examination and observation following other accident; K80.20 Calculus of gallbladder without cholecystitis without obstruction; K76.0 Fatty (change of) liver, not elsewhere classified; N32.89 Other specified disorders of bladder | CPT/HCPCS: 70450; 72125; 72131 ==

== ENCOUNTER 2025-08-28 20:45 | Emergency (ER) | payer MEDICAID, SELFPAY ==
[2025-08-28 21:10] VITALS: BP 91/57; BP 98/74; PULSE 66; PULSE 94; RESP 16; TEMP 36.8; O2SAT 94; BMI 23.1
--- OUTSIDE RECORDS SUMMARY | 2025-08-28 21:21 | XMS_ITS | Clinical Summary ---
Author Organization [facility] it Address [address] [place] [address] Care Team Providers Care Lotus Notes Developer Name Role Phone Unavailable Primary Care Provider [...] Depression Screening 10/16/2024 COVID-19 Vaccine (1 - 2024-2 6 season) 2025 Influenza Vaccine (#1) 2025 RSV [...]
--- OUTSIDE RECORDS SUMMARY | 2025-08-28 21:21 | XMS_ITS | Encounter Summary ---
Author Organization [facility] Address [address] [place] [address] Phone Care Team Providers Care Orthotic Assistant Name Role Phone Ramin Arnold MD Primary Care Provider [phone] Encounter Details Date Type Department Care Team ([facility] st Contact Info) Description 11/16/2024 Ophth Exam AMANDA Consult from [address] [address] Lit Price MD [address] [place] [address] [email or web address] Social History Tobacco Use Types Packs/Day Years [...] 11/16/2024 5:00 PM Ju Hines RN * [facility] Suicide Severity Rating Scale (Screener/Recent Self-Report) Question [...] on filedocumented in this encounter Care Teams Orthotic Assistant Relationship Specialty Start Date End Date Ramin Arnold MD [email or web address] PCP - General Family Medicine 05/19/20 documented as of this encounter Additional Source Comments The information contained in this document represents components of the legal health record. It is not the complete legal health record.[facility]
--- OUTSIDE RECORDS SUMMARY | 2025-08-28 21:21 | XMS_ITS | Encounter Summary ---
Author Organization [facility] Address [address] [place] [address] Phone Care Team Providers Care Manager Report Name Role Phone Ramin Arnold MD Primary Care Provider [phone] Encounter Details Date Type Department Care Team (Late st Contact Info) Description 05/21/2020 Transcribe Orders [facility] Specimen Processing [address] [place] [address] Ramin Arnold MD [address] [place] [address] [address], [address] [place] [address] [email or web address] COVID-19 ruled out (Primary Dx) Social History [...] 5:36 PM EDT) Specimen Source NASOPHARYNGEAL SWAB (PUBLIC UTILITIES SALES REPRESENTATIVE) [facility] COVID Testing Status Sent to [facility] Micro Lab [facility] Other 05/21/2020 5:36 PM EDT 05/21/2020 5:47 PM EDT us Ramin Arnold MD LAB GENERAL ORDERABLES Final Res ult [facility] [address] [place] [address] documented in this encounter Visit Diagnoses Diagnosis COVID-19 ruled out- Primary documented in this encounter Additional Health Concerns Infection Onset Date Last Indicated Resolved Time CoV-Exposed Comment:Recent close contact 05/21/2020 05/21/2020 06/04/2020 1:23 AM EDT CoV-Exposed Comment:Recent close contact 06/04/2020 06/04/2020 06/18/2020 1:24 AM EDT CoV-Exposed Comment:Recent close contact 08/26/2020 08/26/2020 09/09/2020 1:24 AM EST documented as of this encounter Care Teams Manager Report Relationship Specialty Start Date End Date Ramin Arnold MD [email or web address] PCP - General Family Medicine 05/19/20 documented as of this encounter Additional Source Comments The information contained in this document represents components of the legal health record. It is not the complete legal health record.[facility]
--- OUTSIDE RECORDS SUMMARY | 2025-08-28 21:21 | XMS_ITS | Encounter Summary ---
Author Organization [facility] Address [address] [place] [address] Phone Care Team Providers Care Site Worker Name Role Phone Ramin Arnold MD Primary Care Provider [phone] Encounter Details Date Type Department Care Team (Late st Contact Info) Description 11/16/2024 Procedure Pass [facility], [address] [facility], [address] [place] [address] Social History Tobacco Use Types Packs/Day Years [...] 11/16/2024 5:00 PM Ju Hines RN * [place] Suicide Severity Rating Scale (Screener/Recent Self-Report) Question [...] on filedocumented in this encounter Care Teams Site Worker Relationship Specialty Start Date End Date Ramin Arnold MD PCP - General Family Medicine 05/19/20 documented as of this encounter Additional Source Comments The information contained in this document represents components of the legal health record. It is not the complete legal health record.[facility]
--- OUTSIDE RECORDS SUMMARY | 2025-08-28 21:21 | XMS_ITS | Encounter Summary ---
Author Organization [facility] Address [address] [place] [address] Phone Care Team Providers Care Permanent Waver Name Role Phone Ramin Arnold MD Primary Care Provider Encounter Details Date Type Department Care Team (Late st Contact Info) Description 11/17/2024 Procedure Pass [facility] [address] PERIOP DEPT [address] [place] [address] Social History Tobacco Use Types Packs/Day Years [...] on filedocumented in this encounter Care Teams Permanent Waver Relationship Specialty Start Date End Date Ramin Arnold MD [email or web address] PCP - General Family Medicine 05/19/20 documented as of this encounter Additional Source Comments The information contained in this document represents components of the legal health record. It is not the complete legal health record.[facility]
--- OUTSIDE RECORDS SUMMARY | 2025-08-28 21:21 | XMS_ITS | Encounter Summary ---
Author Organization [facility] Address [address] [place] [address] Phone Care Team Providers Care Anvil Seating Press Operator Name Role Phone Ramin Arnold MD Primary Care Provider [phone] Encounter Details Date Type Department Care Team (Late st Contact Info) Description 11/16/2024 Ophth Exam [facility] Oph Trauma Main [place] [address] [place] [address] Laurence Coelho MD [address] [place] [address] [email or web address] Social History Tobacco Use Types Packs/Day [...] 11/16/2024 5:00 PM Ju Hines RN * [place] Suicide Severity Rating Scale (Screener/Recent Self-Report) Question [...] on filedocumented in this encounter Care Teams Anvil Seating Press Operator Relationship Specialty Start Date End Date Ramin Arnold MD [email or web address] PCP - General Family Medicine 05/19/20 documented as of this encounter Additional Source Comments The information contained in this document represents components of the legal health record. It is not the complete legal health record.[facility]
--- OUTSIDE RECORDS SUMMARY | 2025-08-28 21:21 | XMS_ITS | Encounter Summary ---
Author Organization [facility] Address [address] [place] [address] Phone Care Team Providers Care Shank Piece Tacker Name Role Phone Ramin Arnold MD Primary Care Provider [phone] Encounter Details Date Type Department Care Team (Late st Contact Info) Description 11/19/2024 Ophth Exam [facility] Oph Trauma Main [place] [address] [place] [address] Laurence Coelho MD [address] [place] [address] [email or web address] Social History Tobacco Use Types Packs/Day Years [...] on filedocumented in this encounter Care Teams Shank Piece Tacker Relationship Specialty Start Date End Date Ramin Arnold MD [email or web address] PCP - General Family Medicine 05/19/20 documented as of this encounter Additional Source Comments The information contained in this document represents components of the legal health record. It is not the complete legal health record.[facility]
--- OUTSIDE RECORDS SUMMARY | 2025-08-28 21:21 | XMS_ITS | Clinical Summary ---
Author Organization [facility] Address [address] [place] [address] Phone Care Team Providers Care Template Inspector Name Role Phone Ramin Arnold MD Primary Care Provider [phone] Allergies Active Allergy Reactions Criticality Noted Date [...] Advance Directives For more information, please contact: [phone] (9AM - 5PM [place], Monday-Monday) * Full Code (Latest Code Status on File) Date Activated Date Inactivated Comments 11/16/2024 5:47 PM Question Answer Comments Code Status Confirmed With: Patient * Full Code Date Activated Date Inactivated Comments 11/16/2024 5:45 PM 11/16/2024 5:47 PM Question Answer Comments Code Status Confirmed With: Other (specify below ) Care Teams Template Inspector Relationship Specialty Start Date End Date Ramin Arnold MD [email or web address] PCP - General Family Medicine 05/19/20 Additional Source Comments The information contained in this document represents components of the legal health record. It is not the complete legal health record.[facility]
[2025-08-28 21:28] VITALS: BP 91/57; PULSE 65; RESP 16; TEMP 36.8; O2SAT 94
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
[2025-08-29 06:00] VITALS: BP 103/77; PULSE 65; RESP 16; TEMP 36.8; O2SAT 94
--- NOTE | 2025-08-29 06:31 | PC.NURSE ---
patient is saying he would like to get up and leave the hospital. confused saying we are making him stay here for days already. redirected and explained about his current condition and need to have surgery today. told patient he will be going upstairs to a real room with a more comfortable bed and his daughters will be visiting him this morning. pt seemed to settle and fall back asleep at this time
[2025-08-29 06:56] VITALS: BP 103/77; PULSE 65; RESP 16; TEMP 36.8; O2SAT 94
== END 2025-08-29 06:57 | disposition home or self-care (01) ==
PROVIDERS: Emergency Provider Emergency Medicine
DX: F10.129 Alcohol abuse with intoxication, unspecified (principal); Y90.9 Presence of alcohol in blood, level not specified; Z87.891 Personal history of nicotine dependence
CPT/HCPCS: 99284

== ENCOUNTER 2025-09-08 11:36 | Emergency (ER) | payer MEDICAID, SELFPAY ==
--- NOTE | 2025-09-08 | ECG_ITS ---
Test Reason : seizure Blood Pressure : */* mmHG Vent. Rate : 93 BPM Atrial Rate : 93 BPM P-R Int : 170 ms QRS Dur : 82 ms QT Int : 366 ms P-R-T Axes : 28 32 29 degrees QTcB Int : 455 ms Normal sinus rhythm Normal ECG When compared with ECG of 07-Aug-2025 19:22, Vent. rate has increased by 38 bpm QT has lengthened Referred By: Lisa Cartwright Electronically Signed By: Alistair Arcos
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
[2025-09-08 11:52] VITALS: BP 115/70; PULSE 104; PULSE 115; RESP 20; TEMP 37.7; O2SAT 93; BMI 26.4
--- NOTE | 2025-09-08 11:57 | PC.NURSE ---
patient currently a&ox3, iv previously inserted by ems, educational therapist applied- sinus tach on monitor, seizure precautions in place/fall precautions in place, pt awaiting provider evaluation, call braun within reach, plan of care ongoing
[2025-09-08 12:50] LABS: Hemoglobin 10.7 g/dl (14.0-18.0); Lymphocytes Absolute Auto 0.3 X10*3/uL (1.2-4.9); Mean Corpuscular Volume 95.2 fL (80.0-98.0); NRBC Abs Auto 0.000 X10*3/uL (0.0-0.012); NRBC Pct Auto 0.0 /100WBC (0.0-0.2); PLT CLUMP 1; SCAN SMEAR FLAG 1
[2025-09-08 12:52] LABS: Hematocrit 31.7 % (42.0-52.0); Imm Gran Abs Auto 0.10 X10*3/uL (0.00-0.03); Imm Gran Pct Auto 1.0 % (0.0-0.4); MANUAL DIFF FLAG SCAN; Mean Corpuscular HGB Conc 33.8 g/dl (31.0-36.0); Mean Corpuscular Hemoglobin 32.1 pg (27.0-33.0); Red Blood Count 3.33 X10*6/uL (4.60-5.80)
[2025-09-08 13:07] LABS: Platelet Count 73 X10*3/uL (160-400); White Blood Count 10.4 X10*3/uL (4.8-10.8)
[2025-09-08 13:16] LABS: Anion Gap 14 (12-20); Blood Urea Nitrogen 8 mg/dL (9-16); Calcium 8.6 mg/dL (8.4-10.2); Carbon Dioxide 25 mmol/L (22-29); Chloride 99 mmol/L (96-108); Creatinine Clr Calc Pharmacy 146.5; Estimated Glomerular Filt Rate > 60; Magnesium 1.4 mg/dL (1.6-2.6); Potassium 3.2 mmol/L (3.3-5.1); Sodium 135 mmol/L (135-145)
[2025-09-08] MEDS: Lactated Ringers 1,000 ML 999 ML IV ×2 (13:42→16:20)
[2025-09-08] MEDS: Thiamine HCL 100 MG in 0.9 % Sodium Chloride 100 ML 202 MG IV (13:43)
[2025-09-08] MEDS: Magnesium Sulfate/H2O 2 GM/50 ML PIGGYBACK IV (13:48)
[2025-09-08] MEDS: Potassium Chloride/H20 10 MEQ/100 ML PIGGYBACK 100 MEQ IV (14:04)
[2025-09-08] MEDS: Potassium Bicarbonate/Cit AC 25 MEQ TABLET.EFF 50 MEQ PO (14:04)
--- NOTE | 2025-09-08 14:06 | PC.NURSE ---
pt medicated per orders
[2025-09-08] MEDS: Diphth,Pertus(ACell),Tet Adult 0.5 ML SYRINGE IM (14:30)
[2025-09-08 14:31] VITALS: BP 116/77; PULSE 93; RESP 16; TEMP 37.2; O2SAT 96
--- NOTE | 2025-09-08 14:43 | PC.NURSE ---
pt sleeping, wakes to verbal stimulus, vss, fluids infusing slowly. pt given tetanus shot, court monitor nsr, call braun within reach, plan of care ongoing
--- OUTSIDE RECORDS SUMMARY | 2025-09-08 16:02 | XMS_ITS | Encounter Summary ---
Author Organization [facility] Address [address] [place] [address] Phone Care Team Providers Care Drill Foreman Name Role Phone Ramin Arnold MD Primary Care Provider [phone] Encounter Details Date Type Department Care Team (Late st Contact Info) Description 11/19/2024 Ophth Exam AMANDA Oph Trauma Main [address] [place] [address] Laurence Coelho MD [address] [place] [phone] [email or web address] Social History Tobacco Use Types Packs/Day Years [...] on filedocumented in this encounter Care Teams Drill Foreman Relationship Specialty Start Date End Date Ramin Arnold MD [email or web address] PCP - General Family Medicine 05/19/20 documented as of this encounter Additional Source Comments The information contained in this document represents components of the legal health record. It is not the complete legal health record.[facility]
--- OUTSIDE RECORDS SUMMARY | 2025-09-08 16:02 | XMS_ITS | Encounter Summary ---
Author Organization [facility] Address [address] [place] [address] Phone Care Team Providers Care Joy Operator Helper Name Role Phone Ramin Arnold MD Primary Care Provider [phone] Encounter Details Date Type Department Care Team (Late st Contact Info) Description 11/17/2024 Procedure Pass AMANDA 6TH FL PERIOP DEPT [address] [place] [address] Social History Tobacco Use Types Packs/Day Years [...] on filedocumented in this encounter Care Teams Joy Operator Helper Relationship Specialty Start Date End Date Ramin Arnold MD [email or web address] PCP - General Family Medicine 05/19/20 documented as of this encounter Additional Source Comments The information contained in this document represents components of the legal health record. It is not the complete legal health record.[facility]
--- OUTSIDE RECORDS SUMMARY | 2025-09-08 16:02 | XMS_ITS | Encounter Summary ---
Author Organization [facility] Address [address] [place] [address] Phone Care Team Providers Care Film Coater Name Role Phone Ramin Arnold MD Primary Care Provider [phone] Encounter Details Date Type Department Care Team (Late st Contact Info) Description 05/21/2020 Transcribe Orders [facility] Specimen Processing [address] [place] [address] Ramin Arnold MD [address] [place] [address] [address] [place] [address] [email or web address] COVID-19 [...] 5:36 PM EDT) Specimen Source NASOPHARYNGEAL SWAB (TRAVELING STOREKEEPER) [facility] COVID Testing Status Sent to [facility] Other 05/21/2020 5:36 PM EDT 05/21/2020 5:47 PM EDT us Ramin Arnold MD LAB GENERAL ORDERABLES Final Res ult [facility] [address] [place] [address] documented in this encounter Visit Diagnoses Diagnosis COVID-19 ruled out- Primary documented in this encounter Additional Health Concerns Infection Onset Date Last Indicated Resolved Time CoV-Exposed Comment:Recent close contact 05/21/2020 05/21/2020 06/04/2020 1:23 AM EDT CoV-Exposed Comment:Recent close contact 06/04/2020 06/04/2020 06/18/2020 1:24 AM EDT CoV-Exposed Comment:Recent close contact 08/26/2020 08/26/2020 09/09/2020 1:24 AM EST documented as of this encounter Care Teams Film Coater Relationship Specialty Start Date End Date Ramin Arnold MD [email or web address] PCP - General Family Medicine 05/19/20 documented as of this encounter Additional Source Comments The information contained in this document represents components of the legal health record. It is not the complete legal health record.[facility]
--- OUTSIDE RECORDS SUMMARY | 2025-09-08 16:02 | XMS_ITS | Clinical Summary ---
Author Organization [facility] it Address [address] [place] [address] Care Team Providers Care Application Tester Name Role Phone Unavailable Primary Care Provider [...]
--- OUTSIDE RECORDS SUMMARY | 2025-09-08 16:02 | XMS_ITS | Encounter Summary ---
Author Organization [facility] Address [address] [place] [address] Phone Care Team Providers Care Merchandising Execution Manager Name Role Phone Ramin Arnold MD Primary Care Provider [phone] Encounter Details Date Type Department Care Team ([facility] st Contact Info) Description 11/16/2024 Ophth Exam AMANDA Consult from [address] [address] Lit Price MD [address] [place] [phone] [email or web address] Social History Tobacco Use Types Packs/Day [...] 11/16/2024 5:00 PM Ju Hines RN * [place] Suicide Severity Rating Scale (Screener/Recent Self-Report) Question [...] on filedocumented in this encounter Care Teams Merchandising Execution Manager Relationship Specialty Start Date End Date Ramin Arnold MD [email or web address] PCP - General Family Medicine 05/19/20 documented as of this encounter Additional Source Comments The information contained in this document represents components of the legal health record. It is not the complete legal health record.[facility]
--- OUTSIDE RECORDS SUMMARY | 2025-09-08 16:02 | XMS_ITS | Encounter Summary ---
Author Organization [facility] Address [address] [place] [address] Phone Care Team Providers Care Human Resources Team Member Name Role Phone Ramin Arnold MD Primary Care Provider [phone] Encounter Details Date Type Department Care Team (Late st Contact Info) Description 11/16/2024 Procedure Pass [facility] [place], [address] [facility], [address] [place] [address] Social History Tobacco Use Types Packs/Day Years [...] 11/16/2024 5:00 PM Ju Hines RN * [place] Suicide Severity Rating Scale (Screener/Recent Self-Report) [...] on filedocumented in this encounter Care Teams Human Resources Team Member Relationship Specialty Start Date End Date Ramin Arnold MD PCP - General Family Medicine 05/19/20 documented as of this encounter Additional Source Comments The information contained in this document represents components of the legal health record. It is not the complete legal health record.[facility]
--- OUTSIDE RECORDS SUMMARY | 2025-09-08 16:02 | XMS_ITS | Encounter Summary ---
Author Organization [facility] Address [address] [place] [address] Phone Care Team Providers Care Orchid Worker Name Role Phone Ramin Arnold MD Primary Care Provider [phone] Encounter Details Date Type Department Care Team (Late st Contact Info) Description 11/16/2024 Ophth Exam AMANDA Oph Trauma Main [place] [address] [place] [address] Laurence Coelho MD [address] [place] [phone] [email or web address] Social History Tobacco Use Types Packs/Day Years [...] 11/16/2024 5:00 PM Ju Hines RN * [place] Suicide Severity Rating Scale (Screener/Recent Self-Report) Question [...] on filedocumented in this encounter Care Teams Orchid Worker Relationship Specialty Start Date End Date Ramin Arnold MD [email or web address] PCP - General Family Medicine 05/19/20 documented as of this encounter Additional Source Comments The information contained in this document represents components of the legal health record. It is not the complete legal health record.[facility]
--- OUTSIDE RECORDS SUMMARY | 2025-09-08 16:03 | XMS_ITS | Clinical Summary ---
Author Organization [facility] Address [address] [place] [address] Phone Care Team Providers Care Rn Pacu Name Role Phone Ramin Arnold MD Primary Care Provider [phone] Allergies Active Allergy Reactions Criticality Noted Date [...] Advance Directives For more information, please contact: [phone] (9AM - 5PM Sil/[facility], Monday-Monday) * Full Code (Latest Code Status on File) Date Activated Date Inactivated Comments 11/16/2024 5:47 PM Question Answer Comments Code Status Confirmed With: Patient * Full Code Date Activated Date Inactivated Comments 11/16/2024 5:45 PM 11/16/2024 5:47 PM Question Answer Comments Code Status Confirmed With: Other (specify below ) Care Teams Rn Pacu Relationship Specialty Start Date End Date Ramin Arnold MD [email or web address] PCP - General Family Medicine 05/19/20 Additional Source Comments The information contained in this document represents components of the legal health record. It is not the complete legal health record.[facility]
--- NOTE | 2025-09-08 16:21 | PC.NURSE ---
this RN ambulated with patient, O2 remained 95-96%, HR up to 130s with ambulation, pt c/o headache and feels weak MD made aware.pt back in bed on bus driver/monitor, HR down to 90. second liter LR started as ordered.
[2025-09-08 18:41] VITALS: RESP 18
--- NOTE | 2025-09-08 18:42 | PC.NURSE ---
pt currently sleeping, rr equal/non labored, seizure precautions intact, cardiac technician intact, call braun within reach, plan of care ongoing
[2025-09-08 19:24] VITALS: BP 123/77; PULSE 84; RESP 14; TEMP 36.6; O2SAT 97
[2025-09-08 19:32] VITALS: BP 123/77; PULSE 84; RESP 14; TEMP 36.6; O2SAT 97
== END 2025-09-08 19:47 | disposition home or self-care (01) ==
PROVIDERS: Emergency Provider Student in an Organized Health Care Education/Training Program; PCP Internal Medicine
DX: E83.42 Hypomagnesemia (principal); E87.6 Hypokalemia; F10.90 Alcohol use, unspecified, uncomplicated; Y90.0 Blood alcohol level of less than 20 mg/100 ml; S09.90XA Unspecified injury of head, initial encounter; W19.XXXA Unspecified fall, initial encounter; Y93.02 Activity, running; Y92.89 Other specified places as the place of occurrence of the external cause; R56.9 Unspecified convulsions; Z23 Encounter for immunization
CPT/HCPCS: 36415; 70450; 72125; 80048; 80307; 83735; 85025; 90471; 90715; 93005; 96361; 96374; 96375; 99285; J3411; J3475; J3480; J7120

== ENCOUNTER → 2025-09-08 12:25 | Outpatient (BNV) | payer MEDICAID, SELFPAY | PROVIDERS: Emergency Provider Student in an Organized Health Care Education/Training Program; PCP Internal Medicine; Visit Provider Internal Medicine Cardiovascular Disease | DX: R56.9 Unspecified convulsions (principal) | CPT/HCPCS: 93010 ==

== ENCOUNTER → 2025-09-08 12:38 | Outpatient (BNV) | payer MEDICAID, SELFPAY | PROVIDERS: Emergency Provider Student in an Organized Health Care Education/Training Program; PCP Internal Medicine; Visit Provider Radiology Diagnostic Radiology | DX: M54.2 Cervicalgia (principal); S09.90XA Unspecified injury of head, initial encounter; W01.198A Fall on same level from slipping, tripping and stumbling with subsequent striking against other object, initial encounter; Y92.85 Railroad track as the place of occurrence of the external cause | CPT/HCPCS: 70450; 72125 ==

== ENCOUNTER 2025-09-15 15:06 | Emergency (ER) | payer MEDICAID, SELFPAY ==
[2025-09-15 15:11] VITALS: BP 146/84; PULSE 94; O2SAT 98; BMI 24.7
--- NOTE | 2025-09-15 15:37 | PC.NURSE ---
piano mover with Daurte from security. Items placed in tosin port shelf 1
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
[2025-09-15 16:32] VITALS: BP 114/77; PULSE 101; RESP 16; O2SAT 94
[2025-09-15 17:17] LABS: Anion Gap 12 (12-20); Blood Urea Nitrogen 6 mg/dL (9-16); Calcium 8.6 mg/dL (8.4-10.2); Cannabinoid Screen Urine Not Detected (Not Detect); Carbon Dioxide 30 mmol/L (22-29); Chloride 110 mmol/L (96-108); Creatinine Clr Calc Pharmacy 182.6; Estimated Glomerular Filt Rate > 60; Magnesium 1.8 mg/dL (1.6-2.6); Potassium 3.4 mmol/L (3.3-5.1); Sodium 149 mmol/L (135-145)
[2025-09-15 17:50] LABS: Hematocrit 35.7 % (42.0-52.0); Hemoglobin 11.7 g/dl (14.0-18.0); Imm Gran Abs Auto 0.07 X10*3/uL (0.00-0.03); Imm Gran Pct Auto 1.8 % (0.0-0.4); Lymphocytes Absolute Auto 1.8 X10*3/uL (1.2-4.9); MANUAL DIFF FLAG SCAN; Mean Corpuscular HGB Conc 32.8 g/dl (31.0-36.0); Mean Corpuscular Hemoglobin 31.8 pg (27.0-33.0); Mean Corpuscular Volume 97.0 fL (80.0-98.0); NRBC Abs Auto 0.000 X10*3/uL (0.0-0.012); NRBC Pct Auto 0.0 /100WBC (0.0-0.2); Platelet Count 238 X10*3/uL (160-400); Red Blood Count 3.68 X10*6/uL (4.60-5.80); SCAN SMEAR FLAG 1; White Blood Count 3.8 X10*3/uL (4.8-10.8)
[2025-09-15 18:00] VITALS: RESP 17
--- OUTSIDE RECORDS SUMMARY | 2025-09-15 18:50 | XMS_ITS | Encounter Summary ---
Author Organization [facility] Address [address] [place] [address] Phone Care Team Providers Care Bathroom Tiling Professional Name Role Phone Ramin Arnold MD Primary Care Provider [phone] Encounter Details Date Type Department Care Team (Late st Contact Info) Description 11/16/2024 Procedure [place] [facility] [place] [address] [facility], [address] Floor, [address] [place] [address] Social History Tobacco Use Types Packs/Day Years [...] 11/16/2024 5:00 PM Ju Hines RN * [place] Suicide Severity Rating Scale (Screener/Recent Self-Report) Question [...] on filedocumented in this encounter Care Teams Bathroom Tiling Professional Relationship Specialty Start Date End Date Ramin Arnold MD PCP - General Family Medicine 05/19/20 documented as of this encounter Additional Source Comments The information contained in this document represents components of the legal health record. It is not the complete legal health record.[facility]
--- OUTSIDE RECORDS SUMMARY | 2025-09-15 18:50 | XMS_ITS | Clinical Summary ---
Author Organization [facility] Address [address] [place] [id number] Phone Care Team Providers Care Senior Clinician Name Role Phone Ramin Arnold MD Primary Care Provider [phone] Allergies Active Allergy Reactions Criticality Noted Date [...] Advance Directives For more information, please contact: [phone] (9AM - 5PM [facility], Monday-Monday) * Full Code (Latest Code Status on File) Date Activated Date Inactivated Comments 11/16/2024 5:47 PM Question Answer Comments Code Status Confirmed With: Patient * Full Code Date Activated Date Inactivated Comments 11/16/2024 5:45 PM 11/16/2024 5:47 PM Question Answer Comments Code Status Confirmed With: Other (specify below ) Care Teams Senior Clinician Relationship Specialty Start Date End Date Ramin Arnold MD [email or web address] PCP - General Family Medicine 05/19/20 Additional Source Comments The information contained in this document represents components of the legal health record. It is not the complete legal health record.[facility]
--- OUTSIDE RECORDS SUMMARY | 2025-09-15 18:50 | XMS_ITS | Encounter Summary ---
Author Organization [facility] Address [address] [place] [id number] Phone Care Team Providers Care Special Education Administrator Name Role Phone Ramin Arnold MD Primary Care Provider [phone] Encounter Details Date Type Department Care Team ([facility] st Contact Info) Description 11/16/2024 Ophth Exam AMANDA Consult from [address] [address] Lit Price MD [address] [place] [phone] [email or web address] Social History Tobacco Use [...] 11/16/2024 5:00 PM Ju Hines RN * [place] Suicide Severity Rating Scale (Screener/Recent Self-Report) Question [...] on filedocumented in this encounter Care Teams Special Education Administrator Relationship Specialty Start Date End Date Ramin Arnold MD [email or web address] PCP - General Family Medicine 05/19/20 documented as of this encounter Additional Source Comments The information contained in this document represents components of the legal health record. It is not the complete legal health record.[facility]
--- OUTSIDE RECORDS SUMMARY | 2025-09-15 18:50 | XMS_ITS | Data Portability ---
Author Organization [facility], Main Office Address [address] [place] [address] Care Team Providers Care Workers Compensation Claims Examiner Name Role Phone [facility] OTHER Assessment Encounter Date [...] Address Organization Details Recorded Time Alcohol dependence 15879162 Active 2019 Riri harman, [facility] 0 10:55:15 Alcohol dependence 04741742 Active 2019 Riri Espinal null, [facility] 0 10:55:21 Sinus bradycardia 24242680 Active 2019 Riri harman, [facility] 0 10:55:22 Asthma 339678036 Active 2019 Riri harman, [facility] [place] 0 10:55:25 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 2022 JESSICA HALEY, ASSESSOR [address], [address], [place], [address], [facility] [place] 3 17:51:39 Homeless 59478577 Active 2022 JESSICA HALEY, ASSESSOR [address], [address], [place], [address], [facility] [place] 3 18:07:02 Asthenia 30945937 Active 2022 JESSICA HALEY, [facility] [address], [place], [address], [facility] [place] 3 18:07:05 Bradycardia 70999110 Active 2022 JESSICA HALEY, [facility] [address], [address], [place], [address], [facility] 3 18:07:11 Laboratory test result abnormal 831124427 Active 2022 JESSICA HALEY, ASSESSOR [address] , [address], [place], [address], [facility] 3 18:07:15 Problem Notes None recorded. Medical Equipment None Reported. Allergies Allergen ID Allergen Name Allergen Category Reaction Reaction Severity Criticality Documentation Date Start Date Code Code System Note Provider Name and Address Organization Details Recorded Time 38311 shellfish derived food,medi cation Not available Not available Not available 05/19/2020 Riri harman, [facility] [place] 0 08:43:01 Medications Not known to be on any medication Vitals Date Recorded Heart rate Respiratory rate Body temperature Oxygen saturation Systolic And Diastolic Provider Name and Address Organization Details Last Updated DateTime 3 78 /min 18 /min 97.4 [degF] 99 % 115/67 mm[Hg] Dayana Sarmiento -Kierkla [address], [place], [address], [facility] 3 10:21:31 Social History Question Answer Notes LastModified by Organizat ion Details LastModified Time Tobacco Smoking Status Current Every Day Smoker 2 a day MIKE REYNOLDS [address], [address], [place], [address], [facility] 07/19/2023 17:16:49 Do You Have An Advance Directive? Yes Information not available 07/19/2023 What Is Your Code Status? Full Code Information not available 07/19/2023 Which Illicit Or Recreational Drugs Have You Used? Crack Cocaine Information not available 07/19/2023 Where Do You Live? Other Homeless Information not available 07/19/2023 Legal Guardian? No Informati on not available 07/19/2023 Do You Have A Medical Power Of [employer] Cookie Maker? No Information not available 07/19/2023 What Was [...] anxious, or unable to sleep at night)? [id number] Information not available 07/19/2023 Family History Relationship [...] 25mcg/0.25 mL dose 2 completed Nicole harman [facility] 10/17/2023 11:43:55 [facility] 14:21:00 Td (adult), 5 Lf tetanus toxoid, preservative free, adsorbed 7 completed Nicole harman [facility] 01/22/2024 14:21:20 Td (adult), 5 Lf tetanus toxoid, preservative free, adsorbed 8 completed Nicole harman [facility] 01/22/2024 14:21:35 pneumococcal polysaccharide PPV23 8 completed Nicole harman [facility] 01/22/2024 14:21:54 pneumococcal polysaccharide PPV23 6 completed Nicole harman [facility] 01/22/2024 14:22:04 Influenza, adjuvanted, quadrivalent, PF 3 completed Nicole harman [place] [facility] 01/22/2024 14:23:02 Past Encounters Encounter ID Performer Location Encounter Start Date Encounter Closed Date Diagnosis/Indication Diagnosis SNOMED-CT Code Diagnosis ICD10 Code Diagnosis IMO Codes Diagnosis Note [id number] MIKE Chen [facility] on [address] [place] [address] 05/19/2020 08:42:26 05/29/2020 13:18:57 Alcohol dependence 70500697 F10.288 Hx of withdrawal seizuresFo lic acid 1 mg dailyThiam ine 100 mg dailyPT OT eval and treat Sinus bradycardia 710553 05 R00.1 Implanted threat monitoring analyst in placeF/u with cardiology Monitor HR Asthma 152542661 J45.99 8 Monitor respirator y status Liver enzy mes level above reference range 073181999 R74.8 Secondary to heavy ETOH useRepeat and monitor [id number] Lois Multani MD [facility] on [address] [place] [address] 05/20/2020 07:06:00 05/29/2020 14:50:19 Alcohol dependence 69913432 F10.20 thiamine 100 mg dailyfolic acid 1 mg dailysocia l work fu to encourage ongoing support and treatment Asthenia 80077482 R53.1 PT/OTwill monitor Liver enzy mes level above reference range 332595308 R74.8 will monitor Sinus bradycardia 715136 05 R00.1 resolvedwi ll monitor [id number] MIKE Chen [facility] on [address] [place] [address] 05/26/2020 09:30:59 05/29/2020 13:59:21 Alcohol dependence 00444701 F10.288 Hx of withdrawal seizuresFo lic acid 1 mg dailyThiam ine 100 mg dailyNo sxs of withdrawal noted Sinus bradycardia 412798 05 R00.1 Implanted threat monitoring analyst in placeF/u with cardiology Monitor HR-ranges 58-88 Asthma 928018195 J45.99 8 Monitor respirator y statusOn no medication s [id number] MIKE Chen [facility] on [address] [place] [address] 06/12/2020 08:31:05 06/16/2020 10:01:54 Alcohol dependence 70933443 F10.288 Hx of withdrawal seizuresFo lic acid 1 mg dailyThiam ine 100 mg dailyNo signs of withdrawal currently Sinus bradycardia 938165 05 R00.1 Implanted threat monitoring analyst in placeF/u with cardiology Monitor HR Asthma 920165166 J45.99 8 Monitor respirator y status Liver enzy mes level above reference range 423915057 R74.8 Secondary to heavy ETOH useRepeat LFTs 06/15 [id number] Riri Espinal [facility] on [address] [place] [address] 06/16/2020 11:47:30 06/18/2020 11:34:00 Alcohol dependence 40245820 F10.288 Hx of withdrawal seizuresFo lic acid 1 mg dailyThiam ine 100 mg dailyNo signs of withdrawal Encouraged to remain sober Sinus bradycardia 744506 05 R00.1 Implanted threat monitoring analyst in placeRemai ns asymptomat ic F/u with cardiology Asthma 662577919 J45.99 8 No respirator y issues currentlyF /u with PCP Liver enzy mes level above reference range 820380752 R74.8 Secondary to heavy ETOH useNow resolved [id number] JESSICA HALEY [facility] on [address] [place] [address] 07/19/2023 15:26:02 07/27/2023 10:51:11 Laboratory test result abnormal 784484925 R89.9 In acute care rhabdo, hypokalemi a, transamini tis, hypomagnes emia , thrombocyt openia, normocytic , metabolic acidosis , normocytic anemia likely related to etoh abuse,,tx with IVF and supplement al replacemen tmonitor labs Alcohol dependence 15670 003 F10.288 hx seizures with withdrawal witnessed clonic tonic seizurestr eated with ativan and phenobarbi talencoura ged abstinence SUDs referralmo nitor for seizure activityco ntinue thiamine 100 mg qdfolate [address] 666 mg tid Bradycardia 12137575 R00 .1 Hx of syncope with implantabl e loop recorderSB in acute care with pausescard iology and EPS consulted- ILR interrogat ed, showed no correlatio n of syncope and pauses, no need for PPM. ILR removed.re commending PSG outpatient to r/o RAND- referral paced in [facility] Harmful pa ttern of use of cocaine 01998255 F14.10 refer to SUDsencour aged abstinence provide supportive services /refer to [facility] Homeless 87271174 Z59.00 long term care social worker for support and services Asthenia 73881817 R53.1 impaired gait/weakn essPT/OT evalMorse 10 Asthma 378574829 J45.99 8 hxnot currently on medication smonitor for resp/clini aldair changes [id number] Lois Multani MD [facility] on [address] [place] [address] 07/21/2023 05:52:30 07/27/2023 11:40:25 Asthenia 17863900 R53.1 PT/OTwill monitor Alcohol dependence 84257 003 F10.288 thiamine 100 mg dailyfolic acid 1 mg dailyacamp rosate 666 mg tldsocial work fu to encourage ongoing support and treatment Bradycardia 29029929 R00 .1 not associated with syncopewil l monitor History of seizure due to alcohol withdrawal 5217286147 93256 Z86.69 completed withdrawal protocolwi ll monitor [id number] MIKE REYNOLDS [facility] on [address] [place] [address] 07/24/2023 09:10:19 07/31/2023 15:03:51 Alcohol dependence 20334376 F10.288 there has been no seizure activity reported. hx seizures with withdrawal witnessed clonic tonic seizurestr eated with ativan and phenobarbi talencoura ged abstinence SUDs referralmo nitor for seizure activityco ntinue thiamine 100 mg qdfolate [address] 666 mg tid Laboratory test result abnormal 568050713 R89.9 In acute care rhabdo, hypokalemi a, transamini tis, hypomagnes emia , thrombocyt openia, normocytic , metabolic acidosis , normocytic anemia likely related to etoh abuse,,tx with IVF and supplement al replacemen tmonitor labs Bradycardia 87453622 R00 .1 denies any cardiac sx today. apical rate 70 Hx of syncope with implantabl e loop recorderSB in acute care with pausescard iology and EPS consulted- ILR interrogat ed, showed no correlatio n of syncope and pauses, no need for PPM. ILR removed.re commending PSG outpatient to r/o RAND- referral paced in [facility] Harmful pa ttern of use of cocaine 26814756 F14.10 refer to SUDsencour aged abstinence provide supportive services /refer to Homeless 48267321 Z59.00 long term care social worker for support and services Asthenia 78655305 R53.1 plan for OTimpaired gait/weakn ess [place] 10 Asthma 003813547 J45.99 8 hxnot currently on medication smonitor for resp/clini aldair changes [id number] MIKE REYNOLDS [facility] [address] [place] [address] 07/26/2023 10:31:42 07/31/2023 15:13:33 Alcohol dependence 02092836 F10.288 there has been no seizure activity reported. hx seizures with withdrawal witnessed clonic tonic seizurestr eated with ativan and phenobarbi talencoura ged abstinence SUDs referralmo nitor for seizure activityco ntinue thiamine 100 mg qdfolate [address] 666 mg tid Bradycardia 72657174 R00 .1 HR 69Hx of syncope with implantabl e loop recorderSB in acute care with pausescard iology and EPS consulted- ILR interrogat ed, showed no correlatio n of syncope and pauses, no need for PPM. ILR removed.re commending PSG outpatient to r/o RAND- referral paced in [facility] Harmful pa ttern of use of cocaine 90692409 F14.10 refer to SUDsencour aged abstinence provide supportive services /refer to Homeless 80323692 Z59.00 long term care social worker for support and services Asthenia 71235348 R53.1 plan for OTimpaired gait/weakn ess10/11: he is ambulating with steady gait independen tly. Asthma 707716315 J45.99 8 hxnot currently on medication smonitor for resp/clini aldair changes [id number] MIKE REYNOLDS [facility] on [address] [place] [address] 08/01/2023 09:31:41 08/08/2023 09:26:07 Alcohol dependence 85158535 F10.288 there has been no seizure activity reported. hx seizures with withdrawal witnessed clonic tonic seizurestr eated with ativan and phenobarbi talencoura ged abstinence SUDs referralmo nitor for seizure activityco ntinue thiamine 100 mg qdfolate [address] 666 mg tid Bradycardia 88935744 R00 .1 HR 69Hx of syncope with implantabl e loop recorderSB in acute care with pausescard iology and EPS consulted- ILR interrogat ed, showed no correlatio n of syncope and pauses, no need for PPM. ILR removed.re commending PSG outpatient to r/o RAND- referral paced in [facility] Harmful pa ttern of use of cocaine 22308780 F14.10 refer to SUDsencour aged abstinence provide supportive services /refer to Homeless 60888651 Z59.00 long term care social worker for support and services Asthenia 17821727 R53.1 plan for OTimpaired gait/weakn ess07/26: he is ambulating with steady gait independen tly. Asthma 234186511 J45.99 8 hxnot currently on medication smonitor for resp/clini aldair changes [id number] MIEK REYNOLDS [facility] on [address] [place] [address] 08/04/2023 08:03:49 08/08/2023 11:32:51 Alcohol dependence 68171312 F10.288 08/04: there has been no seizure activity reported. hx seizures with withdrawal witnessed clonic tonic seizurestr eated with ativan and phenobarbi talencoura ged abstinence SUDs referralmo nitor for seizure activityco ntinue thiamine 100 mg qdfolate [address] 666 mg tid Bradycardia 04708468 R00 .1 HR 69Hx of syncope with implantabl e loop recorderSB in acute care with pausescard iology and EPS consulted- ILR interrogat ed, showed no correlatio n of syncope and pauses, no need for PPM. ILR removed.re commending PSG outpatient to r/o RAND- referral paced in [facility] Harmful pa ttern of use of cocaine 11350703 F14.10 refer to SUDsencour aged abstinence provide supportive services /refer to Homeless 38933382 Z59.00 long term care social worker for support and services Asthenia 22386227 R53.1 plan for OTimpaired gait/weakn ess/: he is ambulating with steady gait independen tly.08/04: meeting goals with therapy, independen t with care. Asthma 961872129 J45.99 8 hxnot currently on medication smonitor for resp/clini aldair changes [id number] MIKE REYNOLDS [facility] on [address] [place] [address] 08/10/2023 08:14:16 08/17/2023 15:56:48 Alcohol dependence 65391695 F10.288 hx seizures with withdrawal witnessed clonic tonic seizurestr eated with ativan and phenobarbi talencoura ged abstinence SUDs referralmo nitor for seizure activityco ntinue thiamine 100 mg qdfolate [address] 666 mg tid Bradycardia 72884086 R00 .1 Hx of syncope with implantabl e loop recorderSB in acute care with pausescard iology and EPS consulted- ILR interrogat ed, showed no correlatio n of syncope and pauses, no need for PPM. ILR removed.re commending PSG outpatient to r/o RAND- referral paced in [facility] Harmful pa ttern of use of cocaine 49381154 F14.10 refer to SUDsencour aged abstinence provide supportive services /refer to [facility] Homeless 02961165 Z59.00 long term care social worker for support and services Asthenia 79954245 R53.1 08/09/2023 : therapy goals met.He is independen t on on unit. Asthma 587334089 J45.99 8 hxnot currently on medication smonitor for resp/clini aldair changes [id number] MIKE REYNOLDS [facility] on [address] [place] [address] 08/16/2023 07:01:21 08/18/2023 08:46:19 Alcohol dependence 79522156 F10.288 08/16: There has been no reported seizurehx seizures with withdrawal witnessed clonic tonic seizurestr eated with ativan and phenobarbi talencoura ged abstinence SUDs referralmo nitor for seizure activityco ntinue thiamine 100 mg qdfolate [address] 666 mg tid Asthma 628645088 J45.99 8 08/16: Denies any shortness of breath or resp. issuesnot currently on medication smonitor for resp/clini aldair changes [id number] Dayana Jerezjimena Blanchard [facility] on [address] [place] [address] 08/25/2023 10:10:49 08/28/2023 11:33:00 Alcohol dependence 24369557 F10.288 08/16: There has been no reported seizurehx seizures with withdrawal witnessed clonic tonic seizurestr eated with ativan and phenobarbi talencoura ged abstinence SUDs referralmo nitor for seizure activityco ntinue thiamine 100 mg qdfolate [address] 666 mg tid Asthma 219171080 J45.99 8 08/16: Denies any shortness of breath or resp. issuesnot currently on medication smonitor for resp/clini aldair changes Harmful pa ttern of use of cocaine 69547616 F14.10 follow up with outpatient carehas not used during SNF stay Homeless 35200384 Z59.00 discharge to custodial Sinus bradycardia 634776 05 R00.1 resolved, HR 78 today Laboratory test result abnormal 847256515 R89.9 resolved, follow up with outpt PCP next week Health Concerns Section Related Observation LastModified by Organization Detai ls LastModified Time None Recorded Concern Status LastModified by Organization Details LastModified Time None Recorded Advance Directives Directive Y: Payers Insurance Date Sequence Insurance Name Policy Number Policy Hobbs Covered Member ID Hobbs Member ID Guarantor Name 03/21/2024 1 [place] [facility] [id number] [facility] Notes Date Note Type Note [...] Evaluated by therapy for weakness, admitted to [facility] for continued care and rehab. On exam today he is stable, there is no acute nursing concerns. progressing toward therapy goals. MIKE REYNOLDS [address], [address], [place], [address], [facility] 08/01/2023 14:12:08 08/04/2023 text/html ROS as noted [...] Evaluated by therapy for weakness, admitted to [facility] for continued care and rehab. He continue to be medically stable, he has been working with therapy, as of note he has progressed to independent for adl no adaptive device required. On exam he noted ambulating on unit with steady gait, he tells me that he is ok, there is no acute nursing concerns. MIKE REYNOLDS [address], [address], [place], [address], [facility] [place] 08/04/2023 13:02:43 08/10/2023 text/html ROS as noted in the HPI Duarte is seen today for acute rounding visit. Past medical history of ETOH abuse with withdrawal seizures, cocaine abuse, asthma.He has been stable, he offers no complaints. There is no acute nursing concerns. MIKE REYNOLDS [address], [address], [place], [address], [facility] [employer] 08/10/2023 10:56:55 08/16/2023 text/html Duarte is seen today for routine rounding COACH WIRER 30 day visit. Past medical history of ETOH abuse with withdrawal seizures, cocaine abuse, asthma. Duarte is alert and verbal in NAD. He has been stable seen his last rounding visit, there is no complaints, there is no acute nursing concerns. MIKE REYNOLDS [address], [address], [place], [address], [facility] 08/16/2023 11:03:33 08/25/2023 text/html ROS as noted in the HPI Duarte is seen today for discharge. Past medical history of ETOH abuse with withdrawal seizures, cocaine abuse, asthma. Duarte is alert and verbal in NAD. He has been stable seen his last rounding visit, there is no complaints, there is no acute nursing concerns. Dayana valle [address], [address], [place], [address], [facility] 08/25/2023 10:26:05
--- OUTSIDE RECORDS SUMMARY | 2025-09-15 18:50 | XMS_ITS | Clinical Summary ---
Author Organization [facility] it Address [address] [place] [address] Care Team Providers Care Motors And Generators Inspector Name Role Phone Unavailable Primary Care Provider [...]
--- OUTSIDE RECORDS SUMMARY | 2025-09-15 18:50 | XMS_ITS | Encounter Summary ---
Author Organization [facility] Address [address] [place] [address] Phone Care Team Providers Care Manager Production Name Role Phone Ramin Arnold MD Primary Care Provider [phone] Encounter Details Date Type Department Care Team (Late st Contact Info) Description 05/21/2020 Transcribe Orders [facility] Specimen Processing [address] [place] [address] Ramin Arnold MD [address] [place] [address] [address] [place] [address] [email or web address] COVID-19 ruled out (Primary Dx) Social History [...] 5:36 PM EDT) Specimen Source NASOPHARYNGEAL SWAB (SCHOOL COMMUNITY RELATIONS COORDINATOR) [facility] COVID Testing Status Sent to [facility] Other 05/21/2020 5:36 PM EDT 05/21/2020 5:47 PM EDT us Ramin Arnold MD LAB GENERAL ORDERABLES Final Res ult [facility] [address] [place] [address] documented in this encounter Visit Diagnoses Diagnosis COVID-19 ruled out- Primary documented in this encounter Additional Health Concerns Infection Onset Date Last Indicated Resolved Time CoV-Exposed Comment:Recent close contact 05/21/2020 05/21/2020 06/04/2020 1:23 AM EDT CoV-Exposed Comment:Recent close contact 06/04/2020 06/04/2020 06/18/2020 1:24 AM EDT CoV-Exposed Comment:Recent close contact 08/26/2020 08/26/2020 09/09/2020 1:24 AM EST documented as of this encounter Care Teams Manager Production Relationship Specialty Start Date End Date Ramin Arnold MD [email or web address] PCP - General Family Medicine 05/19/20 documented as of this encounter Additional Source Comments The information contained in this document represents components of the legal health record. It is not the complete legal health record.[facility]
--- OUTSIDE RECORDS SUMMARY | 2025-09-15 18:50 | XMS_ITS | Encounter Summary ---
Author Organization [facility] Address [address] [place] [address] Phone Care Team Providers Care Mutual Funds Agent Name Role Phone Ramin Arnold MD Primary Care Provider [phone] Encounter Details Date Type Department Care Team (Late st Contact Info) Description 11/17/2024 Procedure Pass [facility] PERIOP DEPT [address] [place] [address] Social History Tobacco Use Types Packs/Day Years [...] on filedocumented in this encounter Care Teams Mutual Funds Agent Relationship Specialty Start Date End Date Ramin Arnold MD [email or web address] PCP - General Family Medicine 05/19/20 documented as of this encounter Additional Source Comments The information contained in this document represents components of the legal health record. It is not the complete legal health record.[facility]
--- OUTSIDE RECORDS SUMMARY | 2025-09-15 18:50 | XMS_ITS | Encounter Summary ---
Author Organization [facility] Address [address] [place] [address] Phone Care Team Providers Care Wire Roller Name Role Phone Ramin Arnold MD Primary Care Provider [phone] Encounter Details Date Type Department Care Team (Late st Contact Info) Description 11/16/2024 Ophth Exam [facility] Trauma [address] [place] [address] [place] [address] Laurence Coelho MD [address] [place] [id number] [email or web address] Social History Tobacco Use Types [...] 11/16/2024 5:00 PM Ju Hines RN * Ruby Suicide Severity Rating Scale (Screener/Recent Self-Report) Question [...] on filedocumented in this encounter Care Teams Wire Roller Relationship Specialty Start Date End Date Ramin Arnold MD [email or web address] PCP - General Family Medicine 05/19/20 documented as of this encounter Additional Source Comments The information contained in this document represents components of the legal health record. It is not the complete legal health record.[facility]
--- OUTSIDE RECORDS SUMMARY | 2025-09-15 18:50 | XMS_ITS | Encounter Summary ---
Author Organization [facility] Address [address] [place] [address] Phone Care Team Providers Care Conveyor Feeder Name Role Phone Ramin Arnold MD Primary Care Provider [phone] Encounter Details Date Type Department Care Team (Late st Contact Info) Description 11/19/2024 Ophth Exam AMANDA Oph Tra[facility] [place] [address] [place] [address] Laurence Coelho MD [address] [place] [phone] [email or web address] Social History [...] on filedocumented in this encounter Care Teams Conveyor Feeder Relationship Specialty Start Date End Date Ramin Arnold MD [email or web address] PCP - General Family Medicine 05/19/20 documented as of this encounter Additional Source Comments The information contained in this document represents components of the legal health record. It is not the complete legal health record.[facility]
[2025-09-16 00:51] VITALS: BP 108/58; PULSE 75; RESP 16; TEMP 36.7; O2SAT 94
[2025-09-16 04:55] VITALS: BP 110/69; PULSE 73; RESP 16; TEMP 37.2; O2SAT 96
[2025-09-16 07:00] VITALS: BP 125/79; PULSE 73; RESP 14; TEMP -17.7; TEMP 0; O2SAT 97
== END 2025-09-16 07:13 | disposition home or self-care (01) ==
PROVIDERS: Emergency Medicine Emergency Medical Services; Emergency Provider Emergency Medicine
DX: F10.129 Alcohol abuse with intoxication, unspecified (principal); Y90.8 Blood alcohol level of 240 mg/100 ml or more; Z59.02 Unsheltered homelessness; Z91.013 Allergy to seafood
CPT/HCPCS: 36415; 80048; 80307; 83735; 85025; 96360; 96361; 99285

== ENCOUNTER 2025-09-16 19:22 | Emergency (ER) | payer MEDICAID, SELFPAY ==
[2025-09-16 19:28] VITALS: BP 150/102; PULSE 88; O2SAT 98
[2025-09-16 19:30] VITALS: BMI 22.6
--- OUTSIDE RECORDS SUMMARY | 2025-09-16 19:46 | XMS_ITS | Clinical Summary ---
Author Organization [facility] it Address [address] [place] [address] Care Team Providers Care Java Tech Lead Name Role Phone Unavailable Primary Care Provider [...]
--- OUTSIDE RECORDS SUMMARY | 2025-09-16 19:47 | XMS_ITS | Data Portability ---
Author Organization [facility], Main Office Address [address] [place] [address] Care Team Providers Care Park Guard Name Role Phone [facility] OTHER Assessment Encounter Date [...] Address Organization Details Recorded Time Alcohol dependence 63133730 Active 2019 Riri harman, [facility] 0 10:55:15 Alcohol dependence 99266245 Active 2019 Riri Espinal null, [facility] 0 10:55:21 Sinus bradycardia 65997871 Active 2019 Riri harman, [facility] 0 10:55:22 Asthma 846421677 Active 2019 Riri harman, [facility] [employer] [facility] 0 10:55:25 Harmful pattern of use of cocaine 37971343 Active 2022 JESSICA HALEY, [employer] [address], [address], [place], [address], [facility] [employer] [facility] 3 17:51:39 Homeless 34035724 Active 2022 JESSICA HALEY, [employer] [address], [address], [place], [address], [facility] [employer] [facility] 3 18:07:02 Asthenia 65061979 Active 2022 JESSICA HALEY, [facility] [address], [place], [address], [facility] [employer] [facility] 3 18:07:05 Bradycardia 25151533 Active 2022 JESSICA HALEY, [facility] [address] [facility] [facility], [address], [place], [address], [facility] 3 18:07:11 Laboratory test result abnormal 184980273 Active 2022 JESSICA HALEY, [employer] [address], [place], [address], [facility] 3 18:07:15 Problem Notes None recorded. Medical Equipment None Reported. Allergies Allergen ID Allergen Name Allergen Category Reaction Reaction Severity Criticality Documentation Date Start Date Code Code System Note Provider Name and Address Organization Details Recorded Time 72250 shellfish derived food,medi cation Not available Not available Not available 05/19/2020 Riri harman, [facility] [employer] [facility] 0 08:43:01 Medications Not known to be on any medication Vitals Date Recorded Heart rate Respiratory rate Body temperature Oxygen saturation Systolic And Diastolic Provider Name and Address Organization Details Last Updated DateTime 3 78 /min 18 /min 97.4 [degF] 99 % 115/67 mm[Hg] Dayana Sarmiento -Kierkla [address], [address], [place], [address], [facility] 3 10:21:31 Social History Question Answer Notes LastModified by Organizat ion Details LastModified Time Tobacco Smoking Status Current Every Day Smoker 2 a day MIKE REYNOLDS [address] [facility] [facility], [address], [place], [address], [facility] 07/19/2023 17:16:49 Do You Have An Advance Directive? Yes Information not available 07/19/2023 What Is Your Code Status? Full Code Information not available 07/19/2023 Which Illicit Or Recreational Drugs Have You Used? Crack Cocaine Information not available 07/19/2023 Where Do You Live? Other Homeless Information not available 07/19/2023 Legal Guardian? No Informati on not available 07/19/2023 Do You Have A Medical Power Of Electrical Development Engineer? No Information not available 07/19/2023 What Was [...] anxious, or unable to sleep at night)? [id number] Information not available 07/19/2023 Family History Relationship [...] 25mcg/0.25 mL dose 2 completed Nicole harman [facility] 10/17/2023 11:43:55 [facility]dap 2 [facility] 14:21:00 Td (adult), 5 Lf tetanus toxoid, preservative free, adsorbed 7 completed Nicole harman [facility] 01/22/2024 14:21:20 Td (adult), 5 Lf tetanus toxoid, preservative free, adsorbed 8 completed Nicole harman [facility] 01/22/2024 14:21:35 pneumococcal polysaccharide PPV23 8 completed Nicole harman [facility] 01/22/2024 14:21:54 pneumococcal polysaccharide PPV23 6 completed Nicole harman [facility] 01/22/2024 14:22:04 Influenza, adjuvanted, quadrivalent, PF 3 completed Nicole harman [place] - [facility] 01/22/2024 14:23:02 Past Encounters Encounter ID Performer Location Encounter Start Date Encounter Closed Date Diagnosis/Indication Diagnosis SNOMED-CT Code Diagnosis ICD10 Code Diagnosis IMO Codes Diagnosis Note [id number] MIKE Chen [facility] on [address] [place] [address] 05/19/2020 08:42:26 05/29/2020 13:18:57 Alcohol dependence 93976378 F10.288 Hx of withdrawal seizuresFo lic acid 1 mg dailyThiam ine 100 mg dailyPT OT eval and treat Sinus bradycardia 699443 05 R00.1 Implanted cardiac nurse practitioner in placeF/u with cardiology Monitor HR Asthma 696138395 J45.99 8 Monitor respirator y status Liver enzy mes level above reference range 749237364 R74.8 Secondary to heavy ETOH useRepeat and monitor [id number] Lois Multani MD [facility] on [address] [place] [address] 05/20/2020 07:06:00 05/29/2020 14:50:19 Alcohol dependence 69438733 F10.20 thiamine 100 mg dailyfolic acid 1 mg dailysocia l work fu to encourage ongoing support and treatment Asthenia 00197346 R53.1 PT/OTwill monitor Liver enzy mes level above reference range 740625314 R74.8 will monitor Sinus bradycardia 719843 05 R00.1 resolvedwi ll monitor [id number] MIKE Chen [facility] on [address] [place] [address] 05/26/2020 09:30:59 05/29/2020 13:59:21 Alcohol dependence 13565322 F10.288 Hx of withdrawal seizuresFo lic acid 1 mg dailyThiam ine 100 mg dailyNo sxs of withdrawal noted Sinus bradycardia 107024 05 R00.1 Implanted cardiac nurse practitioner in placeF/u with cardiology Monitor HR-ranges 58-88 Asthma 482566912 J45.99 8 Monitor respirator y statusOn no medication s [id number] MIKE Chen [facility] on [address] [place] [address] 06/12/2020 08:31:05 06/16/2020 10:01:54 Alcohol dependence 21900991 F10.288 Hx of withdrawal seizuresFo lic acid 1 mg dailyThiam ine 100 mg dailyNo signs of withdrawal currently Sinus bradycardia 456880 05 R00.1 Implanted cardiac nurse practitioner in placeF/u with cardiology Monitor HR Asthma 809687806 J45.99 8 Monitor respirator y status Liver enzy mes level above reference range 451760019 R74.8 Secondary to heavy ETOH useRepeat LFTs 06/15 [id number] Riri Espinal [facility] on [address] [place] [address] 06/16/2020 11:47:30 06/18/2020 11:34:00 Alcohol dependence 99878731 F10.288 Hx of withdrawal seizuresFo lic acid 1 mg dailyThiam ine 100 mg dailyNo signs of withdrawal Encouraged to remain sober Sinus bradycardia 962272 05 R00.1 Implanted cardiac nurse practitioner in placeRemai ns asymptomat ic F/u with cardiology Asthma 614042173 J45.99 8 No respirator y issues currentlyF /u with PCP Liver enzy mes level above reference range 025329365 R74.8 Secondary to heavy ETOH useNow resolved [id number] JESSICA HALEY [facility] on [address] [place] [address] 07/19/2023 15:26:02 07/27/2023 10:51:11 Laboratory test result abnormal 645332894 R89.9 In acute care rhabdo, hypokalemi a, transamini tis, hypomagnes emia , thrombocyt openia, normocytic , metabolic acidosis , normocytic anemia likely related to etoh abuse,,tx with IVF and supplement al replacemen tmonitor labs Alcohol dependence 86151 003 F10.288 hx seizures with withdrawal witnessed clonic tonic seizurestr eated with ativan and phenobarbi talencoura ged abstinence SUDs referralmo nitor for seizure activityco ntinue thiamine 100 mg qdfolate [address] 666 mg tid Bradycardia 79123707 R00 .1 Hx of syncope with implantabl e loop recorderSB in acute care with pausescard iology and EPS consulted- ILR interrogat ed, showed no correlatio n of syncope and pauses, no need for PPM. ILR removed.re commending PSG outpatient to r/o RAND- referral paced in [facility] Harmful pa ttern of use of cocaine 47455282 F14.10 refer to SUDsencour aged abstinence provide supportive services /refer to [facility] Homeless 19282806 Z59.00 renal social worker for support and services Asthenia 31172339 R53.1 impaired gait/weakn essPT/OT evalMorse 10 Asthma 175050294 J45.99 8 hxnot currently on medication smonitor for resp/clini aldair changes [id number] Lois Multani MD [facility] on [address] [place] [address] 07/21/2023 05:52:30 07/27/2023 11:40:25 Asthenia 23966065 R53.1 PT/OTwill monitor Alcohol dependence 43936 003 F10.288 thiamine 100 mg dailyfolic acid 1 mg dailyacamp rosate 666 mg tldsocial work fu to encourage ongoing support and treatment Bradycardia 86441872 R00 .1 not associated with syncopewil l monitor History of seizure due to alcohol withdrawal 1863854776 24586 Z86.69 completed withdrawal protocolwi ll monitor [id number] MIKE REYNOLDS [facility] on [address] [place] [address] 07/24/2023 09:10:19 07/31/2023 15:03:51 Alcohol dependence 84498961 F10.288 there has been no seizure activity reported. hx seizures with withdrawal witnessed clonic tonic seizurestr eated with ativan and phenobarbi talencoura ged abstinence SUDs referralmo nitor for seizure activityco ntinue thiamine 100 mg qdfolate [address] 666 mg tid Laboratory test result abnormal 358065546 R89.9 In acute care rhabdo, hypokalemi a, transamini tis, hypomagnes emia , thrombocyt openia, normocytic , metabolic acidosis , normocytic anemia likely related to etoh abuse,,tx with IVF and supplement al replacemen tmonitor labs Bradycardia 62385042 R00 .1 denies any cardiac sx today. apical rate 70 Hx of syncope with implantabl e loop recorderSB in acute care with pausescard iology and EPS consulted- ILR interrogat ed, showed no correlatio n of syncope and pauses, no need for PPM. ILR removed.re commending PSG outpatient to r/o RAND- referral paced in [facility] Harmful pa ttern of use of cocaine 11667843 F14.10 refer to SUDsencour aged abstinence provide supportive services /refer to Homeless 86009891 Z59.00 renal social worker for support and services Asthenia 39163522 R53.1 plan for OTimpaired gait/weakn ess Pineda 10 Asthma 783985417 J45.99 8 hxnot currently on medication smonitor for resp/clini aldair changes [id number] MIKE REYNOLDS [facility] on [address] [place] [address] 07/26/2023 10:31:42 07/31/2023 15:13:33 Alcohol dependence 83929382 F10.288 there has been no seizure activity reported. hx seizures with withdrawal witnessed clonic tonic seizurestr eated with ativan and phenobarbi talencoura ged abstinence SUDs referralmo nitor for seizure activityco ntinue thiamine 100 mg qdfolate [address] 666 mg tid Bradycardia 21780368 R00 .1 HR 69Hx of syncope with implantabl e loop recorderSB in acute care with pausescard iology and EPS consulted- ILR interrogat ed, showed no correlatio n of syncope and pauses, no need for PPM. ILR removed.re commending PSG outpatient to r/o RAND- referral paced in [facility] Harmful pa ttern of use of cocaine 49007438 F14.10 refer to SUDsencour aged abstinence provide supportive services /refer to Homeless 55587023 Z59.00 renal social worker for support and services Asthenia 00929067 R53.1 plan for OTimpaired gait/weakn ess10/11: he is ambulating with steady gait independen tly. Asthma 978575688 J45.99 8 hxnot currently on medication smonitor for resp/clini aldair changes [id number] MIKE REYNOLDS [facility] on [address] [place] [phone] 08/01/2023 09:31:41 08/08/2023 09:26:07 Alcohol dependence 96818668 F10.288 there has been no seizure activity reported. hx seizures with withdrawal witnessed clonic tonic seizurestr eated with ativan and phenobarbi talencoura ged abstinence SUDs referralmo nitor for seizure activityco ntinue thiamine 100 mg qdfolate [address] 666 mg tid Bradycardia 74033360 R00 .1 HR 69Hx of syncope with implantabl e loop recorderSB in acute care with pausescard iology and EPS consulted- ILR interrogat ed, showed no correlatio n of syncope and pauses, no need for PPM. ILR removed.re commending PSG outpatient to r/o RAND- referral paced in [facility] Harmful pa ttern of use of cocaine 06811948 F14.10 refer to SUDsencour aged abstinence provide supportive services /refer to Homeless 35090185 Z59.00 renal social worker for support and services Asthenia 87710800 R53.1 plan for OTimpaired gait/weakn ess07/26: he is ambulating with steady gait independen tly. Asthma 982997066 J45.99 8 hxnot currently on medication smonitor for resp/clini aldair changes [id number] MIKE REYNOLDS [facility] on [address] [place] [address] 08/04/2023 08:03:49 08/08/2023 11:32:51 Alcohol dependence 99482791 F10.288 08/04: there has been no seizure activity reported. hx seizures with withdrawal witnessed clonic tonic seizurestr eated with ativan and phenobarbi talencoura ged abstinence SUDs referralmo nitor for seizure activityco ntinue thiamine 100 mg qdfolate [address] 666 mg tid Bradycardia 60125768 R00 .1 HR 69Hx of syncope with implantabl e loop recorderSB in acute care with pausescard iology and EPS consulted- ILR interrogat ed, showed no correlatio n of syncope and pauses, no need for PPM. ILR removed.re commending PSG outpatient to r/o RAND- referral paced in [facility] Harmful pa ttern of use of cocaine 27293399 F14.10 refer to SUDsencour aged abstinence provide supportive services /refer to Homeless 28110578 Z59.00 renal social worker for support and services Asthenia 83643176 R53.1 plan for OTimpaired gait/weakn ess/: he is ambulating with steady gait independen tly.08/04: meeting goals with therapy, independen t with care. Asthma 329396897 J45.99 8 hxnot currently on medication smonitor for resp/clini aldair changes [id number] MIKE REYNOLDS [facility] on [address] [place] [address] 08/10/2023 08:14:16 08/17/2023 15:56:48 Alcohol dependence 86320842 F10.288 hx seizures with withdrawal witnessed clonic tonic seizurestr eated with ativan and phenobarbi talencoura ged abstinence SUDs referralmo nitor for seizure activityco ntinue thiamine 100 mg qdfolate [address] 666 mg tid Bradycardia 69280776 R00 .1 Hx of syncope with implantabl e loop recorderSB in acute care with pausescard iology and EPS consulted- ILR interrogat ed, showed no correlatio n of syncope and pauses, no need for PPM. ILR removed.re commending PSG outpatient to r/o RAND- referral paced in [facility] Harmful pa ttern of use of cocaine 58650552 F14.10 refer to SUDsencour aged abstinence provide supportive services /refer to [facility] Homeless 82429097 Z59.00 renal social worker for support and services Asthenia 44469071 R53.1 08/09/2023 : therapy goals met.He is independen t on on unit. Asthma 347402180 J45.99 8 hxnot currently on medication smonitor for resp/clini aldair changes [id number] MIKE REYNOLDS [facility] on [address] [place] [address] 08/16/2023 07:01:21 08/18/2023 08:46:19 Alcohol dependence 42363758 F10.288 08/16: There has been no reported seizurehx seizures with withdrawal witnessed clonic tonic seizurestr eated with ativan and phenobarbi talencoura ged abstinence SUDs referralmo nitor for seizure activityco ntinue thiamine 100 mg qdfolate [address] 666 mg tid Asthma 943224178 J45.99 8 08/16: Denies any shortness of breath or resp. issuesnot currently on medication smonitor for resp/clini aldair changes [id number] Dayana Jerezjimena Blanchard [facility] on [address] [place] [address] 08/25/2023 10:10:49 08/28/2023 11:33:00 Alcohol dependence 11875776 F10.288 08/16: There has been no reported seizurehx seizures with withdrawal witnessed clonic tonic seizurestr eated with ativan and phenobarbi talencoura ged abstinence SUDs referralmo nitor for seizure activityco ntinue thiamine 100 mg qdfolate [address] 666 mg tid Asthma 626804271 J45.99 8 08/16: Denies any shortness of breath or resp. issuesnot currently on medication smonitor for resp/clini aldair changes Harmful pa ttern of use of cocaine 41108110 F14.10 follow up with outpatient carehas not used during SNF stay Homeless 31462115 Z59.00 discharge to senior living Sinus bradycardia 920327 05 R00.1 resolved, HR 78 today Laboratory test result abnormal 292231876 R89.9 resolved, follow up with outpt PCP next week Health Concerns Section Related Observation LastModified by Organization Detai ls LastModified Time None Recorded Concern Status LastModified by Organization Details LastModified Time None Recorded Advance Directives Directive Y: Payers Insurance Date Sequence Insurance Name Policy Number Policy Hobbs Covered Member ID Hobbs Member ID Guarantor Name 03/21/2024 1 [place] [facility] [id number] [facility] Notes Date Note Type Note Provider Name and Address Organization Details Recorded Time 08/01/2023 text/html ROS as noted in the HPI Seen today for acute rounding visit. Past medical history remarkable for alcohol abuse dependency with withdrawal seizures, syncope with implantable loop recorder in place. Presented to [facility] ED on 07/08/23 from outside source with both unwitnessed and witnessed seizure; on arrival to ED he had another witnessed tonic clonic seizure associated with post ictal. He was treated with IV ativan and started on phenobarbital protocol. He was admitted for ETOH withdrawal, Rhabdo and and found to have sinus pauses. Evaluated by therapy for weakness, admitted to [facility] for continued care and rehab. On exam today he is stable, there is no acute nursing concerns. progressing toward therapy goals. MIKE REYNOLDS [address] [facility] [facility], [address], [place], [address], [facility] 08/01/2023 14:12:08 08/04/2023 text/html ROS as noted in the HPI Seen today for acute rounding visit. Past medical history remarkable for alcohol abuse dependency with withdrawal seizures, syncope with implantable loop recorder in place. Presented to [facility] ED on 07/08/23 from outside source with both unwitnessed and witnessed seizure; on arrival to ED he had another witnessed tonic clonic seizure associated with post ictal. He was treated with IV ativan and started on phenobarbital protocol. He was admitted for ETOH withdrawal, Rhabdo and and found to have sinus pauses. Evaluated by therapy for weakness, admitted to [facility] for continued care and rehab. He continue to be medically stable, he has been working with therapy, as of note he has progressed to independent for adl no adaptive device required. On exam he noted ambulating on unit with steady gait, he tells me that he is ok, there is no acute nursing concerns. MIKE REYNOLDS [address] [facility], [address], [place], [address], [facility] [employer]termolecular [facility] 08/04/2023 13:02:43 08/10/2023 text/html ROS as noted in the HPI Duarte is seen today for acute rounding visit. Past medical history of ETOH abuse with withdrawal seizures, cocaine abuse, asthma.He has been stable, he offers no complaints. There is no acute nursing concerns. MIKE REYNOLDS [address] 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 Past medical history of ETOH abuse with withdrawal seizures, cocaine abuse, asthma. Duarte is alert and verbal in NAD. He has been stable seen his last rounding visit, there is no complaints, there is no acute nursing concerns. MIKE REYNOLDS [address] [facility], [address], [place], [address], [facility] 08/16/2023 11:03:33 08/25/2023 text/html ROS as noted in the HPI Duarte is seen today for discharge. Past medical history of ETOH abuse with withdrawal seizures, cocaine abuse, asthma. Duarte is alert and verbal in NAD. He has been stable seen his last rounding visit, there is no complaints, there is no acute nursing concerns. Dayana valle [address] [facility], [address], [place], [address], [facility] 08/25/2023 10:26:05
[2025-09-16 20:05] VITALS: BP 112/68; PULSE 79; RESP 18; TEMP 36.6; O2SAT 94
[2025-09-16 20:42] LABS: MANUAL DIFF FLAG NO
[2025-09-16 20:50] LABS: Hematocrit 35.4 % (42.0-52.0); Hemoglobin 11.5 g/dl (14.0-18.0); Imm Gran Abs Auto 0.03 X10*3/uL (0.00-0.03); Imm Gran Pct Auto 0.8 % (0.0-0.4); Lymphocytes Absolute Auto 1.3 X10*3/uL (1.2-4.9); Mean Corpuscular HGB Conc 32.5 g/dl (31.0-36.0); Mean Corpuscular Hemoglobin 31.5 pg (27.0-33.0); Mean Corpuscular Volume 97.0 fL (80.0-98.0); NRBC Abs Auto 0.000 X10*3/uL (0.0-0.012); NRBC Pct Auto 0.0 /100WBC (0.0-0.2); Platelet Count 234 X10*3/uL (160-400); Red Blood Count 3.65 X10*6/uL (4.60-5.80); White Blood Count 3.7 X10*3/uL (4.8-10.8)
[2025-09-16 20:59] LABS: Alanine Aminotransferase 102 U/L (0-40); Albumin Level 4.1 g/dL (3.5-5.0); Alkaline Phosphatase 97 U/L (39-117); Anion Gap 16 (12-20); Aspartate Amino Transferase 230 U/L (5-37); Blood Urea Nitrogen 7 mg/dL (9-16); Calcium 8.6 mg/dL (8.4-10.2); Carbon Dioxide 27 mmol/L (22-29); Chloride 110 mmol/L (96-108); Creatinine Clr Calc Pharmacy 116.0; Estimated Glomerular Filt Rate > 60; Potassium 3.3 mmol/L (3.3-5.1); Sodium 150 mmol/L (135-145); Total Protein 8.2 g/dL (6.5-8.0)
--- NOTE | 2025-09-16 21:07 | PC.NURSE ---
late entry- pt wilmer spence the street, a&ox3 respirations even and unlabored, pt reports vauge si/hi and states he is always . pt reports some etoh use but is not willing to answer man questions at this time. pt taken into family room with security and tech and changed over. sitter placed on pt.
--- NOTE | 2025-09-16 22:43 | PC.NURSE ---
Patient ambulated to ED BH Pod, escorted by security at this time. Per security, patient had large amount of personal belongings, belongings were placed in 'decon' room. Was changed over in ED prior to arrival. Calm/cooperative. Verbal/phone report received from Chanelle Wong RN.
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
--- NOTE | 2025-09-16 23:34 | PC.NURSE ---
Took over care from STEFFANY Novak, pt sleeping at this time.
--- NOTE | 2025-09-17 02:23 | PC.NURSE ---
pt oob to bathroom, ua collected and water given.
[2025-09-17 02:32] LABS: Appearance Urine Clear; Glucose Urine UA Negative (Negative); PH 6.0 (5.0-9.0); Specific Gravity - Urine 1.015 (1.005-1.025)
[2025-09-17 02:41] LABS: Cannabinoid Screen Urine Not Detected (Not Detect)
[2025-09-17 06:32] VITALS: RESP 16
[2025-09-17 07:46] VITALS: BP 134/88; PULSE 74; RESP 14; TEMP 36.9; O2SAT 99
--- NOTE | 2025-09-17 09:43 | PC.NURSE ---
Patient requested to be discharged. Patient took a shower and ate breakfast. Patient denies SI at this time. Care Team met with patient. Plan to discharge.
[2025-09-17 10:17] VITALS: BP 134/88; PULSE 74; RESP 14; TEMP 36.9; O2SAT 99
== END 2025-09-17 10:55 | disposition home or self-care (01) ==
PROVIDERS: Physician Assistant Medical; Emergency Provider Emergency Medicine
DX: F10.129 Alcohol abuse with intoxication, unspecified (principal); Y90.8 Blood alcohol level of 240 mg/100 ml or more; J45.909 Unspecified asthma, uncomplicated; Z87.891 Personal history of nicotine dependence
CPT/HCPCS: 36415; 80053; 80307; 81003; 85025; 99285; S9485

== ENCOUNTER 2025-09-20 18:13 | Emergency (ER) | payer MEDICAID, SELFPAY ==
[2025-09-20 18:19] VITALS: BP 160/90; PULSE 88; O2SAT 98
[2025-09-20 18:25] VITALS: BP 136/87; PULSE 67; RESP 16; TEMP 36.6; O2SAT 98; BMI 25.8
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
[2025-09-20 18:29] VITALS: BP 136/87; PULSE 67; RESP 16; TEMP 36.6; O2SAT 98
[2025-09-20 18:55] LABS: Hematocrit 36.3 % (42.0-52.0); Hemoglobin 11.8 g/dl (14.0-18.0); Imm Gran Abs Auto 0.01 X10*3/uL (0.00-0.03); Imm Gran Pct Auto 0.2 % (0.0-0.4); Lymphocytes Absolute Auto 1.9 X10*3/uL (1.2-4.9); MANUAL DIFF FLAG NO; Mean Corpuscular HGB Conc 32.5 g/dl (31.0-36.0); Mean Corpuscular Hemoglobin 32.0 pg (27.0-33.0); Mean Corpuscular Volume 98.4 fL (80.0-98.0); NRBC Abs Auto 0.000 X10*3/uL (0.0-0.012); NRBC Pct Auto 0.0 /100WBC (0.0-0.2); Platelet Count 187 X10*3/uL (160-400); Red Blood Count 3.69 X10*6/uL (4.60-5.80); White Blood Count 4.6 X10*3/uL (4.8-10.8)
[2025-09-20 19:06] LABS: Anion Gap 16 (12-20); Blood Urea Nitrogen 6 mg/dL (9-16); Calcium 8.7 mg/dL (8.4-10.2); Carbon Dioxide 27 mmol/L (22-29); Chloride 111 mmol/L (96-108); Creatinine Clr Calc Pharmacy 158.3; Estimated Glomerular Filt Rate > 60; Potassium 3.6 mmol/L (3.3-5.1); Sodium 150 mmol/L (135-145)
[2025-09-20 20:00] VITALS: BP 93/51; PULSE 77; RESP 16; TEMP 36.6; O2SAT 98
--- OUTSIDE RECORDS SUMMARY | 2025-09-20 20:32 | XMS_ITS | Encounter Summary ---
Author Organization [facility] Address [address] [place] [address] Phone Care Team Providers Care Dredging Inspector Name Role Phone Ramin Arnold MD Primary Care Provider [phone] Encounter Details Date Type Department Care Team (Late st Contact Info) Description 11/17/2024 Procedure Pass [facility] 6TH FL PERIOP DEPT [address] [place] [address] Social History Tobacco Use Types Packs/Day Years [...] on filedocumented in this encounter Care Teams Dredging Inspector Relationship Specialty Start Date End Date Ramin Arnold MD [email or web address] PCP - General Family Medicine 05/19/20 documented as of this encounter Additional Source Comments The information contained in this document represents components of the legal health record. It is not the complete legal health record.[facility]
--- OUTSIDE RECORDS SUMMARY | 2025-09-20 20:32 | XMS_ITS | Encounter Summary ---
Author Organization [facility] Address [address] [place] [address] Phone Care Team Providers Care Bioinformatics Support Specialist Name Role Phone Ramin Arnold MD Primary Care Provider [phone] Encounter Details Date Type Department Care Team (Late st Contact Info) Description 11/19/2024 Ophth Exam [facility] Oph Trauma Main [place] [address] [place] [address] Laurence Coelho MD [address] [place] [phone] [email or web address] Social History Tobacco Use Types Packs/Day [...] on filedocumented in this encounter Care Teams Bioinformatics Support Specialist Relationship Specialty Start Date End Date Ramin Arnold MD [email or web address] PCP - General Family Medicine 05/19/20 documented as of this encounter Additional Source Comments The information contained in this document represents components of the legal health record. It is not the complete legal health record.[facility]
--- OUTSIDE RECORDS SUMMARY | 2025-09-20 20:32 | XMS_ITS | Encounter Summary ---
Author Organization [facility] Address [address] [place] [address] Phone Care Team Providers Care Cuff Matcher Name Role Phone Ramin Arnold MD Primary Care Provider [phone] Encounter Details Date Type Department Care Team (Late st Contact Info) Description 11/16/2024 Ophth Exam [facility] Oph Trauma Main [place] [address] [place] [address] Laurence Coelho MD [address] [place] [id number] [email or web address] Social History Tobacco Use Types [...] 11/16/2024 5:00 PM Ju Hines RN * [place] Suicide Severity Rating Scale (Screener/Recent Self-Report) Question [...] on filedocumented in this encounter Care Teams Cuff Matcher Relationship Specialty Start Date End Date Ramin Arnold MD [email or web address] PCP - General Family Medicine 05/19/20 documented as of this encounter Additional Source Comments The information contained in this document represents components of the legal health record. It is not the complete legal health record.[facility]
--- OUTSIDE RECORDS SUMMARY | 2025-09-20 20:32 | XMS_ITS | Clinical Summary ---
Author Organization [facility] Address [address] [place] [address] Phone Care Team Providers Care Textile Pin Worker Name Role Phone Ramin Arnold MD Primary Care Provider [phone] Allergies Active Allergy Reactions Criticality Noted Date [...] Advance Directives For more information, please contact: [phone] (9AM - 5PM Sil/[facility], Monday-Monday) * Full Code (Latest Code Status on File) Date Activated Date Inactivated Comments 11/16/2024 5:47 PM Question Answer Comments Code Status Confirmed With: Patient * Full Code Date Activated Date Inactivated Comments 11/16/2024 5:45 PM 11/16/2024 5:47 PM Question Answer Comments Code Status Confirmed With: Other (specify below ) Care Teams Textile Pin Worker Relationship Specialty Start Date End Date Ramin Arnold MD [email or web address] PCP - General Family Medicine 05/19/20 Additional Source Comments The information contained in this document represents components of the legal health record. It is not the complete legal health record.[facility]
--- OUTSIDE RECORDS SUMMARY | 2025-09-20 20:32 | XMS_ITS | Encounter Summary ---
Author Organization [facility] Address [address] [place] [address] Phone Care Team Providers Care Ordnance Technician Name Role Phone Ramin Arnold MD Primary Care Provider [phone] Encounter Details Date Type Department Care Team (Late st Contact Info) Description 11/16/2024 Procedure Pass [facility] [address] [place], [address] [place] [address] Social History Tobacco Use Types Packs/Day Years [...] 11/16/2024 5:00 PM Ju Hines RN * [place] Suicide Severity Rating Scale (Screener/Recent Self-Report) Question [...] on filedocumented in this encounter Care Teams Ordnance Technician Relationship Specialty Start Date End Date Ramin Arnold MD PCP - General Family Medicine 05/19/20 documented as of this encounter Additional Source Comments The information contained in this document represents components of the legal health record. It is not the complete legal health record.[facility]
--- OUTSIDE RECORDS SUMMARY | 2025-09-20 20:32 | XMS_ITS | Data Portability ---
Author Organization [facility], Main Office Address [address] [place] [address] Care Team Providers Care Environmental Laboratory Technician Name Role Phone [facility] OTHER Assessment Encounter Date [...] Address Organization Details Recorded Time Alcohol dependence 52566617 Active 2019 Riri harman, [facility] 0 10:55:15 Alcohol dependence 22776897 Active 2019 Riri Espinal null, [facility] 0 10:55:21 Sinus bradycardia 64461667 Active 2019 Riri harman, [facility] 0 10:55:22 Asthma 237566536 Active 2019 Riri harman, [facility] [employer] [facility] 0 10:55:25 Harmful pattern of use of cocaine 43300180 Active 2022 JESSICA HALEY, [employer] [address], [address], [place], [address], [facility] [employer] [facility] 3 17:51:39 Homeless 29183946 Active 2022 JESSICA HALEY, [employer] [address], [address], [place], [address], [facility] [employer] [facility] 3 18:07:02 Asthenia 88843748 Active 2022 JESSICA HALEY, [facility] [address], [place], [address], [facility] [employer] [facility] 3 18:07:05 Bradycardia 83331075 Active 2022 JESSICA HALEY, [facility] [address], [address], [place], [address], [facility] [employer] 3 18:07:11 Laboratory test result abnormal 748652856 Active 2022 JESSICA HALEY, [employer] [address], [place], [address], [facility] [employer] 3 18:07:15 Problem Notes None recorded. Medical Equipment None Reported. Allergies Allergen ID Allergen Name Allergen Category Reaction Reaction Severity Criticality Documentation Date Start Date Code Code System Note Provider Name and Address Organization Details Recorded Time 42608 shellfish derived food,medi cation Not available Not available Not available 05/19/2020 Riri harman, [facility] [employer] [facility] 0 08:43:01 Medications Not known to be on any medication Vitals Date Recorded Heart rate Respiratory rate Body temperature Oxygen saturation Systolic And Diastolic Provider Name and Address Organization Details Last Updated DateTime 3 78 /min 18 /min 97.4 [degF] 99 % 115/67 mm[Hg] Dayana Sarmiento -Kierkla [address], [address], [place], [address], [facility] [employer] 3 10:21:31 Social History Question Answer Notes LastModified by Organizat ion Details LastModified Time Tobacco Smoking Status Current Every Day Smoker 2 a day MIKE REYNOLDS [address], [address], [place], [address], [facility] 07/19/2023 17:16:49 Do You Have An Advance Directive? Yes Information not available 07/19/2023 What Is Your Code Status? Full Code Information not available 07/19/2023 Which Illicit Or Recreational Drugs Have You Used? Crack Cocaine Information not available 07/19/2023 Where Do You Live? Other Homeless Information not available 07/19/2023 Legal Guardian? No Informati on not available 07/19/2023 Do You Have A Medical Power Of Structural Steel Erector? No Information not available 07/19/2023 What Was [...] anxious, or unable to sleep at night)? [id number] Information not available 07/19/2023 Family History Relationship [...] completed Nicole harman [facility] 10/17/2023 11:43:55 [facility] 2 [facility] 14:21:00 Td (adult), 5 Lf tetanus toxoid, preservative free, adsorbed 7 completed Nicole harman [facility] 01/22/2024 14:21:20 Td (adult), 5 Lf tetanus toxoid, preservative free, adsorbed 8 completed Nicole harman [facility] 01/22/2024 14:21:35 pneumococcal polysaccharide PPV23 8 completed Nicole harman [facility] 01/22/2024 14:21:54 pneumococcal polysaccharide PPV23 6 completed Nicole harman [facility] 01/22/2024 14:22:04 Influenza, adjuvanted, quadrivalent, PF 3 completed Nicole harman [place] [facility] 01/22/2024 14:23:02 Past Encounters Encounter ID Performer Location Encounter Start Date Encounter Closed Date Diagnosis/Indication Diagnosis SNOMED-CT Code Diagnosis ICD10 Code Diagnosis IMO Codes Diagnosis Note [id number] MIKE Chen [facility] on [address] [place] [address] 05/19/2020 08:42:26 05/29/2020 13:18:57 Alcohol dependence 20352063 F10.288 Hx of withdrawal seizuresFo lic acid 1 mg dailyThiam ine 100 mg dailyPT OT eval and treat Sinus bradycardia 739884 05 R00.1 Implanted glass checker in placeF/u with cardiology Monitor HR Asthma 168725984 J45.99 8 Monitor respirator y status Liver enzy mes level above reference range 576694444 R74.8 Secondary to heavy ETOH useRepeat and monitor [id number] Lois Multani MD [facility] on [address] [place] [address] 05/20/2020 07:06:00 05/29/2020 14:50:19 Alcohol dependence 80667080 F10.20 thiamine 100 mg dailyfolic acid 1 mg dailysocia l work fu to encourage ongoing support and treatment Asthenia 81473921 R53.1 PT/OTwill monitor Liver enzy mes level above reference range 164556743 R74.8 will monitor Sinus bradycardia 735716 05 R00.1 resolvedwi ll monitor [id number] MIKE Chen [facility] on [address] [place] [address] 05/26/2020 09:30:59 05/29/2020 13:59:21 Alcohol dependence 68874020 F10.288 Hx of withdrawal seizuresFo lic acid 1 mg dailyThiam ine 100 mg dailyNo sxs of withdrawal noted Sinus bradycardia 806660 05 R00.1 Implanted glass checker in placeF/u with cardiology Monitor HR-ranges 58-88 Asthma 368256993 J45.99 8 Monitor respirator y statusOn no medication s [id number] MIKE Chen [facility] on [address] [place] [address] 06/12/2020 08:31:05 06/16/2020 10:01:54 Alcohol dependence 30830358 F10.288 Hx of withdrawal seizuresFo lic acid 1 mg dailyThiam ine 100 mg dailyNo signs of withdrawal currently Sinus bradycardia 336820 05 R00.1 Implanted glass checker in placeF/u with cardiology Monitor HR Asthma 225722999 J45.99 8 Monitor respirator y status Liver enzy mes level above reference range 459614240 R74.8 Secondary to heavy ETOH useRepeat LFTs 06/15 [id number] Riri Espinal [facility] on [address] [place] [address] 06/16/2020 11:47:30 06/18/2020 11:34:00 Alcohol dependence 81912876 F10.288 Hx of withdrawal seizuresFo lic acid 1 mg dailyThiam ine 100 mg dailyNo signs of withdrawal Encouraged to remain sober Sinus bradycardia 565462 05 R00.1 Implanted glass checker in placeRemai ns asymptomat ic F/u with cardiology Asthma 013809230 J45.99 8 No respirator y issues currentlyF /u with PCP Liver enzy mes level above reference range 512542687 R74.8 Secondary to heavy ETOH useNow resolved [id number] JESSICA HALEY [facility] on [address] [place] [address] 07/19/2023 15:26:02 07/27/2023 10:51:11 Laboratory test result abnormal 943940966 R89.9 In acute care rhabdo, hypokalemi a, transamini tis, hypomagnes emia , thrombocyt openia, normocytic , metabolic acidosis , normocytic anemia likely related to etoh abuse,,tx with IVF and supplement al replacemen tmonitor labs Alcohol dependence 61585 003 F10.288 hx seizures with withdrawal witnessed clonic tonic seizurestr eated with ativan and phenobarbi talencoura ged abstinence SUDs referralmo nitor for seizure activityco ntinue thiamine 100 mg qdfolate [address] 666 mg tid Bradycardia 52495661 R00 .1 Hx of syncope with implantabl e loop recorderSB in acute care with pausescard iology and EPS consulted- ILR interrogat ed, showed no correlatio n of syncope and pauses, no need for PPM. ILR removed.re commending PSG outpatient to r/o RAND- referral paced in [facility] Harmful pa ttern of use of cocaine 75108857 F14.10 refer to SUDsencour aged abstinence provide supportive services /refer to [facility] Homeless 79927554 Z59.00 marriage and family social worker for support and services Asthenia 44804412 R53.1 impaired gait/weakn essPT/OT evalMorse 10 Asthma 506914035 J45.99 8 hxnot currently on medication smonitor for resp/clini aldair changes [id number] Lois Multani MD [facility] on [address] [place] [phone] 07/21/2023 05:52:30 07/27/2023 11:40:25 Asthenia 13642624 R53.1 PT/OTwill monitor Alcohol dependence 91677 003 F10.288 thiamine 100 mg dailyfolic acid 1 mg dailyacamp rosate 666 mg tldsocial work fu to encourage ongoing support and treatment Bradycardia 23804800 R00 .1 not associated with syncopewil l monitor History of seizure due to alcohol withdrawal 7178784996 04208 Z86.69 completed withdrawal protocolwi ll monitor [id number] MIKE REYNOLDS [facility] on [address] [place] [address] 07/24/2023 09:10:19 07/31/2023 15:03:51 Alcohol dependence 62782587 F10.288 there has been no seizure activity reported. hx seizures with withdrawal witnessed clonic tonic seizurestr eated with ativan and phenobarbi talencoura ged abstinence SUDs referralmo nitor for seizure activityco ntinue thiamine 100 mg qdfolate [address] 666 mg tid Laboratory test result abnormal 694620394 R89.9 In acute care rhabdo, hypokalemi a, transamini tis, hypomagnes emia , thrombocyt openia, normocytic , metabolic acidosis , normocytic anemia likely related to etoh abuse,,tx with IVF and supplement al replacemen tmonitor labs Bradycardia 86958077 R00 .1 denies any cardiac sx today. apical rate 70 Hx of syncope with implantabl e loop recorderSB in acute care with pausescard iology and EPS consulted- ILR interrogat ed, showed no correlatio n of syncope and pauses, no need for PPM. ILR removed.re commending PSG outpatient to r/o RAND- referral paced in [facility] Harmful pa ttern of use of cocaine 06951134 F14.10 refer to SUDsencour aged abstinence provide supportive services /refer to Homeless 40587620 Z59.00 marriage and family social worker for support and services Asthenia 03051922 R53.1 plan for OTimpaired gait/weakn ess Pineda 10 Asthma 335501833 J45.99 8 hxnot currently on medication smonitor for resp/clini aldair changes [id number] MIKE REYNOLDS [facility] on [address] [place] [phone] 07/26/2023 10:31:42 07/31/2023 15:13:33 Alcohol dependence 53651807 F10.288 there has been no seizure activity reported. hx seizures with withdrawal witnessed clonic tonic seizurestr eated with ativan and phenobarbi talencoura ged abstinence SUDs referralmo nitor for seizure activityco ntinue thiamine 100 mg qdfolate [address] 666 mg tid Bradycardia 49341568 R00 .1 HR 69Hx of syncope with implantabl e loop recorderSB in acute care with pausescard iology and EPS consulted- ILR interrogat ed, showed no correlatio n of syncope and pauses, no need for PPM. ILR removed.re commending PSG outpatient to r/o RAND- referral paced in [facility] Harmful pa ttern of use of cocaine 10062406 F14.10 refer to SUDsencour aged abstinence provide supportive services /refer to Homeless 27429921 Z59.00 marriage and family social worker for support and services Asthenia 27563547 R53.1 plan for OTimpaired gait/weakn ess10/11: he is ambulating with steady gait independen tly. Asthma 448815756 J45.99 8 hxnot currently on medication smonitor for resp/clini aldair changes [id number] MIKE REYNOLDS [facility] on [address] [place] [phone] 08/01/2023 09:31:41 08/08/2023 09:26:07 Alcohol dependence 79493767 F10.288 there has been no seizure activity reported. hx seizures with withdrawal witnessed clonic tonic seizurestr eated with ativan and phenobarbi talencoura ged abstinence SUDs referralmo nitor for seizure activityco ntinue thiamine 100 mg qdfolate [address] 666 mg tid Bradycardia 57791951 R00 .1 HR 69Hx of syncope with implantabl e loop recorderSB in acute care with pausescard iology and EPS consulted- ILR interrogat ed, showed no correlatio n of syncope and pauses, no need for PPM. ILR removed.re commending PSG outpatient to r/o RAND- referral paced in [facility] Harmful pa ttern of use of cocaine 43376989 F14.10 refer to SUDsencour aged abstinence provide supportive services /refer to Homeless 92531367 Z59.00 marriage and family social worker for support and services Asthenia 33216566 R53.1 plan for OTimpaired gait/weakn ess07/26: he is ambulating with steady gait independen tly. Asthma 882111866 J45.99 8 hxnot currently on medication smonitor for resp/clini aldair changes [id number] MIKE REYNOLDS [facility] on [address] [place] [address] 08/04/2023 08:03:49 08/08/2023 11:32:51 Alcohol dependence 14894468 F10.288 08/04: there has been no seizure activity reported. hx seizures with withdrawal witnessed clonic tonic seizurestr eated with ativan and phenobarbi talencoura ged abstinence SUDs referralmo nitor for seizure activityco ntinue thiamine 100 mg qdfolate [address] 666 mg tid Bradycardia 18925339 R00 .1 HR 69Hx of syncope with implantabl e loop recorderSB in acute care with pausescard iology and EPS consulted- ILR interrogat ed, showed no correlatio n of syncope and pauses, no need for PPM. ILR removed.re commending PSG outpatient to r/o RAND- referral paced in [facility] Harmful pa ttern of use of cocaine 71360600 F14.10 refer to SUDsencour aged abstinence provide supportive services /refer to Homeless 53356980 Z59.00 marriage and family social worker for support and services Asthenia 67585111 R53.1 plan for OTimpaired gait/weakn ess/: he is ambulating with steady gait independen tly.08/04: meeting goals with therapy, independen t with care. Asthma 743580372 J45.99 8 hxnot currently on medication smonitor for resp/clini aldair changes [id number] MIKE REYNOLDS [facility] on [address] [place] [address] 08/10/2023 08:14:16 08/17/2023 15:56:48 Alcohol dependence 70417007 F10.288 hx seizures with withdrawal witnessed clonic tonic seizurestr eated with ativan and phenobarbi talencoura ged abstinence SUDs referralmo nitor for seizure activityco ntinue thiamine 100 mg qdfolate [address] 666 mg tid Bradycardia 54478497 R00 .1 Hx of syncope with implantabl e loop recorderSB in acute care with pausescard iology and EPS consulted- ILR interrogat ed, showed no correlatio n of syncope and pauses, no need for PPM. ILR removed.re commending PSG outpatient to r/o RAND- referral paced in [facility] Harmful pa ttern of use of cocaine 70092076 F14.10 refer to SUDsencour aged abstinence provide supportive services /refer to [facility] Homeless 21245505 Z59.00 marriage and family social worker for support and services Asthenia 37438480 R53.1 08/09/2023 : therapy goals met.He is independen t on on unit. Asthma 193301877 J45.99 8 hxnot currently on medication smonitor for resp/clini aldair changes [id number] MIKE REYNOLDS [facility] on [address] [place] [address] 08/16/2023 07:01:21 08/18/2023 08:46:19 Alcohol dependence 49606645 F10.288 08/16: There has been no reported seizurehx seizures with withdrawal witnessed clonic tonic seizurestr eated with ativan and phenobarbi talencoura ged abstinence SUDs referralmo nitor for seizure activityco ntinue thiamine 100 mg qdfolate [address] 666 mg tid Asthma 314558154 J45.99 8 08/16: Denies any shortness of breath or resp. issuesnot currently on medication smonitor for resp/clini aldair changes [id number] Dayana Jerezjimena Blanchard [facility] on [address] [place] [address] 08/25/2023 10:10:49 08/28/2023 11:33:00 Alcohol dependence 43363694 F10.288 08/16: There has been no reported seizurehx seizures with withdrawal witnessed clonic tonic seizurestr eated with ativan and phenobarbi talencoura ged abstinence SUDs referralmo nitor for seizure activityco ntinue thiamine 100 mg qdfolate [address] 666 mg tid Asthma 510535178 J45.99 8 08/16: Denies any shortness of breath or resp. issuesnot currently on medication smonitor for resp/clini aldair changes Harmful pa ttern of use of cocaine 04910278 F14.10 follow up with outpatient carehas not used during SNF stay Homeless 24035147 Z59.00 discharge to half-way Sinus bradycardia 621756 05 R00.1 resolved, HR 78 today Laboratory test result abnormal 056487685 R89.9 resolved, follow up with outpt PCP next week Health Concerns Section Related Observation LastModified by Organization Detai ls LastModified Time None Recorded Concern Status LastModified by Organization Details LastModified Time None Recorded Advance Directives Directive Y: Payers Insurance Date Sequence Insurance Name Policy Number Policy Hobbs Covered Member ID Hobbs Member ID Guarantor Name 03/21/2024 1 [place] [facility] [id number] [facility] Notes Date Note Type Note Provider Name and Address Organization Details Recorded Time 08/01/2023 text/html ROS as noted in the HPI Seen today for acute rounding visit. Past medical history remarkable for alcohol abuse dependency with withdrawal seizures, syncope with implantable loop recorder in place. Presented to [facility] ED on 07/08/23 from outside source with both unwitnessed and witnessed seizure; on arrival to ED he had another witnessed tonic clonic seizure associated with post ictal. He was treated with IV ativan and started on phenobarbital protocol. He was admitted for ETOH withdrawal, Rhabdo and and found to have sinus pauses. Evaluated by therapy for weakness, admitted to [facility] for continued care and rehab. On exam today he is stable, there is no acute nursing concerns. progressing toward therapy goals. MIKE REYNOLDS [address], [address], [place], [address], [facility] [employer] 08/01/2023 14:12:08 08/04/2023 text/html ROS as noted in the HPI Seen today for acute rounding visit. Past medical history remarkable for alcohol abuse dependency with withdrawal seizures, syncope with implantable loop recorder in place. Presented to [facility] ED on 07/08/23 from outside source with both unwitnessed and witnessed seizure; on arrival to ED he had another witnessed tonic clonic seizure associated with post ictal. He was treated with IV ativan and started on phenobarbital protocol. He was admitted for ETOH withdrawal, Rhabdo and and found to have sinus pauses. Evaluated by therapy for weakness, admitted to [facility] for continued care and rehab. He continue to be medically stable, he has been working with therapy, as of note he has progressed to independent for adl no adaptive device required. On exam he noted ambulating on unit with steady gait, he tells me that he is ok, there is no acute nursing concerns. MIKE REYNOLDS [address], [address], [place], [address], [facility] [employer] [facility] 08/04/2023 13:02:43 08/10/2023 text/html ROS as noted in the HPI Duarte is seen today for acute rounding visit. Past medical history of ETOH abuse with withdrawal seizures, cocaine abuse, asthma.He has been stable, he offers no complaints. There is no acute nursing concerns. MIKE REYNOLDS [address], [address], [place], [address], [facility] [employer] 08/10/2023 10:56:55 08/16/2023 text/html Duarte is seen today for routine rounding MANAGER OF DATA 30 day visit. Past medical history of ETOH abuse with withdrawal seizures, cocaine abuse, asthma. Duarte is alert and verbal in NAD. He has been stable seen his last rounding visit, there is no complaints, there is no acute nursing concerns. MIKE REYNOLDS [address], [address], [place], [address], [facility] 08/16/2023 11:03:33 08/25/2023 text/html ROS as noted in the HPI Duarte is seen today for discharge. Past medical history of ETOH abuse with withdrawal seizures, cocaine abuse, asthma. Duarte is alert and verbal in NAD. He has been stable seen his last rounding visit, there is no complaints, there is no acute nursing concerns. Dayana valle [address], [address], [place], [address], [facility] 08/25/2023 10:26:05
--- OUTSIDE RECORDS SUMMARY | 2025-09-20 20:32 | XMS_ITS | Encounter Summary ---
Author Organization Formerly [facility] Address [address] [place] [address] Phone Care Team Providers Care Threader Operator Name Role Phone Ramin Arnold MD Primary Care Provider [phone] Encounter Details Date Type Department Care Team ([facility] st Contact Info) Description 11/16/2024 Ophth Exam AMANDA Consult from [address] [address] Lit Price MD [address] [place] [id number] [email or web address] Social History Tobacco Use Types Packs/Day Years [...] No Risk Indicated 11/16/2024 5:00 PM Ju iHnes RN * [place] Suicide Severity Rating Scale (Screener/Recent Self-Report) Question [...] on filedocumented in this encounter Care Teams Threader Operator Relationship Specialty Start Date End Date Ramin Arnold MD [email or web address] PCP - General Family Medicine 05/19/20 documented as of this encounter Additional Source Comments The information contained in this document represents components of the legal health record. It is not the complete legal health record.[facility]
--- OUTSIDE RECORDS SUMMARY | 2025-09-20 20:32 | XMS_ITS | Encounter Summary ---
Author Organization [facility] Address [address] [place] [address] Phone Care Team Providers Care Product Promoter Sales Person Name Role Phone Ramin Arnold MD Primary Care Provider [phone] Encounter Details Date Type Department Care Team (Late st Contact Info) Description 05/21/2020 Transcribe Orders [facility] Specimen Processing [address] [place] [address] Ramin Arnold MD [address] [place] [address] [address], [address] [place] [address] [email or web address] COVID-19 ruled out (Primary Dx) Social History [...] 5:36 PM EDT) Specimen Source NASOPHARYNGEAL SWAB (AUTOMOTIVE ENGINEERING TECHNICIAN) [facility] COVID Testing Status Sent to [facility] Micro Lab [facility] Other 05/21/2020 5:36 PM EDT 05/21/2020 5:47 PM EDT us Ramin Arnold MD LAB GENERAL ORDERABLES Final Res ult [facility] [address] [place] [address] documented in this encounter Visit Diagnoses Diagnosis COVID-19 ruled out- Primary documented in this encounter Additional Health Concerns Infection Onset Date Last Indicated Resolved Time CoV-Exposed Comment:Recent close contact 05/21/2020 05/21/2020 06/04/2020 1:23 AM EDT CoV-Exposed Comment:Recent close contact 06/04/2020 06/04/2020 06/18/2020 1:24 AM EDT CoV-Exposed Comment:Recent close contact 08/26/2020 08/26/2020 09/09/2020 1:24 AM EST documented as of this encounter Care Teams Product Promoter Sales Person Relationship Specialty Start Date End Date Ramin Arnold MD [email or web address] PCP - General Family Medicine 05/19/20 documented as of this encounter Additional Source Comments The information contained in this document represents components of the legal health record. It is not the complete legal health record.[facility]
[2025-09-20 22:00] VITALS: BP 97/50; PULSE 77; RESP 21; TEMP 37.1; O2SAT 98
[2025-09-21 05:50] VITALS: BP 117/67; PULSE 67; RESP 12; O2SAT 97
[2025-09-21 07:02] VITALS: BP 117/67; PULSE 67; RESP 12; TEMP 37.1; O2SAT 97
== END 2025-09-21 07:03 | disposition home or self-care (01) ==
PROVIDERS: Emergency Medicine Emergency Medical Services; Emergency Provider Emergency Medicine
DX: F10.129 Alcohol abuse with intoxication, unspecified (principal); Y90.8 Blood alcohol level of 240 mg/100 ml or more; Z51.81 Encounter for therapeutic drug level monitoring
CPT/HCPCS: 36415; 80048; 80307; 85025; 96360; 96361; 99284

== ENCOUNTER 2025-09-21 17:53 | Emergency (ER) | payer MEDICAID, SELFPAY ==
[2025-09-21 18:00] VITALS: BP 122/74; PULSE 93; O2SAT 97; BMI 25.8
[2025-09-21 18:21] VITALS: BP 132/92; PULSE 74; RESP 13; TEMP 36.6; O2SAT 96
--- NOTE | 2025-09-21 18:31 | PC.NURSE ---
Pt denies SI/HI/AVH. +ETOH states I just want to stay until the morning .
--- OUTSIDE RECORDS SUMMARY | 2025-09-21 18:45 | XMS_ITS | Encounter Summary ---
Author Organization [facility] Address [address] [place] [address] Phone Care Team Providers Care Distributor Of Directories Name Role Phone Ramin Arnold MD Primary Care Provider [phone] Encounter Details Date Type Department Care Team ([facility] st Contact Info) Description 11/16/2024 Ophth Exam AMANDA Consult from [address] [address] Lit Price MD [address] [place] [address] [email or web address] Social History Tobacco Use Types Packs/Day Years [...] 11/16/2024 5:00 PM Ju Hines RN * [place] Suicide Severity Rating Scale (Screener/Recent Self-Report) Question [...] on filedocumented in this encounter Care Teams Distributor Of Directories Relationship Specialty Start Date End Date Ramin Arnold MD [email or web address] PCP - General Family Medicine 05/19/20 documented as of this encounter Additional Source Comments The information contained in this document represents components of the legal health record. It is not the complete legal health record.[facility]
--- OUTSIDE RECORDS SUMMARY | 2025-09-21 18:45 | XMS_ITS | Encounter Summary ---
Author Organization [facility] Address [address] [place] [address] Phone Care Team Providers Care Environmental Education Specialist Name Role Phone Ramin Arnold MD Primary Care Provider [phone] Encounter Details Date Type Department Care Team (Late st Contact Info) Description 11/16/2024 Ophth Exam AMANDA Oph Trauma [address] [place] [address] [place] [address] Laurence Coelho MD [address] [place] [address] [email or web address] Social History Tobacco Use Types Packs/Day Years [...] 11/16/2024 5:00 PM Ju Hines RN * [place] Suicide Severity Rating Scale (Screener/Recent Self-Report) Question [...] on filedocumented in this encounter Care Teams Environmental Education Specialist Relationship Specialty Start Date End Date Ramin Arnold MD [email or web address] PCP - General Family Medicine 05/19/20 documented as of this encounter Additional Source Comments The information contained in this document represents components of the legal health record. It is not the complete legal health record.[facility]
--- OUTSIDE RECORDS SUMMARY | 2025-09-21 18:45 | XMS_ITS | Encounter Summary ---
Author Organization [facility] Address [address] [place] [address] Phone Care Team Providers Care Flight Software Test Engineer Name Role Phone Ramin Arnold MD Primary Care Provider [phone] Encounter Details Date Type Department Care Team (Late st Contact Info) Description 11/17/2024 Procedure Pass AMANDA 6TH FL PERIOP DEPT [address] [place] [address] Social History Tobacco Use Types Packs/Day Years [...] on filedocumented in this encounter Care Teams Flight Software Test Engineer Relationship Specialty Start Date End Date Ramin Arnold MD [email or web address] PCP - General Family Medicine 05/19/20 documented as of this encounter Additional Source Comments The information contained in this document represents components of the legal health record. It is not the complete legal health record.[facility]
--- OUTSIDE RECORDS SUMMARY | 2025-09-21 18:46 | XMS_ITS | Encounter Summary ---
Author Organization [facility] Address [address] [place] [address] Phone Care Team Providers Care Game Design Instructor Name Role Phone Ramin Arnold MD Primary Care Provider [phone] Encounter Details Date Type Department Care Team (Late st Contact Info) Description 11/19/2024 Ophth Exam AMANDA Oph Trauma [address] [place] [address] [place] [address] Laurence Coelho MD [address] [place] [address] [email or web address] Social History Tobacco Use Types Packs/Day Years [...] on filedocumented in this encounter Care Teams Game Design Instructor Relationship Specialty Start Date End Date Ramin Arnold MD [email or web address] PCP - General Family Medicine 05/19/20 documented as of this encounter Additional Source Comments The information contained in this document represents components of the legal health record. It is not the complete legal health record.[facility]
--- OUTSIDE RECORDS SUMMARY | 2025-09-21 18:46 | XMS_ITS | Clinical Summary ---
Author Organization [facility] Address [address] [place] [address] Phone Care Team Providers Care Potato Loader Name Role Phone Ramin Arnold MD Primary Care Provider Allergies Active Allergy Reactions Criticality Noted Date [...] Advance Directives For more information, please contact: [phone] (9AM - 5PM Sil/[facility], Monday-Monday) * Full Code (Latest Code Status on File) Date Activated Date Inactivated Comments 11/16/2024 5:47 PM Question Answer Comments Code Status Confirmed With: Patient * Full Code Date Activated Date Inactivated Comments 11/16/2024 5:45 PM 11/16/2024 5:47 PM Question Answer Comments Code Status Confirmed With: Other (specify below ) Care Teams Potato Loader Relationship Specialty Start Date End Date Ramin Arnold MD [email or web address] PCP - General Family Medicine 05/19/20 Additional Source Comments The information contained in this document represents components of the legal health record. It is not the complete legal health record.[facility]
--- OUTSIDE RECORDS SUMMARY | 2025-09-21 18:46 | XMS_ITS | Clinical Summary ---
Author Organization [facility] it Address [address] [place] [address] Care Team Providers Care Director Decision Support Name Role Phone Unavailable Primary Care Provider [...]
--- OUTSIDE RECORDS SUMMARY | 2025-09-21 18:46 | XMS_ITS | Encounter Summary ---
Author Organization [facility] Address [address] [place] [address] Phone Care Team Providers Care Health Underwriter Name Role Phone Ramin Arnold MD Primary Care Provider [phone] Encounter Details Date Type Department Care Team (Late st Contact Info) Description 05/21/2020 Transcribe Orders [facility] Specimen Processing [address] [place] [address] Ramin Arnold MD [address] [place] [address] [address], [address] [place] [address] [email or web address] COVID-19 ruled out (Primary Dx) Social History [...] 5:36 PM EDT) Specimen Source NASOPHARYNGEAL SWAB (TRANSFORMATION ARCHITECT) [facility] COVID Testing Status Sent to [facility] Micro Lab [facility] Other 05/21/2020 5:36 PM EDT 05/21/2020 5:47 PM EDT us Ramin Arnold MD LAB GENERAL ORDERABLES Final Res ult [facility] [address] [place] [address] documented in this encounter Visit Diagnoses Diagnosis COVID-19 ruled out- Primary documented in this encounter Additional Health Concerns Infection Onset Date Last Indicated Resolved Time CoV-Exposed Comment:Recent close contact 05/21/2020 05/21/2020 06/04/2020 1:23 AM EDT CoV-Exposed Comment:Recent close contact 06/04/2020 06/04/2020 06/18/2020 1:24 AM EDT CoV-Exposed Comment:Recent close contact 08/26/2020 08/26/2020 09/09/2020 1:24 AM EST documented as of this encounter Care Teams Health Underwriter Relationship Specialty Start Date End Date Ramin Arnold MD [email or web address] PCP - General Family Medicine 05/19/20 documented as of this encounter Additional Source Comments The information contained in this document represents components of the legal health record. It is not the complete legal health record.[facility]
--- OUTSIDE RECORDS SUMMARY | 2025-09-21 18:46 | XMS_ITS | Encounter Summary ---
Author Organization [facility] Address [address] [place] [address] Phone Care Team Providers Care Dumpman Name Role Phone Ramin Arnold MD Primary Care Provider [phone] Encounter Details Date Type Department Care Team (Late st Contact Info) Description 11/16/2024 Procedure Pass [facility] [address], [address] [place] [address] Social History Tobacco Use Types Packs/Day Years [...] 11/16/2024 5:00 PM Ju Hines RN * [place] Suicide Severity Rating Scale (Screener/Recent Self-Report) Question [...] on filedocumented in this encounter Care Teams Dumpman Relationship Specialty Start Date End Date Ramin Arnold MD PCP - General Family Medicine 05/19/20 documented as of this encounter Additional Source Comments The information contained in this document represents components of the legal health record. It is not the complete legal health record.[facility]
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
[2025-09-21 21:20] VITALS: BP 102/65; PULSE 86; RESP 18; TEMP 36.4; O2SAT 95
[2025-09-22 05:50] VITALS: BP 91/46; PULSE 60; RESP 16; TEMP 36.6; O2SAT 95
[2025-09-22 07:11] VITALS: BP 109/66; PULSE 83; RESP 16; TEMP 36.1; O2SAT 96
[2025-09-22 07:21] VITALS: BP 109/66; PULSE 83; RESP 16; TEMP 36.1; O2SAT 96
== END 2025-09-22 07:37 | disposition home or self-care (01) ==
PROVIDERS: Emergency Provider Emergency Medicine
DX: F10.120 Alcohol abuse with intoxication, uncomplicated (principal); Y90.9 Presence of alcohol in blood, level not specified; Z87.891 Personal history of nicotine dependence
CPT/HCPCS: 99284

== ENCOUNTER 2025-09-23 19:26 | Emergency (ER) | payer MEDICAID, SELFPAY ==
--- NOTE | ~2025-09-23 | CT_ITS ---
CLINICAL HISTORY: Fall drinking CT cervical spine without contrast Comparison: CT/SR - CT CERVICAL SPINE WITHOUT IV CONTRAST - 09/08/25 13:19 EST Findings: Vertebral alignment is within normal limits. Mild degenerative changes at C5-6. No acute fractures or dislocations. Prevertebral soft tissues within normal limits. Thyroid within normal limits. Lung apices are clear. IMPRESSION: No acute findings. This document has been electronically signed by: Ansley Coleman MD on 09/23/2025 21:52:53
--- NOTE | ~2025-09-23 | CT_ITS ---
CLINICAL HISTORY: Fall. drinking CT head without contrast Comparison: CT/SR - CT HEAD WITHOUT IV CONTRAST - 09/08/25 13:19 EST Findings: No intra-axial mass, midline shift, hydrocephalus, or acute hemorrhage. Mild cortical atrophy of the convexity. No significant white matter disease. Stable small right lateral frontal encephalomalacia. There is no sinus or mastoid fluid. The orbits are unremarkable. There is no acute skull fracture. Stable small round metallic foreign body in right temporal soft tissues. IMPRESSION: 1. No acute intracranial findings. 2. Stable nonacute findings. This document has been electronically signed by: Ansley Coleman MD on 09/23/2025 21:58:50
[2025-09-23 19:38] VITALS: BP 146/84; PULSE 96; O2SAT 94
[2025-09-23 19:54] VITALS: BP 120/69; PULSE 101; RESP 20; TEMP 36.6; O2SAT 100; BMI 32.5
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
[2025-09-23 21:30] LABS: MANUAL DIFF FLAG NO
[2025-09-23 21:31] LABS: Hematocrit 32.6 % (42.0-52.0); Hemoglobin 10.9 g/dl (14.0-18.0); Imm Gran Abs Auto 0.01 X10*3/uL (0.00-0.03); Imm Gran Pct Auto 0.3 % (0.0-0.4); Lymphocytes Absolute Auto 1.3 X10*3/uL (1.2-4.9); Mean Corpuscular HGB Conc 33.4 g/dl (31.0-36.0); Mean Corpuscular Hemoglobin 32.2 pg (27.0-33.0); Mean Corpuscular Volume 96.2 fL (80.0-98.0); NRBC Abs Auto 0.000 X10*3/uL (0.0-0.012); NRBC Pct Auto 0.0 /100WBC (0.0-0.2); Platelet Count 151 X10*3/uL (160-400); Red Blood Count 3.39 X10*6/uL (4.60-5.80); White Blood Count 2.9 X10*3/uL (4.8-10.8)
[2025-09-23 21:44] LABS: Alanine Aminotransferase 75 U/L (0-40); Albumin Level 3.9 g/dL (3.5-5.0); Alkaline Phosphatase 106 U/L (39-117); Anion Gap 12 (12-20); Aspartate Amino Transferase 149 U/L (5-37); Blood Urea Nitrogen 7 mg/dL (9-16); Calcium 8.7 mg/dL (8.4-10.2); Carbon Dioxide 27 mmol/L (22-29); Chloride 112 mmol/L (96-108); Creatinine Clr Calc Pharmacy 175.9; Estimated Glomerular Filt Rate > 60; Potassium 3.6 mmol/L (3.3-5.1); Sodium 147 mmol/L (135-145); Total Protein 7.9 g/dL (6.5-8.0)
[2025-09-23 22:15] VITALS: BP 106/57; PULSE 78; RESP 16; TEMP 36.6; O2SAT 92
--- NOTE | 2025-09-23 23:19 | PC.NURSE ---
Assumed care at 2200. Patient is calm and cooperative. overnight cashier completed out in the MAIN. Reports he fell at at warming half-way. Says he does not remember if he hit his head or not. Endorses 5/10 pain to back and legs. No current home medications per patient and states I won't take them either. Endorses daily ETOH use, unable to give amount consumed daily or time of last drink. Reports he quit Crack/Cocaine and Heroin 2 weeks ago. Provided drinks/snacks. Meal tray ordered. 15 minute safety checks initiated. Continue plan of care.
--- OUTSIDE RECORDS SUMMARY | 2025-09-23 23:26 | XMS_ITS | Encounter Summary ---
Author Organization [facility] Address [address] [place] [id number] Phone Care Team Providers Care Patron Attendant Name Role Phone Ramin Arnold MD Primary Care Provider [phone] Encounter Details Date Type Department Care Team (Late st Contact Info) Description 11/17/2024 Procedure Pass [facility] [address]TH FL PERIOP DEPT [address] [place] [address] Social History Tobacco Use Types Packs/Day Years [...] on filedocumented in this encounter Care Teams Patron Attendant Relationship Specialty Start Date End Date Ramin Arnold MD [email or web address] PCP - General Family Medicine 05/19/20 documented as of this encounter Additional Source Comments The information contained in this document represents components of the legal health record. It is not the complete legal health record.[facility]
--- OUTSIDE RECORDS SUMMARY | 2025-09-23 23:26 | XMS_ITS | Encounter Summary ---
Author Organization [facility] Address [address] [place] [address] Phone Care Team Providers Care Neurodiagnostic Tech Name Role Phone Ramin Arnold MD Primary Care Provider [phone] Encounter Details Date Type Department Care Team (Late st Contact Info) Description 11/16/2024 Procedure Pass [facility] [place] [address] [facility], [address] Floor, [address] [place] [address] Social History Tobacco Use Types Packs/Day Years [...] 11/16/2024 5:00 PM Ju Hines RN * [place] Suicide Severity Rating Scale (Screener/Recent Self-Report) Question [...] on filedocumented in this encounter Care Teams Neurodiagnostic Tech Relationship Specialty Start Date End Date Ramin Arnold MD PCP - General Family Medicine 05/19/20 documented as of this encounter Additional Source Comments The information contained in this document represents components of the legal health record. It is not the complete legal health record.[facility]
--- OUTSIDE RECORDS SUMMARY | 2025-09-23 23:26 | XMS_ITS | Encounter Summary ---
Author Organization [facility] Address [address] [place] [address] Phone Care Team Providers Care Assistant Laboratory Director Name Role Phone Ramin Arnold MD Primary Care Provider [phone] Encounter Details Date Type Department Care Team ([facility] st Contact Info) Description 11/16/2024 Ophth Exam [facility] Consult from [address] [address] Lit Price MD [address] [place] [address] [email or web address] Social History Tobacco Use Types Packs/Day Years [...] 11/16/2024 5:00 PM Ju Hines RN * [place] Suicide Severity Rating Scale (Screener/Recent Self-Report) Question [...] on filedocumented in this encounter Care Teams Assistant Laboratory Director Relationship Specialty Start Date End Date Ramin Arnold MD [email or web address] PCP - General Family Medicine 05/19/20 documented as of this encounter Additional Source Comments The information contained in this document represents components of the legal health record. It is not the complete legal health record.[facility]
--- OUTSIDE RECORDS SUMMARY | 2025-09-23 23:26 | XMS_ITS | Encounter Summary ---
Author Organization [facility] Address [address] [place] [address] Phone Care Team Providers Care Line Analyst Name Role Phone Ramin Arnold MD Primary Care Provider [phone] Encounter Details Date Type Department Care Team (Late st Contact Info) Description 11/16/2024 Ophth Exam [facility] Oph Trauma Main [place] [address] [place] [address] Laurence Coelho MD [address] [place] [phone] [email or web address] Social History Tobacco Use Types [...] 11/16/2024 5:00 PM Ju Hines RN * [place] Suicide Severity Rating Scale (Screener/Recent Self-Report) Question [...] on filedocumented in this encounter Care Teams Line Analyst Relationship Specialty Start Date End Date Ramin Arnold MD [email or web address] PCP - General Family Medicine 05/19/20 documented as of this encounter Additional Source Comments The information contained in this document represents components of the legal health record. It is not the complete legal health record.[facility]
--- OUTSIDE RECORDS SUMMARY | 2025-09-23 23:27 | XMS_ITS | Encounter Summary ---
Author Organization [facility] Address [address] [place] [address] Phone Care Team Providers Care Physician Extender Name Role Phone Ramin Arnold MD Primary Care Provider [phone] Encounter Details Date Type Department Care Team (Late st Contact Info) Description 11/19/2024 Ophth Exam [facility] Oph Trauma Main [place] [address] [place] [address] Laurence Coelho MD [address] [place] [phone] [email or web address] Social History Tobacco Use Types Packs/Day [...] on filedocumented in this encounter Care Teams Physician Extender Relationship Specialty Start Date End Date Ramin Arnold MD [email or web address] PCP - General Family Medicine 05/19/20 documented as of this encounter Additional Source Comments The information contained in this document represents components of the legal health record. It is not the complete legal health record.[facility]
--- OUTSIDE RECORDS SUMMARY | 2025-09-23 23:27 | XMS_ITS | Data Portability ---
Author Organization [facility], Main Office Address [address] [place] [address] Care Team Providers Care Senior Publications Specialist Name Role Phone [facility] OTHER Assessment Encounter Date [...] Address Organization Details Recorded Time Alcohol dependence 94574902 Active 2019 Riri harman, [facility] 0 10:55:15 Alcohol dependence 17091937 Active 2019 Riri Espinal null, [facility] 0 10:55:21 Sinus bradycardia 29563795 Active 2019 Riri harman, [facility] 0 10:55:22 Asthma 614778999 Active 2019 Riri harman, [facility] [employer] [facility] 0 10:55:25 Harmful pattern of use of cocaine 48649563 Active 2022 JESSICA HALEY, CASE RESOURCE MANAGER [address], [address], [place], [address], [facility] [employer] [facility] 3 17:51:39 Homeless 38158841 Active 2022 JESSICA HALEY, CASE RESOURCE MANAGER [address], [address], [place], [address], [facility] [employer] [facility] 3 18:07:02 Asthenia 09096762 Active 2022 JESSICA HALEY, [facility] [address], [place], [address], [facility] [employer] [facility] 3 18:07:05 Bradycardia 97256654 Active 2022 JESSICA HALEY, [facility] [address], [address], [place], [address], [facility] [employer] 3 18:07:11 Laboratory test result abnormal 711338285 Active 2022 JESSICA HALEY, CASE RESOURCE MANAGER [address], [place], [address], [facility] [employer] 3 18:07:15 Problem Notes None recorded. Medical Equipment None Reported. Allergies Allergen ID Allergen Name Allergen Category Reaction Reaction Severity Criticality Documentation Date Start Date Code Code System Note Provider Name and Address Organization Details Recorded Time 97764 shellfish derived food,medi cation Not available Not available Not available 05/19/2020 Riri harman, [facility] [employer] [facility] 0 08:43:01 Medications Not known to be on any medication Vitals Date Recorded Heart rate Respiratory rate Body temperature Oxygen saturation Systolic And Diastolic Provider Name and Address Organization Details Last Updated DateTime 3 78 /min 18 /min 97.4 [degF] 99 % 115/67 mm[Hg] Dayana Sarmiento -Kierkla [address], [address], [place], [address], [facility] [employer] 3 10:21:31 Social History Question Answer Notes LastModified by Organizat ion Details LastModified Time Tobacco Smoking Status Current Every Day Smoker 2 a day MIKE REYNOLDS [address], [address], [place], [address], [facility] 07/19/2023 17:16:49 Do You Have An Advance Directive? Yes Information not available 07/19/2023 What Is Your Code Status? Full Code Information not available 07/19/2023 Which Illicit Or Recreational Drugs Have You Used? Crack Cocaine Information not available 07/19/2023 Where Do You Live? Other Homeless Information not available 07/19/2023 Legal Guardian? No Informati on not available 07/19/2023 Do You Have A Medical Power Of Milk Sampler? No Information not available 07/19/2023 What Was [...] anxious, or unable to sleep at night)? [id number] Information not available 07/19/2023 Family History Relationship [...] 25mcg/0.25 mL dose 2 completed Nicole harman [facility] 10/17/2023 11:43:55 [facility] 14:21:00 Td (adult), 5 Lf tetanus toxoid, preservative free, adsorbed 7 completed Nicole harman [facility] 01/22/2024 14:21:20 Td (adult), 5 Lf tetanus toxoid, preservative free, adsorbed 8 completed Nicole harman [facility] 01/22/2024 14:21:35 pneumococcal polysaccharide PPV23 8 completed Nicole harman [facility] 01/22/2024 14:21:54 pneumococcal polysaccharide PPV23 6 completed Nicole harman [facility] 01/22/2024 14:22:04 Influenza, adjuvanted, quadrivalent, PF 3 completed Nicole harman [place] - [facility] 01/22/2024 14:23:02 Past Encounters Encounter ID Performer Location Encounter Start Date Encounter Closed Date Diagnosis/Indication Diagnosis SNOMED-CT Code Diagnosis ICD10 Code Diagnosis IMO Codes Diagnosis Note [id number] MIKE Chen [facility] on [address] [place] [address] 05/19/2020 08:42:26 05/29/2020 13:18:57 Alcohol dependence 04832254 F10.288 Hx of withdrawal seizuresFo lic acid 1 mg dailyThiam ine 100 mg dailyPT OT eval and treat Sinus bradycardia 693664 05 R00.1 Implanted marble installation helper in placeF/u with cardiology Monitor HR Asthma 701439024 J45.99 8 Monitor respirator y status Liver enzy mes level above reference range 460284332 R74.8 Secondary to heavy ETOH useRepeat and monitor [id number] Lois Multani MD [facility] on [address] [place] [address] 05/20/2020 07:06:00 05/29/2020 14:50:19 Alcohol dependence 25393887 F10.20 thiamine 100 mg dailyfolic acid 1 mg dailysocia l work fu to encourage ongoing support and treatment Asthenia 14053957 R53.1 PT/OTwill monitor Liver enzy mes level above reference range 355087728 R74.8 will monitor Sinus bradycardia 376210 05 R00.1 resolvedwi ll monitor [id number] MIKE Chen [facility] on [address] [place] [address] 05/26/2020 09:30:59 05/29/2020 13:59:21 Alcohol dependence 82222016 F10.288 Hx of withdrawal seizuresFo lic acid 1 mg dailyThiam ine 100 mg dailyNo sxs of withdrawal noted Sinus bradycardia 465840 05 R00.1 Implanted marble installation helper in placeF/u with cardiology Monitor HR-ranges 58-88 Asthma 590573586 J45.99 8 Monitor respirator y statusOn no medication s [id number] MIKE Chen [facility] on [address] [place] [address] 06/12/2020 08:31:05 06/16/2020 10:01:54 Alcohol dependence 42262034 F10.288 Hx of withdrawal seizuresFo lic acid 1 mg dailyThiam ine 100 mg dailyNo signs of withdrawal currently Sinus bradycardia 052989 05 R00.1 Implanted marble installation helper in placeF/u with cardiology Monitor HR Asthma 355523652 J45.99 8 Monitor respirator y status Liver enzy mes level above reference range 253026824 R74.8 Secondary to heavy ETOH useRepeat LFTs 06/15 [id number] Riri Espinal [facility] on [address] [place] [address] 06/16/2020 11:47:30 06/18/2020 11:34:00 Alcohol dependence 32296240 F10.288 Hx of withdrawal seizuresFo lic acid 1 mg dailyThiam ine 100 mg dailyNo signs of withdrawal Encouraged to remain sober Sinus bradycardia 403358 05 R00.1 Implanted marble installation helper in placeRemai ns asymptomat ic F/u with cardiology Asthma 762653535 J45.99 8 No respirator y issues currentlyF /u with PCP Liver enzy mes level above reference range 960989847 R74.8 Secondary to heavy ETOH useNow resolved [id number] JESSICA HALEY [facility] on [address] [place] [id number] 07/19/2023 15:26:02 07/27/2023 10:51:11 Laboratory test result abnormal 303330965 R89.9 In acute care rhabdo, hypokalemi a, transamini tis, hypomagnes emia , thrombocyt openia, normocytic , metabolic acidosis , normocytic anemia likely related to etoh abuse,,tx with IVF and supplement al replacemen tmonitor labs Alcohol dependence 77999 003 F10.288 hx seizures with withdrawal witnessed clonic tonic seizurestr eated with ativan and phenobarbi talencoura ged abstinence SUDs referralmo nitor for seizure activityco ntinue thiamine 100 mg qdfolate [address] 666 mg tid Bradycardia 97234696 R00 .1 Hx of syncope with implantabl e loop recorderSB in acute care with pausescard iology and EPS consulted- ILR interrogat ed, showed no correlatio n of syncope and pauses, no need for PPM. ILR removed.re commending PSG outpatient to r/o RAND- referral paced in [facility] Harmful pa ttern of use of cocaine 68411608 F14.10 refer to SUDsencour aged abstinence provide supportive services /refer to [facility] Homeless 14496025 Z59.00 older adult social work specialist for support and services Asthenia 91132393 R53.1 impaired gait/weakn essPT/OT evalMorse 10 Asthma 909648324 J45.99 8 hxnot currently on medication smonitor for resp/clini aldair changes [id number] Lois Multani MD [facility] on [address] [place] [address] 07/21/2023 05:52:30 07/27/2023 11:40:25 Asthenia 01265426 R53.1 PT/OTwill monitor Alcohol dependence 80967 003 F10.288 thiamine 100 mg dailyfolic acid 1 mg dailyacamp rosate 666 mg tldsocial work fu to encourage ongoing support and treatment Bradycardia 66699391 R00 .1 not associated with syncopewil l monitor History of seizure due to alcohol withdrawal 2300339455 05884 Z86.69 completed withdrawal protocolwi ll monitor [id number] MIKE REYNOLDS [facility] on [address] [place] [id number] 07/24/2023 09:10:19 07/31/2023 15:03:51 Alcohol dependence 62281384 F10.288 there has been no seizure activity reported. hx seizures with withdrawal witnessed clonic tonic seizurestr eated with ativan and phenobarbi talencoura ged abstinence SUDs referralmo nitor for seizure activityco ntinue thiamine 100 mg qdfolate [address] 666 mg tid Laboratory test result abnormal 591217465 R89.9 In acute care rhabdo, hypokalemi a, transamini tis, hypomagnes emia , thrombocyt openia, normocytic , metabolic acidosis , normocytic anemia likely related to etoh abuse,,tx with IVF and supplement al replacemen tmonitor labs Bradycardia 24620561 R00 .1 denies any cardiac sx today. [...] Harmful pa ttern of use of cocaine 37122268 F14.10 refer to SUDsencour aged abstinence provide supportive services /refer to Homeless 77741111 Z59.00 older adult social work specialist for support and services Asthenia 08675774 R53.1 plan for OTimpaired gait/weakn ess Pineda 10 Asthma 608051104 J45.99 8 hxnot currently on medication smonitor for resp/clini aldair changes [id number] MIKE REYNOLDS [facility] on [address] [place] [address] 07/26/2023 10:31:42 07/31/2023 15:13:33 Alcohol dependence 33029355 F10.288 there has been no seizure activity reported. hx seizures with withdrawal witnessed clonic tonic seizurestr eated with ativan and phenobarbi talencoura ged abstinence SUDs referralmo nitor for seizure activityco ntinue thiamine 100 mg qdfolate [address] 666 mg tid Bradycardia 48806711 R00 .1 HR 69Hx of syncope with implantabl e loop recorderSB in acute care with pausescard iology and EPS consulted- ILR interrogat ed, showed no correlatio n of syncope and pauses, no need for PPM. ILR removed.re commending PSG outpatient to r/o RAND- referral paced in [facility] Harmful pa ttern of use of cocaine 75905166 F14.10 refer to SUDsencour aged abstinence provide supportive services /refer to Homeless 06294780 Z59.00 older adult social work specialist for support and services Asthenia 20157061 R53.1 plan for OTimpaired gait/weakn ess10/11: he is ambulating with steady gait independen tly. Asthma 894983802 J45.99 8 hxnot currently on medication smonitor for resp/clini aldair changes [id number] MIKE REYNOLDS [facility] on [address] [place] [address] 08/01/2023 09:31:41 08/08/2023 09:26:07 Alcohol dependence 76837540 F10.288 there has been no seizure activity reported. hx seizures with withdrawal witnessed clonic tonic seizurestr eated with ativan and phenobarbi talencoura ged abstinence SUDs referralmo nitor for seizure activityco ntinue thiamine 100 mg qdfolate [address] 666 mg tid Bradycardia 45092623 R00 .1 HR 69Hx of syncope with implantabl e loop recorderSB in acute care with pausescard iology and EPS consulted- ILR interrogat ed, showed no correlatio n of syncope and pauses, no need for PPM. ILR removed.re commending PSG outpatient to r/o RAND- referral paced in [facility] Harmful pa ttern of use of cocaine 68928206 F14.10 refer to SUDsencour aged abstinence provide supportive services /refer to Homeless 36408679 Z59.00 older adult social work specialist for support and services Asthenia 02339687 R53.1 plan for OTimpaired gait/weakn ess07/26: he is ambulating with steady gait independen tly. Asthma 318789183 J45.99 8 hxnot currently on medication smonitor for resp/clini aldair changes [id number] MIKE REYNOLDS [facility] on [address] [place] [address] 08/04/2023 08:03:49 08/08/2023 11:32:51 Alcohol dependence 52447652 F10.288 08/04: there has been no seizure activity reported. hx seizures with withdrawal witnessed clonic tonic seizurestr eated with ativan and phenobarbi talencoura ged abstinence SUDs referralmo nitor for seizure activityco ntinue thiamine 100 mg qdfolate [address] 666 mg tid Bradycardia 74576422 R00 .1 HR 69Hx of syncope with implantabl e loop recorderSB in acute care with pausescard iology and EPS consulted- ILR interrogat ed, showed no correlatio n of syncope and pauses, no need for PPM. ILR removed.re commending PSG outpatient to r/o RAND- referral paced in [facility] Harmful pa ttern of use of cocaine 70615551 F14.10 refer to SUDsencour aged abstinence provide supportive services /refer to Homeless 91564218 Z59.00 older adult social work specialist for support and services Asthenia 40543325 R53.1 plan for OTimpaired gait/weakn ess/: he is ambulating with steady gait independen tly.08/04: meeting goals with therapy, independen t with care. Asthma 728975164 J45.99 8 hxnot currently on medication smonitor for resp/clini aldair changes [id number] MIKE REYNOLDS [facility] on [address] [place] [address] 08/10/2023 08:14:16 08/17/2023 15:56:48 Alcohol dependence 87881663 F10.288 hx seizures with withdrawal witnessed clonic tonic seizurestr eated with ativan and phenobarbi talencoura ged abstinence SUDs referralmo nitor for seizure activityco ntinue thiamine 100 mg qdfolate [address] 666 mg tid Bradycardia 09008383 R00 .1 Hx of syncope with implantabl e loop recorderSB in acute care with pausescard iology and EPS consulted- ILR interrogat ed, showed no correlatio n of syncope and pauses, no need for PPM. ILR removed.re commending PSG outpatient to r/o RAND- referral paced in [facility] Harmful pa ttern of use of cocaine 32803012 F14.10 refer to SUDsencour aged abstinence provide supportive services /refer to SW Homeless 47528007 Z59.00 older adult social work specialist for support and services Asthenia 51702772 R53.1 08/09/2023 : therapy goals met.He is independen t on on unit. Asthma 541204381 J45.99 8 hxnot currently on medication smonitor for resp/clini aldair changes [id number] MIKE REYNOLDS [facility] on [address] [place] [address] 08/16/2023 07:01:21 08/18/2023 08:46:19 Alcohol dependence 06125766 F10.288 08/16: There has been no reported seizurehx seizures with withdrawal witnessed clonic tonic seizurestr eated with ativan and phenobarbi talencoura ged abstinence SUDs referralmo nitor for seizure activityco ntinue thiamine 100 mg qdfolate [address] 666 mg tid Asthma 583175480 J45.99 8 08/16: Denies any shortness of breath or resp. issuesnot currently on medication smonitor for resp/clini aldair changes [id number] Dayana Jerezjimena Blanchard [facility] on [address] [place] [address] 08/25/2023 10:10:49 08/28/2023 11:33:00 Alcohol dependence 46912305 F10.288 08/16: There has been no reported seizurehx seizures with withdrawal witnessed clonic tonic seizurestr eated with ativan and phenobarbi talencoura ged abstinence SUDs referralmo nitor for seizure activityco ntinue thiamine 100 mg qdfolate [address] 666 mg tid Asthma 591417604 J45.99 8 08/16: Denies any shortness of breath or resp. issuesnot currently on medication smonitor for resp/clini aldair changes Harmful pa ttern of use of cocaine 98767656 F14.10 follow up with outpatient carehas not used during SNF stay Homeless 49764844 Z59.00 discharge to correction Sinus bradycardia 439863 05 R00.1 resolved, HR 78 today Laboratory test result abnormal 690414249 R89.9 resolved, follow up with outpt PCP next week Health Concerns Section Related Observation LastModified by Organization Detai ls LastModified Time None Recorded Concern Status LastModified by Organization Details LastModified Time None Recorded Advance Directives Directive Y: Payers Insurance Date Sequence Insurance Name Policy Number Policy Hobbs Covered Member ID Hobbs Member ID Guarantor Name 03/21/2024 1 [place]: [facility] [id number] [facility] Notes Date Note Type Note Provider Name and Address Organization Details Recorded Time 08/01/2023 text/html ROS as noted in the HPI Seen today for acute rounding visit. Past medical history remarkable for alcohol abuse dependency with withdrawal seizures, syncope with implantable loop recorder in place. Presented to [facility] on 07/08/23 from outside source with both unwitnessed and witnessed seizure; on arrival to ED he had another witnessed tonic clonic seizure associated with post ictal. He was treated with IV ativan and started on phenobarbital protocol. He was admitted for ETOH withdrawal, Rhabdo and and found to have sinus pauses. Evaluated by therapy for weakness, [facility]. On exam today he is stable, there is no acute nursing concerns. progressing toward therapy goals. MIKE REYNOLDS [address], [address], [place], [address], [facility] [employer] 08/01/2023 14:12:08 08/04/2023 text/html ROS as noted in the HPI Seen today for acute rounding visit. Past medical history remarkable for alcohol abuse dependency with withdrawal seizures, syncope with implantable loop recorder in place. Presented to [facility] on 07/08/23 from outside source with both unwitnessed and witnessed seizure; on arrival to ED he had another witnessed tonic clonic seizure associated with post ictal. He was treated with IV ativan and started on phenobarbital protocol. He was admitted for ETOH withdrawal, Rhabdo and and found to have sinus pauses. Evaluated by therapy for weakness, [facility]. He continue to be medically stable, he has been working with therapy, as of note he has progressed to independent for adl no adaptive device required. On exam he noted ambulating on unit with steady gait, he tells me that he is ok, there is no acute nursing concerns. MIKE REYNOLDS [address], [address], [place], [address], [facility] [employer] [facility] 08/04/2023 13:02:43 08/10/2023 text/html ROS as noted in the HPI Duarte is seen today for acute rounding visit. Past medical history of ETOH abuse with withdrawal seizures, cocaine abuse, asthma.He has been stable, he offers no complaints. There is no acute nursing concerns. 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 Past medical history of ETOH abuse with withdrawal seizures, cocaine abuse, asthma. Duarte is alert and verbal in NAD. He has been stable seen his last rounding visit, there is no complaints, there is no acute nursing concerns. MIKE REYNOLDS [address], [address], [place], [address], [facility] 08/16/2023 11:03:33 08/25/2023 text/html ROS as noted in the HPI Duarte is seen today for discharge. Past medical history of ETOH abuse with withdrawal seizures, cocaine abuse, asthma. Duarte is alert and verbal in NAD. He has been stable seen his last rounding visit, there is no complaints, there is no acute nursing concerns. Dayana valle [address], [address], [place], [address], [facility] 08/25/2023 10:26:05
--- OUTSIDE RECORDS SUMMARY | 2025-09-23 23:27 | XMS_ITS | Clinical Summary ---
Author Organization [facility] Address [address] [place] [address] Phone Care Team Providers Care Tile Mason Name Role Phone Ramin Arnold MD Primary Care Provider [phone] Allergies Active Allergy Reactions Criticality Noted Date [...] Advance Directives For more information, please contact: [phone] (9AM - 5PM Sil/[facility], Monday-Monday) * Full Code (Latest Code Status on File) Date Activated Date Inactivated Comments 11/16/2024 5:47 PM Question Answer Comments Code Status Confirmed With: Patient * Full Code Date Activated Date Inactivated Comments 11/16/2024 5:45 PM 11/16/2024 5:47 PM Question Answer Comments Code Status Confirmed With: Other (specify below ) Care Teams Tile Mason Relationship Specialty Start Date End Date Ramin Arnold MD [email or web address] PCP - General Family Medicine 05/19/20 Additional Source Comments The information contained in this document represents components of the legal health record. It is not the complete legal health record.[facility]
--- OUTSIDE RECORDS SUMMARY | 2025-09-23 23:27 | XMS_ITS | Encounter Summary ---
Author Organization [facility] Address [address] [place] [address] Phone Care Team Providers Care Geoscience Laboratory Technician Name Role Phone Ramin Arnold MD Primary Care Provider [phone] Encounter Details Date Type Department Care Team (Late st Contact Info) Description 05/21/2020 Transcribe Orders [facility] Specimen Processing [address] [place] [address] Ramin Arnold MD [address] [place] [address] [address] [place] [address] [email or web address] COVID-19 ruled out (Primary Dx) [...] 5:36 PM EDT) Specimen Source NASOPHARYNGEAL SWAB (ENVIRONMENTAL PLANNER) [facility] COVID Testing Status Sent to [facility] Other 05/21/2020 5:36 PM EDT 05/21/2020 5:47 PM EDT us Ramin Arnold MD LAB GENERAL ORDERABLES Final Res ult [facility] [address] [place] [address] documented in this encounter Visit Diagnoses Diagnosis COVID-19 ruled out- Primary documented in this encounter Additional Health Concerns Infection Onset Date Last Indicated Resolved Time CoV-Exposed Comment:Recent close contact 05/21/2020 05/21/2020 06/04/2020 1:23 AM EDT CoV-Exposed Comment:Recent close contact 06/04/2020 06/04/2020 06/18/2020 1:24 AM EDT CoV-Exposed Comment:Recent close contact 08/26/2020 08/26/2020 09/09/2020 1:24 AM EST documented as of this encounter Care Teams Geoscience Laboratory Technician Relationship Specialty Start Date End Date Ramin Arnold MD [email or web address] PCP - General Family Medicine 05/19/20 documented as of this encounter Additional Source Comments The information contained in this document represents components of the legal health record. It is not the complete legal health record.[facility]
--- OUTSIDE RECORDS SUMMARY | 2025-09-23 23:27 | XMS_ITS | Clinical Summary ---
Author Organization [facility] it Address [address] [place] [address] Care Team Providers Care Rock Mason Name Role Phone Unavailable Primary Care Provider [...]
[2025-09-24 06:39] LABS: Appearance Urine Cloudy; Glucose Urine UA Negative (Negative); PH 5.5 (5.0-9.0); Specific Gravity - Urine 1.020 (1.005-1.025); UMIC TRIGGER UACC YES
[2025-09-24 06:41] VITALS: BP 111/64; PULSE 64; TEMP 36.2; O2SAT 95
[2025-09-24 06:48] LABS: Cannabinoid Screen Urine Not Detected (Not Detect)
--- NOTE | 2025-09-24 07:57 | PC.NURSE ---
Assumed care of patient at 0645, patient appears to be in no apparent distress this am, calm and cooperative, offering no complaints to this RN. continue plan of care for CARE team eval
[2025-09-24 09:54] VITALS: BP 111/64; PULSE 64; RESP 16; TEMP 36.2; O2SAT 95
== END 2025-09-24 09:55 | disposition home or self-care (01) ==
PROVIDERS: Physician Assistant; Emergency Provider Emergency Medicine
DX: F10.129 Alcohol abuse with intoxication, unspecified (principal); R45.851 Suicidal ideations; Z59.01 Sheltered homelessness; Z91.81 History of falling; Y90.8 Blood alcohol level of 240 mg/100 ml or more
CPT/HCPCS: 36415; 70450; 72125; 80053; 80307; 81001; 85025; 99284; 99285; S9485

== ENCOUNTER → 2025-09-23 19:59 | Outpatient (BNV) | payer MEDICAID, SELFPAY | PROVIDERS: Emergency Provider Emergency Medicine; Visit Provider Specialist | DX: F10.90 Alcohol use, unspecified, uncomplicated (principal); Z04.3 Encounter for examination and observation following other accident | CPT/HCPCS: 70450; 72125 ==

== ENCOUNTER 2025-09-24 19:24 | Emergency (ER) | payer MEDICAID, SELFPAY ==
--- NOTE | 2025-09-24 | ECG_ITS ---
Test Reason : SUBSTANCE ABUSE Blood Pressure : */* mmHG Vent. Rate : 73 BPM Atrial Rate : 73 BPM P-R Int : 182 ms QRS Dur : 88 ms QT Int : 376 ms P-R-T Axes : 58 57 66 degrees QTcB Int : 414 ms Normal sinus rhythm Early repolarization Normal ECG When compared with ECG of 08-Sep-2025 12:25, No significant change was found Referred By: Generic ED Physician Electronically Signed By: TIFFANY FELIZ MD
[2025-09-24 19:31] VITALS: BP 108/67; BP 120/76; PULSE 76; PULSE 88; RESP 16; TEMP 36.4; O2SAT 97; BMI 23.6
--- NOTE | 2025-09-24 20:00 | PC.NURSE ---
Assumed care of pt, EDINSON found outisdolga presents to the ED for ETOH and SI/HI statements, pt stated that he wants to drink himself to , pt is cooperative with paint roller cover machine setter and lab work, aaox3,nad, pt given nourishment and resting comfortably
[2025-09-24 20:16] LABS: MANUAL DIFF FLAG NO
[2025-09-24 20:17] LABS: Hematocrit 36.1 % (42.0-52.0); Hemoglobin 11.8 g/dl (14.0-18.0); Imm Gran Abs Auto 0.01 X10*3/uL (0.00-0.03); Imm Gran Pct Auto 0.3 % (0.0-0.4); Lymphocytes Absolute Auto 1.6 X10*3/uL (1.2-4.9); Mean Corpuscular HGB Conc 32.7 g/dl (31.0-36.0); Mean Corpuscular Hemoglobin 31.8 pg (27.0-33.0); Mean Corpuscular Volume 97.3 fL (80.0-98.0); NRBC Abs Auto 0.000 X10*3/uL (0.0-0.012); NRBC Pct Auto 0.0 /100WBC (0.0-0.2); Platelet Count 144 X10*3/uL (160-400); Red Blood Count 3.71 X10*6/uL (4.60-5.80); White Blood Count 3.4 X10*3/uL (4.8-10.8)
[2025-09-24 20:23] VITALS: BP 108/67; PULSE 76; RESP 16; TEMP 36.4; O2SAT 97
[2025-09-24 20:32] LABS: Alanine Aminotransferase 80 U/L (0-40); Albumin Level 4.3 g/dL (3.5-5.0); Alkaline Phosphatase 107 U/L (39-117); Anion Gap 16 (12-20); Aspartate Amino Transferase 152 U/L (5-37); Blood Urea Nitrogen 6 mg/dL (9-16); Calcium 8.7 mg/dL (8.4-10.2); Carbon Dioxide 28 mmol/L (22-29); Chloride 110 mmol/L (96-108); Creatinine Clr Calc Pharmacy 158.3; Estimated Glomerular Filt Rate > 60; Potassium 3.6 mmol/L (3.3-5.1); Sodium 150 mmol/L (135-145); Total Protein 8.7 g/dL (6.5-8.0)
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
--- OUTSIDE RECORDS SUMMARY | 2025-09-25 01:00 | XMS_ITS | Encounter Summary ---
Author Organization [facility] Address [address] [place] [address] Phone Care Team Providers Care Hydrogenation Operator Name Role Phone Ramin Arnold MD Primary Care Provider [phone] Encounter Details Date Type Department Care Team ([facility] st Contact Info) Description 11/16/2024 Ophth Exam AMANDA Consult from [address] [address] Lit Price MD [address] [place] [address] [email or web address] Social History Tobacco [...] 11/16/2024 5:00 PM Ju Hines RN * [place] Suicide Severity Rating Scale (Screener/Recent Self-Report) Question [...] on filedocumented in this encounter Care Teams Hydrogenation Operator Relationship Specialty Start Date End Date Ramin Arnold MD [email or web address] PCP - General Family Medicine 05/19/20 documented as of this encounter Additional Source Comments The information contained in this document represents components of the legal health record. It is not the complete legal health record.[facility]
--- OUTSIDE RECORDS SUMMARY | 2025-09-25 01:00 | XMS_ITS | Encounter Summary ---
Author Organization [facility] Address [address] [place] [address] Phone Care Team Providers Care Otr Flatbed Driver Name Role Phone Ramin Arnold MD Primary Care Provider [phone] Encounter Details Date Type Department Care Team (Late st Contact Info) Description 11/16/2024 Ophth Exam AMANDA Oph Trauma Main [place] [address] [place] [address] Laurence Coelho MD [address] [place] [id number] [email or web address] Social History Tobacco Use Types [...] 11/16/2024 5:00 PM Ju Hines RN * [place] Suicide Severity Rating Scale (Screener/Recent Self-Report) Question [...] on filedocumented in this encounter Care Teams Otr Flatbed Driver Relationship Specialty Start Date End Date Ramin Arnold MD [email or web address] PCP - General Family Medicine 05/19/20 documented as of this encounter Additional Source Comments The information contained in this document represents components of the legal health record. It is not the complete legal health record.[facility]
--- OUTSIDE RECORDS SUMMARY | 2025-09-25 01:00 | XMS_ITS | Clinical Summary ---
Author Organization [facility] it Address [address] [place] [address] Care Team Providers Care Suppression Crew Leader Name Role Phone Unavailable Primary Care Provider [...]
--- OUTSIDE RECORDS SUMMARY | 2025-09-25 01:00 | XMS_ITS | Encounter Summary ---
Author Organization [facility] Address [address] [place] [address] Phone Care Team Providers Care Long Term Care Pharmacist Name Role Phone Ramin Arnold MD Primary Care Provider [phone] Encounter Details Date Type Department Care Team (Late st Contact Info) Description 11/16/2024 Procedure Pass [facility], [address] [facility], 2nd Floor, [address] [place] [address] Social History Tobacco Use Types Packs/Day Years [...] 11/16/2024 5:00 PM Ju Hines RN * [place] Suicide Severity Rating Scale (Screener/Recent Self-Report) Question [...] on filedocumented in this encounter Care Teams Long Term Care Pharmacist Relationship Specialty Start Date End Date Ramin Arnold MD PCP - General Family Medicine 05/19/20 documented as of this encounter Additional Source Comments The information contained in this document represents components of the legal health record. It is not the complete legal health record.[facility]
--- OUTSIDE RECORDS SUMMARY | 2025-09-25 01:00 | XMS_ITS | Encounter Summary ---
Author Organization [facility] Address [address] [place] [address] Phone Care Team Providers Care Public Health Director Name Role Phone Ramin Arnold MD Primary Care Provider [phone] Encounter Details Date Type Department Care Team (Late st Contact Info) Description 11/17/2024 Procedure Pass AMANDA [address] PERIOP DEPT [address] [place] [address] Social History Tobacco Use Types Packs/Day Years [...] on filedocumented in this encounter Care Teams Public Health Director Relationship Specialty Start Date End Date Ramin Arnold MD [email or web address] PCP - General Family Medicine 05/19/20 documented as of this encounter Additional Source Comments The information contained in this document represents components of the legal health record. It is not the complete legal health record.[facility]
--- OUTSIDE RECORDS SUMMARY | 2025-09-25 01:00 | XMS_ITS | Encounter Summary ---
Author Organization [facility] Address [address] [place] [address] Phone Care Team Providers Care Furrier Designer Name Role Phone Ramin Arnold MD Primary Care Provider [phone] Encounter Details Date Type Department Care Team (Late st Contact Info) Description 05/21/2020 Transcribe Orders [facility] Specimen Processing [address] [place] [address] Ramin Arnold MD [address] [place] [address] [address] [place] [address] [email or web address] COVID-19 ruled out (Primary Dx) Social History [...] 5:36 PM EDT) Specimen Source NASOPHARYNGEAL SWAB (JOB RECRUITER) [facility] COVID Testing Status Sent to [facility] Micro Lab [facility] Other 05/21/2020 5:36 PM EDT 05/21/2020 5:47 PM EDT us Ramin Arnold MD LAB GENERAL ORDERABLES Final Res ult [facility] [address] [place] [address] documented in this encounter Visit Diagnoses Diagnosis COVID-19 ruled out- Primary documented in this encounter Additional Health Concerns Infection Onset Date Last Indicated Resolved Time CoV-Exposed Comment:Recent close contact 05/21/2020 05/21/2020 06/04/2020 1:23 AM EDT CoV-Exposed Comment:Recent close contact 06/04/2020 06/04/2020 06/18/2020 1:24 AM EDT CoV-Exposed Comment:Recent close contact 08/26/2020 08/26/2020 09/09/2020 1:24 AM EST documented as of this encounter Care Teams Furrier Designer Relationship Specialty Start Date End Date Ramin Arnold MD [email or web address] PCP - General Family Medicine 05/19/20 documented as of this encounter Additional Source Comments The information contained in this document represents components of the legal health record. It is not the complete legal health record.[facility]
--- OUTSIDE RECORDS SUMMARY | 2025-09-25 01:00 | XMS_ITS | Encounter Summary ---
Author Organization [facility] Address [address] [place] [address] Phone Care Team Providers Care Loop Cutter Name Role Phone Ramin Arnold MD Primary Care Provider [phone] Encounter Details Date Type Department Care Team (Late st Contact Info) Description 11/19/2024 Ophth Exam AMANDA Oph Trauma Main [place] [address] [place] [address] Laurence Coelho MD [address] [place] [phone] [email or web address] Social History Tobacco Use Types Packs/Day Years [...] on filedocumented in this encounter Care Teams Loop Cutter Relationship Specialty Start Date End Date Ramin Arnold MD [email or web address] PCP - General Family Medicine 05/19/20 documented as of this encounter Additional Source Comments The information contained in this document represents components of the legal health record. It is not the complete legal health record.[facility]
--- OUTSIDE RECORDS SUMMARY | 2025-09-25 01:00 | XMS_ITS | Clinical Summary ---
Author Organization [facility] Address [address] [place] [address] Phone Care Team Providers Care International Marketing Executive Name Role Phone Ramin Arnold MD Primary Care Provider [phone] Allergies Active Allergy Reactions Criticality Noted Date [...] Advance Directives For more information, please contact: [phone] (9AM - 5PM [facility], Monday-Monday) * Full Code (Latest Code Status on File) Date Activated Date Inactivated Comments 11/16/2024 5:47 PM Question Answer Comments Code Status Confirmed With: Patient * Full Code Date Activated Date Inactivated Comments 11/16/2024 5:45 PM 11/16/2024 5:47 PM Question Answer Comments Code Status Confirmed With: Other (specify below ) Care Teams International Marketing Executive Relationship Specialty Start Date End Date Ramin Arnold MD [email or web address] PCP - General Family Medicine 05/19/20 Additional Source Comments The information contained in this document represents components of the legal health record. It is not the complete legal health record.[facility]
[2025-09-25 01:23] VITALS: BP 94/56; PULSE 72; RESP 16; TEMP 36.1; O2SAT 95
[2025-09-25 06:08] VITALS: BP 125/52; PULSE 77; RESP 16; TEMP 36.5; O2SAT 94
--- NOTE | 2025-09-25 06:25 | MHC.EDTECH ---
patients belongings locked up in [place] shelf 1 4 bags
[2025-09-25 08:49] LABS: Cannabinoid Screen Urine Not Detected (Not Detect)
[2025-09-25 09:15] VITALS: BP 125/52; PULSE 77; RESP 16; TEMP 36.5; O2SAT 94
== END 2025-09-25 09:16 | disposition home or self-care (01) ==
PROVIDERS: Emergency Provider Emergency Medicine; PCP Internal Medicine
DX: F10.120 Alcohol abuse with intoxication, uncomplicated (principal); Y90.8 Blood alcohol level of 240 mg/100 ml or more; R45.851 Suicidal ideations
CPT/HCPCS: 36415; 80053; 80307; 85025; 93005; 99285; S9485

== ENCOUNTER → 2025-09-24 19:55 | Outpatient (BNV) | payer MEDICAID, SELFPAY | PROVIDERS: Emergency Provider Emergency Medicine; PCP Internal Medicine; Visit Provider Internal Medicine Cardiovascular Disease | DX: F19.10 Other psychoactive substance abuse, uncomplicated (principal) | CPT/HCPCS: 93010 ==

== ENCOUNTER 2025-09-25 19:10 | Emergency (ER) | payer MEDICAID, SELFPAY ==
[2025-09-25 19:23] VITALS: BP 118/80; BP 152/92; PULSE 67; PULSE 68; RESP 16; TEMP 36.4; O2SAT 96; O2SAT 97; BMI 28.2
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
--- NOTE | 2025-09-25 19:52 | PC.NURSE ---
pt biba from the street, a&ox4, respirations even and unlabored. pt reports vague si without a plan as well as etoh/ unknown drug use. pt ambulatory to family room with security and changed over. belongings secured
--- OUTSIDE RECORDS SUMMARY | 2025-09-25 23:34 | XMS_ITS | Data Portability ---
Author Organization [facility], Main Office Address [address] [place] [address] Care Team Providers Care Finisher Map And Chart Name Role Phone [facility] OTHER Assessment Encounter Date [...] Address Organization Details Recorded Time Alcohol dependence 88563578 Active 2019 Riri harman, [facility] 0 10:55:15 Alcohol dependence 85408377 Active 2019 Riri Espinal null, [facility] 0 10:55:21 Sinus bradycardia 52497908 Active 2019 Riri harman, [facility] 0 10:55:22 Asthma 438695333 Active 2019 Riri harman, [facility] [employer] [facility] 0 10:55:25 Harmful pattern of use of cocaine 66614622 Active 2022 JESSICA HALEY, [employer] [address], [address], [place], [address], [facility] [employer] [facility] 3 17:51:39 Homeless 22072470 Active 2022 JESSICA HALEY, [employer] [address], [address], [place], [address], [facility] [employer] [facility] 3 18:07:02 Asthenia 02530658 Active 2022 JESSICA HALEY, [facility] [address], [place], [address], [facility] [employer] [facility] 3 18:07:05 Bradycardia 09605665 Active 2022 JESSICA HALEY, [facility] [address], [address], [place], [address], [facility] [employer] 3 18:07:11 Laboratory test result abnormal 556134830 Active 2022 JESSICA HALEY, [employer] [address], [place], [address], [facility] [employer] 3 18:07:15 Problem Notes None recorded. Medical Equipment None Reported. Allergies Allergen ID Allergen Name Allergen Category Reaction Reaction Severity Criticality Documentation Date Start Date Code Code System Note Provider Name and Address Organization Details Recorded Time 88643 shellfish derived food,medi cation Not available Not available Not available 05/19/2020 Riri harman, [facility] [employer] [facility] 0 08:43:01 Medications Not known to be on any medication Vitals Date Recorded Heart rate Respiratory rate Body temperature Oxygen saturation Systolic And Diastolic Provider Name and Address Organization Details Last Updated DateTime 3 78 /min 18 /min 97.4 [degF] 99 % 115/67 mm[Hg] Dayana Sarmiento -Kierkla [address], [address], [place], [address], [facility] [employer] 3 10:21:31 Social History Question Answer Notes LastModified by Organizat ion Details LastModified Time Tobacco Smoking Status Current Every Day Smoker 2 a day MIKE REYNOLDS [address], [address], [place], [address], [facility] 07/19/2023 17:16:49 Do You Have An [...] Do You Have A Medical Power Of Refrigeration [place]? No Information not available 07/19/2023 What Was [...] anxious, or unable to sleep at night)? [id number] Information not available 07/19/2023 Family History Relationship [...] 25mcg/0.25 mL dose 2 completed Nicole harman [facility] 10/17/2023 11:43:55 [facility] 2 [facility] 14:21:00 Td (adult), 5 Lf tetanus toxoid, preservative free, adsorbed 7 completed Nicole harman [facility] 01/22/2024 14:21:20 Td (adult), 5 Lf tetanus toxoid, preservative free, adsorbed 8 completed Nicole harman [facility] 01/22/2024 14:21:35 pneumococcal polysaccharide PPV23 8 completed Nicole harman [facility] 01/22/2024 14:21:54 pneumococcal polysaccharide PPV23 6 completed Nicole harman [facility] 01/22/2024 14:22:04 Influenza, adjuvanted, quadrivalent, PF 3 completed Nicole harman [place] - [facility] [address] 01/22/2024 14:23:02 Past Encounters Encounter ID Performer Location Encounter Start Date Encounter Closed Date Diagnosis/Indication Diagnosis SNOMED-CT Code Diagnosis ICD10 Code Diagnosis IMO Codes Diagnosis Note [id number] MIKE Chen [facility] on [address] [place] [address] 05/19/2020 08:42:26 05/29/2020 13:18:57 Alcohol dependence 30981267 F10.288 Hx of withdrawal seizuresFo lic acid 1 mg dailyThiam ine 100 mg dailyPT OT eval and treat Sinus bradycardia 934086 05 R00.1 Implanted orthodontic lab technician in placeF/u with cardiology Monitor HR Asthma 413612750 J45.99 8 Monitor respirator y status Liver enzy mes level above reference range 120843896 R74.8 Secondary to heavy ETOH useRepeat and monitor [id number] Lois Multani MD [facility] on [address] [place] [address] 05/20/2020 07:06:00 05/29/2020 14:50:19 Alcohol dependence 23367670 F10.20 thiamine 100 mg dailyfolic acid 1 mg dailysocia l work fu to encourage ongoing support and treatment Asthenia 25668260 R53.1 PT/OTwill monitor Liver enzy mes level above reference range 227092022 R74.8 will monitor Sinus bradycardia 230013 05 R00.1 resolvedwi ll monitor [id number] MIKE Chen [facility] on [address] [place] [address] 05/26/2020 09:30:59 05/29/2020 13:59:21 Alcohol dependence 10254551 F10.288 Hx of withdrawal seizuresFo lic acid 1 mg dailyThiam ine 100 mg dailyNo sxs of withdrawal noted Sinus bradycardia 052913 05 R00.1 Implanted orthodontic lab technician in placeF/u with cardiology Monitor HR-ranges 58-88 Asthma 709350090 J45.99 8 Monitor respirator y statusOn no medication s [id number] MIKE Chen [facility] on [address] [place] [address] 06/12/2020 08:31:05 06/16/2020 10:01:54 Alcohol dependence 01316233 F10.288 Hx of withdrawal seizuresFo lic acid 1 mg dailyThiam ine 100 mg dailyNo signs of withdrawal currently Sinus bradycardia 377987 05 R00.1 Implanted orthodontic lab technician in placeF/u with cardiology Monitor HR Asthma 702758555 J45.99 8 Monitor respirator y status Liver enzy mes level above reference range 459512873 R74.8 Secondary to heavy ETOH useRepeat LFTs 06/15 [id number] Riri Espinal [facility] on [address] [place] [id number] 06/16/2020 11:47:30 06/18/2020 11:34:00 Alcohol dependence 54773218 F10.288 Hx of withdrawal seizuresFo lic acid 1 mg dailyThiam ine 100 mg dailyNo signs of withdrawal Encouraged to remain sober Sinus bradycardia 180471 05 R00.1 Implanted orthodontic lab technician in placeRemai ns asymptomat ic F/u with cardiology Asthma 271918809 J45.99 8 No respirator y issues currentlyF /u with PCP Liver enzy mes level above reference range 893661588 R74.8 Secondary to heavy ETOH useNow resolved [id number] JESSICA HALEY [facility] on [address] [place] [id number] 07/19/2023 15:26:02 07/27/2023 10:51:11 Laboratory test result abnormal 128417530 R89.9 In acute care rhabdo, hypokalemi a, transamini tis, hypomagnes emia , thrombocyt openia, normocytic , metabolic acidosis , normocytic anemia likely related to etoh abuse,,tx with IVF and supplement al replacemen tmonitor labs Alcohol dependence 68298 003 F10.288 hx seizures with withdrawal witnessed clonic tonic seizurestr eated with ativan and phenobarbi talencoura ged abstinence SUDs referralmo nitor for seizure activityco ntinue thiamine 100 mg qdfolate [address] 666 mg tid Bradycardia 55681817 R00 .1 Hx of syncope with implantabl e loop recorderSB in acute care with pausescard iology and EPS consulted- ILR interrogat ed, showed no correlatio n of syncope and pauses, no need for PPM. ILR removed.re commending PSG outpatient to r/o RAND- referral paced in [facility] Harmful pa ttern of use of cocaine 73426438 F14.10 refer to SUDsencour aged abstinence provide supportive services /refer to [facility] Homeless 50335541 Z59.00 director of social work for support and services Asthenia 00682645 R53.1 impaired gait/weakn essPT/OT evalMorse 10 Asthma 141483593 J45.99 8 hxnot currently on medication smonitor for resp/clini aldair changes [id number] Lois Multani MD [facility] on [address] [place] [id number] 07/21/2023 05:52:30 07/27/2023 11:40:25 Asthenia 66916860 R53.1 PT/OTwill monitor Alcohol dependence 41193 003 F10.288 thiamine 100 mg dailyfolic acid 1 mg dailyacamp rosate 666 mg tldsocial work fu to encourage ongoing support and treatment Bradycardia 27451699 R00 .1 not associated with syncopewil l monitor History of seizure due to alcohol withdrawal 2425024794 15531 Z86.69 completed withdrawal protocolwi ll monitor [id number] MIKE REYNOLDS [facility] on [address] [place] [address] 07/24/2023 09:10:19 07/31/2023 15:03:51 Alcohol dependence 82514923 F10.288 there has been no seizure activity reported. hx seizures with withdrawal witnessed clonic tonic seizurestr eated with ativan and phenobarbi talencoura ged abstinence SUDs referralmo nitor for seizure activityco ntinue thiamine 100 mg qdfolate [address] 666 mg tid Laboratory test result abnormal 628003030 R89.9 In acute care rhabdo, hypokalemi a, transamini tis, hypomagnes emia , thrombocyt openia, normocytic , metabolic acidosis , normocytic anemia likely related to etoh abuse,,tx with IVF and supplement al replacemen tmonitor labs Bradycardia 06936398 R00 .1 denies any cardiac sx today. apical rate 70 Hx of syncope with implantabl e loop recorderSB in acute care with pausescard iology and EPS consulted- ILR interrogat ed, showed no correlatio n of syncope and pauses, no need for PPM. ILR removed.re commending PSG outpatient to r/o RAND- referral paced in [facility] Harmful pa ttern of use of cocaine 04591850 F14.10 refer to SUDsencour aged abstinence provide supportive services /refer to Homeless 32904537 Z59.00 director of social work for support and services Asthenia 90643892 R53.1 plan for OTimpaired gait/weakn ess [place] 10 Asthma 935398067 J45.99 8 hxnot currently on medication smonitor for resp/clini aldair changes [id number] MIKE REYNOLDS [facility] on [address] [place] [id number] 07/26/2023 10:31:42 07/31/2023 15:13:33 Alcohol dependence 16728086 F10.288 there has been no seizure activity reported. hx seizures with withdrawal witnessed clonic tonic seizurestr eated with ativan and phenobarbi talencoura ged abstinence SUDs referralmo nitor for seizure activityco ntinue thiamine 100 mg qdfolate [address] 666 mg tid Bradycardia 68509421 R00 .1 HR 69Hx of syncope with implantabl e loop recorderSB in acute care with pausescard iology and EPS consulted- ILR interrogat ed, showed no correlatio n of syncope and pauses, no need for PPM. ILR removed.re commending PSG outpatient to r/o RAND- referral paced in [facility] Harmful pa ttern of use of cocaine 92250448 F14.10 refer to SUDsencour aged abstinence provide supportive services /refer to Homeless 38007148 Z59.00 director of social work for support and services Asthenia 90722301 R53.1 plan for OTimpaired gait/weakn ess10/11: he is ambulating with steady gait independen tly. Asthma 809405928 J45.99 8 hxnot currently on medication smonitor for resp/clini aldair changes [id number] MIKE REYNOLDS [facility] on [address] [place] [id number] 08/01/2023 09:31:41 08/08/2023 09:26:07 Alcohol dependence 21313418 F10.288 there has been no seizure activity reported. hx seizures with withdrawal witnessed clonic tonic seizurestr eated with ativan and phenobarbi talencoura ged abstinence SUDs referralmo nitor for seizure activityco ntinue thiamine 100 mg qdfolate [address] 666 mg tid Bradycardia 47761222 R00 .1 HR 69Hx of syncope with implantabl e loop recorderSB in acute care with pausescard iology and EPS consulted- ILR interrogat ed, showed no correlatio n of syncope and pauses, no need for PPM. ILR removed.re commending PSG outpatient to r/o RAND- referral paced in [facility] Harmful pa ttern of use of cocaine 88290732 F14.10 refer to SUDsencour aged abstinence provide supportive services /refer to Homeless 03188244 Z59.00 director of social work for support and services Asthenia 33730777 R53.1 plan for OTimpaired gait/weakn ess07/26: he is ambulating with steady gait independen tly. Asthma 048748838 J45.99 8 hxnot currently on medication smonitor for resp/clini aldair changes [id number] MIKE REYNOLDS [facility] on [address] [place] [address] 08/04/2023 08:03:49 08/08/2023 11:32:51 Alcohol dependence 53823441 F10.288 08/04: there has been no seizure activity reported. hx seizures with withdrawal witnessed clonic tonic seizurestr eated with ativan and phenobarbi talencoura ged abstinence SUDs referralmo nitor for seizure activityco ntinue thiamine 100 mg qdfolate [address] 666 mg tid Bradycardia 33810052 R00 .1 HR 69Hx of syncope with implantabl e loop recorderSB in acute care with pausescard iology and EPS consulted- ILR interrogat ed, showed no correlatio n of syncope and pauses, no need for PPM. ILR removed.re commending PSG outpatient to r/o RAND- referral paced in [facility] Harmful pa ttern of use of cocaine 93580035 F14.10 refer to SUDsencour aged abstinence provide supportive services /refer to Homeless 46786379 Z59.00 director of social work for support and services Asthenia 45808534 R53.1 plan for OTimpaired gait/weakn ess/: he is ambulating with steady gait independen tly.08/04: meeting goals with therapy, independen t with care. Asthma 910919044 J45.99 8 hxnot currently on medication smonitor for resp/clini aldair changes [id number] MIKE REYNOLDS [facility] on [address] [place] [id number] 08/10/2023 08:14:16 08/17/2023 15:56:48 Alcohol dependence 05001362 F10.288 hx seizures with withdrawal witnessed clonic tonic seizurestr eated with ativan and phenobarbi talencoura ged abstinence SUDs referralmo nitor for seizure activityco ntinue thiamine 100 mg qdfolate [address] 666 mg tid Bradycardia 67387721 R00 .1 Hx of syncope with implantabl e loop recorderSB in acute care with pausescard iology and EPS consulted- ILR interrogat ed, showed no correlatio n of syncope and pauses, no need for PPM. ILR removed.re commending PSG outpatient to r/o RAND- referral paced in [facility] Harmful pa ttern of use of cocaine 07320643 F14.10 refer to SUDsencour aged abstinence provide supportive services /refer to SW Homeless 55395097 Z59.00 director of social work for support and services Asthenia 93871851 R53.1 08/09/2023 : therapy goals met.He is independen t on on unit. Asthma 835299509 J45.99 8 hxnot currently on medication smonitor for resp/clini aldair changes [id number] MIKE REYNOLDS [facility] on [address] [place] [id number] 08/16/2023 07:01:21 08/18/2023 08:46:19 Alcohol dependence 34116151 F10.288 08/16: There has been no reported seizurehx seizures with withdrawal witnessed clonic tonic seizurestr eated with ativan and phenobarbi talencoura ged abstinence SUDs referralmo nitor for seizure activityco ntinue thiamine 100 mg qdfolate [address] 666 mg tid Asthma 165956581 J45.99 8 08/16: Denies any shortness of breath or resp. issuesnot currently on medication smonitor for resp/clini aldair changes [id number] Dayana Jerezjimena Blanchard [facility] on [address] [place] [address] 08/25/2023 10:10:49 08/28/2023 11:33:00 Alcohol dependence 11937986 F10.288 08/16: There has been no reported seizurehx seizures with withdrawal witnessed clonic tonic seizurestr eated with ativan and phenobarbi talencoura ged abstinence SUDs referralmo nitor for seizure activityco ntinue thiamine 100 mg qdfolate [address] 666 mg tid Asthma 131454316 J45.99 8 08/16: Denies any shortness of breath or resp. issuesnot currently on medication smonitor for resp/clini aldair changes Harmful pa ttern of use of cocaine 14501675 F14.10 follow up with outpatient carehas not used during SNF stay Homeless 32945005 Z59.00 discharge to correction Sinus bradycardia 957862 05 R00.1 resolved, HR 78 today Laboratory test result abnormal 540113000 R89.9 resolved, follow up with outpt PCP next week Health Concerns Section Related Observation LastModified by Organization Detai ls LastModified Time None Recorded Concern Status LastModified by Organization Details LastModified Time None Recorded Advance Directives Directive Y: Payers Insurance Date Sequence Insurance Name Policy Number Policy Hobbs Covered Member ID Hobbs Member ID Guarantor Name 03/21/2024 1 [place] [facility] [id number] [facility] Notes Date Note Type Note Provider Name and Address Organization Details Recorded Time 08/01/2023 text/html ROS as noted in the HPI Seen today for acute rounding visit. Past medical history remarkable for alcohol abuse dependency with withdrawal seizures, syncope with implantable loop recorder in place. Presented to [facility] on 07/08/23 from outside source with both unwitnessed and witnessed seizure; on arrival to ED he had another witnessed tonic clonic seizure associated with post ictal. He was treated with IV ativan and started on phenobarbital protocol. He was admitted for ETOH withdrawal, Rhabdo and and found to have sinus pauses. Evaluated by therapy for weakness, admitted to [facility] for continued care and rehab. On exam today he is stable, there is no acute nursing concerns. progressing toward therapy goals. MIKE REYNOLDS [address], [address], [place], [address], [facility] [employer] 08/01/2023 14:12:08 08/04/2023 text/html ROS as noted in the HPI Seen today for acute rounding visit. Past medical history remarkable for alcohol abuse dependency with withdrawal seizures, syncope with implantable loop recorder in place. Presented to [facility] on 07/08/23 from outside source with both unwitnessed and witnessed seizure; on arrival to ED he had another witnessed tonic clonic seizure associated with post ictal. He was treated with IV ativan and started on phenobarbital protocol. He was admitted for ETOH withdrawal, Rhabdo and and found to have sinus pauses. Evaluated by therapy for weakness, admitted to [facility] for continued care and rehab. He continue to be medically stable, he has been working with therapy, as of note he has progressed to independent for adl no adaptive device required. On exam he noted ambulating on unit with steady gait, he tells me that he is ok, there is no acute nursing concerns. MIKE REYNOLDS [address], [address], [place], [address], [facility] [employer] [facility] 08/04/2023 13:02:43 08/10/2023 text/html ROS as noted in the HPI Duarte is seen today for acute rounding visit. Past medical history of ETOH abuse with withdrawal seizures, cocaine abuse, asthma.He has been stable, he offers no complaints. There is no acute nursing concerns. 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 Past medical history of ETOH abuse with withdrawal seizures, cocaine abuse, asthma. Duarte is alert and verbal in NAD. He has been stable seen his last rounding visit, there is no complaints, there is no acute nursing concerns. MIKE REYNOLDS [address], [address], [place], [address], [facility] 08/16/2023 11:03:33 08/25/2023 text/html ROS as noted in the HPI Duarte is seen today for discharge. Past medical history of ETOH abuse with withdrawal seizures, cocaine abuse, asthma. Duarte is alert and verbal in NAD. He has been stable seen his last rounding visit, there is no complaints, there is no acute nursing concerns. Dayana valle [address], [address], [place], [address], [facility] 08/25/2023 10:26:05
--- OUTSIDE RECORDS SUMMARY | 2025-09-25 23:34 | XMS_ITS | Encounter Summary ---
Author Organization [facility] Address [address] [place] [address] Phone Care Team Providers Care Branch Lead Name Role Phone Ramin Arnold MD Primary Care Provider [phone] Encounter Details Date Type Department Care Team ([facility] st Contact Info) Description 11/16/2024 Ophth Exam AMANDA Consult from [address] [address] Lit Price MD [address] [place] [id number] [email or web address] Social History Tobacco [...] 11/16/2024 5:00 PM Ju Hines RN * [place] Suicide Severity Rating Scale (Screener/Recent Self-Report) Question [...] on filedocumented in this encounter Care Teams Branch Lead Relationship Specialty Start Date End Date Ramin Arnold MD [email or web address] PCP - General Family Medicine 05/19/20 documented as of this encounter Additional Source Comments The information contained in this document represents components of the legal health record. It is not the complete legal health record.[facility]
--- OUTSIDE RECORDS SUMMARY | 2025-09-25 23:34 | XMS_ITS | Clinical Summary ---
Author Organization [facility] it Address [address] [place] [address] Care Team Providers Care Band Head Saw Operator Name Role Phone Unavailable Primary Care [...]
--- OUTSIDE RECORDS SUMMARY | 2025-09-25 23:34 | XMS_ITS | Encounter Summary ---
Author Organization [facility] Address [address] [place] [address] Phone Care Team Providers Care Software Manager Name Role Phone Ramin Arnold MD Primary Care Provider [phone] Encounter Details Date Type Department Care Team (Late st Contact Info) Description 05/21/2020 Transcribe Orders [facility] Specimen Processing [address] [place] [address] aRmin Arnold MD [address] [place] [address] [address] [place] [address] [email or web address] COVID-19 ruled out (Primary Dx) Social History [...] 5:36 PM EDT) Specimen Source NASOPHARYNGEAL SWAB (AWS DEVELOPER) [facility] COVID Testing Status Sent to [facility] Other 05/21/2020 5:36 PM EDT 05/21/2020 5:47 PM EDT us Ramin Arnold MD LAB GENERAL ORDERABLES Final Res ult [facility] [address] [place] [address] documented in this encounter Visit Diagnoses Diagnosis COVID-19 ruled out- Primary documented in this encounter Additional Health Concerns Infection Onset Date Last Indicated Resolved Time CoV-Exposed Comment:Recent close contact 05/21/2020 05/21/2020 06/04/2020 1:23 AM EDT CoV-Exposed Comment:Recent close contact 06/04/2020 06/04/2020 06/18/2020 1:24 AM EDT CoV-Exposed Comment:Recent close contact 08/26/2020 08/26/2020 09/09/2020 1:24 AM EST documented as of this encounter Care Teams Software Manager Relationship Specialty Start Date End Date Ramin Arnold MD [email or web address] PCP - General Family Medicine 05/19/20 documented as of this encounter Additional Source Comments The information contained in this document represents components of the legal health record. It is not the complete legal health record.[facility]
--- OUTSIDE RECORDS SUMMARY | 2025-09-25 23:34 | XMS_ITS | Encounter Summary ---
Author Organization [facility] Address [address] [place] [address] Phone Care Team Providers Care Ring Making Machine Operator Name Role Phone Ramin Arnold MD Primary Care Provider [phone] Encounter Details Date Type Department Care Team (Late st Contact Info) Description 11/16/2024 Procedure Pass [facility] [place] [place], [address] [facility], [address], [address] [place] [address] Social History Tobacco Use Types Packs/Day Years [...] 11/16/2024 5:00 PM Ju Hines RN * [place] Suicide Severity Rating Scale (Screener/Recent Self-Report) Question [...] on filedocumented in this encounter Care Teams Ring Making Machine Operator Relationship Specialty Start Date End Date Ramin Arnold MD PCP - General Family Medicine 05/19/20 documented as of this encounter Additional Source Comments The information contained in this document represents components of the legal health record. It is not the complete legal health record.[facility]
--- OUTSIDE RECORDS SUMMARY | 2025-09-25 23:34 | XMS_ITS | Encounter Summary ---
Author Organization [facility] Address [address] [place] [address] Phone Care Team Providers Care Deployment Specialist Name Role Phone Ramin Arnold MD Primary Care Provider [phone] Encounter Details Date Type Department Care Team (Late st Contact Info) Description 11/17/2024 Procedure Pass [facility] [address] PERIOP DEPT [address] [place] [address] Social History Tobacco Use Types Packs/Day Years [...] on filedocumented in this encounter Care Teams Deployment Specialist Relationship Specialty Start Date End Date Ramin Arnold MD [email or web address] PCP - General Family Medicine 05/19/20 documented as of this encounter Additional Source Comments The information contained in this document represents components of the legal health record. It is not the complete legal health record.[facility]
--- OUTSIDE RECORDS SUMMARY | 2025-09-25 23:34 | XMS_ITS | Encounter Summary ---
Author Organization [facility] Address [address] [place] [address] Phone Care Team Providers Care Therapeutic Recreation Assistant Name Role Phone Ramin Arnold MD Primary Care Provider [phone] Encounter Details Date Type Department Care Team (Late st Contact Info) Description 11/16/2024 Ophth Exam AMANDA Oph Trauma Main [place] [address] [place] [address] Laurence Coelho MD [address] [place] [phone] [email or web address] Social History Tobacco Use [...] 11/16/2024 5:00 PM Ju Hines RN * [place] Suicide Severity Rating Scale (Screener/Recent Self-Report) Question [...] on filedocumented in this encounter Care Teams Therapeutic Recreation Assistant Relationship Specialty Start Date End Date Ramin Arnold MD [email or web address] PCP - General Family Medicine 05/19/20 documented as of this encounter Additional Source Comments The information contained in this document represents components of the legal health record. It is not the complete legal health record.[facility]
--- OUTSIDE RECORDS SUMMARY | 2025-09-25 23:34 | XMS_ITS | Encounter Summary ---
Author Organization [facility] Address [address] [place] [address] Phone Care Team Providers Care Attic Fans Mechanic Name Role Phone Ramin Arnold MD Primary Care Provider Encounter Details Date Type Department Care Team (Late st Contact Info) Description 11/19/2024 Ophth Exam AMANDA Oph Trauma Main [place] [address] [place] [address] Laurence Coelho MD [address] [place] [address] [email or web address] Social History Tobacco [...] on filedocumented in this encounter Care Teams Attic Fans Mechanic Relationship Specialty Start Date End Date Ramin Arnold MD [email or web address] PCP - General Family Medicine 05/19/20 documented as of this encounter Additional Source Comments The information contained in this document represents components of the legal health record. It is not the complete legal health record.[facility]
--- OUTSIDE RECORDS SUMMARY | 2025-09-25 23:34 | XMS_ITS | Clinical Summary ---
Author Organization [facility] Address [address] [place] [address] Phone Care Team Providers Care High School Social Studies Tutor Name Role Phone Ramin Arnold MD Primary Care Provider [phone] Allergies Active Allergy Reactions Criticality Noted Date [...] Advance Directives For more information, please contact: [phone] (9AM - 5PM Sil/[facility], Monday-Monday) * Full Code (Latest Code Status on File) Date Activated Date Inactivated Comments 11/16/2024 5:47 PM Question Answer Comments Code Status Confirmed With: Patient * Full Code Date Activated Date Inactivated Comments 11/16/2024 5:45 PM 11/16/2024 5:47 PM Question Answer Comments Code Status Confirmed With: Other (specify below ) Care Teams High School Social Studies Tutor Relationship Specialty Start Date End Date Ramin Arnold MD [email or web address] PCP - General Family Medicine 05/19/20 Additional Source Comments The information contained in this document represents components of the legal health record. It is not the complete legal health record.[facility]
[2025-09-26 00:28] VITALS: BP 110/59; PULSE 90; RESP 16; TEMP 37; O2SAT 93
[2025-09-26 07:04] VITALS: BP 103/61; PULSE 57; RESP 16; TEMP 37; O2SAT 96
[2025-09-26 09:21] VITALS: BP 103/61; PULSE 57; RESP 16; TEMP 37; O2SAT 96
== END 2025-09-26 09:22 | disposition home or self-care (01) ==
PROVIDERS: Emergency Provider Student in an Organized Health Care Education/Training Program
DX: F10.920 Alcohol use, unspecified with intoxication, uncomplicated (principal); Y90.8 Blood alcohol level of 240 mg/100 ml or more; R45.851 Suicidal ideations; Z51.81 Encounter for therapeutic drug level monitoring
CPT/HCPCS: 36415; 80307; 99284; 99285; S9485

== ENCOUNTER 2025-09-27 17:41 | Emergency (ER) | payer MEDICAID, SELFPAY ==
--- NOTE | ~2025-09-27 | XR_ITS ---
CLINICAL HISTORY: fall with tenderness of lumbar spine 3 views lumbar spine Comparison: CT/SR - CT LUMBAR SPINE WO IV CON - 08/28/25 02:45 EST Findings: Normal vertebral body alignment. No acute fractures or dislocation. No significant degenerative change. Abdominopelvic bowel-gas pattern is unremarkable. IMPRESSION: No acute findings. This document has been electronically signed by: Johnathon Brown MD on 09/27/2025 21:53:29
--- NOTE | ~2025-09-27 | CT_ITS ---
CLINICAL HISTORY: fall with headstrike CT head without contrast Comparison: CT/REG/SR - CT HEAD/BRAIN WO IV CON - 09/23/25 20:49 EST Findings: No intra-axial mass, midline shift, hydrocephalus, or acute hemorrhage. Parenchymal atrophy advanced for age. No significant white matter disease. Encephalomalacia in the right frontal lobe. The visualized paranasal sinuses and mastoid air cells are normal. The orbits are unremarkable. There is no acute fracture. Stable circular density in the soft tissues outside of the right temporal bone. IMPRESSION: No acute intracranial findings. This document has been electronically signed by: Johnathon Brown MD on 09/27/2025 22:03:02
--- NOTE | ~2025-09-27 | CT_ITS ---
CLINICAL HISTORY: fall with headstrike and pain CT cervical spine without contrast Comparison: CT/SR - CT CERVICAL SPINE WO IV CON - 09/23/25 20:49 EST Findings: Normal vertebral body alignment. No significant degenerative change. No acute fractures or dislocations. No acute findings on limited view of the intracranial contents. Soft tissues of the neck are normal. Lung apices are clear. IMPRESSION: No acute findings. No significant change from 09/23/2025. This document has been electronically signed by: Johnathon Brown MD on 09/27/2025 22:07:20
[2025-09-27 17:43] VITALS: BP 127/85; PULSE 100; PULSE 81; RESP 16; TEMP 36.3; O2SAT 96; BMI 28.1
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
[2025-09-27 18:06] VITALS: RESP 14
--- NOTE | 2025-09-27 18:08 | PC.NURSE ---
Duarte presents to the ED today reporting SI without a plan, increasing alcohol and drug use as well. pt endorses drinking a ton today . Pt endorses cocaine use but not for a couple days . Pt is unsteady on his feet upon arrival, requiring staff to assist him to standing. Pt provided with food per request. Calm and cooperative, no apparent distress is noted at this time. Pt is aware of plan of care for medical clearance and care team evaluation
[2025-09-27 18:53] LABS: Alanine Aminotransferase 67 U/L (0-40); Albumin Level 4.1 g/dL (3.5-5.0); Alkaline Phosphatase 94 U/L (39-117); Anion Gap 14 (12-20); Aspartate Amino Transferase 121 U/L (5-37); Blood Urea Nitrogen 8 mg/dL (9-16); Calcium 8.3 mg/dL (8.4-10.2); Carbon Dioxide 27 mmol/L (22-29); Chloride 109 mmol/L (96-108); Creatinine Clr Calc Pharmacy 177.9; Estimated Glomerular Filt Rate > 60; Potassium 3.3 mmol/L (3.3-5.1); Sodium 147 mmol/L (135-145); Total Protein 8.1 g/dL (6.5-8.0)
[2025-09-27 18:59] LABS: Hematocrit 35.2 % (42.0-52.0); Hemoglobin 11.6 g/dl (14.0-18.0); Imm Gran Abs Auto 0.01 X10*3/uL (0.00-0.03); Imm Gran Pct Auto 0.4 % (0.0-0.4); Lymphocytes Absolute Auto 1.2 X10*3/uL (1.2-4.9); MANUAL DIFF FLAG SCAN; Mean Corpuscular HGB Conc 33.0 g/dl (31.0-36.0); Mean Corpuscular Hemoglobin 32.1 pg (27.0-33.0); Mean Corpuscular Volume 97.5 fL (80.0-98.0); NRBC Abs Auto 0.000 X10*3/uL (0.0-0.012); NRBC Pct Auto 0.0 /100WBC (0.0-0.2); Platelet Count 126 X10*3/uL (160-400); Red Blood Count 3.61 X10*6/uL (4.60-5.80); SCAN SMEAR FLAG 1; White Blood Count 2.4 X10*3/uL (4.8-10.8)
--- OUTSIDE RECORDS SUMMARY | 2025-09-27 19:22 | XMS_ITS | Encounter Summary ---
Author Organization [facility] Address [address] [place] [address] Phone Care Team Providers Care Coke Crane Operator Name Role Phone Ramin Arnold MD Primary Care Provider [phone] Encounter Details Date Type Department Care Team (Late st Contact Info) Description 05/21/2020 Transcribe Orders [facility] Specimen Processing [address] [place] [address] Ramin Arnold MD [address] [place] [address] [address] [place] [address] [email or web address] COVID-19 ruled out (Primary Dx) Social History [...] 5:36 PM EDT) Specimen Source NASOPHARYNGEAL SWAB (ORDER PICKER/ASSEMBLER) [facility] COVID Testing Status Sent to [facility] Other 05/21/2020 5:36 PM EDT 05/21/2020 5:47 PM EDT us Ramin Arnold MD LAB GENERAL ORDERABLES Final Res ult [facility] [address] [place] [address] documented in this encounter Visit Diagnoses Diagnosis COVID-19 ruled out- Primary documented in this encounter Additional Health Concerns Infection Onset Date Last Indicated Resolved Time CoV-Exposed Comment:Recent close contact 05/21/2020 05/21/2020 06/04/2020 1:23 AM EDT CoV-Exposed Comment:Recent close contact 06/04/2020 06/04/2020 06/18/2020 1:24 AM EDT CoV-Exposed Comment:Recent close contact 08/26/2020 08/26/2020 09/09/2020 1:24 AM EST documented as of this encounter Care Teams Coke Crane Operator Relationship Specialty Start Date End Date Ramin Arnold MD [email or web address] PCP - General Family Medicine 05/19/20 documented as of this encounter Additional Source Comments The information contained in this document represents components of the legal health record. It is not the complete legal health record.[facility]
--- OUTSIDE RECORDS SUMMARY | 2025-09-27 19:22 | XMS_ITS | Encounter Summary ---
Author Organization [facility] Address [address] [place] [address] Phone Care Team Providers Care It Support Specialist Name Role Phone Ramin Arnold MD Primary Care Provider [phone] Encounter Details Date Type Department Care Team ([facility] st Contact Info) Description 11/16/2024 Ophth Exam AMANDA Consult from [address] [address] Lit Price MD [address] [place] [address] [email or web address] Social History Tobacco Use Types Packs/Day Years [...] 11/16/2024 5:00 PM Ju Hines RN * [place] Suicide Severity Rating Scale (Screener/Recent Self-Report) Question [...] on filedocumented in this encounter Care Teams It Support Specialist Relationship Specialty Start Date End Date Ramin Arnold MD [email or web address] PCP - General Family Medicine 05/19/20 documented as of this encounter Additional Source Comments The information contained in this document represents components of the legal health record. It is not the complete legal health record.[facility]
--- OUTSIDE RECORDS SUMMARY | 2025-09-27 19:22 | XMS_ITS | Clinical Summary ---
Author Organization [facility] Address [address] [place] [address] Phone Care Team Providers Care Astrophysics Professor Name Role Phone Ramin Arnold MD Primary Care Provider [phone] Allergies Active Allergy Reactions Criticality Noted Date [...] Advance Directives For more information, please contact: [phone] (9AM - 5PM Sil/[facility], Monday-Monday) * Full Code (Latest Code Status on File) Date Activated Date Inactivated Comments 11/16/2024 5:47 PM Question Answer Comments Code Status Confirmed With: Patient * Full Code Date Activated Date Inactivated Comments 11/16/2024 5:45 PM 11/16/2024 5:47 PM Question Answer Comments Code Status Confirmed With: Other (specify below ) Care Teams Astrophysics Professor Relationship Specialty Start Date End Date Ramin Arnold MD [email or web address] PCP - General Family Medicine 05/19/20 Additional Source Comments The information contained in this document represents components of the legal health record. It is not the complete legal health record.[facility]
--- OUTSIDE RECORDS SUMMARY | 2025-09-27 19:22 | XMS_ITS | Encounter Summary ---
Author Organization [facility] Address [address] [place] [address] Phone Care Team Providers Care Purchaser Automotive Parts Name Role Phone Ramin Arnold MD Primary Care Provider Encounter Details Date Type Department Care Team (Late st Contact Info) Description 11/16/2024 Procedure Pass [facility] [place], [address] [facility], [address] [place] [address] Social History Tobacco Use Types Packs/Day Years [...] 11/16/2024 5:00 PM Ju Hines RN * [place] Suicide Severity Rating Scale (Screener/Recent Self-Report) Question [...] on filedocumented in this encounter Care Teams Purchaser Automotive Parts Relationship Specialty Start Date End Date Ramin Arnold MD PCP - General Family Medicine 05/19/20 documented as of this encounter Additional Source Comments The information contained in this document represents components of the legal health record. It is not the complete legal health record.[facility]
--- OUTSIDE RECORDS SUMMARY | 2025-09-27 19:22 | XMS_ITS | Encounter Summary ---
Author Organization [facility] Address [address] [place] [address] Phone Care Team Providers Care Baby Formula Mixer Name Role Phone Ramin Arnold MD Primary Care Provider [phone] Encounter Details Date Type Department Care Team (Late st Contact Info) Description 11/19/2024 Ophth Exam AMANDA Oph Trauma Main [place] [address] [place] [address] Laurence Coelho MD [address] [place] [address] [email or web address] Social History Tobacco Use Types [...] on filedocumented in this encounter Care Teams Baby Formula Mixer Relationship Specialty Start Date End Date Ramin Arnold MD [email or web address] PCP - General Family Medicine 05/19/20 documented as of this encounter Additional Source Comments The information contained in this document represents components of the legal health record. It is not the complete legal health record.[facility]
--- OUTSIDE RECORDS SUMMARY | 2025-09-27 19:22 | XMS_ITS | Encounter Summary ---
Author Organization [facility] Address [address] [place] [address] Phone Care Team Providers Care Roller Stainer Name Role Phone Ramin Arnold MD Primary Care Provider [phone] Encounter Details Date Type Department Care Team (Late st Contact Info) Description 11/17/2024 Procedure Pass AMANDA 6TH FL PERIOP DEPT [address] [place] [address] Social History Tobacco Use Types Packs/Day Years [...] on filedocumented in this encounter Care Teams Roller Stainer Relationship Specialty Start Date End Date Ramin Arnold MD [email or web address] PCP - General Family Medicine 05/19/20 documented as of this encounter Additional Source Comments The information contained in this document represents components of the legal health record. It is not the complete legal health record.[facility]
--- OUTSIDE RECORDS SUMMARY | 2025-09-27 19:22 | XMS_ITS | Clinical Summary ---
Author Organization [facility] it Address [address] [place] [address] Care Team Providers Care Pipe Insulator Helper Name Role Phone Unavailable Primary Care Provider [...]
--- OUTSIDE RECORDS SUMMARY | 2025-09-27 19:22 | XMS_ITS | Encounter Summary ---
Author Organization [facility] Address [address] [place] [address] Phone Care Team Providers Care Billet Checker Name Role Phone Ramin Arnold MD Primary Care Provider [phone] Encounter Details Date Type Department Care Team (Late st Contact Info) Description 11/16/2024 Ophth Exam [facility] [address] [place] [address] Laurence Coelho MD [address] [place] [id number] [email or web address] Social History Tobacco Use Types Packs/Day [...] 11/16/2024 5:00 PM Ju Hines RN * [place] Suicide Severity Rating Scale (Screener/Recent Self-Report) Question [...] on filedocumented in this encounter Care Teams Billet Checker Relationship Specialty Start Date End Date Ramin Arnold MD [email or web address] PCP - General Family Medicine 05/19/20 documented as of this encounter Additional Source Comments The information contained in this document represents components of the legal health record. It is not the complete legal health record.[facility]
--- OUTSIDE RECORDS SUMMARY | 2025-09-27 19:22 | XMS_ITS | Data Portability ---
Author Organization [facility], Main Office Address [address] [place] [address] Care Team Providers Care Gravity Manager Name Role Phone [facility] OTHER Assessment Encounter Date [...] Address Organization Details Recorded Time Alcohol dependence 30933902 Active 2019 Riri harman, [facility] 0 10:55:15 Alcohol dependence 58823790 Active 2019 Riri Espinal null, [facility] 0 10:55:21 Sinus bradycardia 55525060 Active 2019 Riri harman, [facility] 0 10:55:22 Asthma 059858586 Active 2019 Riri harman, [facility] [employer] [facility] 0 10:55:25 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 2022 JESSICA HALEY, PILOT SUBMERSIBLE [address], [place], [address], [facility] [employer] [facility] 3 17:51:39 Homeless 62727986 Active 2022 JESSICA HALEY, PILOT SUBMERSIBLE [address], [place], [address], [facility] [employer] [facility] 3 18:07:02 Asthenia 84237107 Active 2022 JESSICA HALEY, [facility] [address], [place], [address], [facility] [employer] [facility] 3 18:07:05 Bradycardia 45580053 Active 2022 JESSICA HALEY, [facility] [address], [address], [place], [address], [facility] [employer] 3 18:07:11 Laboratory test result abnormal 424638670 Active 2022 JESSICA HALEY, P[employer] SU[employer]IBLE [address], [place], [address], [facility] [employer] 3 18:07:15 Problem Notes None recorded. Medical Equipment None Reported. Allergies Allergen ID Allergen Name Allergen Category Reaction Reaction Severity Criticality Documentation Date Start Date Code Code System Note Provider Name and Address Organization Details Recorded Time 57942 shellfish derived food,medi cation Not available Not available Not available 05/19/2020 Riri harman, [facility] [employer] [facility] 0 08:43:01 Medications Not known to be on any medication Vitals Date Recorded Heart rate Respiratory rate Body temperature Oxygen saturation Systolic And Diastolic Provider Name and Address Organization Details Last Updated DateTime 3 78 /min 18 /min 97.4 [degF] 99 % 115/67 mm[Hg] Dayana Sarmiento -Kierkla [address], [place], [address], [facility] [employer] 3 10:21:31 Social History Question Answer Notes LastModified by Organizat ion Details LastModified Time Tobacco Smoking Status Current Every Day Smoker 2 a day MIKE REYNOLDS [address], [address], [place], [address], [facility] 07/19/2023 17:16:49 Do You Have An [...] Do You Have A Medical Power Of Ticketing Clerk? No Information not available 07/19/2023 What [...] anxious, or unable to sleep at night)? [id number] Information not available 07/19/2023 Family History Relationship [...] dose 2 completed Nicole harman [facility] 10/17/2023 11:43:55 [facility] 14:21:00 Td (adult), 5 Lf tetanus toxoid, preservative free, adsorbed 7 completed Nicole harman [facility] 01/22/2024 14:21:20 Td (adult), 5 Lf tetanus toxoid, preservative free, adsorbed 8 completed Nicole harman [facility] 01/22/2024 14:21:35 pneumococcal polysaccharide PPV23 8 completed Nicole harman [facility] 01/22/2024 14:21:54 pneumococcal polysaccharide PPV23 6 completed Nicole harman [facility] 01/22/2024 14:22:04 Influenza, adjuvanted, quadrivalent, PF 3 completed Nicole harman [place] [facility] 01/22/2024 14:23:02 Past Encounters Encounter ID Performer Location Encounter Start Date Encounter Closed Date Diagnosis/Indication Diagnosis SNOMED-CT Code Diagnosis ICD10 Code Diagnosis IMO Codes Diagnosis Note [id number] MIKE Chen [facility] on [address] [place] [address] 05/19/2020 08:42:26 05/29/2020 13:18:57 Alcohol dependence 17990254 F10.288 Hx of withdrawal seizuresFo lic acid 1 mg dailyThiam ine 100 mg dailyPT OT eval and treat Sinus bradycardia 415309 05 R00.1 Implanted hospital monitor in placeF/u with cardiology Monitor HR Asthma 073756066 J45.99 8 Monitor respirator y status Liver enzy mes level above reference range 160698635 R74.8 Secondary to heavy ETOH useRepeat and monitor [id number] Lois Multani MD [facility] on [address] [place] [address] 05/20/2020 07:06:00 05/29/2020 14:50:19 Alcohol dependence 24860727 F10.20 thiamine 100 mg dailyfolic acid 1 mg dailysocia l work fu to encourage ongoing support and treatment Asthenia 49755633 R53.1 PT/OTwill monitor Liver enzy mes level above reference range 481651436 R74.8 will monitor Sinus bradycardia 917291 05 R00.1 resolvedwi ll monitor [id number] MIKE Chen [facility] on [address] [place] [address] 05/26/2020 09:30:59 05/29/2020 13:59:21 Alcohol dependence 07632167 F10.288 Hx of withdrawal seizuresFo lic acid 1 mg dailyThiam ine 100 mg dailyNo sxs of withdrawal noted Sinus bradycardia 218497 05 R00.1 Implanted hospital monitor in placeF/u with cardiology Monitor HR-ranges 58-88 Asthma 355170609 J45.99 8 Monitor respirator y statusOn no medication s [id number] MIKE Chen [facility] on [address] [place] [address] 06/12/2020 08:31:05 06/16/2020 10:01:54 Alcohol dependence 65263282 F10.288 Hx of withdrawal seizuresFo lic acid 1 mg dailyThiam ine 100 mg dailyNo signs of withdrawal currently Sinus bradycardia 923830 05 R00.1 Implanted hospital monitor in placeF/u with cardiology Monitor HR Asthma 641103897 J45.99 8 Monitor respirator y status Liver enzy mes level above reference range 704703965 R74.8 Secondary to heavy ETOH useRepeat LFTs 06/15 [id number] Riri Espinal [facility] on [address] [place] [address] 06/16/2020 11:47:30 06/18/2020 11:34:00 Alcohol dependence 44982777 F10.288 Hx of withdrawal seizuresFo lic acid 1 mg dailyThiam ine 100 mg dailyNo signs of withdrawal Encouraged to remain sober Sinus bradycardia 474724 05 R00.1 Implanted hospital monitor in placeRemai ns asymptomat ic F/u with cardiology Asthma 778868179 J45.99 8 No respirator y issues currentlyF /u with PCP Liver enzy mes level above reference range 363007812 R74.8 Secondary to heavy ETOH useNow resolved [id number] JESSICA HALEY [facility] on [address] [place] [address] 07/19/2023 15:26:02 07/27/2023 10:51:11 Laboratory test result abnormal 322558414 R89.9 In acute care rhabdo, hypokalemi a, transamini tis, hypomagnes emia , thrombocyt openia, normocytic , metabolic acidosis , normocytic anemia likely related to etoh abuse,,tx with IVF and supplement al replacemen tmonitor labs Alcohol dependence 38283 003 F10.288 hx seizures with withdrawal witnessed clonic tonic seizurestr eated with ativan and phenobarbi talencoura ged abstinence SUDs referralmo nitor for seizure activityco ntinue thiamine 100 mg qdfolate [address] 666 mg tid Bradycardia 14379764 R00 .1 Hx of syncope with implantabl e loop recorderSB in acute care with pausescard iology and EPS consulted- ILR interrogat ed, showed no correlatio n of syncope and pauses, no need for PPM. ILR removed.re commending PSG outpatient to r/o RAND- referral paced in PCC Harmful pa ttern of use of cocaine 37318764 F14.10 refer to SUDsencour aged abstinence provide supportive services /refer to [facility] Homeless 41483835 Z59.00 social media campaign manager for support and services Asthenia 49154975 R53.1 impaired gait/weakn essPT/OT evalMorse 10 Asthma 558282672 J45.99 8 hxnot currently on medication smonitor for resp/clini aldair changes [id number] Lois Multani MD [facility] on [address] [place] [address] 07/21/2023 05:52:30 07/27/2023 11:40:25 Asthenia 51539555 R53.1 PT/OTwill monitor Alcohol dependence 79783 003 F10.288 thiamine 100 mg dailyfolic acid 1 mg dailyacamp rosate 666 mg tldsocial work fu to encourage ongoing support and treatment Bradycardia 42835644 R00 .1 not associated with syncopewil l monitor History of seizure due to alcohol withdrawal 3635513198 39291 Z86.69 completed withdrawal protocolwi ll monitor [id number] MIKE REYNOLDS [facility] on [address] [place] [address] 07/24/2023 09:10:19 07/31/2023 15:03:51 Alcohol dependence 28918601 F10.288 there has been no seizure activity reported. hx seizures with withdrawal witnessed clonic tonic seizurestr eated with ativan and phenobarbi talencoura ged abstinence SUDs referralmo nitor for seizure activityco ntinue thiamine 100 mg qdfolate [address] 666 mg tid Laboratory test result abnormal 250532758 R89.9 In acute care rhabdo, hypokalemi a, transamini tis, hypomagnes emia , thrombocyt openia, normocytic , metabolic acidosis , normocytic anemia likely related to etoh abuse,,tx with IVF and supplement al replacemen tmonitor labs Bradycardia 43791007 R00 .1 denies any cardiac sx today. apical rate 70 Hx of syncope with implantabl e loop recorderSB in acute care with pausescard iology and EPS consulted- ILR interrogat ed, showed no correlatio n of syncope and pauses, no need for PPM. ILR removed.re commending PSG outpatient to r/o RAND- referral paced in PSYCHIATRIC Harmful pa ttern of use of cocaine 29904333 F14.10 refer to SUDsencour aged abstinence provide supportive services /refer to Homeless 04887630 Z59.00 social media campaign manager for support and services Asthenia 40808980 R53.1 plan for OTimpaired gait/weakn ess Pineda 10 Asthma 123411405 J45.99 8 hxnot currently on medication smonitor for resp/clini aldair changes [id number] MIKE REYNOLDS [facility] on [address] [place] [address] 07/26/2023 10:31:42 07/31/2023 15:13:33 Alcohol dependence 20057210 F10.288 there has been no seizure activity reported. hx seizures with withdrawal witnessed clonic tonic seizurestr eated with ativan and phenobarbi talencoura ged abstinence SUDs referralmo nitor for seizure activityco ntinue thiamine 100 mg qdfolate [address] 666 mg tid Bradycardia 00422739 R00 .1 HR 69Hx of syncope with implantabl e loop recorderSB in acute care with pausescard iology and EPS consulted- ILR interrogat ed, showed no correlatio n of syncope and pauses, no need for PPM. ILR removed.re commending PSG outpatient to r/o RAND- referral paced in PSYCHIATRIC Harmful pa ttern of use of cocaine 62782040 F14.10 refer to SUDsencour aged abstinence provide supportive services /refer to Homeless 76109006 Z59.00 social media campaign manager for support and services Asthenia 85806410 R53.1 plan for OTimpaired gait/weakn ess10/11: he is ambulating with steady gait independen tly. Asthma 755649699 J45.99 8 hxnot currently on medication smonitor for resp/clini aldair changes [id number] MIKE REYNOLDS [facility] on [address] [place] [address] 08/01/2023 09:31:41 08/08/2023 09:26:07 Alcohol dependence 13307820 F10.288 there has been no seizure activity reported. hx seizures with withdrawal witnessed clonic tonic seizurestr eated with ativan and phenobarbi talencoura ged abstinence SUDs referralmo nitor for seizure activityco ntinue thiamine 100 mg qdfolate [address] 666 mg tid Bradycardia 90314062 R00 .1 HR 69Hx of syncope with implantabl e loop recorderSB in acute care with pausescard iology and EPS consulted- ILR interrogat ed, showed no correlatio n of syncope and pauses, no need for PPM. ILR removed.re commending PSG outpatient to r/o RAND- referral paced in PSYCHIATRIC Harmful pa ttern of use of cocaine 48822066 F14.10 refer to SUDsencour aged abstinence provide supportive services /refer to Homeless 45396980 Z59.00 social media campaign manager for support and services Asthenia 12404681 R53.1 plan for OTimpaired gait/weakn ess07/26: he is ambulating with steady gait independen tly. Asthma 516601536 J45.99 8 hxnot currently on medication smonitor for resp/clini aldair changes [id number] MIKE REYNOLDS [facility] on [address] [place] [address] 08/04/2023 08:03:49 08/08/2023 11:32:51 Alcohol dependence 24603892 F10.288 08/04: there has been no seizure activity reported. hx seizures with withdrawal witnessed clonic tonic seizurestr eated with ativan and phenobarbi talencoura ged abstinence SUDs referralmo nitor for seizure activityco ntinue thiamine 100 mg qdfolate [address] 666 mg tid Bradycardia 99153627 R00 .1 HR 69Hx of syncope with implantabl e loop recorderSB in acute care with pausescard iology and EPS consulted- ILR interrogat ed, showed no correlatio n of syncope and pauses, no need for PPM. ILR removed.re commending PSG outpatient to r/o RAND- referral paced in PSYCHIATRIC Harmful pa ttern of use of cocaine 90610563 F14.10 refer to SUDsencour aged abstinence provide supportive services /refer to Homeless 87824587 Z59.00 social media campaign manager for support and services Asthenia 90920045 R53.1 plan for OTimpaired gait/weakn ess/: he is ambulating with steady gait independen tly.08/04: meeting goals with therapy, independen t with care. Asthma 071935288 J45.99 8 hxnot currently on medication smonitor for resp/clini aldair changes [id number] MIKE REYNOLDS [facility] on [address] [place] [address] 08/10/2023 08:14:16 08/17/2023 15:56:48 Alcohol dependence 89482889 F10.288 hx seizures with withdrawal witnessed clonic tonic seizurestr eated with ativan and phenobarbi talencoura ged abstinence SUDs referralmo nitor for seizure activityco ntinue thiamine 100 mg qdfolate [address] 666 mg tid Bradycardia 04100295 R00 .1 Hx of syncope with implantabl e loop recorderSB in acute care with pausescard iology and EPS consulted- ILR interrogat ed, showed no correlatio n of syncope and pauses, no need for PPM. ILR removed.re commending PSG outpatient to r/o RAND- referral paced in PCC Harmful pa ttern of use of cocaine 80092461 F14.10 refer to SUDsencour aged abstinence provide supportive services /refer to SW Homeless 54919886 Z59.00 social media campaign manager for support and services Asthenia 97676683 R53.1 08/09/2023 : therapy goals met.He is independen t on on unit. Asthma 550080854 J45.99 8 hxnot currently on medication smonitor for resp/clini aldair changes [id number] MIKE REYNOLDS [facility] on [address] [place] [address] 08/16/2023 07:01:21 08/18/2023 08:46:19 Alcohol dependence 92574500 F10.288 08/16: There has been no reported seizurehx seizures with withdrawal witnessed clonic tonic seizurestr eated with ativan and phenobarbi talencoura ged abstinence SUDs referralmo nitor for seizure activityco ntinue thiamine 100 mg qdfolate [address] 666 mg tid Asthma 315299338 J45.99 8 08/16: Denies any shortness of breath or resp. issuesnot currently on medication smonitor for resp/clini aldair changes [id number] Dayana Jerezjimena Blanchard [facility] on [address] [place] [address] 08/25/2023 10:10:49 08/28/2023 11:33:00 Alcohol dependence 55060345 F10.288 08/16: There has been no reported seizurehx seizures with withdrawal witnessed clonic tonic seizurestr eated with ativan and phenobarbi talencoura ged abstinence SUDs referralmo nitor for seizure activityco ntinue thiamine 100 mg qdfolate [address] 666 mg tid Asthma 861219877 J45.99 8 08/16: Denies any shortness of breath or resp. issuesnot currently on medication smonitor for resp/clini aldair changes Harmful pa ttern of use of cocaine 29293220 F14.10 follow up with outpatient carehas not used during SNF stay Homeless 62958315 Z59.00 discharge to custodial Sinus bradycardia 309648 05 R00.1 resolved, HR 78 today Laboratory test result abnormal 887577783 R89.9 resolved, follow up with outpt PCP next week Health Concerns Section Related Observation LastModified by Organization Detai ls LastModified Time None Recorded Concern Status LastModified by Organization Details LastModified Time None Recorded Advance Directives Directive Y: Payers Insurance Date Sequence Insurance Name Policy Number Policy Hobbs Covered Member ID Hobbs Member ID Guarantor Name 03/21/2024 1 [place]: [facility] [id number] [facility] Notes Date Note Type Note Provider Name and Address Organization Details Recorded Time 08/01/2023 text/html ROS as noted in the HPI Seen today for acute rounding visit. Past medical history remarkable for alcohol abuse dependency with withdrawal seizures, syncope with implantable loop recorder in place. [facility]23 from outside source with both unwitnessed and witnessed seizure; on arrival to ED he had another witnessed tonic clonic seizure associated with post ictal. He was treated with IV ativan and started on phenobarbital protocol. He was admitted for ETOH withdrawal, Rhabdo and and found to have sinus pauses. Evaluated by therapy for weakness, admitted to [facility] for continued care and rehab. On exam today he is stable, there is no acute nursing concerns. progressing toward therapy goals. MIKE REYNOLDS [address], [address], [place], [address], [facility] [employer] 08/01/2023 14:12:08 08/04/2023 text/html ROS as noted in the HPI Seen today for acute rounding visit. Past medical history remarkable for alcohol abuse dependency with withdrawal seizures, syncope with implantable loop recorder in place. Presented to [facility] on 07/08/23 from outside source with both unwitnessed and witnessed seizure; on arrival to ED he had another witnessed tonic clonic seizure associated with post ictal. He was treated with IV ativan and started on phenobarbital protocol. He was admitted for ETOH withdrawal, Rhabdo and and found to have sinus pauses. Evaluated by therapy for weakness, admitted to [facility] for continued care and rehab. He continue to be medically stable, he has been working with therapy, as of note he has progressed to independent for adl no adaptive device required. On exam he noted ambulating on unit with steady gait, he tells me that he is ok, there is no acute nursing concerns. MIKE REYNOLDS [address], [address], [place], [address], [facility] [employer] [facility] 08/04/2023 13:02:43 08/10/2023 text/html ROS as noted in the HPI Duarte is seen today for acute rounding visit. Past medical history of ETOH abuse with withdrawal seizures, cocaine abuse, asthma.He has been stable, he offers no complaints. There is no acute nursing concerns. MIKE REYNOLDS [address], [address], [place], [address], [facility] [employer] 08/10/2023 10:56:55 08/16/2023 text/html Duarte is seen today for routine rounding DANDY TENDER 30 day visit. Past medical history of ETOH abuse with withdrawal seizures, cocaine abuse, asthma. Duarte is alert and verbal in NAD. He has been stable seen his last rounding visit, there is no complaints, there is no acute nursing concerns. MIKE REYNOLDS [address], [address], [place], [address], [facility] 08/16/2023 11:03:33 08/25/2023 text/html ROS as noted in the HPI Duarte is seen today for discharge. Past medical history of ETOH abuse with withdrawal seizures, cocaine abuse, asthma. Duarte is alert and verbal in NAD. He has been stable seen his last rounding visit, there is no complaints, there is no acute nursing concerns. Dayana valle [address], [address], [place], [address], [facility] 08/25/2023 10:26:05
[2025-09-28 01:18] LABS: Appearance Urine Cloudy; Glucose Urine UA Negative (Negative); PH 5.5 (5.0-9.0); Specific Gravity - Urine 1.015 (1.005-1.025); UMIC TRIGGER UACC YES
[2025-09-28 01:33] LABS: Cannabinoid Screen Urine Not Detected (Not Detect)
--- NOTE | 2025-09-28 01:47 | PC.NURSE ---
pt scored 7 on CIWA scale. Medicated as per DEC.
--- NOTE | 2025-09-28 02:45 | PC.NURSE ---
PT reported 3+ bouts of diarrhea. Requested medication order from provider however once available to administer, TW noted PT to be sleeping soundly. Medication not administered. Awaiting for pt to wake again to administer
[2025-09-28 06:00] VITALS: BP 119/63; PULSE 81; RESP 17; TEMP 36.7; O2SAT 96
--- NOTE | 2025-09-28 07:00 | PC.NURSE ---
Assumed care of patient at 0645, patient appears to be in no apparent distress this am, calm and cooperative, ambulated to bathroom without issue. Continue plan of care for CARE team assessment
[2025-09-28 08:54] VITALS: BP 119/63; PULSE 81; RESP 17; TEMP 36.7; O2SAT 96
== END 2025-09-28 08:55 | disposition home or self-care (01) ==
PROVIDERS: Emergency Provider Emergency Medicine Emergency Medical Services
DX: F10.10 Alcohol abuse, uncomplicated (principal); D61.818 Other pancytopenia; R45.851 Suicidal ideations
CPT/HCPCS: 36415; 70450; 72100; 72125; 80053; 80307; 81001; 85025; 99285; S9485

== ENCOUNTER → 2025-09-27 21:01 | Outpatient (BNV) | payer MEDICAID, SELFPAY | PROVIDERS: Emergency Provider Emergency Medicine Emergency Medical Services; Visit Provider Student in an Organized Health Care Education/Training Program | DX: M54.50 Low back pain, unspecified (principal); Z04.3 Encounter for examination and observation following other accident | CPT/HCPCS: 70450; 72100; 72125 ==

== ENCOUNTER 2025-09-29 16:25 | Emergency (ER) | payer MEDICAID, SELFPAY ==
--- NOTE | 2025-09-29 | ECG_ITS ---
Test Reason : DRUG AND ALCOHOL USE Blood Pressure : */* mmHG Vent. Rate : 72 BPM Atrial Rate : 72 BPM P-R Int : 182 ms QRS Dur : 92 ms QT Int : 402 ms P-R-T Axes : 38 38 49 degrees QTcB Int : 440 ms Normal sinus rhythm Normal ECG When compared with ECG of 24-Sep-2025 19:55, No significant change was found Referred By: Generic ED Physician Electronically Signed By: Alistair Arcos
[2025-09-29 17:07] VITALS: BP 132/70; PULSE 100; PULSE 67; RESP 16; TEMP 36.9; O2SAT 95; O2SAT 97; BMI 27.5
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
[2025-09-29 18:22] LABS: Hematocrit 34.8 % (42.0-52.0); Hemoglobin 11.5 g/dl (14.0-18.0); Imm Gran Abs Auto 0.00 X10*3/uL (0.00-0.03); Imm Gran Pct Auto 0.0 % (0.0-0.4); Lymphocytes Absolute Auto 1.3 X10*3/uL (1.2-4.9); MANUAL DIFF FLAG SCAN; Mean Corpuscular HGB Conc 33.0 g/dl (31.0-36.0); Mean Corpuscular Hemoglobin 31.9 pg (27.0-33.0); Mean Corpuscular Volume 96.4 fL (80.0-98.0); NRBC Abs Auto 0.000 X10*3/uL (0.0-0.012); NRBC Pct Auto 0.0 /100WBC (0.0-0.2); Platelet Count 100 X10*3/uL (160-400); Red Blood Count 3.61 X10*6/uL (4.60-5.80); SCAN SMEAR FLAG 1
[2025-09-29 18:26] LABS: White Blood Count 2.5 X10*3/uL (4.8-10.8)
[2025-09-29 18:27] LABS: INTERNATIONAL NORM RATIO 1.1 (0.9-1.1); Prothrombin Time 12.9 SEC (11.2-13.5)
[2025-09-29 18:41] LABS: Alanine Aminotransferase 70 U/L (0-40); Albumin Level 4.2 g/dL (3.5-5.0); Alkaline Phosphatase 92 U/L (39-117); Anion Gap 12 (12-20); Aspartate Amino Transferase 149 U/L (5-37); Blood Urea Nitrogen 5 mg/dL (9-16); Calcium 8.4 mg/dL (8.4-10.2); Carbon Dioxide 27 mmol/L (22-29); Chloride 111 mmol/L (96-108); Creatinine Clr Calc Pharmacy 154.8; Estimated Glomerular Filt Rate > 60; Potassium 3.3 mmol/L (3.3-5.1); Sodium 147 mmol/L (135-145); Total Protein 8.2 g/dL (6.5-8.0)
[2025-09-29 18:43] LABS: Troponin-I High Sensitivity 5.6 ng/L (<3.5-35.0)
[2025-09-29 22:00] VITALS: RESP 16
--- OUTSIDE RECORDS SUMMARY | 2025-09-29 22:42 | XMS_ITS | Encounter Summary ---
Author Organization Located Within [facility] Address [address] [place] [id number] Phone Care Team Providers Care Customs Brokerage Agent Name Role Phone Ramin Arnold MD Primary Care Provider [phone] Encounter Details Date Type Department Care Team ([facility] st Contact Info) Description 11/16/2024 Ophth Exam AMANDA Consult from [address] [address] Lit Price MD [address] [place] [id number] [email or web address] Social History Tobacco Use Types Packs/Day Years [...] 11/16/2024 5:00 PM Ju Hines RN * [place] Suicide Severity Rating Scale (Screener/Recent Self-Report) Question [...] on filedocumented in this encounter Care Teams Customs Brokerage Agent Relationship Specialty Start Date End Date Ramin Arnold MD [email or web address] PCP - General Family Medicine 05/19/20 documented as of this encounter Additional Source Comments The information contained in this document represents components of the legal health record. It is not the complete legal health record.Located Within [facility]
--- OUTSIDE RECORDS SUMMARY | 2025-09-29 22:42 | XMS_ITS | Data Portability ---
Author Organization [facility], Main Office Address [address] [place] [address] Care Team Providers Care Director Packaging Name Role Phone [facility] OTHER Assessment Encounter Date [...] Address Organization Details Recorded Time Alcohol dependence 13999301 Active 2019 Riri harman, [facility] 0 10:55:15 Alcohol dependence 67826383 Active 2019 Riri Espinal null, [facility] 0 10:55:21 Sinus bradycardia 46165694 Active 2019 Riri harman, [facility] 0 10:55:22 Asthma 481644592 Active 2019 Riri harman, [facility] [employer] [facility] 0 10:55:25 Harmful pattern of use of cocaine 30280700 Active 2022 JESSICA HALEY, DIRECTOR SELECTION AND ADMINISTRATION [address], [address], [place], [address], [facility] [employer] [facility] 3 17:51:39 Homeless 12802265 Active 2022 JESSICA HALEY, DIRECTOR SELECTION AND ADMINISTRATION [address], [address], [place], [address], [facility] [employer] [facility] 3 18:07:02 Asthenia 43779673 Active 2022 JESSICA HALEY, [facility] [address], [place], [address], [facility] [employer] [facility] 3 18:07:05 Bradycardia 23485483 Active 2022 JESSICA HALEY, [facility] [address], [address], [place], [address], [facility] [employer] 3 18:07:11 Laboratory test result abnormal 599433586 Active 2022 JESSICA HALEY, DIRECTOR SELECTION AND ADMINISTRATION [address], [place], [address], [facility] [employer] 3 18:07:15 Problem Notes None recorded. Medical Equipment None Reported. Allergies Allergen ID Allergen Name Allergen Category Reaction Reaction Severity Criticality Documentation Date Start Date Code Code System Note Provider Name and Address Organization Details Recorded Time 78513 shellfish derived food,medi cation Not available Not available Not available 05/19/2020 Riri harman, [facility] [employer] [facility] 0 08:43:01 Medications Not known to be on any medication Vitals Date Recorded Heart rate Respiratory rate Body temperature Oxygen saturation Systolic And Diastolic Provider Name and Address Organization Details Last Updated DateTime 3 78 /min 18 /min 97.4 [degF] 99 % 115/67 mm[Hg] Dayana Sarmiento -Kierkla [address], [address], [place], [address], [facility] 3 10:21:31 Social History Question Answer Notes LastModified by Organizat ion Details LastModified Time Tobacco Smoking Status Current Every Day Smoker 2 a day MIKE REYNOLDS [address], [address], [place], [address], [facility] 07/19/2023 17:16:49 Do You Have [...] Do You Have A Medical Power Of Rails Developer? No Information not available 07/19/2023 What Was [...] anxious, or unable to sleep at night)? [id number] Information not available 07/19/2023 Family History Relationship [...] 25mcg/0.25 mL dose 2 completed Nicole harman [facility] 10/17/2023 11:43:55 [facility] 2 [facility] 14:21:00 Td (adult), 5 Lf tetanus toxoid, preservative free, adsorbed 7 completed Nicole harman [facility] 01/22/2024 14:21:20 Td (adult), 5 Lf tetanus toxoid, preservative free, adsorbed 8 completed Nicole harman [facility] 01/22/2024 14:21:35 pneumococcal polysaccharide PPV23 8 completed Nicole harman [facility] 01/22/2024 14:21:54 pneumococcal polysaccharide PPV23 6 completed Nicole harman [facility] 01/22/2024 14:22:04 Influenza, adjuvanted, quadrivalent, PF 3 completed Nicole harman [place] - [facility] 01/22/2024 14:23:02 Past Encounters Encounter ID Performer Location Encounter Start Date Encounter Closed Date Diagnosis/Indication Diagnosis SNOMED-CT Code Diagnosis ICD10 Code Diagnosis IMO Codes Diagnosis Note [id number] MIKE Chen [facility] on [address] [place] [address] 05/19/2020 08:42:26 05/29/2020 13:18:57 Alcohol dependence 28490584 F10.288 Hx of withdrawal seizuresFo lic acid 1 mg dailyThiam ine 100 mg dailyPT OT eval and treat Sinus bradycardia 742098 05 R00.1 Implanted dimension mill worker in placeF/u with cardiology Monitor HR Asthma 466474564 J45.99 8 Monitor respirator y status Liver enzy mes level above reference range 838671030 R74.8 Secondary to heavy ETOH useRepeat and monitor [id number] Lois Multani MD [facility] on [address] [place] [address] 05/20/2020 07:06:00 05/29/2020 14:50:19 Alcohol dependence 14570387 F10.20 thiamine 100 mg dailyfolic acid 1 mg dailysocia l work fu to encourage ongoing support and treatment Asthenia 86180042 R53.1 PT/OTwill monitor Liver enzy mes level above reference range 723243412 R74.8 will monitor Sinus bradycardia 796042 05 R00.1 resolvedwi ll monitor [id number] MIKE Chen [facility] on [address] [place] [address] 05/26/2020 09:30:59 05/29/2020 13:59:21 Alcohol dependence 41680473 F10.288 Hx of withdrawal seizuresFo lic acid 1 mg dailyThiam ine 100 mg dailyNo sxs of withdrawal noted Sinus bradycardia 178763 05 R00.1 Implanted dimension mill worker in placeF/u with cardiology Monitor HR-ranges 58-88 Asthma 315613582 J45.99 8 Monitor respirator y statusOn no medication s [id number] MIKE Chen [facility] on [address] [place] [address] 06/12/2020 08:31:05 06/16/2020 10:01:54 Alcohol dependence 52117762 F10.288 Hx of withdrawal seizuresFo lic acid 1 mg dailyThiam ine 100 mg dailyNo signs of withdrawal currently Sinus bradycardia 858047 05 R00.1 Implanted dimension mill worker in placeF/u with cardiology Monitor HR Asthma 983575920 J45.99 8 Monitor respirator y status Liver enzy mes level above reference range 843989400 R74.8 Secondary to heavy ETOH useRepeat LFTs 06/15 [id number] Riri Espinal [facility] on [address] [place] [address] 06/16/2020 11:47:30 06/18/2020 11:34:00 Alcohol dependence 92492037 F10.288 Hx of withdrawal seizuresFo lic acid 1 mg dailyThiam ine 100 mg dailyNo signs of withdrawal Encouraged to remain sober Sinus bradycardia 209496 05 R00.1 Implanted dimension mill worker in placeRemai ns asymptomat ic F/u with cardiology Asthma 062623255 J45.99 8 No respirator y issues currentlyF /u with PCP Liver enzy mes level above reference range 774896748 R74.8 Secondary to heavy ETOH useNow resolved [id number] JESSICA HALEY [facility] on [address] [place] [address] 07/19/2023 15:26:02 07/27/2023 10:51:11 Laboratory test result abnormal 793796004 R89.9 In acute care rhabdo, hypokalemi a, transamini tis, hypomagnes emia , thrombocyt openia, normocytic , metabolic acidosis , normocytic anemia likely related to etoh abuse,,tx with IVF and supplement al replacemen tmonitor labs Alcohol dependence 90244 003 F10.288 hx seizures with withdrawal witnessed clonic tonic seizurestr eated with ativan and phenobarbi talencoura ged abstinence SUDs referralmo nitor for seizure activityco ntinue thiamine 100 mg qdfolate [address] 666 mg tid Bradycardia 43565794 R00 .1 Hx of syncope with implantabl e loop recorderSB in acute care with pausescard iology and EPS consulted- ILR interrogat ed, showed no correlatio n of syncope and pauses, no need for PPM. ILR removed.re commending PSG outpatient to r/o [facility]- referral paced in [facility] Harmful pa ttern of use of cocaine 36726464 F14.10 refer to SUDsencour aged abstinence provide supportive services /refer to [facility] Homeless 84774563 Z59.00 rn social work for support and services Asthenia 42972839 R53.1 impaired gait/weakn essPT/OT evalMorse 10 Asthma 628048289 J45.99 8 hxnot currently on medication smonitor for resp/clini aldair changes [id number] Lois Multani MD [facility] on [address] [place] [address] 07/21/2023 05:52:30 07/27/2023 11:40:25 Asthenia 97600864 R53.1 PT/OTwill monitor Alcohol dependence 97922 003 F10.288 thiamine 100 mg dailyfolic acid 1 mg dailyacamp rosate 666 mg tldsocial work fu to encourage ongoing support and treatment Bradycardia 74365060 R00 .1 not associated with syncopewil l monitor History of seizure due to alcohol withdrawal 5863340154 92703 Z86.69 completed withdrawal protocolwi ll monitor [id number] MIKE REYNOLDS [facility] on [address] [place] [address] 07/24/2023 09:10:19 07/31/2023 15:03:51 Alcohol dependence 30522386 F10.288 there has been no seizure activity reported. hx seizures with withdrawal witnessed clonic tonic seizurestr eated with ativan and phenobarbi talencoura ged abstinence SUDs referralmo nitor for seizure activityco ntinue thiamine 100 mg qdfolate [address] 666 mg tid Laboratory test result abnormal 966321697 R89.9 In acute care rhabdo, hypokalemi a, transamini tis, hypomagnes emia , thrombocyt openia, normocytic , metabolic acidosis , normocytic anemia likely related to etoh abuse,,tx with IVF and supplement al replacemen tmonitor labs Bradycardia 72548994 R00 .1 denies any cardiac sx today. apical rate 70 Hx of syncope with implantabl e loop recorderSB in acute care with pausescard iology and EPS consulted- ILR interrogat ed, showed no correlatio n of syncope and pauses, no need for PPM. ILR removed.re commending PSG outpatient to r/o [facility]- referral paced in [facility] Harmful pa ttern of use of cocaine 94221681 F14.10 refer to SUDsencour aged abstinence provide supportive services /refer to Homeless 31796242 Z59.00 rn social work for support and services Asthenia 24712772 R53.1 plan for OTimpaired gait/weakn ess Pineda 10 Asthma 289317228 J45.99 8 hxnot currently on medication smonitor for resp/clini aldair changes [id number] MIKE REYNOLDS [facility] on [address] [place] [address] 07/26/2023 10:31:42 07/31/2023 15:13:33 Alcohol dependence 85072012 F10.288 there has been no seizure activity reported. hx seizures with withdrawal witnessed clonic tonic seizurestr eated with ativan and phenobarbi talencoura ged abstinence SUDs referralmo nitor for seizure activityco ntinue thiamine 100 mg qdfolate [address] 666 mg tid Bradycardia 97323836 R00 .1 HR 69Hx of syncope with implantabl e loop recorderSB in acute care with pausescard iology and EPS consulted- ILR interrogat ed, showed no correlatio n of syncope and pauses, no need for PPM. ILR removed.re commending PSG outpatient to r/o R[facility]- referral paced in [facility] Harmful pa ttern of use of cocaine 07179265 F14.10 refer to SUDsencour aged abstinence provide supportive services /refer to Homeless 68014457 Z59.00 rn social work for support and services Asthenia 79850999 R53.1 plan for OTimpaired gait/weakn ess10/11: he is ambulating with steady gait independen tly. Asthma 635472604 J45.99 8 hxnot currently on medication smonitor for resp/clini aldair changes [id number] MIKE REYNOLDS [facility] on [address] [place] [address] 08/01/2023 09:31:41 08/08/2023 09:26:07 Alcohol dependence 25374546 F10.288 there has been no seizure activity reported. hx seizures with withdrawal witnessed clonic tonic seizurestr eated with ativan and phenobarbi talencoura ged abstinence SUDs referralmo nitor for seizure activityco ntinue thiamine 100 mg qdfolate [address] 666 mg tid Bradycardia 77688171 R00 .1 HR 69Hx of syncope with implantabl e loop recorderSB in acute care with pausescard iology and EPS consulted- ILR interrogat ed, showed no correlatio n of syncope and pauses, no need for PPM. ILR removed.re commending PSG outpatient to r/o R[facility]- referral paced in [facility] Harmful pa ttern of use of cocaine 01016994 F14.10 refer to SUDsencour aged abstinence provide supportive services /refer to Homeless 11651535 Z59.00 rn social work for support and services Asthenia 11347420 R53.1 plan for OTimpaired gait/weakn ess07/26: he is ambulating with steady gait independen tly. Asthma 210898387 J45.99 8 hxnot currently on medication smonitor for resp/clini aldair changes [id number] MIKE REYNOLDS [facility] on [address] [place] [address] 08/04/2023 08:03:49 08/08/2023 11:32:51 Alcohol dependence 19730672 F10.288 08/04: there has been no seizure activity reported. hx seizures with withdrawal witnessed clonic tonic seizurestr eated with ativan and phenobarbi talencoura ged abstinence SUDs referralmo nitor for seizure activityco ntinue thiamine 100 mg qdfolate [address] 666 mg tid Bradycardia 03062624 R00 .1 HR 69Hx of syncope with implantabl e loop recorderSB in acute care with pausescard iology and EPS consulted- ILR interrogat ed, showed no correlatio n of syncope and pauses, no need for PPM. ILR removed.re commending PSG outpatient to r/o R[facility]- referral paced in [facility] Harmful pa ttern of use of cocaine 22886422 F14.10 refer to SUDsencour aged abstinence provide supportive services /refer to Homeless 02177372 Z59.00 rn social work for support and services Asthenia 47386608 R53.1 plan for OTimpaired gait/weakn ess/: he is ambulating with steady gait independen tly.08/04: meeting goals with therapy, independen t with care. Asthma 535301364 J45.99 8 hxnot currently on medication smonitor for resp/clini aldair changes [id number] MIKE REYNOLDS [facility] on [address] [place] [address] 08/10/2023 08:14:16 08/17/2023 15:56:48 Alcohol dependence 19729020 F10.288 hx seizures with withdrawal witnessed clonic tonic seizurestr eated with ativan and phenobarbi talencoura ged abstinence SUDs referralmo nitor for seizure activityco ntinue thiamine 100 mg qdfolate [address] 666 mg tid Bradycardia 11725506 R00 .1 Hx of syncope with implantabl e loop recorderSB in acute care with pausescard iology and EPS consulted- ILR interrogat ed, showed no correlatio n of syncope and pauses, no need for PPM. ILR removed.re commending PSG outpatient to r/o RAND- referral paced in [facility] Harmful pa ttern of use of cocaine 64995296 F14.10 refer to SUDsencour aged abstinence provide supportive services /refer to [facility] Homeless 31614685 Z59.00 rn social work for support and services Asthenia 64806446 R53.1 08/09/2023 : therapy goals met.He is independen t on on unit. Asthma 824414700 J45.99 8 hxnot currently on medication smonitor for resp/clini aldair changes [id number] MIKE REYNOLDS [facility] on [address] [place] [address] 08/16/2023 07:01:21 08/18/2023 08:46:19 Alcohol dependence 27936536 F10.288 08/16: There has been no reported seizurehx seizures with withdrawal witnessed clonic tonic seizurestr eated with ativan and phenobarbi talencoura ged abstinence SUDs referralmo nitor for seizure activityco ntinue thiamine 100 mg qdfolate [address] 666 mg tid Asthma 333831971 J45.99 8 08/16: Denies any shortness of breath or resp. issuesnot currently on medication smonitor for resp/clini aldair changes [id number] Dayana Jerezjimena Blanchard [facility] on [address] [place] [address] 08/25/2023 10:10:49 08/28/2023 11:33:00 Alcohol dependence 83432055 F10.288 08/16: There has been no reported seizurehx seizures with withdrawal witnessed clonic tonic seizurestr eated with ativan and phenobarbi talencoura ged abstinence SUDs referralmo nitor for seizure activityco ntinue thiamine 100 mg qdfolate [address] 666 mg tid Asthma 328746246 J45.99 8 08/16: Denies any shortness of breath or resp. issuesnot currently on medication smonitor for resp/clini aldair changes Harmful pa ttern of use of cocaine 77153172 F14.10 follow up with outpatient carehas not used during SNF stay Homeless 43729191 Z59.00 discharge to long term Sinus bradycardia 086345 05 R00.1 resolved, HR 78 today Laboratory test result abnormal 071738082 R89.9 resolved, follow up with outpt PCP next week Health Concerns Section Related Observation LastModified by Organization Detai ls LastModified Time None Recorded Concern Status LastModified by Organization Details LastModified Time None Recorded Advance Directives Directive Y: Payers Insurance Date Sequence Insurance Name Policy Number Policy Hobbs Covered Member ID Hobbs Member ID Guarantor Name 03/21/2024 1 [place] [facility] [id number] [facility] Notes Date Note Type Note Provider Name and Address Organization Details Recorded Time 08/01/2023 text/html ROS as noted in the HPI Seen today for acute rounding visit. Past medical history remarkable for alcohol abuse dependency with withdrawal seizures, syncope with implantable loop recorder in place. Presented [facility] on 07/08/23 from outside source with both unwitnessed and witnessed seizure; on arrival to ED he had another witnessed tonic clonic seizure associated with post ictal. He was treated with IV ativan and started on phenobarbital protocol. He was admitted for ETOH withdrawal, Rhabdo and and found to have sinus pauses. Evaluated by therapy for weakness, admitted to [facility] for continued care and rehab. On exam today he is stable, there is no acute nursing concerns. progressing toward therapy goals. MIKE REYNOLDS [address], [address], [place], [address], [facility] [employer] 08/01/2023 14:12:08 08/04/2023 text/html ROS as noted in the HPI Seen today for acute rounding visit. Past medical history remarkable for alcohol abuse dependency with withdrawal seizures, syncope with implantable loop recorder in place. Presented to [facility] on 07/08/23 from outside source with both unwitnessed and witnessed seizure; on arrival to ED he had another witnessed tonic clonic seizure associated with post ictal. He was treated with IV ativan and started on phenobarbital protocol. He was admitted for ETOH withdrawal, Rhabdo and and found to have sinus pauses. Evaluated by therapy for weakness, admitted to [facility] for continued care and rehab. He continue to be medically stable, he has been working with therapy, as of note he has progressed to independent for adl no adaptive device required. On exam he noted ambulating on unit with steady gait, he tells me that he is ok, there is no acute nursing concerns. MIKE REYNOLDS [address], [address], [place], [address], [facility] [employer] [facility] 08/04/2023 13:02:43 08/10/2023 text/html ROS as noted in the HPI Duarte is seen today for acute rounding visit. Past medical history of ETOH abuse with withdrawal seizures, cocaine abuse, asthma.He has been stable, he offers no complaints. There is no acute nursing concerns. MIKE REYNOLDS [address], [address], [place], [address], [facility] [employer] 08/10/2023 10:56:55 08/16/2023 text/html Duarte is seen today for routine rounding [employer]OR 30 day visit. Past medical history of ETOH abuse with withdrawal seizures, cocaine abuse, asthma. Duarte is alert and verbal in NAD. He has been stable seen his last rounding visit, there is no complaints, there is no acute nursing concerns. MIKE REYNOLDS [address], [address], [place], [address], [facility] 08/16/2023 11:03:33 08/25/2023 text/html ROS as noted in the HPI Duarte is seen today for discharge. Past medical history of ETOH abuse with withdrawal seizures, cocaine abuse, asthma. Duarte is alert and verbal in NAD. He has been stable seen his last rounding visit, there is no complaints, there is no acute nursing concerns. Dayana valle [address], [address], [place], [address], [facility] 08/25/2023 10:26:05
--- OUTSIDE RECORDS SUMMARY | 2025-09-29 22:42 | XMS_ITS | Encounter Summary ---
Author Organization [facility] Address [address] [place] [address] Phone Care Team Providers Care Microfilm Clerk Name Role Phone Ramin Arnold MD Primary Care Provider [phone] Encounter Details Date Type Department Care Team (Late st Contact Info) Description 11/16/2024 Ophth Exam AMANDA O[facility] Trauma [facility] [place] [address] [place] [address] Laurence Coelho MD [address] [place] [id number] [email or web address] Social History Tobacco Use Types [...] 11/16/2024 5:00 PM Ju Hines RN * [place] Suicide Severity Rating Scale (Screener/Recent Self-Report) Question [...] on filedocumented in this encounter Care Teams Microfilm Clerk Relationship Specialty Start Date End Date Ramin Arnold MD [email or web address] PCP - General Family Medicine 05/19/20 documented as of this encounter Additional Source Comments The information contained in this document represents components of the legal health record. It is not the complete legal health record.[facility]
--- OUTSIDE RECORDS SUMMARY | 2025-09-29 22:42 | XMS_ITS | Encounter Summary ---
Author Organization [facility] Address [address] [place] [address] Phone Care Team Providers Care Engraver Ornamental Design Name Role Phone Ramin Arnold MD Primary Care Provider [phone] Encounter Details Date Type Department Care Team (Late st Contact Info) Description 11/17/2024 Procedure Pass AMANDA [facility]TH [facility] PERIOP DEPT [address] [place] [address] Social History Tobacco Use Types Packs/Day Years [...] on filedocumented in this encounter Care Teams Engraver Ornamental Design Relationship Specialty Start Date End Date Ramin Arnold MD [email or web address] PCP - General Family Medicine 05/19/20 documented as of this encounter Additional Source Comments The information contained in this document represents components of the legal health record. It is not the complete legal health record.[facility]
--- OUTSIDE RECORDS SUMMARY | 2025-09-29 22:42 | XMS_ITS | Encounter Summary ---
Author Organization [facility] Address [address] [place] [address] Phone Care Team Providers Care Entertainment Production Professional Name Role Phone Ramin Arnold MD Primary Care Provider [phone] Encounter Details Date Type Department Care Team (Late st Contact Info) Description 05/21/2020 Transcribe Orders [facility] Specimen Processing [address] [place] [address] Ramin Arnold MD [address] [place] [address] [address], [address] [place] [address] [email or web address] COVID-19 ruled out (Primary Dx) Social History [...] 5:36 PM EDT) Specimen Source NASOPHARYNGEAL SWAB (BALE SEWER) [facility] COVID Testing Status Sent to [facility] Micro Lab [facility] Other 05/21/2020 5:36 PM EDT 05/21/2020 5:47 PM EDT us Ramin Arnold MD LAB GENERAL ORDERABLES Final Res ult [facility] [address] [place] [address] documented in this encounter Visit Diagnoses Diagnosis COVID-19 ruled out- Primary documented in this encounter Additional Health Concerns Infection Onset Date Last Indicated Resolved Time CoV-Exposed Comment:Recent close contact 05/21/2020 05/21/2020 06/04/2020 1:23 AM EDT CoV-Exposed Comment:Recent close contact 06/04/2020 06/04/2020 06/18/2020 1:24 AM EDT CoV-Exposed Comment:Recent close contact 08/26/2020 08/26/2020 09/09/2020 1:24 AM EST documented as of this encounter Care Teams Entertainment Production Professional Relationship Specialty Start Date End Date Ramin Arnold MD [email or web address] PCP - General Family Medicine 05/19/20 documented as of this encounter Additional Source Comments The information contained in this document represents components of the legal health record. It is not the complete legal health record.[facility]
--- OUTSIDE RECORDS SUMMARY | 2025-09-29 22:42 | XMS_ITS | Clinical Summary ---
Author Organization [facility] it Address [address] [place] [address] Care Team Providers Care Pharmacy Delivery Driver Name Role Phone Unavailable Primary Care Provider [...]
--- OUTSIDE RECORDS SUMMARY | 2025-09-29 22:42 | XMS_ITS | Encounter Summary ---
Author Organization [facility] Address [address] [place] [address] Phone Care Team Providers Care Tank Erector Name Role Phone Ramin Arnold MD Primary Care Provider [phone] Encounter Details Date Type Department Care Team (Late st Contact Info) Description 11/16/2024 Procedure Pass [facility] CT, [address] [facility], [address]nd Floor, [address] [place] [address] Social History Tobacco Use Types Packs/Day Years [...] 11/16/2024 5:00 PM Ju Hines RN * [place] Suicide Severity Rating Scale (Screener/Recent Self-Report) Question [...] on filedocumented in this encounter Care Teams Tank Erector Relationship Specialty Start Date End Date Ramin Arnold MD PCP - General Family Medicine 05/19/20 documented as of this encounter Additional Source Comments The information contained in this document represents components of the legal health record. It is not the complete legal health record.[facility]
--- OUTSIDE RECORDS SUMMARY | 2025-09-29 22:42 | XMS_ITS | Clinical Summary ---
Author Organization [facility] Address [address] [place] [address] Phone Care Team Providers Care Supervisor Dock Name Role Phone Ramin Arnold MD Primary Care Provider [phone] Allergies Active Allergy Reactions Criticality Noted Date [...] Advance Directives For more information, please contact: [phone] (9AM - 5PM Sil/[facility], Monday-Monday) * Full Code (Latest Code Status on File) Date Activated Date Inactivated Comments 11/16/2024 5:47 PM Question Answer Comments Code Status Confirmed With: Patient * Full Code Date Activated Date Inactivated Comments 11/16/2024 5:45 PM 11/16/2024 5:47 PM Question Answer Comments Code Status Confirmed With: Other (specify below ) Care Teams Supervisor Dock Relationship Specialty Start Date End Date Ramin Arnold MD [email or web address] PCP - General Family Medicine 05/19/20 Additional Source Comments The information contained in this document represents components of the legal health record. It is not the complete legal health record.[facility]
--- OUTSIDE RECORDS SUMMARY | 2025-09-29 22:42 | XMS_ITS | Encounter Summary ---
Author Organization [facility] Address [address] [place] [address] Phone Care Team Providers Care Precast Concrete Products Installer Name Role Phone Ramin Arnold MD Primary Care Provider [phone] Encounter Details Date Type Department Care Team (Late st Contact Info) Description 11/19/2024 Ophth Exam [facility] Trauma Main [employer] [address] [place] [address] Laurence Coelho MD [address] [place] [id number] [email or web address] Social History Tobacco Use Types [...] on filedocumented in this encounter Care Teams Precast Concrete Products Installer Relationship Specialty Start Date End Date Ramin Arnold MD [email or web address] PCP - General Family Medicine 05/19/20 documented as of this encounter Additional Source Comments The information contained in this document represents components of the legal health record. It is not the complete legal health record.[facility]
[2025-09-30 03:21] VITALS: BP 114/67; PULSE 70; RESP 17; TEMP 36.6; O2SAT 97
[2025-09-30 03:24] LABS: Appearance Urine Cloudy; Glucose Urine UA Negative (Negative); PH 5.5 (5.0-9.0); Specific Gravity - Urine 1.015 (1.005-1.025); UMIC TRIGGER UACC YES
[2025-09-30 03:34] LABS: Cannabinoid Screen Urine Not Detected (Not Detect)
[2025-09-30 06:03] VITALS: BP 118/74; PULSE 80; RESP 16; TEMP 36.8; O2SAT 96
[2025-09-30 08:33] VITALS: BP 145/84; PULSE 62; RESP 16; TEMP 36.6; O2SAT 97
[2025-09-30 09:19] VITALS: BP 145/84; PULSE 62; RESP 16; TEMP 36.6; O2SAT 97
--- NOTE | 2025-09-30 15:37 | HO.PTCAREPLN ---
Patient Care Plan Patient Care Plan Details: [facility] EMERGENCY DEPARTMENT CARE PLAN Duarte Bailon 1985 Patient presentation: Duarte has a complicated medical history he has significant alcohol use disorder as well as cocaine abuse disorder.? He has real medical conditions including pancytopenia/ anemia requiring blood transfusion, but his guaiac tests have been negative.? He also may present with an asthma exacerbation, make sure he has an albuterol inhaler on his person if he is discharged.? Duarte generally complaints of alcohol intoxication, being found outside, homelessness, suicidal ideation in the setting of alcohol intoxication.? He is well known to our care and recovery teams with numerous assessments.? He generally declined services and detox.? There are reportedly remote psychiatric admissions both at [facility] and [facility] but it is unclear from Care team notes when and if this occurred. PMH: Asthma, cocaine abuse, alcohol use disorder with history of alcohol withdrawal seizures, Shukri arrhythmia - as of April 2025 [facility] EP has not elected to put in any device, rhabdomyolysis, hypokalemia, hypomagnesemia, RAND not compliant with CPAP, ?chronic pancytopenia with negative guaiac has had transfusions in past, Prior admissions: He is generally admitted due to electrolyte abnormalities, anemia requiring blood transfusion, alcohol withdrawal.? He has not been admitted psychiatrically from what the EMR shows since at least 2020 and as stated above it is unclear what those inpatient psychiatric admissions were for ED interventions: Medical screening exam as indicated.? If Duarte is intoxicated and you have no concerns with his presentation and stable vital signs labs are not always indicated.? I would avoid having care and recovery teams see him regularly as he refuses any services.? If he still reports suicidal ideation upon clearance from intoxication then it is appropriate to involve care team but otherwise would discharge after reassessment in the morning. Follow up: ? Unfortunately, Duarte has refused outpatient services and has a history of noncompliance.? He has lived in a tent in the [facility] for several years and does not want assistance out of the situation.? He occasionally uses warming shelters.? Continue to refer to his outpatient providers but again he does not generally follow up with them.? You can always give him a half-way list, warming center list, detox list. I spoke with him on 09/30/25 and offered placement/S35 help and he notes he lives in the same tent and lives with a group of people. He has no interest in undergoing detox or placement services.
== END 2025-09-30 09:22 | disposition home or self-care (01) ==
PROVIDERS: Emergency Provider Emergency Medicine
DX: F10.120 Alcohol abuse with intoxication, uncomplicated (principal); F10.130 Alcohol abuse with withdrawal, uncomplicated; Y90.8 Blood alcohol level of 240 mg/100 ml or more; J45.909 Unspecified asthma, uncomplicated
CPT/HCPCS: 36415; 80053; 80307; 81001; 84484; 85025; 85610; 93005; 99285; S9485

== ENCOUNTER → 2025-09-29 18:15 | Outpatient (BNV) | payer MEDICAID, SELFPAY | PROVIDERS: Emergency Provider Emergency Medicine; Visit Provider Internal Medicine Cardiovascular Disease | DX: F10.90 Alcohol use, unspecified, uncomplicated (principal); F19.90 Other psychoactive substance use, unspecified, uncomplicated | CPT/HCPCS: 93010 ==

== ENCOUNTER 2025-09-30 18:54 | Emergency (ER) | payer MEDICAID, SELFPAY ==
[2025-09-30 19:22] VITALS: PULSE 80; O2SAT 94
[2025-09-30 19:40] VITALS: BMI 24.9
[2025-09-30 19:42] VITALS: BP 118/76; PULSE 83; RESP 16; O2SAT 93
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
--- NOTE | 2025-09-30 20:06 | PC.NURSE ---
Patient changed into hospital attire. Belongings list completed. Patient in ED [address] Cartwright to evaluate the patient. Pt admits to ETOH & cocaine use, denies SI/HI. Refused temperature at triage. Security was present during changeover. Belongings in [facility].
--- OUTSIDE RECORDS SUMMARY | 2025-09-30 20:36 | XMS_ITS | Encounter Summary ---
Author Organization [facility] Address [address] [place] [address] Phone Care Team Providers Care Terra Cotta Mason Name Role Phone Ramin Arnold MD Primary Care Provider [phone] Encounter Details Date Type Department Care Team ([facility] st Contact Info) Description 11/16/2024 Ophth Exam [facility] Consult from [address] [address] Lit Price MD [address] [place] [address] [email or web address] Social History Tobacco Use Types Packs/Day Years [...] 11/16/2024 5:00 PM Ju Hines RN * [place] Suicide Severity Rating Scale (Screener/Recent Self-Report) Question [...] on filedocumented in this encounter Care Teams Terra Cotta Mason Relationship Specialty Start Date End Date Ramin Arnold MD [email or web address] PCP - General Family Medicine 05/19/20 documented as of this encounter Additional Source Comments The information contained in this document represents components of the legal health record. It is not the complete legal health record.[facility]
--- OUTSIDE RECORDS SUMMARY | 2025-09-30 20:36 | XMS_ITS | Encounter Summary ---
Author Organization [facility] Address [address] [place] [address] Phone Care Team Providers Care Break Out Worker Name Role Phone Ramin Arnold MD Primary Care Provider [phone] Encounter Details Date Type Department Care Team (Late st Contact Info) Description 11/16/2024 Procedure Pass [facility] CT, [address] [facility], 2nd Floor, [address] [place] [address] Social History Tobacco Use Types Packs/Day Years [...] 11/16/2024 5:00 PM Ju Hines RN * [place] Suicide Severity Rating Scale (Screener/Recent Self-Report) Question [...] on filedocumented in this encounter Care Teams Break Out Worker Relationship Specialty Start Date End Date Ramin Arnold MD PCP - General Family Medicine 05/19/20 documented as of this encounter Additional Source Comments The information contained in this document represents components of the legal health record. It is not the complete legal health record.[facility]
--- OUTSIDE RECORDS SUMMARY | 2025-09-30 20:36 | XMS_ITS | Encounter Summary ---
Author Organization [facility] Address [address] [place] [address] Phone Care Team Providers Care Assistant Purchasing Manager Name Role Phone Ramin Arnold MD Primary Care Provider [phone] Encounter Details Date Type Department Care Team ([facility] st Contact Info) Description 11/19/2024 Ophth Exam [facility] and Ear Ophthalmology Trauma Service [address] [place] [address] Laurence Coelho MD [address] [place] [address] [email or web address] Social History Tobacco Use [...] filedocumented in this encounter Care Teams Assistant Purchasing Manager Relationship Specialty Start Date End Date Ramin Arnold MD [email or web address] PCP - General Family Medicine 05/19/20 documented as of this encounter Additional Source Comments The information contained in this document represents components of the legal health record. It is not the complete legal health record.[facility]
--- OUTSIDE RECORDS SUMMARY | 2025-09-30 20:36 | XMS_ITS | Encounter Summary ---
Author Organization [facility] Address [address] [place] [address] Phone Care Team Providers Care Director Of Institutional Sales Name Role Phone Ramin Arnold MD Primary Care Provider [phone] Encounter Details Date Type Department Care Team (Late st Contact Info) Description 11/17/2024 Procedure Pass [facility] [address] PERIOP DEPT [address] [place] [address] Social History Tobacco Use Types Packs/Day Years [...] on filedocumented in this encounter Care Teams Director Of Institutional Sales Relationship Specialty Start Date End Date Ramin Arnold MD [email or web address] PCP - General Family Medicine 05/19/20 documented as of this encounter Additional Source Comments The information contained in this document represents components of the legal health record. It is not the complete legal health record.[facility]
--- OUTSIDE RECORDS SUMMARY | 2025-09-30 20:36 | XMS_ITS | Clinical Summary ---
Author Organization [facility] Address [address] [place] [address] Phone Care Team Providers Care Census Clerk Name Role Phone Ramin Arnold MD Primary Care Provider [phone] Allergies Active Allergy Reactions Criticality Noted Date [...] Advance Directives For more information, please contact: [phone] (9AM - 5PM Sil/[facility], Monday-Monday) * Full Code (Latest Code Status on File) Date Activated Date Inactivated Comments 11/16/2024 5:47 PM Question Answer Comments Code Status Confirmed With: Patient * Full Code Date Activated Date Inactivated Comments 11/16/2024 5:45 PM 11/16/2024 5:47 PM Question Answer Comments Code Status Confirmed With: Other (specify below ) Care Teams Census Clerk Relationship Specialty Start Date End Date Ramin Arnold MD [email or web address] PCP - General Family Medicine 05/19/20 Additional Source Comments The information contained in this document represents components of the legal health record. It is not the complete legal health record.[facility]
--- OUTSIDE RECORDS SUMMARY | 2025-09-30 20:36 | XMS_ITS | Encounter Summary ---
Author Organization [facility] Address [address] [place] [address] Phone Care Team Providers Care Ring Packer Name Role Phone Ramin Arnold MD Primary Care Provider [phone] Encounter Details Date Type Department Care Team (Late st Contact Info) Description 11/16/2024 Ophth Exam [facility] Eye and Ear Ophthalmology Trauma Service [address] [place] [address] Laurence Coelho MD [address] [place] [phone] [email or web address] Social History Tobacco Use Types [...] No Risk Indicated 11/16/2024 5:00 PM Ju Hines, STEFFANY * [place] Suicide Severity Rating Scale (Screener/Recent Self-Report) Question [...] filedocumented in this encounter Care Teams Ring Packer Relationship Specialty Start Date End Date Ramin Arnold MD [email or web address] PCP - General Family Medicine 05/19/20 documented as of this encounter Additional Source Comments The information contained in this document represents components of the legal health record. It is not the complete legal health record.[facility]
--- OUTSIDE RECORDS SUMMARY | 2025-09-30 20:36 | XMS_ITS | Clinical Summary ---
Author Organization [facility] it Address [address] [place] [address] Care Team Providers Care Service Line Coordinator Name Role Phone Unavailable Primary Care Provider [...]
--- OUTSIDE RECORDS SUMMARY | 2025-09-30 20:36 | XMS_ITS | Encounter Summary ---
Author Organization [facility] Address [address] [place] [address] Phone Care Team Providers Care Switch House Operator Name Role Phone Ramin Arnold MD Primary Care Provider [phone] Encounter Details Date Type Department Care Team (Late st Contact Info) Description 05/21/2020 Transcribe Orders [facility] Specimen Processing [address] [place] [address] Ramin Arnold MD [address] [place] [address] [address] [place] [address] [email or web address] COVID-19 [...] 5:36 PM EDT) Specimen Source NASOPHARYNGEAL SWAB (TIE PRESSER) [facility] COVID Testing Status Sent to [facility] Micro Lab [facility] Other 05/21/2020 5:36 PM EDT 05/21/2020 5:47 PM EDT us Ramin Arnold MD LAB GENERAL ORDERABLES Final Res ult [facility] [address] [place] [address] documented in this encounter Visit Diagnoses Diagnosis COVID-19 ruled out- Primary documented in this encounter Additional Health Concerns Infection Onset Date Last Indicated Resolved Time CoV-Exposed Comment:Recent close contact 05/21/2020 05/21/2020 06/04/2020 1:23 AM EDT CoV-Exposed Comment:Recent close contact 06/04/2020 06/04/2020 06/18/2020 1:24 AM EDT CoV-Exposed Comment:Recent close contact 08/26/2020 08/26/2020 09/09/2020 1:24 AM EST documented as of this encounter Care Teams Switch House Operator Relationship Specialty Start Date End Date Ramin Arnold MD [email or web address] PCP - General Family Medicine 05/19/20 documented as of this encounter Additional Source Comments The information contained in this document represents components of the legal health record. It is not the complete legal health record.[facility]
[2025-10-01 00:48] VITALS: BP 106/63; PULSE 85; RESP 16; TEMP 36.7; O2SAT 94
[2025-10-01 03:40] VITALS: BP 109/69; PULSE 78; RESP 16; TEMP 36.9; O2SAT 95
[2025-10-01 06:28] VITALS: BP 107/63; PULSE 74; RESP 16; TEMP 36.8; O2SAT 95
[2025-10-01 10:26] VITALS: BP 107/63; PULSE 74; RESP 16; TEMP 36.8; O2SAT 95
== END 2025-10-01 10:26 | disposition home or self-care (01) ==
PROVIDERS: Emergency Provider Emergency Medicine
DX: F10.920 Alcohol use, unspecified with intoxication, uncomplicated (principal); J45.909 Unspecified asthma, uncomplicated; Z87.891 Personal history of nicotine dependence
CPT/HCPCS: 99284

== ENCOUNTER 2025-10-01 18:40 | Emergency (ER) | payer MEDICAID, SELFPAY ==
[2025-10-01 18:50] VITALS: BP 126/65; BP 128/78; PULSE 77; PULSE 98; RESP 18; TEMP 36.7; O2SAT 96; O2SAT 98; BMI 27.5
--- NOTE | 2025-10-01 18:59 | PC.NURSE ---
pt biba from the street, a&ox3, respirations even and unlabored. pt reports etoh use of everything , pt denies si/hi and states he does not want recovery. Lonnie YBARRA at bedside. pt changed by security. vss
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
--- OUTSIDE RECORDS SUMMARY | 2025-10-01 21:12 | XMS_ITS | Encounter Summary ---
Author Organization [facility] Address [address] [place] [phone] Phone Care Team Providers Care Simonizer Name Role Phone Ramin Arnold MD Primary Care Provider [phone] Encounter Details Date Type Department Care Team ([facility] st Contact Info) Description 11/19/2024 Ophth Exam [facility] Eye and Ear Ophthalmology Trauma Service [address] [place] [address] Laurence Coelho MD [address] [place] [address] [email or web address] Social History Tobacco Use Types [...] on filedocumented in this encounter Care Teams Simonizer Relationship Specialty Start Date End Date Ramin Arnold MD [email or web address] PCP - General Family Medicine 05/19/20 documented as of this encounter Additional Source Comments The information contained in this document represents components of the legal health record. It is not the complete legal health record.[facility]
--- OUTSIDE RECORDS SUMMARY | 2025-10-01 21:12 | XMS_ITS | Encounter Summary ---
Author Organization [facility] Address [address] [place] [id number] Phone Care Team Providers Care Kiss Mixer Name Role Phone Ramin Arnold MD Primary Care Provider [phone] Encounter Details Date Type Department Care Team (Late st Contact Info) Description 11/17/2024 Procedure Pass [facility] PERIOP DEPT [address] [place] [address] Social History Tobacco Use Types Packs/Day Years [...] on filedocumented in this encounter Care Teams Kiss Mixer Relationship Specialty Start Date End Date Ramin Arnold MD [email or web address] PCP - General Family Medicine 05/19/20 documented as of this encounter Additional Source Comments The information contained in this document represents components of the legal health record. It is not the complete legal health record.[facility]
--- OUTSIDE RECORDS SUMMARY | 2025-10-01 21:12 | XMS_ITS | Encounter Summary ---
Author Organization [facility] Address [address] [place] [phone] Phone Care Team Providers Care Adjunct Writing Instructor Name Role Phone Ramin Arnold MD Primary Care Provider [phone] Encounter Details Date Type Department Care Team (Late st Contact Info) Description 11/16/2024 Ophth Exam [facility] Eye and Ear Ophthalmology Trauma Service [address] [place] [address] Laurence Coelho MD [address] [place] [id number] [email or web address] Social History Tobacco Use Types [...] 11/16/2024 5:00 PM Ju Hines, STEFFANY * Clark Suicide Severity Rating Scale (Screener/Recent Self-Report) Question [...] filedocumented in this encounter Care Teams Adjunct Writing Instructor Relationship Specialty Start Date End Date Ramin Arnold MD [email or web address] PCP - General Family Medicine 05/19/20 documented as of this encounter Additional Source Comments The information contained in this document represents components of the legal health record. It is not the complete legal health record.[facility]
--- OUTSIDE RECORDS SUMMARY | 2025-10-01 21:12 | XMS_ITS | Clinical Summary ---
Author Organization [facility] Address [address] [place] [address] Phone Care Team Providers Care Respiratory Care Specialist Name Role Phone Ramin Arnold MD Primary Care Provider [phone] Allergies Active Allergy Reactions Criticality Noted Date [...] Advance Directives For more information, please contact: [phone] (9AM - 5PM Sil/[facility], Monday-Monday) * Full Code (Latest Code Status on File) Date Activated Date Inactivated Comments 11/16/2024 5:47 PM Question Answer Comments Code Status Confirmed With: Patient * Full Code Date Activated Date Inactivated Comments 11/16/2024 5:45 PM 11/16/2024 5:47 PM Question Answer Comments Code Status Confirmed With: Other (specify below ) Care Teams Respiratory Care Specialist Relationship Specialty Start Date End Date Ramin Arnold MD [email or web address] PCP - General Family Medicine 05/19/20 Additional Source Comments The information contained in this document represents components of the legal health record. It is not the complete legal health record.[facility]
--- OUTSIDE RECORDS SUMMARY | 2025-10-01 21:12 | XMS_ITS | Data Portability ---
Author Organization [facility], Main Office Address [address], [address] [place] [address] Care Team Providers Care Application Infrastructure Engineer Name Role Phone [facility] OTHER Assessment Encounter Date [...] Address Organization Details Recorded Time Alcohol dependence 31580050 Active 2019 Riri harman, [facility] 0 10:55:15 Alcohol dependence 30873717 Active 2019 Riri Espinal null, [facility] 0 10:55:21 Sinus bradycardia 76781932 Active 2019 Riri harman, [facility] 0 10:55:22 Asthma 422794214 Active 2019 Riri harman, [facility] [employer] [facility] 0 10:55:25 Harmful pattern of use of cocaine 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 Active 2022 JESSICA HALEY, PLANISHING HAMMER OPERATOR [address], [place], [address], [facility] [employer] [facility] 3 17:51:39 Homeless 41659298 Active 2022 JESSICA HALEY, PLANISHING HAMMER OPERATOR [address], [address], [place], [address], [facility] [employer] [facility] 3 18:07:02 Asthenia 27604382 Active 2022 JESSICA HALEY, [facility] [address], [place], [address], [facility] [employer] [facility] 3 18:07:05 Bradycardia 51684664 Active 2022 JESSICA HALEY, [facility] [address] [facility], [address], [place], [address], [facility] [employer] 3 18:07:11 Laboratory test result abnormal 063623072 Active 2022 JESSICA HALEY, PLANISHING HAMMER OPERATOR [address], [place], [address], [facility] [employer] 3 18:07:15 Problem Notes None recorded. Medical Equipment None Reported. Allergies Allergen ID Allergen Name Allergen Category Reaction Reaction Severity Criticality Documentation Date Start Date Code Code System Note Provider Name and Address Organization Details Recorded Time 93838 shellfish derived food,medi cation Not available Not available Not available 05/19/2020 Riri harman, [facility] [employer] [facility] 0 08:43:01 Medications Not known to be on any medication Vitals Date Recorded Heart rate Respiratory rate Body temperature Oxygen saturation Systolic And Diastolic Provider Name and Address Organization Details Last Updated DateTime 3 78 /min 18 /min 97.4 [degF] 99 % 115/67 mm[Hg] Dayana Sarmiento -Kierkla [address], [address], [place], [address], [facility] [employer] 3 10:21:31 Social History Question Answer Notes LastModified by Organizat ion Details LastModified Time Tobacco Smoking Status Current Every Day Smoker 2 a day MIKE REYNOLDS [address] [facility], [address], [place], [address], [facility] 07/19/2023 17:16:49 Do You Have An [...] Do You Have A Medical Power Of Poll Clerk? No Information not available 07/19/2023 What [...] anxious, or unable to sleep at night)? [id number] Information not available 07/19/2023 Family History Relationship [...] 25mcg/0.25 mL dose 2 completed Nicole harman [facility] 10/17/2023 11:43:55 [facility]dap 2 [facility] 14:21:00 Td (adult), 5 Lf tetanus toxoid, preservative free, adsorbed 7 completed Nicole harman [facility] 01/22/2024 14:21:20 Td (adult), 5 Lf tetanus toxoid, preservative free, adsorbed 8 completed Nicole harman [facility] 01/22/2024 14:21:35 pneumococcal polysaccharide PPV23 8 completed Nicole harman [facility] 01/22/2024 14:21:54 pneumococcal polysaccharide PPV23 6 completed Nicole harman [facility] 01/22/2024 14:22:04 Influenza, adjuvanted, quadrivalent, PF 3 completed Nicole harman [place] - [facility] 01/22/2024 14:23:02 Past Encounters Encounter ID Performer Location Encounter Start Date Encounter Closed Date Diagnosis/Indication Diagnosis SNOMED-CT Code Diagnosis ICD10 Code Diagnosis IMO Codes Diagnosis Note [id number] MIKE Chen [facility] on [address] [place] [address] 05/19/2020 08:42:26 05/29/2020 13:18:57 Alcohol dependence 24224071 F10.288 Hx of withdrawal seizuresFo lic acid 1 mg dailyThiam ine 100 mg dailyPT OT eval and treat Sinus bradycardia 071734 05 R00.1 Implanted pharmacoepidemiologist in placeF/u with cardiology Monitor HR Asthma 014497304 J45.99 8 Monitor respirator y status Liver enzy mes level above reference range 253883719 R74.8 Secondary to heavy ETOH useRepeat and monitor [id number] Lois Multani MD [facility] on [address] [place] [address] 05/20/2020 07:06:00 05/29/2020 14:50:19 Alcohol dependence 24062096 F10.20 thiamine 100 mg dailyfolic acid 1 mg dailysocia l work fu to encourage ongoing support and treatment Asthenia 21550158 R53.1 PT/OTwill monitor Liver enzy mes level above reference range 277833392 R74.8 will monitor Sinus bradycardia 657071 05 R00.1 resolvedwi ll monitor [id number] MIKE Chen [facility] on [address] [place] [address] 05/26/2020 09:30:59 05/29/2020 13:59:21 Alcohol dependence 43626293 F10.288 Hx of withdrawal seizuresFo lic acid 1 mg dailyThiam ine 100 mg dailyNo sxs of withdrawal noted Sinus bradycardia 457362 05 R00.1 Implanted pharmacoepidemiologist in placeF/u with cardiology Monitor HR-ranges 58-88 Asthma 474123749 J45.99 8 Monitor respirator y statusOn no medication s [id number] MIKE Chen [facility] on [address] [place] [address] 06/12/2020 08:31:05 06/16/2020 10:01:54 Alcohol dependence 87887381 F10.288 Hx of withdrawal seizuresFo lic acid 1 mg dailyThiam ine 100 mg dailyNo signs of withdrawal currently Sinus bradycardia 120372 05 R00.1 Implanted pharmacoepidemiologist in placeF/u with cardiology Monitor HR Asthma 755670818 J45.99 8 Monitor respirator y status Liver enzy mes level above reference range 435895749 R74.8 Secondary to heavy ETOH useRepeat LFTs 06/15 [id number] Riri Espinal [facility] on [address] [place] [address] 06/16/2020 11:47:30 06/18/2020 11:34:00 Alcohol dependence 55482905 F10.288 Hx of withdrawal seizuresFo lic acid 1 mg dailyThiam ine 100 mg dailyNo signs of withdrawal Encouraged to remain sober Sinus bradycardia 362916 05 R00.1 Implanted pharmacoepidemiologist in placeRemai ns asymptomat ic F/u with cardiology Asthma 320273627 J45.99 8 No respirator y issues currentlyF /u with PCP Liver enzy mes level above reference range 487014232 R74.8 Secondary to heavy ETOH useNow resolved [id number] JESSICA HALEY [facility] on [address] [place] [id number] 07/19/2023 15:26:02 07/27/2023 10:51:11 Laboratory test result abnormal 799750799 R89.9 In acute care rhabdo, hypokalemi a, transamini tis, hypomagnes emia , thrombocyt openia, normocytic , metabolic acidosis , normocytic anemia likely related to etoh abuse,,tx with IVF and supplement al replacemen tmonitor labs Alcohol dependence 68962 003 F10.288 hx seizures with withdrawal witnessed clonic tonic seizurestr eated with ativan and phenobarbi talencoura ged abstinence SUDs referralmo nitor for seizure activityco ntinue thiamine 100 mg qdfolate [address] 666 mg tid Bradycardia 90030110 R00 .1 Hx of syncope with implantabl e loop recorderSB in acute care with pausescard iology and EPS consulted- ILR interrogat ed, showed no correlatio n of syncope and pauses, no need for PPM. ILR removed.re commending PSG outpatient to r/o R[facility]- referral paced in [facility] Harmful pa ttern of use of cocaine 97022798 F14.10 refer to SUDsencour aged abstinence provide supportive services /refer to [facility] Homeless 71420864 Z59.00 social media job titles for support and services Asthenia 72350840 R53.1 impaired gait/weakn essPT/OT evalMorse 10 Asthma 542039291 J45.99 8 hxnot currently on medication smonitor for resp/clini aldair changes [id number] Lois Multani MD [facility] on [address] [place] [id number] 07/21/2023 05:52:30 07/27/2023 11:40:25 Asthenia 89767762 R53.1 PT/OTwill monitor Alcohol dependence 87969 003 F10.288 thiamine 100 mg dailyfolic acid 1 mg dailyacamp rosate 666 mg tldsocial work fu to encourage ongoing support and treatment Bradycardia 52550329 R00 .1 not associated with syncopewil l monitor History of seizure due to alcohol withdrawal 8638694139 41875 Z86.69 completed withdrawal protocolwi ll monitor [id number] MIKE REYNOLDS [facility] on [address] [place] [address] 07/24/2023 09:10:19 07/31/2023 15:03:51 Alcohol dependence 28301916 F10.288 there has been no seizure activity reported. hx seizures with withdrawal witnessed clonic tonic seizurestr eated with ativan and phenobarbi talencoura ged abstinence SUDs referralmo nitor for seizure activityco ntinue thiamine 100 mg qdfolate [address] mg tid Laboratory test result abnormal 280992859 R89.9 In acute care rhabdo, hypokalemi a, transamini tis, hypomagnes emia , thrombocyt openia, normocytic , metabolic acidosis , normocytic anemia likely related to etoh abuse,,tx with IVF and supplement al replacemen tmonitor labs Bradycardia 97969761 R00 .1 denies any cardiac sx today. apical rate 70 Hx of syncope with implantabl e loop recorderSB in acute care with pausescard iology and EPS consulted- ILR interrogat ed, showed no correlatio n of syncope and pauses, no need for PPM. ILR removed.re commending PSG outpatient to r/o R[facility]- referral paced in [facility] Harmful pa ttern of use of cocaine 76387838 F14.10 refer to SUDsencour aged abstinence provide supportive services /refer to Homeless 38267000 Z59.00 social media job titles for support and services Asthenia 02090453 R53.1 plan for OTimpaired gait/weakn ess Pineda 10 Asthma 380758260 J45.99 8 hxnot currently on medication smonitor for resp/clini aldair changes [id number] MIKE REYNOLDS [facility] on [address] [place] [id number] 07/26/2023 10:31:42 07/31/2023 15:13:33 Alcohol dependence 19837734 F10.288 there has been no seizure activity reported. hx seizures with withdrawal witnessed clonic tonic seizurestr eated with ativan and phenobarbi talencoura ged abstinence SUDs referralmo nitor for seizure activityco ntinue thiamine 100 mg qdfolate [address] 666 mg tid Bradycardia 32614599 R00 .1 HR 69Hx of syncope with implantabl e loop recorderSB in acute care with pausescard iology and EPS consulted- ILR interrogat ed, showed no correlatio n of syncope and pauses, no need for PPM. ILR removed.re commending PSG outpatient to r/o RAND- referral paced in [facility] Harmful pa ttern of use of cocaine 14019596 F14.10 refer to SUDsencour aged abstinence provide supportive services /refer to Homeless 81506271 Z59.00 social media job titles for support and services Asthenia 28162196 R53.1 plan for OTimpaired gait/weakn ess10/11: he is ambulating with steady gait independen tly. Asthma 067223875 J45.99 8 hxnot currently on medication smonitor for resp/clini aldair changes [id number] MIKE REYNOLDS [facility] on [address] [place] [id number] 08/01/2023 09:31:41 08/08/2023 09:26:07 Alcohol dependence 55374484 F10.288 there has been no seizure activity reported. hx seizures with withdrawal witnessed clonic tonic seizurestr eated with ativan and phenobarbi talencoura ged abstinence SUDs referralmo nitor for seizure activityco ntinue thiamine 100 mg qdfolate [address] 666 mg tid Bradycardia 30801201 R00 .1 HR 69Hx of syncope with implantabl e loop recorderSB in acute care with pausescard iology and EPS consulted- ILR interrogat ed, showed no correlatio n of syncope and pauses, no need for PPM. ILR removed.re commending PSG outpatient to r/o RAND- referral paced in [facility] Harmful pa ttern of use of cocaine 06111898 F14.10 refer to SUDsencour aged abstinence provide supportive services /refer to Homeless 26439839 Z59.00 social media job titles for support and services Asthenia 85967370 R53.1 plan for OTimpaired gait/weakn ess07/26: he is ambulating with steady gait independen tly. Asthma 437430482 J45.99 8 hxnot currently on medication smonitor for resp/clini aldair changes [id number] MIKE REYNOLDS [facility] on [address] [place] [address] 08/04/2023 08:03:49 08/08/2023 11:32:51 Alcohol dependence 40380808 F10.288 08/04: there has been no seizure activity reported. hx seizures with withdrawal witnessed clonic tonic seizurestr eated with ativan and phenobarbi talencoura ged abstinence SUDs referralmo nitor for seizure activityco ntinue thiamine 100 mg qdfolate [address] 666 mg tid Bradycardia 39214914 R00 .1 HR 69Hx of syncope with implantabl e loop recorderSB in acute care with pausescard iology and EPS consulted- ILR interrogat ed, showed no correlatio n of syncope and pauses, no need for PPM. ILR removed.re commending PSG outpatient to r/o RAND- referral paced in [facility] Harmful pa ttern of use of cocaine 94439354 F14.10 refer to SUDsencour aged abstinence provide supportive services /refer to Homeless 11892223 Z59.00 social media job titles for support and services Asthenia 70247258 R53.1 plan for OTimpaired gait/weakn ess/: he is ambulating with steady gait independen tly.08/04: meeting goals with therapy, independen t with care. Asthma 828706835 J45.99 8 hxnot currently on medication smonitor for resp/clini aldair changes [id number] MIKE REYNOLDS [facility] on [address] [place] [address] 08/10/2023 08:14:16 08/17/2023 15:56:48 Alcohol dependence 40738214 F10.288 hx seizures with withdrawal witnessed clonic tonic seizurestr eated with ativan and phenobarbi talencoura ged abstinence SUDs referralmo nitor for seizure activityco ntinue thiamine 100 mg qdfolate [address] 666 mg tid Bradycardia 71484663 R00 .1 Hx of syncope with implantabl e loop recorderSB in acute care with pausescard iology and EPS consulted- ILR interrogat ed, showed no correlatio n of syncope and pauses, no need for PPM. ILR removed.re commending PSG outpatient to r/o [facility]- referral paced in [facility] Harmful pa ttern of use of cocaine 52086903 F14.10 refer to SUDsencour aged abstinence provide supportive services /refer to [facility] Homeless 31375883 Z59.00 social media job titles for support and services Asthenia 29082713 R53.1 08/09/2023 : therapy goals met.He is independen t on on unit. Asthma 725003074 J45.99 8 hxnot currently on medication smonitor for resp/clini aldair changes [id number] MIKE REYNOLDS [facility] on [address] [place] [address] 08/16/2023 07:01:21 08/18/2023 08:46:19 Alcohol dependence 15681838 F10.288 08/16: There has been no reported seizurehx seizures with withdrawal witnessed clonic tonic seizurestr eated with ativan and phenobarbi talencoura ged abstinence SUDs referralmo nitor for seizure activityco ntinue thiamine 100 mg qdfolate [address] 666 mg tid Asthma 263202977 J45.99 8 08/16: Denies any shortness of breath or resp. issuesnot currently on medication smonitor for resp/clini aldair changes [id number] Dayana Jerezjimena Blanchard [facility] on [address] [place] [address] 08/25/2023 10:10:49 08/28/2023 11:33:00 Alcohol dependence 17706578 F10.288 08/16: There has been no reported seizurehx seizures with withdrawal witnessed clonic tonic seizurestr eated with ativan and phenobarbi talencoura ged abstinence SUDs referralmo nitor for seizure activityco ntinue thiamine 100 mg qdfolate [address] 666 mg tid Asthma 501814463 J45.99 8 08/16: Denies any shortness of breath or resp. issuesnot currently on medication smonitor for resp/clini aldair changes Harmful pa ttern of use of cocaine 32631761 F14.10 follow up with outpatient carehas not used during SNF stay Homeless 44452427 Z59.00 discharge to [facility] Sinus bradycardia 120072 05 R00.1 resolved, HR 78 today Laboratory test result abnormal 472699987 R89.9 resolved, follow up with outpt PCP next week Health Concerns Section Related Observation LastModified by Organization Detai ls LastModified Time None Recorded Concern Status LastModified by Organization Details LastModified Time None Recorded Advance Directives Directive Y: Payers Insurance Date Sequence Insurance Name Policy Number Policy Hobbs Covered Member ID Hobbs Member ID Guarantor Name 03/21/2024 1 [place] [facility] [id number] [facility] Notes Date [...] Evaluated by therapy for weakness, admitted to [facility] for continued care and rehab. On exam today he is stable, there is no acute nursing concerns. progressing toward therapy goals. MIKE REYNOLDS [address] [facility], [address], [place], [address], [facility] [employer] 08/01/2023 14:12:08 08/04/2023 text/html ROS as noted [...] Evaluated by therapy for weakness, admitted to [facility] for continued care and rehab. He continue to be medically stable, he has been working with therapy, as of note he has progressed to independent for adl no adaptive device required. On exam he noted ambulating on unit with steady gait, he tells me that he is ok, there is no acute nursing concerns. MIKE REYNOLDS [address] [facility], [address], [place], [address], [facility] [employer] [facility] 08/04/2023 13:02:43 08/10/2023 text/html ROS as noted in the HPI Duarte is seen today for acute rounding visit. Past medical history of ETOH abuse with withdrawal seizures, cocaine abuse, asthma.He has been stable, he offers no complaints. There is no acute nursing concerns. MIKE REYNOLDS [address] [facility], [address], [place], [address], [facility] [employer] 08/10/2023 10:56:55 08/16/2023 text/html Duarte is seen today for routine rounding HAT SIZER 30 day visit. Past medical history of ETOH abuse with withdrawal seizures, cocaine abuse, asthma. Duarte is alert and verbal in NAD. He has been stable seen his last rounding visit, there is no complaints, there is no acute nursing concerns. MIKE REYNOLDS [address] [facility], [address], [place], [address], [facility] 08/16/2023 11:03:33 08/25/2023 text/html ROS as noted in the HPI Duarte is seen today for discharge. Past medical history of ETOH abuse with withdrawal seizures, cocaine abuse, asthma. Duarte is alert and verbal in NAD. He has been stable seen his last rounding visit, there is no complaints, there is no acute nursing concerns. Dayana valle [address] [facility], [address], [place], [address], [facility] 08/25/2023 10:26:05
--- OUTSIDE RECORDS SUMMARY | 2025-10-01 21:12 | XMS_ITS | Encounter Summary ---
Author Organization [facility] Address [address] [place] [address] Phone Care Team Providers Care Strike Operations Officer Name Role Phone Ramin Arnold MD Primary Care Provider [phone] Encounter Details Date Type Department Care Team (Late st Contact Info) Description 11/16/2024 Procedure Pass [facility], [place] [address] [facility], [address], [address] [place] [address] Social History Tobacco Use Types Packs/Day Years [...] 11/16/2024 5:00 PM Ju Hines RN * [place] Suicide Severity Rating Scale (Screener/Recent Self-Report) Question [...] on filedocumented in this encounter Care Teams Strike Operations Officer Relationship Specialty Start Date End Date Ramin Arnold MD PCP - General Family Medicine 05/19/20 documented as of this encounter Additional Source Comments The information contained in this document represents components of the legal health record. It is not the complete legal health record.[facility]
--- OUTSIDE RECORDS SUMMARY | 2025-10-01 21:12 | XMS_ITS | Encounter Summary ---
Author Organization [facility] Address [address] [place] [address] Phone Care Team Providers Care Boat Fueler Name Role Phone Ramin Arnold MD Primary Care Provider [phone] Encounter Details Date Type Department Care Team ([facility] st Contact Info) Description 11/16/2024 Ophth Exam AMANDA Consult from [address] [address] Lit Price MD [address] [place] [address] [email or web address] Social History Tobacco Use [...] 11/16/2024 5:00 PM Ju Hines RN * [place] Suicide Severity Rating Scale (Screener/Recent Self-Report) Question [...] on filedocumented in this encounter Care Teams Boat Fueler Relationship Specialty Start Date End Date Ramin Arnold MD [email or web address] PCP - General Family Medicine 05/19/20 documented as of this encounter Additional Source Comments The information contained in this document represents components of the legal health record. It is not the complete legal health record.[facility]
--- OUTSIDE RECORDS SUMMARY | 2025-10-01 21:12 | XMS_ITS | Encounter Summary ---
Author Organization [facility] Address [address] [place] [address] Phone Care Team Providers Care Family Nurse Name Role Phone Ramin Arnold MD Primary Care Provider [phone] Encounter Details Date Type Department Care Team (Late st Contact Info) Description 05/21/2020 Transcribe Orders [facility] Specimen Processing [address] [place] [address] Ramin Arnold MD [address] [place] [address] [address] [place] [address] [email or web address] COVID-19 ruled out (Primary Dx) Social [...] 5:36 PM EDT) Specimen Source NASOPHARYNGEAL SWAB (BUNK HOUSE WORKER) [facility] COVID Testing Status Sent to [facility] Other 05/21/2020 5:36 PM EDT 05/21/2020 5:47 PM EDT us Ramin Arnold MD LAB GENERAL ORDERABLES Final Res ult [facility] [address] [place] [address] documented in this encounter Visit Diagnoses Diagnosis COVID-19 ruled out- Primary documented in this encounter Additional Health Concerns Infection Onset Date Last Indicated Resolved Time CoV-Exposed Comment:Recent close contact 05/21/2020 05/21/2020 06/04/2020 1:23 AM EDT CoV-Exposed Comment:Recent close contact 06/04/2020 06/04/2020 06/18/2020 1:24 AM EDT CoV-Exposed Comment:Recent close contact 08/26/2020 08/26/2020 09/09/2020 1:24 AM EST documented as of this encounter Care Teams Family Nurse Relationship Specialty Start Date End Date Ramin Arnold MD [email or web address] PCP - General Family Medicine 05/19/20 documented as of this encounter Additional Source Comments The information contained in this document represents components of the legal health record. It is not the complete legal health record.[facility]
--- OUTSIDE RECORDS SUMMARY | 2025-10-01 21:12 | XMS_ITS | Clinical Summary ---
Author Organization [facility] it Address [address] [place] [address] Care Team Providers Care Tomato Grader Name Role Phone Unavailable Primary Care Provider [...]
[2025-10-01 22:36] VITALS: BP 121/75; PULSE 70; RESP 14; TEMP 37.1; O2SAT 97
[2025-10-02 02:06] VITALS: BP 129/88; PULSE 88; RESP 16; TEMP 36.3; O2SAT 95
== END 2025-10-02 02:07 | disposition home or self-care (01) ==
PROVIDERS: Emergency Provider Student in an Organized Health Care Education/Training Program
DX: F10.10 Alcohol abuse, uncomplicated (principal); J45.909 Unspecified asthma, uncomplicated; Z87.891 Personal history of nicotine dependence
CPT/HCPCS: 99283; 99284

== ENCOUNTER 2025-10-06 19:42 | Emergency (ER) | payer MEDICAID, SELFPAY ==
--- NOTE | ~2025-10-06 | CT_ITS ---
CLINICAL HISTORY: etoh fall CT head without contrast Comparison: CT/SR - HEAD HEAD_CSPINE (ADULT) - 09/27/25 21:24 EST Findings: No intra-axial mass, midline shift, hydrocephalus, or acute hemorrhage. Focal area of encephalomalacia in the right frontal lobe, unchanged. Mild cerebral atrophy, greater than expected for patient's age. There is no sinus or mastoid fluid. The orbits are within normal limits. No skull fracture. IMPRESSION: 1. No acute intracranial findings. 2. Mild cerebral atrophy, greater than expected for patient age. This document has been electronically signed by: Rubio Jensen MD on 10/07/2025 02:00:11
--- NOTE | ~2025-10-06 | CT_ITS ---
CLINICAL HISTORY: etoh fall CT cervical spine without contrast Comparison: CT/SR - HEAD HEAD_CSPINE (ADULT) - 09/27/25 21:[address]/SR - CT CERVICAL SPINE WO IV CON - 09/23/25 20:49 EST Findings: Normal vertebral body alignment. No significant degenerative change. No acute fractures or dislocations. Visualized intracranial contents are unremarkable. No cervical fluid collections or masses. No consolidation or effusion at the lung apices. IMPRESSION: No acute findings. This document has been electronically signed by: Rubio Jensen MD on 10/07/2025 01:56:20
[2025-10-06 19:46] VITALS: BP 133/90; BP 142/88; PULSE 66; PULSE 82; RESP 16; TEMP 37; O2SAT 95; BMI 24.2
--- OUTSIDE RECORDS SUMMARY | 2025-10-06 20:15 | XMS_ITS | Encounter Summary ---
Author Organization [facility] Address [address] [place] [address] Phone Care Team Providers Care Machine Hoop Maker Helper Name Role Phone Ramin Arnold MD Primary Care Provider [phone] Encounter Details Date Type Department Care Team (Late st Contact Info) Description 11/16/2024 Ophth Exam [facility] Ear Ophthalmology Trauma Service [address] [place] [address] Laurence Coelho MD [address] [place] [address] [email or web address] Social History Tobacco Use Types Packs/Day [...] on filedocumented in this encounter Care Teams Machine Hoop Maker Helper Relationship Specialty Start Date End Date Ramin Arnold MD [email or web address] PCP - General Family Medicine 05/19/20 documented as of this encounter Additional Source Comments The information contained in this document represents components of the legal health record. It is not the complete legal health record.[facility]
--- OUTSIDE RECORDS SUMMARY | 2025-10-06 20:15 | XMS_ITS | Encounter Summary ---
Author Organization [facility] Address [address] [place] [address] Phone Care Team Providers Care Tone Regulator Name Role Phone Ramin Arnold MD Primary Care Provider [phone] Encounter Details Date Type Department Care Team ([facility] st Contact Info) Description 11/16/2024 Ophth Exam [facility]AN[facility] Consult from [address] [address] Lit Price MD [address] [place] [address] [email or web address] Social History Tobacco Use Types Packs/Day Years [...] on filedocumented in this encounter Care Teams Tone Regulator Relationship Specialty Start Date End Date Ramin Arnold MD PCP - General Family Medicine 05/19/20 documented as of this encounter Additional Source Comments The information contained in this document represents components of the legal health record. It is not the complete legal health record.[facility]
--- OUTSIDE RECORDS SUMMARY | 2025-10-06 20:15 | XMS_ITS | Data Portability ---
Author Organization [facility], Main Office Address [address] [place] [address] Care Team Providers Care Patient Case Coordinator Name Role Phone [facility] Address Organization Details Recorded Time Alcohol dependence 95582189 Active 2019 Riri harman, [facility] 0 10:55:15 Alcohol dependence 61569646 Active 2019 Riri Espinal null, [facility] 0 10:55:21 Sinus bradycardia 95681482 Active 2019 Riri harman, [facility] 0 10:55:22 Asthma 846865206 Active 2019 Riri harman, [facility] 0 10:55:25 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 2022 JESSICA HALEY, INSIDE SALES ADVISOR [address], [place], [address], [facility] 3 17:51:39 Homeless 63979682 Active 2022 JESSICA HALEY, INSIDE SALES ADVISOR [address], [place], [address], [facility] 3 18:07:02 Asthenia 27364419 Active 2022 JESSICA HALEY, [facility] [address], [place], [address], [facility] 3 18:07:05 Bradycardia 79733703 Active 2022 JESSICA HALEY, [facility] [address], [address], [place], [address], [facility] [employer] 3 18:07:11 Laboratory test result abnormal 280373097 Active 2022 JESSICA HALEY, INSIDE SALES ADVISOR [address], [place], [address], [facility] [employer] 3 18:07:15 Problem Notes None recorded. Medical Equipment None Reported. Allergies Allergen ID Allergen Name Allergen Category Reaction Reaction Severity Criticality Documentation Date Start Date Code Code System Note Provider Name and Address Organization Details Recorded Time 23379 shellfish derived food,medi cation Not available Not available Not available 05/19/2020 Riri harman, [facility] 0 08:43:01 Medications Not known to be on any medication Vitals Date Recorded Heart rate Respiratory rate Body temperature Oxygen saturation Systolic And Diastolic Provider Name and Address Organization Details Last Updated DateTime 3 78 /min 18 /min 97.4 [degF] 99 % 115/67 mm[Hg] Dayana Sarmiento -Kierkla [address], [place], [address], [facility] [employer] 3 10:21:31 Social History Question Answer Notes LastModified by Organizat ion Details LastModified Time Tobacco Smoking Status Current Every Day Smoker 2 a day MIKE REYNOLDS [address], [address], [place], [address], [facility] 07/19/2023 17:16:49 Do You Have An [...] Do You Have A Medical Power Of Physician Extender? No Information not available 07/19/2023 What Was [...] anxious, or unable to sleep at night)? [id number] Information not available 07/19/2023 Family History Relationship [...] Hospital 10/17/2023 11:43:55 Tdap 2 completed Nicole harman[place] [...] PF 3 completed Nicole harman [place] - [facility] 01/22/2024 14:23:02 Past Encounters Encounter ID Performer Location Encounter Start Date Encounter Closed Date Diagnosis/Indication Diagnosis SNOMED-CT Code Diagnosis ICD10 Code Diagnosis IMO Codes Diagnosis Note [id number] MIKE Chen [facility] on [address] [place] [address] 05/19/2020 08:42:26 05/29/2020 13:18:57 Alcohol dependence 60386756 F10.288 Hx of withdrawal seizuresFo lic acid 1 mg dailyThiam ine 100 mg dailyPT OT eval and treat Sinus bradycardia 509807 05 R00.1 Implanted seafood fisherman in placeF/u with cardiology Monitor HR Asthma 645026765 J45.99 8 Monitor respirator y status Liver enzy mes level above reference range 663691352 R74.8 Secondary to heavy ETOH useRepeat and monitor [id number] Lois Multani MD [facility] on [address] [place] [address] 05/20/2020 07:06:00 05/29/2020 14:50:19 Alcohol dependence 19474075 F10.20 thiamine 100 mg dailyfolic acid 1 mg dailysocia l work fu to encourage ongoing support and treatment Asthenia 26693528 R53.1 PT/OTwill monitor Liver enzy mes level above reference range 871712574 R74.8 will monitor Sinus bradycardia 202034 05 R00.1 resolvedwi ll monitor [id number] MIKE Chen [facility] on [address] [place] [address] 05/26/2020 09:30:59 05/29/2020 13:59:21 Alcohol dependence 69470431 F10.288 Hx of withdrawal seizuresFo lic acid 1 mg dailyThiam ine 100 mg dailyNo sxs of withdrawal noted Sinus bradycardia 371974 05 R00.1 Implanted seafood fisherman in placeF/u with cardiology Monitor HR-ranges 58-88 Asthma 737012359 J45.99 8 Monitor respirator y statusOn no medication s [id number] MIKE Chen [facility] on [address] [place] [address] 06/12/2020 08:31:05 06/16/2020 10:01:54 Alcohol dependence 03255244 F10.288 Hx of withdrawal seizuresFo lic acid 1 mg dailyThiam ine 100 mg dailyNo signs of withdrawal currently Sinus bradycardia 865539 05 R00.1 Implanted seafood fisherman in placeF/u with cardiology Monitor HR Asthma 088452712 J45.99 8 Monitor respirator y status Liver enzy mes level above reference range 844543051 R74.8 Secondary to heavy ETOH useRepeat LFTs 06/15 [id number] Riri Espinal [facility] on [address] [place] [address] 06/16/2020 11:47:30 06/18/2020 11:34:00 Alcohol dependence 96899173 F10.288 Hx of withdrawal seizuresFo lic acid 1 mg dailyThiam ine 100 mg dailyNo signs of withdrawal Encouraged to remain sober Sinus bradycardia 076719 05 R00.1 Implanted seafood fisherman in placeRemai ns asymptomat ic F/u with cardiology Asthma 908050078 J45.99 8 No respirator y issues currentlyF /u with PCP Liver enzy mes level above reference range 351886212 R74.8 Secondary to heavy ETOH useNow resolved [id number] JESSICA HALEY [facility] on [address] [place] [address] 07/19/2023 15:26:02 07/27/2023 10:51:11 Laboratory test result abnormal 184258277 R89.9 In acute care rhabdo, hypokalemi a, transamini tis, hypomagnes emia , thrombocyt openia, normocytic , metabolic acidosis , normocytic anemia likely related to etoh abuse,,tx with IVF and supplement al replacemen tmonitor labs Alcohol dependence 57916 003 F10.288 hx seizures with withdrawal witnessed clonic tonic seizurestr eated with ativan and phenobarbi talencoura ged abstinence SUDs referralmo nitor for seizure activityco ntinue thiamine 100 mg qdfolate [address] 666 mg tid Bradycardia 48189919 R00 .1 Hx of syncope with implantabl e loop recorderSB in acute care with pausescard iology and EPS consulted- ILR interrogat ed, showed no correlatio n of syncope and pauses, no need for PPM. ILR removed.re commending PSG outpatient to r/o RAND- referral paced in [facility] Harmful pa ttern of use of cocaine 71153360 F14.10 refer to SUDsencour aged abstinence provide supportive services /refer to [facility] Homeless 38278460 Z59.00 social insurance analyst for support and services Asthenia 20643561 R53.1 impaired gait/weakn essPT/OT evalMorse 10 Asthma 253702583 J45.99 8 hxnot currently on medication smonitor for resp/clini aldair changes [id number] Lois Multani MD [facility] on [address] [place] [id number] 07/21/2023 05:52:30 07/27/2023 11:40:25 Asthenia 63190385 R53.1 PT/OTwill monitor Alcohol dependence 12979 003 F10.288 thiamine 100 mg dailyfolic acid 1 mg dailyacamp rosate 666 mg tldsocial work fu to encourage ongoing support and treatment Bradycardia 14141945 R00 .1 not associated with syncopewil l monitor History of seizure due to alcohol withdrawal 9011681091 91506 Z86.69 completed withdrawal protocolwi ll monitor [id number] MIKE REYNOLDS [facility] on [address] [place] [address] 07/24/2023 09:10:19 07/31/2023 15:03:51 Alcohol dependence 54451137 F10.288 there has been no seizure activity reported. hx seizures with withdrawal witnessed clonic tonic seizurestr eated with ativan and phenobarbi talencoura ged abstinence SUDs referralmo nitor for seizure activityco ntinue thiamine 100 mg qdfolate [address] 666 mg tid Laboratory test result abnormal 524453994 R89.9 In acute care rhabdo, hypokalemi a, transamini tis, hypomagnes emia , thrombocyt openia, normocytic , metabolic acidosis , normocytic anemia likely related to etoh abuse,,tx with IVF and supplement al replacemen tmonitor labs Bradycardia 33384477 R00 .1 denies any cardiac sx today. apical rate 70 Hx of syncope with implantabl e loop recorderSB in acute care with pausescard iology and EPS consulted- ILR interrogat ed, showed no correlatio n of syncope and pauses, no need for PPM. ILR removed.re commending PSG outpatient to r/o RAND- referral paced in [facility] Harmful pa ttern of use of cocaine 37599024 F14.10 refer to SUDsencour aged abstinence provide supportive services /refer to Homeless 12767565 Z59.00 social insurance analyst for support and services Asthenia 15946017 R53.1 plan for OTimpaired gait/weakn ess Pineda 10 Asthma 518399249 J45.99 8 hxnot currently on medication smonitor for resp/clini aldair changes [id number] MIKE REYNOLDS [facility] on [address] [place] [address] 07/26/2023 10:31:42 07/31/2023 15:13:33 Alcohol dependence 49405423 F10.288 there has been no seizure activity reported. hx seizures with withdrawal witnessed clonic tonic seizurestr eated with ativan and phenobarbi talencoura ged abstinence SUDs referralmo nitor for seizure activityco ntinue thiamine 100 mg qdfolate [address] 666 mg tid Bradycardia 31897650 R00 .1 HR 69Hx of syncope with implantabl e loop recorderSB in acute care with pausescard iology and EPS consulted- ILR interrogat ed, showed no correlatio n of syncope and pauses, no need for PPM. ILR removed.re commending PSG outpatient to r/o RAND- referral paced in [facility] Harmful pa ttern of use of cocaine 31646765 F14.10 refer to SUDsencour aged abstinence provide supportive services /refer to Homeless 29643865 Z59.00 social insurance analyst for support and services Asthenia 91064905 R53.1 plan for OTimpaired gait/weakn ess10/11: he is ambulating with steady gait independen tly. Asthma 715990231 J45.99 8 hxnot currently on medication smonitor for resp/clini aldair changes [id number] MIKE REYNOLDS [facility] on [address] [place] [address] 08/01/2023 09:31:41 08/08/2023 09:26:07 Alcohol dependence 03154358 F10.288 there has been no seizure activity reported. hx seizures with withdrawal witnessed clonic tonic seizurestr eated with ativan and phenobarbi talencoura ged abstinence SUDs referralmo nitor for seizure activityco ntinue thiamine 100 mg qdfolate [address] 666 mg tid Bradycardia 47510569 R00 .1 HR 69Hx of syncope with implantabl e loop recorderSB in acute care with pausescard iology and EPS consulted- ILR interrogat ed, showed no correlatio n of syncope and pauses, no need for PPM. ILR removed.re commending PSG outpatient to r/o RAND- referral paced in [facility] Harmful pa ttern of use of cocaine 37600621 F14.10 refer to SUDsencour aged abstinence provide supportive services /refer to Homeless 48598234 Z59.00 social insurance analyst for support and services Asthenia 47619396 R53.1 plan for OTimpaired gait/weakn ess07/26: he is ambulating with steady gait independen tly. Asthma 381191784 J45.99 8 hxnot currently on medication smonitor for resp/clini aldair changes [id number] MIKE REYNOLDS [facility] on [address] [place] [address] 08/04/2023 08:03:49 08/08/2023 11:32:51 Alcohol dependence 55685610 F10.288 08/04: there has been no seizure activity reported. hx seizures with withdrawal witnessed clonic tonic seizurestr eated with ativan and phenobarbi talencoura ged abstinence SUDs referralmo nitor for seizure activityco ntinue thiamine 100 mg qdfolate [address] 666 mg tid Bradycardia 26117500 R00 .1 HR 69Hx of syncope with implantabl e loop recorderSB in acute care with pausescard iology and EPS consulted- ILR interrogat ed, showed no correlatio n of syncope and pauses, no need for PPM. ILR removed.re commending PSG outpatient to r/o RAND- referral paced in [facility] Harmful pa ttern of use of cocaine 86890756 F14.10 refer to SUDsencour aged abstinence provide supportive services /refer to Homeless 77515169 Z59.00 social insurance analyst for support and services Asthenia 97228153 R53.1 plan for OTimpaired gait/weakn ess/: he is ambulating with steady gait independen tly.08/04: meeting goals with therapy, independen t with care. Asthma 049777524 J45.99 8 hxnot currently on medication smonitor for resp/clini aldair changes [id number] MIKE REYNOLDS [facility] on [address] [place] [address] 08/10/2023 08:14:16 08/17/2023 15:56:48 Alcohol dependence 59123403 F10.288 hx seizures with withdrawal witnessed clonic tonic seizurestr eated with ativan and phenobarbi talencoura ged abstinence SUDs referralmo nitor for seizure activityco ntinue thiamine 100 mg qdfolate [address] 666 mg tid Bradycardia 73270116 R00 .1 Hx of syncope with implantabl e loop recorderSB in acute care with pausescard iology and EPS consulted- ILR interrogat ed, showed no correlatio n of syncope and pauses, no need for PPM. ILR removed.re commending PSG outpatient to r/o RAND- referral paced in [facility] Harmful pa ttern of use of cocaine 70448359 F14.10 refer to SUDsencour aged abstinence provide supportive services /refer to [facility] Homeless 94054603 Z59.00 social insurance analyst for support and services Asthenia 21943050 R53.1 08/09/2023 : therapy goals met.He is independen t on on unit. Asthma 047829048 J45.99 8 hxnot currently on medication smonitor for resp/clini aldair changes [id number] MIKE REYNOLDS [facility] on [address] [place] [address] 08/16/2023 07:01:21 08/18/2023 08:46:19 Alcohol dependence 29129184 F10.288 08/16: There has been no reported seizurehx seizures with withdrawal witnessed clonic tonic seizurestr eated with ativan and phenobarbi talencoura ged abstinence SUDs referralmo nitor for seizure activityco ntinue thiamine 100 mg qdfolate [address] 666 mg tid Asthma 905885066 J45.99 8 08/16: Denies any shortness of breath or resp. issuesnot currently on medication smonitor for resp/clini aldair changes [id number] Dayana Jerezjimena Blanchard [facility] on [address] [place] [address] 08/25/2023 10:10:49 08/28/2023 11:33:00 Alcohol dependence 58829748 F10.288 08/16: There has been no reported seizurehx seizures with withdrawal witnessed clonic tonic seizurestr eated with ativan and phenobarbi talencoura ged abstinence SUDs referralmo nitor for seizure activityco ntinue thiamine 100 mg qdfolate [address] 666 mg tid Asthma 082451989 J45.99 8 08/16: Denies any shortness of breath or resp. issuesnot currently on medication smonitor for resp/clini aldair changes Harmful pa ttern of use of cocaine 47668416 F14.10 follow up with outpatient carehas not used during SNF stay Homeless 37274892 Z59.00 discharge to care home Sinus bradycardia 768518 05 R00.1 resolved, HR 78 today Laboratory test result abnormal 147156798 R89.9 resolved, follow up with outpt PCP next week Health Concerns Section Related Observation LastModified by Organization Detai ls LastModified Time None Recorded Concern Status LastModified by Organization Details LastModified Time None Recorded Advance Directives Directive Y: Payers Insurance Date Sequence Insurance Name Policy Number Policy Hobbs Covered Member ID Hobbs Member ID Guarantor Name 03/21/2024 1 [place] [facility] [id number] [facility] Notes Date [...] Evaluated by therapy for weakness, admitted to [facility] for continued care and rehab. On exam today he is stable, there is no acute nursing concerns. progressing toward therapy goals. MIKE REYNOLDS [address], [address], [place], [address], [facility] [employer] 08/01/2023 14:12:08 08/04/2023 text/html ROS as noted [...] Evaluated by therapy for weakness, admitted to [facility] for continued care and rehab. He continue to be medically stable, he has been working with therapy, as of note he has progressed to independent for adl no adaptive device required. On exam he noted ambulating on unit with steady gait, he tells me that he is ok, there is no acute nursing concerns. MIKE REYNOLDS [address], [address], [place], [address], [facility] 08/04/2023 13:02:43 08/10/2023 text/html ROS as noted in the HPI Duarte is seen today for acute rounding visit. Past medical history of ETOH abuse with withdrawal seizures, cocaine abuse, asthma.He has been stable, he offers no complaints. There is no acute nursing concerns. MIKE REYNOLDS [address], [address], [place], [address], 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 Past medical history of ETOH abuse with withdrawal seizures, cocaine abuse, asthma. Duarte is alert and verbal in NAD. He has been stable seen his last rounding visit, there is no complaints, there is no acute nursing concerns. MIKE REYNOLDS [address], [address], [place], [address], [facility] 08/16/2023 11:03:33 08/25/2023 text/html ROS as noted in the HPI Duarte is seen today for discharge. Past medical history of ETOH abuse with withdrawal seizures, cocaine abuse, asthma. Duarte is alert and verbal in NAD. He has been stable seen his last rounding visit, there is no complaints, there is no acute nursing concerns. Dayana valle [address], [address], [place], [address], [facility] 08/25/2023 10:26:05
--- OUTSIDE RECORDS SUMMARY | 2025-10-06 20:15 | XMS_ITS | Encounter Summary ---
Author Organization [facility] Address [address] [place] [address] Phone Care Team Providers Care Chief Green Officer Name Role Phone Ramin Arnold MD Primary Care Provider [phone] Encounter Details Date Type Department Care Team ([facility] st Contact Info) Description 11/19/2024 Ophth Exam [facility] Ophthalmology Trauma Service [address] [place] [address] Laurence Coelho MD [address] [place] [address] [email or web address] Social History Tobacco Use Types Packs/Day [...] on filedocumented in this encounter Care Teams Chief Green Officer Relationship Specialty Start Date End Date Ramin Arnold MD [email or web address] PCP - General Family Medicine 05/19/20 documented as of this encounter Additional Source Comments The information contained in this document represents components of the legal health record. It is not the complete legal health record.[facility]
--- OUTSIDE RECORDS SUMMARY | 2025-10-06 20:15 | XMS_ITS | Encounter Summary ---
Author Organization [facility] Address [address] [place] [address] Phone Care Team Providers Care Marine Steam Fitter Helper Name Role Phone Ramin Arnold MD Primary Care Provider [phone] Encounter Details Date Type Department Care Team (Late st Contact Info) Description 05/21/2020 Transcribe Orders [facility] Specimen Processing [address] [place] [address] Ramin Arnold MD [address] [place] [address] [address] [place] [address] [email or web address] [...] 5:36 PM EDT) Specimen Source NASOPHARYNGEAL SWAB (HADOOP INFRASTRUCTURE ARCHITECT) [facility] COVID Testing Status Sent to [facility] Other 05/21/2020 5:36 PM EDT 05/21/2020 5:47 PM EDT us Ramin Arnold MD LAB GENERAL ORDERABLES Final Res ult [facility] [address] [place] [address] documented in this encounter Visit Diagnoses Diagnosis COVID-19 ruled out- Primary documented in this encounter Additional Health Concerns Infection Onset Date Last Indicated Resolved Time CoV-Exposed Comment:Recent close contact 05/21/2020 05/21/2020 06/04/2020 1:23 AM EDT CoV-Exposed Comment:Recent close contact 06/04/2020 06/04/2020 06/18/2020 1:24 AM EDT CoV-Exposed Comment:Recent close contact 08/26/2020 08/26/2020 09/09/2020 1:24 AM EST documented as of this encounter Care Teams Marine Steam Fitter Helper Relationship Specialty Start Date End Date Ramin Arnold MD [email or web address] PCP - General Family Medicine 05/19/20 documented as of this encounter Additional Source Comments The information contained in this document represents components of the legal health record. It is not the complete legal health record.[facility]
--- OUTSIDE RECORDS SUMMARY | 2025-10-06 20:15 | XMS_ITS | Encounter Summary ---
Author Organization [facility] Address [address] [place] [address] Phone Care Team Providers Care Agricultural Services Director Name Role Phone Ramin Arnold MD Primary Care Provider [phone] Encounter Details Date Type Department Care Team (Late st Contact Info) Description 11/17/2024 Procedure Pass [facility] [address] PERIOP DEPT [address] [place] [address] Social History Tobacco Use Types Packs/Day Years [...] filedocumented in this encounter Care Teams Agricultural Services Director Relationship Specialty Start Date End Date Ramin Arnold MD [email or web address] PCP - General Family Medicine 05/19/20 documented as of this encounter Additional Source Comments The information contained in this document represents components of the legal health record. It is not the complete legal health record.[facility]
--- OUTSIDE RECORDS SUMMARY | 2025-10-06 20:15 | XMS_ITS | Encounter Summary ---
Author Organization [facility] Address [address] [place] [address] Phone Care Team Providers Care Senior Medical Director Name Role Phone Ramin Arnold MD Primary Care Provider [phone] Encounter Details Date Type Department Care Team (Late st Contact Info) Description 11/16/2024 Procedure Pass [facility], [address] [facility], 2nd Floor, [address] [place] [address] Social History Tobacco Use Types Packs/Day Years [...] on filedocumented in this encounter Care Teams Senior Medical Director Relationship Specialty Start Date End Date Ramin Arnold MD [email or web address] PCP - General Family Medicine 05/19/20 documented as of this encounter Additional Source Comments The information contained in this document represents components of the legal health record. It is not the complete legal health record.[facility]
--- OUTSIDE RECORDS SUMMARY | 2025-10-06 20:15 | XMS_ITS | Clinical Summary ---
Author Organization [facility] it Address [address] [place] [address] Care Team Providers Care Supervisor Paper Testing Name Role Phone Unavailable Primary Care Provider [...]
--- OUTSIDE RECORDS SUMMARY | 2025-10-06 20:16 | XMS_ITS | Clinical Summary ---
Author Organization [facility] Address [address] [place] [address] Phone Care Team Providers Care Cardiovascular Physician Assistant Name Role Phone Ramin Arnold MD Primary Care Provider [phone] Allergies Active Allergy Reactions Criticality Noted Date [...] Advance Directives For more information, please contact: [phone] (9AM - 5PM Sil/[facility], Monday-Monday) * Full Code (Latest Code Status on File) Date Activated Date Inactivated Comments 11/16/2024 5:47 PM Question Answer Comments Code Status Confirmed With: Patient * Full Code Date Activated Date Inactivated Comments 11/16/2024 5:45 PM 11/16/2024 5:47 PM Question Answer Comments Code Status Confirmed With: Other (specify below ) Care Teams Cardiovascular Physician Assistant Relationship Specialty Start Date End Date Ramin Arnold MD [email or web address] PCP - General Family Medicine 05/19/20 Additional Source Comments The information contained in this document represents components of the legal health record. It is not the complete legal health record.[facility]
[2025-10-06 21:55] LABS: Hematocrit 33.5 % (42.0-52.0); Hemoglobin 11.2 g/dl (14.0-18.0); Imm Gran Abs Auto 0.02 X10*3/uL (0.00-0.03); Imm Gran Pct Auto 0.7 % (0.0-0.4); Lymphocytes Absolute Auto 1.3 X10*3/uL (1.2-4.9); MANUAL DIFF FLAG SCAN; Mean Corpuscular HGB Conc 33.4 g/dl (31.0-36.0); Mean Corpuscular Hemoglobin 32.2 pg (27.0-33.0); Mean Corpuscular Volume 96.3 fL (80.0-98.0); NRBC Abs Auto 0.000 X10*3/uL (0.0-0.012); NRBC Pct Auto 0.0 /100WBC (0.0-0.2); Red Blood Count 3.48 X10*6/uL (4.60-5.80); SCAN SMEAR FLAG 1; White Blood Count 2.7 X10*3/uL (4.8-10.8)
[2025-10-06 21:57] LABS: Platelet Count 94 X10*3/uL (160-400)
[2025-10-06 22:02] LABS: Alanine Aminotransferase 65 U/L (0-40); Albumin Level 4.0 g/dL (3.5-5.0); Alkaline Phosphatase 96 U/L (39-117); Anion Gap 17 (12-20); Aspartate Amino Transferase 163 U/L (5-37); Blood Urea Nitrogen 8 mg/dL (9-16); Calcium 8.4 mg/dL (8.4-10.2); Carbon Dioxide 26 mmol/L (22-29); Chloride 108 mmol/L (96-108); Creatinine Clr Calc Pharmacy 145.2; Estimated Glomerular Filt Rate > 60; Potassium 3.2 mmol/L (3.3-5.1); Sodium 148 mmol/L (135-145); Total Protein 8.0 g/dL (6.5-8.0)
[2025-10-06 22:29] LABS: Cannabinoid Screen Urine Not Detected (Not Detect)
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
[2025-10-07 00:03] VITALS: BP 112/67; PULSE 84; RESP 16; O2SAT 98
[2025-10-07 07:52] VITALS: BP 116/73; PULSE 80; RESP 16; TEMP 36.8; O2SAT 99
--- NOTE | 2025-10-07 08:26 | PC.NURSE ---
obtained report from francesca/took over care at 7am, pt sleeping, rr equal/non labored, vitals previously stable per 6am, call braun within reach, plan of care ongoing
[2025-10-07] MEDS: Potassium Chloride Packet 20 MEQ PACKET 40 MEQ PO (09:49)
[2025-10-07 09:51] VITALS: BP 122/77; PULSE 86; RESP 18; TEMP 36.8; O2SAT 98
== END 2025-10-07 09:52 | disposition home or self-care (01) ==
PROVIDERS: Emergency Provider Emergency Medicine
DX: F10.129 Alcohol abuse with intoxication, unspecified (principal); Y90.8 Blood alcohol level of 240 mg/100 ml or more; E87.6 Hypokalemia; M54.2 Cervicalgia; R51.9 Headache, unspecified; Z79.899 Other long term (current) drug therapy
CPT/HCPCS: 36415; 70450; 72125; 80053; 80307; 85025; 99284

== ENCOUNTER → 2025-10-07 | Outpatient (BNV) | payer MEDICAID, SELFPAY | PROVIDERS: Emergency Provider Emergency Medicine; Visit Provider Radiology Diagnostic Radiology | DX: F10.90 Alcohol use, unspecified, uncomplicated (principal); G31.9 Degenerative disease of nervous system, unspecified; Z04.3 Encounter for examination and observation following other accident | CPT/HCPCS: 70450; 72125 ==

== ENCOUNTER 2025-10-08 21:02 | Emergency (ER) | payer MEDICAID, SELFPAY ==
[2025-10-08 21:10] VITALS: BP 145/90; PULSE 82; O2SAT 97
[2025-10-08 21:11] VITALS: BMI 25.8
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
--- NOTE | 2025-10-08 21:21 | PC.NURSE ---
Pt refusing to climate change analyst Provider notified and aware, spoke with pt and pt willing to change now. Plan of care ongoing.
--- OUTSIDE RECORDS SUMMARY | 2025-10-08 21:26 | XMS_ITS | Encounter Summary ---
Author Organization [facility] Address [address] [place] [address] Phone Care Team Providers Care Auditor Medical Claims Name Role Phone Ramin Arnold MD Primary Care Provider [phone] Encounter Details Date Type Department Care Team (Late st Contact Info) Description 11/16/2024 Procedure [place] [facility] [place] [facility], [address]nd Floor, [address] [place] [address] Social History Tobacco Use Types Packs/Day Years [...] on filedocumented in this encounter Care Teams Auditor Medical Claims Relationship Specialty Start Date End Date Ramin Arnold MD [email or web address] PCP - General Family Medicine 05/19/20 documented as of this encounter Additional Source Comments The information contained in this document represents components of the legal health record. It is not the complete legal health record.[facility]
--- OUTSIDE RECORDS SUMMARY | 2025-10-08 21:26 | XMS_ITS | Clinical Summary ---
Author Organization [facility] it Address [address] [place] [address] Care Team Providers Care Cryptologic Technician Name Role Phone Unavailable Primary Care [...]
--- OUTSIDE RECORDS SUMMARY | 2025-10-08 21:26 | XMS_ITS | Encounter Summary ---
Author Organization [facility] Address [address] [place] [address] Phone Care Team Providers Care Face Painter Name Role Phone Ramin Arnold MD Primary Care Provider [phone] Encounter Details Date Type Department Care Team ([facility] st Contact Info) Description 11/16/2024 Ophth Exam [facility] Consult from [address] [address] Lit Price MD [address] [place] [address] Social History Tobacco Use Types Packs/Day Years [...] on filedocumented in this encounter Care Teams Face Painter Relationship Specialty Start Date End Date Ramin Arnold MD PCP - General Family Medicine 05/19/20 documented as of this encounter Additional Source Comments The information contained in this document represents components of the legal health record. It is not the complete legal health record.[facility]
--- OUTSIDE RECORDS SUMMARY | 2025-10-08 21:26 | XMS_ITS | Clinical Summary ---
Author Organization [facility] Address [address] [place] [address] Phone Care Team Providers Care Upholsterer Helper Name Role Phone Ramin Arnold MD Primary Care Provider [phone] Allergies Active Allergy Reactions Criticality Noted Date [...] Advance Directives For more information, please contact: [phone] (9AM - 5PM [facility], Monday-Monday) * Full Code (Latest Code Status on File) Date Activated Date Inactivated Comments 11/16/2024 5:47 PM Question Answer Comments Code Status Confirmed With: Patient * Full Code Date Activated Date Inactivated Comments 11/16/2024 5:45 PM 11/16/2024 5:47 PM Question Answer Comments Code Status Confirmed With: Other (specify below ) Care Teams Upholsterer Helper Relationship Specialty Start Date End Date Ramin Arnold MD [email or web address] PCP - General Family Medicine 05/19/20 Additional Source Comments The information contained in this document represents components of the legal health record. It is not the complete legal health record.[facility]
--- OUTSIDE RECORDS SUMMARY | 2025-10-08 21:26 | XMS_ITS | Encounter Summary ---
Author Organization [facility] Address [address] [place] [phone] Phone Care Team Providers Care Apparel Patternmaker Name Role Phone Ramin Arnold MD Primary Care Provider [phone] Encounter Details Date Type Department Care Team ([facility] st Contact Info) Description 11/19/2024 Ophth Exam [facility] Op[facility] Trauma Service [address] [place] [address] Laurence Coelho MD [address] [place] [address] [email or web address] Social History Tobacco Use [...] on filedocumented in this encounter Care Teams Apparel Patternmaker Relationship Specialty Start Date End Date Ramin Arnold MD [email or web address] PCP - General Family Medicine 05/19/20 documented as of this encounter Additional Source Comments The information contained in this document represents components of the legal health record. It is not the complete legal health record.[facility]
--- OUTSIDE RECORDS SUMMARY | 2025-10-08 21:26 | XMS_ITS | Encounter Summary ---
Author Organization [facility] Address [address] [place] [address] Phone Care Team Providers Care Ad Operations Coordinator Name Role Phone Ramin Arnold MD Primary Care Provider Encounter Details Date Type Department Care Team (Late st Contact Info) Description 05/21/2020 Transcribe Orders [facility] Specimen Processing [address] [place] [address] Ramin Arnold MD [address] [place] [address] [address], [address] [place] [address] [email or web address] COVID-19 ruled out (Primary Dx) [...] 5:36 PM EDT) Specimen Source NASOPHARYNGEAL SWAB (DRY KILN BURNER) [facility] COVID Testing Status Sent to [facility] Other 05/21/2020 5:36 PM EDT 05/21/2020 5:47 PM EDT us Ramin Arnold MD LAB GENERAL ORDERABLES Final Res ult [facility] [address] [place] [address] documented in this encounter Visit Diagnoses Diagnosis COVID-19 ruled out- Primary documented in this encounter Additional Health Concerns Infection Onset Date Last Indicated Resolved Time CoV-Exposed Comment:Recent close contact 05/21/2020 05/21/2020 06/04/2020 1:23 AM EDT CoV-Exposed Comment:Recent close contact 06/04/2020 06/04/2020 06/18/2020 1:24 AM EDT CoV-Exposed Comment:Recent close contact 08/26/2020 08/26/2020 09/09/2020 1:24 AM EST documented as of this encounter Care Teams Ad Operations Coordinator Relationship Specialty Start Date End Date Ramin Arnold MD [email or web address] PCP - General Family Medicine 05/19/20 documented as of this encounter Additional Source Comments The information contained in this document represents components of the legal health record. It is not the complete legal health record.[facility]
--- OUTSIDE RECORDS SUMMARY | 2025-10-08 21:26 | XMS_ITS | Encounter Summary ---
Author Organization [facility] Address [address] [place] [address] Phone Care Team Providers Care Construction Foreman Name Role Phone Ramin Arnold MD Primary Care Provider Encounter Details Date Type Department Care Team (Late st Contact Info) Description 11/16/2024 Ophth Exam [facility] Eye and Ear Ophthalmology Trauma Service [address] [place] [address] Laurence Coelho MD [address] [place] [address] [email or web address] Social History Tobacco Use Types Packs/Day Years [...] on filedocumented in this encounter Care Teams Construction Foreman Relationship Specialty Start Date End Date Ramin Arnold MD [email or web address] PCP - General Family Medicine 05/19/20 documented as of this encounter Additional Source Comments The information contained in this document represents components of the legal health record. It is not the complete legal health record.[facility]
--- OUTSIDE RECORDS SUMMARY | 2025-10-08 21:26 | XMS_ITS | Data Portability ---
Author Organization [facility], Main Office Address [address] [place] [address] Care Team Providers Care Metallurgical Inspector Name Role Phone [facility] Address Organization Details Recorded Time Alcohol dependence 16752648 Active 2019 Riri harman, [facility] 0 10:55:15 Alcohol dependence 03882876 Active 2019 Riri Espinal null, [facility] 0 10:55:21 Sinus bradycardia 18591130 Active 2019 Riri harman, [facility] 0 10:55:22 Asthma 838230054 Active 2019 Riri harman, [facility] SurgeonKidz [facility] 0 10:55:25 Harmful pattern of use of cocaine 43702439 Active 2022 JESSICA HALEY, BAGGING SALVAGER [address], [address], [place], [address], [facility] SurgeonKidz [facility] 3 17:51:39 Homeless 06912582 Active 2022 JESSICA HALEY, BAGGING SALVAGER [address], [address], [place], [address], [facility] SurgeonKidz [facility] 3 18:07:02 Asthenia 72549955 Active 2022 JESSICA HALEY, [facility] [address], [place], [address], [facility] SurgeonKidz [facility] 3 18:07:05 Bradycardia 75336329 Active 2022 JESSICA HALEY, [facility] [address], [address], [place], [address], [facility] 3 18:07:11 Laboratory test result abnormal 213878196 Active 2022 JESSICA HALEY, BAGGING SALVAGER [address], [place], [address], [facility] 3 18:07:15 Problem Notes None recorded. Medical Equipment None Reported. Allergies Allergen ID Allergen Name Allergen Category Reaction Reaction Severity Criticality Documentation Date Start Date Code Code System Note Provider Name and Address Organization Details Recorded Time 76370 shellfish derived food,medi cation Not available Not available Not available 05/19/2020 Riri harman, [facility] SurgeonKidz [facility] 0 08:43:01 Medications Not known to be on any medication Vitals Date Recorded Heart rate Respiratory rate Body temperature Oxygen saturation Systolic And Diastolic Provider Name and Address Organization Details Last Updated DateTime 3 78 /min 18 /min 97.4 [degF] 99 % 115/67 mm[Hg] Dayana Sarmiento -Kierkla [address], [address], [place], [address], [facility] 3 10:21:31 Social History Question Answer Notes LastModified by Organizat ion Details LastModified Time Tobacco Smoking Status Current Every Day Smoker 2 a day MIKE REYNOLDS [address], [address], [place], [address], [facility] 07/19/2023 17:16:49 Do You Have An [...] Do You Have A Medical Power Of Technology Sales Specialist? No Information not available 07/19/2023 What Was [...] anxious, or unable to sleep at night)? [id number] Information not available 07/19/2023 Family History Relationship [...] 25mcg/0.25 mL dose 2 completed Nicole harman [facility] 10/17/2023 11:43:55 [facility] 2 [facility] 14:21:00 Td (adult), 5 Lf tetanus toxoid, preservative free, adsorbed 7 completed Nicole harman [facility] 01/22/2024 14:21:20 Td (adult), 5 Lf tetanus toxoid, preservative free, adsorbed 8 completed Nicole harman [facility] 01/22/2024 14:21:35 pneumococcal polysaccharide PPV23 8 completed Nicole harman [facility] 01/22/2024 14:21:54 pneumococcal polysaccharide PPV23 6 completed Nicole harman [facility] 01/22/2024 14:22:04 Influenza, adjuvanted, quadrivalent, PF 3 completed Nicole harman [place] [facility] 01/22/2024 14:23:02 Past Encounters Encounter ID Performer Location Encounter Start Date Encounter Closed Date Diagnosis/Indication Diagnosis SNOMED-CT Code Diagnosis ICD10 Code Diagnosis IMO Codes Diagnosis Note [id number] MIKE Chen [facility] on [address] [place] [address] 05/19/2020 08:42:26 05/29/2020 13:18:57 Alcohol dependence 30045791 F10.288 Hx of withdrawal seizuresFo lic acid 1 mg dailyThiam ine 100 mg dailyPT OT eval and treat Sinus bradycardia 505824 05 R00.1 Implanted personnel monitor in placeF/u with cardiology Monitor HR Asthma 977615896 J45.99 8 Monitor respirator y status Liver enzy mes level above reference range 063568983 R74.8 Secondary to heavy ETOH useRepeat and monitor [id number] Lois Multani MD [facility] on [address] [place] [address] 05/20/2020 07:06:00 05/29/2020 14:50:19 Alcohol dependence 61492972 F10.20 thiamine 100 mg dailyfolic acid 1 mg dailysocia l work fu to encourage ongoing support and treatment Asthenia 85836049 R53.1 PT/OTwill monitor Liver enzy mes level above reference range 357693994 R74.8 will monitor Sinus bradycardia 198625 05 R00.1 resolvedwi ll monitor [id number] MIKE Chen [facility] on [address] [place] [address] 05/26/2020 09:30:59 05/29/2020 13:59:21 Alcohol dependence 49531114 F10.288 Hx of withdrawal seizuresFo lic acid 1 mg dailyThiam ine 100 mg dailyNo sxs of withdrawal noted Sinus bradycardia 762532 05 R00.1 Implanted personnel monitor in placeF/u with cardiology Monitor HR-ranges 58-88 Asthma 188587796 J45.99 8 Monitor respirator y statusOn no medication s [id number] MIKE Chen [facility] on [address] [place] [address] 06/12/2020 08:31:05 06/16/2020 10:01:54 Alcohol dependence 99527150 F10.288 Hx of withdrawal seizuresFo lic acid 1 mg dailyThiam ine 100 mg dailyNo signs of withdrawal currently Sinus bradycardia 999496 05 R00.1 Implanted personnel monitor in placeF/u with cardiology Monitor HR Asthma 778055326 J45.99 8 Monitor respirator y status Liver enzy mes level above reference range 371353333 R74.8 Secondary to heavy ETOH useRepeat LFTs 06/15 [id number] Riri Espinal [facility] on [address] [place] [address] 06/16/2020 11:47:30 06/18/2020 11:34:00 Alcohol dependence 91222959 F10.288 Hx of withdrawal seizuresFo lic acid 1 mg dailyThiam ine 100 mg dailyNo signs of withdrawal Encouraged to remain sober Sinus bradycardia 814795 05 R00.1 Implanted personnel monitor in placeRemai ns asymptomat ic F/u with cardiology Asthma 797599929 J45.99 8 No respirator y issues currentlyF /u with PCP Liver enzy mes level above reference range 626800898 R74.8 Secondary to heavy ETOH useNow resolved [id number] JESSICA HALEY [facility] on [address] [place] [address] 07/19/2023 15:26:02 07/27/2023 10:51:11 Laboratory test result abnormal 324907776 R89.9 In acute care rhabdo, hypokalemi a, transamini tis, hypomagnes emia , thrombocyt openia, normocytic , metabolic acidosis , normocytic anemia likely related to etoh abuse,,tx with IVF and supplement al replacemen tmonitor labs Alcohol dependence 74162 003 F10.288 hx seizures with withdrawal witnessed clonic tonic seizurestr eated with ativan and phenobarbi talencoura ged abstinence SUDs referralmo nitor for seizure activityco ntinue thiamine 100 mg qdfolate [address] 666 mg tid Bradycardia 19654617 R00 .1 Hx of syncope with implantabl e loop recorderSB in acute care with pausescard iology and EPS consulted- ILR interrogat ed, showed no correlatio n of syncope and pauses, no need for PPM. ILR removed.re commending PSG outpatient to r/o R[facility]- referral paced in [facility] Harmful pa ttern of use of cocaine 42409297 F14.10 refer to SUDsencour aged abstinence provide supportive services /refer to [facility] Homeless 46932189 Z59.00 social media sr strategy manager for support and services Asthenia 12800678 R53.1 impaired gait/weakn essPT/OT evalMorse 10 Asthma 509822896 J45.99 8 hxnot currently on medication smonitor for resp/clini aldair changes [id number] Lois Multani MD [facility] on [address] [place] [address] 07/21/2023 05:52:30 07/27/2023 11:40:25 Asthenia 82129446 R53.1 PT/OTwill monitor Alcohol dependence 64416 003 F10.288 thiamine 100 mg dailyfolic acid 1 mg dailyacamp rosate 666 mg tldsocial work fu to encourage ongoing support and treatment Bradycardia 02332482 R00 .1 not associated with syncopewil l monitor History of seizure due to alcohol withdrawal 1220066782 49969 Z86.69 completed withdrawal protocolwi ll monitor [id number] MIKE REYNOLDS [facility] on [address] [place] [address] 07/24/2023 09:10:19 07/31/2023 15:03:51 Alcohol dependence 21002456 F10.288 there has been no seizure activity reported. hx seizures with withdrawal witnessed clonic tonic seizurestr eated with ativan and phenobarbi talencoura ged abstinence SUDs referralmo nitor for seizure activityco ntinue thiamine 100 mg qdfolate [address] 666 mg tid Laboratory test result abnormal 607383057 R89.9 In acute care rhabdo, hypokalemi a, transamini tis, hypomagnes emia , thrombocyt openia, normocytic , metabolic acidosis , normocytic anemia likely related to etoh abuse,,tx with IVF and supplement al replacemen tmonitor labs Bradycardia 32767992 R00 .1 denies any cardiac sx today. apical rate 70 Hx of syncope with implantabl e loop recorderSB in acute care with pausescard iology and EPS consulted- ILR interrogat ed, showed no correlatio n of syncope and pauses, no need for PPM. ILR removed.re commending PSG outpatient to r/o RAND- referral paced in [facility] Harmful pa ttern of use of cocaine 71328391 F14.10 refer to SUDsencour aged abstinence provide supportive services /refer to Homeless 90811617 Z59.00 social media sr strategy manager for support and services Asthenia 29516027 R53.1 plan for OTimpaired gait/weakn ess Pineda 10 Asthma 118357399 J45.99 8 hxnot currently on medication smonitor for resp/clini aldair changes [id number] MIKE REYNOLDS [facility] on [address] [place] [address] 07/26/2023 10:31:42 07/31/2023 15:13:33 Alcohol dependence 25529819 F10.288 there has been no seizure activity reported. hx seizures with withdrawal witnessed clonic tonic seizurestr eated with ativan and phenobarbi talencoura ged abstinence SUDs referralmo nitor for seizure activityco ntinue thiamine 100 mg qdfolate [address] 666 mg tid Bradycardia 34866426 R00 .1 HR 69Hx of syncope with implantabl e loop recorderSB in acute care with pausescard iology and EPS consulted- ILR interrogat ed, showed no correlatio n of syncope and pauses, no need for PPM. ILR removed.re commending PSG outpatient to r/o RAND- referral paced in [facility] Harmful pa ttern of use of cocaine 11804388 F14.10 refer to SUDsencour aged abstinence provide supportive services /refer to Homeless 34330989 Z59.00 social media sr strategy manager for support and services Asthenia 54662326 R53.1 plan for OTimpaired gait/weakn ess10/11: he is ambulating with steady gait independen tly. Asthma 993304651 J45.99 8 hxnot currently on medication smonitor for resp/clini aldair changes [id number] MIKE REYNOLDS [facility] on [address] [place] [address] 08/01/2023 09:31:41 08/08/2023 09:26:07 Alcohol dependence 64537574 F10.288 there has been no seizure activity reported. hx seizures with withdrawal witnessed clonic tonic seizurestr eated with ativan and phenobarbi talencoura ged abstinence SUDs referralmo nitor for seizure activityco ntinue thiamine 100 mg qdfolate [address] 666 mg tid Bradycardia 88574450 R00 .1 HR 69Hx of syncope with implantabl e loop recorderSB in acute care with pausescard iology and EPS consulted- ILR interrogat ed, showed no correlatio n of syncope and pauses, no need for PPM. ILR removed.re commending PSG outpatient to r/o RAND- referral paced in [facility] Harmful pa ttern of use of cocaine 16762248 F14.10 refer to SUDsencour aged abstinence provide supportive services /refer to Homeless 51656409 Z59.00 social media sr strategy manager for support and services Asthenia 99521584 R53.1 plan for OTimpaired gait/weakn ess07/26: he is ambulating with steady gait independen tly. Asthma 110374422 J45.99 8 hxnot currently on medication smonitor for resp/clini aldair changes [id number] MIKE REYNOLDS [facility] on [address] [place] [address] 08/04/2023 08:03:49 08/08/2023 11:32:51 Alcohol dependence 78938227 F10.288 08/04: there has been no seizure activity reported. hx seizures with withdrawal witnessed clonic tonic seizurestr eated with ativan and phenobarbi talencoura ged abstinence SUDs referralmo nitor for seizure activityco ntinue thiamine 100 mg qdfolate [address] 666 mg tid Bradycardia 45878075 R00 .1 HR 69Hx of syncope with implantabl e loop recorderSB in acute care with pausescard iology and EPS consulted- ILR interrogat ed, showed no correlatio n of syncope and pauses, no need for PPM. ILR removed.re commending PSG outpatient to r/o RAND- referral paced in [facility] Harmful pa ttern of use of cocaine 98815819 F14.10 refer to SUDsencour aged abstinence provide supportive services /refer to Homeless 71149664 Z59.00 social media sr strategy manager for support and services Asthenia 30600613 R53.1 plan for OTimpaired gait/weakn ess/: he is ambulating with steady gait independen tly.08/04: meeting goals with therapy, independen t with care. Asthma 399448116 J45.99 8 hxnot currently on medication smonitor for resp/clini aldair changes [id number] MIKE REYNOLDS [facility] on [address] [place] [address] 08/10/2023 08:14:16 08/17/2023 15:56:48 Alcohol dependence 57474660 F10.288 hx seizures with withdrawal witnessed clonic tonic seizurestr eated with ativan and phenobarbi talencoura ged abstinence SUDs referralmo nitor for seizure activityco ntinue thiamine 100 mg qdfolate [address] 666 mg tid Bradycardia 69032517 R00 .1 Hx of syncope with implantabl e loop recorderSB in acute care with pausescard iology and EPS consulted- ILR interrogat ed, showed no correlatio n of syncope and pauses, no need for PPM. ILR removed.re commending PSG outpatient to r/o R[facility]- referral paced in [facility] Harmful pa ttern of use of cocaine 83094446 F14.10 refer to SUDsencour aged abstinence provide supportive services /refer to [facility] Homeless 27218539 Z59.00 social media sr strategy manager for support and services Asthenia 99151820 R53.1 08/09/2023 : therapy goals met.He is independen t on on unit. Asthma 616248962 J45.99 8 hxnot currently on medication smonitor for resp/clini aldair changes [id number] MIKE REYNOLDS [facility] on [address] [place] [address] 08/16/2023 07:01:21 08/18/2023 08:46:19 Alcohol dependence 30216286 F10.288 08/16: There has been no reported seizurehx seizures with withdrawal witnessed clonic tonic seizurestr eated with ativan and phenobarbi talencoura ged abstinence SUDs referralmo nitor for seizure activityco ntinue thiamine 100 mg qdfolate [address] 666 mg tid Asthma 058619462 J45.99 8 08/16: Denies any shortness of breath or resp. issuesnot currently on medication smonitor for resp/clini aldair changes [id number] Dayana Jerezjimena Blanchard [facility] on [address] [place] [address] 08/25/2023 10:10:49 08/28/2023 11:33:00 Alcohol dependence 72925314 F10.288 08/16: There has been no reported seizurehx seizures with withdrawal witnessed clonic tonic seizurestr eated with ativan and phenobarbi talencoura ged abstinence SUDs referralmo nitor for seizure activityco ntinue thiamine 100 mg qdfolate [address] 666 mg tid Asthma 561227833 J45.99 8 08/16: Denies any shortness of breath or resp. issuesnot currently on medication smonitor for resp/clini aldair changes Harmful pa ttern of use of cocaine 97470417 F14.10 follow up with outpatient carehas not used during SNF stay Homeless 27639841 Z59.00 discharge to senior care Sinus bradycardia 851691 05 R00.1 resolved, HR 78 today Laboratory test result abnormal 442607984 R89.9 resolved, follow up with outpt PCP next week Health Concerns Section Related Observation LastModified by Organization Detai ls LastModified Time None Recorded Concern Status LastModified by Organization Details LastModified Time None Recorded Advance Directives Directive Y: Payers Insurance Date Sequence Insurance Name Policy Number Policy Hobbs Covered Member ID Hobbs Member ID Guarantor Name 03/21/2024 1 [place] [facility] [id number] [facility] Notes Date Note Type Note Provider Name and Address Organization Details Recorded Time 08/01/2023 text/html ROS as noted in the HPI Seen today for acute rounding visit. Past medical history remarkable for alcohol abuse dependency with withdrawal seizures, syncope with implantable loop recorder in place. Presented to [facility] on 07/08/23 from outside source with both unwitnessed and witnessed seizure; on arrival to ED he had another witnessed tonic clonic seizure associated with post ictal. He was treated with IV ativan and started on phenobarbital protocol. He was admitted for ETOH withdrawal, Rhabdo and and found to have sinus pauses. Evaluated by therapy for weakness, admitted to [facility] for continued care and rehab. On exam today he is stable, there is no acute nursing concerns. progressing toward therapy goals. MIKE REYNOLDS [address], [address], [place], [address], [facility] 08/01/2023 14:12:08 08/04/2023 text/html ROS as noted in the HPI Seen today for acute rounding visit. Past medical history remarkable for alcohol abuse dependency with withdrawal seizures, syncope with implantable loop recorder in place. Presented to [facility] on 07/08/23 from outside source with both unwitnessed and witnessed seizure; on arrival to ED he had another witnessed tonic clonic seizure associated with post ictal. He was treated with IV ativan and started on phenobarbital protocol. He was admitted for ETOH withdrawal, Rhabdo and and found to have sinus pauses. Evaluated by therapy for weakness, admitted to [facility] for continued care and rehab. He continue to be medically stable, he has been working with therapy, as of note he has progressed to independent for adl no adaptive device required. On exam he noted ambulating on unit with steady gait, he tells me that he is ok, there is no acute nursing concerns. MIKE ERYNOLDS [address], [address], [place], [address], [facility] SurgeonKidz [facility] 08/04/2023 13:02:43 08/10/2023 text/html ROS as noted in the HPI Duarte is seen today for acute rounding visit. Past medical history of ETOH abuse with withdrawal seizures, cocaine abuse, asthma.He has been stable, he offers no complaints. There is no acute nursing concerns. MIKE REYNOLDS [address], [address], [place], [address], [facility] [employer] 08/10/2023 10:56:55 08/16/2023 text/html Duarte is seen today for routine rounding PANEL MONITOR 30 day visit. Past medical history of ETOH abuse with withdrawal seizures, cocaine abuse, asthma. Duarte is alert and verbal in NAD. He has been stable seen his last rounding visit, there is no complaints, there is no acute nursing concerns. MIKE REYNOLDS [address], [address], [place], [address], [facility] 08/16/2023 11:03:33 08/25/2023 text/html ROS as noted in the HPI Duarte is seen today for discharge. Past medical history of ETOH abuse with withdrawal seizures, cocaine abuse, asthma. Duarte is alert and verbal in NAD. He has been stable seen his last rounding visit, there is no complaints, there is no acute nursing concerns. Dayana valle [address], [address], [place], [address], [facility] 08/25/2023 10:26:05
--- OUTSIDE RECORDS SUMMARY | 2025-10-08 21:26 | XMS_ITS | Encounter Summary ---
Author Organization [facility] Address [address] [place] [address] Phone Care Team Providers Care Consulting Intern Name Role Phone Ramin Arnold MD Primary Care Provider [phone] Encounter Details Date Type Department Care Team (Late st Contact Info) Description 11/17/2024 Procedure Pass [facility] PERIOP DEPT [address] [place] [address] Social History Tobacco Use Types Packs/Day Years [...] on filedocumented in this encounter Care Teams Consulting Intern Relationship Specialty Start Date End Date Ramin Arnold MD [email or web address] PCP - General Family Medicine 05/19/20 documented as of this encounter Additional Source Comments The information contained in this document represents components of the legal health record. It is not the complete legal health record.[facility]
--- NOTE | 2025-10-08 21:34 | PC.NURSE ---
Pt requested and given drink Plan of care ongoing.
--- NOTE | 2025-10-08 23:26 | PC.NURSE ---
Pt is refusing vital signs at this time
--- NOTE | 2025-10-08 23:30 | PC.NURSE ---
Late entry: Pt yelling and becoming verbally aggressive on stretcher. Pt needing redirection from multiple staff members. AMADA Canales aware and at bedside.
--- NOTE | 2025-10-09 03:44 | PC.NURSE ---
Pt continues to refuse vital signs
[2025-10-09 06:16] VITALS: BP 0/0; PULSE 0; RESP 18; TEMP -17.7; TEMP 0
--- NOTE | 2025-10-09 06:16 | PC.NURSE ---
Pt refused discharge vital signs.
== END 2025-10-09 06:17 | disposition home or self-care (01) ==
PROVIDERS: Emergency Provider Emergency Medicine
DX: F10.120 Alcohol abuse with intoxication, uncomplicated (principal); F14.10 Cocaine abuse, uncomplicated; J45.901 Unspecified asthma with (acute) exacerbation; F19.10 Other psychoactive substance abuse, uncomplicated; Z59.01 Sheltered homelessness; Z87.891 Personal history of nicotine dependence
CPT/HCPCS: 99284

== ENCOUNTER 2025-10-09 18:36 | Emergency (ER) | payer MEDICAID, SELFPAY ==
[2025-10-09 18:45] VITALS: BP 156/92; PULSE 85; O2SAT 95; BMI 27.5
[2025-10-09 19:13] VITALS: BP 106/70; PULSE 74; RESP 16; TEMP 36.9; O2SAT 96
--- OUTSIDE RECORDS SUMMARY | 2025-10-09 19:13 | XMS_ITS | Encounter Summary ---
Author Organization [facility] Address [address] [place] [address] Phone Care Team Providers Care Bakelite Molder Name Role Phone Ramin Arnold MD Primary Care Provider Encounter Details Date Type Department Care Team (Late st Contact Info) Description 11/17/2024 Procedure Pass [facility] PERIOP DEPT [address] [place] [address] Social History Tobacco Use Types Packs/Day Years [...] on filedocumented in this encounter Care Teams Bakelite Molder Relationship Specialty Start Date End Date Ramin Arnold MD PCP - General Family Medicine 05/19/20 documented as of this encounter Additional Source Comments The information contained in this document represents components of the legal health record. It is not the complete legal health record.[facility]
--- OUTSIDE RECORDS SUMMARY | 2025-10-09 19:13 | XMS_ITS | Encounter Summary ---
Author Organization [facility] Address [address] [place] [address] Phone Care Team Providers Care Sumatra Opener Name Role Phone Ramin Arnold MD Primary Care Provider [phone] Encounter Details Date Type Department Care Team ([facility] st Contact Info) Description 11/16/2024 Ophth Exam [facility] Consult from [address] [address] Lit Price MD [address] [place] [address] [email or web address] Social History Tobacco Use Types Packs/Day Years [...] on filedocumented in this encounter Care Teams Sumatra Opener Relationship Specialty Start Date End Date Ramin Arnold MD PCP - General Family Medicine 05/19/20 documented as of this encounter Additional Source Comments The information contained in this document represents components of the legal health record. It is not the complete legal health record.[facility]
--- OUTSIDE RECORDS SUMMARY | 2025-10-09 19:13 | XMS_ITS | Clinical Summary ---
Author Organization [facility] Address [address] [place] [address] Phone Care Team Providers Care Software Developer Mid Level Name Role Phone Ramin Arnold MD Primary Care Provider [phone] Allergies Active Allergy Reactions Criticality Noted Date [...] Advance Directives For more information, please contact: [phone] (9AM - 5PM [facility], Monday-Monday) * Full Code (Latest Code Status on File) Date Activated Date Inactivated Comments 11/16/2024 5:47 PM Question Answer Comments Code Status Confirmed With: Patient * Full Code Date Activated Date Inactivated Comments 11/16/2024 5:45 PM 11/16/2024 5:47 PM Question Answer Comments Code Status Confirmed With: Other (specify below ) Care Teams Software Developer Mid Level Relationship Specialty Start Date End Date Ramin Arnold MD [email or web address] PCP - General Family Medicine 05/19/20 Additional Source Comments The information contained in this document represents components of the legal health record. It is not the complete legal health record.[facility]
--- OUTSIDE RECORDS SUMMARY | 2025-10-09 19:13 | XMS_ITS | Encounter Summary ---
Author Organization [facility] Address [address] [place] [address] Phone Care Team Providers Care Commercial Teller Name Role Phone Ramin Arnold MD Primary Care Provider [phone] Encounter Details Date Type Department Care Team (Late st Contact Info) Description 11/16/2024 Procedure Pass [facility] [address], [address] [facility], 2nd Floor, [address] [place] [address] Social History Tobacco Use Types Packs/Day Years [...] on filedocumented in this encounter Care Teams Commercial Teller Relationship Specialty Start Date End Date Ramin Arnold MD [email or web address] PCP - General Family Medicine 05/19/20 documented as of this encounter Additional Source Comments The information contained in this document represents components of the legal health record. It is not the complete legal health record.[facility]
--- OUTSIDE RECORDS SUMMARY | 2025-10-09 19:13 | XMS_ITS | Encounter Summary ---
Author Organization [facility] Address [address] [place] [address] Phone Care Team Providers Care Computer Systems Integrator Name Role Phone Ramin Arnold MD Primary Care Provider [phone] Encounter Details Date Type Department Care Team (Late st Contact Info) Description 11/16/2024 Ophth Exam [facility] Trauma Service [address] [place] [address] Laurence Coelho MD [address] [place] [id number] [email or web address] Social History Tobacco Use Types Packs/Day Years [...] on filedocumented in this encounter Care Teams Computer Systems Integrator Relationship Specialty Start Date End Date Ramin Arnold MD [email or web address] PCP - General Family Medicine 05/19/20 documented as of this encounter Additional Source Comments The information contained in this document represents components of the legal health record. It is not the complete legal health record.[facility]
--- OUTSIDE RECORDS SUMMARY | 2025-10-09 19:13 | XMS_ITS | Encounter Summary ---
Author Organization [facility] Address [address] [place] [address] Phone Care Team Providers Care Strapping Machine Tender Name Role Phone Ramin Arnold MD Primary Care Provider [phone] Encounter Details Date Type Department Care Team (Late st Contact Info) Description 05/21/2020 Transcribe Orders [facility] Specimen Processing [address] [place] [address] Ramin Arnold MD [address] [place] [address] [address] [place] [address] [email or web address] COVID-19 ruled out (Primary Dx) [...] 5:36 PM EDT) Specimen Source NASOPHARYNGEAL SWAB (ANIMAL RESCUER) [facility] COVID Testing Status Sent to [facility] Other 05/21/2020 5:36 PM EDT 05/21/2020 5:47 PM EDT us Ramin Arnold MD LAB GENERAL ORDERABLES Final Res ult [facility] [address] [place] [address] documented in this encounter Visit Diagnoses Diagnosis COVID-19 ruled out- Primary documented in this encounter Additional Health Concerns Infection Onset Date Last Indicated Resolved Time CoV-Exposed Comment:Recent close contact 05/21/2020 05/21/2020 06/04/2020 1:23 AM EDT CoV-Exposed Comment:Recent close contact 06/04/2020 06/04/2020 06/18/2020 1:24 AM EDT CoV-Exposed Comment:Recent close contact 08/26/2020 08/26/2020 09/09/2020 1:24 AM EST documented as of this encounter Care Teams Strapping Machine Tender Relationship Specialty Start Date End Date Ramin Arnold MD [email or web address] PCP - General Family Medicine 05/19/20 documented as of this encounter Additional Source Comments The information contained in this document represents components of the legal health record. It is not the complete legal health record.[facility]
--- OUTSIDE RECORDS SUMMARY | 2025-10-09 19:13 | XMS_ITS | Encounter Summary ---
Author Organization [facility] Address [address] [place] [address] Phone Care Team Providers Care Manager Immunology Name Role Phone Ramin Arnold MD Primary Care Provider [phone] Encounter Details Date Type Department Care Team ([facility] st Contact Info) Description 11/19/2024 Ophth Exam [facility] Eye and Ear Ophthalmology Trauma Service [address] [place] [address] Laurence Coelho MD [address] [place] [address] [email or web address] Social History Tobacco Use Types [...] filedocumented in this encounter Care Teams Manager Immunology Relationship Specialty Start Date End Date Ramin Arnold MD [email or web address] PCP - General Family Medicine 05/19/20 documented as of this encounter Additional Source Comments The information contained in this document represents components of the legal health record. It is not the complete legal health record.[facility]
--- OUTSIDE RECORDS SUMMARY | 2025-10-09 19:13 | XMS_ITS | Clinical Summary ---
Author Organization [facility] it Address [address] [place] [address] Care Team Providers Care Stock Shaper Name Role Phone Unavailable Primary Care Provider [...]
--- NOTE | 2025-10-09 19:14 | PC.NURSE ---
Pt belongings on shelf #2
--- NOTE | 2025-10-09 19:30 | ECG_ITS ---
Test Reason : CHECK QTC Blood Pressure : */* mmHG Vent. Rate : 71 BPM Atrial Rate : 71 BPM P-R Int : 180 ms QRS Dur : 90 ms QT Int : 408 ms P-R-T Axes : 45 49 49 degrees QTcB Int : 443 ms Normal sinus rhythm Normal ECG When compared with ECG of 29-Sep-2025 18:15, No significant change was found Referred By: Angeli Madera Electronically Signed By: TIFFANY FELIZ MD
[2025-10-09 19:46] LABS: Imm Gran Abs Auto 0.01 X10*3/uL (0.00-0.03); Imm Gran Pct Auto 0.4 % (0.0-0.4); MANUAL DIFF FLAG SCAN; Mean Corpuscular Volume 95.6 fL (80.0-98.0); NRBC Abs Auto 0.000 X10*3/uL (0.0-0.012); NRBC Pct Auto 0.0 /100WBC (0.0-0.2); PLT CLUMP 1; SCAN SMEAR FLAG 1
[2025-10-09] MEDS: Lactated Ringers 1,000 ML 999 ML IV (19:46)
--- NOTE | 2025-10-09 19:46 | PC.NURSE ---
20 g IV placed in right forearm
[2025-10-09 19:48] LABS: Hematocrit 32.7 % (42.0-52.0); Hemoglobin 10.9 g/dl (14.0-18.0); Lymphocytes Absolute Auto 0.8 X10*3/uL (1.2-4.9); Mean Corpuscular HGB Conc 33.3 g/dl (31.0-36.0); Mean Corpuscular Hemoglobin 31.9 pg (27.0-33.0); Red Blood Count 3.42 X10*6/uL (4.60-5.80)
[2025-10-09 20:16] LABS: Platelet Count 97 X10*3/uL (160-400); White Blood Count 2.7 X10*3/uL (4.8-10.8)
[2025-10-09 20:22] LABS: Resp Syncy Virus RNA Qual PCR NEGATIVE (Negative); SARS COV2 PCR INHOUSE NEGATIVE (Negative)
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
[2025-10-09 21:34] LABS: Alanine Aminotransferase 66 U/L (0-40); Albumin Level 3.7 g/dL (3.5-5.0); Alkaline Phosphatase 98 U/L (39-117); Anion Gap 14 (12-20); Aspartate Amino Transferase 138 U/L (5-37); Blood Urea Nitrogen 5 mg/dL (9-16); Calcium 8.1 mg/dL (8.4-10.2); Carbon Dioxide 26 mmol/L (22-29); Chloride 108 mmol/L (96-108); Creatinine Clr Calc Pharmacy 160.0; Estimated Glomerular Filt Rate > 60; Magnesium 1.6 mg/dL (1.6-2.6); Potassium 3.4 mmol/L (3.3-5.1); Sodium 145 mmol/L (135-145); Total Protein 7.5 g/dL (6.5-8.0)
[2025-10-09 22:23] VITALS: BP 98/63; PULSE 88; RESP 16; O2SAT 93
--- NOTE | 2025-10-10 00:07 | PC.NURSE ---
assumed care of pt. pt resting in stretcher with eyes closed. respirations even and unlabored.
[2025-10-10 06:02] VITALS: BP 131/81; PULSE 83; RESP 18; TEMP 36.9; O2SAT 95
[2025-10-10] MEDS: Naloxone HCl Nasal TAKE HOME 4 MG SPRAY 8 MG NOSTRILALT (11:14)
[2025-10-10 11:25] VITALS: BP 131/81; PULSE 83; RESP 18; TEMP 36.9; O2SAT 95
== END 2025-10-10 11:26 | disposition home or self-care (01) ==
PROVIDERS: Emergency Provider Emergency Medicine
DX: F10.129 Alcohol abuse with intoxication, unspecified (principal); Y90.8 Blood alcohol level of 240 mg/100 ml or more; R11.0 Nausea; R51.9 Headache, unspecified; Z03.818 Encounter for observation for suspected exposure to other biological agents ruled out; Z79.899 Other long term (current) drug therapy; Z51.81 Encounter for therapeutic drug level monitoring
CPT/HCPCS: 80053; 80307; 83735; 85025; 87637; 93005; 96365; 99285; J7120; S9485

== ENCOUNTER → 2025-10-09 19:30 | Outpatient (BNV) | payer MEDICAID, SELFPAY | PROVIDERS: Emergency Provider Emergency Medicine; Visit Provider Internal Medicine Cardiovascular Disease | DX: Z13.6 Encounter for screening for cardiovascular disorders (principal) | CPT/HCPCS: 93010 ==